=== PATIENT | female | born 1940 | race American Indian/Alaskan Native ===

== ENCOUNTER 2016-07-19 13:33 | Inpatient (IN) | payer MEDICARE, BC ==
[2016-07-19] MEDS ORDERED: Oxycodone/Acetaminophen 5/325 mg Tab PO STA (14:11)
--- NOTE | 2016-07-19 14:16 | C.PDOC ---
History Of Present Illness <Gita Still - Last Filed: 07/19/16 18:57> <BrianJericho R - Last Filed: 07/19/16 20:58> The patient, a 75 y/o female, presents to the ED for evaluation of left hip and left thigh pain which began after she sustained a fall earlier today. Patient states she slipped and fell from two steps. Patient has chronically severe lymphedema in her bilateral lower extremities. Patient denies LOC, headache, neck pain, back pain, or upper/lower extremity numbness/weakness. (TessyKathy fournierGita A) History Per: Patient History/Exam Limitations: no limitations Onset/Duration Of Symptoms: Hrs Current Symptoms Are (Timing): Still Present Additional History Per: Patient - Hip Description Of Injury: Fell - Knee Description Of Injury: Fell <Gita Still - Last Filed: 07/19/16 18:57> <TorresOctaviaJericho R - Last Filed: 07/19/16 20:58> Time Seen by Provider: 07/19/16 13:44 Chief Complaint (Nursing): Lower Extremity Problem/Injury Past Medical History Reviewed: Historical Data, Nursing Documentation, Vital Signs - Medical History PMH: Anemia, HTN, Pneumonia Denies: Chronic Kidney Disease Surgical History: Cholecystectomy (in 2010) Family History: States: Unknown Family Hx - Social History Hx Tobacco Use: No Hx Alcohol Use: No Hx Substance Use: No - Immunization History Hx Tetanus Toxoid Vaccination: No Hx Influenza Vaccination: Yes Hx Pneumococcal Vaccination: Yes <Gita Still - Last Filed: 07/19/16 18:57> Vital Signs: Last Vital Signs Temp 97.9 F 07/19/16 20:45 Pulse 74 07/19/16 20:45 Resp 20 07/19/16 20:45 BP 155/60 H 07/19/16 20:45 Pulse Ox 96 07/19/16 20:45 - [facility] Procedures CENTRAL VENOUS CATHETER PLACEMENT WITH GUIDANCE (02/16/14) PACKED CELL TRANSFUSION (02/16/14) VACCINATION NEC (02/16/14) Review Of Systems Except As Marked, All Systems Reviewed And Found Negative. Respiratory: Negative for: Shortness of Breath Musculoskeletal: Positive for: Other (+left hip and left thigh pain ). Negative for: Neck Pain Neurological: Negative for: Weakness, Numbness, Other (no LOC, no head injury ) <Gita Still - Last Filed: 07/19/16 18:57> Physical Exam - Physical Exam Appears: Non-toxic, No Acute Distress Skin: Normal Color, Warm, Dry Head: Atraumatic, Normacephalic, No Tenderness Eye(s): bilateral: Normal Inspection, EOMI Oral Mucosa: Moist Neck: Normal ROM, Supple Chest: Symmetrical, No Deformity, No Tenderness Cardiovascular: Rhythm Regular, No Murmur Respiratory: Normal Breath Sounds, No Rales, No Rhonchi, No Wheezing Back: Normal Inspection, No Vertebral Tenderness, No Paraspinal Tenderness Extremity: Tenderness (to left buttock and left hip region on palpation ), Capillary Refill (less than 2 seconds), Other (+chornic lymphedema to b/l lower extremities ) Pulses: Left Dorsalis Pedis: Normal, Right Dorsalis Pedis: Normal Neurological/Psych: Oriented x3, Normal Speech, Normal Cognition Gait: Unable To Assess <Gita Still - Last Filed: 07/19/16 18:57> ED Course And Treatment - Laboratory Results Result Diagrams: 07/19/16 18:13 07/19/16 18:13 Lab Interpretation: Abnormal O2 Sat by Pulse Oximetry: 98 (on RA) Pulse Ox Interpretation: Normal - Other Rad Femur XR X-Ray: Interpreted by Me, Viewed By Me, Read By Radiologist Interpretation: Accession No. : [id number]. Patient Name / ID : HORTENSIA CMELROY / [id number]. Exam Date : 07/19/2016 14:54:02 ( Approved ). Study Comment : Sex / Age : F / 75Y. Creator : Radha Kohli MD. Dictator : Radha Kohli MD. Biofuels Engineering Manager : Third Officer : Radha Kohli MD. Approver2 : Report Date : 07/19/2016 16:25:29. My Comment : . Left femur radiographs. Indication: Pain. Comparison: None available. Findings: Examination limited by habitus and patient positioning due to the condition. No acute displaced fracture or dislocation identified. No evidence of radiopaque foreign body. Impression: Limited study. No acute displaced fracture dislocation identified. If symptoms persist or if there is continued clinical concern, x-ray follow-up in 7-10 days should be considered. Pelvis XR X-Ray: Interpreted by Me, Viewed By Me, Read By Radiologist Interpretation: Accession No. : [id number]. Patient Name / ID : HORTENSIA MCELROY / [id number]. Exam Date : 07/19/2016 14:53:45 ( Approved ). Study Comment : Sex / Age : F / 75Y. Creator : Radha Kohli MD. Dictator : Radha Kohli MD. Biofuels Engineering Manager : Third Officer : Radha Kohli MD. Approver2 : Report Date : 07/19/2016 16:23:40. My Comment : . PROCEDURE: Radiographs of the pelvis. HISTORY: pain. COMPARISON: None available. FINDINGS: Examination limited by habitus. BONES: No acute displaced fracture. JOINTS: No dislocation. The pubic symphysis appears unremarkable. OTHER FINDINGS: No significant joint effusion appreciated. Soft tissues appear unremarkable. No evidence of radiopaque foreign body. IVC filter. IMPRESSION: Examination limited by habitus. No acute displaced fracture, dislocation, or significant joint effusion identified. If high clinical index of suspicion for occult fracture persists, cross-sectional imaging may be considered for further evaluation. IVC filter. Lumbar Spine XR X-Ray: Interpreted by Me, Viewed By Me, Read By Radiologist Interpretation: Accession No. : [id number]. Patient Name / ID : HORTENSIA MCELROY / [id number]. Exam Date : 07/19/2016 14:53:29 ( Approved ). Study Comment : Sex / Age : F / 75Y. Creator : Radha Kohli MD. Dictator : Radha Kohli MD. Biofuels Engineering Manager : Third Officer : Radha Kohli MD. Approver2 : Report Date : 07/19/2016 16:20:51. My Comment : . PROCEDURE: Radiographs of the Lumbar Spine. HISTORY: pain. COMPARISON : None available. FINDINGS: Alignment appears satisfactory. Multilevel degenerative changes including small osteophyte formation and intervertebral disc space narrowing. Intervertebral disc space narrowing most severe at L4-L5 and L5-S1. Facet hypertrophy. No acute displaced fracture or subluxation identified. IVC filter at the L2 through L4 level. IMPRESSION: Multilevel degenerative changes. IVC filter. Progress Note: Left Femur XR, Left Hip XR and LS Spine/AP LAT XR ordered and reviewed. Patient received Percocet PO. Reassessment Condition: Improved - Physician Consult Information Physician Contacted: Junito Foster Outcome Of Conversation: admit <Gita Still - Last Filed: 07/19/16 18:57> - Laboratory Results Result Diagrams: 07/19/16 18:13 07/19/16 18:13 <Jericho Torres - Last Filed: 07/19/16 20:58> Disposition Discussed With : Junito Foster Counseled Patient/Family Regarding: Studies Performed, Diagnosis, Need For Followup - Disposition Disposition Time: 16:30 - POA Present On Arrival: None <Gita Still - Last Filed: 07/19/16 18:57> <Jericho Torres - Last Filed: 07/19/16 20:58> - Disposition Disposition: HOME/ ROUTINE Condition: STABLE - Clinical Impression Clinical Impression: Hip pain, Peripheral edema, Fall (on) (from) other stairs and steps, initial encounter, Anemia associated with nutritional deficiency - PA / [employer]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 - Scribe Statement The provider has reviewed the documentation as recorded by the Scribe (Amy Ferreira) <Gita Still - Last Filed: 07/19/16 18:57> <Jericho Torres - Last Filed: 07/19/16 20:58> - Scribe Statement All medical record entries made by the Scribe were at my direction and personally dictated by me. I have reviewed the chart and agree that the record accurately reflects my personal performance of the history, physical exam, medical decision making, and the department course for this patient. I have also personally directed, reviewed, and agree with the discharge instructions and disposition. (Gita Still) Decision To Admit - Pt Status Changed To: Hospital Disposition Of: Inpatient - Admit Certification Admit to Inpatient:: After my assessment, the patient will require hospitalization for at least two midnights. This is because of the severity of symptoms shown, intensity of services needed, and/or the medical risk in this patient being treated as an outpatient. - InPatient: Physician Admission Certification: I certify that this patient requires 2 or more midnights of care for the following reason:: Anemia - . Bed Request Type: Regular <Gita Still - Last Filed: 07/19/16 18:57> <Jericho Torres - Last Filed: 07/19/16 20:58> - . Patient Diagnosis: Hip pain, Peripheral edema, Fall (on) (from) other stairs and steps, initial encounter, Anemia associated with nutritional deficiency Procedures - EJ/Peripheral Line Consent Obtained: verbal consent Skin Cleansed in Sterile Fashion: Yes (inserted on right side of neck ) Size: 20 IV Secured and Dressing Applied: Yes Patient Tolerated Procedure: Well <Jericho Torres - Last Filed: 07/19/16 20:58>
[2016-07-19] MEDS ORDERED: Oxycodone/Acetaminophen 5/325 mg Tab ONE (14:33)
--- NOTE | 2016-07-19 16:22 | RAD ---
PROCEDURE: Radiographs of the Lumbar Spine. HISTORY: pain COMPARISON: None available. FINDINGS: Alignment appears satisfactory. Multilevel degenerative changes including small osteophyte formation and intervertebral disc space narrowing. Intervertebral disc space narrowing most severe at L4-L5 and L5-S1. Facet hypertrophy. No acute displaced fracture or subluxation identified. IVC filter at the L2 through L4 level. IMPRESSION: Multilevel degenerative changes. IVC filter.
--- NOTE | 2016-07-19 16:25 | RAD ---
PROCEDURE: Radiographs of the pelvis. HISTORY: pain COMPARISON: None available. FINDINGS: Examination limited by habitus. BONES: No acute displaced fracture. JOINTS: No dislocation. The pubic symphysis appears unremarkable. OTHER FINDINGS: No significant joint effusion appreciated. Soft tissues appear unremarkable. No evidence of radiopaque foreign body. IVC filter. IMPRESSION: Examination limited by habitus. No acute displaced fracture, dislocation, or significant joint effusion identified. If high clinical index of suspicion for occult fracture persists, cross-sectional imaging may be considered for further evaluation. IVC filter.
--- NOTE | 2016-07-19 16:27 | RAD ---
Left femur radiographs Indication: Pain Comparison: None available Findings: Examination limited by habitus and patient positioning due to the condition. No acute displaced fracture or dislocation identified. No evidence of radiopaque foreign body. Impression: Limited study. No acute displaced fracture dislocation identified. If symptoms persist or if there is continued clinical concern, x-ray follow-up in 7-10 days should be considered.
[2016-07-19 18:24] LABS: INR 1.5
[2016-07-19 18:26] LABS: HEMATOCRIT 17.6 % (34.0-47.0); MEAN CELL VOLUME 102.9 fL (81.0-99.0); MEAN CORPUSCULAR HGB CONC 29.2 g/dL (33.0-37.0); RED CELL DISTRIBUTION WIDTH 24.7 % (11.5-14.5); WHITE BLOOD COUNT 5.1 K/uL (4.8-10.8)
[2016-07-19 18:27] LABS: CHLORIDE 106 mmol/L (98-107); POTASSIUM 4.2 mmol/L (3.6-5.2); SODIUM 143 mmol/L (132-148)
[2016-07-19 18:30] LABS: ALB/GLOB RATIO 0.6 (1.0-2.1); ALKALINE PHOSPHATASE 328 U/L (38-126); ALT/SGPT 33 U/L (9-52); AST/SGOT 31 U/L (14-36); BILIRUBIN,TOTAL 1.9 mg/dL (0.2-1.3); BLOOD UREA NITROGEN 22 mg/dL (7-17); CARBON DIOXIDE 22 mmol/L (22-30); GFR AFRICAN-AMERICAN > 60; GLUCOSE,RANDOM 135 mg/dL (65-105); TOTAL PROTEIN 8.9 g/dL (6.3-8.3)
[2016-07-19 18:31] LABS: CALCIUM 8.3 mg/dl (8.6-10.4)
[2016-07-19 19:17] LABS: BASO % 0.8 % (0.0-2.0); EOS % 0.1 % (0.0-4.0); LYMPH # 1.9 K/uL (1.0-4.3); LYMPH % 36.5 % (20.0-40.0); MONO # 0.9 K/uL (0.0-0.8); MONO % 16.7 % (0.0-10.0); NRBC % 3.4 % (0.0-2.0)
[2016-07-19 22:30] VITALS: BMI 47.0
--- NOTE | 2016-07-19 23:36 | CP.PCM.HP ---
History of Present Illness - History of Present Illness History of Present Illness: 75 year old female who sustained afall in [facility] comes to the [facility] ER for evaluation. Xrays and labs ordered. Hgb 5 , hospitalization was suggested and transfusion with two units of packed cell. Past history includes thrombophlebitis, hypertension, diabetes mellitus and degenerative arthritis. Present on Admission - Present on Admission Any Indicators Present on Admission: No History of DVT/PE: Yes History of Uncontrolled Diabetes: No Urinary Catheter: No Decubitus Ulcer Present: No History Surgical Site Infection Following: None Review of Systems - Review of Systems Systems not reviewed;Unavailable: Unstable Vital Signs - Constitutional Constitutional: Fatigue - EENT Eyes: Dry Eye Ears: Dizziness Nose/Mouth/Throat: Dry Mouth - Cardiovascular Cardiovascular: Dyspnea on Exertion - Respiratory Respiratory: Dyspnea on Exertion - Gastrointestinal Gastrointestinal: Belching - Reproductive: Female Reproductive:Female: Post Menopausal - Menstruation Menstruation: Post Menopausal - Musculoskeletal Musculoskeletal: Arthralgias - Integumentary Integumentary: Dry Skin - Neurological Neurological: Dizziness - Psychiatric Psychiatric: Depression Past Patient History - Infectious Disease Hx of Infectious Diseases: None - Tetanus Immunizations Tetanus Immunization: Unknown, Up to Date - Past Medical History & Family History Past Medical History?: Yes - Past Social History Smoking Status: Never Smoked Chewing Tobacco Use: No Cigar Use: No - CARDIAC Hx Hypertension: Yes - PULMONARY Hx Pneumonia: Yes - NEUROLOGICAL Hx Neurological Disorder: No - HEENT Hx HEENT Problems: No - RENAL Hx Chronic Kidney Disease: No - ENDOCRINE/METABOLIC Hx Diabetes Mellitus Type 1: Yes Hx Diabetes Mellitus Type 2: Yes - HEMATOLOGICAL/ONCOLOGICAL Hx Anemia: Yes Hx Blood Transfusions: Yes - INTEGUMENTARY Hx Dermatological Problems: No - MUSCULOSKELETAL/RHEUMATOLOGICAL Hx Falls: Yes (06/27/16) Other/Comment: Edema of both lower legs for many years. - GASTROINTESTINAL Hx Gastrointestinal Disorders: No - GENITOURINARY/GYNECOLOGICAL Hx Genitourinary Disorders: No - PSYCHIATRIC Hx Substance Use: No - SURGICAL HISTORY Hx Cholecystectomy: Yes (in 2010) - ANESTHESIA Hx Anesthesia: No Hx Anesthesia Reactions: No Hx Malignant Hyperthermia: No Has any member of the family had a problem w/ anesthesia?: No Meds Allergies/Adverse Reactions: Allergies Allergy/AdvReac Type Severity Reaction Status Date / Time No Known Allergies Allergy Verified 07/19/16 13:40 Physical Exam - Constitutional Appears: Chronically Ill - Head Exam Head Exam: NORMAL INSPECTION - Eye Exam Eye Exam: Normal appearance Pupil Exam: NORMAL ACCOMODATION - ENT Exam ENT Exam: Mucous Membranes Dry - Neck Exam Neck exam: Positive for: Normal Inspection - Respiratory Exam Respiratory Exam: Decreased Breath Sounds - Cardiovascular Exam Cardiovascular Exam: Irregular Rhythm - GI/Abdominal Exam GI & Abdominal Exam: Normal Bowel Sounds - Rectal Exam Rectal Exam: Deferred - Exam External exam: NORMAL EXTERNAL EXAM - Extremities Exam Extremities exam: Positive for: tenderness - Back Exam Back exam: NORMAL INSPECTION - Neurological Exam Neurological exam: Oriented x3 - Psychiatric Exam Psychiatric exam: Depressed Results - Vital Signs Recent Vital Signs: Last Vital Signs Temp 97.5 F L 07/19/16 21:01 Pulse 75 07/19/16 21:01 Resp 20 07/19/16 21:01 BP 150/61 07/19/16 21:01 Pulse Ox 96 07/19/16 21:01 - Labs Result Diagrams: 07/19/16 18:13 07/19/16 18:13 Labs: Laboratory Results - last 24 hr 07/19/16 22:46 POC Glucose (mg/dL) 162 H Assessment & Plan (1) Anemia Status: Acute Priority: High (2) Diabetes mellitus type 2 in obese Status: Acute Priority: Medium (3) Degenerative disc disease at L5-S1 level Status: Acute Priority: Medium (4) Thrombophlebitis Status: Acute Priority: Medium (5) Osteoarthritis Status: Acute Priority: Medium
[2016-07-20] MEDS ORDERED: Lidocaine 1% Inj (20ml) INFIL ONE (07:15)
[2016-07-20] MEDS: (Novolin R) Insulin Human Regular 100 units/ml vial SC SCH ×4 (08:12→21:59)
[2016-07-20 08:16] LABS: HEMATOCRIT 23.6 % (34.0-47.0); MEAN CORPUSCULAR HEMOGLOBIN 29.4 pg (27.0-31.0); MEAN CORPUSCULAR HGB CONC 30.3 g/dL (33.0-37.0); MEAN PLATELET VOLUME 7.3 fL (7.2-11.7); RED CELL DISTRIBUTION WIDTH 24.2 % (11.5-14.5); WHITE BLOOD COUNT 6.2 K/uL (4.8-10.8)
[2016-07-20 09:05] LABS: INR 1.5
[2016-07-20] MEDS: Pantoprazole 40 mg EC Tab PO SCH (10:11)
[2016-07-20] MEDS: (Lantus) Insulin Glargine, Recombinant SC SCH (10:17)
[2016-07-20] MEDS: Ammonium Lactate 12% Lotion (225 g) EXT SCH ×2 (10:39→18:22)
--- NOTE | 2016-07-20 11:35 | CP.PCM.CON ---
History of Present Illness - History of Present Illness History of Present Illness: Vascular Surgery Consult Re: HPI: 75F presented S/P fall in her home without head trauma or LOC. Pt was found to be anemic and was admitted for transfusion. Surgery consulted for lymphedema. Pt states that after the fall her legs became more edematous than her usual chronic edema. Denies any pain in her LE bilaterally at this time, no other complaints. Her legs are cared for at the [facility]. PMH: Anemia, thrombocytopenia, DJD, DM, CAD, Thrombophlebitis PSH: IVC filter, Sarita SH: No tobacco, EtOH or Drug use All: NKDA Meds: See JUN, on Coumadin Review of Systems - Review of Systems All systems: reviewed and no additional remarkable complaints except (as per HPI ) Past Patient History - Infectious Disease Hx of Infectious Diseases: None - Tetanus Immunizations Tetanus Immunization: Unknown, Up to Date - Past Medical History & Family History Past Medical History?: Yes - Past Social History Smoking Status: Never Smoked Chewing Tobacco Use: No Cigar Use: No - CARDIAC Hx Hypertension: Yes - PULMONARY Hx Pneumonia: Yes - NEUROLOGICAL Hx Neurological Disorder: No - HEENT Hx HEENT Problems: No - RENAL Hx Chronic Kidney Disease: No - ENDOCRINE/METABOLIC Hx Diabetes Mellitus Type 1: Yes Hx Diabetes Mellitus Type 2: Yes - HEMATOLOGICAL/ONCOLOGICAL Hx Anemia: Yes Hx Blood Transfusions: Yes - INTEGUMENTARY Hx Dermatological Problems: No - MUSCULOSKELETAL/RHEUMATOLOGICAL Hx Falls: Yes (06/27/16) Other/Comment: Edema of both lower legs for many years. - GASTROINTESTINAL Hx Gastrointestinal Disorders: No - GENITOURINARY/GYNECOLOGICAL Hx Genitourinary Disorders: No - PSYCHIATRIC Hx Substance Use: No - SURGICAL HISTORY Hx Cholecystectomy: Yes (in 2010) - ANESTHESIA Hx Anesthesia: No Hx Anesthesia Reactions: No Hx Malignant Hyperthermia: No Has any member of the family had a problem w/ anesthesia?: No Meds Allergies/Adverse Reactions: Allergies Allergy/AdvReac Type Severity Reaction Status Date / Time No Known Allergies Allergy Verified 07/19/16 13:40 - Medications Medications: Current Medications Enalapril Maleate (Vasotec) 20 mg PO BID [facility] Last Admin: 07/20/16 10:11 Dose: 20 mg Ferrous Sulfate (Feosol) 325 mg PO DAILY [facility] Last Admin: 07/20/16 10:11 Dose: 325 mg Insulin Glargine (Lantus) 20 unit SC DAILY [facility] Last Admin: 07/20/16 10:17 Dose: 20 units Insulin Human Regular (Novolin R) 0 unit SC ACHS [facility] PRN Reason: Protocol Last Admin: 07/20/16 08:12 Dose: 1 unit Lactic Acid (Lac-Hydrin 12% Lotion (225 G)) 1 gm EXT BID [facility] Last Admin: 07/20/16 10:39 Dose: 1 gm Lorazepam (Ativan) 0.5 mg PO HS JOSIE Pantoprazole Sodium (Protonix Ec Tab) 40 mg PO DAILY [facility] Last Admin: 07/20/16 10:11 Dose: 40 mg Zolpidem Tartrate (Ambien) 5 mg PO HS PRN PRN Reason: Insomnia Physical Exam - Constitutional Appears: Non-toxic, No Acute Distress - Head Exam Head Exam: ATRAUMATIC, NORMOCEPHALIC - Eye Exam Eye Exam: EOMI. absent: Scleral icterus - ENT Exam ENT Exam: Mucous Membranes Moist Additional comments: trachea midline - Respiratory Exam Respiratory Exam: NORMAL BREATHING PATTERN. absent: Respiratory Distress - Cardiovascular Exam Cardiovascular Exam: RRR, +S1, +S2 - GI/Abdominal Exam GI & Abdominal Exam: Soft. absent: Distended, Tenderness - Rectal Exam Rectal Exam: Deferred - Extremities Exam Extremities exam: Positive for: pedal edema (with chronic venous changes). Negative for: calf tenderness, tenderness - Back Exam Back exam: absent: CVA tenderness (L), CVA tenderness (R) - Neurological Exam Neurological exam: Alert, Oriented x3 - Psychiatric Exam Psychiatric exam: Normal Affect, Normal Mood - Skin Skin Exam: Dry, Warm Results - Vital Signs Recent Vital Signs: Last Vital Signs Temp 97.4 F L 07/20/16 08:00 Pulse 75 07/20/16 08:00 Resp 20 07/20/16 08:00 BP 166/79 H 07/20/16 10:11 Pulse Ox 95 07/20/16 08:00 - Labs Result Diagrams: 07/20/16 07:48 07/19/16 18:13 Labs: Laboratory Results - last 24 hr 07/19/16 07/20/16 07/20/16 22:46 07:05 07:48 WBC 6.2 RBC 2.43 L Hgb 7.1 L D Hct 23.6 L MCV 97.0 D MCH 29.4 MCHC 30.3 L RDW 24.2 H Plt Count 14 L* D MPV 7.3 PT 17.3 H INR 1.5 APTT 30 POC Glucose (mg/dL) 162 H 176 H 07/20/16 11:13 WBC RBC Hgb Hct MCV MCH MCHC RDW Plt Count MPV PT INR APTT POC Glucose (mg/dL) 203 H - Imaging and Cardiology LE x-rays Status: Image reviewed by me, Report reviewed by me Assessment & Plan - Assessment and Plan (Free Text) Assessment: 75F with Chronic Lymphedema of her bilateral LE Plan: Leg elevation. Can apply compression wraps b/l if swelling does not return to chronic state. D/W Dr. Fransico Garces PGY3
--- NOTE | 2016-07-20 11:44 | CARD ---
APPROVED REPORT EKG Measurement Heart [id number] <Conclusion> Normal sinus rhythm Low voltage QRS Cannot rule out Anterior infarct, age undetermined Abnormal ECG
--- NOTE | 2016-07-20 12:16 | CON ---
DATE: 07/20/2016 SUBJECTIVE: This is a 75-year-old woman well known to me from previous interventions, who is seen fo r evaluation of swelling of both legs. The patient also has serious anemia and thrombocytopenia with a platelet count 15,000. PHYSICAL EXAMINATION: The salient features on her physical exam that need to be mentioned are that s he has lymphedema of both legs, right worse than left, with scaling and crusting. IMPRESSION: She needs to wear support stockings, which she has been told to do many times and is amisha ble to do so. She needs to elevate her legs at night; she is unable to do so. In the past, she had had severe problems with thrombophlebitis and was treated with thrombolytic therapy. Unfortunately, she still continues to have serious problems with regard to her legs. At present, with a platelet co unt of 15,000, there is really not too much that we can do and I would simply recommend that the kelly ent be monitored and no plans for any surgical intervention. Should this improve, I would consider h er for other interventions including debridement of the legs, but right now with a platelet count lik e this there is no . Oliverio Bateman Jr., MD cc: [id number] TT: 07/20/2016 12:15:16 Confirmation # [id number] Dictation # [id number] [email or web address]
--- NOTE | 2016-07-20 13:25 | RAD ---
HISTORY: new adm COMPARISON: 02/22/2014 TECHNIQUE: Chest PA and lateral FINDINGS: LUNGS: The prior bilateral upper lobe coalescent airspace opacities/infiltrates have largely cleared. There is now interval venous congestion with a small left pleural effusion suggested PLEURA: Small interval left pleural effusion pleural effusion identified. No pneumothorax apparent. CARDIOVASCULAR: Cardiomegaly OSSEOUS STRUCTURES: No significant abnormalities. VISUALIZED UPPER ABDOMEN: Normal. OTHER FINDINGS: None. IMPRESSION: Interval pulmonary venous congestion, cardiomegaly with left small pleural effusion. Findings consistent with congestive heart failure
[2016-07-20 17:10] LABS: EOS % 0.1 % (0.0-4.0); MEAN CORPUSCULAR HEMOGLOBIN 29.3 pg (27.0-31.0); RETIC% 1.4 % (0.5-1.5)
[2016-07-20 17:21] LABS: CHLORIDE 105 mmol/L (98-107); POTASSIUM 3.9 mmol/L (3.6-5.2); SODIUM 143 mmol/L (132-148)
[2016-07-20 17:24] LABS: BLOOD UREA NITROGEN 20 mg/dL (7-17); CARBON DIOXIDE 24 mmol/L (22-30)
--- NOTE | 2016-07-20 17:24 | CP.PCM.CON ---
History of Present Illness - History of Present Illness History of Present Illness: 75 yo woman with history of pancytopenia for several years extensive work up done in the past including bone marrow biopsy apparently normal. Recent available labs(2013) showing low retics, normal B12, normal iron, neg. hepatitis profiles, normal creatinine, calcium and SPEP with no M spike. US abdomen not showing any splenomegaly. Past Patient History - Infectious Disease Hx of Infectious Diseases: None - Tetanus Immunizations Tetanus Immunization: Unknown, Up to Date - Past Medical History & Family History Past Medical History?: Yes - Past Social History Smoking Status: Never Smoked Chewing Tobacco Use: No Cigar Use: No - CARDIAC Hx Hypertension: Yes - PULMONARY Hx Pneumonia: Yes - NEUROLOGICAL Hx Neurological Disorder: No - HEENT Hx HEENT Problems: No - RENAL Hx Chronic Kidney Disease: No - ENDOCRINE/METABOLIC Hx Diabetes Mellitus Type 1: Yes Hx Diabetes Mellitus Type 2: Yes - HEMATOLOGICAL/ONCOLOGICAL Hx Anemia: Yes Hx Blood Transfusions: Yes - INTEGUMENTARY Hx Dermatological Problems: No - MUSCULOSKELETAL/RHEUMATOLOGICAL Hx Falls: Yes (06/27/16) Other/Comment: Edema of both lower legs for many years. - GASTROINTESTINAL Hx Gastrointestinal Disorders: No - GENITOURINARY/GYNECOLOGICAL Hx Genitourinary Disorders: No - PSYCHIATRIC Hx Substance Use: No - SURGICAL HISTORY Hx Cholecystectomy: Yes (in 2010) - ANESTHESIA Hx Anesthesia: No Hx Anesthesia Reactions: No Hx Malignant Hyperthermia: No Has any member of the family had a problem w/ anesthesia?: No Meds Allergies/Adverse Reactions: Allergies Allergy/AdvReac Type Severity Reaction Status Date / Time No Known Allergies Allergy Verified 07/19/16 13:40 - Medications Medications: Current Medications Enalapril Maleate (Vasotec) 20 mg PO BID [facility] Last Admin: 07/20/16 10:11 Dose: 20 mg Ferrous Sulfate (Feosol) 325 mg PO DAILY [facility] Last Admin: 07/20/16 10:11 Dose: 325 mg Insulin Glargine (Lantus) 20 unit SC DAILY [facility] Last Admin: 07/20/16 10:17 Dose: 20 units Insulin Human Regular (Novolin R) 0 unit SC ACHS [facility] PRN Reason: Protocol Last Admin: 07/20/16 12:23 Dose: 2 unit Lactic Acid (Lac-Hydrin 12% Lotion (225 G)) 1 gm EXT BID [facility] Last Admin: 07/20/16 10:39 Dose: 1 gm Lorazepam (Ativan) 0.5 mg PO HS [facility] Pantoprazole Sodium (Protonix Ec Tab) 40 mg PO DAILY [facility] Last Admin: 07/20/16 10:11 Dose: 40 mg Zolpidem Tartrate (Ambien) 5 mg PO HS PRN PRN Reason: Insomnia Results - Vital Signs Recent Vital Signs: Last Vital Signs Temp 98 F 07/20/16 16:00 Pulse 102 H 07/20/16 16:00 Resp 20 07/20/16 16:00 BP 147/56 L 07/20/16 16:00 Pulse Ox 95 07/20/16 16:00 - Labs Result Diagrams: 07/20/16 17:03 07/20/16 17:03 Labs: Laboratory Results - last 24 hr 07/19/16 07/20/16 07/20/16 22:46 07:05 07:48 WBC 6.2 RBC 2.43 L Hgb 7.1 L D Hct 23.6 L MCV 97.0 D MCH 29.4 MCHC 30.3 L RDW 24.2 H Plt Count 14 L* D MPV 7.3 Differential Comment Smear Path Review PT 17.3 H INR 1.5 APTT 30 POC Glucose (mg/dL) 162 H 176 H 07/20/16 07/20/16 11:13 16:14 WBC RBC Hgb Hct MCV MCH MCHC RDW Plt Count MPV Differential Comment Smear Path Review PT INR APTT POC Glucose (mg/dL) 203 H 208 H Assessment & Plan (1) Pancytopenia Assessment and Plan: 75 yo woman with pancytopenia, slowly progressive, labs and scans not consistent with nutritional etio,viral etio, blood loss, hypersplenism, myelofibrosis or myeloma. Repeat labs and will try and get bone marrow reports(pt. not keen on repeating the test). Will send flow cytometry and cytogenetics of peripheral blood, get CAT scan of abdomen and pelvis Status: Acute
[2016-07-20 17:29] LABS: BASO % 0.4 % (0.0-2.0); HEMATOCRIT 23.6 % (34.0-47.0); LYMPH # 1.5 K/uL (1.0-4.3); LYMPH % 20.8 % (20.0-40.0); MEAN CELL VOLUME 96.8 fL (81.0-99.0); MEAN CORPUSCULAR HGB CONC 30.2 g/dL (33.0-37.0); MEAN PLATELET VOLUME 8.3 fL (7.2-11.7); MONO # 1.1 K/uL (0.0-0.8); MONO % 15.7 % (0.0-10.0); RED CELL DISTRIBUTION WIDTH 24.5 % (11.5-14.5)
[2016-07-20 17:41] LABS: T4 11.4 ug/dL (5.5-11.0)
[2016-07-20] MEDS ORDERED: Iohexol 240 (50 ml) PO ONE (19:30)
--- NOTE | 2016-07-20 22:40 | CP.PCM.PN ---
Subjective - Date & Time of Evaluation Date of Evaluation: 07/20/16 Time of Evaluation: 13:20 - Subjective Subjective: 75 year old female with back pain and severe anemia. Patient hgb 7.5 after 2 units o packed cells. Will order one more unit of packed cells. Objective - Vital Signs/Intake and Output Vital Signs (last 24 hours): Temp Pulse Resp BP Pulse Ox 98 F 102 H 20 148/62 95 07/20/16 16:00 07/20/16 16:00 07/20/16 16:00 07/20/16 18:17 07/20/16 16:00 Intake and Output: 07/20/16 07/21/16 18:59 06:59 Intake Total 500 Balance 500 - Medications Medications: Current Medications Carvedilol (Coreg) 6.25 mg PO BID [facility] Last Admin: 07/20/16 18:17 Dose: 6.25 mg Enalapril Maleate (Vasotec) 20 mg PO BID [facility] Last Admin: 07/20/16 18:17 Dose: 20 mg Ferrous Sulfate (Feosol) 325 mg PO DAILY [facility] Last Admin: 07/20/16 10:11 Dose: 325 mg Insulin Glargine (Lantus) 20 unit SC DAILY [facility] Last Admin: 07/20/16 10:17 Dose: 20 units Insulin Human Regular (Novolin R) 0 unit SC [facility] PRN Reason: Protocol Last Admin: 07/20/16 21:59 Dose: Not Given Lactic Acid (Lac-Hydrin 12% Lotion (225 G)) 1 gm EXT BID [facility] Last Admin: 07/20/16 18:22 Dose: 1 gm Lorazepam (Ativan) 0.5 mg PO HS [facility] Last Admin: 07/20/16 22:00 Dose: 0.5 mg Pantoprazole Sodium (Protonix Ec Tab) 40 mg PO DAILY [facility] Last Admin: 07/20/16 10:11 Dose: 40 mg Zolpidem Tartrate (Ambien) 5 mg PO HS PRN PRN Reason: Insomnia - Labs Labs: 07/20/16 17:03 07/20/16 17:03 PT 17.3 SECONDS (9.7-12.2) H 07/20/16 07:48 INR 1.5 07/20/16 07:48 APTT 30 SECONDS (21-34) 07/20/16 07:48 - Constitutional Appears: No Acute Distress - Head Exam Head Exam: NORMAL INSPECTION - Eye Exam Eye Exam: Normal appearance Pupil Exam: NORMAL ACCOMODATION - ENT Exam ENT Exam: Normal Oropharynx - Neck Exam Neck Exam: Normal Inspection - Respiratory Exam Respiratory Exam: NORMAL BREATHING PATTERN - Cardiovascular Exam Cardiovascular Exam: REGULAR RHYTHM - GI/Abdominal Exam GI & Abdominal Exam: Normal Bowel Sounds - Rectal Exam Rectal Exam: Deferred - Exam External exam: NORMAL EXTERNAL EXAM - Extremities Exam Extremities Exam: Tenderness - Back Exam Back Exam: NORMAL INSPECTION - Neurological Exam Neurological Exam: Oriented x3 - Psychiatric Exam Psychiatric exam: Depressed - Skin Skin Exam: Dry Assessment and Plan (1) Anemia Status: Acute (2) Diabetes mellitus type 2 in obese Status: Acute (3) Degenerative disc disease at L5-S1 level Status: Acute (4) Thrombophlebitis Status: Acute (5) Osteoarthritis Status: Acute (6) Pancytopenia Status: Acute (7) Peripheral edema Status: Acute
--- NOTE | 2016-07-21 07:19 | CP.PCM.PN ---
Subjective - Date & Time of Evaluation Date of Evaluation: 07/21/16 Time of Evaluation: 07:16 - Subjective Subjective: Surgery: Dr. Bateman Patient clinically remains same. No complaints overnight. Patient lower extremity edema remains unchanged. No acute events. Objective - Vital Signs/Intake and Output Vital Signs (last 24 hours): Temp Pulse Resp BP Pulse Ox 97.6 F 80 20 132/72 97 07/21/16 00:37 07/21/16 00:37 07/21/16 00:37 07/21/16 00:37 07/21/16 00:37 Intake and Output: 07/21/16 07/21/16 06:59 18:59 Intake Total 470 Balance 470 - Medications Medications: Current Medications Carvedilol (Coreg) 6.25 mg PO BID [facility] Last Admin: 07/20/16 18:17 Dose: 6.25 mg Enalapril Maleate (Vasotec) 20 mg PO BID [facility] Last Admin: 07/20/16 18:17 Dose: 20 mg Ferrous Sulfate (Feosol) 325 mg PO DAILY [facility] Last Admin: 07/20/16 10:11 Dose: 325 mg Insulin Glargine (Lantus) 20 unit SC DAILY [facility] Last Admin: 07/20/16 10:17 Dose: 20 units Insulin Human Regular (Novolin R) 0 unit SC [facility] PRN Reason: Protocol Last Admin: 07/20/16 21:59 Dose: Not Given Lactic Acid (Lac-Hydrin 12% Lotion (225 G)) 1 gm EXT BID [facility] Last Admin: 07/20/16 18:22 Dose: 1 gm Lorazepam (Ativan) 0.5 mg PO HS [facility] Last Admin: 07/20/16 22:00 Dose: 0.5 mg Pantoprazole Sodium (Protonix Ec Tab) 40 mg PO DAILY [facility] Last Admin: 07/20/16 10:11 Dose: 40 mg Zolpidem Tartrate (Ambien) 5 mg PO HS PRN PRN Reason: Insomnia - Labs Labs: 07/20/16 17:03 07/20/16 17:03 PT 17.3 SECONDS (9.7-12.2) H 07/20/16 07:48 INR 1.5 07/20/16 07:48 APTT 30 SECONDS (21-34) 07/20/16 07:48 - Constitutional Appears: Non-toxic, No Acute Distress - Head Exam Head Exam: ATRAUMATIC, NORMOCEPHALIC - ENT Exam ENT Exam: Mucous Membranes Dry - Respiratory Exam Respiratory Exam: NORMAL BREATHING PATTERN. absent: Respiratory Distress - Extremities Exam Additional comments: lower extremity cobblestone appearance to skin 2/2 chronic LE edema, unchanged Assessment and Plan - Assessment and Plan (Free Text) Assessment: 75 y/o female w/ chronic LE edema Plan: -remains unchanged -severe thrombocytopenia, no surgical intervention -cont LE elevation -medical management per primary -again no surgical plan at this time -further recs per Dr. Bateman [facility] PGY1
[2016-07-21 07:52] LABS: EOS % 0.1 % (0.0-4.0); LYMPH # 1.4 K/uL (1.0-4.3); RED CELL DISTRIBUTION WIDTH 23.7 % (11.5-14.5)
[2016-07-21 07:59] LABS: BASO % 0.5 % (0.0-2.0); LYMPH % 20.9 % (20.0-40.0); MEAN CELL VOLUME 97.3 fL (81.0-99.0); MEAN CORPUSCULAR HEMOGLOBIN 30.1 pg (27.0-31.0); MEAN PLATELET VOLUME 7.8 fL (7.2-11.7); MONO % 14.3 % (0.0-10.0); NRBC % 3.8 % (0.0-2.0); WHITE BLOOD COUNT 6.9 K/uL (4.8-10.8)
[2016-07-21 08:04] LABS: POTASSIUM 3.8 mmol/L (3.6-5.2)
[2016-07-21 08:07] LABS: CALCIUM 8.1 mg/dl (8.6-10.4)
[2016-07-21] MEDS: (Novolin R) Insulin Human Regular 100 units/ml vial SC SCH ×4 (08:44→21:52)
[2016-07-21] MEDS: Pantoprazole 40 mg EC Tab PO SCH (09:10)
[2016-07-21] MEDS: Ammonium Lactate 12% Lotion (225 g) EXT SCH ×2 (09:17→21:54)
[2016-07-21] MEDS: (Lantus) Insulin Glargine, Recombinant SC SCH (09:18)
[2016-07-21] MEDS ORDERED: Iohexol 240 (50 ml) PO ONE (10:15)
--- NOTE | 2016-07-21 14:32 | CON ---
DATE: 07/21/2016 Thank you for asking me to see this patient on pulmonary consultation. I have interviewed the paticandice hadley and her son in detail and reviewed all the lab data and I have written a detailed consult. Please see details on the consult sheet placed in the patient's chart. Abundio Silva MD cc: [id number] TT: 07/21/2016 14:31:45 Confirmation # [id number] Dictation # [id number]
--- NOTE | 2016-07-21 15:42 | CT ---
PROCEDURE: CT Chest, Abdomen and Pelvis without intravenous contrast HISTORY: PANCYTOPENIA, R/O HYPERSPLENISM COMPARISON: Comparison is made to the previous CT of the abdomen and pelvis dated 05/23/2011 TECHNIQUE: Radiation dose: Total exam DLP = 1901.98 mGy-cm. FINDINGS: CT CHEST WITHOUT CONTRAST: LUNGS: Nonspecific ground-glass opacity seen at the upper lobes right more than left. Again seen are linear and nodular opacities at the left lung base. MEDIASTINUM: The thoracic aorta is mildly ectatic and tortuous. The main pulmonary artery is mildly enlarged. Moderately distended esophagus. Large hiatus hernia is again seen. LYMPH NODES: Unremarkable. PLEURA: Trace left-sided pleural effusion. BONES: Unremarkable. OTHER FINDINGS: None. CT ABDOMEN AND PELVIS: LIVER: Unremarkable. No gross lesion or ductal dilatation. GALLBLADDER AND BILE DUCTS: The gallbladder is not visualized. PANCREAS: The pancreas is small in size. SPLEEN: The spleen is normal in size. No significant interval change in the spleen noted compared to the previous exam. ADRENALS: Unremarkable. No mass. KIDNEYS AND URETERS: Bilateral nonobstructing renal calculi. The largest nonobstructing calculus seen at the lower pole of the left kidney measures 7 millimeter. New 9 Again seen is fat containing mass lesion exophytic from the lower pole left kidney measures 3.2 x 2.9 centimeter. VASCULATURE: There is IVC filter in place. . No aortic aneurysm. BOWEL: Unremarkable. No obstruction. No gross mural thickening. APPENDIX: Normal appendix. PERITONEUM: Unremarkable. No free fluid. No free air. LYMPH NODES: Mildly enlarged retroperitoneal lymph nodes BLADDER: Mild urinary bladder wall thickening. The bladder is seen at low position suggestive of mild cystocele. REPRODUCTIVE: Unremarkable. BONES: No acute fracture. OTHER FINDINGS: None. IMPRESSION: No evidence of splenomegaly. No evidence of acute pathology in the abdomen and pelvis. Bilateral nonobstructing renal calculi. Re- demonstration of fat containing mass lesion at the lower pole of the left kidney. Nonspecific ground-glass opacities in the lungs more prominent at the upper lobes right more than left. Moderately dilated esophagus. Large hiatus hernia. [id number] cardiomegaly. Mildly enlarged retroperitoneal lymph nodes.
--- NOTE | 2016-07-21 16:29 | CP.PCM.CON ---
History of Present Illness - History of Present Illness History of Present Illness: 75 year old for edema and ulcers of lower legs chronic in nature . Review of Systems - Constitutional Constitutional: As Per HPI - EENT Eyes: As Per HPI Ears: As Per HPI Nose/Mouth/Throat: As Per HPI - Cardiovascular Cardiovascular: As Per HPI - Respiratory Respiratory: As Per HPI - Gastrointestinal Gastrointestinal: As Per HPI - Genitourinary Genitourinary: As Per HPI - Musculoskeletal Musculoskeletal: As Per HPI - Integumentary Integumentary: As Per HPI - Neurological Neurological: As Per HPI Past Patient History - Infectious Disease Hx of Infectious Diseases: None - Tetanus Immunizations Tetanus Immunization: Unknown, Up to Date - Past Medical History & Family History Past Medical History?: Yes - Past Social History Smoking Status: Never Smoked Chewing Tobacco Use: No Cigar Use: No - CARDIAC Hx Hypertension: Yes - PULMONARY Hx Pneumonia: Yes - NEUROLOGICAL Hx Neurological Disorder: No - HEENT Hx HEENT Problems: No - RENAL Hx Chronic Kidney Disease: No - ENDOCRINE/METABOLIC Hx Diabetes Mellitus Type 1: Yes Hx Diabetes Mellitus Type 2: Yes - HEMATOLOGICAL/ONCOLOGICAL Hx Anemia: Yes Hx Blood Transfusions: Yes - INTEGUMENTARY Hx Dermatological Problems: No - MUSCULOSKELETAL/RHEUMATOLOGICAL Hx Falls: Yes (06/27/16) Other/Comment: Edema of both lower legs for many years. - GASTROINTESTINAL Hx Gastrointestinal Disorders: No - GENITOURINARY/GYNECOLOGICAL Hx Genitourinary Disorders: No - PSYCHIATRIC Hx Substance Use: No - SURGICAL HISTORY Hx Cholecystectomy: Yes (in 2010) - ANESTHESIA Hx Anesthesia: No Hx Anesthesia Reactions: No Hx Malignant Hyperthermia: No Has any member of the family had a problem w/ anesthesia?: No Meds Allergies/Adverse Reactions: Allergies Allergy/AdvReac Type Severity Reaction Status Date / Time No Known Allergies Allergy Verified 07/19/16 13:40 - Medications Medications: Current Medications Albuterol Sulfate (Albuterol 0.042% Inhal Tricia (1.25mg/3ml) Ud) 1.25 mg INH RQ6 [facility] Carvedilol (Coreg) 6.25 mg PO BID [facility] Last Admin: 07/21/16 09:10 Dose: 6.25 mg Enalapril Maleate (Vasotec) 20 mg PO BID [facility] Last Admin: 07/21/16 09:16 Dose: 20 mg Enoxaparin Sodium (Lovenox) 30 mg SC DAILY [facility] Ferrous Sulfate (Feosol) 325 mg PO DAILY [facility] Last Admin: 07/21/16 09:10 Dose: 325 mg Insulin Glargine (Lantus) 20 unit SC DAILY [facility] Last Admin: 07/21/16 09:18 Dose: 20 units Insulin Human Regular (Novolin R) 0 unit SC ACHS [facility] PRN Reason: Protocol Last Admin: 07/21/16 12:28 Dose: 1 unit Lactic Acid (Lac-Hydrin 12% Lotion (225 G)) 1 gm EXT BID [facility] Last Admin: 07/21/16 09:17 Dose: 1 gm Lorazepam (Ativan) 0.5 mg PO HS [facility] Last Admin: 07/20/16 22:00 Dose: 0.5 mg Pantoprazole Sodium (Protonix Ec Tab) 40 mg PO DAILY [facility] Last Admin: 07/21/16 09:10 Dose: 40 mg Zolpidem Tartrate (Ambien) 5 mg PO HS PRN PRN Reason: Insomnia Physical Exam - Extremities Exam Additional comments: o/Chronic Lymphedema b/l with stasis ulcers b/l . Vascular status intact b/l .DP /PT pulses non palp. b/l Ortho Restricted R/O/M of L.Cici. jts. b/l . 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 Results - Vital Signs Recent Vital Signs: Last Vital Signs Temp 97.4 F L 07/21/16 08:00 Pulse 73 07/21/16 12:54 Resp 20 07/21/16 08:00 BP 124/71 07/21/16 09:16 Pulse Ox 97 07/21/16 08:00 - Labs Result Diagrams: 07/21/16 07:47 07/21/16 07:47 Labs: Laboratory Results - last 24 hr 07/20/16 07/20/16 07/20/16 16:14 17:03 21:12 WBC 7.0 RBC 2.44 L Hgb 7.1 L Hct 23.6 L MCV 96.8 MCH 29.3 MCHC 30.2 L RDW 24.5 H Plt Count 17 L* MPV 8.3 Neut % (Auto) 63.0 Lymph % (Auto) 20.8 [place] % (Auto) 15.7 H Eos % (Auto) 0.1 Baso % (Auto) 0.4 Neut # 4.4 Lymph # 1.5 [place] # 1.1 H Eos # 0.0 Baso # 0.0 ESR 136 H Retic Count 1.4 D Sodium 143 Potassium 3.9 Chloride 105 Carbon Dioxide 24 Anion Gap BUN 20 H Creatinine Est GFR ( Amer) Est GFR (Non-Af Amer) POC Glucose (mg/dL) 208 H 219 H Random Glucose Calcium Lactate Dehydrogenase Vitamin B12 > 1000 H Thyroxine (T4) 11.4 H Total T3 1.19 L TSH 3rd Generation 2.30 07/21/16 07/21/16 07:47 11:38 WBC 6.9 RBC 2.16 L Hgb 6.5 L* Hct 21.0 L MCV 97.3 MCH 30.1 MCHC 31.0 L RDW 23.7 H Plt Count 15 L* MPV 7.8 Neut % (Auto) 64.2 Lymph % (Auto) 20.9 [place] % (Auto) 14.3 H Eos % (Auto) 0.1 Baso % (Auto) 0.5 Neut # 4.4 Lymph # 1.4 [place] # 1.0 H Eos # 0.0 Baso # 0.0 ESR Retic Count Sodium 143 Potassium 3.8 Chloride 106 Carbon Dioxide 24 Anion Gap 17 BUN 19 H Creatinine 1.1 Est GFR ( Amer) 58 Est GFR (Non-Af Amer) 48 POC Glucose (mg/dL) 189 H Random Glucose 150 H Calcium 8.1 L Lactate Dehydrogenase 998 H Vitamin B12 Thyroxine (T4) Total T3 TSH 3rd Generation Assessment & Plan - Assessment and Plan (Free Text) Assessment: A/Venous Ulcers with chronic Lymphedema b/l .legs Plan: P/Apply Xeroform Gauze dry dressing and Santos Bandages b/l .
--- NOTE | 2016-07-21 16:43 | CP.PCM.CON ---
History of Present Illness - History of Present Illness History of Present Illness: 75 y/o female patient with PMHx of Anemia, HTN, Pneumonia seen and evaluated at bedside with Dr. Thompson after request for podiatry consult. Patient was resting comfortably in bed and in NAD. Patient stats that she has been having bilateral lower extremity edema and chronic ulcers for long time. Patient states that she gets pain sometimes. Patient did not have any lower extremity dressing at this time. Past Patient History - Infectious Disease Hx of Infectious Diseases: None - Tetanus Immunizations Tetanus Immunization: Unknown, Up to Date - Past Medical History & Family History Past Medical History?: Yes - Past Social History Smoking Status: Never Smoked Chewing Tobacco Use: No Cigar Use: No - CARDIAC Hx Hypertension: Yes - PULMONARY Hx Pneumonia: Yes - NEUROLOGICAL Hx Neurological Disorder: No - HEENT Hx HEENT Problems: No - RENAL Hx Chronic Kidney Disease: No - ENDOCRINE/METABOLIC Hx Diabetes Mellitus Type 1: Yes Hx Diabetes Mellitus Type 2: Yes - HEMATOLOGICAL/ONCOLOGICAL Hx Anemia: Yes Hx Blood Transfusions: Yes - INTEGUMENTARY Hx Dermatological Problems: No - MUSCULOSKELETAL/RHEUMATOLOGICAL Hx Falls: Yes (06/27/16) Other/Comment: Edema of both lower legs for many years. - GASTROINTESTINAL Hx Gastrointestinal Disorders: No - GENITOURINARY/GYNECOLOGICAL Hx Genitourinary Disorders: No - PSYCHIATRIC Hx Substance Use: No - SURGICAL HISTORY Hx Cholecystectomy: Yes (in 2010) - ANESTHESIA Hx Anesthesia: No Hx Anesthesia Reactions: No Hx Malignant Hyperthermia: No Has any member of the family had a problem w/ anesthesia?: No Meds Allergies/Adverse Reactions: Allergies Allergy/AdvReac Type Severity Reaction Status Date / Time No Known Allergies Allergy Verified 07/19/16 13:40 - Medications Medications: Current Medications Albuterol Sulfate (Albuterol 0.042% Inhal Tricia (1.25mg/3ml) Ud) 1.25 mg INH RQ6 [facility] Carvedilol (Coreg) 6.25 mg PO BID [facility] Last Admin: 07/21/16 09:10 Dose: 6.25 mg Enalapril Maleate (Vasotec) 20 mg PO BID [facility] Last Admin: 07/21/16 09:16 Dose: 20 mg Enoxaparin Sodium (Lovenox) 30 mg SC DAILY [facility] Ferrous Sulfate (Feosol) 325 mg PO DAILY [facility] Last Admin: 07/21/16 09:10 Dose: 325 mg Insulin Glargine (Lantus) 20 unit SC DAILY [facility] Last Admin: 07/21/16 09:18 Dose: 20 units Insulin Human Regular (Novolin R) 0 unit SC ACHS [facility] PRN Reason: Protocol Last Admin: 07/21/16 12:28 Dose: 1 unit Lactic Acid (Lac-Hydrin 12% Lotion (225 G)) 1 gm EXT BID [facility] Last Admin: 07/21/16 09:17 Dose: 1 gm Lorazepam (Ativan) 0.5 mg PO HS [facility] Last Admin: 07/20/16 22:00 Dose: 0.5 mg Pantoprazole Sodium (Protonix Ec Tab) 40 mg PO DAILY [facility] Last Admin: 07/21/16 09:10 Dose: 40 mg Zolpidem Tartrate (Ambien) 5 mg PO HS PRN PRN Reason: Insomnia Physical Exam - Constitutional Appears: Non-toxic, No Acute Distress - Extremities Exam Additional comments: Vascular: DP and PT non-palpable, CFT is less than 4 seconds, lower extremity edema noted ( R>L), discolored skin Derm: Chronic circumferential ulcer noted to bilateral lower extremities, no sings of infection, no drainage,( +) malodor,elongated and thickened toe nails noted ( x10) Ortho: Limited ROM due to edema Neuro:diminished protective sensation and light touch - Neurological Exam Neurological exam: Alert, CN II-XII Intact Results - Vital Signs Recent Vital Signs: Last Vital Signs Temp 97.4 F L 07/21/16 08:00 Pulse 73 07/21/16 12:54 Resp 20 07/21/16 08:00 BP 124/71 07/21/16 09:16 Pulse Ox 97 07/21/16 08:00 - Labs Result Diagrams: 07/21/16 07:47 07/21/16 07:47 Labs: Laboratory Results - last 24 hr 07/20/16 07/20/16 07/21/16 17:03 21:12 07:47 WBC 7.0 6.9 RBC 2.44 L 2.16 L Hgb 7.1 L 6.5 L* Hct 23.6 L 21.0 L MCV 96.8 97.3 MCH 29.3 30.1 MCHC 30.2 L 31.0 L RDW 24.5 H 23.7 H Plt Count 17 L* 15 L* MPV 8.3 7.8 Neut % (Auto) 63.0 64.2 Lymph % (Auto) 20.8 20.9 [place] % (Auto) 15.7 H 14.3 H Eos % (Auto) 0.1 0.1 Baso % (Auto) 0.4 0.5 Neut # 4.4 4.4 Lymph # 1.5 1.4 [place] # 1.1 H 1.0 H Eos # 0.0 0.0 Baso # 0.0 0.0 ESR 136 H Retic Count 1.4 D Sodium 143 143 Potassium 3.9 3.8 Chloride 105 106 Carbon Dioxide 24 24 Anion Gap 17 BUN 20 H 19 H Creatinine 1.1 Est GFR ( Amer) 58 Est GFR (Non-Af Amer) 48 POC Glucose (mg/dL) 219 H Random Glucose 150 H Calcium 8.1 L Lactate Dehydrogenase 998 H Vitamin B12 > 1000 H Thyroxine (T4) 11.4 H Total T3 1.19 L TSH 3rd Generation 2.30 07/21/16 11:38 WBC RBC Hgb Hct MCV MCH MCHC RDW Plt Count MPV Neut % (Auto) Lymph % (Auto) [place] % (Auto) Eos % (Auto) Baso % (Auto) Neut # Lymph # [place] # Eos # Baso # ESR Retic Count Sodium Potassium Chloride Carbon Dioxide Anion Gap BUN Creatinine Est GFR ( Amer) Est GFR (Non-Af Amer) POC Glucose (mg/dL) 189 H Random Glucose Calcium Lactate Dehydrogenase Vitamin B12 Thyroxine (T4) Total T3 TSH 3rd Generation Assessment & Plan - Assessment and Plan (Free Text) Assessment: 75 y/o female patient with circumferential type chronic ulcer with Lymphedema bilateral lower extremities. Plan: Patient seen and evaluated at bedside with attending Dr. Thompson All the questions and concerns were addressed Lab and vitals were reviewed Applied Xeroform, ABD pads, Kerlix and OCHOA to bilateral lower extremity Will order off loading boots Elongated toe nails will be debrided at bedside tomorrow. Podiatry will continue to follow while patient remains in house.
--- NOTE | 2016-07-21 18:08 | CP.PCM.PN ---
Subjective - Date & Time of Evaluation Date of Evaluation: 07/21/16 Time of Evaluation: 18:05 - Subjective Subjective: The patient still remains HALL, in bed, trying to eat. Several new ecchymoses, no active bleeding reported by patient or nursing staff. Objective - Vital Signs/Intake and Output Vital Signs (last 24 hours): Temp Pulse Resp BP Pulse Ox 97.7 F 67 20 122/74 98 07/21/16 16:00 07/21/16 16:00 07/21/16 16:00 07/21/16 17:41 07/21/16 16:00 Intake and Output: 07/21/16 07/21/16 06:59 18:59 Intake Total 470 Balance 470 - Medications Medications: Current Medications Albuterol Sulfate (Albuterol 0.042% Inhal Tricia (1.25mg/3ml) Ud) 1.25 mg INH RQ6 [facility] Carvedilol (Coreg) 6.25 mg PO BID [facility] Last Admin: 07/21/16 17:40 Dose: 6.25 mg Enalapril Maleate (Vasotec) 20 mg PO BID [facility] Last Admin: 07/21/16 17:41 Dose: 20 mg Enoxaparin Sodium (Lovenox) 30 mg SC DAILY [facility] Ferrous Sulfate (Feosol) 325 mg PO DAILY [facility] Last Admin: 07/21/16 09:10 Dose: 325 mg Insulin Glargine (Lantus) 20 unit SC DAILY [facility] Last Admin: 07/21/16 09:18 Dose: 20 units Insulin Human Regular (Novolin R) 0 unit SC ACHS [facility] PRN Reason: Protocol Last Admin: 07/21/16 17:41 Dose: 2 unit Lactic Acid (Lac-Hydrin 12% Lotion (225 G)) 1 gm EXT BID [facility] Last Admin: 07/21/16 09:17 Dose: 1 gm Lorazepam (Ativan) 0.5 mg PO HS [facility] Last Admin: 07/20/16 22:00 Dose: 0.5 mg Pantoprazole Sodium (Protonix Ec Tab) 40 mg PO DAILY [facility] Last Admin: 07/21/16 09:10 Dose: 40 mg Zolpidem Tartrate (Ambien) 5 mg PO HS PRN PRN Reason: Insomnia - Labs Labs: 07/21/16 07:47 07/21/16 07:47 PT 17.3 SECONDS (9.7-12.2) H 07/20/16 07:48 INR 1.5 07/20/16 07:48 APTT 30 SECONDS (21-34) 07/20/16 07:48 Assessment and Plan (1) Pancytopenia Assessment & Plan: Severe symptomatic pancytopenia, labs not pointing towards iron def or nutritional etio. Differential of peripheral blood, not showing any blasts or immature cells. PRN transfusions of PRBCs and platelets for now. Await flow results, will get results of old bone marrow biopsy. May need venous access Status: Acute
[2016-07-21] MEDS: Albuterol 0.042% Inhal Sol (1.25 mg/3 mL) UD INH SCH (19:40)
--- NOTE | 2016-07-21 22:13 | CP.PCM.PN ---
Subjective - Date & Time of Evaluation Date of Evaluation: 07/21/16 Time of Evaluation: 13:20 - Subjective Subjective: Patient alert and responsive. Presently after 2 tranfusions Hgb 6.5. Patient evaluated by hematology. Will need platlet tranfusion. Objective - Vital Signs/Intake and Output Vital Signs (last 24 hours): Temp Pulse Resp BP Pulse Ox 98.6 F 74 20 123/69 98 07/21/16 20:57 07/21/16 20:57 07/21/16 20:57 07/21/16 20:57 07/21/16 16:00 Intake and Output: 07/21/16 07/22/16 18:59 06:59 Intake Total 340 Balance 340 - Medications Medications: Current Medications Albuterol Sulfate (Albuterol 0.042% Inhal Tricia (1.25mg/3ml) Ud) 1.25 mg INH RQ6 [facility] Last Admin: 07/21/16 19:40 Dose: 1.25 mg Carvedilol (Coreg) 6.25 mg PO BID [facility] Last Admin: 07/21/16 17:40 Dose: 6.25 mg Enalapril Maleate (Vasotec) 20 mg PO BID [facility] Last Admin: 07/21/16 17:41 Dose: 20 mg Enoxaparin Sodium (Lovenox) 30 mg SC DAILY [facility] Ferrous Sulfate (Feosol) 325 mg PO DAILY [facility] Last Admin: 07/21/16 09:10 Dose: 325 mg Insulin Glargine (Lantus) 20 unit SC DAILY [facility] Last Admin: 07/21/16 09:18 Dose: 20 units Insulin Human Regular (Novolin R) 0 unit SC [facility] PRN Reason: Protocol Last Admin: 07/21/16 21:52 Dose: Not Given Lactic Acid (Lac-Hydrin 12% Lotion (225 G)) 1 gm EXT BID [facility] Last Admin: 07/21/16 21:54 Dose: 1 gm Lorazepam (Ativan) 0.5 mg PO HS [facility] Last Admin: 07/21/16 21:55 Dose: Not Given Pantoprazole Sodium (Protonix Ec Tab) 40 mg PO DAILY [facility] Last Admin: 07/21/16 09:10 Dose: 40 mg Zolpidem Tartrate (Ambien) 5 mg PO HS PRN PRN Reason: Insomnia - Labs Labs: 07/21/16 07:47 07/21/16 07:47 PT 17.3 SECONDS (9.7-12.2) H 07/20/16 07:48 INR 1.5 07/20/16 07:48 APTT 30 SECONDS (21-34) 07/20/16 07:48 - Constitutional Appears: No Acute Distress - Head Exam Head Exam: NORMOCEPHALIC - Eye Exam Eye Exam: Normal appearance Pupil Exam: NORMAL ACCOMODATION - ENT Exam ENT Exam: Normal Exam - Neck Exam Neck Exam: Normal Inspection - Respiratory Exam Respiratory Exam: Decreased Breath Sounds - Cardiovascular Exam Cardiovascular Exam: REGULAR RHYTHM - GI/Abdominal Exam GI & Abdominal Exam: Normal Bowel Sounds - Rectal Exam Rectal Exam: Deferred - Exam External exam: NORMAL EXTERNAL EXAM - Extremities Exam Extremities Exam: Joint Swelling - Back Exam Back Exam: NORMAL INSPECTION - Neurological Exam Neurological Exam: Oriented x3 - Psychiatric Exam Psychiatric exam: Depressed - Skin Skin Exam: Dry Assessment and Plan (1) Anemia Status: Acute (2) Diabetes mellitus type 2 in obese Status: Acute (3) Degenerative disc disease at L5-S1 level Status: Acute (4) Thrombophlebitis Status: Acute (5) Osteoarthritis Status: Acute (6) Pancytopenia Status: Acute (7) Peripheral edema Status: Acute
[2016-07-22] MEDS: Albuterol 0.042% Inhal Sol (1.25 mg/3 mL) UD INH SCH ×3 (01:18→13:43)
[2016-07-22] MEDS: (Novolin R) Insulin Human Regular 100 units/ml vial SC SCH ×4 (07:58→21:38)
--- NOTE | 2016-07-22 08:48 | CP.PCM.PN ---
Subjective - Date & Time of Evaluation Date of Evaluation: 07/22/16 Time of Evaluation: 08:25 - Subjective Subjective: Pt seen for follow up of ulcers and edema of lower legs chronic in nature . Objective - Vital Signs/Intake and Output Vital Signs (last 24 hours): Temp Pulse Resp BP Pulse Ox 98.7 F 70 18 140/77 96 07/22/16 04:58 07/22/16 04:58 07/22/16 04:58 07/22/16 05:50 07/22/16 00:00 Intake and Output: 07/22/16 07/22/16 06:59 18:59 Intake Total 1615 Balance 1615 - Medications Medications: Current Medications Albuterol Sulfate (Albuterol 0.042% Inhal Tricia (1.25mg/3ml) Ud) 1.25 mg INH RQ6 [facility] Last Admin: 07/22/16 08:23 Dose: 1.25 mg Carvedilol (Coreg) 6.25 mg PO BID [facility] Last Admin: 07/21/16 17:40 Dose: 6.25 mg Enalapril Maleate (Vasotec) 20 mg PO BID [facility] Last Admin: 07/21/16 17:41 Dose: 20 mg Enoxaparin Sodium (Lovenox) 30 mg SC DAILY [facility] Ferrous Sulfate (Feosol) 325 mg PO DAILY [facility] Last Admin: 07/21/16 09:10 Dose: 325 mg Insulin Glargine (Lantus) 20 unit SC DAILY [facility] Last Admin: 07/21/16 09:18 Dose: 20 units Insulin Human Regular (Novolin R) 0 unit SC ACHS [facility] PRN Reason: Protocol Last Admin: 07/22/16 07:58 Dose: Not Given Lactic Acid (Lac-Hydrin 12% Lotion (225 G)) 1 gm EXT BID [facility] Last Admin: 07/21/16 21:54 Dose: 1 gm Lorazepam (Ativan) 0.5 mg PO HS [facility] Last Admin: 07/21/16 21:55 Dose: Not Given Pantoprazole Sodium (Protonix Ec Tab) 40 mg PO DAILY [facility] Last Admin: 07/21/16 09:10 Dose: 40 mg Zolpidem Tartrate (Ambien) 5 mg PO HS PRN PRN Reason: Insomnia - Labs Labs: 07/21/16 07:47 07/21/16 07:47 PT 17.3 SECONDS (9.7-12.2) H 07/20/16 07:48 INR 1.5 07/20/16 07:48 APTT 30 SECONDS (21-34) 07/20/16 07:48 - Extremities Exam Additional comments: O/Venous ulcers b/l lower legs with chronic lymphedema . Vascular status grossly intact b/l . No sign of infection noted. Ortho R-O-M decreased L.E. b/l . D.M. neuropathy b/l . Assessment and Plan - Assessment and Plan (Free Text) Assessment: A/Venous Ulcer with Lymphedema b/l . Plan: P/Continue Xeroform dressing daily . Lower extremity Venous Duplex Scan to R/O DVT.
[2016-07-22] MEDS: Pantoprazole 40 mg EC Tab PO SCH (11:14)
[2016-07-22] MEDS: Enoxaparin 30 mg Syringe SC SCH (11:15)
[2016-07-22] MEDS: (Lantus) Insulin Glargine, Recombinant SC SCH (11:19)
[2016-07-22] MEDS: Ammonium Lactate 12% Lotion (225 g) EXT SCH ×2 (11:22→18:00)
[2016-07-22 11:29] LABS: MEAN PLATELET VOLUME 9.9 fL (7.2-11.7)
[2016-07-22 11:31] LABS: INR 1.3
[2016-07-22 11:39] LABS: BASO % 0.5 % (0.0-2.0); EOS % 0.1 % (0.0-4.0); HEMATOCRIT 27.8 % (34.0-47.0); LYMPH # 1.2 K/uL (1.0-4.3); LYMPH % 19.8 % (20.0-40.0); MEAN CORPUSCULAR HEMOGLOBIN 28.5 pg (27.0-31.0); MEAN CORPUSCULAR HGB CONC 30.9 g/dL (33.0-37.0); MONO # 0.8 K/uL (0.0-0.8); MONO % 13.2 % (0.0-10.0); NRBC % 4.6 % (0.0-2.0); WHITE BLOOD COUNT 6.3 K/uL (4.8-10.8)
[2016-07-22 11:40] LABS: MEAN CELL VOLUME 92.4 fL (81.0-99.0)
[2016-07-22 11:48] LABS: CHLORIDE 104 mmol/L (98-107); POTASSIUM 4.2 mmol/L (3.6-5.2); SODIUM 141 mmol/L (132-148)
[2016-07-22 11:50] LABS: AST/SGOT 35 U/L (14-36); BILIRUBIN,TOTAL 1.8 mg/dL (0.2-1.3); CARBON DIOXIDE 22 mmol/L (22-30); GFR AFRICAN-AMERICAN > 60
[2016-07-22 11:51] LABS: ALB/GLOB RATIO 0.6 (1.0-2.1); ALKALINE PHOSPHATASE 225 U/L (38-126); ALT/SGPT 17 U/L (9-52); BLOOD UREA NITROGEN 18 mg/dL (7-17); CALCIUM 8.2 mg/dl (8.6-10.4); GLUCOSE,RANDOM 170 mg/dL (65-105); TOTAL PROTEIN 8.6 g/dL (6.3-8.3)
--- NOTE | 2016-07-22 12:48 | RAD ---
HISTORY: pul. congestion COMPARISON: 07/20/2016 FINDINGS: LUNGS: Vague opacity at right lung base. PLEURA: No significant pleural effusion identified, no pneumothorax apparent. CARDIOVASCULAR: Congestive change. OSSEOUS STRUCTURES: No significant abnormalities. VISUALIZED UPPER ABDOMEN: Normal. OTHER FINDINGS: None. IMPRESSION: Ill-defined opacity at right base. Congestive change.
--- NOTE | 2016-07-22 21:50 | CP.PCM.PN ---
Subjective - Date & Time of Evaluation Date of Evaluation: 07/22/16 Time of Evaluation: 16:10 - Subjective Subjective: Alert and responsive. Hgb 8.5 and serum calcium 8.2. Chest xray reveals ground glass opacities in both lungs. CT scan of the abdomen reveals bilateral non obstructing renal calculi. Will repeat labs in AM. Objective - Vital Signs/Intake and Output Vital Signs (last 24 hours): Temp Pulse Resp BP Pulse Ox 98.3 F 66 22 128/72 95 07/22/16 16:00 07/22/16 16:00 07/22/16 16:00 07/22/16 17:34 07/22/16 16:00 Intake and Output: 07/22/16 07/23/16 18:59 06:59 Intake Total 500 Balance 500 - Medications Medications: Current Medications Albuterol Sulfate (Albuterol 0.042% Inhal Tricia (1.25mg/3ml) Ud) 1.25 mg INH RQ6 [facility] Last Admin: 07/22/16 13:43 Dose: 1.25 mg Carvedilol (Coreg) 6.25 mg PO BID [facility] Last Admin: 07/22/16 17:34 Dose: 6.25 mg Enalapril Maleate (Vasotec) 20 mg PO BID [facility] Last Admin: 07/22/16 17:34 Dose: 20 mg Enoxaparin Sodium (Lovenox) 30 mg SC DAILY [facility] Last Admin: 07/22/16 11:15 Dose: 30 mg Ferrous Sulfate (Feosol) 325 mg PO DAILY [facility] Last Admin: 07/22/16 11:14 Dose: 325 mg Insulin Glargine (Lantus) 20 unit SC DAILY [facility] Last Admin: 07/22/16 11:19 Dose: 20 units Insulin Human Regular (Novolin R) 0 unit SC [facility] PRN Reason: Protocol Last Admin: 07/22/16 21:38 Dose: Not Given Lactic Acid (Lac-Hydrin 12% Lotion (225 G)) 1 gm EXT BID [facility] Last Admin: 07/22/16 18:00 Dose: 1 gm Lorazepam (Ativan) 0.5 mg PO HS [facility] Last Admin: 07/22/16 21:44 Dose: Not Given Pantoprazole Sodium (Protonix Ec Tab) 40 mg PO DAILY [facility] Last Admin: 07/22/16 11:14 Dose: 40 mg Zolpidem Tartrate (Ambien) 5 mg PO HS PRN PRN Reason: Insomnia - Labs Labs: 07/22/16 11:31 07/22/16 11:16 PT 15.1 SECONDS (9.7-12.2) H 07/22/16 11:48 INR 1.3 07/22/16 11:48 APTT 25 SECONDS (21-34) D 07/22/16 11:48 - Constitutional Appears: No Acute Distress - Head Exam Head Exam: NORMAL INSPECTION - Eye Exam Eye Exam: Normal appearance - ENT Exam ENT Exam: Normal External Ear Exam - Neck Exam Neck Exam: Normal Inspection - Respiratory Exam Respiratory Exam: Decreased Breath Sounds - Cardiovascular Exam Cardiovascular Exam: REGULAR RHYTHM - GI/Abdominal Exam GI & Abdominal Exam: Hyperactive Bowel Sounds - Rectal Exam Rectal Exam: Deferred - Exam External exam: NORMAL EXTERNAL EXAM - Extremities Exam Extremities Exam: Calf Tenderness - Neurological Exam Neurological Exam: Oriented x3 - Psychiatric Exam Psychiatric exam: Depressed - Skin Skin Exam: Dry Assessment and Plan (1) Anemia Status: Acute (2) Diabetes mellitus type 2 in obese Status: Acute (3) Degenerative disc disease at L5-S1 level Status: Acute (4) Thrombophlebitis Status: Acute (5) Osteoarthritis Status: Acute (6) Pancytopenia Status: Acute (7) Peripheral edema Status: Acute
--- NOTE | 2016-07-22 23:56 | CP.PCM.CON ---
History of Present Illness - History of Present Illness History of Present Illness: 75 years old female hospitalized following a fall with pain in the left hip and leg. She was found to have a pancytopenia, a marked lymphedema of both lower extremities with ulcerations. She is being evaluated and treated by Hemalologist , [employer]er and ID. Markedly obese, she is complaining of SOB. Her echocardiogram reveals a normal systolic LV function with a grade diastolic dysfunction, a minimal TR. After transfusions of PRC and Platelets, today her WBC:6.200 Hgb: 8.6 Platelets: 61,000. Review of Systems - Respiratory Respiratory: Dyspnea - Integumentary Integumentary: Skin Ulcer Additional comments: Ulcerations of both lower legs with marked chronic lymphedema. Past Patient History - Infectious Disease Hx of Infectious Diseases: None - Tetanus Immunizations Tetanus Immunization: Unknown, Up to Date - Past Medical History & Family History Past Medical History?: Yes - Past Social History Smoking Status: Never Smoked Chewing Tobacco Use: No Cigar Use: No Alcohol: None Home Situation {Lives}: With Family Domestic Violence: Negative - CARDIAC Hx Hypertension: Yes - PULMONARY Hx Pneumonia: Yes - NEUROLOGICAL Hx Neurological Disorder: No - HEENT Hx HEENT Problems: No - RENAL Hx Chronic Kidney Disease: No - ENDOCRINE/METABOLIC Hx Diabetes Mellitus Type 1: Yes Hx Diabetes Mellitus Type 2: Yes - HEMATOLOGICAL/ONCOLOGICAL Hx Anemia: Yes Hx Blood Transfusions: Yes - INTEGUMENTARY Hx Dermatological Problems: No - MUSCULOSKELETAL/RHEUMATOLOGICAL Hx Falls: Yes (06/27/16) Other/Comment: Edema of both lower legs for many years. - GASTROINTESTINAL Hx Gastrointestinal Disorders: No - GENITOURINARY/GYNECOLOGICAL Hx Genitourinary Disorders: No - PSYCHIATRIC Hx Substance Use: No - SURGICAL HISTORY Hx Cholecystectomy: Yes (in 2010) - ANESTHESIA Hx Anesthesia: No Hx Anesthesia Reactions: No Hx Malignant Hyperthermia: No Has any member of the family had a problem w/ anesthesia?: No Meds Allergies/Adverse Reactions: Allergies Allergy/AdvReac Type Severity Reaction Status Date / Time No Known Allergies Allergy Verified 07/19/16 13:40 - Medications Medications: Current Medications Albuterol Sulfate (Albuterol 0.042% Inhal Tricia (1.25mg/3ml) Ud) 1.25 mg INH RQ6 [facility] Last Admin: 07/22/16 13:43 Dose: 1.25 mg Carvedilol (Coreg) 6.25 mg PO BID [facility] Last Admin: 07/22/16 17:34 Dose: 6.25 mg Enalapril Maleate (Vasotec) 20 mg PO BID [facility] Last Admin: 07/22/16 17:34 Dose: 20 mg Enoxaparin Sodium (Lovenox) 30 mg SC DAILY [facility] Last Admin: 07/22/16 11:15 Dose: 30 mg Ferrous Sulfate (Feosol) 325 mg PO DAILY [facility] Last Admin: 07/22/16 11:14 Dose: 325 mg Insulin Glargine (Lantus) 20 unit SC DAILY [facility] Last Admin: 07/22/16 11:19 Dose: 20 units Insulin Human Regular (Novolin R) 0 unit SC [facility] PRN Reason: Protocol Last Admin: 07/22/16 21:38 Dose: Not Given Lactic Acid (Lac-Hydrin 12% Lotion (225 G)) 1 gm EXT BID [facility] Last Admin: 07/22/16 18:00 Dose: 1 gm Lorazepam (Ativan) 0.5 mg PO HS [facility] Last Admin: 07/22/16 21:44 Dose: Not Given Pantoprazole Sodium (Protonix Ec Tab) 40 mg PO DAILY [facility] Last Admin: 07/22/16 11:14 Dose: 40 mg Zolpidem Tartrate (Ambien) 5 mg PO HS PRN PRN Reason: Insomnia Physical Exam - Constitutional Appears: Chronically Ill - Head Exam Head Exam: NORMAL INSPECTION - Eye Exam Eye Exam: Normal appearance - ENT Exam ENT Exam: Normal Exam - Neck Exam Neck exam: Positive for: Normal Inspection - Respiratory Exam Respiratory Exam: Rhonchi Additional comments: Rhonchi at both bases. - Cardiovascular Exam Cardiovascular Exam: REGULAR RHYTHM - GI/Abdominal Exam GI & Abdominal Exam: Normal Bowel Sounds, Soft - Rectal Exam Rectal Exam: Deferred - Extremities Exam Extremities exam: Positive for: pedal edema - Back Exam Back exam: NORMAL INSPECTION - Neurological Exam Neurological exam: Alert, CN II-XII Intact, Oriented x3 - Psychiatric Exam Psychiatric exam: Anxious - Skin Additional comments: Marked edema of the lower legs with ulcerations. Results - Vital Signs Recent Vital Signs: Last Vital Signs Temp 98.3 F 07/22/16 16:00 Pulse 66 07/22/16 16:00 Resp 22 07/22/16 16:00 BP 128/72 07/22/16 17:34 Pulse Ox 95 03/25/17 16:00 - Labs Result Diagrams: 07/22/16 11:31 07/22/16 11:16 Labs: Laboratory Results - last 24 hr 07/22/16 07/22/16 07/22/16 07:30 11:16 11:31 WBC 6.3 RBC 3.01 L Hgb 8.6 L D Hct 27.8 L MCV 92.4 D MCH 28.5 MCHC 30.9 L RDW 22.0 H Plt Count 61 L D MPV 9.9 Neut % (Auto) 66.4 Lymph % (Auto) 19.8 L [place] % (Auto) 13.2 H Eos % (Auto) 0.1 Baso % (Auto) 0.5 Neut # 4.2 Lymph # 1.2 [place] # 0.8 Eos # 0.0 Baso # 0.0 PT INR APTT Sodium 141 Potassium 4.2 Chloride 104 Carbon Dioxide 22 Anion Gap 20 BUN 18 H Creatinine 0.9 Est GFR ( Amer) > 60 Est GFR (Non-Af Amer) > 60 POC Glucose (mg/dL) 147 H Random Glucose 170 H Calcium 8.2 L Total Bilirubin 1.8 H AST 35 ALT 17 Alkaline Phosphatase 225 H D Total Protein 8.6 H Albumin 3.3 L Globulin 5.4 H Albumin/Globulin Ratio 0.6 L 07/22/16 07/22/16 07/22/16 11:48 16:18 21:03 WBC RBC Hgb Hct MCV MCH MCHC RDW Plt Count MPV Neut % (Auto) Lymph % (Auto) [place] % (Auto) Eos % (Auto) Baso % (Auto) Neut # Lymph # [place] # Eos # Baso # PT 15.1 H INR 1.3 APTT 25 D Sodium Potassium Chloride Carbon Dioxide Anion Gap BUN Creatinine Est GFR ( Amer) Est GFR (Non-Af Amer) POC Glucose (mg/dL) 232 H 251 H Random Glucose Calcium Total Bilirubin AST ALT Alkaline Phosphatase Total Protein Albumin Globulin Albumin/Globulin Ratio Assessment & Plan (1) Lymphedema of lower extremity Assessment and Plan: With cellulitis. IV antibiotics as per Dr Prabhakar, and local wound care as per Dr Thompson. No CHF. Status: Acute (2) Pancytopenia Assessment and Plan: As per Dr Solo. Status: Acute (3) Diabetes mellitus type 2 in obese Status: Acute Priority: Medium
[2016-07-23] MEDS: Albuterol 0.042% Inhal Sol (1.25 mg/3 mL) UD INH SCH ×3 (01:30→14:11)
[2016-07-23 01:34] VITALS: RESP 20
[2016-07-23 07:33] LABS: BASO % 0.5 % (0.0-2.0); EOS % 0.1 % (0.0-4.0); HEMATOCRIT 25.6 % (34.0-47.0); LYMPH # 1.1 K/uL (1.0-4.3); LYMPH % 15.4 % (20.0-40.0); MEAN CELL VOLUME 92.9 fL (81.0-99.0); MEAN CORPUSCULAR HEMOGLOBIN 29.4 pg (27.0-31.0); MEAN CORPUSCULAR HGB CONC 31.6 g/dL (33.0-37.0); MONO # 1.5 K/uL (0.0-0.8); MONO % 20.7 % (0.0-10.0); NRBC % 6.1 % (0.0-2.0); PLATELET COUNT 48 K/uL (130-400); RED CELL DISTRIBUTION WIDTH 21.9 % (11.5-14.5); WHITE BLOOD COUNT 7.2 K/uL (4.8-10.8)
[2016-07-23] MEDS: (Novolin R) Insulin Human Regular 100 units/ml vial SC SCH ×5 (08:49→21:39)
[2016-07-23] MEDS: (Lantus) Insulin Glargine, Recombinant SC SCH (09:22)
[2016-07-23] MEDS: Ammonium Lactate 12% Lotion (225 g) EXT SCH ×2 (09:25→17:58)
[2016-07-23] MEDS: Enoxaparin 30 mg Syringe SC SCH (09:25)
[2016-07-23] MEDS: Pantoprazole 40 mg EC Tab PO SCH (09:26)
--- NOTE | 2016-07-23 09:30 | CP.PCM.PN ---
Subjective - Date & Time of Evaluation Date of Evaluation: 07/23/16 Time of Evaluation: 09:30 - Subjective Subjective: 75 year old female was seen and evaluated at resting comfortable at bedside regarding bilateral ulcerations and chronic lower extremity edema. She is AAOx3 , and in no acute distress. Patient states that she cannot lift her legs from the ground into the bed and needs assistance. She denies any pain to her lower extremities. Denies n/v/f/c/sob/cp. Objective - Vital Signs/Intake and Output Vital Signs (last 24 hours): Temp Pulse Resp BP Pulse Ox 98.3 F 66 20 118/66 96 07/23/16 08:49 07/23/16 08:49 07/23/16 08:49 07/23/16 08:49 07/23/16 08:49 Intake and Output: 07/23/16 07/23/16 06:59 18:59 Intake Total 210 Balance 210 - Medications Medications: Current Medications Albuterol Sulfate (Albuterol 0.042% Inhal Tricia (1.25mg/3ml) Ud) 1.25 mg INH RQ6 [facility] Last Admin: 07/23/16 01:30 Dose: Not Given Carvedilol (Coreg) 6.25 mg PO BID [facility] Last Admin: 07/22/16 17:34 Dose: 6.25 mg Enalapril Maleate (Vasotec) 20 mg PO BID [facility] Last Admin: 07/22/16 17:34 Dose: 20 mg Enoxaparin Sodium (Lovenox) 30 mg SC DAILY [facility] Last Admin: 07/22/16 11:15 Dose: 30 mg Ferrous Sulfate (Feosol) 325 mg PO DAILY [facility] Last Admin: 07/22/16 11:14 Dose: 325 mg Insulin Glargine (Lantus) 20 unit SC DAILY [facility] Last Admin: 07/22/16 11:19 Dose: 20 units Insulin Human Regular (Novolin R) 0 unit SC [facility] PRN Reason: Protocol Last Admin: 07/23/16 08:49 Dose: 1 unit Lactic Acid (Lac-Hydrin 12% Lotion (225 G)) 1 gm EXT BID [facility] Last Admin: 07/22/16 18:00 Dose: 1 gm Lorazepam (Ativan) 0.5 mg PO HS [facility] Last Admin: 07/22/16 21:44 Dose: Not Given Pantoprazole Sodium (Protonix Ec Tab) 40 mg PO DAILY [facility] Last Admin: 07/22/16 11:14 Dose: 40 mg Zolpidem Tartrate (Ambien) 5 mg PO HS PRN PRN Reason: Insomnia - Labs Labs: 07/23/16 07:09 07/22/16 11:16 PT 15.1 SECONDS (9.7-12.2) H 07/22/16 11:48 INR 1.3 07/22/16 11:48 APTT 25 SECONDS (21-34) D 07/22/16 11:48 - Constitutional Appears: Non-toxic, No Acute Distress - Extremities Exam Additional comments: Lower extremity focused exam: Vascular: DP and PT pulses non-palpable b/l. CFT is less than 4 seconds to all digits. Lower extremity edema noted R>L. Derm: Chronic circumferential ulcer noted to bilateral lower extremities. No acute sings of infection. No drainage noted. Moderate malodor noted. Nails 1-5 b /l are thickened and elongated. Ortho: Limited ROM due to edema Neuro: Diminished protective sensation and light touch - Neurological Exam Neurological Exam: Alert, Awake, CN II-XII Intact - Psychiatric Exam Psychiatric exam: Normal Affect, Normal Mood Assessment and Plan - Assessment and Plan (Free Text) Assessment: 75 year old female with circumferential chronic ulcer with lymphedema to bilateral lower extremities. Plan: Patient seen and evaluated at bedside Chart, labs, and vitals reviewed Discussed in detail with attending, Dr. Thompson Nails 1-5 b/l were excisionally debrided in thickness and length without incident Lower extremities were dressed with xeroform, ABD pads, Kerlix and OCHOA Awaiting official read of Venous duplex US Will follow up on status of offloading boots for patients lower extremities Podiatry will continue to follow while patient remains in house.
[2016-07-23 09:46] LABS: ABG ALLEN TEST PO; ARTERIAL BLOOD HGB O2 SAT 93.5 % (95.0-98.0); CARBOXYHEMOGLOBIN 2.3 % (0.5-1.5); DRAW SITE RR; HHB 0.4 % (0.0-5.0); METHEMOGLOBIN 3.8 % (0.0-3.0)
[2016-07-23 10:26] LABS: NEUTROPHIL 60 % (50-75); NUCLEATED RED BLOOD CELL 9 % (0-0); REACTIVE LYMPHOCYTES 1 % (0-0); TOTAL CELLS COUNTED 100
--- NOTE | 2016-07-23 15:21 | CARD ---
APPROVED REPORT EXAM: Two-dimensional and M-mode echocardiogram with Doppler and color Doppler. Other Information Quality : AverageRhythm : NSR INDICATION Peripheral Edema Congestive Heart Failure RISK FACTORS Hypertension Obesity Diabetes M-Mode DIMENSIONS RVDd1.99 (2.1-3.2cm)Left Atrium (MM)3.79 (2.5-4.0cm) IVSd1.29 (0.7-1.1cm)Aortic Root2.23 (2.2-3.7cm) LVDd4.53 (4.0-5.6cm)Aortic Cusp Exc.1.17 (1.5-2.0cm) PWd1.02 (0.7-1.1cm)FS (%) 41 % LVDs2.69 (2.0-3.8cm)LVEF (%)71 (>50%) Aortic Valve AoV Peak Gnotxqrc446.0cm/Manpreet Peak GR.9mmHg Mitral Valve MV E Qyymfsbw88.6cm/sMV A Rorcwbbi724.9cm/sE/A ratio0.8 TDI E/Lateral E'0.0E/Medial E'0.0 Tricuspid Valve TR Peak Iepunzvw790cq/sTR Peak Gr.11xxBbQMBO12mgMe <Conclusion> poor window. nomral size la,lv & ra rv. normal lv wall motion & systolic funciton with normal lvef of 65-70%. mild concentric lvh. lv diastolic dysfunciton grade one. grossly normal lloking aortic,mitral,tv & pv. mild tr with normal pulmonary systolic pressures of 20 mm of hg. no pericardial effusion. normal size aortic root.
--- NOTE | 2016-07-23 19:22 | CP.PCM.PN ---
Subjective - Date & Time of Evaluation Date of Evaluation: 07/23/16 Time of Evaluation: 17:20 - Subjective Subjective: Alert and responsive. Patientt has bilateral nonobstructing kidney stones. Hgb 8.1, platlets 61,000. Chronic lymphadema present. Hematology will evaluate. Objective - Vital Signs/Intake and Output Vital Signs (last 24 hours): Temp Pulse Resp BP Pulse Ox 98.0 F 63 20 147/81 97 07/23/16 16:00 07/23/16 16:00 07/23/16 16:00 07/23/16 17:56 07/23/16 16:00 Intake and Output: 07/23/16 07/24/16 18:59 06:59 Intake Total 400 Balance 400 - Medications Medications: Current Medications Albuterol Sulfate (Albuterol 0.042% Inhal Tricia (1.25mg/3ml) Ud) 1.25 mg INH RQ6 [facility] Last Admin: 07/23/16 14:11 Dose: 1.25 mg Carvedilol (Coreg) 6.25 mg PO BID [facility] Last Admin: 07/23/16 17:56 Dose: 6.25 mg Enalapril Maleate (Vasotec) 20 mg PO BID [facility] Last Admin: 07/23/16 17:56 Dose: 20 mg Enoxaparin Sodium (Lovenox) 30 mg SC DAILY [facility] Last Admin: 07/23/16 09:25 Dose: 30 mg Ferrous Sulfate (Feosol) 325 mg PO DAILY [facility] Last Admin: 07/23/16 10:08 Dose: 325 mg Insulin Glargine (Lantus) 20 unit SC DAILY [facility] Last Admin: 07/23/16 09:22 Dose: 20 units Insulin Human Regular (Novolin R) 0 unit SC ACHS [facility] PRN Reason: Protocol Last Admin: 07/23/16 17:18 Dose: 1 unit Lactic Acid (Lac-Hydrin 12% Lotion (225 G)) 1 gm EXT BID [facility] Last Admin: 07/23/16 17:58 Dose: 1 applic Lorazepam (Ativan) 0.5 mg PO HS [facility] Last Admin: 07/22/16 21:44 Dose: Not Given Pantoprazole Sodium (Protonix Ec Tab) 40 mg PO DAILY [facility] Last Admin: 07/23/16 09:26 Dose: 40 mg Zolpidem Tartrate (Ambien) 5 mg PO HS PRN PRN Reason: Insomnia - Labs Labs: 07/23/16 07:09 07/22/16 11:16 PT 15.1 SECONDS (9.7-12.2) H 07/22/16 11:48 INR 1.3 07/22/16 11:48 APTT 25 SECONDS (21-34) D 07/22/16 11:48 - Constitutional Appears: No Acute Distress - Head Exam Head Exam: NORMAL INSPECTION - Eye Exam Eye Exam: Normal appearance Pupil Exam: NORMAL ACCOMODATION - ENT Exam ENT Exam: Normal Exam - Neck Exam Neck Exam: Normal Inspection - Respiratory Exam Respiratory Exam: Decreased Breath Sounds - Cardiovascular Exam Cardiovascular Exam: REGULAR RHYTHM - GI/Abdominal Exam GI & Abdominal Exam: Normal Bowel Sounds - Rectal Exam Rectal Exam: Deferred - Exam External exam: NORMAL EXTERNAL EXAM - Extremities Exam Extremities Exam: Pedal Edema - Neurological Exam Neurological Exam: Oriented x3 - Psychiatric Exam Psychiatric exam: Depressed - Skin Skin Exam: Dry Assessment and Plan (1) Anemia Status: Acute (2) Diabetes mellitus type 2 in obese Status: Acute (3) Degenerative disc disease at L5-S1 level Status: Acute (4) Thrombophlebitis Status: Acute (5) Osteoarthritis Status: Acute (6) Pancytopenia Status: Acute (7) Peripheral edema Status: Acute (8) Thrombocytopenia Status: Acute (9) Hypertension Status: Chronic (10) Kidney stones Status: Acute
[2016-07-23 22:14] LABS: IGG,SERUM 3484 mg/dL (694-1618); IGM,SERUM 84 mg/dL (48-271)
[2016-07-24 00:37] VITALS: O2SAT 96
[2016-07-24] MEDS: Albuterol 0.042% Inhal Sol (1.25 mg/3 mL) UD INH SCH ×3 (01:12→13:50)
[2016-07-24] MEDS: (Novolin R) Insulin Human Regular 100 units/ml vial SC SCH ×2 (07:46→11:40)
--- NOTE | 2016-07-24 08:36 | PN ---
DATE: 07/22/2016 The patient is alert, oriented. She is afebrile with blood pressure ____ , pulse is 66 per minute, r espiration 22, hemoglobin oxygen saturation 95% ____ she says her previous bout of dyspnea is decreas ed. She does not complain of chest pain. PHYSICAL EXAMINATION: HEART: Regular. LUNGS: Diminished breath sounds over the bases. Rhonchi decreased. ABDOMEN: Soft. EXTREMITIES: Bilateral leg edema present. LABORATORY DATA: Her white count is 6300, hemoglobin 8.6 today, platelet count ____ . PT 15.1. PTT 25. INR ____. Serum sodium 141, potassium 4.2, chloride 104, BUN 18, creatinine 0.9. Random gluco se ____ , alkaline phosphatase ____, albumin 3.3. Chest x-ray shows large heart and congestion is seen to be decreasing compared to prior ____. ABGs ar e not yet available. IMPRESSION: Respiratory insufficiency, hypertensive cardiovascular disease, congestive heart failure , bronchitis, diabetes mellitus, bilateral ____ persistent leg edema, arthritis, pancytopenia, and se petey anemia. PLAN: To continue with the current management including bronchodilators and vasodilators as well as hematologic followup. Abundio Silva MD cc: [id number] TT: 07/22/2016 17:23:20 Confirmation # [id number] Dictation # [id number] 07/24/2016 09:13:10
[2016-07-24] MEDS: Ammonium Lactate 12% Lotion (225 g) EXT SCH (10:51)
[2016-07-24] MEDS: Pantoprazole 40 mg EC Tab PO SCH (10:51)
[2016-07-24] MEDS: (Lantus) Insulin Glargine, Recombinant SC SCH (10:53)
--- NOTE | 2016-07-24 13:58 | PN ---
DATE: 07/24/2016 CONTINUATION LABORATORY DATA: Her lab studies show white count of 17,200, hemoglobin 8.1 and platelet count 48,00 0. The patient was seen by a precision millwright for pancytopenia, and the patient was given a blood transf usion. Arterial blood gas studies on FIO2 of 28% showed pH of 7.47, pCO2 of 27, pO2 of 109. Abundio Silva MD cc: [id number] TT: 07/24/2016 13:57:59 Confirmation # [id number] Dictation # [id number] mn
[2016-07-24 14:15] LABS: BASO # 0.1 K/uL (0.0-0.2); BASO % 0.7 % (0.0-2.0); HEMATOCRIT 28.8 % (34.0-47.0); LYMPH # 1.3 K/uL (1.0-4.3); MEAN CELL VOLUME 93.9 fL (81.0-99.0); MEAN CORPUSCULAR HEMOGLOBIN 28.8 pg (27.0-31.0); MEAN CORPUSCULAR HGB CONC 30.6 g/dL (33.0-37.0); MEAN PLATELET VOLUME 9.8 fL (7.2-11.7); MONO # 1.3 K/uL (0.0-0.8); MONO % 15.1 % (0.0-10.0); NRBC % 3.5 % (0.0-2.0); RED CELL DISTRIBUTION WIDTH 21.4 % (11.5-14.5); WHITE BLOOD COUNT 8.4 K/uL (4.8-10.8)
--- NOTE | 2016-07-24 16:28 | VASCLAB ---
PROCEDURE: Lower Extremity Venous Duplex Exam. HISTORY: DVT Severe Lower extremities edema, Bilaterally venous stasis non healing ulceration cellulitis. PRIORS: None. TECHNIQUE: Bilateral common femoral, femoral, popliteal and posterior tibial, peroneal and great saphenous veins were evaluated. Flow was assessed with color Doppler, compressibility, assessment of phasic flow and augmentation response. Report prepared by Fidel Shin, T FINDINGS: RIGHT: 1. Common Femoral Vein: 1.1. Compressibility - Partial: Thrombus - None : Flow - Phasic: Augmentation -Normal 2. Femoral Vein: 2.1. Compressibility - proximal to mid Fully compressible: Thrombus - None : Flow - Phasic: Augmentation -Normal. The distal femoral vein not adequately visualized. 3. Popliteal Vein: 3.1. Compressibility - Fully compressible: Thrombus - None : Flow - Phasic: Augmentation -Normal. 4. Posterior Tibial Vein: 4.1. Compressibility - Not visualized. 5. Peroneal Vein: 5.1. Compressibility - Not visualized. 6. Great Saphenous Vein: 6.1. Compressibility -Not optimally obtained. LEFT: 1. Common Femoral Vein: 1.1. Compressibility - Fully compressible: Thrombus - None: Flow - Phasic: Augmentation -Normal. 2. Femoral Vein: 2.1. Compressibility - Proximal to mid fully compressible: Thrombus - None: Flow - Phasic: Augmentation -Normal. Distal femoral vein not adequately visualized. 3. Popliteal Vein: 3.1. Compressibility - Fully compressible: Thrombus - None : Flow - Phasic: Augmentation -Normal. 4. Posterior Tibial Vein: 4.1. Compressibility - Not visualized. 5. Peroneal Vein: 5.1. Compressibility - Not visualized. 6. Great Saphenous Vein: 6.1. Compressibility - Not optimally obtained. OTHER FINDINGS: Right: None significant. Left: Soft tissue edema. IMPRESSION: Right: The distal femoral, gastrocnemius, posterior tibial and peroneal veins were not evaluated due to severe edema. No evidence of acute deep or superficial vein thrombosis for those veins clearly visualized veins in the right lower extremity. Possible chronic thrombus in the common femoral vein. Left: The distal femoral, gastrocnemius, posterior tibial and peroneal veins were not evaluated due to severe edema. No evidence of deep or superficial vein thrombosis for those veins clearly visualized veins in the left lower extremity. Extremely limited study.
[2016-07-24 17:00] VITALS: BP 138/78; PULSE 72; TEMP 97.9
--- NOTE | 2016-07-24 18:05 | CP.PCM.PN ---
Subjective - Date & Time of Evaluation Date of Evaluation: 07/24/16 Time of Evaluation: 11:00 - Subjective Subjective: Alert, oriented, morbidly obese, has difficulty with walking. Objective - Vital Signs/Intake and Output Vital Signs (last 24 hours): Temp Pulse Resp BP Pulse Ox 97.9 F 72 20 138/78 96 07/24/16 16:00 07/24/16 16:00 07/24/16 16:00 07/24/16 16:00 07/24/16 16:00 Intake and Output: 07/24/16 07/24/16 06:59 18:59 Intake Total 300 360 Output Total 1 Balance 300 359 - Medications Medications: Current Medications Albuterol Sulfate (Albuterol 0.042% Inhal Tricia (1.25mg/3ml) Ud) 1.25 mg INH RQ6 [facility] Last Admin: 07/24/16 13:50 Dose: 1.25 mg Carvedilol (Coreg) 6.25 mg PO BID [facility] Last Admin: 07/24/16 10:51 Dose: 6.25 mg Enalapril Maleate (Vasotec) 20 mg PO BID [facility] Last Admin: 07/24/16 10:51 Dose: 20 mg Enoxaparin Sodium (Lovenox) 30 mg SC DAILY [facility] Last Admin: 07/23/16 09:25 Dose: 30 mg Ferrous Sulfate (Feosol) 325 mg PO DAILY [facility] Last Admin: 07/24/16 10:51 Dose: 325 mg Insulin Glargine (Lantus) 20 unit SC DAILY [facility] Last Admin: 07/24/16 10:53 Dose: Not Given Insulin Human Regular (Novolin R) 0 unit SC [facility] PRN Reason: Protocol Last Admin: 07/24/16 11:40 Dose: Not Given Lactic Acid (Lac-Hydrin 12% Lotion (225 G)) 1 gm EXT BID [facility] Last Admin: 07/24/16 10:51 Dose: 1 applic Lorazepam (Ativan) 0.5 mg PO HS [facility] Last Admin: 07/23/16 21:42 Dose: Not Given Pantoprazole Sodium (Protonix Ec Tab) 40 mg PO DAILY [facility] Last Admin: 07/24/16 10:51 Dose: 40 mg Zolpidem Tartrate (Ambien) 5 mg PO HS PRN PRN Reason: Insomnia - Labs Labs: 07/24/16 14:05 03/25/17 11:16 PT 15.1 SECONDS (9.7-12.2) H 07/22/16 11:48 INR 1.3 07/22/16 11:48 APTT 25 SECONDS (21-34) D 07/22/16 11:48 Assessment and Plan - Assessment and Plan (Free Text) Assessment: Patient is seen and examined. Alert, awake, no acute distress. Hemoglobin 8.6 today, cleared by DR Hay, to follow up in her office next week. Discharge plan to [facility] today as the family request. D/W DR Foster, will do under DR Leora Ferreira. Will hold coumadin for now due to low platelet.
--- NOTE | 2016-07-25 08:32 | PN ---
DATE: 07/24/2016 PHYSICAL EXAMINATION: GENERAL: The patient is alert, oriented. The patient is not in distress, does not complain of chest pain and her dyspnea is easier. VITAL SIGNS: Afebrile. Blood pressure 132/72, pulse 66 per minute, respiration 20, hemoglobin oxyge n saturation 96%. HEART: Regular. LUNGS: Diminished breath sounds over lung bases, rhonchi decreasing. ABDOMEN: Soft. EXTREMITIES: Legs, bilateral leg edema present. Her white count LABORATORY DATA: Her lab studies show white count of 17,200, hemoglobin 8.1 and platelet count 48,00 0. The patient was seen by a mayonnaise mixer for pancytopenia, and the patient was given a blood transf usion. Arterial blood gas studies on FIO2 of 28% showed pH of 7.47, pCO2 of 27, pO2 of 109. Abundio Silva MD cc: [id number] TT: 07/24/2016 13:58:10 Confirmation # [id number] Dictation # [id number] nd 07/25/2016 07:30:54
--- NOTE | 2016-07-25 09:58 | CP.PCM.DIS ---
Provider - Provider Date of Admission: 07/19/16 18:35 Attending physician: Junito Foster MD Time Spent in preparation of Discharge (in minutes): 26 Diagnosis - Discharge Diagnosis (1) Anemia Status: Acute Priority: High (2) Diabetes mellitus type 2 in obese Status: Acute Priority: Medium (3) Degenerative disc disease at L5-S1 level Status: Acute Priority: Medium (4) Thrombophlebitis Status: Acute Priority: Medium (5) Osteoarthritis Status: Acute Priority: Medium (6) Pancytopenia Status: Acute (7) Peripheral edema Status: Acute (8) Thrombocytopenia Status: Acute (9) Hypertension Status: Chronic (10) Kidney stones Status: Acute Hospital Course - Lab Results Lab Results: Micro Results 07/22/16 18:18 Leg - Left Gram Stain - Final 07/22/16 18:18 Leg - Left Wound Culture - Final Citrobacter Diversus Bacillus Species Most Recent Lab Values WBC 8.4 K/uL (4.8-10.8) 07/24/16 14:05 RBC 3.06 Mil/uL (3.80-5.20) L 07/24/16 14:05 Hgb 8.8 g/dL (11.0-16.0) L 07/24/16 14:05 Hct 28.8 % (34.0-47.0) L 07/24/16 14:05 MCV 93.9 fL (81.0-99.0) 07/24/16 14:05 MCH 28.8 pg (27.0-31.0) 07/24/16 14:05 MCHC 30.6 g/dL (33.0-37.0) L 07/24/16 14:05 RDW 21.4 % (11.5-14.5) H 07/24/16 14:05 Plt Count 41 K/uL (130-400) L 07/24/16 14:05 MPV 9.8 fL (7.2-11.7) 07/24/16 14:05 Neut % (Auto) 69.2 % (50.0-75.0) 07/24/16 14:05 Lymph % (Auto) 15.0 % (20.0-40.0) L 07/24/16 14:05 Bandera % (Auto) 15.1 % (0.0-10.0) H 07/24/16 14:05 Eos % (Auto) 0.0 % (0.0-4.0) 07/24/16 14:05 Baso % (Auto) 0.7 % (0.0-2.0) 07/24/16 14:05 Neut # 5.8 K/uL (1.8-7.0) 07/24/16 14:05 Lymph # 1.3 K/uL (1.0-4.3) 07/24/16 14:05 Bandera # 1.3 K/uL (0.0-0.8) H 07/24/16 14:05 Eos # 0.0 K/uL (0.0-0.7) 07/24/16 14:05 Baso # 0.1 K/uL (0.0-0.2) 07/24/16 14:05 Neutrophils % (Manual) 60 % (50-75) 07/23/16 07:09 Lymphocytes % (Manual) 17 % (20-40) L 07/23/16 07:09 Reactive Lymphs % 1 % (0-0) H 07/23/16 07:09 Monocytes % (Manual) 22 % (0-10) H 07/23/16 07:09 Nucleated RBC % 9 % (0-0) H 07/23/16 07:09 Differential Comment 07/20/16 07:48 Platelet Estimate Decreased (NORMAL) L 07/23/16 07:09 Anisocytosis (manual) Moderate 07/23/16 07:09 Target Cells Slight 07/23/16 07:09 Smear Path Review 07/20/16 07:48 ESR 136 mm/hr (0-20) H 07/20/16 17:03 Retic Count 1.4 % (0.5-1.5) D 07/20/16 17:03 PT 15.1 SECONDS (9.7-12.2) H 07/22/16 11:48 INR 1.3 07/22/16 11:48 APTT 25 SECONDS (21-34) D 07/22/16 11:48 Puncture Site Rr 07/23/16 09:44 pCO2 36 mm/Hg (35-45) 07/23/16 09:44 pO2 109 mm/Hg (80-100) H 07/23/16 09:44 HCO3 26.8 mmol/L (21-28) 07/23/16 09:44 ABG pH 7.47 (7.35-7.45) H 07/23/16 09:44 ABG Total CO2 27.3 mmol/L (22-28) 07/23/16 09:44 ABG O2 Saturation 99.6 % (95-98) H 07/23/16 09:44 ABG Base Excess 2.5 mmol/L (-2.0-3.0) 07/23/16 09:44 ABG Hemoglobin 8.6 g/dL (11.7-17.4) L 07/23/16 09:44 ABG Carboxyhemoglobin 2.3 % (0.5-1.5) H 07/23/16 09:44 POC ABG HHb (Measured) 0.4 % (0.0-5.0) 07/23/16 09:44 ABG Methemoglobin 3.8 % (0.0-3.0) H 07/23/16 09:44 Inderjit Test Po 07/23/16 09:44 A-a O2 Difference 46.0 mm/Hg 07/23/16 09:44 Respiratory Index 0.4 07/23/16 09:44 Hgb O2 Saturation 93.5 % (95.0-98.0) L 07/23/16 09:44 Liter Flow 2.0 07/23/16 09:44 FiO2 28.0 % 07/23/16 09:44 Sodium 141 mmol/L (132-148) 07/22/16 11:16 Potassium 4.2 mmol/L (3.6-5.2) 07/22/16 11:16 Chloride 104 mmol/L (98-107) 07/22/16 11:16 Carbon Dioxide 22 mmol/L (22-30) 07/22/16 11:16 Anion Gap 20 (10-20) 07/22/16 11:16 BUN 18 mg/dL (7-17) H 07/22/16 11:16 Creatinine 0.9 MG/DL (0.7-1.2) 07/22/16 11:16 Est GFR ( Amer) > 60 07/22/16 11:16 Est GFR (Non-Af Amer) > 60 07/22/16 11:16 POC Glucose (mg/dL) 165 mg/dL (65-110) H 07/24/16 16:43 Random Glucose 170 mg/dL (65-105) H 07/22/16 11:16 Calcium 8.2 mg/dl (8.6-10.4) L 07/22/16 11:16 Total Bilirubin 1.8 mg/dL (0.2-1.3) H 07/22/16 11:16 AST 35 U/L (14-36) 07/23/16 07:09 ALT 17 U/L (9-52) 07/22/16 11:16 Alkaline Phosphatase 225 U/L (38-126) H D 07/22/16 11:16 Lactate Dehydrogenase 998 U/L (313-618) H 07/21/16 07:47 Total Protein 8.6 g/dL (6.3-8.3) H 07/22/16 11:16 Albumin 3.3 g/dL (3.5-5.0) L 07/22/16 11:16 Globulin 5.4 gm/dL (2.2-3.9) H 07/22/16 11:16 Albumin/Globulin Ratio 0.6 (1.0-2.1) L 07/22/16 11:16 Vitamin B12 > 1000 pg/mL (239-931) H 07/20/16 17:03 Thyroxine (T4) 11.4 ug/dL (5.5-11.0) H 07/20/16 17:03 Total T3 1.19 nmol/L (1.49-2.60) L 07/20/16 17:03 TSH 3rd Generation 2.30 mIU/L (0.46-4.68) 07/20/16 17:03 IgG 3484 mg/dL (694-1618) H 07/20/16 17:03 IgA 1313 mg/dL (81-463) H 07/20/16 17:03 IgM 84 mg/dL (48-271) 07/20/16 17:03 Serum Immunofixation See note (()) 07/20/16 17:03 TRACY 6 Profile Negative (NEGATIVE) 07/23/16 07:09 Anti-Staphylolysin O Positive (NEGATIVE) H 07/23/16 07:09 Anti-Streptolysin Titr =>800 iu/ml (NEGATIVE) H 07/23/16 07:09 Blood Type O NEGATIVE 07/19/16 18:00 Antibody Screen Negative 07/19/16 18:00 Discharge Exam - Head Exam Head Exam: NORMAL INSPECTION - Eye Exam Eye Exam: Normal appearance, Periorbital swelling Pupil Exam: NORMAL ACCOMODATION - ENT Exam ENT Exam: Normal Exam - Neck Exam Neck exam: Normal Inspection - Respiratory Exam Respiratory Exam: Decreased Breath Sounds - Cardiovascular Exam Cardiovascular Exam: REGULAR RHYTHM - GI/Abdominal Exam GI & Abdominal Exam: Normal Bowel Sounds - Rectal Exam Rectal Exam: Deferred - Exam External exam: NORMAL EXTERNAL EXAM - Extremities Exam Extremities exam: tenderness - Back Exam Back exam: NORMAL INSPECTION - Neurological Exam Neurological exam: Oriented x3 - Psychiatric Exam Psychiatric exam: Depressed - Skin Skin Exam: Dry Discharge Plan - Discharge Medications Prescriptions: Insulin Glargine, Recombina [Lantus] 20 unit SC HS #5 unit - Follow Up Plan Condition: STABLE Disposition: REHAB FACILITY/REHAB UNIT Instructions: Insulin Glargine (By injection), Anemia (DC), Thrombocytopenia ( DC) Additional Instructions: Follow up with your PMD for further evaluation Referrals: Junito Foster MD [Staff Provider] - Olivia Solo MD [Staff Provider] - Collins Thompson DPM [Staff Provider] -
[2016-07-25 15:37] LABS: CCP IGG <16 Units (<20)
== END 2016-07-24 18:20 | DRG 812 ==
LOC: C.ER 13:33 → C.9E 18:35 → C.3T 19:53
PROVIDERS: ADMIT Internal Medicine; ATTEND Internal Medicine
DX: D53.9 Nutritional anemia, unspecified (principal); D61.818 Other pancytopenia; E11.622 Type 2 diabetes mellitus with other skin ulcer; I50.9 Heart failure, unspecified; I11.0 Hypertensive heart disease with heart failure; L97.919 Non-pressure chronic ulcer of unspecified part of right lower leg with unspecified severity; L97.929 Non-pressure chronic ulcer of unspecified part of left lower leg with unspecified severity; I80.9 Phlebitis and thrombophlebitis of unspecified site; E66.01 Morbid (severe) obesity due to excess calories; M51.37 Other intervertebral disc degeneration, lumbosacral region; I87.8 Other specified disorders of veins; I25.10 Atherosclerotic heart disease of native coronary artery without angina pectoris; I89.0 Lymphedema, not elsewhere classified; N20.0 Calculus of kidney; M19.90 Unspecified osteoarthritis, unspecified site; J40 Bronchitis, not specified as acute or chronic; Z79.4 Long term (current) use of insulin; Z87.01 Personal history of pneumonia (recurrent)

== ENCOUNTER 2016-09-06 00:18 | Inpatient (IN) | payer MEDICARE, BC ==
[2016-09-06 00:18] VITALS: BMI 47.0
--- NOTE | 2016-09-06 00:44 | C.PDOC ---
History Of Present Illness A 75 year old female presents to the ER for abnormal labs. Patient has a Hb count of 5.8. patient notes having a recent admission to the ER. Patient denies blood in stool, hematemesis, fever, chills, nausea, vomiting, hematuria, or any other complaints. Patient is currently being looked for pancytopenia. Time Seen by Provider: 09/06/16 00:21 Chief Complaint (Nursing): Abnormal Labs History Per: Patient History/Exam Limitations: no limitations Onset/Duration Of Symptoms: Days Current Symptoms Are (Timing): Still Present Severity: Mild Additional History Per: Patient Past Medical History Reviewed: Historical Data, Nursing Documentation, Vital Signs Vital Signs: Last Vital Signs Temp 98.7 F 09/06/16 00:20 Pulse 96 H 09/06/16 00:20 Resp 18 09/06/16 00:20 BP 138/68 09/06/16 00:20 Pulse Ox 99 09/06/16 01:24 - Medical History PMH: Anemia, HTN, Pneumonia Denies: Chronic Kidney Disease Surgical History: Cholecystectomy (in 2010) - [facility] Procedures CENTRAL VENOUS CATHETER PLACEMENT WITH GUIDANCE (02/16/14) PACKED CELL TRANSFUSION (02/16/14) VACCINATION NEC (02/16/14) Family History: States: Unknown Family Hx - Social History Hx Tobacco Use: No Hx Alcohol Use: No Hx Substance Use: No - Immunization History Hx Tetanus Toxoid Vaccination: No Hx Influenza Vaccination: Yes Hx Pneumococcal Vaccination: Yes Review Of Systems Except As Marked, All Systems Reviewed And Found Negative. Constitutional: Positive for: Other (Abnormal blood labs, Hb 5.8). Negative for : Fever, Chills Gastrointestinal: Negative for: Nausea, Vomiting, Hematochezia, Hematemesis Genitourinary: Negative for: Hematuria Physical Exam - Physical Exam Appears: Non-toxic, No Acute Distress Skin: Warm, Dry Head: Atraumatic, Normacephalic Eye(s): bilateral: Normal Inspection, PERRL, EOMI Oral Mucosa: Moist Cardiovascular: Rhythm Regular, No Murmur Respiratory: Normal Breath Sounds, No Rales, No Rhonchi, No Wheezing Extremity: Swelling (Elephantiasis of the bilateral lower extremities) Neurological/Psych: Oriented x3, Normal Speech, Normal Cognition, No Other (No focal deficit) ED Course And Treatment - Laboratory Results Result Diagrams: 09/06/16 00:45 09/06/16 00:45 O2 Sat by Pulse Oximetry: 99 (RA) Pulse Ox Interpretation: Normal Medical Decision Making Medical Decision Making: Impression: 75 y/o female in with abnormal labs of Hb 5.8 Plans: -Blood labs -Reassess and disposition Pt refuses rectal exam denying blood in stool. Patient is resting comfortably, and is in no acute distress. transfusion ordered. dr moody accepts. pt has had w/u for anemia/thrombocytopenia of unknown etiology, pt reported refused bone marrow biopsy in past. Disposition - Disposition Disposition: HOSPITALIZED Disposition Time: 01:37 Condition: STABLE - Clinical Impression Clinical Impression: Anemia, Thrombocytopenia - Scribe Statement The provider has reviewed the documentation as recorded by the Scribe Trista diallo All medical record entries made by the Scribe were at my direction and personally dictated by me. I have reviewed the chart and agree that the record accurately reflects my personal performance of the history, physical exam, medical decision making, and the department course for this patient. I have also personally directed, reviewed, and agree with the discharge instructions and disposition. Decision To Admit - Pt Status Changed To: Hospital Disposition Of: Inpatient - Admit Certification Admit to Inpatient:: After my assessment, the patient will require hospitalization for at least two midnights. This is because of the severity of symptoms shown, intensity of services needed, and/or the medical risk in this patient being treated as an outpatient. - InPatient: Physician Admission Certification: I certify that this patient requires 2 or more midnights of care for the following reason:: pt with marked anemia, needs hem eval - . Bed Request Type: Regular Admitting Physician: Junito Moody Patient Diagnosis: Anemia, Thrombocytopenia
[2016-09-06 00:49] LABS: BASO % 0.5 % (0.0-2.0); HEMATOCRIT 17.5 % (34.0-47.0); LYMPH # 1.2 K/uL (1.0-4.3); LYMPH % 21.5 % (20.0-40.0); MEAN CELL VOLUME 95.2 fL (81.0-99.0); MEAN CORPUSCULAR HEMOGLOBIN 28.8 pg (27.0-31.0); MEAN CORPUSCULAR HGB CONC 30.3 g/dL (33.0-37.0); MEAN PLATELET VOLUME 9.8 fL (7.2-11.7); MONO # 0.9 K/uL (0.0-0.8); NRBC % 1.6 % (0.0-2.0); RED CELL DISTRIBUTION WIDTH 25.5 % (11.5-14.5); WHITE BLOOD COUNT 5.6 K/uL (4.8-10.8)
[2016-09-06 00:58] LABS: CHLORIDE 109 mmol/L (98-107); PLATELET COUNT 24 K/uL (130-400); SODIUM 137 mmol/L (132-148)
[2016-09-06 01:00] LABS: GFR AFRICAN-AMERICAN > 60
[2016-09-06 01:01] LABS: ALB/GLOB RATIO 0.6 (1.0-2.1); ALKALINE PHOSPHATASE 124 U/L (38-126); ALT/SGPT 10 U/L (9-52); AST/SGOT 36 U/L (14-36); BILIRUBIN,TOTAL 1.2 mg/dL (0.2-1.3); BLOOD UREA NITROGEN 27 mg/dL (7-17); CARBON DIOXIDE 21 mmol/L (22-30); GLUCOSE,RANDOM 129 mg/dL (65-105); TOTAL PROTEIN 8.9 g/dL (6.3-8.3)
[2016-09-06 01:02] LABS: CALCIUM 7.8 mg/dl (8.6-10.4)
[2016-09-06 01:30] LABS: POTASSIUM 5.2 mmol/L (3.6-5.2)
[2016-09-06 01:42] LABS: NEUTROPHIL 59 % (50-75); REACTIVE LYMPHOCYTES 4 % (0-0); TOTAL CELLS COUNTED 100
[2016-09-06] MEDS ORDERED: Pneumococcal 23-Valent Vaccine IM ONE (08:30)
[2016-09-06] MEDS ORDERED: CICLOPIROX TP SCH ×2 (10:00)
[2016-09-06] MEDS ORDERED: [UNRECOGNIZED DRUG - OTHER] TP SCH ×2 (10:00)
[2016-09-06] MEDS ORDERED: DEXTROMETHORPHAN PO SCH (10:00)
[2016-09-06] MEDS ORDERED: GUAIFENESIN PO SCH (10:00)
--- NOTE | 2016-09-06 10:54 | RAD ---
PROCEDURE: CHEST RADIOGRAPH, 1 VIEW HISTORY: admission COMPARISON: Comparison is made to the previous study dated 07/22/2016 FINDINGS: LUNGS: Moderate pulmonary vascular congestion is noted. PLEURA: This small amount of fluid seen in the right fissure. Blunting of both costophrenic angle. CARDIOVASCULAR: Cardiomegaly is again noted. OSSEOUS STRUCTURES: No significant abnormalities. VISUALIZED UPPER ABDOMEN: Normal. OTHER FINDINGS: None. IMPRESSION: Cardiomegaly and moderate pulmonary vascular congestion. Small bilateral pleural effusions.
[2016-09-06] MEDS: Pantoprazole 40 mg EC Tab PO SCH (11:02)
[2016-09-06] MEDS: Ammonium Lactate 12% Lotion (225 g) TOP SCH (11:03)
[2016-09-06] MEDS: guaiFENesin 600 mg ER Tab PO SCH (17:34)
[2016-09-06 20:34] LABS: BASO % 0.3 % (0.0-2.0); EOS % 0.1 % (0.0-4.0); HEMATOCRIT 21.6 % (34.0-47.0); LYMPH % 22.9 % (20.0-40.0); MEAN CORPUSCULAR HEMOGLOBIN 29.9 pg (27.0-31.0); MEAN CORPUSCULAR HGB CONC 32.5 g/dL (33.0-37.0); MEAN PLATELET VOLUME 10.7 fL (7.2-11.7); MONO # 0.9 K/uL (0.0-0.8); MONO % 19.3 % (0.0-10.0); NRBC % 2.6 % (0.0-2.0); RED CELL DISTRIBUTION WIDTH 20.9 % (11.5-14.5); WHITE BLOOD COUNT 4.6 K/uL (4.8-10.8)
[2016-09-06 20:37] LABS: MEAN CELL VOLUME 92.1 fL (81.0-99.0)
[2016-09-06] MEDS ORDERED: (Lantus) Insulin Glargine, Recombinant SC SCH (22:00)
--- NOTE | 2016-09-06 22:54 | CP.PCM.HP ---
History of Present Illness - History of Present Illness History of Present Illness: 75 year old female who developed severe fatigue and dizziness was taken to the [facility] ER for evaluation. The patient has been at the [facility] for the past 8 weeks. Lab studies reveal a Hgb of 5.8. Admission was advised for immediate transfusion and evaluation. Present on Admission - Present on Admission Any Indicators Present on Admission: No History of DVT/PE: Yes History of Uncontrolled Diabetes: No Urinary Catheter: No Decubitus Ulcer Present: No History Surgical Site Infection Following: None Review of Systems - Constitutional Constitutional: Headache - EENT Eyes: Blurred Vision Ears: Dizziness Nose/Mouth/Throat: Post Nasal Drip - Cardiovascular Cardiovascular: Dyspnea on Exertion - Respiratory Respiratory: Dyspnea on Exertion - Gastrointestinal Gastrointestinal: Constipation - Genitourinary Genitourinary: Urinary Frequency - Reproductive: Female Reproductive:Female: Post Menopausal - Menstruation Menstruation: Post Menopausal - Musculoskeletal Musculoskeletal: Arthralgias - Integumentary Integumentary: Dry Skin - Neurological Neurological: Dizziness - Psychiatric Psychiatric: Depression - Endocrine Endocrine: Fatigue Past Patient History - Infectious Disease Hx of Infectious Diseases: None - Tetanus Immunizations Tetanus Immunization: Unknown, Up to Date - Past Medical History & Family History Past Medical History?: Yes - Past Social History Smoking Status: Never Smoked Chewing Tobacco Use: No Cigar Use: No - CARDIAC Hx Cardiac Disorders: Yes Hx Hypertension: Yes - PULMONARY Hx Respiratory Disorders: Yes Hx Pneumonia: Yes - NEUROLOGICAL Hx Neurological Disorder: No - HEENT Hx HEENT Problems: No - RENAL Hx Chronic Kidney Disease: No - ENDOCRINE/METABOLIC Hx Endocrine Disorders: Yes Hx Diabetes Mellitus Type 2: Yes - HEMATOLOGICAL/ONCOLOGICAL Hx Blood Disorders: Yes Hx Anemia: Yes Hx Blood Transfusions: Yes - INTEGUMENTARY Hx Dermatological Problems: No Other/Comment: BLE w/ cauliflowered skin - MUSCULOSKELETAL/RHEUMATOLOGICAL Hx Falls: Yes - GASTROINTESTINAL Hx Gastrointestinal Disorders: No - GENITOURINARY/GYNECOLOGICAL Hx Genitourinary Disorders: No - PSYCHIATRIC Hx Substance Use: No - SURGICAL HISTORY Hx Surgeries: Yes Hx Cholecystectomy: Yes (in 2010) - ANESTHESIA Hx Anesthesia: Yes Hx Anesthesia Reactions: No Hx Malignant Hyperthermia: No Has any member of the family had a problem w/ anesthesia?: No Meds Allergies/Adverse Reactions: Allergies Allergy/AdvReac Type Severity Reaction Status Date / Time Gadolinium-Containing Allergy ITCHING Verified 07/23/16 20:50 Contrast Medi Physical Exam - Constitutional Appears: No Acute Distress - Head Exam Head Exam: NORMAL INSPECTION - Eye Exam Eye Exam: Normal appearance Pupil Exam: NORMAL ACCOMODATION - ENT Exam ENT Exam: Normal Oropharynx - Neck Exam Neck exam: Positive for: Normal Inspection - Respiratory Exam Respiratory Exam: NORMAL BREATHING PATTERN - Cardiovascular Exam Cardiovascular Exam: REGULAR RHYTHM - GI/Abdominal Exam GI & Abdominal Exam: Hyperactive Bowel Sounds - Rectal Exam Rectal Exam: Deferred - Exam External exam: NORMAL EXTERNAL EXAM - Extremities Exam Extremities exam: Positive for: calf tenderness - Back Exam Back exam: NORMAL INSPECTION - Neurological Exam Neurological exam: Oriented x3 - Psychiatric Exam Psychiatric exam: Depressed Results - Vital Signs Recent Vital Signs: Last Vital Signs Temp 98.7 F 09/06/16 18:00 Pulse 86 09/06/16 18:00 Resp 20 09/06/16 18:00 BP 146/71 09/06/16 18:00 Pulse Ox 96 09/06/16 18:00 - Labs Result Diagrams: 09/06/16 20:07 09/06/16 00:45 Labs: Laboratory Results - last 24 hr 09/06/16 09/06/16 09/06/16 07:29 11:37 16:09 WBC RBC Hgb Hct MCV MCH MCHC RDW Plt Count MPV Neut % (Auto) Lymph % (Auto) [place] % (Auto) Eos % (Auto) Baso % (Auto) Neut # Lymph # [place] # Eos # Baso # POC Glucose (mg/dL) 116 H 115 H 156 H 09/06/16 09/06/16 20:07 21:52 WBC 4.6 L RBC 2.35 L Hgb 7.0 L Hct 21.6 L MCV 92.1 D MCH 29.9 MCHC 32.5 L RDW 20.9 H Plt Count 20 L* MPV 10.7 Neut % (Auto) 57.4 Lymph % (Auto) 22.9 [place] % (Auto) 19.3 H Eos % (Auto) 0.1 Baso % (Auto) 0.3 Neut # 2.6 Lymph # 1.0 [place] # 0.9 H Eos # 0.0 Baso # 0.0 POC Glucose (mg/dL) 145 H Assessment & Plan (1) Anemia Status: Acute (2) Thrombocytopenia Status: Acute (3) Degenerative disc disease at L5-S1 level Status: Acute Priority: Medium
[2016-09-07] MEDS ORDERED: Dextrose 50% SYRINGE Inj (50 ml) ONE (07:42)
[2016-09-07] MEDS ORDERED: Dextrose 50% SYRINGE Inj (50 ml) IV STA (08:03)
[2016-09-07 08:51] LABS: FREE T4 1.82 ng/dL (0.78-2.19)
[2016-09-07 09:01] LABS: THYROID STIMULATING HORMONE 1.99 mIU/L (0.46-4.68)
[2016-09-07] MEDS: guaiFENesin 600 mg ER Tab PO SCH ×2 (09:34→17:37)
[2016-09-07] MEDS: Pantoprazole 40 mg EC Tab PO SCH (09:34)
[2016-09-07] MEDS: Ammonium Lactate 12% Lotion (225 g) TOP SCH (09:37)
--- NOTE | 2016-09-07 09:41 | CP.PCM.PN ---
Subjective - Date & Time of Evaluation Date of Evaluation: 09/06/16 Time of Evaluation: 23:10 - Subjective Subjective: Latest Hct 21, platlets 20,000. Patient in no acute distress. Will give another unit of packed cells. Get urgent hematology consult. Objective - Vital Signs/Intake and Output Vital Signs (last 24 hours): Temp Pulse Resp BP Pulse Ox 97.9 F 94 H 20 156/76 H 96 09/07/16 04:58 09/07/16 04:58 09/07/16 04:58 09/07/16 04:58 09/07/16 00:00 Intake and Output: 09/07/16 09/07/16 06:59 18:59 Intake Total 333 Balance 333 - Medications Medications: Current Medications Enalapril Maleate (Vasotec) 20 mg PO BID [facility] Last Admin: 09/06/16 17:33 Dose: 20 mg Epoetin Arturo (Procrit) 10,000 unit SC [facility] Ferrous Sulfate (Feosol) 325 mg PO DAILY [facility] Last Admin: 09/06/16 11:02 Dose: 325 mg Guaifenesin (Mucinex La) 600 mg PO BID [facility] Last Admin: 09/06/16 17:34 Dose: 600 mg Insulin Glargine (Lantus) 20 unit SC HS [facility] Last Admin: 09/06/16 22:06 Dose: 20 units Lactic Acid (Lac-Hydrin 12% Lotion (225 G)) 0 gm TOP DAILY [facility] Last Admin: 09/06/16 11:03 Dose: 1 applic Pantoprazole Sodium (Protonix Ec Tab) 40 mg PO DAILY [facility] Last Admin: 09/06/16 11:02 Dose: 40 mg Zolpidem Tartrate (Ambien) 5 mg PO HS [facility] Last Admin: 09/06/16 22:06 Dose: 5 mg - Labs Labs: 09/06/16 20:07 PT 23.2 SECONDS (9.7-12.2) H 09/06/16 00:45 INR 2.0 09/06/16 00:45 APTT 33 SECONDS (21-34) 09/06/16 00:45 - Head Exam Head Exam: NORMAL INSPECTION - Eye Exam Eye Exam: Normal appearance Assessment and Plan (1) Anemia Status: Acute (2) Thrombocytopenia Status: Acute (3) Degenerative disc disease at L5-S1 level Status: Acute (4) Pleural effusion Status: Acute (5) Lymphedema of lower extremity Status: Acute (6) Osteoarthritis Status: Acute (7) Thrombophlebitis Status: Acute
[2016-09-07] MEDS: EPOETIN ALFA 10,000 UNIT/ML ML SC SCH (09:51)
[2016-09-07 11:36] LABS: BASO % 0.6 % (0.0-2.0); HEMATOCRIT 27.8 % (34.0-47.0); LYMPH # 1.1 K/uL (1.0-4.3); LYMPH % 21.6 % (20.0-40.0); MEAN CELL VOLUME 92.5 fL (81.0-99.0); MEAN CORPUSCULAR HEMOGLOBIN 29.4 pg (27.0-31.0); MEAN CORPUSCULAR HGB CONC 31.8 g/dL (33.0-37.0); MEAN PLATELET VOLUME 9.5 fL (7.2-11.7); MONO # 0.7 K/uL (0.0-0.8); MONO % 13.5 % (0.0-10.0); NRBC % 3.9 % (0.0-2.0); RED CELL DISTRIBUTION WIDTH 20.5 % (11.5-14.5); WHITE BLOOD COUNT 4.9 K/uL (4.8-10.8)
[2016-09-07 11:48] LABS: CHLORIDE 107 mmol/L (98-107); SODIUM 136 mmol/L (132-148)
[2016-09-07 11:51] LABS: GFR AFRICAN-AMERICAN > 60
[2016-09-07 11:52] LABS: BLOOD UREA NITROGEN 18 mg/dL (7-17); CALCIUM 8.1 mg/dl (8.6-10.4); CARBON DIOXIDE 24 mmol/L (22-30); GLUCOSE,RANDOM 100 mg/dL (65-105)
--- NOTE | 2016-09-07 14:18 | CON ---
DATE: 09/07/2016 Thank you for asking me to see this 75-year-old lady in consultation. I have interviewed the patient and reviewed the chart in detail and examined her and checked her lab data. I examined all the test s available and have written a detailed note on the consult sheet. Please see the details on the con sult sheet. I have placed orders in the computer and discussed her condition. Abundio Silva MD cc: [id number] TT: 09/07/2016 14:18:33 Confirmation # [id number] Dictation # [id number]
--- NOTE | 2016-09-07 18:12 | CP.PCM.CON ---
History of Present Illness - History of Present Illness History of Present Illness: 75 yo woman with one of several admissions for severe anemia and pancytopenia. Patient's thrombocytopenia has gotten worse, no active bleeding is reported by the nurses. Work up in the past has shown normal ferritin, B12, SPEP, with slightly elevated LDH. 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 Will repeat LDH, send flow cytometry to r/o leukemia. Past Patient History - Infectious Disease Hx of Infectious Diseases: None - Tetanus Immunizations Tetanus Immunization: Unknown, Up to Date - Past Medical History & Family History Past Medical History?: Yes - Past Social History Smoking Status: Never Smoked Chewing Tobacco Use: No Cigar Use: No - CARDIAC Hx Cardiac Disorders: Yes Hx Hypertension: Yes - PULMONARY Hx Respiratory Disorders: Yes Hx Pneumonia: Yes - NEUROLOGICAL Hx Neurological Disorder: No - HEENT Hx HEENT Problems: No - RENAL Hx Chronic Kidney Disease: No - ENDOCRINE/METABOLIC Hx Diabetes Mellitus Type 2: Yes - HEMATOLOGICAL/ONCOLOGICAL Hx Blood Disorders: Yes Hx Anemia: Yes Hx Blood Transfusions: Yes - INTEGUMENTARY Hx Dermatological Problems: No Other/Comment: BLE w/ cauliflowered skin - MUSCULOSKELETAL/RHEUMATOLOGICAL Hx Falls: Yes - GASTROINTESTINAL Hx Gastrointestinal Disorders: No - GENITOURINARY/GYNECOLOGICAL Hx Genitourinary Disorders: No - PSYCHIATRIC Hx Substance Use: No - SURGICAL HISTORY Hx Surgeries: Yes Hx Cholecystectomy: Yes (in 2010) - ANESTHESIA Hx Anesthesia: Yes Hx Anesthesia Reactions: No Hx Malignant Hyperthermia: No Has any member of the family had a problem w/ anesthesia?: No Meds Allergies/Adverse Reactions: Allergies Allergy/AdvReac Type Severity Reaction Status Date / Time Gadolinium-Containing Allergy ITCHING Verified 07/23/16 20:50 Contrast Medi - Medications Medications: Current Medications Albuterol Sulfate (Albuterol 0.042% Inhal Tricia (1.25mg/3ml) Ud) 1.25 mg INH RTID [facility] Enalapril Maleate (Vasotec) 20 mg PO BID [facility] Last Admin: 09/07/16 17:37 Dose: 20 mg Epoetin Arturo (Procrit) 10,000 unit SC TTS [facility] Last Admin: 09/07/16 09:51 Dose: 10,000 unit Ferrous Sulfate (Feosol) 325 mg PO DAILY [facility] Last Admin: 09/07/16 09:34 Dose: 325 mg Guaifenesin (Mucinex La) 600 mg PO BID [facility] Last Admin: 09/07/16 17:37 Dose: 600 mg Insulin Glargine (Lantus) 15 unit SC [facility] Lactic Acid (Lac-Hydrin 12% Lotion (225 G)) 0 gm TOP DAILY [facility] Last Admin: 09/07/16 09:37 Dose: 1 applic Pantoprazole Sodium (Protonix Ec Tab) 40 mg PO DAILY [facility] Last Admin: 09/07/16 09:34 Dose: 40 mg Zolpidem Tartrate (Ambien) 5 mg PO [facility] Last Admin: 09/06/16 22:06 Dose: 5 mg Results - Vital Signs Recent Vital Signs: Last Vital Signs Temp 97.4 F L 09/07/16 16:00 Pulse 77 09/07/16 16:00 Resp 20 09/07/16 16:00 BP 175/73 H 09/07/16 17:37 Pulse Ox 98 09/07/16 16:00 - Labs Result Diagrams: 09/07/16 11:29 09/07/16 11:23 Labs: Laboratory Results - last 24 hr 09/06/16 09/06/16 09/07/16 20:07 21:52 07:19 WBC 4.6 L RBC 2.35 L Hgb 7.0 L Hct 21.6 L MCV 92.1 D MCH 29.9 MCHC 32.5 L RDW 20.9 H Plt Count 20 L* MPV 10.7 Neut % (Auto) 57.4 Lymph % (Auto) 22.9 [place] % (Auto) 19.3 H Eos % (Auto) 0.1 Baso % (Auto) 0.3 Neut # 2.6 Lymph # 1.0 [place] # 0.9 H Eos # 0.0 Baso # 0.0 Differential Comment Sodium Potassium Chloride Carbon Dioxide Anion Gap BUN Creatinine Est GFR ( Amer) Est GFR (Non-Af Amer) POC Glucose (mg/dL) 145 H 36 L* Random Glucose Calcium Free T4 TSH 3rd Generation 09/07/16 09/07/16 09/07/16 07:37 08:02 08:19 WBC RBC Hgb Hct MCV MCH MCHC RDW Plt Count MPV Neut % (Auto) Lymph % (Auto) [place] % (Auto) Eos % (Auto) Baso % (Auto) Neut # Lymph # [place] # Eos # Baso # Differential Comment Sodium Potassium Chloride Carbon Dioxide Anion Gap BUN Creatinine Est GFR ( Amer) Est GFR (Non-Af Amer) POC Glucose (mg/dL) 48 L 154 H Random Glucose Calcium Free T4 1.82 TSH 3rd Generation 1.99 09/07/16 09/07/16 09/07/16 11:23 11:28 11:29 WBC 4.9 RBC 3.01 L Hgb 8.9 L Hct 27.8 L MCV 92.5 MCH 29.4 MCHC 31.8 L RDW 20.5 H Plt Count 19 L* MPV 9.5 Neut % (Auto) 64.3 Lymph % (Auto) 21.6 [place] % (Auto) 13.5 H Eos % (Auto) 0.0 Baso % (Auto) 0.6 Neut # 3.2 Lymph # 1.1 [place] # 0.7 Eos # 0.0 Baso # 0.0 Differential Comment Sodium 136 Potassium 4.0 Chloride 107 Carbon Dioxide 24 Anion Gap 9 L BUN 18 H Creatinine 0.8 Est GFR ( Amer) > 60 Est GFR (Non-Af Amer) > 60 POC Glucose (mg/dL) 115 H Random Glucose 100 Calcium 8.1 L Free T4 TSH 3rd Generation 09/07/16 16:04 WBC RBC Hgb Hct MCV MCH MCHC RDW Plt Count MPV Neut % (Auto) Lymph % (Auto) [place] % (Auto) Eos % (Auto) Baso % (Auto) Neut # Lymph # [place] # Eos # Baso # Differential Comment Sodium Potassium Chloride Carbon Dioxide Anion Gap BUN Creatinine Est GFR ( Amer) Est GFR (Non-Af Amer) POC Glucose (mg/dL) 157 H Random Glucose Calcium Free T4 TSH 3rd Generation
[2016-09-07] MEDS: Albuterol 0.042% Inhal Sol (1.25 mg/3 mL) UD INH SCH (19:36)
[2016-09-07] MEDS: (Lantus) Insulin Glargine, Recombinant SC SCH (21:29)
--- NOTE | 2016-09-07 22:43 | CP.PCM.PN ---
Subjective - Date & Time of Evaluation Date of Evaluation: 09/07/16 Time of Evaluation: 13:25 - Subjective Subjective: Patient received another unit of packed celllsduring the night. She was seen by hematology and work up is in progress. Dr Silva on consult for bilateral pleural effusions. Objective - Vital Signs/Intake and Output Vital Signs (last 24 hours): Temp Pulse Resp BP Pulse Ox 97.4 F L 85 20 175/73 H 98 09/07/16 16:00 09/07/16 19:39 09/07/16 16:00 09/07/16 17:37 09/07/16 16:00 Intake and Output: 09/07/16 09/08/16 18:59 06:59 Intake Total 350 Balance 350 - Medications Medications: Current Medications Albuterol Sulfate (Albuterol 0.042% Inhal Tricia (1.25mg/3ml) Ud) 1.25 mg INH RTID [facility] Last Admin: 09/07/16 19:36 Dose: 1.25 mg Enalapril Maleate (Vasotec) 20 mg PO BID [facility] Last Admin: 09/07/16 17:37 Dose: 20 mg Epoetin Arturo (Procrit) 10,000 unit SC TTS [facility] Last Admin: 09/07/16 09:51 Dose: 10,000 unit Ferrous Sulfate (Feosol) 325 mg PO DAILY [facility] Last Admin: 09/07/16 09:34 Dose: 325 mg Guaifenesin (Mucinex La) 600 mg PO BID [facility] Last Admin: 09/07/16 17:37 Dose: 600 mg Insulin Glargine (Lantus) 15 unit SC HS [facility] Last Admin: 09/07/16 21:29 Dose: 15 unit Lactic Acid (Lac-Hydrin 12% Lotion (225 G)) 0 gm TOP DAILY [facility] Last Admin: 09/07/16 09:37 Dose: 1 applic Pantoprazole Sodium (Protonix Ec Tab) 40 mg PO DAILY [facility] Last Admin: 09/07/16 09:34 Dose: 40 mg Zolpidem Tartrate (Ambien) 5 mg PO HS [facility] Last Admin: 09/07/16 21:30 Dose: 5 mg - Labs Labs: 09/07/16 11:29 09/07/16 11:23 PT 23.2 SECONDS (9.7-12.2) H 09/06/16 00:45 INR 2.0 09/06/16 00:45 APTT 33 SECONDS (21-34) 09/06/16 00:45 - Constitutional Appears: No Acute Distress - Head Exam Head Exam: NORMAL INSPECTION - Eye Exam Eye Exam: Normal appearance Pupil Exam: NORMAL ACCOMODATION - ENT Exam ENT Exam: Normal Exam - Neck Exam Neck Exam: Normal Inspection - Respiratory Exam Respiratory Exam: Decreased Breath Sounds - Cardiovascular Exam Cardiovascular Exam: REGULAR RHYTHM - GI/Abdominal Exam GI & Abdominal Exam: Hyperactive Bowel Sounds - Rectal Exam Rectal Exam: Deferred - Exam Exam: Bladder Distension External exam: NORMAL EXTERNAL EXAM - Extremities Exam Extremities Exam: Joint Swelling, Pedal Edema, Tenderness - Back Exam Back Exam: NORMAL INSPECTION - Neurological Exam Neurological Exam: Oriented x3 - Psychiatric Exam Psychiatric exam: Depressed - Skin Skin Exam: Dry Assessment and Plan (1) Anemia Status: Acute (2) Thrombocytopenia Status: Acute (3) Degenerative disc disease at L5-S1 level Status: Acute (4) Pleural effusion Status: Acute (5) Lymphedema of lower extremity Status: Acute (6) Osteoarthritis Status: Acute (7) Thrombophlebitis Status: Acute
[2016-09-08] MEDS: Albuterol 0.042% Inhal Sol (1.25 mg/3 mL) UD INH SCH ×2 (07:59→19:50)
[2016-09-08 08:30] LABS: BASO % 0.2 % (0.0-2.0); EOS % 0.1 % (0.0-4.0); HEMATOCRIT 23.9 % (34.0-47.0); INR 2.3; LYMPH % 18.2 % (20.0-40.0); MEAN CORPUSCULAR HEMOGLOBIN 29.2 pg (27.0-31.0); MEAN CORPUSCULAR HGB CONC 31.7 g/dL (33.0-37.0); MEAN PLATELET VOLUME 8.4 fL (7.2-11.7); MONO # 0.8 K/uL (0.0-0.8); MONO % 15.7 % (0.0-10.0); NRBC % 3.4 % (0.0-2.0); RETIC% 1.6 % (0.5-1.5); WHITE BLOOD COUNT 5.4 K/uL (4.8-10.8)
[2016-09-08 08:46] LABS: CHLORIDE 107 mmol/L (98-107); POTASSIUM 3.8 mmol/L (3.6-5.2); SODIUM 136 mmol/L (132-148)
[2016-09-08 08:48] LABS: CARBON DIOXIDE 23 mmol/L (22-30); GFR AFRICAN-AMERICAN > 60
[2016-09-08 08:49] LABS: BLOOD UREA NITROGEN 15 mg/dL (7-17); GLUCOSE,RANDOM 108 mg/dL (65-105)
[2016-09-08] MEDS: Pantoprazole 40 mg EC Tab PO SCH (10:14)
[2016-09-08] MEDS: guaiFENesin 600 mg ER Tab PO SCH ×2 (10:14→17:38)
[2016-09-08] MEDS: Ammonium Lactate 12% Lotion (225 g) TOP SCH (10:16)
--- NOTE | 2016-09-08 14:42 | PN ---
DATE: 09/08/2016 SUBJECTIVE: The patient is alert, oriented, sitting in chair. PHYSICAL EXAMINATION: VITAL SIGNS: Afebrile with blood pressure 142/72, pulse 80, respirations 18, hemoglobin oxygen saturation 96%. Her dyspnea is easier while sitting in the chair. . Complains of no chest pain. HEART: Regular. There is no gallop. LUNGS: Diminished breath sounds over lung bases. Rhonchi decreased. ABDOMEN: Soft. EXTREMITIES: Bilateral leg swelling is present with mostly with no pitting edema. LABORATORY DATA: Her white count is 12,400, hemoglobin 7.6, platelet count 16, 000. INR 2.3. BUN 15, creatinine 0.9 and potassium 3.8, sodium 136. Her ferritin is 406. Glucose is 108. Leg Doppler report is negative for DVT. The patient has had blood transfusion and small dose of Lasix for pulmonary venous congestion. She is under the care of PMD. Abundio Silva MD cc: [id number] TT: 09/08/2016 14:41:13 Confirmation # [id number] Dictation # [id number] brisa SIMPSON
[2016-09-08 18:29] VITALS: RESP 20
[2016-09-08 19:36] LABS: ARTERIAL BLOOD HGB O2 SAT 95.4 % (95.0-98.0); CARBOXYHEMOGLOBIN 4.5 % (0.5-1.5); DRAW SITE LRA; HHB -2.6 % (0.0-5.0); METHEMOGLOBIN 2.7 % (0.0-3.0)
[2016-09-08] MEDS: (Lantus) Insulin Glargine, Recombinant SC SCH (21:58)
--- NOTE | 2016-09-08 22:52 | CP.PCM.PN ---
Subjective - Date & Time of Evaluation Date of Evaluation: 09/08/16 Time of Evaluation: 12:50 - Subjective Subjective: Alert and responsive. Platlets 16,000 inspite of receiving another unit of packed cells. Hemetology evaluating patient's lab results. Objective - Vital Signs/Intake and Output Vital Signs (last 24 hours): Temp Pulse Resp BP Pulse Ox 98.5 F 77 20 151/75 H 99 09/08/16 17:00 09/08/16 17:00 09/08/16 17:00 09/08/16 17:38 09/08/16 17:00 Intake and Output: 09/08/16 09/09/16 18:59 06:59 Intake Total 300 Balance 300 - Medications Medications: Current Medications Albuterol Sulfate (Albuterol 0.042% Inhal Tricia (1.25mg/3ml) Ud) 1.25 mg INH RTID [facility] Last Admin: 09/08/16 19:50 Dose: 1.25 mg Enalapril Maleate (Vasotec) 20 mg PO BID [facility] Last Admin: 09/08/16 17:38 Dose: 20 mg Epoetin Arturo (Procrit) 10,000 unit SC TTS [facility] Last Admin: 09/07/16 09:51 Dose: 10,000 unit Ferrous Sulfate (Feosol) 325 mg PO DAILY [facility] Last Admin: 09/08/16 11:55 Dose: 325 mg Guaifenesin (Mucinex La) 600 mg PO BID [facility] Last Admin: 09/08/16 17:38 Dose: 600 mg Insulin Glargine (Lantus) 15 unit SC HS [facility] Last Admin: 09/08/16 21:58 Dose: 15 unit Lactic Acid (Lac-Hydrin 12% Lotion (225 G)) 0 gm TOP DAILY [facility] Last Admin: 09/08/16 10:16 Dose: 1 applic Pantoprazole Sodium (Protonix Ec Tab) 40 mg PO DAILY [facility] Last Admin: 09/08/16 10:14 Dose: 40 mg Zolpidem Tartrate (Ambien) 5 mg PO HS [facility] Last Admin: 09/08/16 21:58 Dose: 5 mg - Labs Labs: 09/08/16 08:13 09/08/16 08:13 PT 27.2 SECONDS (9.7-12.2) H 09/08/16 08:13 INR 2.3 09/08/16 08:13 APTT 33 SECONDS (21-34) 09/06/16 00:45 - Constitutional Appears: No Acute Distress - Head Exam Head Exam: NORMAL INSPECTION - Eye Exam Eye Exam: Normal appearance - Neck Exam Neck Exam: Normal Inspection - Respiratory Exam Respiratory Exam: Decreased Breath Sounds - Cardiovascular Exam Cardiovascular Exam: REGULAR RHYTHM - GI/Abdominal Exam GI & Abdominal Exam: Hyperactive Bowel Sounds - Rectal Exam Rectal Exam: Deferred - Exam External exam: NORMAL EXTERNAL EXAM - Extremities Exam Extremities Exam: Tenderness - Back Exam Back Exam: NORMAL INSPECTION - Neurological Exam Neurological Exam: Oriented x3 - Psychiatric Exam Psychiatric exam: Depressed - Skin Skin Exam: Dry Assessment and Plan (1) Anemia Status: Acute (2) Thrombocytopenia Status: Acute (3) Degenerative disc disease at L5-S1 level Status: Acute (4) Pleural effusion Status: Acute (5) Lymphedema of lower extremity Status: Acute (6) Osteoarthritis Status: Acute (7) Thrombophlebitis Status: Acute
[2016-09-09] MEDS: Albuterol 0.042% Inhal Sol (1.25 mg/3 mL) UD INH SCH ×3 (08:20→20:26)
[2016-09-09] MEDS: guaiFENesin 600 mg ER Tab PO SCH ×2 (09:30→17:21)
[2016-09-09] MEDS: EPOETIN ALFA 10,000 UNIT/ML ML SC SCH (09:32)
[2016-09-09] MEDS: Ammonium Lactate 12% Lotion (225 g) TOP SCH (09:32)
[2016-09-09] MEDS: Pantoprazole 40 mg EC Tab PO SCH (09:34)
[2016-09-09 12:21] LABS: BASO % 0.5 % (0.0-2.0); EOS % 0.5 % (0.0-4.0); HEMATOCRIT 25.4 % (34.0-47.0); LYMPH # 1.1 K/uL (1.0-4.3); MEAN CELL VOLUME 93.7 fL (81.0-99.0); MEAN CORPUSCULAR HEMOGLOBIN 29.2 pg (27.0-31.0); MEAN CORPUSCULAR HGB CONC 31.2 g/dL (33.0-37.0); MEAN PLATELET VOLUME 10.9 fL (7.2-11.7); MONO # 0.7 K/uL (0.0-0.8); MONO % 14.3 % (0.0-10.0); NRBC % 3.1 % (0.0-2.0); RED CELL DISTRIBUTION WIDTH 21.3 % (11.5-14.5); WHITE BLOOD COUNT 4.9 K/uL (4.8-10.8)
--- NOTE | 2016-09-09 21:21 | CP.PCM.PN ---
Subjective - Date & Time of Evaluation Date of Evaluation: 09/09/16 Time of Evaluation: 16:10 - Subjective Subjective: Patient resting comfortably. She is in no acute distress. Latest platlet count 21,000, Hct 25. Will order another unit of packed cells. Hematology evaluation in progress. Objective - Vital Signs/Intake and Output Vital Signs (last 24 hours): Temp Pulse Resp BP Pulse Ox 98.1 F 76 20 142/96 H 100 09/09/16 15:04 09/09/16 15:04 09/09/16 15:04 09/09/16 17:21 09/09/16 15:04 Intake and Output: 09/09/16 09/10/16 18:59 06:59 Intake Total 800 Balance 800 - Medications Medications: Current Medications Albuterol Sulfate (Albuterol 0.042% Inhal Tricia (1.25mg/3ml) Ud) 1.25 mg INH RTID [facility] Last Admin: 09/09/16 20:26 Dose: 1.25 mg Enalapril Maleate (Vasotec) 20 mg PO BID [facility] Last Admin: 09/09/16 17:21 Dose: 20 mg Epoetin Arturo (Procrit) 10,000 unit SC TTS [facility] Last Admin: 09/09/16 09:32 Dose: 10,000 unit Ferrous Sulfate (Feosol) 325 mg PO DAILY [facility] Last Admin: 09/09/16 09:30 Dose: 325 mg Guaifenesin (Mucinex La) 600 mg PO BID [facility] Last Admin: 09/09/16 17:21 Dose: 600 mg Insulin Glargine (Lantus) 15 unit SC HS [facility] Last Admin: 09/08/16 21:58 Dose: 15 unit Lactic Acid (Lac-Hydrin 12% Lotion (225 G)) 0 gm TOP DAILY [facility] Last Admin: 09/09/16 09:32 Dose: 1 applic Pantoprazole Sodium (Protonix Ec Tab) 40 mg PO DAILY [facility] Last Admin: 09/09/16 09:34 Dose: 40 mg Zolpidem Tartrate (Ambien) 5 mg PO HS [facility] Last Admin: 09/08/16 21:58 Dose: 5 mg - Labs Labs: 09/09/16 12:07 09/08/16 08:13 PT 27.2 SECONDS (9.7-12.2) H 09/08/16 08:13 INR 2.3 09/08/16 08:13 APTT 33 SECONDS (21-34) 09/06/16 00:45 - Constitutional Appears: No Acute Distress - Head Exam Head Exam: NORMAL INSPECTION - Eye Exam Eye Exam: Normal appearance - ENT Exam ENT Exam: Normal Exam - Neck Exam Neck Exam: Normal Inspection - Respiratory Exam Respiratory Exam: Decreased Breath Sounds - Cardiovascular Exam Cardiovascular Exam: REGULAR RHYTHM - GI/Abdominal Exam GI & Abdominal Exam: Hyperactive Bowel Sounds - Rectal Exam Rectal Exam: Deferred - Exam External exam: NORMAL EXTERNAL EXAM - Extremities Exam Extremities Exam: Pedal Edema - Back Exam Back Exam: NORMAL INSPECTION - Neurological Exam Neurological Exam: Oriented x3 - Psychiatric Exam Psychiatric exam: Depressed - Skin Skin Exam: Dry Assessment and Plan (1) Anemia Status: Acute (2) Thrombocytopenia Status: Acute (3) Degenerative disc disease at L5-S1 level Status: Acute (4) Pleural effusion Status: Acute (5) Lymphedema of lower extremity Status: Acute (6) Osteoarthritis Status: Acute (7) Thrombophlebitis Status: Acute
[2016-09-09] MEDS: (Lantus) Insulin Glargine, Recombinant SC SCH (21:31)
[2016-09-10] MEDS: Albuterol 0.042% Inhal Sol (1.25 mg/3 mL) UD INH SCH ×3 (08:38→21:00)
[2016-09-10] MEDS: Pantoprazole 40 mg EC Tab PO SCH (09:04)
[2016-09-10] MEDS: guaiFENesin 600 mg ER Tab PO SCH ×2 (09:04→18:00)
[2016-09-10] MEDS: Ammonium Lactate 12% Lotion (225 g) TOP SCH (09:06)
--- NOTE | 2016-09-10 09:15 | VASCLAB ---
PROCEDURE: Lower Extremity Venous Duplex Exam. HISTORY: r/o dvt PRIORS: 07/22/2016 TECHNIQUE: Bilateral common femoral, femoral, popliteal and posterior tibial, peroneal and great saphenous veins were evaluated. Flow was assessed with color Doppler, compressibility, assessment of phasic flow and augmentation response. Report prepared by LIU Hatch, RVT FINDINGS: RIGHT: 1. Common Femoral Vein: 1.1. Compressibility - Fully compressible: Thrombus - None : Flow - Phasic: Augmentation -Normal: Reflux - None. 2. Femoral Vein: 2.1. Compressibility - Fully compressible: Thrombus - None : Flow - Phasic: Augmentation -Normal: Reflux - None. 3. Popliteal Vein: 3.1. Compressibility - Fully compressible: Thrombus - None : Flow - Phasic: Augmentation -Normal: Reflux - None. 4. Posterior Tibial Vein: 4.1. Compressibility - Not optimally obtained. . 5. Peroneal Vein: 5.1. Compressibility - Not optimally obtained. 6. Great Saphenous Vein: 6.1. Compressibility - Fully compressible: Thrombus - None: Flow - Phasic: Augmentation - Normal: Reflux - None. LEFT: 1. Common Femoral Vein: 1.1. Compressibility - Fully compressible: Thrombus - None: Flow - Phasic: Augmentation -Normal: Reflux - None. 2. Femoral Vein: 2.1. Compressibility - Fully compressible: Thrombus - None: Flow - Phasic: Augmentation -Normal: Reflux - None. 3. Popliteal Vein: 3.1. Compressibility - Fully compressible: Thrombus - None : Flow - Phasic: Augmentation -Normal: Reflux - None. 4. Posterior Tibial Vein: 4.1. Compressibility - Not optimally obtained. 5. Peroneal Vein: 5.1. Compressibility - Not optimally obtained. 6. Great Saphenous Vein: 6.1. Compressibility - Fully compressible: Thrombus - None: Flow - Phasic: Augmentation - Normal: Reflux - None. OTHER FINDINGS: Right: Due to swelling in the calf, the right peroneal and posterior tibial vein are not visualized. Left: Due to swelling in the calf, the left peroneal and posterior tibial vein are not visualized. IMPRESSION: Right: No evidence of deep or superficial vein thrombosis of the right lower extremity. Normal valve function noted of the right side. Left: No evidence of deep or superficial vein thrombosis of the left lower extremity. Normal valve function noted of the left side.
[2016-09-10 11:12] LABS: HEMATOCRIT 27.7 % (34.0-47.0); MEAN CELL VOLUME 94.3 fL (81.0-99.0); MEAN CORPUSCULAR HEMOGLOBIN 28.9 pg (27.0-31.0); MEAN CORPUSCULAR HGB CONC 30.7 g/dL (33.0-37.0); MEAN PLATELET VOLUME 8.2 fL (7.2-11.7); WHITE BLOOD COUNT 4.4 K/uL (4.8-10.8)
[2016-09-10 12:38] LABS: BASO % 0.4 % (0.0-2.0); EOS % 0.1 % (0.0-4.0); LYMPH # 1.5 K/uL (1.0-4.3); LYMPH % 35.1 % (20.0-40.0); MONO # 0.5 K/uL (0.0-0.8); MONO % 12.5 % (0.0-10.0)
[2016-09-10] MEDS: (Lantus) Insulin Glargine, Recombinant SC SCH (22:11)
[2016-09-11] MEDS: Albuterol 0.042% Inhal Sol (1.25 mg/3 mL) UD INH SCH ×3 (07:53→20:03)
[2016-09-11 08:40] LABS: BASO % 0.6 % (0.0-2.0); EOS % 0.2 % (0.0-4.0); HEMATOCRIT 23.8 % (34.0-47.0); LYMPH # 0.9 K/uL (1.0-4.3); LYMPH % 24.4 % (20.0-40.0); MEAN CELL VOLUME 92.9 fL (81.0-99.0); MEAN CORPUSCULAR HEMOGLOBIN 29.2 pg (27.0-31.0); MEAN CORPUSCULAR HGB CONC 31.5 g/dL (33.0-37.0); MEAN PLATELET VOLUME 11.2 fL (7.2-11.7); MONO # 0.7 K/uL (0.0-0.8); MONO % 18.8 % (0.0-10.0); NRBC % 2.6 % (0.0-2.0); RED CELL DISTRIBUTION WIDTH 21.6 % (11.5-14.5); WHITE BLOOD COUNT 3.8 K/uL (4.8-10.8)
[2016-09-11 08:41] LABS: CHLORIDE 105 mmol/L (98-107); SODIUM 138 mmol/L (132-148)
[2016-09-11 08:42] LABS: POTASSIUM 3.7 mmol/L (3.6-5.2)
[2016-09-11 08:44] LABS: ALB/GLOB RATIO 0.6 (1.0-2.1); ALKALINE PHOSPHATASE 102 U/L (38-126); ALT/SGPT 12 U/L (9-52); AST/SGOT 16 U/L (14-36); BILIRUBIN,TOTAL 0.8 mg/dL (0.2-1.3); BLOOD UREA NITROGEN 13 mg/dL (7-17); CARBON DIOXIDE 25 mmol/L (22-30); GFR AFRICAN-AMERICAN > 60; TOTAL PROTEIN 8.1 g/dL (6.3-8.3)
[2016-09-11 08:45] LABS: CALCIUM 8.1 mg/dl (8.6-10.4); GLUCOSE,RANDOM 110 mg/dL (65-105)
[2016-09-11 09:02] LABS: INR 1.5
[2016-09-11] MEDS: Ammonium Lactate 12% Lotion (225 g) TOP SCH (09:59)
[2016-09-11] MEDS: Pantoprazole 40 mg EC Tab PO SCH (10:01)
[2016-09-11] MEDS: guaiFENesin 600 mg ER Tab PO SCH ×2 (10:01→17:06)
--- NOTE | 2016-09-11 17:24 | CP.PCM.PN ---
Subjective - Date & Time of Evaluation Date of Evaluation: 09/13/16 Time of Evaluation: 16:00 - Subjective Subjective: Hemoglobin is dropping again without any obvious bleeding. Flow cytometry pending. 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 Objective - Vital Signs/Intake and Output Vital Signs (last 24 hours): Temp Pulse Resp BP Pulse Ox 97.6 F 75 20 155/69 H 100 09/11/16 08:00 09/11/16 08:00 09/11/16 08:00 09/11/16 17:06 09/11/16 08:00 Intake and Output: 09/11/16 09/11/16 06:59 18:59 Intake Total 300 600 Balance 300 600 - Medications Medications: Current Medications Albuterol Sulfate (Albuterol 0.042% Inhal Tricia (1.25mg/3ml) Ud) 1.25 mg INH RTID [facility] Last Admin: 09/11/16 13:58 Dose: 1.25 mg Enalapril Maleate (Vasotec) 20 mg PO BID [facility] Last Admin: 09/11/16 17:06 Dose: 20 mg Epoetin Arturo (Procrit) 10,000 unit SC TTS [facility] Last Admin: 09/09/16 09:32 Dose: 10,000 unit Ferrous Sulfate (Feosol) 325 mg PO DAILY [facility] Last Admin: 09/11/16 10:01 Dose: 325 mg Guaifenesin (Mucinex La) 600 mg PO BID [facility] Last Admin: 09/11/16 17:06 Dose: 600 mg Insulin Glargine (Lantus) 15 unit SC HS [facility] Last Admin: 09/10/16 22:11 Dose: 15 unit Lactic Acid (Lac-Hydrin 12% Lotion (225 G)) 0 gm TOP DAILY [facility] Last Admin: 09/11/16 09:59 Dose: 1 applic Pantoprazole Sodium (Protonix Ec Tab) 40 mg PO DAILY [facility] Last Admin: 09/11/16 10:01 Dose: 40 mg Zolpidem Tartrate (Ambien) 5 mg PO HS [facility] Last Admin: 09/10/16 22:11 Dose: 5 mg - Labs Labs: 09/11/16 08:22 09/11/16 08:22 PT 17.0 SECONDS (9.7-12.2) H 09/11/16 08:22 INR 1.5 09/11/16 08:22 APTT 29 SECONDS (21-34) 09/11/16 08:22
--- NOTE | 2016-09-11 18:53 | RAD ---
HISTORY: chf COMPARISON: Move to the FINDINGS: LUNGS: There is mild pulmonary venous congestion. PLEURA: Questionable tiny bilateral effusions. No evidence of pneumothorax. CARDIOVASCULAR: Heart appears enlarged OSSEOUS STRUCTURES: No significant abnormalities. VISUALIZED UPPER ABDOMEN: Normal. OTHER FINDINGS: None. IMPRESSION: Mild pulmonary venous congestion. Cardiomegaly.
[2016-09-11] MEDS: (Lantus) Insulin Glargine, Recombinant SC SCH (21:44)
--- NOTE | 2016-09-11 22:49 | CP.PCM.PN ---
Subjective - Date & Time of Evaluation Date of Evaluation: 09/11/16 Time of Evaluation: 13:05 - Subjective Subjective: Patient's Hgb still falling with no sins of bleeding. She is being evaluated by hematology. Flow cytometry pending. Objective - Vital Signs/Intake and Output Vital Signs (last 24 hours): Temp Pulse Resp BP Pulse Ox 98.4 F 71 20 127/73 99 09/11/16 22:25 09/11/16 22:25 09/11/16 22:25 09/11/16 22:25 09/11/16 16:00 Intake and Output: 09/11/16 09/12/16 18:59 06:59 Intake Total 600 412 Balance 600 412 - Medications Medications: Current Medications Albuterol Sulfate (Albuterol 0.042% Inhal Tricia (1.25mg/3ml) Ud) 1.25 mg INH RTID [facility] Last Admin: 09/11/16 20:03 Dose: 1.25 mg Enalapril Maleate (Vasotec) 20 mg PO BID [facility] Last Admin: 09/11/16 17:06 Dose: 20 mg Epoetin Arturo (Procrit) 10,000 unit SC TTS [facility] Last Admin: 09/09/16 09:32 Dose: 10,000 unit Ferrous Sulfate (Feosol) 325 mg PO DAILY [facility] Last Admin: 09/11/16 10:01 Dose: 325 mg Guaifenesin (Mucinex La) 600 mg PO BID [facility] Last Admin: 09/11/16 17:06 Dose: 600 mg Ibuprofen (Motrin Tab) 400 mg PO Q4H PRN PRN Reason: Pain, moderate (4-7) Last Admin: 09/11/16 21:28 Dose: 400 mg Insulin Glargine (Lantus) 15 unit SC HS [facility] Last Admin: 09/11/16 21:44 Dose: 15 unit Lactic Acid (Lac-Hydrin 12% Lotion (225 G)) 0 gm TOP DAILY [facility] Last Admin: 09/11/16 09:59 Dose: 1 applic Pantoprazole Sodium (Protonix Ec Tab) 40 mg PO DAILY [facility] Last Admin: 09/11/16 10:01 Dose: 40 mg Zolpidem Tartrate (Ambien) 5 mg PO HS [facility] Last Admin: 09/11/16 21:42 Dose: 5 mg - Labs Labs: 09/11/16 08:22 09/11/16 08:22 PT 17.0 SECONDS (9.7-12.2) H 09/11/16 08:22 INR 1.5 09/11/16 08:22 APTT 29 SECONDS (21-34) 09/11/16 08:22 - Constitutional Appears: No Acute Distress - Head Exam Head Exam: NORMAL INSPECTION - Eye Exam Eye Exam: Normal appearance - ENT Exam ENT Exam: Normal Exam - Neck Exam Neck Exam: Normal Inspection - Respiratory Exam Respiratory Exam: Decreased Breath Sounds - Cardiovascular Exam Cardiovascular Exam: REGULAR RHYTHM - GI/Abdominal Exam GI & Abdominal Exam: Hyperactive Bowel Sounds - Rectal Exam Rectal Exam: Deferred - Exam External exam: NORMAL EXTERNAL EXAM - Extremities Exam Extremities Exam: Tenderness - Back Exam Back Exam: NORMAL INSPECTION - Neurological Exam Neurological Exam: Oriented x3 - Psychiatric Exam Psychiatric exam: Depressed - Skin Skin Exam: Dry Assessment and Plan (1) Anemia Status: Acute (2) Thrombocytopenia Status: Acute (3) Degenerative disc disease at L5-S1 level Status: Acute (4) Pleural effusion Status: Acute (5) Lymphedema of lower extremity Status: Acute (6) Osteoarthritis Status: Acute (7) Thrombophlebitis Status: Acute
--- NOTE | 2016-09-12 07:07 | PN ---
DATE: 09/11/2016 The patient is alert, oriented. VITAL SIGNS: Afebrile with pulse of 75 per minute, blood pressure ____/70 ____ respiration ____ hemo globin oxygen saturation is ____%. Her dyspnea is decreased. There is no chest pain. PHYSICAL EXAMINATION: HEART: Regular. There is no gallop rhythm. LUNGS: Diminished breath sounds over lung bases. Rhonchi decreased. ABDOMEN: Soft ____. Her white count is 3800, hemoglobin 7.5 and platelet count is 22,000 ____ sodium 138, potassium 3.7, BUN ____, creatinine 0.9, ____ 2.9 ____. IMPRESSION: Respiratory insufficiency, diabetes mellitus, anemia, hypertensive cardiovascular diseas e with pulmonary venous congestion and small pleural effusion ____. PLAN: To continue the current measures and follow up with hematology. Abundio Silva MD cc: [id number] TT: 09/11/2016 13:24:40 Confirmation # [id number] Dictation # [id number] en
[2016-09-12] MEDS: Albuterol 0.042% Inhal Sol (1.25 mg/3 mL) UD INH SCH ×2 (08:48→13:50)
[2016-09-12] MEDS: Pantoprazole 40 mg EC Tab PO SCH (10:58)
[2016-09-12] MEDS: Ammonium Lactate 12% Lotion (225 g) TOP SCH (11:02)
[2016-09-12] MEDS: guaiFENesin 600 mg ER Tab PO SCH ×2 (11:05→18:17)
[2016-09-12] MEDS: EPOETIN ALFA 10,000 UNIT/ML ML SC SCH (11:09)
[2016-09-12 12:08] LABS: HEMATOCRIT 26.5 % (34.0-47.0); LYMPH % 23.1 % (20.0-40.0); MEAN CORPUSCULAR HEMOGLOBIN 28.9 pg (27.0-31.0); MEAN PLATELET VOLUME 8.1 fL (7.2-11.7); MONO # 0.7 K/uL (0.0-0.8); MONO % 16.3 % (0.0-10.0); NRBC % 1.5 % (0.0-2.0); WHITE BLOOD COUNT 4.1 K/uL (4.8-10.8)
--- NOTE | 2016-09-12 14:12 | PN ---
DATE: 09/12/2016 SUBJECTIVE: The patient is alert, oriented, sitting in the chair. PHYSICAL EXAMINATION: VITAL SIGNS: She is afebrile with blood pressure 152/74, pulse 68, respirations 20, hemoglobin oxyge n saturation of 98%. Her dyspnea has improved. There is no chest pain. HEART: ____. No gallop ____. LUNGS: Diminished breath sounds over lung bases. Rhonchi decreased. ABDOMEN: Soft. EXTREMITIES: Legs, no change. He has nonpitting swelling of his ____. LABORATORY DATA: White count is 4100, hemoglobin 8.2. She has had one unit of blood transfusion tod ay. Her platelet count remains low at 17,000. The patient was seen by campground cleaning attendant. His sodium is 138, potassium 3.7, BUN 13, creatinine 0.9. Chest x-ray shows poor inspiratory ____ with large heart ____ congestion, ____ rotation ____ mediastinum ____. Abundio Silva MD cc: [id number] TT: 09/12/2016 14:02:01 Confirmation # [id number] Dictation # [id number] sn
--- NOTE | 2016-09-12 16:48 | CT ---
CT chest without IV contrast Indication: CHF, pleural effusion, left basal haze Technique: Contiguous axial images were obtained through the chest without intravenous contrast enhancement. Sagittal and coronal reconstructions were generated and reviewed. This CT exam was performed using 1 or more of the falling dose reduction techniques: Automated exposure control, adjustment of the MAA and/or kV according to patient size, and/or use of iterative reconstruction technique. Radiation dose (DLP): 845.01 MGy-cm. Comparison: Chest x-ray performed 09/11/16, CT of the chest, abdomen, pelvis without IV contrast performed 07/21/16 Findings: Visualized portions of the inferior thyroid gland appear heterogeneous and enlarged. The mediastinal and hilar vascular structures appear within normal limits. Cardiomegaly. Moderate pulmonary venous congestion. Mild left basilar atelectasis. Small sien-jrdrfgl-xkwa-right pleural effusions. No pneumothorax. Moderate-sized hiatal hernia. Fluid within the a esophagus compatible with gastroesophageal reflux. Limited visualization of the noncontrast upper abdomen: 16 mm rounded density within the left upper chest measures approximately 13 HU, possibly cyst. 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 2.7 cm probable left lower pole angiomyelolipoma. Fatty atrophy of the pancreas. Rounded radiopaque density with in the gastric lumen at the level of the hiatal hernia; likely ingested debris. No acute osseous abnormality is detected. Impression: Cardiomegaly. Moderate pulmonary venous congestion. Mild left basilar atelectasis. Small ekgg-bhlhbgv-ftid-right pleural effusions. Moderate-sized hiatal hernia. Gastroesophageal reflux. 16 mm rounded density within the upper left chest possibly cyst. Recommend further evaluation with dedicated breast imaging and or targeted ultrasound. 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 Markedly heterogeneous and enlarged included portions of the thyroid gland. Recommend further evaluation with outpatient dedicated ultrasound. Additional findings as above.
[2016-09-12] MEDS: (Lantus) Insulin Glargine, Recombinant SC SCH (22:06)
--- NOTE | 2016-09-12 22:56 | CP.PCM.PN ---
Subjective - Date & Time of Evaluation Date of Evaluation: 09/12/16 Time of Evaluation: 13:15 - Subjective Subjective: Patient is alert and responsive. Latest Hct 26 and platlets 17,000. Hematology evaluation in progress. Objective - Vital Signs/Intake and Output Vital Signs (last 24 hours): Temp Pulse Resp BP Pulse Ox 98.5 F 69 20 150/74 100 09/12/16 15:40 09/12/16 15:40 09/12/16 15:40 09/12/16 18:17 09/12/16 15:40 Intake and Output: 09/12/16 09/13/16 18:59 06:59 Intake Total 550 450 Balance 550 450 - Medications Medications: Current Medications Enalapril Maleate (Vasotec) 20 mg PO BID [facility] Last Admin: 09/12/16 18:17 Dose: 20 mg Epoetin Arturo (Procrit) 10,000 unit SC TTS [facility] Last Admin: 09/12/16 11:09 Dose: 10,000 unit Ferrous Sulfate (Feosol) 325 mg PO DAILY [facility] Last Admin: 09/12/16 10:59 Dose: 325 mg Guaifenesin (Mucinex La) 600 mg PO BID [facility] Last Admin: 09/12/16 18:17 Dose: 600 mg Ibuprofen (Motrin Tab) 400 mg PO Q4H PRN PRN Reason: Pain, moderate (4-7) Last Admin: 09/12/16 16:07 Dose: 400 mg Insulin Glargine (Lantus) 15 unit SC HS [facility] Last Admin: 09/12/16 22:06 Dose: 15 unit Lactic Acid (Lac-Hydrin 12% Lotion (225 G)) 0 gm TOP DAILY [facility] Last Admin: 09/12/16 11:02 Dose: 1 applic Pantoprazole Sodium (Protonix Ec Tab) 40 mg PO DAILY [facility] Last Admin: 09/12/16 10:58 Dose: 40 mg Zolpidem Tartrate (Ambien) 5 mg PO HS [facility] Last Admin: 09/12/16 22:05 Dose: 5 mg - Labs Labs: 09/12/16 11:41 09/11/16 08:22 PT 17.0 SECONDS (9.7-12.2) H 09/11/16 08:22 INR 1.5 09/11/16 08:22 APTT 29 SECONDS (21-34) 09/11/16 08:22 - Constitutional Appears: No Acute Distress - Head Exam Head Exam: NORMOCEPHALIC - Eye Exam Eye Exam: Normal appearance Pupil Exam: NORMAL ACCOMODATION - ENT Exam ENT Exam: Normal Oropharynx - Neck Exam Neck Exam: Normal Inspection - Respiratory Exam Respiratory Exam: Decreased Breath Sounds - Cardiovascular Exam Cardiovascular Exam: REGULAR RHYTHM - GI/Abdominal Exam GI & Abdominal Exam: Hyperactive Bowel Sounds - Rectal Exam Rectal Exam: Deferred - Exam External exam: NORMAL EXTERNAL EXAM - Extremities Exam Extremities Exam: Tenderness - Back Exam Back Exam: NORMAL INSPECTION - Neurological Exam Neurological Exam: Oriented x3 - Psychiatric Exam Psychiatric exam: Depressed - Skin Skin Exam: Dry Assessment and Plan (1) Anemia Status: Acute (2) Thrombocytopenia Status: Acute (3) Degenerative disc disease at L5-S1 level Status: Acute (4) Pleural effusion Status: Acute (5) Lymphedema of lower extremity Status: Acute (6) Osteoarthritis Status: Acute (7) Thrombophlebitis Status: Acute
[2016-09-13] MEDS: Ammonium Lactate 12% Lotion (225 g) TOP SCH (10:07)
[2016-09-13] MEDS: Pantoprazole 40 mg EC Tab PO SCH (10:07)
[2016-09-13] MEDS: guaiFENesin 600 mg ER Tab PO SCH ×2 (10:08→18:10)
--- NOTE | 2016-09-13 10:42 | PN ---
DATE: 09/13/2016 OBJECTIVE: GENERAL: The patient is alert, oriented, in bed. VITAL SIGNS: She is afebrile with blood pressure 124/70, pulse rate 76 per minute, respiration 20. Her dyspnea is decreasing. Her hemoglobin is going up today. The patient has been seen by the key account coordinator. HEART: Regular. No gallop rhythm. LUNGS: Diminished breath sounds over lung bases. Rhonchi decreased. ABDOMEN: Soft. LEGS: No change in the leg swelling. IMPRESSION: Respiratory insufficiency, hypertensive cardiovascular disease, anemia, diabetes mellitus, bronchitis. PLAN: Continue with the current measures and follow up with the key account coordinator. Abundio Silva MD cc: [id number] TT: 09/13/2016 10:41:35 Confirmation # [id number] Dictation # [id number] marta SIMPSON
[2016-09-13] MEDS ORDERED: Lidocaine 2% Inj (20ml) ONE (13:46)
--- NOTE | 2016-09-13 14:06 | PCM.SURG1 ---
Surgeon's Initial Post Op Note - Surgeon's Notes Surgeon: Porfirio Marin MD Hand Shaper: NONE Type of Anesthesia: Local Pre-Operative Diagnosis: Poor venous access Operative Findings: Patent right basilic vein. Post-Operative Diagnosis: Poor venous access Operation Performed: Right basilic vein single lumen picc placement, 35 cm. Tip in SVC. Specimen/Specimens Removed: NONE Estimated Blood Loss: EBL {In ML}: 2 Blood Products Given: N/A Drains Used: No Drains, [place] Post-Op Condition: Fair Date of Surgery/Procedure: 09/13/16 Time of Surgery/Procedure: 14:00
--- NOTE | 2016-09-13 14:48 | SPECPROC ---
PROCEDURE: Date of procedure: 09/13/2016 Procedure: 1. Placement of a right arm PICC with ultrasound and fluoroscopic guidance, CPT 36672 2. PICC tip confirmation with spot radiograph and is in the superior vena cava Medications: 1 percent lidocaine HISTORY: Poor venous access. TECHNIQUE: Following informed consent and procedure time-out, the patient was placed supine on the interventional table and the right arm prepped and draped in the usual sterile fashion. Ultrasound showed a patent and compressible right basilic vein. After the skin was anesthetized with lidocaine, the basilic vein was accessed with micro micropuncture technique using ultrasound guidance. A guidewire was then advanced under fluoroscopic guidance into the superior vena cava. An image documenting ultrasound guidance for vascular access was permanently saved. The length of the single-lumen 4 [place] PICC was trimmed to 35 centimeters and advanced through a peel-away sheath. The PICC was position with tip of PICC confirm a spot radiograph the superior vena cava. The PICC was secured to the patient's skin. The PICC was flushed. A biopatch and sterile dressing was applied. IMPRESSION: Placement of a single-lumen 4 [place] PICC trimmed to 35 centimeters via right basilic vein. The tip of the PICC is confirmed with spot radiograph and is in the superior vena cava.
--- NOTE | 2016-09-13 17:10 | CP.PCM.PCO ---
Physician Communication Note - Physician Communication Note Physician Communication Note: Discussed with patient's son about her pancytopenia, normal Iron studies, B
--- NOTE | 2016-09-13 17:29 | CP.PCM.PN ---
Subjective - Date & Time of Evaluation Date of Evaluation: 09/13/16 Time of Evaluation: 17:22 - Subjective Subjective: Patient not seen today, but discussed with son regarding her pancytopenia, her labs showing adequate iron stores, B12 and essentially normal scans except for large hiatal hernia. have explained that the cytopenias have been progressive, ans she has been requiring increased transfusions. The flow cytometry is still pending. the patient has been very reluctant to get a repeat bone marrow biopsy. Plan- Would recommend continuing the Procrit as outpatient and drawing labs every week Objective - Vital Signs/Intake and Output Vital Signs (last 24 hours): Temp Pulse Resp BP Pulse Ox 98.8 F 70 20 156/73 H 100 09/13/16 16:00 09/13/16 16:00 09/13/16 16:00 09/13/16 16:00 09/13/16 16:00 Intake and Output: 09/13/16 09/13/16 06:59 18:59 Intake Total 797 1037 Balance 797 1037 - Medications Medications: Current Medications Enalapril Maleate (Vasotec) 20 mg PO BID [facility] Last Admin: 09/13/16 10:10 Dose: 20 mg Epoetin Arturo (Procrit) 10,000 unit SC TTS [facility] Last Admin: 09/12/16 11:09 Dose: 10,000 unit Ferrous Sulfate (Feosol) 325 mg PO DAILY [facility] Last Admin: 09/13/16 10:07 Dose: 325 mg Guaifenesin (Mucinex La) 600 mg PO BID [facility] Last Admin: 09/13/16 10:08 Dose: 600 mg Ibuprofen (Motrin Tab) 400 mg PO Q4H PRN PRN Reason: Pain, moderate (4-7) Last Admin: 09/12/16 16:07 Dose: 400 mg Insulin Glargine (Lantus) 15 unit SC HS [facility] Last Admin: 09/12/16 22:06 Dose: 15 unit Lactic Acid (Lac-Hydrin 12% Lotion (225 G)) 0 gm TOP DAILY [facility] Last Admin: 09/13/16 10:07 Dose: 1 applic Pantoprazole Sodium (Protonix Ec Tab) 40 mg PO DAILY [facility] Last Admin: 09/13/16 10:07 Dose: 40 mg Zolpidem Tartrate (Ambien) 5 mg PO HS [facility] Last Admin: 09/12/16 22:05 Dose: 5 mg - Labs Labs: 09/12/16 11:41 09/11/16 08:22 PT 17.0 SECONDS (9.7-12.2) H 09/11/16 08:22 INR 1.5 09/11/16 08:22 APTT 29 SECONDS (21-34) 09/11/16 08:22
[2016-09-13] MEDS: (Lantus) Insulin Glargine, Recombinant SC SCH (21:35)
--- NOTE | 2016-09-13 22:05 | CP.PCM.PN ---
Subjective - Date & Time of Evaluation Date of Evaluation: 09/13/16 Time of Evaluation: 13:20 - Subjective Subjective: Patient scheduled for [facility] today. Patient will need frequent transfusions. Spoke with patient's son.Suggest he speak with hematology. Objective - Vital Signs/Intake and Output Vital Signs (last 24 hours): Temp Pulse Resp BP Pulse Ox 98.8 F 70 20 156/73 H 100 09/13/16 16:00 09/13/16 16:00 09/13/16 16:00 09/13/16 18:10 09/13/16 16:00 Intake and Output: 09/13/16 09/14/16 18:59 06:59 Intake Total 1037 Balance 1037 - Medications Medications: Current Medications Enalapril Maleate (Vasotec) 20 mg PO BID [facility] Last Admin: 09/13/16 18:10 Dose: 20 mg Epoetin Arturo (Procrit) 10,000 unit SC TTS [facility] Last Admin: 09/12/16 11:09 Dose: 10,000 unit Ferrous Sulfate (Feosol) 325 mg PO DAILY [facility] Last Admin: 09/13/16 10:07 Dose: 325 mg Guaifenesin (Mucinex La) 600 mg PO BID [facility] Last Admin: 09/13/16 18:10 Dose: 600 mg Ibuprofen (Motrin Tab) 400 mg PO Q4H PRN PRN Reason: Pain, moderate (4-7) Last Admin: 09/12/16 16:07 Dose: 400 mg Insulin Glargine (Lantus) 15 unit SC HS [facility] Last Admin: 09/13/16 21:35 Dose: 15 unit Lactic Acid (Lac-Hydrin 12% Lotion (225 G)) 0 gm TOP DAILY [facility] Last Admin: 09/13/16 10:07 Dose: 1 applic Pantoprazole Sodium (Protonix Ec Tab) 40 mg PO DAILY [facility] Last Admin: 09/13/16 10:07 Dose: 40 mg Zolpidem Tartrate (Ambien) 5 mg PO HS [facility] Last Admin: 09/13/16 21:35 Dose: 5 mg - Labs Labs: 09/12/16 11:41 09/11/16 08:22 PT 17.0 SECONDS (9.7-12.2) H 09/11/16 08:22 INR 1.5 09/11/16 08:22 APTT 29 SECONDS (21-34) 09/11/16 08:22 - Constitutional Appears: No Acute Distress - Head Exam Head Exam: NORMAL INSPECTION - Eye Exam Eye Exam: Normal appearance - ENT Exam ENT Exam: Normal Exam - Neck Exam Neck Exam: Normal Inspection - Respiratory Exam Respiratory Exam: Decreased Breath Sounds - Cardiovascular Exam Cardiovascular Exam: REGULAR RHYTHM - GI/Abdominal Exam GI & Abdominal Exam: Hyperactive Bowel Sounds - Rectal Exam Rectal Exam: Deferred - Exam External exam: NORMAL EXTERNAL EXAM - Extremities Exam Extremities Exam: Tenderness - Back Exam Back Exam: NORMAL INSPECTION - Neurological Exam Neurological Exam: Oriented x3 - Psychiatric Exam Psychiatric exam: Depressed - Skin Skin Exam: Dry Assessment and Plan (1) Anemia Status: Acute (2) Thrombocytopenia Status: Acute (3) Degenerative disc disease at L5-S1 level Status: Acute (4) Pleural effusion Status: Acute (5) Lymphedema of lower extremity Status: Acute (6) Osteoarthritis Status: Acute (7) Thrombophlebitis Status: Acute
[2016-09-14] MEDS: (Lantus) Insulin Glargine, Recombinant SC SCH (21:12)
[2016-09-14 21:54] LABS: BLOOD UREA NITROGEN 12 mg/dL (7-17); CALCIUM 8.2 mg/dl (8.6-10.4); CARBON DIOXIDE 26 mmol/L (22-30); CHLORIDE 105 mmol/L (98-107); GFR AFRICAN-AMERICAN > 60; GLUCOSE,RANDOM 90 mg/dL (65-105); POTASSIUM 3.6 mmol/L (3.6-5.2); SODIUM 137 mmol/L (132-148)
[2016-09-14 22:14] LABS: BASO % 1.1 % (0.0-2.0); HEMATOCRIT 24.5 % (34.0-47.0); LYMPH % 27.5 % (20.0-40.0); MEAN CELL VOLUME 92.2 fL (81.0-99.0); MEAN CORPUSCULAR HEMOGLOBIN 29.3 pg (27.0-31.0); MEAN CORPUSCULAR HGB CONC 31.8 g/dL (33.0-37.0); MEAN PLATELET VOLUME 10.6 fL (7.2-11.7); MONO # 0.7 K/uL (0.0-0.8); MONO % 20.4 % (0.0-10.0); NRBC % 1.6 % (0.0-2.0); PLATELET COUNT 37 K/uL (130-400); RED CELL DISTRIBUTION WIDTH 19.8 % (11.5-14.5); WHITE BLOOD COUNT 3.5 K/uL (4.8-10.8)
[2016-09-15 07:36] LABS: HEMATOCRIT 28.3 % (34.0-47.0); MEAN CORPUSCULAR HEMOGLOBIN 28.7 pg (27.0-31.0); MEAN CORPUSCULAR HGB CONC 31.8 g/dL (33.0-37.0); MEAN PLATELET VOLUME 8.9 fL (7.2-11.7); RED CELL DISTRIBUTION WIDTH 19.3 % (11.5-14.5); WHITE BLOOD COUNT 4.4 K/uL (4.8-10.8)
[2016-09-15 07:44] LABS: CHLORIDE 104 mmol/L (98-107); MEAN CELL VOLUME 90.1 fL (81.0-99.0); POTASSIUM 3.7 mmol/L (3.6-5.2); SODIUM 137 mmol/L (132-148)
[2016-09-15 07:47] LABS: BLOOD UREA NITROGEN 13 mg/dL (7-17); CARBON DIOXIDE 26 mmol/L (22-30); GFR AFRICAN-AMERICAN > 60; GLUCOSE,RANDOM 120 mg/dL (65-105)
[2016-09-15 07:48] LABS: CALCIUM 7.9 mg/dl (8.6-10.4)
[2016-09-15 08:20] VITALS: PULSE 75; TEMP 98; O2SAT 99
[2016-09-15 08:44] LABS: NEUTROPHIL 50 % (50-75); NUCLEATED RED BLOOD CELL 2 % (0-0); TOTAL CELLS COUNTED 100
[2016-09-15] MEDS: Pantoprazole 40 mg EC Tab PO SCH (09:33)
[2016-09-15] MEDS: Ammonium Lactate 12% Lotion (225 g) TOP SCH (09:34)
[2016-09-15] MEDS: guaiFENesin 600 mg ER Tab PO SCH ×2 (09:37→17:55)
--- NOTE | 2016-09-15 09:50 | CP.PCM.PN ---
Subjective - Date & Time of Evaluation Date of Evaluation: 09/14/16 Time of Evaluation: 13:20 - Subjective Subjective: Internet down Patient received another transfusion. Platlets still critically low. She is scheduled to go to rehab. Objective - Vital Signs/Intake and Output Vital Signs (last 24 hours): Temp Pulse Resp BP Pulse Ox 98.0 F 75 20 150/94 H 99 09/15/16 08:16 09/15/16 08:16 09/15/16 08:16 09/15/16 09:33 09/15/16 08:16 Intake and Output: 09/15/16 09/15/16 06:59 18:59 Intake Total 1030 Balance 1030 - Medications Medications: Current Medications Enalapril Maleate (Vasotec) 20 mg PO BID [facility] Last Admin: 09/15/16 09:33 Dose: 20 mg Epoetin Arturo (Procrit) 10,000 unit SC TTS [facility] Last Admin: 09/12/16 11:09 Dose: 10,000 unit Ferrous Sulfate (Feosol) 325 mg PO DAILY [facility] Last Admin: 09/15/16 09:34 Dose: 325 mg Guaifenesin (Mucinex La) 600 mg PO BID [facility] Last Admin: 09/15/16 09:37 Dose: 600 mg Ibuprofen (Motrin Tab) 400 mg PO Q4H PRN PRN Reason: Pain, moderate (4-7) Last Admin: 09/12/16 16:07 Dose: 400 mg Insulin Glargine (Lantus) 15 unit SC HS [facility] Last Admin: 09/14/16 21:12 Dose: 15 unit Lactic Acid (Lac-Hydrin 12% Lotion (225 G)) 0 gm TOP DAILY [facility] Last Admin: 09/15/16 09:34 Dose: 1 applic Pantoprazole Sodium (Protonix Ec Tab) 40 mg PO DAILY [facility] Last Admin: 09/15/16 09:33 Dose: 40 mg Zolpidem Tartrate (Ambien) 5 mg PO HS [facility] Last Admin: 09/14/16 21:13 Dose: 5 mg - Labs Labs: 09/15/16 07:14 09/15/16 07:14 PT 17.0 SECONDS (9.7-12.2) H 09/11/16 08:22 INR 1.5 09/11/16 08:22 APTT 29 SECONDS (21-34) 09/11/16 08:22 - Constitutional Appears: No Acute Distress - Head Exam Head Exam: NORMAL INSPECTION - Eye Exam Eye Exam: Normal appearance Pupil Exam: NORMAL ACCOMODATION - ENT Exam ENT Exam: Normal Exam - Neck Exam Neck Exam: Normal Inspection - Respiratory Exam Respiratory Exam: Decreased Breath Sounds - Cardiovascular Exam Cardiovascular Exam: REGULAR RHYTHM - GI/Abdominal Exam GI & Abdominal Exam: Hyperactive Bowel Sounds - Rectal Exam Rectal Exam: Deferred - Exam External exam: NORMAL EXTERNAL EXAM - Extremities Exam Extremities Exam: Pedal Edema - Back Exam Back Exam: NORMAL INSPECTION - Neurological Exam Neurological Exam: Oriented x3 - Psychiatric Exam Psychiatric exam: Depressed - Skin Skin Exam: Dry Assessment and Plan (1) Anemia Status: Acute (2) Thrombocytopenia Status: Acute (3) Degenerative disc disease at L5-S1 level Status: Acute (4) Pleural effusion Status: Acute (5) Lymphedema of lower extremity Status: Acute (6) Osteoarthritis Status: Acute (7) Thrombophlebitis Status: Acute
--- NOTE | 2016-09-15 10:54 | PN ---
DATE: 09/15/2016 PHYSICAL EXAMINATION: GENERAL: The patient is alert, oriented. VITAL SIGNS: She is afebrile, blood pressure 152/74, pulse 74 per minute, respiration 20, hemoglobin oxygen saturation of 99%. Her dyspnea has improved. There is no chest pain. HEART: Regular, no gallop rhythm. LUNGS: Diminished breath sounds over lung bases, no rhonchi. ABDOMEN: Soft. EXTREMITIES: Leg swelling no change. IMPRESSION: Respiratory insufficiency, hypertensive cardiovascular disease, anemia, bronchitis, arth ritis, diabetes mellitus, thrombocytopenia. PLAN: To continue with the current medications and current measures and followup with the hematologi st. Abundio Silva MD cc: [id number] TT: 09/15/2016 10:53:14 Confirmation # [id number] Dictation # [id number]
--- NOTE | 2016-09-15 14:41 | CP.PCM.PN ---
Subjective - Date & Time of Evaluation Date of Evaluation: 09/15/16 Time of Evaluation: 14:31 - Subjective Subjective: The patient is sitting OOB to chair, is standing up and taking a few steps, had a lengthy discussion regarding rehab. She is reluctant to go to rehab, but will need weekly labs, Procrit weekly. At this time she is scheduled to go to rehab facility Objective - Vital Signs/Intake and Output Vital Signs (last 24 hours): Temp Pulse Resp BP Pulse Ox 98.0 F 75 20 150/94 H 99 09/15/16 08:16 09/15/16 08:16 09/15/16 08:16 09/15/16 09:33 09/15/16 08:16 Intake and Output: 09/15/16 09/15/16 06:59 18:59 Intake Total 1030 Balance 1030 - Medications Medications: Current Medications Enalapril Maleate (Vasotec) 20 mg PO BID [facility] Last Admin: 09/15/16 09:33 Dose: 20 mg Epoetin Arturo (Procrit) 10,000 unit SC TTS [facility] Last Admin: 09/12/16 11:09 Dose: 10,000 unit Ferrous Sulfate (Feosol) 325 mg PO DAILY [facility] Last Admin: 09/15/16 09:34 Dose: 325 mg Guaifenesin (Mucinex La) 600 mg PO BID [facility] Last Admin: 09/15/16 09:37 Dose: 600 mg Ibuprofen (Motrin Tab) 400 mg PO Q4H PRN PRN Reason: Pain, moderate (4-7) Last Admin: 09/12/16 16:07 Dose: 400 mg Insulin Glargine (Lantus) 15 unit SC HS [facility] Last Admin: 09/14/16 21:12 Dose: 15 unit Lactic Acid (Lac-Hydrin 12% Lotion (225 G)) 0 gm TOP DAILY [facility] Last Admin: 09/15/16 09:34 Dose: 1 applic Pantoprazole Sodium (Protonix Ec Tab) 40 mg PO DAILY [facility] Last Admin: 09/15/16 09:33 Dose: 40 mg Zolpidem Tartrate (Ambien) 5 mg PO HS [facility] Last Admin: 09/14/16 21:13 Dose: 5 mg - Labs Labs: 09/15/16 07:14 09/15/16 07:14 PT 17.0 SECONDS (9.7-12.2) H 09/11/16 08:22 INR 1.5 09/11/16 08:22 APTT 29 SECONDS (21-34) 09/11/16 08:22
--- NOTE | 2016-09-15 17:19 | CP.PCM.PN ---
Subjective - Date & Time of Evaluation Date of Evaluation: 09/15/16 Time of Evaluation: 11:00 - Subjective Subjective: Alert, awake, no sob or chest pains. Objective - Vital Signs/Intake and Output Vital Signs (last 24 hours): Temp Pulse Resp BP Pulse Ox 98.0 F 75 20 150/94 H 99 09/15/16 08:16 09/15/16 08:16 09/15/16 08:16 09/15/16 09:33 09/15/16 08:16 Intake and Output: 09/15/16 09/15/16 06:59 18:59 Intake Total 1030 Balance 1030 - Medications Medications: Current Medications Enalapril Maleate (Vasotec) 20 mg PO BID [facility] Last Admin: 09/15/16 09:33 Dose: 20 mg Epoetin Arturo (Procrit) 10,000 unit SC TTS [facility] Last Admin: 09/12/16 11:09 Dose: 10,000 unit Ferrous Sulfate (Feosol) 325 mg PO DAILY [facility] Last Admin: 09/15/16 09:34 Dose: 325 mg Guaifenesin (Mucinex La) 600 mg PO BID [facility] Last Admin: 09/15/16 09:37 Dose: 600 mg Ibuprofen (Motrin Tab) 400 mg PO Q4H PRN PRN Reason: Pain, moderate (4-7) Last Admin: 09/12/16 16:07 Dose: 400 mg Insulin Glargine (Lantus) 15 unit SC HS [facility] Last Admin: 09/14/16 21:12 Dose: 15 unit Lactic Acid (Lac-Hydrin 12% Lotion (225 G)) 0 gm TOP DAILY [facility] Last Admin: 09/15/16 09:34 Dose: 1 applic Pantoprazole Sodium (Protonix Ec Tab) 40 mg PO DAILY [facility] Last Admin: 09/15/16 09:33 Dose: 40 mg Zolpidem Tartrate (Ambien) 5 mg PO HS [facility] Last Admin: 09/14/16 21:13 Dose: 5 mg - Labs Labs: 09/15/16 07:14 09/15/16 07:14 PT 17.0 SECONDS (9.7-12.2) H 09/11/16 08:22 INR 1.5 09/11/16 08:22 APTT 29 SECONDS (21-34) 05/15/17 08:22 Assessment and Plan - Assessment and Plan (Free Text) Assessment: Patient is seen and examined. Awake, alert, out of bed to chair, no sob or chest pains. Cleared by DR Hay and DR Foster for discharge to [facility] as per family request. Coumadin to be discontinued as per DR Foster.
[2016-09-15 18:01] VITALS: BP 148/76
--- NOTE | 2016-09-15 22:07 | CP.PCM.PN ---
Subjective - Date & Time of Evaluation Date of Evaluation: 09/15/16 Time of Evaluation: 13:05 - Subjective Subjective: Patient is alert and responsive. Platlets [id number]. Patient will be transferesd to [facility]. Objective - Vital Signs/Intake and Output Vital Signs (last 24 hours): Temp Pulse Resp BP Pulse Ox 98.0 F 75 20 148/76 99 09/15/16 08:16 09/15/16 08:16 09/15/16 08:16 09/15/16 17:55 09/15/16 08:16 - Medications Medications: Current Medications Enalapril Maleate (Vasotec) 20 mg PO BID [facility] Last Admin: 09/15/16 17:55 Dose: 20 mg Epoetin Arturo (Procrit) 10,000 unit SC TTS [facility] Last Admin: 09/12/16 11:09 Dose: 10,000 unit Ferrous Sulfate (Feosol) 325 mg PO DAILY [facility] Last Admin: 09/15/16 09:34 Dose: 325 mg Guaifenesin (Mucinex La) 600 mg PO BID [facility] Last Admin: 09/15/16 17:55 Dose: 600 mg Ibuprofen (Motrin Tab) 400 mg PO Q4H PRN PRN Reason: Pain, moderate (4-7) Last Admin: 09/12/16 16:07 Dose: 400 mg Insulin Glargine (Lantus) 15 unit SC HS [facility] Last Admin: 09/14/16 21:12 Dose: 15 unit Lactic Acid (Lac-Hydrin 12% Lotion (225 G)) 0 gm TOP DAILY [facility] Last Admin: 09/15/16 09:34 Dose: 1 applic Pantoprazole Sodium (Protonix Ec Tab) 40 mg PO DAILY [facility] Last Admin: 09/15/16 09:33 Dose: 40 mg Zolpidem Tartrate (Ambien) 5 mg PO HS [facility] Last Admin: 09/14/16 21:13 Dose: 5 mg - Labs Labs: 09/15/16 07:14 09/15/16 07:14 PT 17.0 SECONDS (9.7-12.2) H 09/11/16 08:22 INR 1.5 09/11/16 08:22 APTT 29 SECONDS (21-34) 09/11/16 08:22 - Constitutional Appears: Younger Than Stated Age - Head Exam Head Exam: NORMOCEPHALIC - Eye Exam Eye Exam: Normal appearance Pupil Exam: NORMAL ACCOMODATION - ENT Exam ENT Exam: Normal Exam - Neck Exam Neck Exam: Normal Inspection - Respiratory Exam Respiratory Exam: Decreased Breath Sounds - Cardiovascular Exam Cardiovascular Exam: REGULAR RHYTHM - GI/Abdominal Exam GI & Abdominal Exam: Normal Bowel Sounds - Rectal Exam Rectal Exam: Deferred - Exam External exam: NORMAL EXTERNAL EXAM - Extremities Exam Extremities Exam: Joint Swelling - Back Exam Back Exam: NORMAL INSPECTION - Neurological Exam Neurological Exam: Oriented x3 - Psychiatric Exam Psychiatric exam: Depressed - Skin Skin Exam: Dry Assessment and Plan (1) Anemia Status: Acute (2) Thrombocytopenia Status: Acute (3) Degenerative disc disease at L5-S1 level Status: Acute (4) Pleural effusion Status: Acute (5) Lymphedema of lower extremity Status: Acute (6) Osteoarthritis Status: Acute (7) Thrombophlebitis Status: Acute
[2016-09-15] MEDS: (Lantus) Insulin Glargine, Recombinant SC SCH (22:42)
--- NOTE | 2016-09-26 22:14 | CP.PCM.DIS ---
Provider - Provider Date of Admission: 09/06/16 01:48 Attending physician: Junito Foster MD Time Spent in preparation of Discharge (in minutes): 26 Diagnosis - Discharge Diagnosis (1) Anemia Status: Acute (2) Thrombocytopenia Status: Acute (3) Degenerative disc disease at L5-S1 level Status: Acute Priority: Medium (4) Pleural effusion Status: Acute (5) Lymphedema of lower extremity Status: Acute (6) Osteoarthritis Status: Acute Priority: Medium (7) Thrombophlebitis Status: Acute Priority: Medium Hospital Course - Lab Results Lab Results: Most Recent Lab Values WBC 4.4 K/uL (4.8-10.8) L 09/15/16 07:14 RBC 3.14 Mil/uL (3.80-5.20) L 09/15/16 07:14 Hgb 9.0 g/dL (11.0-16.0) L 09/15/16 07:14 Hct 28.3 % (34.0-47.0) L 09/15/16 07:14 MCV 90.1 fL (81.0-99.0) D 09/15/16 07:14 MCH 28.7 pg (27.0-31.0) 09/15/16 07:14 MCHC 31.8 g/dL (33.0-37.0) L 09/15/16 07:14 RDW 19.3 % (11.5-14.5) H 09/15/16 07:14 Plt Count 30 K/uL (130-400) L* 09/15/16 07:14 MPV 8.9 fL (7.2-11.7) 09/15/16 07:14 Neut % (Auto) 51.0 % (50.0-75.0) 09/14/16 04:00 Lymph % (Auto) 27.5 % (20.0-40.0) 09/14/16 04:00 [place] % (Auto) 20.4 % (0.0-10.0) H 09/14/16 04:00 Eos % (Auto) 0.0 % (0.0-4.0) 09/14/16 04:00 Baso % (Auto) 1.1 % (0.0-2.0) 09/14/16 04:00 Neut # 1.8 K/uL (1.8-7.0) 09/14/16 04:00 Lymph # 1.0 K/uL (1.0-4.3) 09/14/16 04:00 [place] # 0.7 K/uL (0.0-0.8) 09/14/16 04:00 Eos # 0.0 K/uL (0.0-0.7) 09/14/16 04:00 Baso # 0.0 K/uL (0.0-0.2) 09/14/16 04:00 Neutrophils % (Manual) 50 % (50-75) 09/14/16 04:00 Lymphocytes % (Manual) 46 % (20-40) H 09/14/16 04:00 Reactive Lymphs % 4 % (0-0) H 09/06/16 00:45 Monocytes % (Manual) 4 % (0-10) 09/14/16 04:00 Nucleated RBC % 2 % (0-0) H 09/14/16 04:00 Differential Comment 09/15/16 07:14 Platelet Estimate Decreased (NORMAL) L 09/14/16 04:00 Polychromasia Slight 09/14/16 04:00 Hypochromasia (manual) Moderate 09/14/16 04:00 Poikilocytosis (manual Slight 09/14/16 04:00 Anisocytosis (manual) Slight 09/14/16 04:00 Microcytosis (manual) Slight 09/14/16 04:00 Macrocytosis (manual) Slight 09/14/16 04:00 Smear Path Review 09/07/16 11:29 Retic Count 1.6 % (0.5-1.5) H 09/08/16 08:13 PT 17.0 SECONDS (9.7-12.2) H 09/11/16 08:22 INR 1.5 09/11/16 08:22 APTT 29 SECONDS (21-34) 09/11/16 08:22 Fibrinogen 445 mg/dL (200-400) H 09/11/16 08:22 Puncture Site Lra 09/08/16 08:58 pCO2 21 mm/Hg (35-45) L 09/08/16 08:58 pO2 115 mm/Hg (80-100) H 09/08/16 08:58 HCO3 19.3 mmol/L (21-28) L 09/08/16 08:58 ABG pH 7.49 (7.35-7.45) H 09/08/16 08:58 ABG Total CO2 16.6 mmol/L (22-28) L 09/08/16 08:58 ABG O2 Saturation 102.8 % (95-98) H 09/08/16 08:58 ABG Base Excess -7.2 mmol/L (-2.0-3.0) L 09/08/16 08:58 ABG Hemoglobin 3.9 g/dL (11.7-17.4) L 09/08/16 08:58 ABG Carboxyhemoglobin 4.5 % (0.5-1.5) H 09/08/16 08:58 POC ABG HHb (Measured) -2.6 % (0.0-5.0) L 09/08/16 08:58 ABG Methemoglobin 2.7 % (0.0-3.0) 09/08/16 08:58 Inderjit Test N/a 09/08/16 08:58 A-a O2 Difference 8.0 mm/Hg 09/08/16 08:58 Respiratory Index 0.1 09/08/16 08:58 Hgb O2 Saturation 95.4 % (95.0-98.0) 09/08/16 08:58 FiO2 21.0 % 09/08/16 08:58 Crit Value Called To Nurse jason 09/08/16 08:58 Crit Value Called By Casey wright 09/08/16 08:58 Crit Value Read Back Y 09/08/16 08:58 Blood Gas Notified Time 907 09/08/16 08:58 Sodium 137 mmol/L (132-148) 09/15/16 07:14 Potassium 3.7 mmol/L (3.6-5.2) 09/15/16 07:14 Chloride 104 mmol/L (98-107) 09/15/16 07:14 Carbon Dioxide 26 mmol/L (22-30) 09/15/16 07:14 Anion Gap 12 (10-20) 09/15/16 07:14 BUN 13 mg/dL (7-17) 09/15/16 07:14 Creatinine 0.8 MG/DL (0.7-1.2) 09/15/16 07:14 Est GFR ( Amer) > 60 09/15/16 07:14 Est GFR (Non-Af Amer) > 60 09/15/16 07:14 POC Glucose (mg/dL) 200 mg/dL (65-110) H 09/15/16 21:51 Random Glucose 120 mg/dL (65-105) H 09/15/16 07:14 Calcium 7.9 mg/dl (8.6-10.4) L 09/15/16 07:14 Ferritin 406.0 ng/mL 09/08/16 08:13 Total Bilirubin 0.8 mg/dL (0.2-1.3) 09/11/16 08:22 AST 16 U/L (14-36) 09/11/16 08:22 ALT 12 U/L (9-52) 09/11/16 08:22 Alkaline Phosphatase 102 U/L (38-126) 09/11/16 08:22 Lactate Dehydrogenase 766 U/L (313-618) H 09/08/16 08:13 Total Protein 8.1 g/dL (6.3-8.3) 09/11/16 08:22 Albumin 2.9 g/dL (3.5-5.0) L 09/11/16 08:22 Globulin 5.2 gm/dL (2.2-3.9) H 09/11/16 08:22 Albumin/Globulin Ratio 0.6 (1.0-2.1) L 09/11/16 08:22 Free T4 1.82 ng/dL (0.78-2.19) 09/07/16 08:02 TSH 3rd Generation 1.99 mIU/L (0.46-4.68) 09/07/16 08:02 Blood Type O NEGATIVE 09/11/16 19:41 Antibody Screen Negative 09/11/16 19:41 Discharge Exam - Head Exam Head Exam: NORMOCEPHALIC - Eye Exam Eye Exam: Normal appearance - ENT Exam ENT Exam: Normal Exam - Neck Exam Neck exam: Normal Inspection - Respiratory Exam Respiratory Exam: Decreased Breath Sounds - Cardiovascular Exam Cardiovascular Exam: REGULAR RHYTHM - GI/Abdominal Exam GI & Abdominal Exam: Normal Bowel Sounds - Rectal Exam Rectal Exam: Deferred - Exam External exam: NORMAL EXTERNAL EXAM - Neurological Exam Neurological exam: Alert - Psychiatric Exam Psychiatric exam: Depressed - Skin Skin Exam: Dry Discharge Plan - Follow Up Plan Condition: STABLE Disposition: REHAB FACILITY/REHAB UNIT Instructions: Iron Deficiency Anemia (DC), Anemia (DC), Thrombocytopenia (DC) Additional Instructions: discharge to [facility] as per DR Foster f/u with DR daugherty in 1 week CBC, BMP, Q WEEK START SUNDAY Referrals: Junito Foster MD [Staff Provider] - Olivia Solo MD [Staff Provider] -
== END 2016-09-15 23:35 | DRG 809 ==
LOC: C.ER 00:18 → C.9E 01:48 → C.3T 02:44
PROVIDERS: ADMIT Internal Medicine; ATTEND Internal Medicine
PROC: 30233N1 Transfusion of Nonautologous Red Blood Cells into Peripheral Vein, Percutaneous Approach (ICD-10-PCS; principal; 2016-09-06)
PROC: 02HV33Z Insertion of Infusion Device into Superior Vena Cava, Percutaneous Approach (ICD-10-PCS; 2016-09-13)
DX: D61.818 Other pancytopenia (principal); J90 Pleural effusion, not elsewhere classified; I11.9 Hypertensive heart disease without heart failure; D46.9 Myelodysplastic syndrome, unspecified; E11.9 Type 2 diabetes mellitus without complications; I89.0 Lymphedema, not elsewhere classified; M47.9 Spondylosis, unspecified; M51.37 Other intervertebral disc degeneration, lumbosacral region; Z90.49 Acquired absence of other specified parts of digestive tract; J40 Bronchitis, not specified as acute or chronic; Z79.4 Long term (current) use of insulin

== ENCOUNTER 2016-10-10 23:52 | Emergency (ER) | payer MEDICARE, BC ==
[2016-10-10 23:53] VITALS: BMI 47.0
--- NOTE | 2016-10-11 01:42 | C.PDOC ---
History Of Present Illness pt with low grade fever and chills, some mild greenish productive cough. speaking in complete sentences. No cp or palpitations Time Seen by Provider: 10/11/16 01:42 Chief Complaint (Nursing): Fever History Per: Patient History/Exam Limitations: no limitations Onset/Duration Of Symptoms: Days Current Symptoms Are (Timing): Still Present Sick Contacts (Context): None Associated Symptoms: Fever, Chills, Cough, Myalgias Ear Symptoms: Bilateral: None Severity: Mild Pain Scale Rating Of: 3 Recent travel outside of the [place]: No Additional History Per: Patient Past Medical History Reviewed: Historical Data, Nursing Documentation, Vital Signs Vital Signs: Last Vital Signs Temp 100.0 F H 10/11/16 02:01 Pulse 99 H 10/11/16 00:29 Resp 20 10/11/16 00:29 BP 166/62 H 10/11/16 00:29 Pulse Ox 94 L 10/11/16 04:27 - Medical History PMH: Anemia, HTN, Pneumonia Denies: Chronic Kidney Disease Surgical History: Cholecystectomy (in 2010) - [facility] Procedures CENTRAL VENOUS CATHETER PLACEMENT WITH GUIDANCE (02/16/14) INSERTION OF INFUSION DEV INTO SUP VENA CAVA, PERC APPROACH (09/06/16) PACKED CELL TRANSFUSION (02/16/14) TRANSFUSE NONAUT RED BLOOD CELLS IN PERIPH VEIN, PERC (09/06/16) VACCINATION NEC (02/16/14) Family History: States: No Known Family Hx - Social History Hx Tobacco Use: No Hx Alcohol Use: No Hx Substance Use: No - Immunization History Hx Tetanus Toxoid Vaccination: No Hx Influenza Vaccination: Yes Hx Pneumococcal Vaccination: Yes Review Of Systems Constitutional: Positive for: Fever. Negative for: Chills Eyes: Negative for: Redness ENT: Negative for: Throat Pain Cardiovascular: Negative for: Chest Pain, Palpitations Respiratory: Positive for: Cough, Shortness of Breath (mild). Negative for: Wheezing Gastrointestinal: Negative for: Nausea, Vomiting, Abdominal Pain Genitourinary: Negative for: Dysuria Musculoskeletal: Negative for: Back Pain Skin: Positive for: Other (legs) Neurological: Negative for: Weakness Psych: Negative for: Anxiety Physical Exam - Physical Exam Appears: Non-toxic, No Acute Distress Skin: Warm, Dry Head: Normacephalic Eye(s): bilateral: Normal Inspection Oral Mucosa: Moist Throat: No Erythema Neck: Trachea Midline, Supple Chest: Symmetrical Cardiovascular: Rhythm Regular Respiratory: No Rales, Rhonchi (at bases) Gastrointestinal/Abdominal: Soft, No Tenderness Back: No CVA Tenderness Extremity: Pedal Edema, Swelling, Other (elephathiasis and poor vasculasr venous stasis skin changed, chronic) Extremity: Bilateral: Atraumatic Neurological/Psych: Oriented x3, Normal Speech, Normal Cognition Gait: With Assistance ED Course And Treatment - Laboratory Results Result Diagrams: 10/11/16 01:54 10/11/16 01:54 ECG: Interpreted By Me, Viewed By Me ECG Rhythm: Sinus Rhythm (80), Nonspecific Changes O2 Sat by Pulse Oximetry: 94 Pulse Ox Interpretation: Normal - Radiology CXR: Interpreted by Me, Viewed By Me CXR Interpretation: Yes: Cardiomegaly, Other (mild vasc congestion). No: Infiltrates Reevaluation Time: 04:31 Reassessment Condition: Improved Disposition Counseled Patient/Family Regarding: Studies Performed, Diagnosis, Need For Followup, Rx Given - Disposition Referrals: Junito Foster MD [Primary Care Provider] - Disposition: HOME/ ROUTINE Disposition Time: 01:42 Condition: FAIR Additional Instructions: Please return if symptoms recur Prescriptions: Albuterol HFA [Ventolin HFA 90 mcg/actuation (8 g)] 2 puff IH [id number] #1 puff Azithromycin [Zithromax Tri-Osman] 500 mg PO DAILY #3 tablet Spacer, Inhalation [Aerochamber] 1 dev IH QID #1 dev Instructions: Acute Bronchitis (ED), Thrombocytopenia (ED) - Clinical Impression Clinical Impression: Fever, Bronchitis, Thrombocytopenia
[2016-10-11] MEDS ORDERED: Sodium Chloride 0.9% 1,000 ML IV SCH (01:45)
[2016-10-11 01:57] LABS: BASO % 0.2 % (0.0-2.0); HEMATOCRIT 21.9 % (34.0-47.0); LYMPH % 6.6 % (20.0-40.0); MEAN CELL VOLUME 90.4 fL (81.0-99.0); MEAN CORPUSCULAR HEMOGLOBIN 27.5 pg (27.0-31.0); MEAN CORPUSCULAR HGB CONC 30.4 g/dL (33.0-37.0); MEAN PLATELET VOLUME 12.9 fL (7.2-11.7); MONO # 2.4 K/uL (0.0-0.8); MONO % 16.3 % (0.0-10.0); NRBC % 1.2 % (0.0-2.0); RED CELL DISTRIBUTION WIDTH 21.1 % (11.5-14.5)
[2016-10-11] MEDS ORDERED: Sodium Chloride 0.9% 1,000 ML ONE (01:57)
[2016-10-11 02:04] LABS: INR 1.4
[2016-10-11 02:08] LABS: VENOUS BLOOD GAS BASE EXCESS -1.1 mmol/L (0.0-2.0); VENOUS BLOOD GAS PCO2 38 mmHg (40-60)
[2016-10-11 02:13] LABS: CHLORIDE 110 mmol/L (98-107); POTASSIUM 3.7 mmol/L (3.6-5.2); SODIUM 141 mmol/L (132-148)
[2016-10-11 02:16] LABS: ALB/GLOB RATIO 0.6 (1.0-2.1); ALKALINE PHOSPHATASE 167 U/L (38-126); ALT/SGPT 15 U/L (9-52); AST/SGOT 21 U/L (14-36); BILIRUBIN,TOTAL 1.5 mg/dL (0.2-1.3); BLOOD UREA NITROGEN 16 mg/dL (7-17); CALCIUM 8.4 mg/dl (8.6-10.4); CARBON DIOXIDE 22 mmol/L (22-30); GFR AFRICAN-AMERICAN > 60; GLUCOSE,RANDOM 119 mg/dL (65-105); TOTAL PROTEIN 8.5 g/dL (6.3-8.3)
[2016-10-11 02:19] LABS: PLATELET COUNT 28 K/uL (130-400)
[2016-10-11 03:04] LABS: NEUTROPHIL 78 % (50-75); NUCLEATED RED BLOOD CELL 2 % (0-0); TOTAL CELLS COUNTED 100
[2016-10-11 03:05] LABS: LARGE PLATELETS PRESENT
[2016-10-11 04:39] LABS: RBC URINE 43 /hpf (0-3); URINE BACTERIA MANY (<OCC); URINE BILIRUBIN NEGATIVE (NEGATIVE); URINE BLOOD 3+ (NEGATIVE); URINE COLOR Amber (YELLOW); URINE GLUCOSE (UA) NORMAL (Normal); URINE KETONE NEGATIVE (NEGATIVE); URINE LEUKOCYTE ESTERASE NEG Leu/uL (Negative); URINE PROTEIN 2+ mg/dL (NEGATIVE); WBC URINE 16 /hpf (0-5)
[2016-10-11 07:29] VITALS: BP 144/73; PULSE 79; RESP 16; TEMP 98.4; O2SAT 96
--- NOTE | 2016-10-11 09:52 | RAD ---
PROCEDURE: CHEST RADIOGRAPH, 1 VIEW HISTORY: Shortness of breath COMPARISON: 09/11/2016. FINDINGS: The right PICC line terminates in the SVC. LUNGS: There is interval mild improvement in pulmonary venous congestion. There is no lobar pneumonia. PLEURA: No pneumothorax or pleural fluid seen. CARDIOVASCULAR: There is persistent mild cardiomegaly. OSSEOUS STRUCTURES: No significant abnormalities. VISUALIZED UPPER ABDOMEN: Normal. OTHER FINDINGS: None. IMPRESSION: Right PICC line terminates in the SVC. Improving pulmonary venous congestion. Persistent mild cardiomegaly.
--- NOTE | 2016-10-16 20:50 | CARD ---
APPROVED REPORT EKG Measurement Heart [id number] <Conclusion> Normal sinus rhythm Normal ECG
== END 2016-10-11 07:35 | disposition home or self-care (01) ==
LOC: C.ER 23:52 → SUPCPDRO 23:52 → C.ER 10-11 07:35
DX: J40 Bronchitis, not specified as acute or chronic (principal); D69.6 Thrombocytopenia, unspecified; R78.81 Bacteremia; R50.81 Fever presenting with conditions classified elsewhere
CPT/HCPCS: 72HRC; 87181

== ENCOUNTER 2016-10-12 10:54 | Inpatient (IN) | payer MEDICARE, BC ==
[2016-10-12 10:55] VITALS: BMI 47.0
--- NOTE | 2016-10-12 11:47 | C.PDOC ---
History Of Present Illness 75 year old patient, with a past medical history of hypertension, anemia, and pneumonia, was seen in the ED 2 days ago for a fever. She was discharged home with Z-pack. Last night, the ED received a call from the microbiology lab regarding positive result in blood culture for gram negative rods. Dr. Vines called Dr. Foster and the patient last night. He told the patient to return to the ED. A second call came from the microbiology lab for a positive result of gram positive cocci. Patient returns to the ED today for further evaluation. Patient denies fever, nausea, vomiting, shortness of breath, dizziness, or headache. Time Seen by Provider: 10/12/16 11:32 Chief Complaint (Nursing): Medical Clearance History Per: Patient History/Exam Limitations: no limitations Onset/Duration Of Symptoms: Other Severity: None Pain Scale Rating Of: 0 Reports Recently: Seen In ED Recent travel outside of the [place]: No Additional History Per: Prior Records Past Medical History Reviewed: Historical Data, Nursing Documentation, Vital Signs Vital Signs: Last Vital Signs Temp 98.5 F 10/12/16 17:45 Pulse 80 10/12/16 17:45 Resp 20 10/12/16 17:45 BP 159/67 H 10/12/16 17:45 Pulse Ox 98 10/12/16 17:45 - Medical History PMH: Anemia, HTN, Pneumonia Surgical History: Cholecystectomy (in 2010) - [facility] Procedures CENTRAL VENOUS CATHETER PLACEMENT WITH GUIDANCE (02/16/14) INSERTION OF INFUSION DEV INTO SUP VENA CAVA, PERC APPROACH (09/06/16) PACKED CELL TRANSFUSION (02/16/14) TRANSFUSE NONAUT RED BLOOD CELLS IN PERIPH VEIN, PERC (09/06/16) VACCINATION NEC (02/16/14) Family History: States: Unknown Family Hx - Social History Hx Tobacco Use: No Hx Alcohol Use: No Hx Substance Use: No - Immunization History Hx Tetanus Toxoid Vaccination: No Hx Influenza Vaccination: Yes Hx Pneumococcal Vaccination: Yes Review Of Systems Except As Marked, All Systems Reviewed And Found Negative. Constitutional: Negative for: Fever Respiratory: Negative for: Shortness of Breath Gastrointestinal: Negative for: Nausea, Vomiting Neurological: Negative for: Headache, Dizziness Physical Exam - Physical Exam Appears: Non-toxic, No Acute Distress Skin: Warm, Dry Head: Atraumatic, Normacephalic Eye(s): bilateral: Normal Inspection Oral Mucosa: Moist Neck: Normal ROM, Supple Chest: Symmetrical Cardiovascular: Rhythm Regular Respiratory: Normal Breath Sounds, No Rales, No Rhonchi, No Wheezing Gastrointestinal/Abdominal: Soft, No Tenderness Back: Normal Inspection, No CVA Tenderness Extremity: Normal ROM Extremity: Bilateral: Atraumatic Neurological/Psych: Oriented x3, Normal Speech, Normal Cognition Gait: Steady ED Course And Treatment - Laboratory Results Result Diagrams: 10/12/16 13:17 10/12/16 13:17 O2 Sat by Pulse Oximetry: 96 (room air) Pulse Ox Interpretation: Normal Progress Note: Plan: Labs, Chest x-ray, IV fluids, Zosyn. Progress: Labs sent again. Hgb 6.3. Blood transfusion ordered. Case discussed with Dr. Foster regarding admission. Patient was accepted for full admission. Disposition - Disposition Disposition: HOSPITALIZED Disposition Time: 14:06 Condition: FAIR - Clinical Impression Clinical Impression: Anemia, Positive blood culture, UTI (urinary tract infection) - PA / ROLL CLAMP OPERATOR / Resident Statement MD/DO has reviewed & agrees with the documentation as recorded. - Scribe Statement The provider has reviewed the documentation as recorded by the Scribe Christelle Ferreira All medical record entries made by the Scribe were at my direction and personally dictated by me. I have reviewed the chart and agree that the record accurately reflects my personal performance of the history, physical exam, medical decision making, and the department course for this patient. I have also personally directed, reviewed, and agree with the discharge instructions and disposition. Decision To Admit - Pt Status Changed To: Hospital Disposition Of: Inpatient - Admit Certification Admit to Inpatient:: After my assessment, the patient will require hospitalization for at least two midnights. This is because of the severity of symptoms shown, intensity of services needed, and/or the medical risk in this patient being treated as an outpatient. - InPatient: Physician Admission Certification: I certify that this patient requires 2 or more midnights of care for the following reason:: Patient with pos blood culture will need more than 2 days of IV antibiotics. - . Bed Request Type: Regular Patient Diagnosis: Anemia, Positive blood culture, UTI (urinary tract infection)
[2016-10-12] MEDS ORDERED: Sodium Chloride 0.9% 500 ML IV STA (13:02)
[2016-10-12] MEDS ORDERED: Piperacillin/Tazobact 3.375 gm 100 ML IV STA (13:03)
[2016-10-12 13:28] LABS: MEAN CELL VOLUME 89.7 fL (81.0-99.0); MEAN CORPUSCULAR HEMOGLOBIN 28.1 pg (27.0-31.0); MEAN CORPUSCULAR HGB CONC 31.3 g/dL (33.0-37.0); MEAN PLATELET VOLUME 12.5 fL (7.2-11.7); RBC 2.25 Mil/uL (3.80-5.20); RED CELL DISTRIBUTION WIDTH 22.1 % (11.5-14.5); WHITE BLOOD COUNT 6.9 K/uL (4.8-10.8)
[2016-10-12 13:30] LABS: ALBUMIN 2.9 g/dL (3.5-5.0)
[2016-10-12 13:33] LABS: ALB/GLOB RATIO 0.6 (1.0-2.1); AST/SGOT 16 U/L (14-36); GFR AFRICAN-AMERICAN > 60; GFR NON-AFRICAN AMERICAN > 60
[2016-10-12 13:34] LABS: ALT/SGPT 15 U/L (9-52); BLOOD UREA NITROGEN 17 mg/dL (7-17); CALCIUM 8.3 mg/dl (8.6-10.4)
[2016-10-12 13:40] LABS: HEMOGLOBIN 6.3 g/dL (11.0-16.0)
--- NOTE | 2016-10-12 14:03 | RAD ---
HISTORY: positive blood culture COMPARISON: Chest x-ray performed 10/11/16 TECHNIQUE: Chest, one view. FINDINGS: Artifact from patient's clothing projects over the right axilla. LUNGS: Right-sided PICC extends expected location of the SVC. Mild to moderate interstitial prominence may reflect edema or infection. Please note that chest x-ray has limited sensitivity for the detection of pulmonary masses. PLEURA: Small left pleural effusion. No definite pneumothorax . CARDIOVASCULAR: Cardiomegaly. OSSEOUS STRUCTURES: Degenerative changes. VISUALIZED UPPER ABDOMEN: Unremarkable. OTHER FINDINGS: None. IMPRESSION: Right-sided PICC extends expected location of the SVC. Mild to moderate interstitial prominence may reflect edema or infection. Small left pleural effusion. Cardiomegaly.
[2016-10-12] MEDS ORDERED: Sodium Chloride 0.9% 500 ML IV ONE (14:39)
[2016-10-12] MEDS ORDERED: Piperacillin/Tazobact 3.375 gm 100 ML IVPB ONE (14:39)
[2016-10-12 14:47] LABS: LYMPH # 1.4 K/uL (1.0-4.3); MONO # 0.5 K/uL (0.0-0.8); NEUT # 4.8 K/uL (1.8-7.0)
[2016-10-12 16:28] LABS: SQUAMOUS EPITHIAL 11 /hpf (0-5); URINE BACTERIA MANY (<OCC); URINE BILIRUBIN NEGATIVE (NEGATIVE); URINE BLOOD 3+ (NEGATIVE); URINE CLARITY Hazy (Clear); URINE COLOR Amber (YELLOW); URINE GLUCOSE (UA) NORMAL (Normal); URINE LEUKOCYTE ESTERASE NEG Leu/uL (Negative); URINE NITRATE NEGATIVE (NEGATIVE); URINE PROTEIN 1+ mg/dL (NEGATIVE)
[2016-10-12] MEDS ORDERED: Albuterol HFA 90 mcg/actuation (8 g) INH PRN (21:07)
[2016-10-12] MEDS: (Lantus) Insulin Glargine, Recombinant SC SCH (22:24)
--- NOTE | 2016-10-12 23:14 | CP.PCM.HP ---
History of Present Illness - History of Present Illness History of Present Illness: 75 year old female who was called back to the ER. Patient was treated for a cold 2 days ago. Cultures were done and the results are positive. Hgb done today is 6.2. Admission was advised. 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 Present on Admission - Present on Admission Any Indicators Present on Admission: No History of DVT/PE: No History of Uncontrolled Diabetes: No Urinary Catheter: No Decubitus Ulcer Present: No Review of Systems - Constitutional Constitutional: Fatigue, Headache - EENT Nose/Mouth/Throat: Sinus Pain - Cardiovascular Cardiovascular: Dyspnea on Exertion - Respiratory Respiratory: Wheezing - Gastrointestinal Gastrointestinal: Diarrhea - Reproductive: Female Reproductive:Female: Post Menopausal - Menstruation Menstruation: Post Menopausal - Musculoskeletal Musculoskeletal: Arthralgias - Integumentary Integumentary: Dry Skin - Neurological Neurological: Headaches Past Patient History - Infectious Disease Hx of Infectious Diseases: None - Tetanus Immunizations Tetanus Immunization: Unknown, Up to Date - Past Medical History & Family History Past Medical History?: Yes - Past Social History Smoking Status: Never Smoked Chewing Tobacco Use: No Cigar Use: No Alcohol: None Drugs: Denies Home Situation {Lives}: With Family - CARDIAC Hx Hypertension: Yes - PULMONARY Hx Pneumonia: Yes - NEUROLOGICAL Hx Neurological Disorder: No - HEENT Hx HEENT Problems: No Hx Sinusitis: Yes - RENAL Hx Chronic Kidney Disease: No - ENDOCRINE/METABOLIC Hx Diabetes Mellitus Type 2: Yes - HEMATOLOGICAL/ONCOLOGICAL Hx Anemia: Yes Hx Leukemia: Yes - INTEGUMENTARY Hx Dermatological Problems: No Other/Comment: BLE w/ cauliflowered skin - MUSCULOSKELETAL/RHEUMATOLOGICAL Hx Arthritis: Yes Hx Falls: Yes - GASTROINTESTINAL Hx Gastrointestinal Disorders: No - GENITOURINARY/GYNECOLOGICAL Hx Genitourinary Disorders: No - PSYCHIATRIC Hx Substance Use: No - SURGICAL HISTORY Hx Cholecystectomy: Yes (in 2010) - ANESTHESIA Hx Anesthesia: Yes Hx Anesthesia Reactions: No Hx Malignant Hyperthermia: No Meds Allergies/Adverse Reactions: Allergies Allergy/AdvReac Type Severity Reaction Status Date / Time Gadolinium-Containing Allergy ITCHING Verified 07/23/16 20:50 Contrast Medi Physical Exam - Constitutional Appears: Chronically Ill - Head Exam Head Exam: NORMAL INSPECTION - Eye Exam Eye Exam: Normal appearance Pupil Exam: NORMAL ACCOMODATION - ENT Exam ENT Exam: Normal External Ear Exam - Neck Exam Neck exam: Positive for: Normal Inspection - Respiratory Exam Respiratory Exam: Decreased Breath Sounds - Cardiovascular Exam Cardiovascular Exam: REGULAR RHYTHM - GI/Abdominal Exam GI & Abdominal Exam: Hypoactive Bowel Sounds - Rectal Exam Rectal Exam: Deferred - Exam External exam: NORMAL EXTERNAL EXAM - Extremities Exam Extremities exam: Positive for: pedal edema - Back Exam Back exam: NORMAL INSPECTION - Neurological Exam Neurological exam: Oriented x3 - Psychiatric Exam Psychiatric exam: Depressed - Skin Skin Exam: Dry Results - Vital Signs Recent Vital Signs: Last Vital Signs Temp 98.3 F 10/12/16 20:45 Pulse 83 10/12/16 20:45 Resp 20 10/12/16 20:45 BP 166/79 H 10/12/16 20:45 Pulse Ox 96 10/12/16 18:22 - Labs Result Diagrams: 10/12/16 13:17 10/12/16 13:17 Labs: Laboratory Results - last 24 hr 10/12/16 10/12/16 10/12/16 14:38 15:59 21:22 POC Glucose (mg/dL) 173 H Urine Color [place] Urine Clarity Hazy Urine pH 5.0 Ur Specific [place] 1.018 Urine Protein 1+ H Urine Glucose (UA) Normal Urine Ketones Negative Urine Blood 3+ H Urine Nitrate Negative Urine Bilirubin Negative Urine Urobilinogen 4.0 H Ur Leukocyte Esterase Neg Urine WBC (Auto) 4 Urine RBC (Auto) 48 H Ur Squamous Epith Cells 11 H Urine Bacteria Many H Blood Type O NEGATIVE Antibody Screen Negative Assessment & Plan (1) Anemia Status: Acute (2) Positive blood culture Status: Acute (3) UTI (urinary tract infection) Status: Acute (4) Degenerative disc disease at L5-S1 level Status: Acute Priority: Medium (5) Diabetes mellitus type 2 in obese Status: Acute Priority: Medium
[2016-10-13] MEDS ORDERED: Albuterol-Ipratrop 3 mg / 0.5 (3 ml) UD INH STA (01:54)
[2016-10-13] MEDS ORDERED: guaiFENesin 100 mg/5 ml Syrup UD PO ONE (01:55)
[2016-10-13] MEDS: EPOETIN ALFA 10,000 UNIT/ML ML SC SCH (08:59)
[2016-10-13] MEDS: Pantoprazole 40 mg EC Tab PO SCH (10:39)
[2016-10-13 11:18] LABS: INR 1.4
[2016-10-13 11:22] LABS: IRON 38 ug/dL (37-170)
[2016-10-13 11:28] LABS: FIBRINOGEN 246 mg/dL (200-400); HEMOGLOBIN 8.4 g/dL (11.0-16.0); MEAN CELL VOLUME 89.6 fL (81.0-99.0); MEAN CORPUSCULAR HGB CONC 32.3 g/dL (33.0-37.0); MEAN PLATELET VOLUME 8.7 fL (7.2-11.7); RBC 2.9 Mil/uL (3.80-5.20); RED CELL DISTRIBUTION WIDTH 18.9 % (11.5-14.5); WHITE BLOOD COUNT 9.9 K/uL (4.8-10.8)
[2016-10-13 11:32] LABS: % IRON SATURATION 18 (20-55); TOTAL IRON BINDING CAPACITY 215 ug/dL (250-450)
[2016-10-13 11:45] LABS: FDP INTERPRETATION POSITIVE (NEGATIVE); FDP QUANTITY >10<40 ug/mL (<10)
[2016-10-13] MEDS ORDERED: Meropenem 500 MG in Sodium Chloride 0.9% 100 ML IVPB SCH (12:00)
--- NOTE | 2016-10-13 13:30 | CP.PCM.CON ---
History of Present Illness - History of Present Illness History of Present Illness: 75 yo woman with pancytopenia, admitted with positive blood cultures with gram negative rods, history of MDS, last bone marrow several years ago, currently on Procrit, s/p blood transfusion, counts stable as of now. Past Patient History - Infectious Disease Hx of Infectious Diseases: None - Tetanus Immunizations Tetanus Immunization: Unknown, Up to Date - Past Medical History & Family History Past Medical History?: Yes - Past Social History Smoking Status: Never Smoked Chewing Tobacco Use: No Cigar Use: No Alcohol: None Drugs: Denies Home Situation {Lives}: With Family - CARDIAC Hx Hypertension: Yes - PULMONARY Hx Pneumonia: Yes - NEUROLOGICAL Hx Neurological Disorder: No - HEENT Hx HEENT Problems: No Hx Sinusitis: Yes - RENAL Hx Chronic Kidney Disease: No - ENDOCRINE/METABOLIC Hx Diabetes Mellitus Type 2: Yes - HEMATOLOGICAL/ONCOLOGICAL Hx Anemia: Yes Hx Leukemia: Yes - INTEGUMENTARY Hx Dermatological Problems: No Other/Comment: BLE w/ cauliflowered skin - MUSCULOSKELETAL/RHEUMATOLOGICAL Hx Arthritis: Yes Hx Falls: Yes - GASTROINTESTINAL Hx Gastrointestinal Disorders: No - GENITOURINARY/GYNECOLOGICAL Hx Genitourinary Disorders: No - PSYCHIATRIC Hx Substance Use: No - SURGICAL HISTORY Hx Cholecystectomy: Yes (in 2010) - ANESTHESIA Hx Anesthesia: Yes Hx Anesthesia Reactions: No Hx Malignant Hyperthermia: No Meds Allergies/Adverse Reactions: Allergies Allergy/AdvReac Type Severity Reaction Status Date / Time Gadolinium-Containing Allergy ITCHING Verified 07/23/16 20:50 Contrast Medi - Medications Medications: Current Medications Albuterol (Ventolin Hfa 90 Mcg/Actuation (8 G)) 2 puff INH RQ6 PRN PRN Reason: Wheezing Enalapril Maleate (Vasotec) 20 mg PO DAILY [facility] Last Admin: 10/13/16 10:39 Dose: 20 mg Epoetin Arturo (Procrit) 10,000 unit SC MWF [facility] Last Admin: 10/13/16 08:59 Dose: 10,000 unit Ferrous Sulfate (Feosol) 325 mg PO DAILY [facility] Last Admin: 10/13/16 10:39 Dose: 325 mg Vancomycin HCl 1 gm/ Sodium (Chloride) 250 mls @ 166.7 mls/hr IVPB Q12H [facility] Last Admin: 10/13/16 00:20 Dose: 166.7 mls/hr Meropenem 500 mg/ Sodium (Chloride) 100 mls @ 100 mls/hr IVPB Q6 [facility] Insulin Glargine (Lantus) 16 unit SC [facility] Last Admin: 10/12/16 22:24 Dose: 16 unit Loperamide HCl (Imodium) 2 mg PO Q4H PRN PRN Reason: Diarrhea Lorazepam (Ativan) 0.5 mg PO HS [facility] Last Admin: 10/12/16 22:24 Dose: 0.5 mg Pantoprazole Sodium (Protonix Ec Tab) 40 mg PO DAILY [facility] Last Admin: 10/13/16 10:39 Dose: 40 mg Results - Vital Signs Recent Vital Signs: Last Vital Signs Temp 98.9 F 10/13/16 08:00 Pulse 75 10/13/16 08:00 Resp 20 10/13/16 08:00 BP 174/81 H 10/13/16 10:39 Pulse Ox 97 10/13/16 08:00 - Labs Result Diagrams: 10/13/16 11:04 10/12/16 13:17 Labs: Laboratory Results - last 24 hr 10/12/16 10/12/16 10/12/16 14:38 15:59 21:22 WBC RBC Hgb Hct MCV MCH MCHC RDW Plt Count MPV Retic Count PT INR APTT Fibrinogen Fibrin Degrad Products Fibrin Degrad Prod, Qt POC Glucose (mg/dL) 173 H Iron TIBC % Saturation Ferritin Vitamin B12 Urine Color [place] Urine Clarity Hazy Urine pH 5.0 Ur Specific [place] 1.018 Urine Protein 1+ H Urine Glucose (UA) Normal Urine Ketones Negative Urine Blood 3+ H Urine Nitrate Negative Urine Bilirubin Negative Urine Urobilinogen 4.0 H Ur Leukocyte Esterase Neg Urine WBC (Auto) 4 Urine RBC (Auto) 48 H Ur Squamous Epith Cells 11 H Urine Bacteria Many H Blood Type O NEGATIVE Antibody Screen Negative 10/13/16 10/13/16 10/13/16 02:10 07:09 11:04 WBC 9.9 RBC 2.90 L Hgb 8.4 L D Hct 26.0 L MCV 89.6 MCH 29.0 MCHC 32.3 L RDW 18.9 H Plt Count 29 L* MPV 8.7 Retic Count 2.7 H D PT INR APTT Fibrinogen Fibrin Degrad Products Fibrin Degrad Prod, Qt POC Glucose (mg/dL) 191 H 178 H Iron TIBC % Saturation Ferritin Vitamin B12 Urine Color Urine Clarity Urine pH Ur Specific [place] Urine Protein Urine Glucose (UA) Urine Ketones Urine Blood Urine Nitrate Urine Bilirubin Urine Urobilinogen Ur Leukocyte Esterase Urine WBC (Auto) Urine RBC (Auto) Ur Squamous Epith Cells Urine Bacteria Blood Type Antibody Screen 10/13/16 10/13/16 10/13/16 11:04 11:04 11:04 WBC RBC Hgb Hct MCV MCH MCHC RDW Plt Count MPV Retic Count PT 16.0 H INR 1.4 APTT 27 Fibrinogen 246 Fibrin Degrad Products Positive H Fibrin Degrad Prod, Qt >10<40 H POC Glucose (mg/dL) Iron 38 TIBC 215 L % Saturation 18 L Ferritin Vitamin B12 Urine Color Urine Clarity Urine pH Ur Specific [place] Urine Protein Urine Glucose (UA) Urine Ketones Urine Blood Urine Nitrate Urine Bilirubin Urine Urobilinogen Ur Leukocyte Esterase Urine WBC (Auto) Urine RBC (Auto) Ur Squamous Epith Cells Urine Bacteria Blood Type Antibody Screen 10/13/16 10/13/16 11:04 11:15 WBC RBC Hgb Hct MCV MCH MCHC RDW Plt Count MPV Retic Count PT INR APTT Fibrinogen Fibrin Degrad Products Fibrin Degrad Prod, Qt POC Glucose (mg/dL) 154 H Iron TIBC % Saturation Ferritin 687.0 Vitamin B12 > 1000 H Urine Color Urine Clarity Urine pH Ur Specific [place] Urine Protein Urine Glucose (UA) Urine Ketones Urine Blood Urine Nitrate Urine Bilirubin Urine Urobilinogen Ur Leukocyte Esterase Urine WBC (Auto) Urine RBC (Auto) Ur Squamous Epith Cells Urine Bacteria Blood Type Antibody Screen Assessment & Plan (1) Myelodysplasia, high grade Assessment and Plan: Pancytopenia, Continue supportive transfusions, PRN. Platelet transfusions only if bleeding or procedures planned Status: Acute
--- NOTE | 2016-10-13 15:26 | CP.PCM.CON ---
History of Present Illness - History of Present Illness History of Present Illness: 75 YO FEMALE RECENTLY SEEN IN ER FOR FEVER ADMITTED WITH GRAM NEG SEPSIS SOURCE UNCLEAR HAS PANCYTOPENIA AND POSSIBLE DIC HEME ON BOARD IV RX IN PROGRESS HAS LYMPHEDEMA AND VENOUS STASIS OF LEGS RECCOMENDED D/C PICC SINCE SOURCE OF BACTEREMIA UNCLEAR 75 yo woman with pancytopenia, admitted with positive blood cultures with gram negative rods, history of MDS, last bone marrow several years ago, currently on Procrit, s/p blood transfusion, counts stable as of now. Review of Systems - Constitutional Constitutional: Anorexia, Chills, Fever - EENT Eyes: absent: As Per HPI, Blind Spots, Blurred Vision, Change in Vision, Decreased Night Vision, Diplopia, Discharge, Dry Eye, Exophthalmos, Floaters, Irritation, Itchy Eyes, Loss of Peripheral Vision, Pain, Photophobia, Requires Corrective Lenses, Sees Flashes, Spots in Vision, Tunnel Vision, Other Visual Disturbances, Loss of Vision, Other Ears: absent: As Per HPI, Decreased Hearing, Ear Discharge, Ear Pain, Tinnitus, Abnormal Hearing, Disequilibrium, Dizziness, Other Nose/Mouth/Throat: absent: As Per HPI, Epistaxis, Nasal Congestion, Nasal Discharge, Nasal Obstruction, Nasal Trauma, Nose Pain, Post Nasal Drip, Sinus Pain, Sinus Pressure, Bleeding Gums, Change in Voice, Dental Pain, Dry Mouth, Dysphagia, Halitosis, Hoarsness, Lip Swelling, Mouth Lesions, Mouth Pain, Odynophagia, Sore Throat, Throat Swelling, Tongue Swelling, Facial Pain, Neck Pain, Neck Mass, Other - Breasts Breasts: absent: As Per HPI, Change in Shape, Mass, Pain, Nipple Discharge, Nipple Inversion, Skin Changes, Swelling, Other - Cardiovascular Cardiovascular: absent: As Per HPI, Acrocyanosis, Chest Pain, Chest Pain at Rest , Chest Pain with Activity, Claudication, Diaphoresis, Dyspnea, Dyspnea on Exertion, Edema, Irregular Heart Rhythm, Pain Radiating to Arm/Neck/Jaw, Leg Edema, Leg Ulcers, Lightheadedness, Orthopnea, Palpitations, Paroxysmal Nocturnal Dyspnea, Pedal Edema, Radiating Pain, Rapid Heart Rate, Slow Heart Rate, Syncope, Other - Respiratory Respiratory: absent: As Per HPI, Cough, Dyspnea, Hemoptysis, Dyspnea on Exertion , Wheezing, Snoring, Stridor, Pain on Inspiration, Chest Congestion, Excessive Mucous Production, Change in Mucous Color, Pain with Coughing, Other - Gastrointestinal Gastrointestinal: absent: As Per HPI, Abdominal Pain, Belching, Bloating, Change in Bowel Habits, Change in Stool Character, Coffee Ground Emesis, Constipation, Cramping, Diarrhea, Dyspepsia, Dysphagia, Early Satiety, Excessive Flatus, Fecal Incontinence, Heartburn, Hematemesis, Hematochezia, Loose Stools, Melena, Nausea, Odynophagia, Temesmus, Vomiting, Other - Reproductive: Female Reproductive:Female: absent: As Per HPI, Amenorrhea, Amenorrhea/ Control, Currently Menstual, Cycle <21 Days, Cycle >35 Days, Cycle Variable, Menses 1-7 Days, Menses >/= 8 Days, Menses Variable, Cycle > 4 Weeks Between, No Menses for 6 Months, Heavy Menses, Light Menses, Normal Menses, Spotting Between Cycles , S/P Hysterectomy, Menopausal, Post Menopausal, Premenarche, Abnormal Vaginal Bleeding, Dysmenorrhea, Dyspareunia, Genital Lesions, Genital Pruritis, Pelvic Pain, Prolapse Symptoms, Sexual Dysfunction, Vaginal Discharge, Vaginal Dryness , Vaginal Odor, Vaginal Pruritis, Other - Menstruation Menstruation: absent: As Per HPI, Amenorrhea, Amenorrhea/ Control, Currently Menstual, Cycle <21 Days, Cycle >35 Days, Cycle Variable, Menses 1-7 Days, Menses >/= 8 Days, Menses Variable, Cycle > 4 Weeks Between, No Menses for 6 Months, Heavy Menses, Light Menses, Normal Menses, Spotting Between Cycles , S/P Hysterectomy, Menopausal, Post Menopausal, Premenarche, Abnormal Vaginal Bleeding, Dysmenorrhea, Other - Musculoskeletal Musculoskeletal: As Per HPI - Integumentary Integumentary: As Per HPI, Dry Skin, Skin Pain, Skin Ulcer, Sores, Wounds - Neurological Neurological: absent: As Per HPI, Abnormal Gait, Abnormal Hearing, Abnormal Movements, Abnormal Speech, Behavioral Changes, Burning Sensations, Confusion, Convulsions, Disequilibrium, Dizziness, Numbness, Focal Weakness, Frequent Falls , Headaches, Lack of Coordination, Loss of Vision, Memory Loss, Paresthesias, Radicular Pain, Restless Legs, Sensory Deficit, Syncope, Tingling, Tremor, Vertigo, Weakness, Other Visual Disturbances, Other - Psychiatric Psychiatric: absent: As Per HPI, Abnormal Sleep Pattern, Anhedonia, Anxiety, Auditory Hallucinations, Behavioral Changes, Change in Appetite, Change in Libido, Confusion, Depression, Difficulty Concentrating, Hallucinations, Homicidal Ideation, Hopelessness, Irritability, Memory Loss, Mood Swings, Panic Attacks, Paranoia, Suicidal Ideation, Visual Hallucinations, Tactile Hallucinations, Other - Endocrine Endocrine: absent: As Per HPI, Change in Body Appearance, Change in Libido, Cold Intolorance, Deepening of Voice, Excessive Sweating, Fatigue, Flushing, Heat Intolorance, Increase in Ring/Shoe/Hat Size, Palpitations, Polydipsia, Polyphagia, Polyuria, Other - Hematologic/Lymphatic Hematologic: As Per HPI Past Patient History - Infectious Disease Hx of Infectious Diseases: None - Tetanus Immunizations Tetanus Immunization: Unknown, Up to Date - Past Medical History & Family History Past Medical History?: Yes - Past Social History Smoking Status: Never Smoked Chewing Tobacco Use: No Cigar Use: No Alcohol: None Drugs: Denies Home Situation {Lives}: With Family - CARDIAC Hx Hypertension: Yes - PULMONARY Hx Pneumonia: Yes - NEUROLOGICAL Hx Neurological Disorder: No - HEENT Hx HEENT Problems: No Hx Sinusitis: Yes - RENAL Hx Chronic Kidney Disease: No - ENDOCRINE/METABOLIC Hx Diabetes Mellitus Type 2: Yes - HEMATOLOGICAL/ONCOLOGICAL Hx Anemia: Yes Hx Leukemia: Yes - INTEGUMENTARY Hx Dermatological Problems: No Other/Comment: BLE w/ cauliflowered skin - MUSCULOSKELETAL/RHEUMATOLOGICAL Hx Arthritis: Yes Hx Falls: Yes - GASTROINTESTINAL Hx Gastrointestinal Disorders: No - GENITOURINARY/GYNECOLOGICAL Hx Genitourinary Disorders: No - PSYCHIATRIC Hx Substance Use: No - SURGICAL HISTORY Hx Cholecystectomy: Yes (in 2010) - ANESTHESIA Hx Anesthesia: Yes Hx Anesthesia Reactions: No Hx Malignant Hyperthermia: No Meds Allergies/Adverse Reactions: Allergies Allergy/AdvReac Type Severity Reaction Status Date / Time Gadolinium-Containing Allergy ITCHING Verified 07/23/16 20:50 Contrast Medi - Medications Medications: Current Medications Albuterol (Ventolin Hfa 90 Mcg/Actuation (8 G)) 2 puff INH RQ6 PRN PRN Reason: Wheezing Enalapril Maleate (Vasotec) 20 mg PO DAILY [facility] Last Admin: 10/13/16 10:39 Dose: 20 mg [facility]poetin Arturo ([facility] Admin: 10/13/16 08:59 Dose: 10,000 unit Ferrous Sulfate (Feosol) 325 mg PO DAILY [facility] Last Admin: 10/13/16 10:39 Dose: 325 mg Vancomycin HCl 1 gm/ Sodium (Chloride) 250 mls @ 166.7 mls/hr IVPB Q12H [facility] Last Admin: 10/13/16 00:20 Dose: 166.7 mls/hr Meropenem 500 mg/ Sodium (Chloride) 100 mls @ 100 mls/hr IVPB Q6 [facility] Insulin Glargine (Lantus) 16 unit SC HS [facility] Last Admin: 10/12/16 22:24 Dose: 16 unit Loperamide HCl (Imodium) 2 mg PO Q4H PRN PRN Reason: Diarrhea Lorazepam (Ativan) 0.5 mg PO HS [facility] Last Admin: 10/12/16 22:24 Dose: 0.5 mg Pantoprazole Sodium (Protonix Ec Tab) 40 mg PO DAILY [facility] Last Admin: 10/13/16 10:39 Dose: 40 mg Physical Exam - Constitutional Appears: Non-toxic, Confused, Chronically Ill - Head Exam Head Exam: ATRAUMATIC, NORMAL INSPECTION, NORMOCEPHALIC - Eye Exam Eye Exam: EOMI, PERRL. absent: Scleral icterus - ENT Exam ENT Exam: Mucous Membranes Dry, Normal External Ear Exam, Normal Oropharynx - Neck Exam Neck exam: Negative for: Lymphadenopathy, Thyromegaly - Respiratory Exam Respiratory Exam: Decreased Breath Sounds, Rhonchi - Cardiovascular Exam Cardiovascular Exam: REGULAR RHYTHM, +S1, +S2 - GI/Abdominal Exam GI & Abdominal Exam: Diminished Bowel Sounds, Soft. absent: Tenderness - Rectal Exam Rectal Exam: Deferred - Exam Exam: NORMAL INSPECTION - Extremities Exam Extremities exam: Positive for: calf tenderness, pedal edema, tenderness, pedal pulses present Additional comments: LEG SWELLING RIGHT > LEFT - Back Exam Back exam: absent: CVA tenderness (L), CVA tenderness (R), paraspinal tenderness - Neurological Exam Neurological exam: Alert, CN II-XII Intact, Oriented x3, Reflexes Normal - Psychiatric Exam Psychiatric exam: Normal Mood - Skin Skin Exam: Dry Results - Vital Signs Recent Vital Signs: Last Vital Signs Temp 98.9 F 10/13/16 08:00 Pulse 75 06/16/17 08:00 Resp 20 10/13/16 08:00 BP 174/81 H 10/13/16 10:39 Pulse Ox 97 10/13/16 08:00 - Labs Result Diagrams: 10/13/16 11:04 10/12/16 13:17 Labs: Laboratory Results - last 24 hr 10/12/16 10/12/16 10/12/16 14:38 15:59 21:22 WBC RBC Hgb Hct MCV MCH MCHC RDW Plt Count MPV Retic Count PT INR APTT Fibrinogen Fibrin Degrad Products Fibrin Degrad Prod, Qt POC Glucose (mg/dL) 173 H Iron TIBC % Saturation Ferritin Vitamin B12 Urine Color Kylah Urine Clarity Hazy Urine pH 5.0 Ur Specific Munger 1.018 Urine Protein 1+ H Urine Glucose (UA) Normal Urine Ketones Negative Urine Blood 3+ H Urine Nitrate Negative Urine Bilirubin Negative Urine Urobilinogen 4.0 H Ur Leukocyte Esterase Neg Urine WBC (Auto) 4 Urine RBC (Auto) 48 H Ur Squamous Epith Cells 11 H Urine Bacteria Many H Blood Type O NEGATIVE Antibody Screen Negative 10/13/16 10/13/16 10/13/16 02:10 07:09 11:04 WBC 9.9 RBC 2.90 L Hgb 8.4 L D Hct 26.0 L MCV 89.6 MCH 29.0 MCHC 32.3 L RDW 18.9 H Plt Count 29 L* MPV 8.7 Retic Count 2.7 H D PT INR APTT Fibrinogen Fibrin Degrad Products Fibrin Degrad Prod, Qt POC Glucose (mg/dL) 191 H 178 H Iron TIBC % Saturation Ferritin Vitamin B12 Urine Color Urine Clarity Urine pH Ur Specific Munger Urine Protein Urine Glucose (UA) Urine Ketones Urine Blood Urine Nitrate Urine Bilirubin Urine Urobilinogen Ur Leukocyte Esterase Urine WBC (Auto) Urine RBC (Auto) Ur Squamous Epith Cells Urine Bacteria Blood Type Antibody Screen 10/13/16 10/13/16 10/13/16 11:04 11:04 11:04 WBC RBC Hgb Hct MCV MCH MCHC RDW Plt Count MPV Retic Count PT 16.0 H INR 1.4 APTT 27 Fibrinogen 246 Fibrin Degrad Products Positive H Fibrin Degrad Prod, Qt >10<40 H POC Glucose (mg/dL) Iron 38 TIBC 215 L % Saturation 18 L Ferritin Vitamin B12 Urine Color Urine Clarity Urine pH Ur Specific Munger Urine Protein Urine Glucose (UA) Urine Ketones Urine Blood Urine Nitrate Urine Bilirubin Urine Urobilinogen Ur Leukocyte Esterase Urine WBC (Auto) Urine RBC (Auto) Ur Squamous Epith Cells Urine Bacteria Blood Type Antibody Screen 10/13/16 10/13/16 11:04 11:15 WBC RBC Hgb Hct MCV MCH MCHC RDW Plt Count MPV Retic Count PT INR APTT Fibrinogen Fibrin Degrad Products Fibrin Degrad Prod, Qt POC Glucose (mg/dL) 154 H Iron TIBC % Saturation Ferritin 687.0 Vitamin B12 > 1000 H Urine Color Urine Clarity Urine pH Ur Specific Munger Urine Protein Urine Glucose (UA) Urine Ketones Urine Blood Urine Nitrate Urine Bilirubin Urine Urobilinogen Ur Leukocyte Esterase Urine WBC (Auto) Urine RBC (Auto) Ur Squamous Epith Cells Urine Bacteria Blood Type Antibody Screen Assessment & Plan (1) Anemia Status: Acute (2) Myelodysplasia, high grade Status: Acute (3) Positive blood culture Status: Acute (4) UTI (urinary tract infection) Status: Acute (5) Anemia associated with nutritional deficiency Status: Acute (6) Bronchitis Status: Acute (7) Diabetes mellitus type 2 in obese Status: Acute Priority: Medium - Assessment and Plan (Free Text) Assessment: CONT IV ANTIBIOTICS D/C PICC PAULINE HEME EVAL WOUND / SKIN CARE
[2016-10-13] MEDS: AMPicillin 2 GM in Sodium Chloride 0.9% 100 ML IVPB SCH ×2 (19:04→22:54)
--- NOTE | 2016-10-13 22:35 | CP.PCM.PN ---
Subjective - Date & Time of Evaluation Date of Evaluation: 10/13/16 Time of Evaluation: 13:30 - Subjective Subjective: Patient was tranfused two units of packed cells. Blood cultures reveal gram negative rods. Patient was placed on IV vancomycin. Consult requested with Dr Prabhakar. Objective - Vital Signs/Intake and Output Vital Signs (last 24 hours): Temp Pulse Resp BP Pulse Ox 98.0 F 69 20 151/76 H 96 10/13/16 15:00 10/13/16 15:00 10/13/16 15:00 10/13/16 15:00 10/13/16 15:00 Intake and Output: 10/13/16 10/14/16 18:59 06:59 Intake Total 325 Balance 325 - Medications Medications: Current Medications Albuterol (Ventolin Hfa 90 Mcg/Actuation (8 G)) 2 puff INH RQ6 PRN PRN Reason: Wheezing Enalapril Maleate (Vasotec) 20 mg PO DAILY [facility] Last Admin: 10/13/16 10:39 Dose: 20 mg Epoetin Arturo (Procrit) 10,000 unit SC MWF [facility] Last Admin: 10/13/16 08:59 Dose: 10,000 unit Ferrous Sulfate (Feosol) 325 mg PO DAILY [facility] Last Admin: 10/13/16 10:39 Dose: 325 mg Tigecycline 50 mg/ Sodium (Chloride) 100 mls @ 100 mls/hr IVPB Q12H [facility] Ampicillin 2 gm/ Sodium (Chloride) 100 mls @ 100 mls/hr IVPB Q6H [facility] Last Admin: 10/13/16 19:04 Dose: 100 mls/hr Insulin Glargine (Lantus) 16 unit SC [facility] Last Admin: 10/12/16 22:24 Dose: 16 unit Loperamide HCl (Imodium) 2 mg PO Q4H PRN PRN Reason: Diarrhea Lorazepam (Ativan) 0.5 mg PO HS [facility] Last Admin: 10/12/16 22:24 Dose: 0.5 mg Pantoprazole Sodium (Protonix Ec Tab) 40 mg PO DAILY [facility] Last Admin: 10/13/16 10:39 Dose: 40 mg - Labs Labs: 10/13/16 11:04 PT 16.0 SECONDS (9.7-12.2) H 10/13/16 11:04 INR 1.4 10/13/16 11:04 APTT 27 SECONDS (21-34) 10/13/16 11:04 - Constitutional Appears: No Acute Distress - Head Exam Head Exam: NORMAL INSPECTION - Eye Exam Eye Exam: Normal appearance - ENT Exam ENT Exam: Normal Exam - Neck Exam Neck Exam: Normal Inspection - Respiratory Exam Respiratory Exam: Decreased Breath Sounds - Cardiovascular Exam Cardiovascular Exam: REGULAR RHYTHM - GI/Abdominal Exam GI & Abdominal Exam: Normal Bowel Sounds - Rectal Exam Rectal Exam: Deferred - Exam Speculum exam: NORMAL SPECULUM EXAM - Extremities Exam Extremities Exam: Joint Swelling - Back Exam Back Exam: NORMAL INSPECTION - Neurological Exam Neurological Exam: Oriented x3 - Psychiatric Exam Psychiatric exam: Depressed - Skin Skin Exam: Dry Assessment and Plan (1) Anemia Status: Acute (2) Positive blood culture Status: Acute (3) UTI (urinary tract infection) Status: Acute (4) Degenerative disc disease at L5-S1 level Status: Acute (5) Diabetes mellitus type 2 in obese Status: Acute (6) Myelodysplasia, high grade Status: Acute
[2016-10-13] MEDS: (Lantus) Insulin Glargine, Recombinant SC SCH (22:54)
[2016-10-14] MEDS: AMPicillin 2 GM in Sodium Chloride 0.9% 100 ML IVPB SCH ×4 (03:50→21:51)
[2016-10-14] MEDS: Pantoprazole 40 mg EC Tab PO SCH (09:59)
[2016-10-14 13:03] LABS: HEMOGLOBIN 8.6 g/dL (11.0-16.0); MEAN CELL VOLUME 91.1 fL (81.0-99.0); MEAN CORPUSCULAR HEMOGLOBIN 28.7 pg (27.0-31.0); MEAN CORPUSCULAR HGB CONC 31.5 g/dL (33.0-37.0); RED CELL DISTRIBUTION WIDTH 19.5 % (11.5-14.5); WHITE BLOOD COUNT 6.8 K/uL (4.8-10.8)
[2016-10-14 13:32] LABS: LYMPH # 1.4 K/uL (1.0-4.3); MONO # 1.3 K/uL (0.0-0.8); NEUT # 4.1 K/uL (1.8-7.0)
[2016-10-14] MEDS: (Lantus) Insulin Glargine, Recombinant SC SCH (21:50)
--- NOTE | 2016-10-14 22:09 | CP.PCM.PN ---
Subjective - Date & Time of Evaluation Date of Evaluation: 10/14/16 Time of Evaluation: 15:35 - Subjective Subjective: Patient is alert and in no distress. Latest Hgb 8.6. She is receiving ampicillin and tegacycline IV. Patient scheduled for portacath on Sunday. Objective - Vital Signs/Intake and Output Vital Signs (last 24 hours): Temp Pulse Resp BP Pulse Ox 98.5 F 83 20 164/76 H 96 10/14/16 15:12 10/14/16 15:12 10/14/16 15:12 10/14/16 15:12 10/14/16 15:12 Intake and Output: 10/14/16 10/15/16 18:59 06:59 Intake Total 580 Balance 580 - Medications Medications: Current Medications Albuterol (Ventolin Hfa 90 Mcg/Actuation (8 G)) 2 puff INH RQ6 PRN PRN Reason: Wheezing Enalapril Maleate (Vasotec) 20 mg PO DAILY [facility] Last Admin: 10/14/16 09:59 Dose: 20 mg Epoetin Arturo (Procrit) 10,000 unit SC MWF [facility] Last Admin: 10/13/16 08:59 Dose: 10,000 unit Ferrous Sulfate (Feosol) 325 mg PO DAILY [facility] Last Admin: 10/14/16 09:59 Dose: 325 mg Tigecycline 50 mg/ Sodium (Chloride) 100 mls @ 100 mls/hr IVPB Q12H [facility] Last Admin: 10/14/16 17:09 Dose: 100 mls/hr Ampicillin 2 gm/ Sodium (Chloride) 100 mls @ 100 mls/hr IVPB Q6H [facility] Last Admin: 10/14/16 21:51 Dose: 100 mls/hr Insulin Glargine (Lantus) 16 unit SC HS [facility] Last Admin: 10/14/16 21:50 Dose: 16 unit Loperamide HCl (Imodium) 2 mg PO Q4H PRN PRN Reason: Diarrhea Lorazepam (Ativan) 0.5 mg PO HS [facility] Last Admin: 10/14/16 21:58 Dose: Not Given Pantoprazole Sodium (Protonix Ec Tab) 40 mg PO DAILY [facility] Last Admin: 10/14/16 09:59 Dose: 40 mg - Labs Labs: 10/14/16 12:49 PT 16.0 SECONDS (9.7-12.2) H 06/16/17 11:04 INR 1.4 10/13/16 11:04 APTT 27 SECONDS (21-34) 10/13/16 11:04 - Constitutional Appears: No Acute Distress - Head Exam Head Exam: NORMAL INSPECTION - Eye Exam Eye Exam: Normal appearance - ENT Exam ENT Exam: Normal Exam - Neck Exam Neck Exam: Normal Inspection - Respiratory Exam Respiratory Exam: Decreased Breath Sounds - Cardiovascular Exam Cardiovascular Exam: REGULAR RHYTHM - GI/Abdominal Exam GI & Abdominal Exam: Normal Bowel Sounds - Rectal Exam Rectal Exam: Deferred - Exam External exam: NORMAL EXTERNAL EXAM - Extremities Exam Extremities Exam: Joint Swelling - Back Exam Back Exam: NORMAL INSPECTION - Neurological Exam Neurological Exam: Oriented x3 - Psychiatric Exam Psychiatric exam: Depressed - Skin Skin Exam: Dry Assessment and Plan (1) Anemia Status: Acute (2) Positive blood culture Status: Acute (3) UTI (urinary tract infection) Status: Acute (4) Degenerative disc disease at L5-S1 level Status: Acute (5) Diabetes mellitus type 2 in obese Status: Acute (6) Myelodysplasia, high grade Status: Acute
[2016-10-15] MEDS: AMPicillin 2 GM in Sodium Chloride 0.9% 100 ML IVPB SCH ×4 (04:16→21:00)
[2016-10-15] MEDS: Pantoprazole 40 mg EC Tab PO SCH (10:15)
--- NOTE | 2016-10-15 15:24 | CP.PCM.PN ---
Subjective - Date & Time of Evaluation Date of Evaluation: 10/15/16 Time of Evaluation: 09:00 - Subjective Subjective: 75 yo woman with pancytopenia, admitted with positive blood cultures with gram negative rods, history of MDS, last bone marrow several years ago, currently on Procrit, s/p blood transfusion, counts stable as of now. Objective - Vital Signs/Intake and Output Vital Signs (last 24 hours): Temp Pulse Resp BP Pulse Ox 98.1 F 73 20 162/71 H 99 10/15/16 08:12 10/15/16 08:12 10/15/16 08:12 10/15/16 10:16 10/15/16 08:12 Intake and Output: 10/15/16 10/15/16 06:59 18:59 Intake Total 700 480 Balance 700 480 - Medications Medications: Current Medications Albuterol (Ventolin Hfa 90 Mcg/Actuation (8 G)) 2 puff INH RQ6 PRN PRN Reason: Wheezing Enalapril Maleate (Vasotec) 20 mg PO DAILY [facility] Last Admin: 10/15/16 10:16 Dose: 20 mg Epoetin Arturo (Procrit) 10,000 unit SC [facility]WF [facility] Last Admin: 10/13/16 08:59 Dose: 10,000 unit Ferrous Sulfate (Feosol) 325 mg PO DAILY [facility] Last Admin: 10/15/16 10:15 Dose: 325 mg Tigecycline 50 mg/ Sodium (Chloride) 100 mls @ 100 mls/hr IVPB Q12H [facility] Last Admin: 10/15/16 05:43 Dose: 100 mls/hr Ampicillin 2 gm/ Sodium (Chloride) 100 mls @ 100 mls/hr IVPB Q6H [facility] Last Admin: 10/15/16 10:16 Dose: 100 mls/hr Insulin Glargine (Lantus) 16 unit SC HS [facility] Last Admin: 10/14/16 21:50 Dose: 16 unit Loperamide HCl (Imodium) 2 mg PO Q4H PRN PRN Reason: Diarrhea Lorazepam (Ativan) 0.5 mg PO HS [facility] Last Admin: 10/14/16 21:58 Dose: Not Given Pantoprazole Sodium (Protonix Ec Tab) 40 mg PO DAILY [facility] Last Admin: 10/15/16 10:15 Dose: 40 mg - Labs Labs: 10/14/16 12:49 PT 16.0 SECONDS (9.7-12.2) H 10/13/16 11:04 INR 1.4 10/13/16 11:04 APTT 27 SECONDS (21-34) 10/13/16 11:04 - Constitutional Appears: Non-toxic, Chronically Ill - Head Exam Head Exam: NORMOCEPHALIC - Eye Exam Eye Exam: PERRL. absent: Scleral icterus - ENT Exam ENT Exam: Mucous Membranes Dry - Neck Exam Neck Exam: absent: Lymphadenopathy - Respiratory Exam Respiratory Exam: Decreased Breath Sounds, Rhonchi - Cardiovascular Exam Cardiovascular Exam: REGULAR RHYTHM - GI/Abdominal Exam GI & Abdominal Exam: Distended, Soft - Rectal Exam Rectal Exam: Deferred - Extremities Exam Extremities Exam: Pedal Edema. absent: Tenderness - Back Exam Back Exam: absent: CVA tenderness (L), CVA tenderness (R) - Neurological Exam Neurological Exam: Alert, Awake, Oriented x3 Assessment and Plan (1) Anemia Status: Acute (2) Myelodysplasia, high grade Status: Acute (3) Positive blood culture Status: Acute (4) UTI (urinary tract infection) Status: Acute (5) Anemia associated with nutritional deficiency Status: Acute (6) Bronchitis Status: Acute (7) Diabetes mellitus type 2 in obese Status: Acute - Assessment and Plan (Free Text) Assessment: cont iv rx tygacil
[2016-10-15 16:54] LABS: BASO % 0.5 % (0.0-2.0); EOS # 0.1 K/uL (0.0-0.7); EOS % 1.5 % (0.0-4.0); HEMOGLOBIN 8.6 g/dL (11.0-16.0); LYMPH # 1.3 K/uL (1.0-4.3); LYMPH % 15.9 % (20.0-40.0); MEAN CELL VOLUME 92.8 fL (81.0-99.0); MEAN CORPUSCULAR HEMOGLOBIN 28.4 pg (27.0-31.0); MEAN CORPUSCULAR HGB CONC 30.6 g/dL (33.0-37.0); MEAN PLATELET VOLUME 11.4 fL (7.2-11.7); MONO # 2.5 K/uL (0.0-0.8); MONO % 29.3 % (0.0-10.0); NEUT # 4.5 K/uL (1.8-7.0); NEUT % 52.8 % (50.0-75.0); NRBC % 1.6 % (0.0-2.0); RBC 3.03 Mil/uL (3.80-5.20); WHITE BLOOD COUNT 8.5 K/uL (4.8-10.8)
[2016-10-15 17:05] LABS: PLATELET COUNT 30 K/uL (130-400)
[2016-10-15 17:31] LABS: ANISOCYTOSIS SLIGHT; HYPOCHROMIC SLIGHT; LYMPHOCYTE 28 % (20-40); MONOCYTE 28 % (0-10); NEUTROPHIL 44 % (50-75); NUCLEATED RED BLOOD CELL 1 % (0-0); PLATELET ESTIMATE MARKEDLY DECREASED (NORMAL); POIKILOCYTOSIS SLIGHT; TOTAL CELLS COUNTED 100
[2016-10-15 20:18] LABS: ALBUMIN 2.5 g/dL (3.5-5.0)
[2016-10-15 20:20] LABS: AST/SGOT 15 U/L (14-36); GFR AFRICAN-AMERICAN > 60; GFR NON-AFRICAN AMERICAN > 60
[2016-10-15 20:21] LABS: ALB/GLOB RATIO 0.4 (1.0-2.1); ALT/SGPT 14 U/L (9-52); BLOOD UREA NITROGEN 20 mg/dL (7-17); CALCIUM 7.8 mg/dl (8.6-10.4)
[2016-10-15] MEDS: (Lantus) Insulin Glargine, Recombinant SC SCH (21:23)
--- NOTE | 2016-10-15 23:42 | CP.PCM.PN ---
Subjective - Date & Time of Evaluation Date of Evaluation: 10/15/16 Time of Evaluation: 17:25 - Subjective Subjective: Patient has lung congestion. Chest xray possible bronchitis. Hgb 8.6, platlets 30,000. Continue IV antibiotics. Objective - Vital Signs/Intake and Output Vital Signs (last 24 hours): Temp Pulse Resp BP Pulse Ox 98.1 F 100 H 20 170/71 H 100 10/15/16 16:05 10/15/16 16:05 10/15/16 16:05 10/15/16 16:05 10/15/16 16:05 Intake and Output: 10/15/16 10/16/16 18:59 06:59 Intake Total 480 Balance 480 - Medications Medications: Current Medications Albuterol (Ventolin Hfa 90 Mcg/Actuation (8 G)) 2 puff INH RQ6 PRN PRN Reason: Wheezing Enalapril Maleate (Vasotec) 20 mg PO DAILY [facility] Last Admin: 10/15/16 10:16 Dose: 20 mg Epoetin Arturo ([facility] Last Admin: 10/13/16 08:59 Dose: 10,000 unit Ferrous Sulfate (Feosol) 325 mg PO DAILY [facility] Last Admin: 10/15/16 10:15 Dose: 325 mg Tigecycline 50 mg/ Sodium (Chloride) 100 mls @ 100 mls/hr IVPB Q12H [facility] Last Admin: 10/15/16 17:00 Dose: 100 mls/hr Ampicillin 2 gm/ Sodium (Chloride) 100 mls @ 100 mls/hr IVPB Q6H [facility] Last Admin: 10/15/16 21:00 Dose: 100 mls/hr Insulin Glargine (Lantus) 16 unit SC [facility] Last Admin: 10/15/16 21:23 Dose: Not Given Loperamide HCl (Imodium) 2 mg PO Q4H PRN PRN Reason: Diarrhea Lorazepam (Ativan) 0.5 mg PO [facility] Last Admin: 10/15/16 21:34 Dose: Not Given Pantoprazole Sodium (Protonix Ec Tab) 40 mg PO DAILY [facility] Last Admin: 10/15/16 10:15 Dose: 40 mg - Labs Labs: 10/15/16 16:50 10/15/16 19:51 PT 16.0 SECONDS (9.7-12.2) H 10/13/16 11:04 INR 1.4 10/13/16 11:04 APTT 27 SECONDS (21-34) 10/13/16 11:04 - Constitutional Appears: No Acute Distress - Head Exam Head Exam: NORMAL INSPECTION - Eye Exam Eye Exam: Normal appearance Pupil Exam: NORMAL ACCOMODATION - ENT Exam ENT Exam: Normal Exam - Respiratory Exam Respiratory Exam: Decreased Breath Sounds - Cardiovascular Exam Cardiovascular Exam: REGULAR RHYTHM - GI/Abdominal Exam GI & Abdominal Exam: Hyperactive Bowel Sounds - Rectal Exam Rectal Exam: Deferred - Exam External exam: NORMAL EXTERNAL EXAM - Extremities Exam Extremities Exam: Joint Swelling - Back Exam Back Exam: vertebral tenderness - Neurological Exam Neurological Exam: Alert, Oriented x3 - Psychiatric Exam Psychiatric exam: Depressed - Skin Skin Exam: Dry Assessment and Plan (1) Anemia Status: Acute (2) Positive blood culture Status: Acute (3) UTI (urinary tract infection) Status: Acute (4) Degenerative disc disease at L5-S1 level Status: Acute (5) Diabetes mellitus type 2 in obese Status: Acute (6) Myelodysplasia, high grade Status: Acute
[2016-10-16] MEDS: AMPicillin 2 GM in Sodium Chloride 0.9% 100 ML IVPB SCH ×4 (03:00→21:35)
[2016-10-16 08:26] LABS: EOS % 0.1 % (0.0-4.0); HEMOGLOBIN 8.2 g/dL (11.0-16.0)
[2016-10-16 08:35] LABS: BASO # 0.1 K/uL (0.0-0.2); BASO % 1.3 % (0.0-2.0); LYMPH # 1.1 K/uL (1.0-4.3); LYMPH % 17.3 % (20.0-40.0); MEAN CELL VOLUME 91.5 fL (81.0-99.0); MEAN CORPUSCULAR HEMOGLOBIN 28.4 pg (27.0-31.0); MEAN PLATELET VOLUME 7.7 fL (7.2-11.7); MONO # 1.8 K/uL (0.0-0.8); NEUT # 3.3 K/uL (1.8-7.0); NEUT % 52.3 % (50.0-75.0); NRBC % 1.3 % (0.0-2.0); RBC 2.88 Mil/uL (3.80-5.20); RED CELL DISTRIBUTION WIDTH 20.6 % (11.5-14.5); WHITE BLOOD COUNT 6.3 K/uL (4.8-10.8)
[2016-10-16 08:38] LABS: ALBUMIN 2.8 g/dL (3.5-5.0)
[2016-10-16 08:41] LABS: ALB/GLOB RATIO 0.5 (1.0-2.1); AST/SGOT 14 U/L (14-36); BLOOD UREA NITROGEN 19 mg/dL (7-17); GFR AFRICAN-AMERICAN > 60; GFR NON-AFRICAN AMERICAN > 60
[2016-10-16 08:42] LABS: ALT/SGPT 8 U/L (9-52); CALCIUM 7.9 mg/dl (8.6-10.4)
[2016-10-16 09:34] LABS: PLATELET COUNT 30 K/uL (130-400)
[2016-10-16 09:43] LABS: LYMPHOCYTE 16 % (20-40); MONOCYTE 11 % (0-10); NEUTROPHIL 73 % (50-75); NUCLEATED RED BLOOD CELL 3 % (0-0); TOTAL CELLS COUNTED 100
[2016-10-16 09:44] LABS: ANISOCYTOSIS SLIGHT; HYPOCHROMIC SLIGHT; MICROCYTOSIS SLIGHT; PLATELET ESTIMATE DECREASED (NORMAL); POIKILOCYTOSIS SLIGHT
[2016-10-16 09:45] LABS: OVALOCYTES SLIGHT
[2016-10-16] MEDS: Pantoprazole 40 mg EC Tab PO SCH (10:21)
--- NOTE | 2016-10-16 10:45 | CP.PCM.PN ---
Subjective - Date & Time of Evaluation Date of Evaluation: 10/16/16 Time of Evaluation: 07:00 - Subjective Subjective: await repeat blood c/s cont iv rx for 14 days Objective - Vital Signs/Intake and Output Vital Signs (last 24 hours): Temp Pulse Resp BP Pulse Ox 97.9 F 72 20 160/72 H 98 10/16/16 09:03 10/16/16 09:03 10/16/16 09:03 10/16/16 10:21 10/16/16 09:03 - Medications Medications: Current Medications Albuterol (Ventolin Hfa 90 Mcg/Actuation (8 G)) 2 puff INH RQ6 PRN PRN Reason: Wheezing Enalapril Maleate (Vasotec) 20 mg PO DAILY [facility] Last Admin: 10/16/16 10:21 Dose: 20 mg Epoetin Arturo (Procrit) 10,000 unit SC MWF [facility] Last Admin: 10/13/16 08:59 Dose: 10,000 unit Ferrous Sulfate (Feosol) 325 mg PO DAILY [facility] Last Admin: 10/16/16 10:21 Dose: 325 mg Tigecycline 50 mg/ Sodium (Chloride) 100 mls @ 100 mls/hr IVPB Q12H [facility] [place] Last Admin: 10/16/16 05:00 Dose: 100 mls/hr Ampicillin 2 gm/ Sodium (Chloride) 100 mls @ 100 mls/hr IVPB Q6H [facility] [place] Last Admin: 10/16/16 10:19 Dose: 100 mls/hr Insulin Glargine (Lantus) 16 unit SC HS [facility] Last Admin: 10/15/16 21:23 Dose: Not Given Loperamide HCl (Imodium) 2 mg PO Q4H PRN PRN Reason: Diarrhea Lorazepam (Ativan) 0.5 mg PO HS [facility] Last Admin: 10/15/16 21:34 Dose: Not Given Pantoprazole Sodium (Protonix Ec Tab) 40 mg PO DAILY [facility] Last Admin: 10/16/16 10:21 Dose: 40 mg - Labs Labs: 10/16/16 08:29 10/16/16 08:30 PT 16.0 SECONDS (9.7-12.2) H 10/13/16 11:04 INR 1.4 10/13/16 11:04 APTT 27 SECONDS (21-34) 10/13/16 11:04 - Constitutional Appears: Non-toxic - Head Exam Head Exam: NORMOCEPHALIC - Eye Exam Eye Exam: PERRL. absent: Scleral icterus - ENT Exam ENT Exam: Mucous Membranes Dry, Normal External Ear Exam - Neck Exam Neck Exam: absent: Lymphadenopathy - Respiratory Exam Respiratory Exam: Decreased Breath Sounds, Clear to Ausculation Bilateral - Cardiovascular Exam Cardiovascular Exam: REGULAR RHYTHM - GI/Abdominal Exam GI & Abdominal Exam: Distended, Soft Assessment and Plan (1) Anemia Status: Acute (2) Myelodysplasia, high grade Status: Acute (3) Positive blood culture Status: Acute (4) UTI (urinary tract infection) Status: Acute (5) Anemia associated with nutritional deficiency Status: Acute (6) Bronchitis Status: Acute (7) Diabetes mellitus type 2 in obese Status: Acute
[2016-10-16] MEDS ORDERED: Potassium Chloride 20 mEq/15 ml LIQ UD PO ONE (12:49)
[2016-10-16] MEDS: EPOETIN ALFA 10,000 UNIT/ML ML SC SCH (13:47)
--- NOTE | 2016-10-16 13:50 | CON ---
DATE: 10/16/2016 Thank you for asking me to see this 75-year-old lady who is a nonsmoker with a history of anemia, diarrhea, hypertension, diabetes mellitus and sepsis and urinary tract infection, is now admitted because her lab report was abnormal including symptoms of weakness, shortness of breath on exertion, easy tiredness with leg discomfort, occasional cough with mucoid sputum. There was no chest pain or dizzy spells. There are no recent falls. There was no hemoptysis or chills, was no vomiting. She is a nonsmoker, does not consume alcohol. ALLERGIES: REPORTS NO ALLERGY TO MEDICINES EXCEPT GADOLINIUM CONTAINING CONTRAST MEDIA WITH WHICH SHE COMPLAINS OF ITCHING. PAST MEDICAL HISTORY: Includes anemia, hypertension, hypertensive cardiovascular disease, diabetes mellitus, urosepsis and diarrhea. PHYSICAL EXAMINATION: GENERAL: She is alert, oriented, afebrile, not in acute distress. HEENT: Unremarkable. NECK: Supple. Lymph nodes unremarkable. HEART: Regular with no gallop rhythm. LUNGS: Diminished breath sounds over lung bases. ABDOMEN: Soft. EXTREMITIES: Legs, chronic edema of lymphedema type with not much pitting. NEUROLOGIC: Deep tendon reflexes are diminished. Plantars unremarkable. Motor , there is general weakness. VITAL SIGNS: At the moment, she is afebrile with blood pressure of 160/72, pulse 72, respiration 20 and hemoglobin oxygen saturation is 98%. Her white count is 6300, hemoglobin 8.2 and platelet count is 30,000. Serum potassium is 3.4, BUN 19, creatinine 0.8, sodium 139 and glucose 107, alkaline phosphatase 152. Serum albumin is 2.8. Chest x-ray shows bilateral basal and mid zone haze, which is partly appears to be from breast shadows and in the lung leo, there are prominent interstitial vascular markings. IMPRESSION: Respiratory insufficiency, bronchitis, sepsis, urosepsis, hypertensive cardiovascular disease, congestive heart failure, anemia, diabetes mellitus. PLAN AND RECOMMENDATIONS: Agree with the current management. Recommend septic workup, antibiotics, bronchodilators, vasodilators, oxygen therapy, DVT prophylaxis and continue with ID and hematology/oncology followup. Further lab workup should include thyroid profile, ABG, sputum test and other measures. Abundio Melony Tanma MD cc: [id number] TT: 10/16/2016 13:49:33 Confirmation # [id number] Dictation # [id number] en MTDD
[2016-10-16 14:07] LABS: ABG ALLEN TEST A; ARTERIAL BLOOD GAS HCO3 24.1 mmol/L (21-28); ARTERIAL BLOOD GAS HEMOGLOBIN 8.5 g/dL (11.7-17.4); ARTERIAL BLOOD GAS O2 SAT 99.3 % (95-98); ARTERIAL BLOOD GAS PCO2 38 mm/Hg (35-45); ARTERIAL BLOOD GAS PO2 110 mm/Hg (80-100); ARTERIAL BLOOD GAS TCO2 24.7 mmol/L (22-28)
[2016-10-16 14:37] LABS: HEMOGLOBIN 8.5 g/dL (11.0-16.0); LYMPH # 1.2 K/uL (1.0-4.3); LYMPH % 19.9 % (20.0-40.0); MEAN CELL VOLUME 91.7 fL (81.0-99.0); MEAN CORPUSCULAR HEMOGLOBIN 28.2 pg (27.0-31.0); MEAN CORPUSCULAR HGB CONC 30.8 g/dL (33.0-37.0); MEAN PLATELET VOLUME 9.8 fL (7.2-11.7); MONO # 1.7 K/uL (0.0-0.8); MONO % 29.4 % (0.0-10.0); NEUT % 50.7 % (50.0-75.0); NRBC % 1.4 % (0.0-2.0); RBC 3.02 Mil/uL (3.80-5.20); RED CELL DISTRIBUTION WIDTH 20.8 % (11.5-14.5); WHITE BLOOD COUNT 5.8 K/uL (4.8-10.8)
[2016-10-16 14:45] LABS: PLATELET COUNT 30 K/uL (130-400)
--- NOTE | 2016-10-16 15:13 | RAD ---
Chest x-ray single frontal view History: Congestive heart failure. Comparison: 10/12/2016 Findings: Prominent increased interstitial lung markings throughout both lungs suggestive for moderate to severe venous congestion and or infiltrate. Loculated opacity at the left lung base suggestive for loculated pleural effusion and/or consolidation. Posttreatment followup would be helpful to exclude residual lesion. Bilateral hilar prominence. Cardiomegaly. Degenerative changes in the spine and shoulders. Impression: Prominent increased interstitial lung markings throughout both lungs suggestive for moderate to severe venous congestion and or infiltrate. Loculated opacity at the left lung base suggestive for loculated pleural effusion and/or consolidation. Posttreatment followup would be helpful to exclude residual lesion. Bilateral hilar prominence. Cardiomegaly.
[2016-10-16 16:09] LABS: LYMPHOCYTE 23 % (20-40); MONOCYTE 26 % (0-10); NEUTROPHIL 51 % (50-75); NUCLEATED RED BLOOD CELL 1 % (0-0); PLATELET ESTIMATE MARKEDLY DECREASED (NORMAL); TOTAL CELLS COUNTED 100
[2016-10-16 16:10] LABS: ANISOCYTOSIS MODERATE; HYPOCHROMIC MODERATE; LARGE PLATELETS PRESENT; MICROCYTOSIS SLIGHT; POIKILOCYTOSIS MODERATE; TARGET CELLS SLIGHT
[2016-10-16] MEDS: (Lantus) Insulin Glargine, Recombinant SC SCH (21:41)
[2016-10-17] MEDS: Albuterol 0.042% Inhal Sol (1.25 mg/3 mL) UD INH SCH ×3 (01:41→13:48)
[2016-10-17] MEDS: AMPicillin 2 GM in Sodium Chloride 0.9% 100 ML IVPB SCH ×4 (04:00→22:08)
[2016-10-17 08:37] LABS: BASO % 0.4 % (0.0-2.0); HEMOGLOBIN 8.2 g/dL (11.0-16.0); LYMPH # 1.2 K/uL (1.0-4.3); LYMPH % 24.5 % (20.0-40.0); MEAN CELL VOLUME 91.3 fL (81.0-99.0); MEAN CORPUSCULAR HEMOGLOBIN 28.9 pg (27.0-31.0); MEAN CORPUSCULAR HGB CONC 31.6 g/dL (33.0-37.0); MEAN PLATELET VOLUME 7.6 fL (7.2-11.7); MONO # 1.6 K/uL (0.0-0.8); MONO % 32.4 % (0.0-10.0); NEUT # 2.1 K/uL (1.8-7.0); NEUT % 42.7 % (50.0-75.0); NRBC % 1.6 % (0.0-2.0); RBC 2.83 Mil/uL (3.80-5.20)
[2016-10-17 08:43] LABS: ALBUMIN 2.6 g/dL (3.5-5.0)
[2016-10-17 08:44] LABS: PLATELET COUNT 19 K/uL (130-400)
[2016-10-17 08:46] LABS: ALB/GLOB RATIO 0.5 (1.0-2.1); AST/SGOT 12 U/L (14-36); GFR AFRICAN-AMERICAN > 60; GFR NON-AFRICAN AMERICAN > 60
[2016-10-17 08:47] LABS: ALT/SGPT 7 U/L (9-52); BLOOD UREA NITROGEN 21 mg/dL (7-17); CALCIUM 7.9 mg/dl (8.6-10.4)
[2016-10-17 09:47] LABS: LYMPHOCYTE 27 % (20-40); MONOCYTE 25 % (0-10); NEUTROPHIL 48 % (50-75); NUCLEATED RED BLOOD CELL 1 % (0-0); PLATELET ESTIMATE MARKEDLY DECREASED (NORMAL); TOTAL CELLS COUNTED 100
[2016-10-17 09:48] LABS: ANISOCYTOSIS SLIGHT; BURR CELLS SLIGHT; HYPOCHROMIC SLIGHT; MICROCYTOSIS SLIGHT; POIKILOCYTOSIS SLIGHT; TEARDROP CELLS SLIGHT
[2016-10-17 09:49] LABS: GIANT PLATELETS PRESENT; LARGE PLATELETS PRESENT
[2016-10-17] MEDS: Pantoprazole 40 mg EC Tab PO SCH (10:38)
--- NOTE | 2016-10-17 12:12 | PN ---
DATE: 10/17/2016 SUBJECTIVE: The patient is alert, oriented. PHYSICAL EXAMINATION: VITAL SIGNS: She is afebrile with blood pressure 158/74, pulse 94, respirations 20, hemoglobin oxygen saturation of 95%. She feels a little better after blood transfusion. Her dyspnea is decreased. There is no chest pain, but general body aching persists. HEART: Regular, no gallop rhythm. LUNGS: Diminished breath sounds over the lung bases. Rhonchi nil. ABDOMEN: Soft. EXTREMITIES: Legs: Bilateral leg edema present. LABORATORY DATA: White count 5000, hemoglobin 8.2, platelet count 19,000. Her ABGs on FIO2 of 28% show pH of 7.4, pCO2 of 38, pO2 110 and bicarbonate of 24. Chest x-ray shows bilateral haze with increased haziness within the left base greater than right and left costophrenic angle is blunted probably from pleural effusion. We will do a CT scan. IMPRESSION: Respiratory insufficiency, bronchitis, pneumonitis, sepsis, anemia , arthritis, diabetes mellitus. PLAN: To continue with the current medication. Continue with infectious disease followup. Abundio Silva MD cc: [id number] TT: 10/17/2016 12:11:38 Confirmation # [id number] Dictation # [id number] tn [id number]
--- NOTE | 2016-10-17 14:04 | CT ---
PROCEDURE: CT Chest without contrast HISTORY: lung infilterate COMPARISON: None. TECHNIQUE: Contiguous axial images were obtained through the chest without intravenous contrast enhancement. Sagittal and coronal reconstructions were performed. Radiation dose (DLP): 798 mGy-cm. This CT exam was performed using one or more of the following dose reduction techniques: Automated exposure control, adjustment of the mA and/or kV according to patient size, and/or use of iterative reconstruction technique. FINDINGS: LUNGS: Re-demonstration of diffuse bilateral infiltrates with areas of consolidation in the right upper lobe which is new since prior examination. Visualized airway clear. MEDIASTINUM: Unremarkable thoracic aorta. No aneurysm. Normal sized heart. Main pulmonary artery unremarkable. No vascular congestion. No lymphadenopathy. PLEURA: Small bilateral pleural effusions. BONES: No fracture. No destructive lesion. UPPER ABDOMEN: Grossly unremarkable. OTHER FINDINGS: With large hiatal hernia. Re-demonstration a multinodular thyroid goiter. IMPRESSION: Worsening bilateral infiltrates particularly in the right upper lobe with large area of consolidation. Small bilateral pleural effusions.
--- NOTE | 2016-10-17 20:48 | CP.PCM.PN ---
Subjective - Date & Time of Evaluation Date of Evaluation: 10/17/16 Time of Evaluation: 20:45 - Subjective Subjective: The patient seems better, awake, alert, no active bleeding reported by the nurses. No fevers, some ecchymoses on upper extremity, Hgb mildly decreased, platelets lower today Objective - Vital Signs/Intake and Output Vital Signs (last 24 hours): Temp Pulse Resp BP Pulse Ox 98.7 F 80 20 147/66 98 10/17/16 16:00 10/17/16 16:00 10/17/16 16:00 10/17/16 16:00 10/17/16 16:00 Intake and Output: 10/17/16 10/18/16 18:59 06:59 Intake Total 500 Balance 500 - Medications Medications: Current Medications Albuterol Sulfate (Albuterol 0.042% Inhal Tricia (1.25mg/3ml) Ud) 1.25 mg INH RQ6 [facility] Last Admin: 10/17/16 13:48 Dose: 1.25 mg Bumetanide (Bumex) 0.5 mg PO ONCE ONE Stop: 10/18/16 06:01 Bumetanide (Bumex) 0.5 mg PO DAILY [facility] Enalapril Maleate (Vasotec) 20 mg PO DAILY [facility] Last Admin: 10/17/16 10:40 Dose: 20 mg Epoetin Arturo (Procrit) 10,000 unit SC MWF [facility] Last Admin: 10/16/16 13:47 Dose: 10,000 unit Ferrous Sulfate (Feosol) 325 mg PO DAILY [facility] Last Admin: 10/17/16 10:38 Dose: 325 mg Furosemide (Lasix) 20 mg IVP DAILY [facility] Tigecycline 50 mg/ Sodium (Chloride) 100 mls @ 100 mls/hr IVPB Q12H [facility] Last Admin: 10/17/16 16:16 Dose: 100 mls/hr Ampicillin 2 gm/ Sodium (Chloride) 100 mls @ 100 mls/hr IVPB Q6H [facility] Last Admin: 10/17/16 16:14 Dose: Not Given Insulin Glargine (Lantus) 16 unit SC HS [facility] Last Admin: 10/16/16 21:41 Dose: 16 unit Loperamide HCl (Imodium) 2 mg PO Q4H PRN PRN Reason: Diarrhea Lorazepam (Ativan) 0.5 mg PO HS [facility] Last Admin: 10/16/16 21:51 Dose: Not Given Pantoprazole Sodium (Protonix Ec Tab) 40 mg PO DAILY [facility] Last Admin: 10/17/16 10:38 Dose: 40 mg - Labs Labs: 10/17/16 08:17 10/17/16 08:17 PT 16.0 SECONDS (9.7-12.2) H 10/13/16 11:04 INR 1.4 10/13/16 11:04 APTT 27 SECONDS (21-34) 10/13/16 11:04 Assessment and Plan (1) Myelodysplasia, high grade Assessment & Plan: Stable counts, except for platelets, which are decreasing, may need transfusions if they continue to drop below 10K. Status: Acute
[2016-10-17] MEDS: (Lantus) Insulin Glargine, Recombinant SC SCH (22:08)
--- NOTE | 2016-10-17 23:20 | CP.PCM.PN ---
Subjective - Date & Time of Evaluation Date of Evaluation: 10/17/16 Time of Evaluation: 13:20 - Subjective Subjective: Patient resting in bed with no distress. Platlets 17,000 today. Continue IV antibiotic therapy. May need tranfusion. She was started on spironalactone. Objective - Vital Signs/Intake and Output Vital Signs (last 24 hours): Temp Pulse Resp BP Pulse Ox 98.7 F 80 20 147/66 98 10/17/16 16:00 10/17/16 16:00 10/17/16 16:00 10/17/16 16:00 10/17/16 16:00 Intake and Output: 10/17/16 10/18/16 18:59 06:59 Intake Total 500 Balance 500 - Medications Medications: Current Medications Albuterol Sulfate (Albuterol 0.042% Inhal Tricia (1.25mg/3ml) Ud) 1.25 mg INH RQ6 [facility] Last Admin: 10/17/16 13:48 Dose: 1.25 mg Bumetanide (Bumex) 0.5 mg PO ONCE ONE Stop: 10/18/16 06:01 Bumetanide (Bumex) 0.5 mg PO DAILY [facility] Enalapril Maleate (Vasotec) 20 mg PO DAILY [facility] Last Admin: 10/17/16 10:40 Dose: 20 mg Epoetin Arturo (Procrit) 10,000 unit SC MWF [facility] Last Admin: 10/16/16 13:47 Dose: 10,000 unit Ferrous Sulfate (Feosol) 325 mg PO DAILY [facility] Last Admin: 10/17/16 10:38 Dose: 325 mg Furosemide (Lasix) 20 mg IVP DAILY [facility] Tigecycline 50 mg/ Sodium (Chloride) 100 mls @ 100 mls/hr IVPB Q12H [facility] Last Admin: 10/17/16 16:16 Dose: 100 mls/hr Ampicillin 2 gm/ Sodium (Chloride) 100 mls @ 100 mls/hr IVPB Q6H [facility] Last Admin: 10/17/16 22:08 Dose: 100 mls/hr Insulin Glargine (Lantus) 16 unit SC HS [facility] Last Admin: 10/17/16 22:08 Dose: 16 unit Loperamide HCl (Imodium) 2 mg PO Q4H PRN PRN Reason: Diarrhea Last Admin: 10/17/16 22:10 Dose: 2 mg Lorazepam (Ativan) 0.5 mg PO [facility] Last Admin: 10/17/16 22:10 Dose: Not Given Pantoprazole Sodium (Protonix Ec Tab) 40 mg PO DAILY [facility] Last Admin: 10/17/16 10:38 Dose: 40 mg - Labs Labs: 10/17/16 08:17 10/17/16 08:17 PT 16.0 SECONDS (9.7-12.2) H 10/13/16 11:04 INR 1.4 10/13/16 11:04 APTT 27 SECONDS (21-34) 10/13/16 11:04 - Constitutional Appears: No Acute Distress - Head Exam Head Exam: NORMAL INSPECTION - Eye Exam Eye Exam: Normal appearance Pupil Exam: NORMAL ACCOMODATION - ENT Exam ENT Exam: Normal Exam - Neck Exam Neck Exam: Normal Inspection - Respiratory Exam Respiratory Exam: Decreased Breath Sounds - Cardiovascular Exam Cardiovascular Exam: REGULAR RHYTHM - GI/Abdominal Exam GI & Abdominal Exam: Normal Bowel Sounds - Rectal Exam Rectal Exam: Deferred - Exam External exam: NORMAL EXTERNAL EXAM - Extremities Exam Extremities Exam: Pedal Edema - Back Exam Back Exam: NORMAL INSPECTION - Neurological Exam Neurological Exam: Oriented x3 - Psychiatric Exam Psychiatric exam: Depressed - Skin Skin Exam: Dry Assessment and Plan (1) Anemia Status: Acute (2) Positive blood culture Status: Acute (3) UTI (urinary tract infection) Status: Acute (4) Degenerative disc disease at L5-S1 level Status: Acute (5) Diabetes mellitus type 2 in obese Status: Acute (6) Myelodysplasia, high grade Status: Acute
[2016-10-18] MEDS: Albuterol 0.042% Inhal Sol (1.25 mg/3 mL) UD INH SCH ×4 (02:33→19:54)
[2016-10-18] MEDS: AMPicillin 2 GM in Sodium Chloride 0.9% 100 ML IVPB SCH ×2 (03:30→10:14)
[2016-10-18 07:56] LABS: HEMOGLOBIN 8.5 g/dL (11.0-16.0); MEAN CELL VOLUME 91.2 fL (81.0-99.0); MEAN CORPUSCULAR HGB CONC 31.5 g/dL (33.0-37.0); WHITE BLOOD COUNT 5.1 K/uL (4.8-10.8)
[2016-10-18 08:14] LABS: BASO % 0.2 % (0.0-2.0); EOS % 0.3 % (0.0-4.0); LYMPH % 19.8 % (20.0-40.0); MEAN CORPUSCULAR HEMOGLOBIN 28.7 pg (27.0-31.0); MONO # 1.6 K/uL (0.0-0.8); MONO % 32.1 % (0.0-10.0); NEUT # 2.4 K/uL (1.8-7.0); NEUT % 47.6 % (50.0-75.0); NRBC % 1.8 % (0.0-2.0); PLATELET COUNT 35 K/uL (130-400); RBC 2.94 Mil/uL (3.80-5.20); RED CELL DISTRIBUTION WIDTH 20.8 % (11.5-14.5)
[2016-10-18 08:33] LABS: ALBUMIN 2.5 g/dL (3.5-5.0)
[2016-10-18 08:36] LABS: ALB/GLOB RATIO 0.5 (1.0-2.1); AST/SGOT 13 U/L (14-36); BLOOD UREA NITROGEN 18 mg/dL (7-17); GFR AFRICAN-AMERICAN > 60; GFR NON-AFRICAN AMERICAN > 60
[2016-10-18 08:37] LABS: CALCIUM 7.9 mg/dl (8.6-10.4)
[2016-10-18 08:38] LABS: ALT/SGPT < 6 U/L (9-52)
[2016-10-18 09:16] LABS: LYMPHOCYTE 27 % (20-40); MONOCYTE 29 % (0-10); NEUTROPHIL 44 % (50-75); PLATELET ESTIMATE MARKEDLY DECREASED (NORMAL); TOTAL CELLS COUNTED 100
[2016-10-18 09:17] LABS: ANISOCYTOSIS SLIGHT; GIANT PLATELETS PRESENT; HYPOCHROMIC SLIGHT; LARGE PLATELETS PRESENT; MICROCYTOSIS SLIGHT; POIKILOCYTOSIS SLIGHT; TARGET CELLS SLIGHT
[2016-10-18] MEDS: EPOETIN ALFA 10,000 UNIT/ML ML SC SCH (10:15)
[2016-10-18] MEDS: Pantoprazole 40 mg EC Tab PO SCH (10:15)
[2016-10-18] MEDS ORDERED: Potassium Chloride 20 mEq ER Tab PO SCH (12:15)
--- NOTE | 2016-10-18 12:44 | PN ---
DATE: 10/18/2016 PHYSICAL EXAMINATION: VITAL SIGNS: She is afebrile with blood pressure 154/72, pulse 74, respirations 18, hemoglobin oxyge n saturation of 97%. GENERAL: The patient is alert, oriented. The patient's dyspnea is better. There is no chest pain, but general body aches persist. HEART: Regular. There is no gallop rhythm. LUNGS: Diminished breath sounds over lung bases. Rhonchi decreased. ABDOMEN: Soft. EXTREMITIES: Legs, no pitting edema present. LABORATORY DATA: Her white count is 5100, hemoglobin 8.5 and platelet count is 35,000, which has thanh e up from 19,000 yesterday. Her BUN is 19, creatinine 0.7, potassium 3.5, sodium 140. Chest x-ray showed congestive changes with small pleural effusion in the left basal area. The patien t has been given diuretics because of serum potassium in the low range at 3.5. Will give her potassi um chloride supplement. IMPRESSION: Respiratory insufficiency, hypertensive cardiovascular disease, congestive heart failure , sepsis, pneumonitis, urosepsis, anemia, thrombocytopenia. The patient was seen by infectious disea se and hematology. PLAN: Continue with the current regimen including bronchodilators, vasodilators, antibiotics and diu retics. Abundio Silva MD cc: [id number] TT: 10/18/2016 12:43:20 Confirmation # [id number] Dictation # [id number] brisa
--- NOTE | 2016-10-18 15:00 | CP.PCM.PN ---
Subjective - Date & Time of Evaluation Date of Evaluation: 10/18/16 Time of Evaluation: 09:00 - Subjective Subjective: picc grew staph blood + MDR- Klebs needs 14 days IV Tygacil Objective - Vital Signs/Intake and Output Vital Signs (last 24 hours): Temp Pulse Resp BP Pulse Ox 97.7 F 89 18 174/81 H 97 10/18/16 08:20 10/18/16 10:13 10/18/16 08:20 10/18/16 10:15 10/18/16 08:20 - Medications Medications: Current Medications Albuterol Sulfate (Albuterol 0.042% Inhal Tricia (1.25mg/3ml) Ud) 1.25 mg INH RQ6 [facility] Last Admin: 10/18/16 14:09 Dose: 1.25 mg Bumetanide (Bumex) 0.5 mg PO DAILY [facility] Enalapril Maleate (Vasotec) 20 mg PO DAILY [facility] Last Admin: 10/18/16 10:15 Dose: 20 mg Epoetin Arturo (Procrit) 10,000 unit SC MWF [facility] Last Admin: 10/18/16 10:15 Dose: 10,000 unit Ferrous Sulfate (Feosol) 325 mg PO DAILY [facility] Last Admin: 10/18/16 10:15 Dose: 325 mg Tigecycline 50 mg/ Sodium (Chloride) 100 mls @ 100 mls/hr IVPB Q12H [facility] Last Admin: 10/18/16 04:23 Dose: 100 mls/hr Insulin Glargine (Lantus) 16 unit SC HS [facility] Last Admin: 10/17/16 22:08 Dose: 16 unit Loperamide HCl (Imodium) 2 mg PO Q4H PRN PRN Reason: Diarrhea Last Admin: 10/17/16 22:10 Dose: 2 mg Lorazepam (Ativan) 0.5 mg PO HS [facility] Last Admin: 10/17/16 22:10 Dose: Not Given Pantoprazole Sodium (Protonix Ec Tab) 40 mg PO DAILY [facility] Last Admin: 10/18/16 10:15 Dose: 40 mg Potassium Chloride (K-Dur 20 Meq Er Tab) 20 meq PO DAILY [facility] Last Admin: 10/18/16 12:53 Dose: 20 meq - Labs Labs: 10/18/16 07:48 10/18/16 07:48 PT 16.0 SECONDS (9.7-12.2) H 10/13/16 11:04 INR 1.4 10/13/16 11:04 APTT 27 SECONDS (21-34) 10/13/16 11:04 - Constitutional Appears: Non-toxic, Chronically Ill - Head Exam Head Exam: NORMOCEPHALIC - Eye Exam Eye Exam: PERRL. absent: Scleral icterus - ENT Exam ENT Exam: Mucous Membranes Dry, Normal External Ear Exam - Neck Exam Neck Exam: absent: Lymphadenopathy - Respiratory Exam Respiratory Exam: Decreased Breath Sounds, Clear to Ausculation Bilateral - Cardiovascular Exam Cardiovascular Exam: REGULAR RHYTHM - GI/Abdominal Exam GI & Abdominal Exam: Distended, Soft. absent: Tenderness - Rectal Exam Rectal Exam: Deferred - Exam Exam: NORMAL INSPECTION - Extremities Exam Extremities Exam: absent: Pedal Edema - Back Exam Back Exam: absent: CVA tenderness (L), CVA tenderness (R) Assessment and Plan (1) Anemia Status: Acute (2) Myelodysplasia, high grade Status: Acute (3) Positive blood culture Status: Acute (4) UTI (urinary tract infection) Status: Acute (5) Anemia associated with nutritional deficiency Status: Acute (6) Bronchitis Status: Acute (7) Diabetes mellitus type 2 in obese Status: Acute
--- NOTE | 2016-10-18 22:37 | CP.PCM.PN ---
Subjective - Date & Time of Evaluation Date of Evaluation: 10/18/16 Time of Evaluation: 13:25 - Subjective Subjective: Patient in no distress. Hct 26, platlets 35,000. Continue antibiotic therapy . Patient evaluated by Dr Prabhakar. Objective - Vital Signs/Intake and Output Vital Signs (last 24 hours): Temp Pulse Resp BP Pulse Ox 98.3 F 78 20 185/69 H 97 10/18/16 17:53 10/18/16 17:53 10/18/16 17:53 10/18/16 17:53 10/18/16 17:53 Intake and Output: 10/18/16 10/19/16 18:59 06:59 Intake Total 560 Balance 560 - Medications Medications: Current Medications Albuterol Sulfate (Albuterol 0.042% Inhal Tricia (1.25mg/3ml) Ud) 1.25 mg INH RQ6 [facility] Last Admin: 10/18/16 19:54 Dose: 1.25 mg Bumetanide (Bumex) 0.5 mg PO DAILY [facility] Enalapril Maleate (Vasotec) 20 mg PO DAILY [facility] Last Admin: 10/18/16 10:15 Dose: 20 mg Epoetin Arturo (Procrit) 10,000 unit SC MWF [facility] Last Admin: 10/18/16 10:15 Dose: 10,000 unit Ferrous Sulfate (Feosol) 325 mg PO DAILY [facility] Last Admin: 10/18/16 10:15 Dose: 325 mg Tigecycline 50 mg/ Sodium (Chloride) 100 mls @ 100 mls/hr IVPB Q12H [facility] Last Admin: 10/18/16 17:55 Dose: 100 mls/hr Insulin Glargine (Lantus) 16 unit SC HS [facility] Last Admin: 10/17/16 22:08 Dose: 16 unit Loperamide HCl (Imodium) 2 mg PO Q4H PRN PRN Reason: Diarrhea Last Admin: 10/17/16 22:10 Dose: 2 mg Lorazepam (Ativan) 0.5 mg PO HS [facility] Last Admin: 10/18/16 21:47 Dose: Not Given Pantoprazole Sodium (Protonix Ec Tab) 40 mg PO DAILY [facility] Last Admin: 10/18/16 10:15 Dose: 40 mg Potassium Chloride (K-Dur 20 Meq Er Tab) 20 meq PO DAILY [facility] Last Admin: 10/18/16 12:53 Dose: 20 meq - Labs Labs: 10/18/16 07:48 10/18/16 07:48 PT 16.0 SECONDS (9.7-12.2) H 10/13/16 11:04 INR 1.4 10/13/16 11:04 APTT 27 SECONDS (21-34) 10/13/16 11:04 - Constitutional Appears: No Acute Distress - Head Exam Head Exam: NORMAL INSPECTION - Eye Exam Eye Exam: Normal appearance Pupil Exam: NORMAL ACCOMODATION - ENT Exam ENT Exam: Normal Exam - Neck Exam Neck Exam: Normal Inspection - Respiratory Exam Respiratory Exam: Decreased Breath Sounds - Cardiovascular Exam Cardiovascular Exam: REGULAR RHYTHM - GI/Abdominal Exam GI & Abdominal Exam: Normal Bowel Sounds - Rectal Exam Rectal Exam: Deferred - Exam External exam: NORMAL EXTERNAL EXAM - Extremities Exam Extremities Exam: Pedal Edema - Back Exam Back Exam: NORMAL INSPECTION - Neurological Exam Neurological Exam: Oriented x3 - Psychiatric Exam Psychiatric exam: Depressed - Skin Skin Exam: Dry Assessment and Plan (1) Anemia Status: Acute (2) Positive blood culture Status: Acute (3) UTI (urinary tract infection) Status: Acute (4) Degenerative disc disease at L5-S1 level Status: Acute (5) Diabetes mellitus type 2 in obese Status: Acute (6) Myelodysplasia, high grade Status: Acute
[2016-10-18] MEDS: (Lantus) Insulin Glargine, Recombinant SC SCH (22:49)
[2016-10-19] MEDS: Albuterol 0.042% Inhal Sol (1.25 mg/3 mL) UD INH SCH ×4 (01:13→19:35)
[2016-10-19 09:01] LABS: HEMOGLOBIN 8.5 g/dL (11.0-16.0); LYMPH # 1.3 K/uL (1.0-4.3); MONO # 1.7 K/uL (0.0-0.8); NEUT % 49.4 % (50.0-75.0); NRBC % 1.9 % (0.0-2.0)
[2016-10-19 09:05] LABS: BASO % 0.4 % (0.0-2.0); EOS % 0.1 % (0.0-4.0); LYMPH % 21.1 % (20.0-40.0); MEAN CELL VOLUME 91.1 fL (81.0-99.0); MEAN CORPUSCULAR HEMOGLOBIN 28.8 pg (27.0-31.0); MEAN CORPUSCULAR HGB CONC 31.6 g/dL (33.0-37.0); MEAN PLATELET VOLUME 12.1 fL (7.2-11.7); PLATELET COUNT 34 K/uL (130-400); RBC 2.95 Mil/uL (3.80-5.20); RED CELL DISTRIBUTION WIDTH 20.1 % (11.5-14.5)
[2016-10-19 09:14] LABS: GFR AFRICAN-AMERICAN > 60; GFR NON-AFRICAN AMERICAN > 60
[2016-10-19 09:15] LABS: BLOOD UREA NITROGEN 17 mg/dL (7-17); CALCIUM 8.1 mg/dl (8.6-10.4)
[2016-10-19 09:58] LABS: LYMPHOCYTE 25 % (20-40); MONOCYTE 27 % (0-10); NEUTROPHIL 48 % (50-75); NUCLEATED RED BLOOD CELL 1 % (0-0); PLATELET ESTIMATE DECREASED (NORMAL); TOTAL CELLS COUNTED 100
[2016-10-19 10:00] LABS: ANISOCYTOSIS SLIGHT; HYPOCHROMIC SLIGHT; MICROCYTOSIS SLIGHT; POIKILOCYTOSIS SLIGHT
[2016-10-19 10:01] LABS: SPHEROCYTES SLIGHT; TEARDROP CELLS SLIGHT
[2016-10-19] MEDS: Pantoprazole 40 mg EC Tab PO SCH (10:35)
[2016-10-19] MEDS: Potassium Chloride 20 mEq/15 ml LIQ UD PO SCH (12:28)
[2016-10-19] MEDS ORDERED: (Lantus) Insulin Glargine, Recombinant SC SCH (15:11)
--- NOTE | 2016-10-19 15:25 | PN ---
DATE: 10/19/2016 GENERAL: The patient is alert, oriented. VITAL SIGNS: She is afebrile with blood pressure 164/90, pulse 78 per minute, respirations 20, hemog lobin oxygen saturation of 95%. The patient's dyspnea is better, is decreasing. There is no chest p ain. HEART: Regular. There is no gallop rhythm. LUNGS: Diminished breath sounds over lung bases. Rhonchi decreased. ABDOMEN: Soft. EXTREMITIES: Legs nonpitting edema. LABORATORY DATA: White count is 6000, hemoglobin 8.5 and platelet count 34,000. Her BUN is 17, crea tinine 0.8 and serum potassium improved and is at 3.9, sodium 137. IMPRESSION: Respiratory insufficiency, hypertensive cardiovascular disease, congestive heart failure , bronchitis, sepsis, pneumonitis and severe anemia with thrombocytopenia. PLAN: To continue with the current measures and follow up with infectious diseases and hematology. Abundio Silva MD cc: [id number] TT: 10/19/2016 15:24:55 Confirmation # [id number] Dictation # [id number] adina
--- NOTE | 2016-10-19 17:34 | CP.PCM.PN ---
Subjective - Date & Time of Evaluation Date of Evaluation: 10/19/16 Time of Evaluation: 16:20 - Subjective Subjective: MEDIATOR NOTES 75 yr old female with PMHX of DM, MDS , admitted for symptomatic anemia , sepsis , blood culture + and on tygacil repeat blood culture negative for 48 hrs D/W Dr. Hawthorne pt needs medi port for future use secondary to recuurent infection woiht picc line hgb 8.6 and plt - 34 D/W Dr. Okeefe regarding medicpot insertion , recoomends platelet to be above 70, 000 D/W Dr. Reed recommends to transfuse 2 unit of platelet before mediport insertion D/W Dr. Okeefe above plan and recommended to transfuse platelet in am and repeat blood work in am and keep patient NPO for intended mediport insertion at 9 am The above plan discussed with Dr. Foster and agrees with plan Objective - Vital Signs/Intake and Output Vital Signs (last 24 hours): Temp Pulse Resp BP Pulse Ox 97.5 F L 84 20 166/72 H 100 10/19/16 15:00 10/19/16 15:00 10/19/16 15:00 10/19/16 15:00 10/19/16 15:00 - Medications Medications: Current Medications Acetaminophen (Tylenol 325mg Tab) 650 mg PO ONCE ONE Stop: 10/20/16 02:01 Albuterol Sulfate (Albuterol 0.042% Inhal Tricia (1.25mg/3ml) Ud) 1.25 mg INH RQ6 [facility] Last Admin: 10/19/16 14:05 Dose: 1.25 mg Bumetanide (Bumex) 0.5 mg PO DAILY [facility] Last Admin: 10/19/16 10:36 Dose: 0.5 mg Enalapril Maleate (Vasotec) 20 mg PO DAILY [facility] Last Admin: 10/19/16 10:35 Dose: 20 mg Epoetin Arturo (Procrit) 10,000 unit SC MWF [facility] Last Admin: 10/18/16 10:15 Dose: 10,000 unit Ferrous Sulfate (Feosol) 325 mg PO DAILY [facility] Last Admin: 10/19/16 10:35 Dose: 325 mg Tigecycline 50 mg/ Sodium (Chloride) 100 mls @ 100 mls/hr IVPB Q12H [facility] Last Admin: 10/19/16 16:47 Dose: 100 mls/hr Insulin Glargine (Lantus) 12 unit SC HS [facility] Loperamide HCl (Imodium) 2 mg PO Q4H PRN PRN Reason: Diarrhea Last Admin: 10/17/16 22:10 Dose: 2 mg Lorazepam (Ativan) 0.5 mg PO HS [facility] Last Admin: 10/18/16 21:47 Dose: Not Given Pantoprazole Sodium (Protonix Ec Tab) 40 mg PO DAILY [facility] Last Admin: 10/19/16 10:35 Dose: 40 mg Potassium Chloride (Potassium Chloride Oral Soln) 20 meq PO DAILY [facility] Last Admin: 10/19/16 12:28 Dose: 20 meq - Labs Labs: 10/19/16 08:45 10/19/16 08:45 PT 16.0 SECONDS (9.7-12.2) H 10/13/16 11:04 INR 1.4 10/13/16 11:04 APTT 27 SECONDS (21-34) 10/13/16 11:04
--- NOTE | 2016-10-19 23:11 | CP.PCM.PN ---
Subjective - Date & Time of Evaluation Date of Evaluation: 10/19/16 Time of Evaluation: 13:25 - Subjective Subjective: Patient alert and in no distresss. Platlets 34,000. Patient to receive transfusion. Continue IV m\antibiotics. Objective - Vital Signs/Intake and Output Vital Signs (last 24 hours): Temp Pulse Resp BP Pulse Ox 97.5 F L 84 20 166/72 H 100 10/19/16 15:00 10/19/16 15:00 10/19/16 15:00 10/19/16 15:00 10/19/16 15:00 Intake and Output: 10/19/16 10/20/16 18:59 06:59 Intake Total 480 Balance 480 - Medications Medications: Current Medications Acetaminophen (Tylenol 325mg Tab) 650 mg PO ONCE ONE Stop: 10/20/16 02:01 Albuterol Sulfate (Albuterol 0.042% Inhal Tricia (1.25mg/3ml) Ud) 1.25 mg INH RQ6 [facility] Last Admin: 10/19/16 19:35 Dose: 1.25 mg Bumetanide (Bumex) 0.5 mg PO DAILY [facility] Last Admin: 10/19/16 10:36 Dose: 0.5 mg Enalapril Maleate (Vasotec) 20 mg PO DAILY [facility] Last Admin: 10/19/16 10:35 Dose: 20 mg Epoetin Arturo (Procrit) 10,000 unit SC MWF [facility] Last Admin: 10/18/16 10:15 Dose: 10,000 unit Ferrous Sulfate (Feosol) 325 mg PO DAILY [facility] Last Admin: 10/19/16 10:35 Dose: 325 mg Tigecycline 50 mg/ Sodium (Chloride) 100 mls @ 100 mls/hr IVPB Q12H [facility] Last Admin: 10/19/16 16:47 Dose: 100 mls/hr Insulin Glargine (Lantus) 12 unit SC HS [facility] Loperamide HCl (Imodium) 2 mg PO Q4H PRN PRN Reason: Diarrhea Last Admin: 10/17/16 22:10 Dose: 2 mg Lorazepam (Ativan) 0.5 mg PO HS [facility] Last Admin: 10/18/16 21:47 Dose: Not Given Pantoprazole Sodium (Protonix Ec Tab) 40 mg PO DAILY [facility] Last Admin: 06/22/17 10:35 Dose: 40 mg Potassium Chloride (Potassium Chloride Oral Soln) 20 meq PO DAILY [facility] Last Admin: 10/19/16 12:28 Dose: 20 meq - Labs Labs: 10/19/16 08:45 10/19/16 08:45 PT 16.0 SECONDS (9.7-12.2) H 10/13/16 11:04 INR 1.4 10/13/16 11:04 APTT 27 SECONDS (21-34) 10/13/16 11:04 - Constitutional Appears: No Acute Distress - Head Exam Head Exam: NORMAL INSPECTION - Eye Exam Eye Exam: Normal appearance - ENT Exam ENT Exam: Normal Exam - Neck Exam Neck Exam: Normal Inspection - Respiratory Exam Respiratory Exam: Decreased Breath Sounds, NORMAL BREATHING PATTERN - Cardiovascular Exam Cardiovascular Exam: REGULAR RHYTHM - GI/Abdominal Exam GI & Abdominal Exam: Normal Bowel Sounds - Rectal Exam Rectal Exam: Deferred - Exam External exam: NORMAL EXTERNAL EXAM - Extremities Exam Extremities Exam: Joint Swelling - Back Exam Back Exam: NORMAL INSPECTION - Neurological Exam Neurological Exam: Oriented x3 - Psychiatric Exam Psychiatric exam: Depressed - Skin Skin Exam: Dry Assessment and Plan (1) Anemia Status: Acute (2) Positive blood culture Status: Acute (3) UTI (urinary tract infection) Status: Acute (4) Degenerative disc disease at L5-S1 level Status: Acute (5) Diabetes mellitus type 2 in obese Status: Acute (6) Myelodysplasia, high grade Status: Acute
[2016-10-20] MEDS: Albuterol 0.042% Inhal Sol (1.25 mg/3 mL) UD INH SCH ×4 (01:12→19:38)
[2016-10-20 09:14] LABS: MEAN CORPUSCULAR HGB CONC 31.7 g/dL (33.0-37.0); MEAN PLATELET VOLUME 8.6 fL (7.2-11.7)
[2016-10-20 09:23] LABS: BASO % 0.1 % (0.0-2.0); EOS % 0.1 % (0.0-4.0); HEMOGLOBIN 8.8 g/dL (11.0-16.0); LYMPH # 1.5 K/uL (1.0-4.3); LYMPH % 25.2 % (20.0-40.0); MEAN CELL VOLUME 91.3 fL (81.0-99.0); MEAN CORPUSCULAR HEMOGLOBIN 28.9 pg (27.0-31.0); MONO # 1.6 K/uL (0.0-0.8); MONO % 27.3 % (0.0-10.0); NEUT # 2.7 K/uL (1.8-7.0); NEUT % 47.3 % (50.0-75.0); NRBC % 1.4 % (0.0-2.0); RBC 3.03 Mil/uL (3.80-5.20); RED CELL DISTRIBUTION WIDTH 21.3 % (11.5-14.5); WHITE BLOOD COUNT 5.8 K/uL (4.8-10.8)
[2016-10-20 09:26] LABS: PLATELET COUNT 141 K/uL (130-400)
--- NOTE | 2016-10-20 09:34 | CP.PCM.CON ---
History of Present Illness - History of Present Illness History of Present Illness: 75 year old female seen for chronic edema of lower legs with superficial stasis lesions b/l chronic in nature. Past Patient History - Infectious Disease Hx of Infectious Diseases: None - Tetanus Immunizations Tetanus Immunization: Unknown, Up to Date - Past Medical History & Family History Past Medical History?: Yes - Past Social History Smoking Status: Never Smoked Chewing Tobacco Use: No Cigar Use: No Alcohol: None Drugs: Denies Home Situation {Lives}: With Family - CARDIAC Hx Hypertension: Yes - PULMONARY Hx Pneumonia: Yes - NEUROLOGICAL Hx Neurological Disorder: No - HEENT Hx HEENT Problems: No Hx Sinusitis: Yes - RENAL Hx Chronic Kidney Disease: No - ENDOCRINE/METABOLIC Hx Diabetes Mellitus Type 2: Yes - HEMATOLOGICAL/ONCOLOGICAL Hx Anemia: Yes Hx Leukemia: Yes - INTEGUMENTARY Hx Dermatological Problems: No Other/Comment: BLE w/ cauliflowered skin - MUSCULOSKELETAL/RHEUMATOLOGICAL Hx Arthritis: Yes - GASTROINTESTINAL Hx Gastrointestinal Disorders: No - GENITOURINARY/GYNECOLOGICAL Hx Genitourinary Disorders: No - PSYCHIATRIC Hx Substance Use: No - SURGICAL HISTORY Hx Cholecystectomy: Yes (in 2010) - ANESTHESIA Hx Anesthesia: Yes Hx Anesthesia Reactions: No Hx Malignant Hyperthermia: No Meds Allergies/Adverse Reactions: Allergies Allergy/AdvReac Type Severity Reaction Status Date / Time Gadolinium-Containing Allergy ITCHING Verified 07/23/16 20:50 Contrast Medi - Medications Medications: Current Medications Albuterol Sulfate (Albuterol 0.042% Inhal Tricia (1.25mg/3ml) Ud) 1.25 mg INH RQ6 [facility] Last Admin: 10/20/16 07:45 Dose: 1.25 mg Bumetanide (Bumex) 0.5 mg PO DAILY [facility] Last Admin: 10/19/16 10:36 Dose: 0.5 mg Enalapril Maleate (Vasotec) 20 mg PO DAILY [facility] Last Admin: 10/19/16 10:35 Dose: 20 mg Epoetin Arturo (Procrit) 10,000 unit SC MWF [facility] Last Admin: 10/18/16 10:15 Dose: 10,000 unit Ferrous Sulfate (Feosol) 325 mg PO DAILY [facility] Last Admin: 10/19/16 10:35 Dose: 325 mg Tigecycline 50 mg/ Sodium (Chloride) 100 mls @ 100 mls/hr IVPB Q12H [facility] Last Admin: 10/20/16 05:15 Dose: 100 mls/hr Insulin Glargine (Lantus) 12 unit SC HS [facility] Loperamide HCl (Imodium) 2 mg PO Q4H PRN PRN Reason: Diarrhea Last Admin: 10/17/16 22:10 Dose: 2 mg Lorazepam (Ativan) 0.5 mg PO HS [facility] Last Admin: 10/18/16 21:47 Dose: Not Given Pantoprazole Sodium (Protonix Ec Tab) 40 mg PO DAILY [facility] Last Admin: 10/19/16 10:35 Dose: 40 mg Potassium Chloride (Potassium Chloride Oral Soln) 20 meq PO DAILY [facility] Last Admin: 10/19/16 12:28 Dose: 20 meq Results - Vital Signs Recent Vital Signs: Last Vital Signs Temp 98.3 F 10/20/16 07:22 Pulse 76 10/20/16 07:22 Resp 18 10/20/16 07:22 BP 122/71 10/20/16 07:22 Pulse Ox 99 10/20/16 07:22 - Labs Result Diagrams: 10/20/16 09:06 10/19/16 08:45 Labs: Laboratory Results - last 24 hr 10/19/16 10/19/16 10/19/16 08:45 12:41 16:51 WBC RBC Hgb Hct MCV MCH MCHC RDW Plt Count MPV Neut % (Auto) Lymph % (Auto) [place] % (Auto) Eos % (Auto) Baso % (Auto) Neut # Lymph # [place] # Eos # Baso # Neutrophils % (Manual) 48 L Lymphocytes % (Manual) 25 Monocytes % (Manual) 27 H Nucleated RBC % 1 H Platelet Estimate Decreased L Hypochromasia (manual) Slight Poikilocytosis (manual Slight Anisocytosis (manual) Slight Microcytosis (manual) Slight Macrocytosis (manual) Slight Spherocytes Slight Tear Drop Cells Slight POC Glucose (mg/dL) 95 93 10/19/16 10/20/16 10/20/16 21:08 06:24 09:06 WBC 5.8 RBC 3.03 L Hgb 8.8 L Hct 27.7 L MCV 91.3 MCH 28.9 MCHC 31.7 L RDW 21.3 H Plt Count 141 D MPV 8.6 Neut % (Auto) 47.3 L Lymph % (Auto) 25.2 [place] % (Auto) 27.3 H Eos % (Auto) 0.1 Baso % (Auto) 0.1 Neut # 2.7 Lymph # 1.5 [place] # 1.6 H Eos # 0.0 Baso # 0.0 Neutrophils % (Manual) Lymphocytes % (Manual) Monocytes % (Manual) Nucleated RBC % Platelet Estimate Hypochromasia (manual) Poikilocytosis (manual Anisocytosis (manual) Microcytosis (manual) Macrocytosis (manual) Spherocytes Tear Drop Cells POC Glucose (mg/dL) 100 83
[2016-10-20 09:46] LABS: LYMPHOCYTE 25 % (20-40); MONOCYTE 31 % (0-10); NEUTROPHIL 44 % (50-75); TOTAL CELLS COUNTED 100
[2016-10-20 09:47] LABS: ANISOCYTOSIS MODERATE; PLATELET ESTIMATE NORMAL (NORMAL)
[2016-10-20 09:48] LABS: POIKILOCYTOSIS SLIGHT
--- NOTE | 2016-10-20 11:09 | CP.PCM.PN ---
Subjective - Date & Time of Evaluation Date of Evaluation: 10/20/16 Time of Evaluation: 10:30 - Subjective Subjective: Podiatry - Dr. Thompson Patient seen bedside regarding B/L LE lymphedema, Right heel eschar. Patient is seen sitting at edge of bed in NAD. Denies pain to LE. Denies any complications with LE. Admits to SOB, but denies F/C/N/V. Objective - Vital Signs/Intake and Output Vital Signs (last 24 hours): Temp Pulse Resp BP Pulse Ox 98.3 F 76 18 122/71 99 10/20/16 07:22 10/20/16 07:22 10/20/16 07:22 10/20/16 07:22 10/20/16 07:22 Intake and Output: 10/20/16 10/20/16 06:59 18:59 Intake Total 512 Balance 512 - Medications Medications: Current Medications Albuterol Sulfate (Albuterol 0.042% Inhal Tricia (1.25mg/3ml) Ud) 1.25 mg INH RQ6 [facility] Last Admin: 10/20/16 07:45 Dose: 1.25 mg Bumetanide (Bumex) 0.5 mg PO DAILY [facility] Last Admin: 10/19/16 10:36 Dose: 0.5 mg Enalapril Maleate (Vasotec) 20 mg PO DAILY [facility] Last Admin: 10/19/16 10:35 Dose: 20 mg Epoetin Arturo (Procrit) 10,000 unit SC MWF [facility] Last Admin: 10/18/16 10:15 Dose: 10,000 unit Ferrous Sulfate (Feosol) 325 mg PO DAILY [facility] Last Admin: 10/19/16 10:35 Dose: 325 mg Tigecycline 50 mg/ Sodium (Chloride) 100 mls @ 100 mls/hr IVPB Q12H [facility] Last Admin: 10/20/16 05:15 Dose: 100 mls/hr Insulin Glargine (Lantus) 12 unit SC [facility] Loperamide HCl (Imodium) 2 mg PO Q4H PRN PRN Reason: Diarrhea Last Admin: 10/17/16 22:10 Dose: 2 mg Lorazepam (Ativan) 0.5 mg PO HS [facility] Last Admin: 10/18/16 21:47 Dose: Not Given Pantoprazole Sodium (Protonix Ec Tab) 40 mg PO DAILY [facility] Last Admin: 10/19/16 10:35 Dose: 40 mg Potassium Chloride (Potassium Chloride Oral Soln) 20 meq PO DAILY [facility] Last Admin: 10/19/16 12:28 Dose: 20 meq - Labs Labs: 10/20/16 09:06 10/19/16 08:45 PT 16.0 SECONDS (9.7-12.2) H 10/13/16 11:04 INR 1.4 10/13/16 11:04 APTT 27 SECONDS (21-34) 10/13/16 11:04 - Constitutional Appears: No Acute Distress - Extremities Exam Additional comments: LE exam: Derm: B/L lymphedema with brawny edema and chronic lichenification from tibial shaft to feet. Right foot plantar heel eschar, no opening in skin, no drainage , no purulence. Vascular: Dp and PT pulses non-palpable, CFT <3sec, temp unremarkable. Neuro: Protective sensation diminished, light touch sensation intact. MSK: Decreased ROM to LE secondary to edema with weakness. - Neurological Exam Neurological Exam: Alert, Awake, Oriented x3 Assessment and Plan - Assessment and Plan (Free Text) Assessment: 75 y/o female with B/L LE chronic lymphedema and Right plantar heel unstageable eschar. Plan: evaluated and treated with all questions addressed and answered. discussed with Dr. Thompson Right heel eschar dressed with xeroform, DSD, kerlix. B/L LE wrapped with OCHOA bandages. Heel offloading boots applied to patient feet B/L. To be worn at all times when in bed. Patient stable from podiatry standpoint. Will continue to follow while in hospital.
[2016-10-20] MEDS: Pantoprazole 40 mg EC Tab PO SCH (12:03)
[2016-10-20] MEDS: Potassium Chloride 20 mEq/15 ml LIQ UD PO SCH ×2 (12:07→12:08)
[2016-10-20] MEDS: EPOETIN ALFA 10,000 UNIT/ML ML SC SCH (12:14)
[2016-10-20] MEDS ORDERED: Midazolam 2 MG/2 ML VIAL ONE ×2 (14:08→14:24)
[2016-10-20] MEDS ORDERED: Dexmedetomidine Hydrochloride 100 mcg/ml (2ML) ONE (14:08)
[2016-10-20] MEDS ORDERED: Etomidate 20 mg/10ml Inj IV ONE (14:20)
[2016-10-20] MEDS ORDERED: Lidocaine 2% Inj (20ml) ONE ×2 (14:23→16:39)
[2016-10-20] MEDS ORDERED: Lidocaine 1% w Epi 1:100,000 Inj ONE (14:25)
--- NOTE | 2016-10-20 15:39 | PCM.SURG1 ---
Surgeon's Initial Post Op Note - Surgeon's Notes Surgeon: Maldonado Tennis Ball Coverer Hand: Morro Type of Anesthesia: IV Sedation, Local Pre-Operative Diagnosis: MDS Operative Findings: Patent right IJV Post-Operative Diagnosis: MDS Operation Performed: Right chest medication port placement. Specimen/Specimens Removed: None Estimated Blood Loss: EBL {In ML}: 3 Blood Products Given: N/A Drains Used: No Drains Post-Op Condition: Good Date of Surgery/Procedure: 10/20/16 Time of Surgery/Procedure: 15:00
--- NOTE | 2016-10-20 17:08 | CP.PCM.PN ---
Subjective - Date & Time of Evaluation Date of Evaluation: 10/20/16 Time of Evaluation: 17:00 - Subjective Subjective: [place] HELPER NOTES S/P MEDIPORT INSERTION TODAY PLATELET TODAY 143 d/w WITH DR. CURTIS , HOLD FOR PLATELET TRANSFUSION TODAY AND MONITOR PLATELET IF PLT DROPS BELOW 75,000 IN 48 HRS NEED I UNIT OF PLATELET TRANSFUSION Objective - Vital Signs/Intake and Output Vital Signs (last 24 hours): Temp Pulse Resp BP Pulse Ox 98.3 F 76 18 164/76 H 99 10/20/16 07:22 10/20/16 07:22 10/20/16 07:22 10/20/16 12:03 10/20/16 07:22 Intake and Output: 10/20/16 10/20/16 06:59 18:59 Intake Total 512 Balance 512 - Medications Medications: Current Medications Albuterol Sulfate (Albuterol 0.042% Inhal Tricia (1.25mg/3ml) Ud) 1.25 mg INH RQ6 [facility] Last Admin: 10/20/16 13:40 Dose: Not Given Bumetanide (Bumex) 0.5 mg PO DAILY [facility] Last Admin: 10/20/16 12:05 Dose: Not Given Enalapril Maleate (Vasotec) 20 mg PO DAILY [facility] Last Admin: 10/20/16 12:03 Dose: 20 mg Epoetin Arturo (Procrit) 10,000 unit SC MWF [facility] Last Admin: 10/20/16 12:14 Dose: 10,000 unit Ferrous Sulfate (Feosol) 325 mg PO DAILY [facility] Last Admin: 10/20/16 12:03 Dose: 325 mg Tigecycline 50 mg/ Sodium (Chloride) 100 mls @ 100 mls/hr IVPB Q12H [facility] Last Admin: 10/20/16 16:04 Dose: 100 mls/hr Insulin Glargine (Lantus) 12 unit SC HS [facility] Loperamide HCl (Imodium) 2 mg PO Q4H PRN PRN Reason: Diarrhea Last Admin: 10/17/16 22:10 Dose: 2 mg Lorazepam (Ativan) 0.5 mg PO HS [facility] Last Admin: 10/18/16 21:47 Dose: Not Given Pantoprazole Sodium (Protonix Ec Tab) 40 mg PO DAILY [facility] Last Admin: 10/20/16 12:03 Dose: 40 mg Potassium Chloride (Potassium Chloride Oral Soln) 20 meq PO DAILY [facility] Last Admin: 10/20/16 12:08 Dose: 20 meq Tramadol HCl (Ultram) 50 mg PO Q4 PRN PRN Reason: Pain, moderate (4-7) Last Admin: 10/20/16 16:05 Dose: 50 mg - Labs Labs: 10/20/16 09:06 10/19/16 08:45 PT 16.0 SECONDS (9.7-12.2) H 10/13/16 11:04 INR 1.4 10/13/16 11:04 APTT 27 SECONDS (21-34) 10/13/16 11:04
--- NOTE | 2016-10-20 17:17 | SPECPROC ---
Procedure: Ultrasound and fluoroscopic right upper extremity venous access port. Clinical History: Venous port for chronic transfusion for myelodysplastic disease. Procedure: Intravenous sedation was administered by the attending anesthesiologist and continuous physiologic monitoring was carried out throughout the procedure. With the patient in supine position the right upper chest and neck were prepped and draped in the usual sterile fashion. Under ultrasound guidance access was obtained into the right internal jugular vein using a 21-gauge needle. Exchange was made for a 4 Greek catheter. A stiff guidewire was advanced centrally into the IVC. After administration of local anesthesia a 2 cm incision was made approximately 7-9 cm from the venotomy site. A subcutaneous pocket was created using blunt and sharp dissection. The pocket was flushed with saline. An 8 Greek single-lumen long-term central venous access catheter was then tunneled from the subcutaneous pocket to the venotomy site and inserted into the jugular vein using a peel-away sheath. The catheter tip was placed at the SVC/right atrial junction using fluoroscopic guidance. The external end of the catheter was connected to the medication port and the connection was tested using injection and aspiration of saline. The incision was closed using interrupted subcutaneous 2.0 Vicryl and running subcuticular 4.0 Vicryl sutures. The incision was covered with Steri-Strips and a sterile dressing was applied. The patient tolerated the procedure without incident. Postprocedure chest fluoroscopic image was obtained to confirm location of the catheter tip at the SVC right atrial junction. There is no pneumothorax. IMPRESSION: Real-time ultrasound guided cannulation of a patent right internal jugular vein. Ultrasound and fluoroscopically guided insertion of a 8 Greek single lumen central venous access port in the right internal jugular vein.
--- NOTE | 2016-10-20 22:17 | CP.PCM.PN ---
Subjective - Date & Time of Evaluation Date of Evaluation: 10/20/16 Time of Evaluation: 13:40 - Subjective Subjective: Patient had portacath inserted tday after transfusion. Patient's platlets at a safe level for procedure. Will continue to monitor levels. Objective - Vital Signs/Intake and Output Vital Signs (last 24 hours): Temp Pulse Resp BP Pulse Ox 97.4 F L 80 20 164/74 H 98 10/20/16 15:00 10/20/16 15:00 10/20/16 15:00 10/20/16 15:00 10/20/16 15:00 Intake and Output: 10/20/16 10/21/16 18:59 06:59 Intake Total 512 Balance 512 - Medications Medications: Current Medications Albuterol Sulfate (Albuterol 0.042% Inhal Tricia (1.25mg/3ml) Ud) 1.25 mg INH RQ6 [facility] Last Admin: 10/20/16 19:38 Dose: 1.25 mg Bumetanide (Bumex) 0.5 mg PO DAILY [facility] Last Admin: 10/20/16 12:05 Dose: Not Given Enalapril Maleate (Vasotec) 20 mg PO DAILY [facility] Last Admin: 10/20/16 12:03 Dose: 20 mg Epoetin Arturo (Procrit) 10,000 unit SC MWF [facility] Last Admin: 10/20/16 12:14 Dose: 10,000 unit Ferrous Sulfate (Feosol) 325 mg PO DAILY [facility] Last Admin: 10/20/16 12:03 Dose: 325 mg Tigecycline 50 mg/ Sodium (Chloride) 100 mls @ 100 mls/hr IVPB Q12H [facility] Last Admin: 10/20/16 16:04 Dose: 100 mls/hr Insulin Glargine (Lantus) 12 unit SC HS [facility] Loperamide HCl (Imodium) 2 mg PO Q4H PRN PRN Reason: Diarrhea Last Admin: 10/17/16 22:10 Dose: 2 mg Lorazepam (Ativan) 0.5 mg PO HS [facility] Last Admin: 10/20/16 21:20 Dose: Not Given Pantoprazole Sodium (Protonix Ec Tab) 40 mg PO DAILY [facility] Last Admin: 10/20/16 12:03 Dose: 40 mg Potassium Chloride (Potassium Chloride Oral Soln) 20 meq PO DAILY [facility] Last Admin: 10/20/16 12:08 Dose: 20 meq Tramadol HCl (Ultram) 50 mg PO Q4 PRN PRN Reason: Pain, moderate (4-7) Last Admin: 10/20/16 16:05 Dose: 50 mg - Labs Labs: 10/20/16 09:06 10/19/16 08:45 PT 16.0 SECONDS (9.7-12.2) H 10/13/16 11:04 INR 1.4 10/13/16 11:04 APTT 27 SECONDS (21-34) 10/13/16 11:04 - Constitutional Appears: No Acute Distress - Head Exam Head Exam: NORMOCEPHALIC - Eye Exam Eye Exam: Normal appearance Pupil Exam: NORMAL ACCOMODATION - ENT Exam ENT Exam: Normal Exam - Neck Exam Neck Exam: Normal Inspection - Respiratory Exam Respiratory Exam: Decreased Breath Sounds - Cardiovascular Exam Cardiovascular Exam: REGULAR RHYTHM - GI/Abdominal Exam GI & Abdominal Exam: Normal Bowel Sounds - Rectal Exam Rectal Exam: Deferred - Exam External exam: NORMAL EXTERNAL EXAM - Extremities Exam Extremities Exam: Pedal Edema - Back Exam Back Exam: NORMAL INSPECTION - Neurological Exam Neurological Exam: Oriented x3 - Psychiatric Exam Psychiatric exam: Depressed - Skin Skin Exam: Dry Assessment and Plan (1) Anemia Status: Acute (2) Positive blood culture Status: Acute (3) UTI (urinary tract infection) Status: Acute (4) Degenerative disc disease at L5-S1 level Status: Acute (5) Diabetes mellitus type 2 in obese Status: Acute (6) Myelodysplasia, high grade Status: Acute
[2016-10-21] MEDS: Albuterol 0.042% Inhal Sol (1.25 mg/3 mL) UD INH SCH ×3 (01:50→13:05)
[2016-10-21 09:01] LABS: BASO % 0.5 % (0.0-2.0); EOS % 0.1 % (0.0-4.0); HEMOGLOBIN 8.8 g/dL (11.0-16.0); LYMPH # 1.6 K/uL (1.0-4.3); MEAN CORPUSCULAR HGB CONC 31.5 g/dL (33.0-37.0); MEAN PLATELET VOLUME 8.6 fL (7.2-11.7); MONO # 2.5 K/uL (0.0-0.8); MONO % 36.6 % (0.0-10.0); NEUT # 2.6 K/uL (1.8-7.0); NEUT % 38.8 % (50.0-75.0); NRBC % 1.5 % (0.0-2.0); RBC 3.03 Mil/uL (3.80-5.20); RED CELL DISTRIBUTION WIDTH 20.2 % (11.5-14.5); WHITE BLOOD COUNT 6.8 K/uL (4.8-10.8)
[2016-10-21 09:07] LABS: PLATELET COUNT 108 K/uL (130-400)
[2016-10-21 09:14] LABS: GFR AFRICAN-AMERICAN > 60; GFR NON-AFRICAN AMERICAN > 60
[2016-10-21 09:15] LABS: BLOOD UREA NITROGEN 20 mg/dL (7-17); CALCIUM 7.9 mg/dl (8.6-10.4)
[2016-10-21] MEDS: Pantoprazole 40 mg EC Tab PO SCH (10:10)
--- NOTE | 2016-10-21 11:08 | CP.PCM.PN ---
<Sophia Argueta - Last Filed: 10/21/16 11:47> Subjective - Date & Time of Evaluation Date of Evaluation: 10/21/16 Time of Evaluation: 09:10 - Subjective Subjective: 75 year old female patient seen and evaluated at bedside for B/L LE lymphedema and Right heel eschar with attending, Dr. Thompson. Patient is seen resting comfortably at bedisde. She denies pain to LE. Denies any complications with LE. Dressings c/d/i with prevalon boots on bilaterally. Denies any acute events last night. Denies n/v/sob/cp/f or chills. Objective - Vital Signs/Intake and Output Vital Signs (last 24 hours): Temp Pulse Resp BP Pulse Ox 97.3 F L 78 18 150/75 100 10/21/16 07:30 10/21/16 07:30 10/21/16 07:30 10/21/16 10:10 10/21/16 07:30 - Medications Medications: Current Medications Albuterol Sulfate (Albuterol 0.042% Inhal Tricia (1.25mg/3ml) Ud) 1.25 mg INH RQ6 [facility] Last Admin: 10/21/16 08:40 Dose: 1.25 mg Bumetanide (Bumex) 0.5 mg PO DAILY [facility] Last Admin: 10/21/16 10:10 Dose: 0.5 mg Enalapril Maleate (Vasotec) 20 mg PO DAILY [facility] Last Admin: 10/21/16 10:10 Dose: 20 mg Epoetin Arturo (Procrit) 10,000 unit SC MWF [facility] Last Admin: 10/20/16 12:14 Dose: 10,000 unit Ferrous Sulfate (Feosol) 325 mg PO DAILY [facility] Last Admin: 10/21/16 10:11 Dose: 325 mg Tigecycline 50 mg/ Sodium (Chloride) 100 mls @ 100 mls/hr IVPB Q12H [facility] Last Admin: 10/21/16 05:07 Dose: 100 mls/hr Insulin Glargine (Lantus) 12 unit SC HS [facility] Loperamide HCl (Imodium) 2 mg PO Q4H PRN PRN Reason: Diarrhea Last Admin: 10/17/16 22:10 Dose: 2 mg Lorazepam (Ativan) 0.5 mg PO HS [facility] Last Admin: 10/20/16 21:20 Dose: Not Given Pantoprazole Sodium (Protonix Ec Tab) 40 mg PO DAILY [facility] Last Admin: 10/21/16 10:10 Dose: 40 mg Potassium Chloride (Potassium Chloride Oral Soln) 20 meq PO DAILY [facility] Last Admin: 10/20/16 12:08 Dose: 20 meq Tramadol HCl (Ultram) 50 mg PO Q4 PRN PRN Reason: Pain, moderate (4-7) Last Admin: 10/20/16 16:05 Dose: 50 mg - Labs Labs: 10/21/16 08:51 10/21/16 08:51 PT 16.0 SECONDS (9.7-12.2) H 10/13/16 11:04 INR 1.4 10/13/16 11:04 APTT 27 SECONDS (21-34) 10/13/16 11:04 - Constitutional Appears: Well, Non-toxic, No Acute Distress - Extremities Exam Additional comments: LE exam: Derm: B/L lymphedema with brawny edema and chronic lichenification from tibial shaft to feet. Right foot plantar heel eschar, no opening in skin, no drainage , no purulence, no clinical signs of infection. Vascular: Dp and PT pulses non-palpable, CFT <3sec, temperature WNL. Neuro: Protective sensation diminished bilaterally, light touch sensation intact bilaterally. Ortho: Decreased ROM to LE secondary to edema with weakness. - Neurological Exam Neurological Exam: Alert, Awake, Oriented x3 - Psychiatric Exam Psychiatric exam: Normal Affect, Normal Mood Assessment and Plan - Assessment and Plan (Free Text) Assessment: 75 y/o female with B/L LE chronic lymphedema and Right plantar heel unstageable eschar. Plan: Patient was seen and evaluated at bedside with attending Dr. Thompson Right heel eschar dressed with xeroform, DSD, kerlix. Right heel LE wrapped with OCHOA bandages. Heel offloading boots applied to patient feet B/L. Continue to wear offloading boots while in bed. Patient stable from podiatry standpoint. Podiatry will continue to follow while in hospital. <Collins Thompson - Last Filed: 10/23/16 08:09> Objective - Vital Signs/Intake and Output Vital Signs (last 24 hours): Temp Pulse Resp BP Pulse Ox 98.1 F 72 20 174/84 H 100 10/22/16 23:38 10/22/16 23:38 10/22/16 23:38 10/22/16 23:38 10/22/16 23:38 - Medications Medications: Current Medications Bumetanide (Bumex) 0.5 mg PO DAILY [facility] Last Admin: 10/22/16 10:42 Dose: 0.5 mg Enalapril Maleate (Vasotec) 20 mg PO DAILY [facility] Last Admin: 10/22/16 10:42 Dose: 20 mg Epoetin Arturo (Procrit) 10,000 unit SC MWF [facility] Last Admin: 10/20/16 12:14 Dose: 10,000 unit Ferrous Sulfate (Feosol) 325 mg PO DAILY [facility] Last Admin: 10/22/16 10:42 Dose: 325 mg Tigecycline 50 mg/ Sodium (Chloride) 100 mls @ 100 mls/hr IVPB Q12H [facility] Last Admin: 10/23/16 05:18 Dose: 100 mls/hr Insulin Glargine (Lantus) 12 unit SC [facility] Loperamide HCl (Imodium) 2 mg PO Q4H PRN PRN Reason: Diarrhea Last Admin: 10/17/16 22:10 Dose: 2 mg Lorazepam (Ativan) 0.5 mg PO HS [facility] Last Admin: 10/21/16 21:39 Dose: Not Given Pantoprazole Sodium (Protonix Ec Tab) 40 mg PO DAILY [facility] Last Admin: 10/22/16 10:42 Dose: 40 mg Potassium Chloride (Potassium Chloride Oral Soln) 20 meq PO DAILY [facility] Last Admin: 10/21/16 14:48 Dose: Not Given Tramadol HCl (Ultram) 50 mg PO Q4 PRN PRN Reason: Pain, moderate (4-7) Last Admin: 10/20/16 16:05 Dose: 50 mg - Labs Labs: 10/22/16 08:20 10/22/16 08:20 PT 16.0 SECONDS (9.7-12.2) H 10/13/16 11:04 INR 1.4 10/13/16 11:04 APTT 27 SECONDS (21-34) 10/13/16 11:04 Assessment and Plan - Assessment and Plan (Free Text) Plan: pt seen at bedside for heel ulcer with stable eschar and lymphedema b/l .Seen with resident agree with above findings .DR Maldonado
[2016-10-21 12:05] LABS: LYMPHOCYTE 24 % (20-40); MONOCYTE 29 % (0-10); NEUTROPHIL 47 % (50-75); TOTAL CELLS COUNTED 100
[2016-10-21 12:06] LABS: ANISOCYTOSIS MODERATE; HYPOCHROMIC SLIGHT; MICROCYTOSIS SLIGHT; OVALOCYTES SLIGHT; PLATELET ESTIMATE DECREASED (NORMAL); POIKILOCYTOSIS SLIGHT; POLYCHROMIC SLIGHT; SPHEROCYTES SLIGHT; TARGET CELLS SLIGHT
[2016-10-21 12:07] LABS: LARGE PLATELETS PRESENT; TEARDROP CELLS SLIGHT
--- NOTE | 2016-10-21 12:30 | RAD ---
PROCEDURE: CHEST RADIOGRAPH, 1 VIEW HISTORY: consolidation,chf COMPARISON: 10/16/2016 FINDINGS: LUNGS: Right perihilar ill-defined opacity. Possible pneumonia. PLEURA: No pneumothorax or pleural fluid seen. CARDIOVASCULAR: Right central venous infusion port. Mild cardiomegaly. Mild congestive change. OSSEOUS STRUCTURES: No significant abnormalities. VISUALIZED UPPER ABDOMEN: Normal. OTHER FINDINGS: None. IMPRESSION: Right parahilar ill-defined opacity. Possible pneumonia. Followup advised.
[2016-10-21] MEDS: Potassium Chloride 20 mEq/15 ml LIQ UD PO SCH (14:48)
--- NOTE | 2016-10-21 15:18 | PN ---
DATE: 10/21/2016 SUBJECTIVE: The patient is alert, oriented. PHYSICAL EXAMINATION: VITAL SIGNS: She is afebrile with blood pressure 150/74, pulse 78, respirations 18, hemoglobin oxyge n saturation of 100%. GENERAL: Her dyspnea has decreased. There is no chest pain. She complains of a little soreness judi und the site of placement of Sahil-Cath in the right anterior chest wall. HEART: Regular, no gallop rhythm. LUNGS: Diminished breath sounds over lung bases. Rhonchi decreased. ABDOMEN: Soft. EXTREMITIES: Legs, nonpitting edema. The patient was seen by farm operations manager and infectious disease specialist. IMPRESSION: Respiratory insufficiency, chronic obstructive pulmonary disease, arthritis, diabetes me llitus, and sepsis with pneumonitis and urosepsis. RECOMMENDATION: Continue with the current treatment, bronchodilators, vasodilators, antibiotics and all other measures. Abundio Silva MD cc: [id number] TT: 10/21/2016 15:17:37 Confirmation # [id number] Dictation # [id number]
--- NOTE | 2016-10-21 18:45 | PN ---
DATE: 10/20/2016 The patient is alert, oriented. VITAL SIGNS: She is afebrile, blood pressure 164/76, pulse , respirations 18, hemoglobin oxygen saturation 99%. Dyspnea is easier. There is no chest pain. HEART: Regular, no gallop rhythm. LUNGS: Diminished breath sounds over the lung bases. Rhonchi decreased. ABDOMEN: Soft. EXTREMITIES: Legs nonpitting edema. LABORATORY DATA: White count is 5800, hemoglobin 8.8, platelet count 141,000. Blood sugar today is . IMPRESSION: Respiratory insufficiency, sepsis, pneumonitis, anemia, urosepsis, bronchitis, hypertens toi cardiovascular disease, congestive heart failure. PLAN: To continue with current therapy and follow up with infectious disease and hematology. The mariza packer will be going for placement of Port-A-Cath, will continue intravenous therapy. Her platelet co unt is now improving. Abundio Silva MD cc: [id number] TT: 10/20/2016 15:29:52 Confirmation # [id number] Dictation # [id number] cn
--- NOTE | 2016-10-21 22:00 | CP.PCM.PN ---
Subjective - Date & Time of Evaluation Date of Evaluation: 10/21/16 Time of Evaluation: 15:40 - Subjective Subjective: Patient sitting up in bed today without any new complaints. Hct at 26, and pletlets 109,000. Continue Iv antibiotic therapy and repeat labs in AM. Objective - Vital Signs/Intake and Output Vital Signs (last 24 hours): Temp Pulse Resp BP Pulse Ox 98.4 F 85 20 152/79 H 152 H 10/21/16 16:00 10/21/16 16:00 10/21/16 16:00 10/21/16 16:00 10/21/16 16:00 Intake and Output: 10/21/16 10/22/16 18:59 06:59 Intake Total 480 Balance 480 - Medications Medications: Current Medications Bumetanide (Bumex) 0.5 mg PO DAILY [facility] Last Admin: 10/21/16 10:10 Dose: 0.5 mg Enalapril Maleate (Vasotec) 20 mg PO DAILY [facility] Last Admin: 10/21/16 10:10 Dose: 20 mg Epoetin Arturo (Procrit) 10,000 unit SC MWF [facility] Last Admin: 10/20/16 12:14 Dose: 10,000 unit Ferrous Sulfate (Feosol) 325 mg PO DAILY [facility] Last Admin: 10/21/16 10:11 Dose: 325 mg Tigecycline 50 mg/ Sodium (Chloride) 100 mls @ 100 mls/hr IVPB Q12H [facility] Last Admin: 10/21/16 17:37 Dose: 100 mls/hr Insulin Glargine (Lantus) 12 unit SC HS [facility] Loperamide HCl (Imodium) 2 mg PO Q4H PRN PRN Reason: Diarrhea Last Admin: 10/17/16 22:10 Dose: 2 mg Lorazepam (Ativan) 0.5 mg PO HS [facility] Last Admin: 10/21/16 21:39 Dose: Not Given Pantoprazole Sodium (Protonix Ec Tab) 40 mg PO DAILY [facility] Last Admin: 10/21/16 10:10 Dose: 40 mg Potassium Chloride (Potassium Chloride Oral Soln) 20 meq PO DAILY [facility] Last Admin: 10/21/16 14:48 Dose: Not Given Tramadol HCl (Ultram) 50 mg PO Q4 PRN PRN Reason: Pain, moderate (4-7) Last Admin: 10/20/16 16:05 Dose: 50 mg - Labs Labs: 10/21/16 08:51 10/21/16 08:51 PT 16.0 SECONDS (9.7-12.2) H 10/13/16 11:04 INR 1.4 10/13/16 11:04 APTT 27 SECONDS (21-34) 10/13/16 11:04 - Constitutional Appears: No Acute Distress - Head Exam Head Exam: NORMAL INSPECTION - Eye Exam Eye Exam: Normal appearance Pupil Exam: NORMAL ACCOMODATION - ENT Exam ENT Exam: Normal Exam - Neck Exam Neck Exam: Normal Inspection - Respiratory Exam Respiratory Exam: Decreased Breath Sounds - Cardiovascular Exam Cardiovascular Exam: REGULAR RHYTHM - GI/Abdominal Exam GI & Abdominal Exam: Normal Bowel Sounds - Rectal Exam Rectal Exam: Deferred - Exam Exam: Bladder Distension External exam: NORMAL EXTERNAL EXAM - Back Exam Back Exam: NORMAL INSPECTION - Neurological Exam Neurological Exam: Oriented x3 - Psychiatric Exam Psychiatric exam: Depressed - Skin Skin Exam: Dry Assessment and Plan (1) Anemia Status: Acute (2) Positive blood culture Status: Acute (3) UTI (urinary tract infection) Status: Acute (4) Degenerative disc disease at L5-S1 level Status: Acute (5) Diabetes mellitus type 2 in obese Status: Acute (6) Myelodysplasia, high grade Status: Acute
[2016-10-22 08:43] LABS: ALBUMIN 2.7 g/dL (3.5-5.0)
[2016-10-22 08:45] LABS: GFR AFRICAN-AMERICAN > 60; GFR NON-AFRICAN AMERICAN > 60
[2016-10-22 08:46] LABS: ALB/GLOB RATIO 0.5 (1.0-2.1); ALT/SGPT 7 U/L (9-52); AST/SGOT 17 U/L (14-36); BASO % 0.2 % (0.0-2.0); BLOOD UREA NITROGEN 20 mg/dL (7-17); CALCIUM 8.2 mg/dl (8.6-10.4); EOS % 0.1 % (0.0-4.0); HEMOGLOBIN 8.9 g/dL (11.0-16.0); LYMPH # 1.7 K/uL (1.0-4.3); LYMPH % 22.6 % (20.0-40.0); MEAN CELL VOLUME 91.3 fL (81.0-99.0); MEAN CORPUSCULAR HEMOGLOBIN 29.1 pg (27.0-31.0); MEAN CORPUSCULAR HGB CONC 31.9 g/dL (33.0-37.0); MEAN PLATELET VOLUME 9.1 fL (7.2-11.7); MONO # 2.8 K/uL (0.0-0.8); MONO % 36.9 % (0.0-10.0); NEUT % 40.2 % (50.0-75.0); NRBC % 2.8 % (0.0-2.0); PLATELET COUNT 93 K/uL (130-400); RBC 3.05 Mil/uL (3.80-5.20); WHITE BLOOD COUNT 7.5 K/uL (4.8-10.8)
[2016-10-22 10:38] LABS: BANDS 4 % (0-2); LYMPHOCYTE 21 % (20-40); MONOCYTE 24 % (0-10); NEUTROPHIL 51 % (50-75); TOTAL CELLS COUNTED 100
[2016-10-22 10:39] LABS: ANISOCYTOSIS MODERATE; HYPOCHROMIC SLIGHT; MICROCYTOSIS SLIGHT; PLATELET ESTIMATE DECREASED (NORMAL); POIKILOCYTOSIS SLIGHT; POLYCHROMIC SLIGHT; SPHEROCYTES SLIGHT
[2016-10-22 10:40] LABS: LARGE PLATELETS PRESENT; OVALOCYTES SLIGHT; TEARDROP CELLS SLIGHT
[2016-10-22] MEDS: Pantoprazole 40 mg EC Tab PO SCH (10:42)
[2016-10-22 15:57] VITALS: RESP 20
--- NOTE | 2016-10-22 16:15 | CP.PCM.PN ---
Subjective - Date & Time of Evaluation Date of Evaluation: 10/22/16 Time of Evaluation: 07:00 - Subjective Subjective: DENIES FEVER AWAKRE ALERT IV RX REORDERED Objective - Vital Signs/Intake and Output Vital Signs (last 24 hours): Temp Pulse Resp BP Pulse Ox 98.5 F 78 20 157/73 H 95 10/22/16 15:52 10/22/16 15:52 10/22/16 15:52 10/22/16 15:52 10/22/16 15:52 - Medications Medications: Current Medications Bumetanide (Bumex) 0.5 mg PO DAILY [facility] Last Admin: 10/22/16 10:42 Dose: 0.5 mg Enalapril Maleate (Vasotec) 20 mg PO DAILY [facility] Last Admin: 10/22/16 10:42 Dose: 20 mg Epoetin Arturo (Procrit) 10,000 unit SC [facility] Last Admin: 10/20/16 12:14 Dose: 10,000 unit Ferrous Sulfate (Feosol) 325 mg PO DAILY [facility] Last Admin: 10/22/16 10:42 Dose: 325 mg Tigecycline 50 mg/ Sodium (Chloride) 100 mls @ 100 mls/hr IVPB Q12H [facility] Last Admin: 10/22/16 05:18 Dose: 100 mls/hr Insulin Glargine (Lantus) 12 unit SC [facility] Loperamide HCl (Imodium) 2 mg PO Q4H PRN PRN Reason: Diarrhea Last Admin: 10/17/16 22:10 Dose: 2 mg Lorazepam (Ativan) 0.5 mg PO HS [facility] Last Admin: 10/21/16 21:39 Dose: Not Given Pantoprazole Sodium (Protonix Ec Tab) 40 mg PO DAILY [facility] Last Admin: 10/22/16 10:42 Dose: 40 mg Potassium Chloride (Potassium Chloride Oral Soln) 20 meq PO DAILY [facility] Last Admin: 10/21/16 14:48 Dose: Not Given Tramadol HCl (Ultram) 50 mg PO Q4 PRN PRN Reason: Pain, moderate (4-7) Last Admin: 10/20/16 16:05 Dose: 50 mg - Labs Labs: 10/22/16 08:20 10/22/16 08:20 PT 16.0 SECONDS (9.7-12.2) H 10/13/16 11:04 INR 1.4 10/13/16 11:04 APTT 27 SECONDS (21-34) 10/13/16 11:04 - Constitutional Appears: Non-toxic, Chronically Ill - Head Exam Head Exam: NORMOCEPHALIC - Eye Exam Eye Exam: PERRL. absent: Scleral icterus - ENT Exam ENT Exam: Mucous Membranes Dry - Neck Exam Neck Exam: absent: Lymphadenopathy - Respiratory Exam Respiratory Exam: Decreased Breath Sounds, Rhonchi - Cardiovascular Exam Cardiovascular Exam: REGULAR RHYTHM - GI/Abdominal Exam GI & Abdominal Exam: Distended, Soft - Rectal Exam Rectal Exam: Deferred - Exam Exam: NORMAL INSPECTION Bimanual exam: absent: Adenexal Mass - Extremities Exam Extremities Exam: absent: Pedal Edema - Back Exam Back Exam: absent: CVA tenderness (L), CVA tenderness (R) - Neurological Exam Neurological Exam: Alert, Awake, Oriented x3 Assessment and Plan (1) Anemia Status: Acute (2) Myelodysplasia, high grade Status: Acute (3) Positive blood culture Status: Acute (4) UTI (urinary tract infection) Status: Acute (5) Anemia associated with nutritional deficiency Status: Acute (6) Bronchitis Status: Acute (7) Diabetes mellitus type 2 in obese Status: Acute - Assessment and Plan (Free Text) Assessment: CONT IV RX
--- NOTE | 2016-10-22 19:15 | PN ---
DATE: 10/22/2016 . blood pressure take includes Staph aureus. The patient is . Respiratory in sufficiency, sepsis, urosepsis, , bronchitis, COPD, , hypertensive cardiovascular disease, congestive heart failure, and diabetes mellitus. PLAN: To continue with antibiotics, bronchodilators, , and follow up with infectious disease __ ___. Abundio Silva MD cc: [id number] TT: 10/22/2016 17:50:10 Confirmation # [id number] Dictation # [id number] mn
[2016-10-23 08:08] LABS: BASO % 0.3 % (0.0-2.0); EOS % 0.1 % (0.0-4.0); HEMOGLOBIN 8.9 g/dL (11.0-16.0); LYMPH # 1.5 K/uL (1.0-4.3); LYMPH % 21.2 % (20.0-40.0); MEAN CELL VOLUME 90.6 fL (81.0-99.0); MEAN CORPUSCULAR HEMOGLOBIN 29.4 pg (27.0-31.0); MEAN CORPUSCULAR HGB CONC 32.5 g/dL (33.0-37.0); MEAN PLATELET VOLUME 9.3 fL (7.2-11.7); MONO # 2.6 K/uL (0.0-0.8); MONO % 37.5 % (0.0-10.0); NEUT # 2.8 K/uL (1.8-7.0); NEUT % 40.9 % (50.0-75.0); NRBC % 3.2 % (0.0-2.0); RBC 3.02 Mil/uL (3.80-5.20); RED CELL DISTRIBUTION WIDTH 20.5 % (11.5-14.5); WHITE BLOOD COUNT 6.9 K/uL (4.8-10.8)
[2016-10-23 08:09] LABS: ALBUMIN 2.6 g/dL (3.5-5.0)
[2016-10-23 08:10] LABS: PLATELET COUNT 74 K/uL (130-400)
[2016-10-23 08:11] LABS: GFR AFRICAN-AMERICAN > 60; GFR NON-AFRICAN AMERICAN > 60
[2016-10-23 08:12] LABS: ALB/GLOB RATIO 0.5 (1.0-2.1); AST/SGOT 17 U/L (14-36); BLOOD UREA NITROGEN 17 mg/dL (7-17); CALCIUM 8.2 mg/dl (8.6-10.4)
[2016-10-23 08:15] VITALS: O2SAT 99
[2016-10-23 08:18] LABS: ALT/SGPT < 6 U/L (9-52)
[2016-10-23 08:42] LABS: MONOCYTE 32 % (0-10); NEUTROPHIL 47 % (50-75); NUCLEATED RED BLOOD CELL 1 % (0-0); TOTAL CELLS COUNTED 100
[2016-10-23 08:43] LABS: ANISOCYTOSIS SLIGHT; HYPOCHROMIC SLIGHT; LYMPHOCYTE 21 % (20-40); PLATELET ESTIMATE DECREASED (NORMAL); POIKILOCYTOSIS SLIGHT
[2016-10-23 08:44] LABS: MICROCYTOSIS SLIGHT; TEARDROP CELLS SLIGHT
[2016-10-23 08:45] LABS: TARGET CELLS SLIGHT
[2016-10-23 08:46] LABS: GIANT PLATELETS PRESENT; LARGE PLATELETS PRESENT; POLYCHROMIC SLIGHT
[2016-10-23] MEDS: EPOETIN ALFA 10,000 UNIT/ML ML SC SCH (10:00)
[2016-10-23] MEDS: Pantoprazole 40 mg EC Tab PO SCH (10:00)
--- NOTE | 2016-10-23 11:05 | PN ---
DATE: 10/23/2016 PHYSICAL EXAMINATION: GENERAL: The patient is alert, oriented. VITAL SIGNS: Afebrile with blood pressure 168/74, pulse 73, respirations 20, hemoglobin oxygen satur ation of 99%. The patient's dyspnea is easier. There is no vomiting. Cough is easier. HEART: Regular. No gallop rhythm. LUNGS: Diminished breath sounds. Rhonchi decreased. ABDOMEN: Soft. LEGS: Bilateral not pitting edema. LABORATORY DATA: White count is 6900, hemoglobin 8.9, and platelet count is 74,000. Serum potassium 3.6, BUN 17, creatinine 0.8. IMPRESSION: Respiratory insufficiency, chronic obstructive pulmonary disease, pneumonitis, anemia, h ypertensive cardiovascular disease, congestive heart failure and sepsis. PLAN: To continue with antibiotics, bronchodilators and vasodilators and consult followup. Abundio Silva MD cc: [id number] TT: 10/23/2016 11:05:29 Confirmation # [id number] Dictation # [id number] mn
--- NOTE | 2016-10-23 16:08 | CP.PCM.PN ---
Subjective - Date & Time of Evaluation Date of Evaluation: 10/23/16 Time of Evaluation: 10:20 - Subjective Subjective: pt seen and examined today , comfortable, denies any chest pain, sob, abdominal pain, N/V/D No overnight events reported by RN s/p mediport insertion platelet stable above 70,000 after mediport insertion a febrile Objective - Vital Signs/Intake and Output Vital Signs (last 24 hours): Temp Pulse Resp BP Pulse Ox 98.1 F 73 20 169/75 H 99 10/23/16 08:11 10/23/16 08:11 10/23/16 08:11 10/23/16 10:00 10/23/16 08:11 Intake and Output: 10/23/16 10/23/16 06:59 18:59 Intake Total 480 Balance 480 - Medications Medications: Current Medications Bumetanide (Bumex) 0.5 mg PO DAILY [facility] Last Admin: 10/23/16 10:00 Dose: 0.5 mg Enalapril Maleate (Vasotec) 20 mg PO DAILY [facility] Last Admin: 10/23/16 10:00 Dose: 20 mg Epoetin Arturo (Procrit) 10,000 unit SC MWF [facility] Last Admin: 10/23/16 10:00 Dose: 10,000 unit Ferrous Sulfate (Feosol) 325 mg PO DAILY [facility] Last Admin: 10/23/16 10:00 Dose: 325 mg Tigecycline 50 mg/ Sodium (Chloride) 100 mls @ 100 mls/hr IVPB Q12H [facility] Last Admin: 10/23/16 05:18 Dose: 100 mls/hr Insulin Glargine (Lantus) 12 unit SC [facility] Loperamide HCl (Imodium) 2 mg PO Q4H PRN PRN Reason: Diarrhea Last Admin: 10/17/16 22:10 Dose: 2 mg Lorazepam (Ativan) 0.5 mg PO HS [facility] Last Admin: 10/21/16 21:39 Dose: Not Given Pantoprazole Sodium (Protonix Ec Tab) 40 mg PO DAILY [facility] Last Admin: 10/23/16 10:00 Dose: 40 mg Potassium Chloride (Potassium Chloride Oral Soln) 20 meq PO DAILY [facility] Last Admin: 10/21/16 14:48 Dose: Not Given Tramadol HCl (Ultram) 50 mg PO Q4 PRN PRN Reason: Pain, moderate (4-7) Last Admin: 10/20/16 16:05 Dose: 50 mg - Labs Labs: 10/23/16 07:51 10/23/16 07:51 PT 16.0 SECONDS (9.7-12.2) H 10/13/16 11:04 INR 1.4 10/13/16 11:04 APTT 27 SECONDS (21-34) 10/13/16 11:04 - Constitutional Appears: Well, Non-toxic, No Acute Distress - ENT Exam ENT Exam: Mucous Membranes Moist - Respiratory Exam Respiratory Exam: Decreased Breath Sounds, Clear to Ausculation Bilateral, NORMAL BREATHING PATTERN - Neurological Exam Neurological Exam: Alert, Oriented x3 Assessment and Plan - Assessment and Plan (Free Text) Assessment: A/P 75 yr old female with past medical history of hypertension, chronic anemia, MDS, DM admitted for symptomatic anemia with hgb of 6.3 and positive blood cultures hgb - improved after PRBC transfusion and procrit and stable - 8.6 s/p medi port insertion by IR by Dr. Okeefe and PLT being stable above 70,000 blood culture- Klebesela pneumonia s/p picc line removed - tip + for staph Blood culture repeat - negative for [address] Prabhakar patient needs 14 days of tygacil for bacteremia Patient received 10 doses already as per michelle [place] ok to give 4 more days of tigacil to complete 14 days the above plan discussed with Dr. moody and patient stable for discharge to [facility] today and Dr. Moody will follow the patient at [facility] discharge plan discussed with patient and daughter at bedside Discharge instructions sent to [facility] regarding duration of antibiotics and blood work to follow at [facility]
--- NOTE | 2016-10-23 16:12 | CP.PCM.PN ---
Subjective - Date & Time of Evaluation Date of Evaluation: 10/23/16 Time of Evaluation: 13:20 - Subjective Subjective: Podiatry - Dr. Thompson Patient seen bedside regarding B/L LE lymphedema, Right heel eschar. Patient is seen resting in bed in [facility]. Denies pain to LE. Denies any complications with LE. States she is feeling good today. Denies F/C/N/V/SOB. Objective - Vital Signs/Intake and Output Vital Signs (last 24 hours): Temp Pulse Resp BP Pulse Ox 98.1 F 73 20 169/75 H 99 10/23/16 08:11 10/23/16 08:11 10/23/16 08:11 10/23/16 10:00 10/23/16 08:11 Intake and Output: 10/23/16 10/23/16 06:59 18:59 Intake Total 480 Balance 480 - Medications Medications: Current Medications Bumetanide (Bumex) 0.5 mg PO DAILY [facility] Last Admin: 10/23/16 10:00 Dose: 0.5 mg Enalapril Maleate (Vasotec) 20 mg PO DAILY [facility] Last Admin: 10/23/16 10:00 Dose: 20 mg Epoetin Arturo (Procrit) 10,000 unit SC MWF [facility] Last Admin: 10/23/16 10:00 Dose: 10,000 unit Ferrous Sulfate (Feosol) 325 mg PO DAILY [facility] Last Admin: 10/23/16 10:00 Dose: 325 mg Tigecycline 50 mg/ Sodium (Chloride) 100 mls @ 100 mls/hr IVPB Q12H [facility] Last Admin: 10/23/16 05:18 Dose: 100 mls/hr Insulin Glargine (Lantus) 12 unit SC [facility] Loperamide HCl (Imodium) 2 mg PO Q4H PRN PRN Reason: Diarrhea Last Admin: 10/17/16 22:10 Dose: 2 mg Lorazepam (Ativan) 0.5 mg PO HS [facility] Last Admin: 10/21/16 21:39 Dose: Not Given Pantoprazole Sodium (Protonix Ec Tab) 40 mg PO DAILY [facility] Last Admin: 10/23/16 10:00 Dose: 40 mg Potassium Chloride (Potassium Chloride Oral Soln) 20 meq PO DAILY [facility] Last Admin: 10/21/16 14:48 Dose: Not Given Tramadol HCl (Ultram) 50 mg PO Q4 PRN PRN Reason: Pain, moderate (4-7) Last Admin: 10/20/16 16:05 Dose: 50 mg - Labs Labs: 10/23/16 07:51 10/23/16 07:51 PT 16.0 SECONDS (9.7-12.2) H 10/13/16 11:04 INR 1.4 10/13/16 11:04 APTT 27 SECONDS (21-34) 10/13/16 11:04 - Constitutional Appears: No Acute Distress - Extremities Exam Additional comments: LE exam: Derm: B/L lymphedema with brawny edema and chronic lichenification from tibial shaft to feet. Right foot plantar heel eschar, unstageable, no opening in skin , no drainage, no purulence. Vascular: Dp and PT pulses non-palpable, CFT <3sec, temp unremarkable. Neuro: Protective sensation diminished, light touch sensation intact. MSK: Decreased ROM to LE secondary to edema with weakness. - Neurological Exam Neurological Exam: Alert, Awake, Oriented x3 Assessment and Plan - Assessment and Plan (Free Text) Assessment: 75 y/o female with B/L LE chronic lymphedema and Right plantar heel unstageable eschar. Plan: evaluated and treated with all questions addressed and answered. discussed with Dr. Thompson Right heel eschar dressed with xeroform, DSD, kerlix. B/L LE wrapped with OCHOA bandages. Heel offloading boots applied to patient feet B/L. To be worn at all times when in bed. Patient stable from podiatry standpoint. Will continue to follow while in hospital.
[2016-10-23 17:17] VITALS: BP 169/73; PULSE 77; TEMP 99.2
--- NOTE | 2016-10-27 11:38 | CP.PCM.DIS ---
Provider - Provider Date of Admission: 10/12/16 14:03 Attending physician: Junito Foster MD Time Spent in preparation of Discharge (in minutes): 26 Diagnosis - Discharge Diagnosis (1) Anemia Status: Acute (2) Positive blood culture Status: Acute (3) UTI (urinary tract infection) Status: Acute (4) Degenerative disc disease at L5-S1 level Status: Acute Priority: Medium (5) Diabetes mellitus type 2 in obese Status: Acute Priority: Medium (6) Myelodysplasia, high grade Status: Acute (7) Diabetes mellitus type 2, uncontrolled Status: Acute Hospital Course - Lab Results Lab Results: Micro Results 10/16/16 18:00 Blood-Venous Blood Culture - Final NO GROWTH AFTER 5 DAYS 10/16/16 18:00 Blood-Venous Gram Stain - Final TEST NOT PERFORMED 10/16/16 18:00 Blood-Venous Blood Culture - Final NO GROWTH AFTER 5 DAYS 10/16/16 18:00 Blood-Venous Gram Stain - Final TEST NOT PERFORMED 10/16/16 17:00 Blood-Venous Blood Culture - Final NO GROWTH AFTER 5 DAYS 10/16/16 17:00 Blood-Venous Gram Stain - Final TEST NOT PERFORMED 10/13/16 18:30 Catheter Tip Catheter Tip Culture - Final Staphylococcus Aureus Most Recent Lab Values WBC 6.9 K/uL (4.8-10.8) 10/23/16 07:51 RBC 3.02 Mil/uL (3.80-5.20) L 10/23/16 07:51 Hgb 8.9 g/dL (11.0-16.0) L 10/23/16 07:51 Hct 27.4 % (34.0-47.0) L 10/23/16 07:51 MCV 90.6 fL (81.0-99.0) 10/23/16 07:51 MCH 29.4 pg (27.0-31.0) 10/23/16 07:51 MCHC 32.5 g/dL (33.0-37.0) L 10/23/16 07:51 RDW 20.5 % (11.5-14.5) H 10/23/16 07:51 Plt Count 74 K/uL (130-400) L 10/23/16 07:51 MPV 9.3 fL (7.2-11.7) 10/23/16 07:51 Neut % (Auto) 40.9 % (50.0-75.0) L 10/23/16 07:51 Lymph % (Auto) 21.2 % (20.0-40.0) 10/23/16 07:51 [place] % (Auto) 37.5 % (0.0-10.0) H 10/23/16 07:51 Eos % (Auto) 0.1 % (0.0-4.0) 10/23/16 07:51 Baso % (Auto) 0.3 % (0.0-2.0) 10/23/16 07:51 Neut # 2.8 K/uL (1.8-7.0) 10/23/16 07:51 Lymph # 1.5 K/uL (1.0-4.3) 10/23/16 07:51 [place] # 2.6 K/uL (0.0-0.8) H 10/23/16 07:51 Eos # 0.0 K/uL (0.0-0.7) 10/23/16 07:51 Baso # 0.0 K/uL (0.0-0.2) 10/23/16 07:51 Neutrophils % (Manual) 47 % (50-75) L 10/23/16 07:51 Band Neutrophils % 4 % (0-2) H 10/22/16 08:20 Lymphocytes % (Manual) 21 % (20-40) 10/23/16 07:51 Monocytes % (Manual) 32 % (0-10) H 10/23/16 07:51 Nucleated RBC % 1 % (0-0) H 10/23/16 07:51 Differential Comment 10/12/16 13:17 Platelet Estimate Decreased (NORMAL) L 10/23/16 07:51 Large Platelets Present 10/23/16 07:51 Giant Platelets Present 10/23/16 07:51 Polychromasia Slight 10/23/16 07:51 Hypochromasia (manual) Slight 10/23/16 07:51 Poikilocytosis (manual Slight 10/23/16 07:51 Anisocytosis (manual) Slight 10/23/16 07:51 Microcytosis (manual) Slight 10/23/16 07:51 Macrocytosis (manual) Slight 10/23/16 07:51 Spherocytes Slight 10/22/16 08:20 Target Cells Slight 10/23/16 07:51 Tear Drop Cells Slight 10/23/16 07:51 Ovalocytes Slight 10/22/16 08:20 Hugh Cells Slight 10/17/16 08:17 Retic Count 2.7 % (0.5-1.5) H D 10/13/16 11:04 PT 16.0 SECONDS (9.7-12.2) H 10/13/16 11:04 INR 1.4 10/13/16 11:04 APTT 27 SECONDS (21-34) 10/13/16 11:04 Fibrinogen 246 mg/dL (200-400) 10/13/16 11:04 Fibrin Degrad Products Positive (NEGATIVE) H 10/13/16 11:04 Fibrin Degrad Prod, Qt >10<40 ug/mL (<10) H 10/13/16 11:04 Puncture Site Rra 10/16/16 14:00 pCO2 38 mm/Hg (35-45) 10/16/16 14:00 pO2 110 mm/Hg (80-100) H 10/16/16 14:00 HCO3 24.1 mmol/L (21-28) 10/16/16 14:00 ABG pH 7.40 (7.35-7.45) 10/16/16 14:00 ABG Total CO2 24.7 mmol/L (22-28) 10/16/16 14:00 ABG O2 Saturation 99.3 % (95-98) H 10/16/16 14:00 ABG Base Excess -1.1 mmol/L (-2.0-3.0) 10/16/16 14:00 ABG Hemoglobin 8.5 g/dL (11.7-17.4) L 10/16/16 14:00 ABG Carboxyhemoglobin 2.0 % (0.5-1.5) H 10/16/16 14:00 POC ABG HHb (Measured) 0.7 % (0.0-5.0) 10/16/16 14:00 ABG Methemoglobin 2.1 % (0.0-3.0) 10/16/16 14:00 Inderjit Test A 10/16/16 14:00 A-a O2 Difference 42.0 mm/Hg 10/16/16 14:00 Respiratory Index 0.4 10/16/16 14:00 Hgb O2 Saturation 95.1 % (95.0-98.0) 10/16/16 14:00 Liter Flow 2.0 10/16/16 14:00 FiO2 28.0 % 10/16/16 14:00 Sodium 137 mmol/L (132-148) 10/23/16 07:51 Potassium 3.6 mmol/L (3.6-5.2) 10/23/16 07:51 Chloride 103 mmol/L (98-107) 10/23/16 07:51 Carbon Dioxide 27 mmol/L (22-30) 10/23/16 07:51 Anion Gap 10 (10-20) 10/23/16 07:51 BUN 17 mg/dL (7-17) 10/23/16 07:51 Creatinine 0.8 MG/DL (0.7-1.2) 10/23/16 07:51 Est GFR ( Amer) > 60 10/23/16 07:51 Est GFR (Non-Af Amer) > 60 10/23/16 07:51 POC Glucose (mg/dL) 127 mg/dL (65-110) H 10/23/16 11:48 Random Glucose 125 mg/dL (65-105) H 10/23/16 07:51 Calcium 8.2 mg/dl (8.6-10.4) L 10/23/16 07:51 Iron 38 ug/dL (37-170) 10/13/16 11:04 TIBC 215 ug/dL (250-450) L 10/13/16 11:04 % Saturation 18 (20-55) L 10/13/16 11:04 Ferritin 687.0 ng/mL 10/13/16 11:04 Total Bilirubin 1.4 mg/dL (0.2-1.3) H 10/23/16 07:51 AST 17 U/L (14-36) 10/23/16 07:51 ALT < 6 U/L (9-52) L 10/23/16 07:51 Alkaline Phosphatase 193 U/L (38-126) H 10/23/16 07:51 Total Protein 8.3 g/dL (6.3-8.3) 10/23/16 07:51 Albumin 2.6 g/dL (3.5-5.0) L 10/23/16 07:51 Globulin 5.7 gm/dL (2.2-3.9) H 10/23/16 07:51 Albumin/Globulin Ratio 0.5 (1.0-2.1) L 10/23/16 07:51 Vitamin B12 > 1000 pg/mL (239-931) H 10/13/16 11:04 Procalcitonin 2.09 NG/ML (0.19-0.49) H 10/14/16 08:34 TSH 3rd Generation 1.79 mIU/L (0.46-4.68) 10/16/16 14:25 Urine Color [place] (YELLOW) 10/12/16 15:59 Urine Clarity Hazy (Clear) 10/12/16 15:59 Urine pH 5.0 (5.0-8.0) 10/12/16 15:59 Ur Specific [place] 1.018 (1.003-1.030) 10/12/16 15:59 Urine Protein 1+ mg/dL (NEGATIVE) H 10/12/16 15:59 Urine Glucose (UA) Normal mg/dL (Normal) 10/12/16 15:59 Urine Ketones Negative mg/dL (NEGATIVE) 10/12/16 15:59 Urine Blood 3+ (NEGATIVE) H 10/12/16 15:59 Urine Nitrate Negative (NEGATIVE) 10/12/16 15:59 Urine Bilirubin Negative (NEGATIVE) 10/12/16 15:59 Urine Urobilinogen 4.0 mg/dL (0.2-1.0) H 10/12/16 15:59 Ur Leukocyte Esterase Neg Svetlana/uL (Negative) 10/12/16 15:59 Urine WBC (Auto) 4 /hpf (0-5) 10/12/16 15:59 Urine RBC (Auto) 48 /hpf (0-3) H 10/12/16 15:59 Ur Squamous Epith Cells 11 /hpf (0-5) H 10/12/16 15:59 Urine Bacteria Many (<OCC) H 10/12/16 15:59 Random Vancomycin 6.45 ug/mL 10/14/16 08:23 Blood Type O NEGATIVE 10/12/16 14:38 Antibody Screen Negative 10/12/16 14:38 Discharge Exam - Head Exam Head Exam: NORMOCEPHALIC - Eye Exam Eye Exam: Normal appearance Pupil Exam: NORMAL ACCOMODATION - ENT Exam ENT Exam: Normal Exam - Neck Exam Neck exam: Normal Inspection - Respiratory Exam Respiratory Exam: Decreased Breath Sounds - Cardiovascular Exam Cardiovascular Exam: REGULAR RHYTHM - GI/Abdominal Exam GI & Abdominal Exam: Hyperactive Bowel Sounds - Rectal Exam Rectal Exam: Deferred - Exam External exam: NORMAL EXTERNAL EXAM - Extremities Exam Extremities exam: tenderness - Back Exam Back exam: NORMAL INSPECTION - Neurological Exam Neurological exam: Oriented x3 - Psychiatric Exam Psychiatric exam: Depressed - Skin Skin Exam: Dry Discharge Plan - Follow Up Plan Condition: FAIR Disposition: REHAB FACILITY/REHAB UNIT Patient education suggested?: No Instructions: Myelodysplastic Syndromes (DC), Anemia (DC) Additional Instructions: Please admit patient under Cristian service- call Dr. Foster upon patient arrival to the facility PLEASE CONTINUE TYGACIL FOR 4 MORE DAYS -LAST DOSE 10/27/16 CBC, Q 3DAYS , BMP ,LFT , Q WEEKLY STARTING SUNDAY MAY USE MIDLINE FOR ANTIBIOTICS - CARE PER FACILITY PROTOCOL CONTINUE ALL OTHER MEDICATION PER MED REC.
== END 2016-10-23 21:58 | DRG 871 ==
LOC: C.ER 10:54 → C.9E 14:03 → C.3T 16:59 → C.5T 10-13 11:36
PROVIDERS: ADMIT Internal Medicine; ATTEND Internal Medicine
PROC: 02HV33Z Insertion of Infusion Device into Superior Vena Cava, Percutaneous Approach (ICD-10-PCS; 2016-10-20)
PROC: B518ZZA Fluoroscopy of Superior Vena Cava, Guidance (ICD-10-PCS; 2016-10-20)
PROC: 0JH60XZ Insertion of Tunneled Vascular Access Device into Chest Subcutaneous Tissue and Fascia, Open Approach (ICD-10-PCS; principal; 2016-10-20 09:00)
DX: A41.50 Gram-negative sepsis, unspecified (principal); J18.9 Pneumonia, unspecified organism; D61.818 Other pancytopenia; I11.0 Hypertensive heart disease with heart failure; N39.0 Urinary tract infection, site not specified; I50.9 Heart failure, unspecified; J44.0 Chronic obstructive pulmonary disease with (acute) lower respiratory infection; D46.9 Myelodysplastic syndrome, unspecified; E11.9 Type 2 diabetes mellitus without complications; D53.9 Nutritional anemia, unspecified; I87.2 Venous insufficiency (chronic) (peripheral); I89.0 Lymphedema, not elsewhere classified; M19.90 Unspecified osteoarthritis, unspecified site; M51.37 Other intervertebral disc degeneration, lumbosacral region; E78.5 Hyperlipidemia, unspecified; E66.9 Obesity, unspecified; Z87.01 Personal history of pneumonia (recurrent); Z90.49 Acquired absence of other specified parts of digestive tract

== ENCOUNTER 2016-12-13 15:28 | Inpatient (IN) | payer MEDICARE, BC ==
[2016-12-13 15:28] VITALS: BMI 47.0
--- NOTE | 2016-12-13 16:02 | C.PDOC ---
History Of Present Illness 75 yo female with Hx of myelodysplastic syndrome, chronic anemia and thrombocytopenia presents to ED with complaints of generalized weakness and loss of appetite with associated loss of energy for several days. Patient reports she was hospitalized 09/2016 for thrombocytopenia and had transfusion with diagnosed UTI and was discharged to a Rehab to continue antibiotics. Patient states when she went home she was okay until a couple of days ago when symptoms developed. Physical therapy went to her home today for therapy and patient could not even lift legs and was advised to come to ED for further evaluation. Patient has Hx of chronic leg pain and leg edema with associated ulceration. Patient denies URI symptoms, abdominal pain, Urinary symptoms or any other complaints at this time. Time Seen by Provider: 12/13/16 15:41 Chief Complaint (Nursing): Lower Extremity Problem/Injury History Per: Patient History/Exam Limitations: no limitations Onset/Duration Of Symptoms: Days Current Symptoms Are (Timing): Still Present Past Medical History Reviewed: Historical Data, Nursing Documentation, Vital Signs Vital Signs: Last Vital Signs Temp 98.6 F 12/13/16 15:41 Pulse 100 H 12/13/16 15:41 Resp 20 12/13/16 15:41 BP 140/66 12/13/16 15:41 Pulse Ox 93 L 12/13/16 16:04 - Medical History PMH: Anemia, Arthritis, HTN, Pneumonia Denies: Chronic Kidney Disease Surgical History: Cholecystectomy (in 2010) - [facility] Procedures CENTRAL VENOUS CATHETER PLACEMENT WITH GUIDANCE (02/16/14) FLUOROSCOPY OF SUPERIOR VENA CAVA, GUIDANCE (10/12/16) INSERTION OF INFUSION DEV INTO SUP VENA CAVA, PERC APPROACH (10/12/16) INSERTION OF VAD INTO CHEST SUBCU/FASCIA, OPEN APPROACH (10/12/16) PACKED CELL TRANSFUSION (02/16/14) TRANSFUSE NONAUT RED BLOOD CELLS IN PERIPH VEIN, PERC (09/06/16) VACCINATION NEC (02/16/14) Family History: States: Unknown Family Hx - Social History Hx Tobacco Use: No Hx Alcohol Use: No Hx Substance Use: No - Immunization History Hx Tetanus Toxoid Vaccination: No Hx Influenza Vaccination: Yes Hx Pneumococcal Vaccination: Yes Review Of Systems Except As Marked, All Systems Reviewed And Found Negative. Constitutional: Negative for: Fever, Chills Cardiovascular: Negative for: Chest Pain Respiratory: Negative for: Cough, Shortness of Breath Gastrointestinal: Negative for: Nausea, Vomiting, Diarrhea Musculoskeletal: Positive for: Leg Pain Skin: Negative for: Rash Neurological: Positive for: Weakness. Negative for: Numbness, Headache, Dizziness Physical Exam - Physical Exam Appears: Non-toxic, Other (Feels weak and fatigue) Skin: Dry, Pale Head: Atraumatic, Normacephalic Eye(s): bilateral: Normal Inspection, PERRL, EOMI Oral Mucosa: Moist Chest: Symmetrical Cardiovascular: Rhythm Regular Respiratory: Normal Breath Sounds, No Rales, No Rhonchi, No Wheezing Gastrointestinal/Abdominal: Soft, No Tenderness, No Guarding, No Rebound Extremity: Pedal Edema (Chronic edema bilateral on legs, legs wrapped in boot dressing), Capillary Refill (<2 seconds), No Deformity Pulses: Left Dorsalis Pedis: Normal, Right Dorsalis Pedis: Normal Neurological/Psych: Oriented x3, Normal Speech, Normal Motor, Normal Sensation ED Course And Treatment - Laboratory Results Result Diagrams: 12/13/16 16:19 12/13/16 16:19 Lab Interpretation: Abnormal (Blood is grossly hemolyzed. WBC 14.6, Hgb 9.8, plt 29) O2 Sat by Pulse Oximetry: 93 (RA) Pulse Ox Interpretation: Normal Reevaluation Time: 16:53 Reassessment Condition: Unchanged (Patient continues to be weak but without complaint of pain.) - Physician Consult Information Time Consulting Physician Contacted: 16:54 Physician Contacted: Junito Foster Outcome Of Conversation: Patient to be admitted for IV fluids and rehydration. Disposition - Disposition Disposition: HOSPITALIZED Disposition Time: 16:54 Condition: FAIR Instructions: Weakness (ED) Forms: [facility] (Mongolian) - POA Present On Arrival: None - Clinical Impression Clinical Impression: Myelodysplasia, high grade, Thrombocytopenia, Anemia, Generalized weakness, Dehydration - Scribe Statement The provider has reviewed the documentation as recorded by the Nely Dumont All medical record entries made by the Marlenyibmeghan were at my direction and personally dictated by me. I have reviewed the chart and agree that the record accurately reflects my personal performance of the history, physical exam, medical decision making, and the department course for this patient. I have also personally directed, reviewed, and agree with the discharge instructions and disposition.
[2016-12-13 16:33] LABS: MEAN CORPUSCULAR HEMOGLOBIN 30.4 pg (27.0-31.0)
[2016-12-13 16:36] LABS: CHLORIDE 109 mmol/L (98-107); SODIUM 139 mmol/L (132-148)
[2016-12-13 16:38] LABS: BILIRUBIN,TOTAL 2.4 mg/dL (0.2-1.3); GFR AFRICAN-AMERICAN > 60
[2016-12-13 16:39] LABS: ALB/GLOB RATIO 0.5 (1.0-2.1); ALKALINE PHOSPHATASE 247 U/L (38-126); AST/SGOT 39 U/L (14-36); BLOOD UREA NITROGEN 19 mg/dL (7-17); CARBON DIOXIDE 20 mmol/L (22-30); GLUCOSE,RANDOM 81 mg/dL (65-105); TOTAL PROTEIN 9.7 g/dL (6.3-8.3)
[2016-12-13 16:40] LABS: MAGNESIUM 1.5 mg/dL (1.6-2.3)
[2016-12-13 16:42] LABS: ALT/SGPT < 6 U/L (9-52); BASO # 0.1 K/uL (0.0-0.2); BASO % 0.5 % (0.0-2.0); EOS # 0.1 K/uL (0.0-0.7); EOS % 0.6 % (0.0-4.0); HEMATOCRIT 32.6 % (34.0-47.0); LYMPH # 2.2 K/uL (1.0-4.3); LYMPH % 14.7 % (20.0-40.0); MEAN CORPUSCULAR HGB CONC 30.1 g/dL (33.0-37.0); MEAN PLATELET VOLUME 8.8 fL (7.2-11.7); MONO # 2.1 K/uL (0.0-0.8); MONO % 14.6 % (0.0-10.0); NRBC % 4.4 % (0.0-2.0); RED CELL DISTRIBUTION WIDTH 26.8 % (11.5-14.5)
[2016-12-13 16:43] LABS: MEAN CELL VOLUME 100.7 fL (81.0-99.0); WHITE BLOOD COUNT 14.6 K/uL (4.8-10.8)
[2016-12-13 16:45] LABS: POTASSIUM 7.3 mmol/L (3.6-5.2)
[2016-12-13 16:49] LABS: RBC URINE 31 /hpf (0-3); URINE BACTERIA RARE (<OCC); URINE BILIRUBIN NEGATIVE (NEGATIVE); URINE BLOOD 2+ (NEGATIVE); URINE GLUCOSE (UA) NORMAL (Normal); URINE KETONE NEGATIVE (NEGATIVE); URINE LEUKOCYTE ESTERASE NEG Leu/uL (Negative); URINE PROTEIN 1+ mg/dL (NEGATIVE); WBC URINE 10 /hpf (0-5)
[2016-12-13 16:53] LABS: URINE COLOR YELLOW (YELLOW)
[2016-12-14] MEDS: (Novolog) Insulin Aspart, Recombinant 100 u/ml 10 ml vial SC SCH ×4 (07:55→22:44)
--- NOTE | 2016-12-14 09:51 | RAD ---
HISTORY: medi-port placement check COMPARISON: 10/21/2016 TECHNIQUE: Chest PA and lateral labeling is presumed incorrect what is labeled left showed the right FINDINGS: LUNGS: Worsening bilateral patchy airspace opacities consistent with worsening infiltrates are suggested in both lungs -left perihilar -left lung base right infrahilar locations. At these latter locations mention coalescing air bronchograms are suggested. The prior right upper lobe opacity actually appears less pronounced. PLEURA: Interval increase left pleural effusion suggested. No pneumothorax apparent. CARDIOVASCULAR: Cardiomegaly similar-appearing the concomitant central pulmonary venous congestion are also suspect. OSSEOUS STRUCTURES: No significant abnormalities. VISUALIZED UPPER ABDOMEN: Normal. OTHER FINDINGS: Port-A-Cath tip in superior vena cava as before. IMPRESSION: Interval worsening bilateral pulmonary infiltrates. Cardiomegaly an concomitant pulmonary venous congestion inferred. Left pleural effusion -slightly increased
--- NOTE | 2016-12-14 10:08 | CP.PCM.HP ---
History of Present Illness - History of Present Illness History of Present Illness: 75 year old female with shortness of beath, generalized malaise, leg pain with generalized edema,and fatigue reports to the [facility] ER for evaluation. Patientis under treatment for mylodisplastic syndrome, thrombocytopenia, anemia, chronic thrmbophlebitis, and degenerative joint disease. Lab results in ER reveal a potassium of 7.2 and platlets of 26,000. Admission was advised. Present on Admission - Present on Admission Any Indicators Present on Admission: No History of DVT/PE: Yes History of Uncontrolled Diabetes: No Urinary Catheter: No Decubitus Ulcer Present: No History Surgical Site Infection Following: None Review of Systems - Constitutional Constitutional: Fatigue, Lethargy, Snoring - EENT Eyes: Dry Eye Nose/Mouth/Throat: Dry Mouth - Cardiovascular Cardiovascular: Dyspnea on Exertion - Respiratory Respiratory: Dyspnea on Exertion - Gastrointestinal Gastrointestinal: Constipation - Genitourinary Genitourinary: Urinary Frequency - Reproductive: Female Reproductive:Female: Post Menopausal - Menstruation Menstruation: Post Menopausal - Musculoskeletal Musculoskeletal: Arthralgias - Integumentary Integumentary: Dry Skin - Neurological Neurological: Weakness - Psychiatric Psychiatric: Depression - Endocrine Endocrine: Fatigue Past Patient History - Infectious Disease Hx of Infectious Diseases: None - Tetanus Immunizations Tetanus Immunization: Unknown, Up to Date - Past Medical History & Family History Past Medical History?: Yes - Past Social History Smoking Status: Never Smoked Chewing Tobacco Use: No Cigar Use: No - CARDIAC Hx Hypertension: Yes Hx Peripheral Edema: Yes Hx Peripheral Vascular Disease: Yes - PULMONARY Hx Emphysema: Yes Hx Pneumonia: Yes - NEUROLOGICAL Hx Neurological Disorder: No Hx Vertigo: Yes - HEENT Hx HEENT Problems: No - RENAL Hx Chronic Kidney Disease: No - ENDOCRINE/METABOLIC Hx Diabetes Mellitus Type 2: Yes - HEMATOLOGICAL/ONCOLOGICAL Hx Anemia: Yes Hx Blood Transfusions: Yes - INTEGUMENTARY Hx Dermatological Problems: No Other/Comment: BLE w/ cauliflowered skin - MUSCULOSKELETAL/RHEUMATOLOGICAL Hx Arthritis: Yes Hx Falls: Yes (2 years ago) Hx Osteoarthritis: Yes - GASTROINTESTINAL Hx Gastrointestinal Disorders: No - GENITOURINARY/GYNECOLOGICAL Hx Genitourinary Disorders: No - PSYCHIATRIC Hx Anxiety: Yes Hx Substance Use: No - SURGICAL HISTORY Hx Cholecystectomy: Yes (in 2010) - ANESTHESIA Hx Anesthesia: Yes Hx Anesthesia Reactions: No Hx Malignant Hyperthermia: No Has any member of the family had a problem w/ anesthesia?: No Meds Allergies/Adverse Reactions: Allergies Allergy/AdvReac Type Severity Reaction Status Date / Time Gadolinium-Containing Allergy ITCHING Verified 12/13/16 15:45 Contrast Medi Physical Exam - Constitutional Appears: Chronically Ill - Head Exam Head Exam: NORMOCEPHALIC - Eye Exam Eye Exam: Normal appearance Pupil Exam: NORMAL ACCOMODATION - ENT Exam ENT Exam: Normal Exam - Neck Exam Neck exam: Positive for: Normal Inspection - Respiratory Exam Respiratory Exam: Decreased Breath Sounds - Cardiovascular Exam Cardiovascular Exam: REGULAR RHYTHM - GI/Abdominal Exam GI & Abdominal Exam: Hyperactive Bowel Sounds - Rectal Exam Rectal Exam: Deferred - Exam External exam: NORMAL EXTERNAL EXAM - Extremities Exam Extremities exam: Positive for: tenderness - Back Exam Back exam: muscle spasm - Neurological Exam Neurological exam: Oriented x3 - Psychiatric Exam Psychiatric exam: Depressed - Skin Skin Exam: Dry Results - Vital Signs Recent Vital Signs: Last Vital Signs Temp 98.5 F 12/14/16 07:12 Pulse 89 12/14/16 07:12 Resp 20 12/14/16 07:12 BP 135/64 12/14/16 07:12 Pulse Ox 95 12/14/16 07:12 - Labs Result Diagrams: 12/13/16 16:19 12/13/16 16:19 Labs: Laboratory Results - last 24 hr 12/14/16 07:25 POC Glucose (mg/dL) 82 Assessment & Plan (1) Anemia Status: Acute (2) Dehydration Status: Acute (3) Myelodysplasia, high grade Status: Acute (4) Thrombocytopenia Status: Acute (5) Osteoarthritis Status: Acute Priority: Medium
[2016-12-14] MEDS: Multiple Vitamins Tab PO SCH (10:18)
[2016-12-14] MEDS: Pantoprazole 40 mg EC Tab PO SCH (10:19)
[2016-12-14 11:27] LABS: CHLORIDE 111 mmol/L (98-107); SODIUM 143 mmol/L (132-148)
[2016-12-14 11:29] LABS: GFR AFRICAN-AMERICAN > 60
[2016-12-14 11:30] LABS: BLOOD UREA NITROGEN 18 mg/dL (7-17); CALCIUM 8.7 mg/dl (8.6-10.4); CARBON DIOXIDE 22 mmol/L (22-30); GLUCOSE,RANDOM 109 mg/dL (65-105)
[2016-12-14] MEDS: Ammonium Lactate 12% Lotion (225 g) EXT SCH ×2 (14:02→18:05)
--- NOTE | 2016-12-14 21:58 | CP.PCM.PN ---
Subjective - Date & Time of Evaluation Date of Evaluation: 12/14/16 Time of Evaluation: 13:15 - Subjective Subjective: Patient still fatigued and weak. Repeat K 4.0. Evaluation by wound care reveals open heel ulcer. Will request Podiatric evaluation by Dr Thompson. Objective - Vital Signs/Intake and Output Vital Signs (last 24 hours): Temp Pulse Resp BP Pulse Ox 98.4 F 89 20 147/78 95 12/14/16 15:00 12/14/16 15:00 12/14/16 15:00 12/14/16 15:00 12/14/16 15:00 Intake and Output: 12/14/16 12/15/16 18:59 06:59 Intake Total 420 Balance 420 - Medications Medications: Current Medications Albuterol Sulfate (Albuterol 0.042% Inhal Tricia (1.25mg/3ml) Ud) 1.25 mg INH RQ6 PRN PRN Reason: Shortness of Breath Bumetanide (Bumex) 0.5 mg PO DAILY PENDING SALE TO [facility] Last Admin: 12/14/16 10:18 Dose: 0.5 mg Enalapril Maleate (Vasotec) 20 mg PO DAILY PENDING SALE TO [facility] Last Admin: 12/14/16 10:18 Dose: 20 mg Epoetin Arturo (Procrit) 10,000 unit SC MWF PENDING SALE TO [facility] Ferrous Sulfate (Feosol) 325 mg PO TID PENDING SALE TO [facility] Last Admin: 12/14/16 18:05 Dose: 325 mg Insulin Aspart (Novolog) 0 unit SC ACHS PENDING SALE TO [facility] PRN Reason: Protocol Last Admin: 12/14/16 16:50 Dose: Not Given Lactic Acid (Lac-Hydrin 12% Lotion (225 G)) 1 gm EXT BID PENDING SALE TO [facility] Last Admin: 12/14/16 18:05 Dose: 1 applic Lorazepam (Ativan) 0.5 mg PO HS PRN PRN Reason: Anxiety Multivitamins (Hexavitamin) 1 tab PO DAILY PENDING SALE TO [facility] Last Admin: 12/14/16 10:18 Dose: 1 tab Nystatin (Nystop Topical Powder) 1 applic TOP BID PENDING SALE TO [facility] Last Admin: 12/14/16 18:05 Dose: 1 applic Pantoprazole Sodium (Protonix Ec Tab) 40 mg PO DAILY PENDING SALE TO [facility] Last Admin: 12/14/16 10:19 Dose: 40 mg Tramadol HCl (Ultram) 50 mg PO Q4H PRN PRN Reason: Pain, moderate (4-7) - Labs Labs: 12/14/16 11:15 - Constitutional Appears: Chronically Ill - Head Exam Head Exam: NORMOCEPHALIC - Eye Exam Eye Exam: Normal appearance Pupil Exam: NORMAL ACCOMODATION - ENT Exam ENT Exam: Normal Exam - Neck Exam Neck Exam: Normal Inspection - Respiratory Exam Respiratory Exam: Decreased Breath Sounds - Cardiovascular Exam Cardiovascular Exam: REGULAR RHYTHM - GI/Abdominal Exam GI & Abdominal Exam: Hyperactive Bowel Sounds - Rectal Exam Rectal Exam: Deferred - Exam External exam: NORMAL EXTERNAL EXAM - Extremities Exam Extremities Exam: Joint Swelling - Back Exam Back Exam: muscle spasm - Neurological Exam Neurological Exam: Oriented x3 - Psychiatric Exam Psychiatric exam: Depressed - Skin Skin Exam: Dry Assessment and Plan (1) Anemia Status: Acute (2) Dehydration Status: Acute (3) Myelodysplasia, high grade Status: Acute (4) Thrombocytopenia Status: Acute (5) Osteoarthritis Status: Acute (6) Heel ulcer Status: Acute
[2016-12-15] MEDS: (Novolog) Insulin Aspart, Recombinant 100 u/ml 10 ml vial SC SCH ×4 (07:54→21:07)
[2016-12-15] MEDS: EPOETIN ALFA 10,000 UNIT/ML ML SC SCH (09:27)
[2016-12-15] MEDS: Multiple Vitamins Tab PO SCH (09:28)
[2016-12-15] MEDS: Pantoprazole 40 mg EC Tab PO SCH (09:28)
[2016-12-15] MEDS: Ammonium Lactate 12% Lotion (225 g) EXT SCH ×3 (09:29→20:26)
--- NOTE | 2016-12-15 09:30 | CP.PCM.CON ---
<Collins Thompson - Last Filed: 12/15/16 09:29> History of Present Illness - History of Present Illness History of Present Illness: pt seen for treatment of heel ulcer right chronic in nature of long duration . Past Patient History - Infectious Disease Hx of Infectious Diseases: None - Tetanus Immunizations Tetanus Immunization: Unknown, Up to Date - Past Medical History & Family History Past Medical History?: Yes - Past Social History Smoking Status: Never Smoked Chewing Tobacco Use: No Cigar Use: No - CARDIAC Hx Hypertension: Yes Hx Peripheral Edema: Yes Hx Peripheral Vascular Disease: Yes - PULMONARY Hx Emphysema: Yes Hx Pneumonia: Yes - NEUROLOGICAL Hx Neurological Disorder: No Hx Vertigo: Yes - HEENT Hx HEENT Problems: No - RENAL Hx Chronic Kidney Disease: No - ENDOCRINE/METABOLIC Hx Diabetes Mellitus Type 2: Yes - HEMATOLOGICAL/ONCOLOGICAL Hx Anemia: Yes Hx Blood Transfusions: Yes - INTEGUMENTARY Hx Dermatological Problems: No Other/Comment: BLE w/ cauliflowered skin - MUSCULOSKELETAL/RHEUMATOLOGICAL Hx Arthritis: Yes Hx Falls: Yes (2 years ago) Hx Osteoarthritis: Yes - GASTROINTESTINAL Hx Gastrointestinal Disorders: No - GENITOURINARY/GYNECOLOGICAL Hx Genitourinary Disorders: No - PSYCHIATRIC Hx Anxiety: Yes Hx Substance Use: No - SURGICAL HISTORY Hx Cholecystectomy: Yes (in 2010) - ANESTHESIA Hx Anesthesia: Yes Hx Anesthesia Reactions: No Hx Malignant Hyperthermia: No Has any member of the family had a problem w/ anesthesia?: No Meds Allergies/Adverse Reactions: Allergies Allergy/AdvReac Type Severity Reaction Status Date / Time Gadolinium-Containing Allergy ITCHING Verified 12/13/16 15:45 Contrast Medi - Medications Medications: Current Medications Albuterol Sulfate (Albuterol 0.042% Inhal Tricia (1.25mg/3ml) Ud) 1.25 mg INH RQ6 PRN PRN Reason: Shortness of Breath Bumetanide (Bumex) 0.5 mg PO DAILY [facility] Last Admin: 12/15/16 09:28 Dose: 0.5 mg Enalapril Maleate (Vasotec) 20 mg PO DAILY [facility] Last Admin: 12/15/16 09:28 Dose: 20 mg Epoetin Arturo (Procrit) 10,000 unit SC MWF [facility] Last Admin: 12/15/16 09:27 Dose: 10,000 unit Ferrous Sulfate (Feosol) 325 mg PO TID [facility] Last Admin: 12/15/16 09:28 Dose: 325 mg Insulin Aspart (Novolog) 0 unit SC ACHS [facility] PRN Reason: Protocol Last Admin: 12/15/16 07:54 Dose: Not Given Lactic Acid (Lac-Hydrin 12% Lotion (225 G)) 1 gm EXT BID [facility] Last Admin: 12/14/16 18:05 Dose: 1 applic Lorazepam (Ativan) 0.5 mg PO HS PRN PRN Reason: Anxiety Multivitamins (Hexavitamin) 1 tab PO DAILY [facility] Last Admin: 12/15/16 09:28 Dose: 1 tab Nystatin (Nystop Topical Powder) 1 applic TOP BID [facility] Last Admin: 12/14/16 18:05 Dose: 1 applic Pantoprazole Sodium (Protonix Ec Tab) 40 mg PO DAILY [facility] Last Admin: 12/15/16 09:28 Dose: 40 mg Tramadol HCl (Ultram) 50 mg PO Q4H PRN PRN Reason: Pain, moderate (4-7) Last Admin: 12/15/16 06:32 Dose: 50 mg Results - Vital Signs Recent Vital Signs: Last Vital Signs Temp 98.3 F 12/15/16 07:17 Pulse 93 H 12/15/16 07:17 Resp 20 12/15/16 07:17 BP 143/71 12/15/16 09:28 Pulse Ox 96 12/15/16 07:17 - Labs Result Diagrams: 12/13/16 16:19 12/14/16 11:15 Labs: Laboratory Results - last 24 hr 12/14/16 12/14/16 12/14/16 11:15 12:00 16:40 Sodium 143 Potassium 4.0 Chloride 111 H Carbon Dioxide 22 Anion Gap 14 BUN 18 H Creatinine 0.7 Est GFR ( Amer) > 60 Est GFR (Non-Af Amer) > 60 POC Glucose (mg/dL) 164 H 144 H Random Glucose 109 H Calcium 8.7 NT-Pro-B Natriuret Pep 12/14/16 12/15/16 12/15/16 21:02 07:23 07:28 Sodium Potassium Chloride Carbon Dioxide Anion Gap BUN Creatinine Est GFR ( Amer) Est GFR (Non-Af Amer) POC Glucose (mg/dL) 158 H 123 H Random Glucose Calcium NT-Pro-B Natriuret Pep 2430 H <Sophia Argueta - Last Filed: 12/15/16 15:38> History of Present Illness - History of Present Illness History of Present Illness: 76 year old female with Pmhx including mylodisplastic syndrome, thrombocytopenia , anemia, chronic thrmbophlebitis, and degenerative joint disease was seen at bedside for right chronic heel ulcer. Patient states that her right foot is very tender. She currently denies any v/f/c/sob/cp. Meds - Medications Medications: Current Medications Albuterol Sulfate (Albuterol 0.042% Inhal Tricia (1.25mg/3ml) Ud) 1.25 mg INH RQ6 PRN PRN Reason: Shortness of Breath Bumetanide (Bumex) 0.5 mg PO DAILY [facility] Last Admin: 12/15/16 09:28 Dose: 0.5 mg Collagenase (Santyl) 0 gm TOP DAILY [facility] Last Admin: 12/15/16 11:14 Dose: 1 applic Enalapril Maleate (Vasotec) 20 mg PO DAILY [facility] Last Admin: 12/15/16 09:28 Dose: 20 mg Epoetin Arturo (Procrit) 10,000 unit SC MWF [facility] Last Admin: 12/15/16 09:27 Dose: 10,000 unit Ferrous Sulfate (Feosol) 325 mg PO TID [facility] Last Admin: 12/15/16 14:47 Dose: 325 mg Insulin Aspart (Novolog) 0 unit SC ACHS [facility] PRN Reason: Protocol Last Admin: 12/15/16 12:38 Dose: Not Given Lactic Acid (Lac-Hydrin 12% Lotion (225 G)) 1 gm EXT BID [facility] Last Admin: 12/15/16 09:29 Dose: 1 applic Lorazepam (Ativan) 0.5 mg PO HS PRN PRN Reason: Anxiety Multivitamins (Hexavitamin) 1 tab PO DAILY [facility] Last Admin: 12/15/16 09:28 Dose: 1 tab Nystatin (Nystop Topical Powder) 1 applic TOP BID [facility] Last Admin: 12/15/16 11:00 Dose: 1 applic Pantoprazole Sodium (Protonix Ec Tab) 40 mg PO DAILY [facility] Last Admin: 12/15/16 09:28 Dose: 40 mg Tramadol HCl (Ultram) 50 mg PO Q4H PRN PRN Reason: Pain, moderate (4-7) Last Admin: 12/15/16 11:13 Dose: 50 mg Physical Exam - Constitutional Appears: Non-toxic, No Acute Distress - Extremities Exam Additional comments: dressing c/d/ to b/l legs right LE focused exam Vasc: DP and PT pulses non-palpable, CFT < 3 sec, temp unremarkable. Neuro: Protective sensation diminished, light touch sensation intact. Derm: Open ulceration noted to the plantar right heel measuring approximately 2 cm by 2 cm, no drainage, no puruelnce, no probe to bone, no malodor noted. Ortho: Tenderness on palpation of right foot plantar ulceration Decreased ROM to LE secondary to edema with weakness. - Neurological Exam Neurological exam: Alert, Oriented x3 - Psychiatric Exam Psychiatric exam: Normal Affect, Normal Mood Results - Vital Signs Recent Vital Signs: Last Vital Signs Temp 98.3 F 12/15/16 07:17 Pulse 93 H 12/15/16 07:17 Resp 20 12/15/16 07:17 BP 143/71 12/15/16 09:28 Pulse Ox 96 12/15/16 07:17 - Labs Result Diagrams: 12/15/16 11:58 12/14/16 11:15 Labs: Laboratory Results - last 24 hr 12/14/16 12/14/16 12/15/16 16:40 21:02 07:23 WBC RBC Hgb Hct MCV MCH MCHC RDW Plt Count MPV Neut % (Auto) Lymph % (Auto) [place] % (Auto) Eos % (Auto) Baso % (Auto) Neut # Lymph # [place] # Eos # Baso # Neutrophils % (Manual) Band Neutrophils % Lymphocytes % (Manual) Monocytes % (Manual) Nucleated RBC % Platelet Estimate Large Platelets Giant Platelets Polychromasia Hypochromasia (manual) Poikilocytosis (manual Anisocytosis (manual) Microcytosis (manual) Macrocytosis (manual) Target Cells Tear Drop Cells Ovalocytes [place] Cells POC Glucose (mg/dL) 144 H 158 H NT-Pro-B Natriuret Pep 2430 H 12/15/16 12/15/16 12/15/16 07:28 11:15 11:58 WBC 12.7 H RBC 2.33 L Hgb 7.2 L D Hct 23.8 L MCV 102.4 H MCH 30.8 MCHC 30.1 L RDW 25.9 H Plt Count 21 L* MPV 8.0 Neut % (Auto) 60.8 Lymph % (Auto) 14.0 L [place] % (Auto) 24.5 H Eos % (Auto) 0.1 Baso % (Auto) 0.6 Neut # 7.7 H Lymph # 1.8 [place] # 3.1 H Eos # 0.0 Baso # 0.1 Neutrophils % (Manual) 75 Band Neutrophils % 1 Lymphocytes % (Manual) 10 L Monocytes % (Manual) 14 H Nucleated RBC % 2 H Platelet Estimate Markedly decreased L Large Platelets Present Giant Platelets Present Polychromasia Slight Hypochromasia (manual) Moderate Poikilocytosis (manual Slight Anisocytosis (manual) Slight Microcytosis (manual) Slight Macrocytosis (manual) Slight Target Cells Slight Tear Drop Cells Slight Ovalocytes Slight [place] Cells Slight POC Glucose (mg/dL) 123 H 172 H NT-Pro-B Natriuret Pep Assessment & Plan - Assessment and Plan (Free Text) Assessment: 76 year old female with right plantar heel ulceration Plan: patient examined and evaluated discussed in detail with attending, Dr. Thompson chart, labs, vitals reviewed;afebrile, WBC 12.7 right heel dressed with DSD wound culture taken from right heel podiatry will continue to follow patient while in house
[2016-12-15] MEDS: Collagenase 250 Units/gm Ointment(30 gm) TOP SCH (11:14)
[2016-12-15 12:07] LABS: BASO # 0.1 K/uL (0.0-0.2); EOS % 0.1 % (0.0-4.0); WHITE BLOOD COUNT 12.7 K/uL (4.8-10.8)
[2016-12-15 12:11] LABS: BASO % 0.6 % (0.0-2.0); HEMATOCRIT 23.8 % (34.0-47.0); LYMPH # 1.8 K/uL (1.0-4.3); MEAN CELL VOLUME 102.4 fL (81.0-99.0); MEAN CORPUSCULAR HEMOGLOBIN 30.8 pg (27.0-31.0); MEAN CORPUSCULAR HGB CONC 30.1 g/dL (33.0-37.0); MONO # 3.1 K/uL (0.0-0.8); MONO % 24.5 % (0.0-10.0); NRBC % 2.6 % (0.0-2.0); RED CELL DISTRIBUTION WIDTH 25.9 % (11.5-14.5)
[2016-12-15 12:20] LABS: PLATELET COUNT 21 K/uL (130-400)
[2016-12-15 12:45] LABS: NEUTROPHIL 75 % (50-75); NUCLEATED RED BLOOD CELL 2 % (0-0); TOTAL CELLS COUNTED 100
[2016-12-15 12:47] LABS: GIANT PLATELETS PRESENT; LARGE PLATELETS PRESENT
--- NOTE | 2016-12-15 13:04 | RAD ---
PROCEDURE: Right Foot Radiographs. HISTORY: infection bone heel COMPARISON: None. FINDINGS: BONES: Plantar calcaneal spur. No osseous erosion or destruction. No periosteal reaction. JOINTS: Normal. SOFT TISSUES: Diffuse soft tissue swelling. Subcutaneous gas beneath the calcaneus likely related to ulceration. OTHER FINDINGS: None. IMPRESSION: No plain radiographic evidence of osteomyelitis.
--- NOTE | 2016-12-15 19:17 | CP.PCM.CON ---
History of Present Illness - History of Present Illness History of Present Illness: 76 yo female brought to the ED because she was found to be weak, with shortness of breath and poor appetite. Known to have a myelodysplasia, a chronic lymphedema of both lower extremities, she is found to have a CHF on the admitting CXR, a Pro-BNP: 2430, low Hbg, low platelets. An echocardiogram done on 07/14/2016 at revealed a normal LV systolic function with an EF 71%.a grade I diastolic dysfunction, mild TR with normal pulmonary pressures.She was on Bumex 0.5 mg PO qd and Lisinopril for HPTN. Review of Systems - Constitutional Constitutional: Anorexia, Weakness - Cardiovascular Cardiovascular: Dyspnea - Respiratory Respiratory: Dyspnea - Integumentary Integumentary: Skin Ulcer - Psychiatric Psychiatric: Anxiety Past Patient History - Infectious Disease Hx of Infectious Diseases: None - Tetanus Immunizations Tetanus Immunization: Unknown, Up to Date - Past Medical History & Family History Past Medical History?: Yes - Past Social History Smoking Status: Never Smoked Chewing Tobacco Use: No Cigar Use: No Alcohol: None Drugs: Denies Home Situation {Lives}: With Family Domestic Violence: Negative - CARDIAC Hx Hypertension: Yes Hx Peripheral Edema: Yes Hx Peripheral Vascular Disease: Yes - PULMONARY Hx Emphysema: Yes Hx Pneumonia: Yes - NEUROLOGICAL Hx Neurological Disorder: No Hx Vertigo: Yes - HEENT Hx HEENT Problems: No - RENAL Hx Chronic Kidney Disease: No - ENDOCRINE/METABOLIC Hx Diabetes Mellitus Type 2: Yes - HEMATOLOGICAL/ONCOLOGICAL Hx Anemia: Yes Hx Blood Transfusions: Yes - INTEGUMENTARY Hx Dermatological Problems: No Other/Comment: BLE w/ cauliflowered skin - MUSCULOSKELETAL/RHEUMATOLOGICAL Hx Arthritis: Yes Hx Falls: Yes (2 years ago) Hx Osteoarthritis: Yes - GASTROINTESTINAL Hx Gastrointestinal Disorders: No - GENITOURINARY/GYNECOLOGICAL Hx Genitourinary Disorders: No - PSYCHIATRIC Hx Anxiety: Yes Hx Substance Use: No - SURGICAL HISTORY Hx Cholecystectomy: Yes (in 2010) - ANESTHESIA Hx Anesthesia: Yes Hx Anesthesia Reactions: No Hx Malignant Hyperthermia: No Has any member of the family had a problem w/ anesthesia?: No Meds Allergies/Adverse Reactions: Allergies Allergy/AdvReac Type Severity Reaction Status Date / Time Gadolinium-Containing Allergy ITCHING Verified 12/13/16 15:45 Contrast Medi - Medications Medications: Current Medications Albuterol Sulfate (Albuterol 0.042% Inhal Tricia (1.25mg/3ml) Ud) 1.25 mg INH RQ6 PRN PRN Reason: Shortness of Breath Bumetanide (Bumex) 0.5 mg PO DAILY [facility] Last Admin: 12/15/16 09:28 Dose: 0.5 mg Collagenase (Santyl) 0 gm TOP DAILY [facility] Last Admin: 12/15/16 11:14 Dose: 1 applic Enalapril Maleate (Vasotec) 20 mg PO DAILY [facility] Last Admin: 12/15/16 09:28 Dose: 20 mg Epoetin Arturo (Procrit) 10,000 unit SC MWF [facility] Last Admin: 12/15/16 09:27 Dose: 10,000 unit Ferrous Sulfate (Feosol) 325 mg PO TID [facility] Last Admin: 12/15/16 17:07 Dose: 325 mg Insulin Aspart (Novolog) 0 unit SC ACHS [facility] PRN Reason: Protocol Last Admin: 12/15/16 17:07 Dose: 1 unit Lactic Acid (Lac-Hydrin 12% Lotion (225 G)) 1 gm EXT BID [facility] Last Admin: 12/15/16 17:08 Dose: 1 applic Lorazepam (Ativan) 0.5 mg PO HS PRN PRN Reason: Anxiety Multivitamins (Hexavitamin) 1 tab PO DAILY [facility] Last Admin: 12/15/16 09:28 Dose: 1 tab Nystatin (Nystop Topical Powder) 1 applic TOP BID [facility] Last Admin: 12/15/16 17:09 Dose: 1 applic Pantoprazole Sodium (Protonix Ec Tab) 40 mg PO DAILY [facility] Last Admin: 12/15/16 09:28 Dose: 40 mg Tramadol HCl (Ultram) 50 mg PO Q4H PRN PRN Reason: Pain, moderate (4-7) Last Admin: 12/15/16 11:13 Dose: 50 mg Physical Exam - Constitutional Appears: Chronically Ill - Head Exam Head Exam: NORMAL INSPECTION - Eye Exam Eye Exam: Normal appearance - ENT Exam ENT Exam: Mucous Membranes Moist - Neck Exam Neck exam: Positive for: Normal Inspection - Respiratory Exam Additional comments: rales heard at both lung leo. - Cardiovascular Exam Cardiovascular Exam: REGULAR RHYTHM, Systolic Murmur - GI/Abdominal Exam GI & Abdominal Exam: Normal Bowel Sounds, Soft - Rectal Exam Rectal Exam: Deferred - Extremities Exam Additional comments: [place] of both legs with skin ulcerations. - Back Exam Back exam: NORMAL INSPECTION - Neurological Exam Neurological exam: Alert, Oriented x3 - Psychiatric Exam Psychiatric exam: Anxious - Skin Skin Exam: Vesicles Results - Vital Signs Recent Vital Signs: Last Vital Signs Temp 98.9 F 12/15/16 15:00 Pulse 82 12/15/16 15:00 Resp 20 12/15/16 15:00 BP 129/61 12/15/16 15:00 Pulse Ox 94 L 12/15/16 15:00 - Labs Result Diagrams: 12/15/16 11:58 12/14/16 11:15 Labs: Laboratory Results - last 24 hr 12/14/16 12/15/16 12/15/16 21:02 07:23 07:28 WBC RBC Hgb Hct MCV MCH MCHC RDW Plt Count MPV Neut % (Auto) Lymph % (Auto) [place] % (Auto) Eos % (Auto) Baso % (Auto) Neut # Lymph # [place] # Eos # Baso # Neutrophils % (Manual) Band Neutrophils % Lymphocytes % (Manual) Monocytes % (Manual) Nucleated RBC % Platelet Estimate Large Platelets Giant Platelets Polychromasia Hypochromasia (manual) Poikilocytosis (manual Anisocytosis (manual) Microcytosis (manual) Macrocytosis (manual) Target Cells Tear Drop Cells Ovalocytes [place] Cells POC Glucose (mg/dL) 158 H 123 H NT-Pro-B Natriuret Pep 2430 H 12/15/16 12/15/16 12/15/16 11:15 11:58 16:17 WBC 12.7 H RBC 2.33 L Hgb 7.2 L D Hct 23.8 L MCV 102.4 H MCH 30.8 MCHC 30.1 L RDW 25.9 H Plt Count 21 L* MPV 8.0 Neut % (Auto) 60.8 Lymph % (Auto) 14.[address] [place] % (Auto) 24.5 H Eos % (Auto) 0.1 Baso % (Auto) 0.6 Neut # 7.7 H Lymph # 1.8 [place] # 3.1 H Eos # 0.0 Baso # 0.1 Neutrophils % (Manual) 75 Band Neutrophils % 1 Lymphocytes % (Manual) 10 L Monocytes % (Manual) 14 H Nucleated RBC % 2 H Platelet Estimate Markedly decreased L Large Platelets Present Giant Platelets Present Polychromasia Slight Hypochromasia (manual) Moderate Poikilocytosis (manual Slight Anisocytosis (manual) Slight Microcytosis (manual) Slight Macrocytosis (manual) Slight Target Cells Slight Tear Drop Cells Slight Ovalocytes Slight [place] Cells Slight POC Glucose (mg/dL) 172 H 190 H NT-Pro-B Natriuret Pep Assessment & Plan (1) Pancytopenia Assessment and Plan: As per Dr Solo. Status: Acute (2) Lymphedema of lower extremity Assessment and Plan: As per Dr Thompson. Status: Acute (3) Acute on chronic diastolic (congestive) heart failure Assessment and Plan: Switch to IV Lasix. Status: Acute
[2016-12-15] MEDS: Magnesium Oxide 400 mg Tab UD PO SCH (19:57)
--- NOTE | 2016-12-15 22:40 | CP.PCM.PN ---
Subjective - Date & Time of Evaluation Date of Evaluation: 12/15/16 Time of Evaluation: 13:20 - Subjective Subjective: Patient more responsive and less congested. Today's hct 23 and platlets 21,000. Ms Jaeger was seen by Dr Thompson for evaluation and treatment of right heel ulcer. Will repeat CBC and electroytes in AM. Objective - Vital Signs/Intake and Output Vital Signs (last 24 hours): Temp Pulse Resp BP Pulse Ox 98.9 F 88 22 135/71 96 12/15/16 15:00 12/15/16 19:55 12/15/16 19:55 12/15/16 19:57 12/15/16 19:55 Intake and Output: 12/15/16 12/16/16 18:59 06:59 Intake Total 300 Balance 300 - Medications Medications: Current Medications Albuterol Sulfate (Albuterol 0.042% Inhal Tricia (1.25mg/3ml) Ud) 1.25 mg INH RQ6 PRN PRN Reason: Shortness of Breath Collagenase (Santyl) 0 gm TOP DAILY [facility] Last Admin: 12/15/16 11:14 Dose: 1 applic Enalapril Maleate (Vasotec) 20 mg PO DAILY [facility] Last Admin: 12/15/16 09:28 Dose: 20 mg Epoetin Arturo (Procrit) 10,000 unit SC MWF [facility] Last Admin: 12/15/16 09:27 Dose: 10,000 unit Ferrous Sulfate (Feosol) 325 mg PO TID [facility] Last Admin: 12/15/16 17:07 Dose: 325 mg Furosemide (Lasix) 40 mg IVP DAILY [facility] Insulin Aspart (Novolog) 0 unit SC ACHS [facility] PRN Reason: Protocol Last Admin: 12/15/16 21:07 Dose: Not Given Lactic Acid (Lac-Hydrin 12% Lotion (225 G)) 1 gm EXT BID [facility] Last Admin: 12/15/16 20:26 Dose: Not Given Lorazepam (Ativan) 0.5 mg PO HS PRN PRN Reason: Anxiety Magnesium Oxide (Mag-Ox) 400 mg PO BID [facility] Last Admin: 12/15/16 19:57 Dose: 400 mg Multivitamins (Hexavitamin) 1 tab PO DAILY [facility] Last Admin: 12/15/16 09:28 Dose: 1 tab Nystatin (Nystop Topical Powder) 1 applic TOP BID [facility] Last Admin: 12/15/16 17:09 Dose: 1 applic Pantoprazole Sodium (Protonix Ec Tab) 40 mg PO DAILY [facility] Last Admin: 12/15/16 09:28 Dose: 40 mg Tramadol HCl (Ultram) 50 mg PO Q4H PRN PRN Reason: Pain, moderate (4-7) Last Admin: 12/15/16 11:13 Dose: 50 mg - Labs Labs: 12/15/16 11:58 12/14/16 11:15 - Constitutional Appears: Chronically Ill - Eye Exam Eye Exam: Normal appearance Pupil Exam: NORMAL ACCOMODATION - ENT Exam ENT Exam: Normal Oropharynx - Neck Exam Neck Exam: Normal Inspection - Respiratory Exam Respiratory Exam: Decreased Breath Sounds - Cardiovascular Exam Cardiovascular Exam: REGULAR RHYTHM - GI/Abdominal Exam GI & Abdominal Exam: Hyperactive Bowel Sounds - Rectal Exam Rectal Exam: Deferred - Exam External exam: NORMAL EXTERNAL EXAM - Extremities Exam Extremities Exam: Pedal Edema - Back Exam Back Exam: muscle spasm - Neurological Exam Neurological Exam: Alert - Psychiatric Exam Psychiatric exam: Depressed - Skin Skin Exam: Dry Assessment and Plan (1) Anemia Status: Acute (2) Dehydration Status: Acute (3) Myelodysplasia, high grade Status: Acute (4) Thrombocytopenia Status: Acute (5) Osteoarthritis Status: Acute (6) Heel ulcer Status: Acute
--- NOTE | 2016-12-16 01:10 | CON ---
HISTORY OF PRESENT ILLNESS: This is a 75-year-old with myelodysplastic syndrome, who is now admitted for generalized weakness. PHYSICAL EXAMINATION: SKIN: No petechia. No bruises. HEENT: Anicteric. NODES: Nonpalpable in the axillary, cervical, supraclavicular, or inguinal regions. LUNGS: Clear at present. No vertebral tenderness. HEART: S1 and S2. ABDOMEN: Shows no liver or spleen. No tenderness. EXTREMITIES: No edema. PRODUCTION TESTER: No focal findings. LABORATORY DATA: White count is 14,000, hemoglobin 9.8, MCV 100.7, and a platelet count 29. Her chemistries basically show albumin of 18, creatinine 0.7, blood sugars 150 range. She was in the hospital about a month ago and she actually received transfusions at that time. At this point, her hemoglobin is 9.8, she is able to lie flat in bed. I will hold off on the transfusion at this point. She has other medical problems including heart failure and I suspect she can go into fluid overload with so many transfusions. At this point, she is getting Procrit 10,000 units 3 times a week. We will continue that kind of regimen for now. If hemoglobin continues to drop below 9, I will consider giving another blood transfusion. Matthew Fitzgerald MD
[2016-12-16] MEDS: Albuterol 0.042% Inhal Sol (1.25 mg/3 mL) UD INH PRN ×3 (08:15→20:23)
[2016-12-16 08:26] LABS: CHLORIDE 106 mmol/L (98-107)
[2016-12-16 08:27] LABS: BASO # 0.1 K/uL (0.0-0.2); POTASSIUM 3.1 mmol/L (3.6-5.2); SODIUM 143 mmol/L (132-148)
[2016-12-16 08:29] LABS: ALB/GLOB RATIO 0.4 (1.0-2.1); AST/SGOT 15 U/L (14-36); BILIRUBIN,TOTAL 0.9 mg/dL (0.2-1.3); BLOOD UREA NITROGEN 17 mg/dL (7-17); CARBON DIOXIDE 27 mmol/L (22-30); GFR AFRICAN-AMERICAN > 60; GLUCOSE,RANDOM 110 mg/dL (65-105); TOTAL PROTEIN 7.1 g/dL (6.3-8.3)
[2016-12-16 08:30] LABS: ALKALINE PHOSPHATASE 173 U/L (38-126); ALT/SGPT 19 U/L (9-52); CALCIUM 8.5 mg/dl (8.6-10.4)
[2016-12-16] MEDS: (Novolog) Insulin Aspart, Recombinant 100 u/ml 10 ml vial SC SCH ×4 (08:31→22:31)
[2016-12-16 08:37] LABS: BASO % 0.6 % (0.0-2.0); EOS # 0.1 K/uL (0.0-0.7); EOS % 0.6 % (0.0-4.0); HEMATOCRIT 29.1 % (34.0-47.0); LYMPH # 2.2 K/uL (1.0-4.3); LYMPH % 17.5 % (20.0-40.0); MEAN CORPUSCULAR HEMOGLOBIN 29.9 pg (27.0-31.0); MEAN CORPUSCULAR HGB CONC 30.4 g/dL (33.0-37.0); MONO # 3.2 K/uL (0.0-0.8); MONO % 25.2 % (0.0-10.0); NRBC % 4.3 % (0.0-2.0); RED CELL DISTRIBUTION WIDTH 27.2 % (11.5-14.5); WHITE BLOOD COUNT 12.6 K/uL (4.8-10.8)
[2016-12-16 08:41] LABS: MEAN CELL VOLUME 99.1 fL (81.0-99.0); PLATELET COUNT 18 K/uL (130-400)
[2016-12-16] MEDS: Pantoprazole 40 mg EC Tab PO SCH (09:19)
[2016-12-16] MEDS: Magnesium Oxide 400 mg Tab UD PO SCH ×2 (09:19→18:07)
[2016-12-16] MEDS: Multiple Vitamins Tab PO SCH (09:19)
[2016-12-16] MEDS: Ammonium Lactate 12% Lotion (225 g) EXT SCH ×2 (09:20→18:09)
[2016-12-16] MEDS ORDERED: Potassium Chloride 20 mEq ER Tab PO ONE (10:00)
--- NOTE | 2016-12-16 10:09 | CP.PCM.PN ---
<Collins Thompson - Last Filed: 12/16/16 10:06> Subjective - Date & Time of Evaluation Date of Evaluation: 12/16/16 Time of Evaluation: 10:05 - Subjective Subjective: pt seen for ulcer right foot chronic in nature .Xray reviewed "gas" is pocket associated with ulcer not true infectious gas . Objective - Vital Signs/Intake and Output Vital Signs (last 24 hours): Temp Pulse Resp BP Pulse Ox 98.2 F 87 20 124/68 97 12/16/16 07:32 12/16/16 07:32 12/16/16 07:32 12/16/16 09:22 12/16/16 07:32 Intake and Output: 12/16/16 12/16/16 06:59 18:59 Intake Total 1397.75 Balance 1397.75 - Medications Medications: Current Medications Albuterol Sulfate (Albuterol 0.042% Inhal Tricia (1.25mg/3ml) Ud) 1.25 mg INH RQ6 PRN PRN Reason: Shortness of Breath Last Admin: 12/16/16 08:15 Dose: 1.25 mg Collagenase (Santyl) 0 gm TOP DAILY [facility] Last Admin: 12/15/16 11:14 Dose: 1 applic Enalapril Maleate (Vasotec) 20 mg PO DAILY [facility] Last Admin: 12/16/16 09:22 Dose: Not Given Epoetin Arturo (Procrit) 10,000 unit SC MWF [facility] Last Admin: 12/15/16 09:27 Dose: 10,000 unit Ferrous Sulfate (Feosol) 325 mg PO TID [facility] Last Admin: 12/16/16 09:19 Dose: 325 mg Furosemide (Lasix) 40 mg IVP DAILY [facility] Last Admin: 12/16/16 09:19 Dose: 40 mg Insulin Aspart (Novolog) 0 unit SC ACHS [facility] PRN Reason: Protocol Last Admin: 12/16/16 08:31 Dose: Not Given Lactic Acid (Lac-Hydrin 12% Lotion (225 G)) 1 gm EXT BID [facility] Last Admin: 12/16/16 09:20 Dose: 1 applic Lorazepam (Ativan) 0.5 mg PO HS PRN PRN Reason: Anxiety Magnesium Oxide (Mag-Ox) 400 mg PO BID [facility] Last Admin: 12/16/16 09:19 Dose: 400 mg Multivitamins (Hexavitamin) 1 tab PO DAILY [facility] Last Admin: 12/16/16 09:19 Dose: 1 tab Nystatin (Nystop Topical Powder) 1 applic TOP BID [facility] Last Admin: 12/16/16 09:20 Dose: 1 applic Pantoprazole Sodium (Protonix Ec Tab) 40 mg PO DAILY [facility] Last Admin: 12/16/16 09:19 Dose: 40 mg Tramadol HCl (Ultram) 50 mg PO Q4H PRN PRN Reason: Pain, moderate (4-7) Last Admin: 12/15/16 11:13 Dose: 50 mg - Labs Labs: 12/16/16 08:07 12/16/16 08:07 <Nuris Myles - Last Filed: 12/16/16 15:49> Subjective - Subjective Subjective: 76 year old female seen at bedside for right chronic heel ulcer, with attending Dr Thompson. Patient states that her right foot is very tender during dressing changes and direct maniputaltion but fine otherwise. She currently denies any v/f/c/sob/cp Objective - Vital Signs/Intake and Output Vital Signs (last 24 hours): Temp Pulse Resp BP Pulse Ox 98.2 F 68 20 124/68 97 12/16/16 07:32 12/16/16 08:15 12/16/16 07:32 12/16/16 09:22 12/16/16 07:32 Intake and Output: 12/16/16 12/16/16 06:59 18:59 Intake Total 1397.75 360 Balance 1397.75 360 - Medications Medications: Current Medications Albuterol Sulfate (Albuterol 0.042% Inhal Tricia (1.25mg/3ml) Ud) 1.25 mg INH RQ6 PRN PRN Reason: Shortness of Breath Last Admin: 12/16/16 13:14 Dose: 1.25 mg Collagenase (Santyl) 0 gm TOP DAILY [facility] Last Admin: 12/16/16 10:14 Dose: 1 applic Enalapril Maleate (Vasotec) 20 mg PO DAILY [facility] Last Admin: 12/16/16 09:22 Dose: Not Given Epoetin Arturo (Procrit) 10,000 unit SC MWF [facility] Last Admin: 12/15/16 09:27 Dose: 10,000 unit Ferrous Sulfate (Feosol) 325 mg PO TID [facility] Last Admin: 12/16/16 13:23 Dose: 325 mg Furosemide (Lasix) 40 mg IVP DAILY [facility] Last Admin: 12/16/16 09:19 Dose: 40 mg Insulin Aspart (Novolog) 0 unit SC ACHS [facility] PRN Reason: Protocol Last Admin: 12/16/16 12:27 Dose: 2 unit Lactic Acid (Lac-Hydrin 12% Lotion (225 G)) 1 gm EXT BID [facility] Last Admin: 12/16/16 09:20 Dose: 1 applic Lorazepam (Ativan) 0.5 mg PO HS PRN PRN Reason: Anxiety Magnesium Oxide (Mag-Ox) 400 mg PO BID [facility] Last Admin: 12/16/16 09:19 Dose: 400 mg Multivitamins (Hexavitamin) 1 tab PO DAILY [facility] Last Admin: 12/16/16 09:19 Dose: 1 tab Nystatin (Nystop Topical Powder) 1 applic TOP BID [facility] Last Admin: 12/16/16 09:20 Dose: 1 applic Pantoprazole Sodium (Protonix Ec Tab) 40 mg PO DAILY [facility] Last Admin: 12/16/16 09:19 Dose: 40 mg Tramadol HCl (Ultram) 50 mg PO Q4H PRN PRN Reason: Pain, moderate (4-7) Last Admin: 12/16/16 12:32 Dose: 50 mg - Labs Labs: 12/16/16 08:07 12/16/16 08:07 - Constitutional Appears: Well, Non-toxic, No Acute Distress - Extremities Exam Additional comments: dressing c/d/ to b/l legs right LE focused exam Vasc: DP and PT pulses non-palpable, CFT < 3 sec, temp unremarkable. Neuro: Protective sensation diminished, light touch sensation intact. Derm: Open ulceration noted to the plantar right heel measuring approximately 2 cm by 2 cm, no drainage, no puruelnce, no probe to bone, no malodor noted. Ortho: Tenderness on palpation of right foot plantar ulceration Decreased ROM to LE secondary to edema with weakness. - Neurological Exam Neurological Exam: Alert, Awake, Oriented x3 - Psychiatric Exam Psychiatric exam: Normal Affect, Normal Mood Assessment and Plan - Assessment and Plan (Free Text) Assessment: 76 year old female with right plantar heel ulceration Plan: Patient examined and evaluated with attending, Dr. Thompson chart, labs, vitals reviewed;afebrile, WBC 12.6 right heel dressed with DSD Ordered Multipodus boots for use while in bed to off-load heels. wound culture results- pending. podiatry will continue to follow patient while in house
[2016-12-16 10:14] LABS: NEUTROPHIL 74 % (50-75); NUCLEATED RED BLOOD CELL 3 % (0-0); TOTAL CELLS COUNTED 100
[2016-12-16] MEDS: Collagenase 250 Units/gm Ointment(30 gm) TOP SCH (10:14)
[2016-12-16 10:15] LABS: SPHEROCYTES SLIGHT
--- NOTE | 2016-12-16 16:53 | CP.PCM.PN ---
Subjective - Date & Time of Evaluation Date of Evaluation: 12/16/16 Time of Evaluation: 16:50 - Subjective Subjective: Patient much less SOB, with better appetite and much more alert. K+:3.1 Received 40 mEq of KCl this AM Objective - Vital Signs/Intake and Output Vital Signs (last 24 hours): Temp Pulse Resp BP Pulse Ox 98.2 F 68 20 124/68 97 12/16/16 07:32 12/16/16 08:15 12/16/16 07:32 12/16/16 09:22 12/16/16 07:32 Intake and Output: 12/16/16 12/16/16 06:59 18:59 Intake Total 1397.75 360 Balance 1397.75 360 - Medications Medications: Current Medications Albuterol Sulfate (Albuterol 0.042% Inhal Tricia (1.25mg/3ml) Ud) 1.25 mg INH RQ6 PRN PRN Reason: Shortness of Breath Last Admin: 12/16/16 13:14 Dose: 1.25 mg Collagenase (Santyl) 0 gm TOP DAILY [facility] Last Admin: 12/16/16 10:14 Dose: 1 applic Enalapril Maleate (Vasotec) 20 mg PO DAILY [facility] Last Admin: 12/16/16 09:22 Dose: Not Given Epoetin Arturo (Procrit) 10,000 unit SC MWF [facility] Last Admin: 12/15/16 09:27 Dose: 10,000 unit Ferrous Sulfate (Feosol) 325 mg PO TID [facility] Last Admin: 12/16/16 13:23 Dose: 325 mg Furosemide (Lasix) 40 mg IVP DAILY [facility] Last Admin: 12/16/16 09:19 Dose: 40 mg Insulin Aspart (Novolog) 0 unit SC ACHS [facility] PRN Reason: Protocol Last Admin: 12/16/16 12:27 Dose: 2 unit Lactic Acid (Lac-Hydrin 12% Lotion (225 G)) 1 gm EXT BID [facility] Last Admin: 12/16/16 09:20 Dose: 1 applic Lorazepam (Ativan) 0.5 mg PO HS PRN PRN Reason: Anxiety Magnesium Oxide (Mag-Ox) 400 mg PO BID [facility] Last Admin: 12/16/16 09:19 Dose: 400 mg Multivitamins (Hexavitamin) 1 tab PO DAILY [facility] Last Admin: 12/16/16 09:19 Dose: 1 tab Nystatin (Nystop Topical Powder) 1 applic TOP BID [facility] Last Admin: 12/16/16 09:20 Dose: 1 applic Pantoprazole Sodium (Protonix Ec Tab) 40 mg PO DAILY [facility] Last Admin: 12/16/16 09:19 Dose: 40 mg Potassium Chloride (K-Dur 20 Meq Er Tab) 20 meq PO DAILY [facility] Tramadol HCl (Ultram) 50 mg PO Q4H PRN PRN Reason: Pain, moderate (4-7) Last Admin: 12/16/16 12:32 Dose: 50 mg - Labs Labs: 12/16/16 08:07 12/16/16 08:07 - Constitutional Appears: No Acute Distress, Chronically Ill - Head Exam Head Exam: NORMAL INSPECTION - Eye Exam Eye Exam: Normal appearance - ENT Exam ENT Exam: Normal Exam - Neck Exam Neck Exam: Normal Inspection - Respiratory Exam Additional comments: Decreased rales in both lungs. - Cardiovascular Exam Cardiovascular Exam: REGULAR RHYTHM - GI/Abdominal Exam GI & Abdominal Exam: Soft, Normal Bowel Sounds - Rectal Exam Rectal Exam: Deferred - Extremities Exam Extremities Exam: Calf Tenderness Additional comments: Decreased edema of the lower extremities. - Back Exam Back Exam: NORMAL INSPECTION - Neurological Exam Neurological Exam: Alert, Awake, Oriented x3 - Psychiatric Exam Psychiatric exam: Anxious - Skin Skin Exam: Dry, Warm Assessment and Plan (1) Pancytopenia Status: Acute (2) Lymphedema of lower extremity Status: Acute (3) Acute on chronic diastolic (congestive) heart failure Assessment & Plan: To continue IV LAsix. Repeat CMP inn AM and a CXR on Sunday. Status: Acute
--- NOTE | 2016-12-16 21:46 | CP.PCM.PN ---
Subjective - Date & Time of Evaluation Date of Evaluation: 12/16/16 Time of Evaluation: 15:30 - Subjective Subjective: Patient complains of right leg pain and right heel pain.. Hct 29 and plalets 19,000. Supplemental K ordered for low potassium.Repeat electrolytes in AM. Patient evaluated by Dr Castro. Objective - Vital Signs/Intake and Output Vital Signs (last 24 hours): Temp Pulse Resp BP Pulse Ox 98.4 F 87 22 148/77 97 12/16/16 15:00 12/16/16 15:00 12/16/16 15:00 12/16/16 15:00 12/16/16 15:00 Intake and Output: 12/16/16 12/17/16 18:59 06:59 Intake Total 360 Balance 360 - Medications Medications: Current Medications Albuterol Sulfate (Albuterol 0.042% Inhal Tricia (1.25mg/3ml) Ud) 1.25 mg INH RQ6 PRN PRN Reason: Shortness of Breath Last Admin: 12/16/16 20:23 Dose: 1.25 mg Collagenase (Santyl) 0 gm TOP DAILY [facility] Last Admin: 12/16/16 10:14 Dose: 1 applic Enalapril Maleate (Vasotec) 20 mg PO DAILY [facility] Last Admin: 12/16/16 09:22 Dose: Not Given Epoetin Arturo (Procrit) 10,000 unit SC MWF [facility] Last Admin: 12/15/16 09:27 Dose: 10,000 unit Ferrous Sulfate (Feosol) 325 mg PO TID [facility] Last Admin: 12/16/16 18:07 Dose: 325 mg Furosemide (Lasix) 40 mg IVP DAILY [facility] Last Admin: 12/16/16 09:19 Dose: 40 mg Insulin Aspart (Novolog) 0 unit SC ACHS [facility] PRN Reason: Protocol Last Admin: 12/16/16 17:10 Dose: Not Given Lactic Acid (Lac-Hydrin 12% Lotion (225 G)) 1 gm EXT BID [facility] Last Admin: 12/16/16 18:09 Dose: 1 applic Lorazepam (Ativan) 0.5 mg PO HS PRN PRN Reason: Anxiety Magnesium Oxide (Mag-Ox) 400 mg PO BID [facility] Last Admin: 12/16/16 18:07 Dose: 400 mg Multivitamins (Hexavitamin) 1 tab PO DAILY [facility] Last Admin: 12/16/16 09:19 Dose: 1 tab Nystatin (Nystop Topical Powder) 1 applic TOP BID [facility] Last Admin: 12/16/16 18:14 Dose: 1 applic Pantoprazole Sodium (Protonix Ec Tab) 40 mg PO DAILY [facility] Last Admin: 12/16/16 09:19 Dose: 40 mg Potassium Chloride (K-Dur 20 Meq Er Tab) 20 meq PO DAILY [facility] Tramadol HCl (Ultram) 50 mg PO Q4H PRN PRN Reason: Pain, moderate (4-7) Last Admin: 12/16/16 12:32 Dose: 50 mg Vitamin B Complex/Vitamin C (Berocca) 1 tab PO DAILY [facility] - Labs Labs: 12/16/16 08:07 12/16/16 08:07 - Constitutional Appears: Chronically Ill - Head Exam Head Exam: NORMOCEPHALIC - Eye Exam Eye Exam: Normal appearance Pupil Exam: NORMAL ACCOMODATION - ENT Exam ENT Exam: Normal Exam - Neck Exam Neck Exam: Normal Inspection - Respiratory Exam Respiratory Exam: Decreased Breath Sounds - Cardiovascular Exam Cardiovascular Exam: REGULAR RHYTHM - GI/Abdominal Exam GI & Abdominal Exam: Hyperactive Bowel Sounds - Rectal Exam Rectal Exam: Deferred - Exam External exam: NORMAL EXTERNAL EXAM - Extremities Exam Extremities Exam: Pedal Edema - Back Exam Back Exam: NORMAL INSPECTION - Neurological Exam Neurological Exam: Alert - Psychiatric Exam Psychiatric exam: Depressed - Skin Skin Exam: Dry Assessment and Plan (1) Anemia Status: Acute (2) Dehydration Status: Acute (3) Myelodysplasia, high grade Status: Acute (4) Thrombocytopenia Status: Acute (5) Osteoarthritis Status: Acute (6) Heel ulcer Status: Acute
[2016-12-17] MEDS: Albuterol 0.042% Inhal Sol (1.25 mg/3 mL) UD INH PRN ×2 (08:05→20:08)
[2016-12-17 08:36] LABS: BASO # 0.1 K/uL (0.0-0.2); BASO % 0.5 % (0.0-2.0); EOS % 0.1 % (0.0-4.0); HEMATOCRIT 29.1 % (34.0-47.0); LYMPH # 2.2 K/uL (1.0-4.3); LYMPH % 18.5 % (20.0-40.0); MEAN CELL VOLUME 98.3 fL (81.0-99.0); MEAN CORPUSCULAR HEMOGLOBIN 29.8 pg (27.0-31.0); MEAN CORPUSCULAR HGB CONC 30.3 g/dL (33.0-37.0); MEAN PLATELET VOLUME 7.2 fL (7.2-11.7); MONO # 3.7 K/uL (0.0-0.8); MONO % 31.1 % (0.0-10.0); NRBC % 4.1 % (0.0-2.0); RED CELL DISTRIBUTION WIDTH 26.7 % (11.5-14.5); WHITE BLOOD COUNT 11.8 K/uL (4.8-10.8)
[2016-12-17] MEDS: (Novolog) Insulin Aspart, Recombinant 100 u/ml 10 ml vial SC SCH ×4 (08:40→22:04)
[2016-12-17 08:42] LABS: PLATELET COUNT 16 K/uL (130-400)
[2016-12-17 08:55] LABS: ALB/GLOB RATIO 0.5 (1.0-2.1); ALKALINE PHOSPHATASE 164 U/L (38-126); ALT/SGPT 18 U/L (9-52); AST/SGOT 16 U/L (14-36); BILIRUBIN,TOTAL 0.7 mg/dL (0.2-1.3); BLOOD UREA NITROGEN 18 mg/dL (7-17); CALCIUM 8.7 mg/dl (8.6-10.4); CARBON DIOXIDE 30 mmol/L (22-30); CHLORIDE 104 mmol/L (98-107); GFR AFRICAN-AMERICAN > 60; GLUCOSE,RANDOM 115 mg/dL (65-105); POTASSIUM 3.3 mmol/L (3.6-5.2); SODIUM 143 mmol/L (132-148); TOTAL PROTEIN 6.7 g/dL (6.3-8.3)
--- NOTE | 2016-12-17 09:50 | CP.PCM.PN ---
Subjective - Date & Time of Evaluation Date of Evaluation: 12/17/16 Time of Evaluation: 11:30 - Subjective Subjective: 76 year old female seen at bedside for right chronic heel ulcer. Patient states that her right foot is very tender during dressing changes and direct manipulation but fine otherwise. She currently denies any v/f/c/sob/cp Objective - Vital Signs/Intake and Output Vital Signs (last 24 hours): Temp Pulse Resp BP Pulse Ox 97.9 F 80 20 122/72 97 12/17/16 08:00 12/17/16 08:00 12/17/16 08:00 12/17/16 08:00 12/17/16 08:00 Intake and Output: 12/17/16 12/17/16 06:59 18:59 Intake Total 250 Balance 250 - Medications Medications: Current Medications Albuterol Sulfate (Albuterol 0.042% Inhal Tricia (1.25mg/3ml) Ud) 1.25 mg INH RQ6 PRN PRN Reason: Shortness of Breath Last Admin: 12/16/16 20:23 Dose: 1.25 mg Collagenase (Santyl) 0 gm TOP DAILY [facility] Last Admin: 12/16/16 10:14 Dose: 1 applic Enalapril Maleate (Vasotec) 20 mg PO DAILY [facility] Last Admin: 12/16/16 09:22 Dose: Not Given Epoetin Arturo (Procrit) 10,000 unit SC MWF [facility] Last Admin: 12/15/16 09:27 Dose: 10,000 unit Ferrous Sulfate (Feosol) 325 mg PO TID [facility] Last Admin: 12/16/16 18:07 Dose: 325 mg Furosemide (Lasix) 40 mg IVP DAILY [facility] Last Admin: 12/16/16 09:19 Dose: 40 mg Insulin Aspart (Novolog) 0 unit SC ACHS [facility] PRN Reason: Protocol Last Admin: 12/17/16 08:40 Dose: Not Given Lactic Acid (Lac-Hydrin 12% Lotion (225 G)) 1 gm EXT BID [facility] Last Admin: 12/16/16 18:09 Dose: 1 applic Lorazepam (Ativan) 0.5 mg PO HS PRN PRN Reason: Anxiety Magnesium Oxide (Mag-Ox) 400 mg PO BID [facility] Last Admin: 12/16/16 18:07 Dose: 400 mg Multivitamins (Hexavitamin) 1 tab PO DAILY [facility] Last Admin: 12/16/16 09:19 Dose: 1 tab Nystatin (Nystop Topical Powder) 1 applic TOP BID [facility] Last Admin: 12/16/16 18:14 Dose: 1 applic Pantoprazole Sodium (Protonix Ec Tab) 40 mg PO DAILY [facility] Last Admin: 12/16/16 09:19 Dose: 40 mg Potassium Chloride (K-Dur 20 Meq Er Tab) 20 meq PO DAILY [facility] Tramadol HCl (Ultram) 50 mg PO Q4H PRN PRN Reason: Pain, moderate (4-7) Last Admin: 12/16/16 12:32 Dose: 50 mg Vitamin B Complex/Vitamin C (Berocca) 1 tab PO DAILY [facility] - Labs Labs: 12/17/16 08:20 12/17/16 08:20 - Constitutional Appears: Well, Non-toxic, No Acute Distress - Extremities Exam Additional comments: dressing c/d/ to b/l legs right LE focused exam Vasc: DP and PT pulses non-palpable, CFT < 3 sec, temp unremarkable. Neuro: Protective sensation diminished, light touch sensation intact. Derm: Open ulceration noted to the plantar right heel measuring approximately 2 cm by 2 cm, no drainage, no puruelnce, no probe to bone, no malodor noted. Ortho: Tenderness on palpation of right foot plantar ulceration Decreased ROM to LE secondary to edema with weakness. - Neurological Exam Neurological Exam: Alert, Awake, Oriented x3 - Psychiatric Exam Psychiatric exam: Normal Affect, Normal Mood Assessment and Plan - Assessment and Plan (Free Text) Assessment: 76 year old female with right plantar heel ulceration Plan: Patient examined and evaluated. Chart, labs, & vitals reviewed;afebrile, WBC 11.8. Severe thrombocytopenia noted, hypokaemia, and anemia. Primary team currently attempting medical optimization. Discussed plan with attending, Dr. Thompson, who agrees. Right heel dressed with santyl and DSD Multipodus boots applied to bilateral lower extremities for use while in bed to off-load heels. wound culture results- pending. podiatry will continue to follow patient while in house
[2016-12-17 10:21] LABS: NEUTROPHIL 59 % (50-75); NUCLEATED RED BLOOD CELL 3 % (0-0); TOTAL CELLS COUNTED 100
[2016-12-17 10:23] LABS: LARGE PLATELETS PRESENT
[2016-12-17 10:24] LABS: SPHEROCYTES SLIGHT
[2016-12-17] MEDS ORDERED: Potassium Chloride 20 mEq ER Tab PO STA (11:55)
[2016-12-17] MEDS: Magnesium Oxide 400 mg Tab UD PO SCH ×2 (11:57→18:01)
[2016-12-17] MEDS: Potassium Chloride 20 mEq ER Tab PO SCH (11:57)
[2016-12-17] MEDS: Vitamin B Complex/Vitamin C Tab PO SCH (11:57)
[2016-12-17] MEDS: Multiple Vitamins Tab PO SCH (11:58)
[2016-12-17] MEDS: Pantoprazole 40 mg EC Tab PO SCH (11:58)
[2016-12-17] MEDS: Ammonium Lactate 12% Lotion (225 g) EXT SCH ×2 (11:59→18:00)
[2016-12-17] MEDS: Collagenase 250 Units/gm Ointment(30 gm) TOP SCH (12:02)
[2016-12-18] MEDS: Albuterol 0.042% Inhal Sol (1.25 mg/3 mL) UD INH PRN ×3 (08:02→20:37)
[2016-12-18 08:20] LABS: BASO # 0.1 K/uL (0.0-0.2); BASO % 0.6 % (0.0-2.0); EOS % 0.1 % (0.0-4.0); HEMATOCRIT 29.3 % (34.0-47.0); LYMPH # 1.6 K/uL (1.0-4.3); LYMPH % 14.8 % (20.0-40.0); MEAN CELL VOLUME 97.4 fL (81.0-99.0); MEAN CORPUSCULAR HEMOGLOBIN 29.9 pg (27.0-31.0); MEAN CORPUSCULAR HGB CONC 30.7 g/dL (33.0-37.0); MEAN PLATELET VOLUME 7.5 fL (7.2-11.7); MONO # 4.3 K/uL (0.0-0.8); NRBC % 3.4 % (0.0-2.0); RED CELL DISTRIBUTION WIDTH 26.2 % (11.5-14.5)
[2016-12-18 08:33] LABS: CHLORIDE 102 mmol/L (98-107)
[2016-12-18 08:34] LABS: POTASSIUM 3.8 mmol/L (3.6-5.2); SODIUM 141 mmol/L (132-148)
[2016-12-18 08:36] LABS: ALB/GLOB RATIO 0.4 (1.0-2.1); AST/SGOT 16 U/L (14-36); BILIRUBIN,TOTAL 0.9 mg/dL (0.2-1.3); BLOOD UREA NITROGEN 19 mg/dL (7-17); CARBON DIOXIDE 34 mmol/L (22-30); GFR AFRICAN-AMERICAN > 60; PLATELET COUNT 16 K/uL (130-400)
[2016-12-18 08:37] LABS: ALKALINE PHOSPHATASE 160 U/L (38-126); ALT/SGPT 20 U/L (9-52); CALCIUM 8.9 mg/dl (8.6-10.4); GLUCOSE,RANDOM 136 mg/dL (65-105)
[2016-12-18] MEDS: (Novolog) Insulin Aspart, Recombinant 100 u/ml 10 ml vial SC SCH ×5 (08:50→21:55)
[2016-12-18 09:29] LABS: NEUTROPHIL 68 % (50-75); NUCLEATED RED BLOOD CELL 11 % (0-0); TOTAL CELLS COUNTED 100
[2016-12-18] MEDS: Vitamin B Complex/Vitamin C Tab PO SCH (10:02)
[2016-12-18] MEDS: Potassium Chloride 20 mEq ER Tab PO SCH (10:02)
[2016-12-18] MEDS: Multiple Vitamins Tab PO SCH (10:02)
[2016-12-18] MEDS: Pantoprazole 40 mg EC Tab PO SCH (10:02)
[2016-12-18] MEDS: Magnesium Oxide 400 mg Tab UD PO SCH ×2 (10:03→18:16)
[2016-12-18] MEDS: EPOETIN ALFA 10,000 UNIT/ML ML SC SCH (10:19)
[2016-12-18] MEDS: Collagenase 250 Units/gm Ointment(30 gm) TOP SCH (10:20)
[2016-12-18] MEDS: Ammonium Lactate 12% Lotion (225 g) EXT SCH ×2 (10:22→18:18)
--- NOTE | 2016-12-18 12:58 | RAD ---
HISTORY: Follow up CHF COMPARISON: Comparison made with prior study dated FINDINGS: LUNGS: Re- demonstrated are diffuse bilateral alveolar-type infiltrates the could represent pneumonia or pulmonary edema/ CHF. Clinic correlation recommended. No change right IJ MediPort with tip in the SVC. In situ IVC filter. PLEURA: No significant pleural effusion identified, no pneumothorax apparent. CARDIOVASCULAR: 12/14/2016 Normal. OSSEOUS STRUCTURES: No significant abnormalities. VISUALIZED UPPER ABDOMEN: Normal. OTHER FINDINGS: None. IMPRESSION: Re- demonstrated are diffuse bilateral alveolar-type infiltrates the could represent pneumonia or pulmonary edema/ CHF. Clinic correlation recommended.
--- NOTE | 2016-12-18 15:46 | CP.PCM.PN ---
Subjective - Date & Time of Evaluation Date of Evaluation: 12/18/16 Time of Evaluation: 15:46 - Subjective Subjective: 76 year old female seen at bedside for right chronic heel ulcer. Patient states that her right foot is very tender during dressing changes and direct manipulation. She has her offloading boots above her bed but not on her feet. She currently denies any v/f/c/sob/cp Objective - Vital Signs/Intake and Output Vital Signs (last 24 hours): Temp Pulse Resp BP Pulse Ox 98 F 93 H 20 120/70 95 12/18/16 09:26 12/18/16 09:26 12/18/16 09:26 12/18/16 10:03 12/18/16 09:26 Intake and Output: 12/18/16 12/18/16 06:59 18:59 Intake Total 250 500 Balance 250 500 - Medications Medications: Current Medications Albuterol Sulfate (Albuterol 0.042% Inhal Tricia (1.25mg/3ml) Ud) 1.25 mg INH RQ6 PRN PRN Reason: Shortness of Breath Last Admin: 12/18/16 13:33 Dose: 1.25 mg Collagenase (Santyl) 0 gm TOP DAILY [facility] Last Admin: 12/18/16 10:20 Dose: 1 applic Enalapril Maleate (Vasotec) 20 mg PO DAILY [facility] Last Admin: 12/18/16 10:02 Dose: 20 mg Epoetin Arturo (Procrit) 10,000 unit SC MWF [facility] Last Admin: 12/18/16 10:19 Dose: 10,000 unit Ferrous Sulfate (Feosol) 325 mg PO TID [facility] Last Admin: 12/18/16 13:38 Dose: 325 mg Furosemide (Lasix) 40 mg IVP DAILY [facility] Last Admin: 12/18/16 10:03 Dose: 40 mg Insulin Aspart (Novolog) 0 unit SC ACHS [facility] PRN Reason: Protocol Last Admin: 12/18/16 12:21 Dose: 1 unit Lactic Acid (Lac-Hydrin 12% Lotion (225 G)) 1 gm EXT BID [facility] Last Admin: 12/18/16 10:22 Dose: 1 applic Lorazepam (Ativan) 0.5 mg PO HS PRN PRN Reason: Anxiety Magnesium Oxide (Mag-Ox) 400 mg PO BID [facility] Last Admin: 12/18/16 10:03 Dose: 400 mg Multivitamins (Hexavitamin) 1 tab PO DAILY [facility] Last Admin: 12/18/16 10:02 Dose: 1 tab Nystatin (Nystop Topical Powder) 1 applic TOP BID [facility] Last Admin: 12/18/16 10:19 Dose: 1 applic Pantoprazole Sodium (Protonix Ec Tab) 40 mg PO DAILY [facility] Last Admin: 12/18/16 10:02 Dose: 40 mg Potassium Chloride (K-Dur 20 Meq Er Tab) 20 meq PO DAILY [facility] Last Admin: 12/18/16 10:02 Dose: 20 meq Tramadol HCl (Ultram) 50 mg PO Q4H PRN PRN Reason: Pain, moderate (4-7) Last Admin: 12/16/16 12:32 Dose: 50 mg Vitamin B Complex/Vitamin C (Berocca) 1 tab PO DAILY [facility] Last Admin: 12/18/16 10:02 Dose: 1 tab - Labs Labs: 12/18/16 08:04 12/18/16 08:04 - Constitutional Appears: Non-toxic, No Acute Distress - Extremities Exam Additional comments: right LE focused exam Vasc: DP and PT pulses non-palpable, CFT < 3 sec, temp unremarkable. Neuro: Protective sensation diminished, light touch sensation intact. Derm: Open ulceration noted to the plantar right heel measuring approximately 2 cm by 2 cm, no drainage, no purulence, no probe to bone, no malodor noted. Ortho: Tenderness on palpation of right foot plantar ulceration Decreased ROM to LE secondary to edema with weakness. - Neurological Exam Neurological Exam: Alert, Awake, Oriented x3 - Psychiatric Exam Psychiatric exam: Normal Affect, Normal Mood Assessment and Plan - Assessment and Plan (Free Text) Assessment: 76 year old female with right plantar heel ulceration Plan: Patient examined and evaluated. Chart, labs, & vitals reviewed;afebrile, WBC 11 Discussed with attending, Dr. Thompson Right heel dressed with santyl and DSD Multipodus boots applied to bilateral lower extremities for use while in bed to off-load heels. wound culture results-gram negative rods podiatry will continue to follow patient while in house
--- NOTE | 2016-12-18 21:58 | CP.PCM.PN ---
Subjective - Date & Time of Evaluation Date of Evaluation: 12/18/16 Time of Evaluation: 16:45 - Subjective Subjective: Patient not feeling well. Claims severe fatigue and shortness of breath on exertion. Platlets 16,000 today and platlet transfusion ordered. Left heel blacking wheel tender and painful. Objective - Vital Signs/Intake and Output Vital Signs (last 24 hours): Temp Pulse Resp BP Pulse Ox 98.1 F 96 H 20 104/64 96 12/18/16 17:19 12/18/16 17:19 12/18/16 17:19 12/18/16 17:19 12/18/16 15:00 Intake and Output: 12/18/16 12/19/16 18:59 06:59 Intake Total 757 Balance 757 - Medications Medications: Current Medications Albuterol Sulfate (Albuterol 0.042% Inhal Tricia (1.25mg/3ml) Ud) 1.25 mg INH RQ6 PRN PRN Reason: Shortness of Breath Last Admin: 12/18/16 20:37 Dose: 1.25 mg Collagenase (Santyl) 0 gm TOP DAILY [facility] Last Admin: 12/18/16 10:20 Dose: 1 applic Enalapril Maleate (Vasotec) 20 mg PO DAILY [facility] Last Admin: 12/18/16 10:02 Dose: 20 mg Epoetin Arturo (Procrit) 10,000 unit SC MWF [facility] Last Admin: 12/18/16 10:19 Dose: 10,000 unit Ferrous Sulfate (Feosol) 325 mg PO TID [facility] Last Admin: 12/18/16 18:15 Dose: 325 mg Furosemide (Lasix) 40 mg IVP DAILY [facility] Last Admin: 12/18/16 10:03 Dose: 40 mg Insulin Aspart (Novolog) 0 unit SC ACHS [facility] PRN Reason: Protocol Last Admin: 12/18/16 16:31 Dose: Not Given Lactic Acid (Lac-Hydrin 12% Lotion (225 G)) 1 gm EXT BID [facility] Last Admin: 12/18/16 18:18 Dose: 1 applic Lorazepam (Ativan) 0.5 mg PO HS PRN PRN Reason: Anxiety Magnesium Oxide (Mag-Ox) 400 mg PO BID [facility] Last Admin: 12/18/16 18:16 Dose: 400 mg Multivitamins (Hexavitamin) 1 tab PO DAILY [facility] Last Admin: 12/18/16 10:02 Dose: 1 tab Nystatin (Nystop Topical Powder) 1 applic TOP BID [facility] Last Admin: 12/18/16 18:19 Dose: 1 applic Pantoprazole Sodium (Protonix Ec Tab) 40 mg PO DAILY [facility] Last Admin: 12/18/16 10:02 Dose: 40 mg Potassium Chloride (K-Dur 20 Meq Er Tab) 20 meq PO DAILY [facility] Last Admin: 12/18/16 10:02 Dose: 20 meq Tramadol HCl (Ultram) 50 mg PO Q4H PRN PRN Reason: Pain, moderate (4-7) Last Admin: 12/16/16 12:32 Dose: 50 mg Vitamin B Complex/Vitamin C (Berocca) 1 tab PO DAILY [facility] Last Admin: 12/18/16 10:02 Dose: 1 tab - Labs Labs: 12/18/16 08:04 12/18/16 08:04 - Constitutional Appears: Chronically Ill - Head Exam Head Exam: NORMOCEPHALIC - Eye Exam Eye Exam: Normal appearance Pupil Exam: NORMAL ACCOMODATION - ENT Exam ENT Exam: Normal Oropharynx - Neck Exam Neck Exam: Normal Inspection - Respiratory Exam Respiratory Exam: Decreased Breath Sounds - Cardiovascular Exam Cardiovascular Exam: REGULAR RHYTHM - GI/Abdominal Exam GI & Abdominal Exam: Hyperactive Bowel Sounds - Rectal Exam Rectal Exam: Deferred - Exam External exam: NORMAL EXTERNAL EXAM - Extremities Exam Extremities Exam: Pedal Edema - Back Exam Back Exam: NORMAL INSPECTION - Neurological Exam Neurological Exam: Oriented x3 - Psychiatric Exam Psychiatric exam: Depressed - Skin Skin Exam: Dry Assessment and Plan (1) Anemia Status: Acute (2) Dehydration Status: Acute (3) Myelodysplasia, high grade Status: Acute (4) Thrombocytopenia Status: Acute (5) Osteoarthritis Status: Acute (6) Heel ulcer Status: Acute
--- NOTE | 2016-12-18 23:07 | CP.PCM.PN ---
Subjective - Date & Time of Evaluation Date of Evaluation: 12/18/16 Time of Evaluation: 12:00 - Subjective Subjective: Patient still SOB on exertion, CXR: no significant in bilateral infiltrates. Afebrile. Objective - Vital Signs/Intake and Output Vital Signs (last 24 hours): Temp Pulse Resp BP Pulse Ox 98.1 F 96 H 20 104/64 96 12/18/16 17:19 12/18/16 17:19 12/18/16 17:19 12/18/16 17:19 12/18/16 15:00 Intake and Output: 12/18/16 12/19/16 18:59 06:59 Intake Total 757 Balance 757 - Medications Medications: Current Medications Albuterol Sulfate (Albuterol 0.042% Inhal Tricia (1.25mg/3ml) Ud) 1.25 mg INH RQ6 PRN PRN Reason: Shortness of Breath Last Admin: 12/18/16 20:37 Dose: 1.25 mg Collagenase (Santyl) 0 gm TOP DAILY [facility] Last Admin: 12/18/16 10:20 Dose: 1 applic Enalapril Maleate (Vasotec) 20 mg PO DAILY [facility] Last Admin: 12/18/16 10:02 Dose: 20 mg Epoetin Arturo (Procrit) 10,000 unit SC MWF [facility] Last Admin: 12/18/16 10:19 Dose: 10,000 unit Ferrous Sulfate (Feosol) 325 mg PO TID [facility] Last Admin: 12/18/16 18:15 Dose: 325 mg Furosemide (Lasix) 40 mg IVP DAILY [facility] Last Admin: 12/18/16 10:03 Dose: 40 mg Insulin Aspart (Novolog) 0 unit SC ACHS [facility] PRN Reason: Protocol Last Admin: 12/18/16 21:55 Dose: Not Given Lactic Acid (Lac-Hydrin 12% Lotion (225 G)) 1 gm EXT BID [facility] Last Admin: 12/18/16 18:18 Dose: 1 applic Lorazepam (Ativan) 0.5 mg PO HS PRN PRN Reason: Anxiety Magnesium Oxide (Mag-Ox) 400 mg PO BID [facility] Last Admin: 12/18/16 18:16 Dose: 400 mg Multivitamins (Hexavitamin) 1 tab PO DAILY [facility] Last Admin: 12/18/16 10:02 Dose: 1 tab Nystatin (Nystop Topical Powder) 1 applic TOP BID [facility] Last Admin: 12/18/16 18:19 Dose: 1 applic Pantoprazole Sodium (Protonix Ec Tab) 40 mg PO DAILY [facility] Last Admin: 12/18/16 10:02 Dose: 40 mg Potassium Chloride (K-Dur 20 Meq Er Tab) 20 meq PO DAILY [facility] Last Admin: 12/18/16 10:02 Dose: 20 meq Tramadol HCl (Ultram) 50 mg PO Q4H PRN PRN Reason: Pain, moderate (4-7) Last Admin: 12/16/16 12:32 Dose: 50 mg Vitamin B Complex/Vitamin C (Berocca) 1 tab PO DAILY [facility] Last Admin: 12/18/16 10:02 Dose: 1 tab - Labs Labs: 12/18/16 08:04 12/18/16 08:04 - Constitutional Appears: Non-toxic, No Acute Distress, Chronically Ill - Head Exam Head Exam: NORMAL INSPECTION - Eye Exam Eye Exam: Normal appearance - ENT Exam ENT Exam: Normal Exam - Neck Exam Neck Exam: Normal Inspection - Respiratory Exam Additional comments: Decreased bilateral rales. - Cardiovascular Exam Cardiovascular Exam: REGULAR RHYTHM - GI/Abdominal Exam GI & Abdominal Exam: Soft, Normal Bowel Sounds - Rectal Exam Rectal Exam: Deferred - Extremities Exam Additional comments: Decreased bilateral pedal edema. - Back Exam Back Exam: NORMAL INSPECTION - Neurological Exam Neurological Exam: Alert, Awake, Oriented x3 - Psychiatric Exam Psychiatric exam: Anxious - Skin Skin Exam: Dry, Intact, Normal Color Assessment and Plan (1) Pancytopenia Status: Acute (2) Lymphedema of lower extremity Status: Acute (3) Acute on chronic diastolic (congestive) heart failure Assessment & Plan: To continue IV Lasix. Status: Acute
[2016-12-19 07:22] LABS: CHLORIDE 106 mmol/L (98-107); SODIUM 140 mmol/L (132-148)
[2016-12-19 07:23] LABS: POTASSIUM 3.2 mmol/L (3.6-5.2)
[2016-12-19 07:25] LABS: ALB/GLOB RATIO 0.4 (1.0-2.1); ALKALINE PHOSPHATASE 122 U/L (38-126); AST/SGOT 16 U/L (14-36); BILIRUBIN,TOTAL 0.9 mg/dL (0.2-1.3); BLOOD UREA NITROGEN 21 mg/dL (7-17); CARBON DIOXIDE 29 mmol/L (22-30); GFR AFRICAN-AMERICAN > 60; TOTAL PROTEIN 6.1 g/dL (6.3-8.3)
[2016-12-19 07:26] LABS: ALT/SGPT 28 U/L (9-52); CALCIUM 7.9 mg/dl (8.6-10.4)
[2016-12-19 07:27] LABS: GLUCOSE,RANDOM 130 mg/dL (65-105)
[2016-12-19 07:31] VITALS: RESP 20
[2016-12-19] MEDS: (Novolog) Insulin Aspart, Recombinant 100 u/ml 10 ml vial SC SCH ×4 (08:21→21:20)
[2016-12-19] MEDS: Multiple Vitamins Tab PO SCH (09:31)
[2016-12-19] MEDS: Vitamin B Complex/Vitamin C Tab PO SCH (09:32)
[2016-12-19] MEDS: Pantoprazole 40 mg EC Tab PO SCH (09:32)
[2016-12-19] MEDS: Magnesium Oxide 400 mg Tab UD PO SCH ×2 (09:32→17:50)
[2016-12-19] MEDS: Potassium Chloride 20 mEq ER Tab PO SCH (09:32)
[2016-12-19] MEDS: Collagenase 250 Units/gm Ointment(30 gm) TOP SCH (09:33)
[2016-12-19] MEDS: Ammonium Lactate 12% Lotion (225 g) EXT SCH ×2 (09:34→18:00)
--- NOTE | 2016-12-19 09:36 | CP.PCM.PN ---
<Collins Thompson - Last Filed: 12/19/16 09:33> Subjective - Date & Time of Evaluation Date of Evaluation: 12/19/16 Time of Evaluation: 09:10 - Subjective Subjective: pt seen for ulcer chronic right heel chronic in nature . Objective - Vital Signs/Intake and Output Vital Signs (last 24 hours): Temp Pulse Resp BP Pulse Ox 98 F 80 20 140/76 97 12/19/16 07:27 12/19/16 07:27 12/19/16 07:27 12/19/16 07:27 12/19/16 07:27 Intake and Output: 12/19/16 12/19/16 06:59 18:59 Intake Total 250 Balance 250 - Medications Medications: Current Medications Collagenase (Santyl) 0 gm TOP DAILY [facility] Last Admin: 12/18/16 10:20 Dose: 1 applic Enalapril Maleate (Vasotec) 20 mg PO DAILY [facility] Last Admin: 12/18/16 10:02 Dose: 20 mg Epoetin Arturo (Procrit) 10,000 unit SC MWF [facility] Last Admin: 12/18/16 10:19 Dose: 10,000 unit Ferrous Sulfate (Feosol) 325 mg PO TID [facility] Last Admin: 12/18/16 18:15 Dose: 325 mg Furosemide (Lasix) 40 mg IVP DAILY [facility] Last Admin: 12/18/16 10:03 Dose: 40 mg Insulin Aspart (Novolog) 0 unit SC ACHS [facility] PRN Reason: Protocol Last Admin: 12/19/16 08:21 Dose: 1 unit Lactic Acid (Lac-Hydrin 12% Lotion (225 G)) 1 gm EXT BID [facility] Last Admin: 12/18/16 18:18 Dose: 1 applic Lorazepam (Ativan) 0.5 mg PO HS PRN PRN Reason: Anxiety Magnesium Oxide (Mag-Ox) 400 mg PO BID [facility] Last Admin: 12/18/16 18:16 Dose: 400 mg Multivitamins (Hexavitamin) 1 tab PO DAILY [facility] Last Admin: 12/18/16 10:02 Dose: 1 tab Nystatin (Nystop Topical Powder) 1 applic TOP BID [facility] Last Admin: 12/18/16 18:19 Dose: 1 applic Pantoprazole Sodium (Protonix Ec Tab) 40 mg PO DAILY [facility] Last Admin: 12/18/16 10:02 Dose: 40 mg Potassium Chloride (K-Dur 20 Meq Er Tab) 20 meq PO DAILY [facility] Last Admin: 12/18/16 10:02 Dose: 20 meq Tramadol HCl (Ultram) 50 mg PO Q4H PRN PRN Reason: Pain, moderate (4-7) Last Admin: 12/16/16 12:32 Dose: 50 mg Vitamin B Complex/Vitamin C (Berocca) 1 tab PO DAILY [facility] Last Admin: 12/18/16 10:02 Dose: 1 tab - Labs Labs: 12/18/16 08:04 12/19/16 06:52 <EllieSophia - Last Filed: 12/19/16 13:21> Subjective - Subjective Subjective: 76 year old female seen at bedside this morning with attending, Dr. Thompson for right chronic heel ulcer. Patient states that her right foot is very tender during dressing changes and direct manipulation. She has her offloading boots on her right foot She currently denies any v/f/c/sob/cp Objective - Vital Signs/Intake and Output Vital Signs (last 24 hours): Temp Pulse Resp BP Pulse Ox 98 F 80 20 140/76 97 12/19/16 07:27 12/19/16 07:27 12/19/16 07:27 12/19/16 09:32 12/19/16 07:27 Intake and Output: 12/19/16 12/19/16 06:59 18:59 Intake Total 250 Balance 250 - Medications Medications: Current Medications Albuterol Sulfate (Albuterol 0.042% Inhal Tricia (1.25mg/3ml) Ud) 1.25 mg INH RQ6 PRN PRN Reason: Shortness of Breath Collagenase (Santyl) 0 gm TOP DAILY [facility] Last Admin: 12/19/16 09:33 Dose: 1 applic Enalapril Maleate (Vasotec) 20 mg PO DAILY [facility] Last Admin: 12/19/16 09:31 Dose: 20 mg Epoetin Arturo (Procrit) 10,000 unit SC MWF [facility] Last Admin: 12/18/16 10:19 Dose: 10,000 unit Ferrous Sulfate (Feosol) 325 mg PO TID [facility] Last Admin: 12/19/16 13:16 Dose: 325 mg Furosemide (Lasix) 40 mg IVP DAILY [facility] Last Admin: 12/19/16 09:32 Dose: 40 mg Cefepime HCl (Maxipime Iv 1 Gm Premix) 1 gm in 50 mls @ 100 mls/hr IVPB Q12H [facility] Last Admin: 12/19/16 13:16 Dose: 100 mls/hr Insulin Aspart (Novolog) 0 unit SC ACHS [facility] PRN Reason: Protocol Last Admin: 12/19/16 12:07 Dose: 1 unit Lactic Acid (Lac-Hydrin 12% Lotion (225 G)) 1 gm EXT BID [facility] Last Admin: 12/19/16 09:34 Dose: 1 applic Lorazepam (Ativan) 0.5 mg PO HS PRN PRN Reason: Anxiety Magnesium Oxide (Mag-Ox) 400 mg PO BID [facility] Last Admin: 12/19/16 09:32 Dose: 400 mg Multivitamins (Hexavitamin) 1 tab PO DAILY [facility] Last Admin: 12/19/16 09:31 Dose: 1 tab Nystatin (Nystop Topical Powder) 1 applic TOP BID [facility] Last Admin: 12/19/16 09:34 Dose: 1 applic Pantoprazole Sodium (Protonix Ec Tab) 40 mg PO DAILY [facility] Last Admin: 12/19/16 09:32 Dose: 40 mg Potassium Chloride (K-Dur 20 Meq Er Tab) 20 meq PO DAILY [facility] Last Admin: 12/19/16 09:32 Dose: 20 meq Tramadol HCl (Ultram) 50 mg PO Q4H PRN PRN Reason: Pain, moderate (4-7) Last Admin: 12/16/16 12:32 Dose: 50 mg Vitamin B Complex/Vitamin C (Berocca) 1 tab PO DAILY [facility] Last Admin: 12/19/16 09:32 Dose: 1 tab - Labs Labs: 12/19/16 11:08 12/19/16 06:52 - Constitutional Appears: Non-toxic, No Acute Distress - Extremities Exam Additional comments: Right LE focused exam Vasc: DP and PT pulses non-palpable, CFT < 3 sec, temp unremarkable. Neuro: Protective sensation diminished, light touch sensation intact. Derm: Open ulceration noted to the plantar right heel measuring approximately 2 cm by 2 cm, with a fibrogranular base, no drainage, no purulence, no probe to bone, no malodor noted. Ortho: Tenderness on palpation of right foot plantar ulceration, Decreased ROM to LE secondary to edema with weakness. - Neurological Exam Neurological Exam: Alert, Awake, Oriented x3 - Psychiatric Exam Psychiatric exam: Normal Affect, Normal Mood Assessment and Plan - Assessment and Plan (Free Text) Assessment: 76 year old female with right chronic plantar heel ulceration Plan: Patient examined and evaluated. Chart, labs, & vitals reviewed;afebrile, WBC 13 Discussed with attending, Dr. Thompson Right heel dressed with santyl and DSD Multipodus boots applied to bilateral lower extremities for use while in bed to off-load heels. wound culture results-pseudomonas podiatry will continue to follow patient while in house
[2016-12-19 11:18] LABS: BASO # 0.1 K/uL (0.0-0.2); BASO % 0.8 % (0.0-2.0); EOS % 0.2 % (0.0-4.0); HEMATOCRIT 33.9 % (34.0-47.0); LYMPH # 2.2 K/uL (1.0-4.3); MEAN CORPUSCULAR HEMOGLOBIN 30.7 pg (27.0-31.0); MEAN CORPUSCULAR HGB CONC 31.3 g/dL (33.0-37.0); MEAN PLATELET VOLUME 9.3 fL (7.2-11.7); MONO # 3.7 K/uL (0.0-0.8); MONO % 28.7 % (0.0-10.0); NRBC % 3.4 % (0.0-2.0); RED CELL DISTRIBUTION WIDTH 25.2 % (11.5-14.5)
[2016-12-19 11:19] LABS: PLATELET COUNT 80 K/uL (130-400)
[2016-12-19 12:04] LABS: NEUTROPHIL 72 % (50-75); NUCLEATED RED BLOOD CELL 3 % (0-0); TOTAL CELLS COUNTED 100
--- NOTE | 2016-12-19 12:08 | CP.PCM.CON ---
History of Present Illness - History of Present Illness History of Present Illness: evemts noted discussed with dr holly r/o [place] Review of Systems - Review of Systems All systems: reviewed and no additional remarkable complaints except - Constitutional Constitutional: As Per HPI - EENT Eyes: absent: As Per HPI, Blind Spots, Blurred Vision, Change in Vision, Decreased Night Vision, Diplopia, Discharge, Dry Eye, Exophthalmos, Floaters, Irritation, Itchy Eyes, Loss of Peripheral Vision, Pain, Photophobia, Requires Corrective Lenses, Sees Flashes, Spots in Vision, Tunnel Vision, Other Visual Disturbances, Loss of Vision, Other Ears: absent: As Per HPI, Decreased Hearing, Ear Discharge, Ear Pain, Tinnitus, Abnormal Hearing, Disequilibrium, Dizziness, Other Nose/Mouth/Throat: absent: As Per HPI, Epistaxis, Nasal Congestion, Nasal Discharge, Nasal Obstruction, Nasal Trauma, Nose Pain, Post Nasal Drip, Sinus Pain, Sinus Pressure, Bleeding Gums, Change in Voice, Dental Pain, Dry Mouth, Dysphagia, Halitosis, Hoarsness, Lip Swelling, Mouth Lesions, Mouth Pain, Odynophagia, Sore Throat, Throat Swelling, Tongue Swelling, Facial Pain, Neck Pain, Neck Mass, Other - Breasts Breasts: absent: As Per HPI, Change in Shape, Mass, Pain, Nipple Discharge, Nipple Inversion, Skin Changes, Swelling, Other - Cardiovascular Cardiovascular: absent: As Per HPI, Acrocyanosis, Chest Pain, Chest Pain at Rest , Chest Pain with Activity, Claudication, Diaphoresis, Dyspnea, Dyspnea on Exertion, Edema, Irregular Heart Rhythm, Pain Radiating to Arm/Neck/Jaw, Leg Edema, Leg Ulcers, Lightheadedness, Orthopnea, Palpitations, Paroxysmal Nocturnal Dyspnea, Pedal Edema, Radiating Pain, Rapid Heart Rate, Slow Heart Rate, Syncope, Other - Respiratory Respiratory: absent: As Per HPI, Cough, Dyspnea, Hemoptysis, Dyspnea on Exertion , Wheezing, Snoring, Stridor, Pain on Inspiration, Chest Congestion, Excessive Mucous Production, Change in Mucous Color, Pain with Coughing, Other - Gastrointestinal Gastrointestinal: absent: As Per HPI, Abdominal Pain, Belching, Bloating, Change in Bowel Habits, Change in Stool Character, Coffee Ground Emesis, Constipation, Cramping, Diarrhea, Dyspepsia, Dysphagia, Early Satiety, Excessive Flatus, Fecal Incontinence, Heartburn, Hematemesis, Hematochezia, Loose Stools, Melena, Nausea, Odynophagia, Temesmus, Vomiting, Other - Genitourinary Genitourinary: absent: As Per HPI, Change in Urinary Stream, Difficulty Urinating, Dysuria, Flank Pain, Hematuria, Pyuria, Nocturia, Urinary Incontinence, Urinary Frequency, Urinary Hesitance, Urinary Urgency, Voiding Freq/Small Amts, Freq UTI, Hx Renal/Bladder Calculi, Hx /Renal Surgery, Bladder Distension, Other - Reproductive: Female Reproductive:Female: absent: As Per HPI, Amenorrhea, Amenorrhea/ Control, Currently Menstual, Cycle <21 Days, Cycle >35 Days, Cycle Variable, Menses 1-7 Days, Menses >/= 8 Days, Menses Variable, Cycle > 4 Weeks Between, No Menses for 6 Months, Heavy Menses, Light Menses, Normal Menses, Spotting Between Cycles , S/P Hysterectomy, Menopausal, Post Menopausal, Premenarche, Abnormal Vaginal Bleeding, Dysmenorrhea, Dyspareunia, Genital Lesions, Genital Pruritis, Pelvic Pain, Prolapse Symptoms, Sexual Dysfunction, Vaginal Discharge, Vaginal Dryness , Vaginal Odor, Vaginal Pruritis, Other - Menstruation Menstruation: absent: As Per HPI, Amenorrhea, Amenorrhea/ Control, Currently Menstual, Cycle <21 Days, Cycle >35 Days, Cycle Variable, Menses 1-7 Days, Menses >/= 8 Days, Menses Variable, Cycle > 4 Weeks Between, No Menses for 6 Months, Heavy Menses, Light Menses, Normal Menses, Spotting Between Cycles , S/P Hysterectomy, Menopausal, Post Menopausal, Premenarche, Abnormal Vaginal Bleeding, Dysmenorrhea, Other - Musculoskeletal Musculoskeletal: As Per HPI - Integumentary Integumentary: As Per HPI, Skin Pain, Wounds - Neurological Neurological: absent: As Per HPI, Abnormal Gait, Abnormal Hearing, Abnormal Movements, Abnormal Speech, Behavioral Changes, Burning Sensations, Confusion, Convulsions, Disequilibrium, Dizziness, Numbness, Focal Weakness, Frequent Falls , Headaches, Lack of Coordination, Loss of Vision, Memory Loss, Paresthesias, Radicular Pain, Restless Legs, Sensory Deficit, Syncope, Tingling, Tremor, Vertigo, Weakness, Other Visual Disturbances, Other - Psychiatric Psychiatric: absent: As Per HPI, Abnormal Sleep Pattern, Anhedonia, Anxiety, Auditory Hallucinations, Behavioral Changes, Change in Appetite, Change in Libido, Confusion, Depression, Difficulty Concentrating, Hallucinations, Homicidal Ideation, Hopelessness, Irritability, Memory Loss, Mood Swings, Panic Attacks, Paranoia, Suicidal Ideation, Visual Hallucinations, Tactile Hallucinations, Other - Endocrine Endocrine: absent: As Per HPI, Change in Body Appearance, Change in Libido, Cold Intolorance, Deepening of Voice, Excessive Sweating, Fatigue, Flushing, Heat Intolorance, Increase in Ring/Shoe/Hat Size, Palpitations, Polydipsia, Polyphagia, Polyuria, Other - Hematologic/Lymphatic Hematologic: absent: As Per HPI, Easy Bleeding, Easy Bruising, Lymphadenopathy, Other Past Patient History - Infectious Disease Hx of Infectious Diseases: None - Tetanus Immunizations Tetanus Immunization: Unknown, Up to Date - Past Medical History & Family History Past Medical History?: Yes - Past Social History Smoking Status: Never Smoked Chewing Tobacco Use: No Cigar Use: No Alcohol: None Drugs: Denies Home Situation {Lives}: With Family Domestic Violence: Negative - CARDIAC Hx Hypertension: Yes - PULMONARY Hx Emphysema: Yes Hx Pneumonia: Yes - NEUROLOGICAL Hx Neurological Disorder: No Hx Vertigo: Yes - HEENT Hx HEENT Problems: No - RENAL Hx Chronic Kidney Disease: No - ENDOCRINE/METABOLIC Hx Diabetes Mellitus Type 2: Yes - HEMATOLOGICAL/ONCOLOGICAL Hx Anemia: Yes Hx Blood Transfusions: Yes - INTEGUMENTARY Hx Dermatological Problems: No Other/Comment: BLE w/ cauliflowered skin - MUSCULOSKELETAL/RHEUMATOLOGICAL Hx Arthritis: Yes - GASTROINTESTINAL Hx Gastrointestinal Disorders: No - GENITOURINARY/GYNECOLOGICAL Hx Genitourinary Disorders: No - PSYCHIATRIC Hx Anxiety: Yes Hx Substance Use: No - SURGICAL HISTORY Hx Cholecystectomy: Yes (in 2010) - ANESTHESIA Hx Anesthesia: Yes Hx Anesthesia Reactions: No Hx Malignant Hyperthermia: No Has any member of the family had a problem w/ anesthesia?: No Meds Home Medications: Home Medication List Medication Instructions Recorded Confirmed Type Cefepime 1gm in NS 100ml [Maxipime 1 gm IVPB Q12H #28 bag 12/21/16 Rx 1gm] Allergies/Adverse Reactions: Allergies Allergy/AdvReac Type Severity Reaction Status Date / Time Gadolinium-Containing Allergy ITCHING Verified 12/13/16 15:45 Contrast Medi - Medications Medications: Current Medications Albuterol Sulfate (Albuterol 0.042% Inhal Tricia (1.25mg/3ml) Ud) 1.25 mg INH RQ6 PRN PRN Reason: Shortness of Breath Collagenase (Santyl) 0 gm TOP DAILY [facility] Last Admin: 12/19/16 09:33 Dose: 1 applic Enalapril Maleate (Vasotec) 20 mg PO DAILY [facility] Last Admin: 12/19/16 09:31 Dose: 20 mg Epoetin Arturo (Procrit) 10,000 unit SC MWF [facility] Last Admin: 12/18/16 10:19 Dose: 10,000 unit Ferrous Sulfate (Feosol) 325 mg PO TID [facility] Last Admin: 12/19/16 09:33 Dose: 325 mg Furosemide (Lasix) 40 mg IVP DAILY [facility] Last Admin: 12/19/16 09:32 Dose: 40 mg Insulin Aspart (Novolog) 0 unit SC ACHS [facility] PRN Reason: Protocol Last Admin: 12/19/16 08:21 Dose: 1 unit Lactic Acid (Lac-Hydrin 12% Lotion (225 G)) 1 gm EXT BID [facility] Last Admin: 12/19/16 09:34 Dose: 1 applic Lorazepam (Ativan) 0.5 mg PO HS PRN PRN Reason: Anxiety Magnesium Oxide (Mag-Ox) 400 mg PO BID [facility] Last Admin: 12/19/16 09:32 Dose: 400 mg Multivitamins (Hexavitamin) 1 tab PO DAILY [facility] Last Admin: 12/19/16 09:31 Dose: 1 tab Nystatin (Nystop Topical Powder) 1 applic TOP BID [facility] Last Admin: 12/19/16 09:34 Dose: 1 applic Pantoprazole Sodium (Protonix Ec Tab) 40 mg PO DAILY [facility] Last Admin: 12/19/16 09:32 Dose: 40 mg Potassium Chloride (K-Dur 20 Meq Er Tab) 20 meq PO DAILY [facility] Last Admin: 12/19/16 09:32 Dose: 20 meq Tramadol HCl (Ultram) 50 mg PO Q4H PRN PRN Reason: Pain, moderate (4-7) Last Admin: 12/16/16 12:32 Dose: 50 mg Vitamin B Complex/Vitamin C (Berocca) 1 tab PO DAILY [facility] Last Admin: 12/19/16 09:32 Dose: 1 tab Physical Exam - Constitutional Appears: Non-toxic, Chronically Ill - Head Exam Head Exam: NORMOCEPHALIC - Eye Exam Eye Exam: PERRL. absent: Scleral icterus - ENT Exam ENT Exam: Mucous Membranes Dry, Normal External Ear Exam - Neck Exam Neck exam: Negative for: Lymphadenopathy - Respiratory Exam Respiratory Exam: Decreased Breath Sounds, Rhonchi - Cardiovascular Exam Cardiovascular Exam: REGULAR RHYTHM, +S1, +S2 - GI/Abdominal Exam GI & Abdominal Exam: Diminished Bowel Sounds, Soft. absent: Tenderness - Rectal Exam Rectal Exam: Deferred - Exam Exam: NORMAL INSPECTION - Extremities Exam Extremities exam: Positive for: pedal edema, tenderness. Negative for: calf tenderness, pedal pulses present - Back Exam Back exam: absent: CVA tenderness (L), CVA tenderness (R), paraspinal tenderness - Neurological Exam Neurological exam: Alert, CN II-XII Intact, Oriented x3, Reflexes Normal - Psychiatric Exam Psychiatric exam: Normal Mood - Skin Skin Exam: Dry Results - Vital Signs Recent Vital Signs: Last Vital Signs Temp 98 F 12/19/16 07:27 Pulse 80 12/19/16 07:27 Resp 20 12/19/16 07:27 BP 140/76 12/19/16 09:32 Pulse Ox 97 12/19/16 07:27 - Labs Result Diagrams: 12/21/16 15:05 12/21/16 14:20 Labs: Laboratory Results - last 24 hr 12/18/16 12/18/16 12/19/16 16:30 21:13 06:52 WBC RBC Hgb Hct MCV MCH MCHC RDW Plt Count MPV Neut % (Auto) Lymph % (Auto) [place] % (Auto) Eos % (Auto) Baso % (Auto) Neut # Lymph # [place] # Eos # Baso # Sodium 140 Potassium 3.2 L Chloride 106 Carbon Dioxide 29 Anion Gap 8 L BUN 21 H Creatinine 0.8 Est GFR ( Amer) > 60 Est GFR (Non-Af Amer) > 60 POC Glucose (mg/dL) 123 H 202 H Random Glucose 130 H Calcium 7.9 L Total Bilirubin 0.9 AST 16 ALT 28 Alkaline Phosphatase 122 Total Protein 6.1 L Albumin 1.8 L Globulin 4.3 H Albumin/Globulin Ratio 0.4 L 12/19/16 12/19/16 12/19/16 07:10 11:06 11:08 WBC 13.0 H RBC 3.47 L Hgb 10.6 L Hct 33.9 L MCV 98.0 MCH 30.7 MCHC 31.3 L RDW 25.2 H Plt Count 80 L D MPV 9.3 Neut % (Auto) 53.3 Lymph % (Auto) 17.0 L [place] % (Auto) 28.7 H Eos % (Auto) 0.2 Baso % (Auto) 0.8 Neut # 7.0 Lymph # 2.2 [place] # 3.7 H Eos # 0.0 Baso # 0.1 Sodium Potassium Chloride Carbon Dioxide Anion Gap BUN Creatinine Est GFR ( Amer) Est GFR (Non-Af Amer) POC Glucose (mg/dL) 184 H 173 H Random Glucose Calcium Total Bilirubin AST ALT Alkaline Phosphatase Total Protein Albumin Globulin Albumin/Globulin Ratio Assessment & Plan (1) Diabetes mellitus type 2 in obese Status: Acute Priority: Medium (2) Fever Status: Acute (3) Heel ulcer Status: Acute - Assessment and Plan (Free Text) Assessment: check bone scan cont iv antibiotics
[2016-12-19] MEDS: Cefepime IV 1 gm in Dextrose 1 GM/50 ML BAG IVPB SCH (13:16)
[2016-12-19] MEDS: Albuterol 0.042% Inhal Sol (1.25 mg/3 mL) UD INH PRN ×2 (14:14→20:56)
--- NOTE | 2016-12-19 22:29 | CP.PCM.PN ---
Subjective - Date & Time of Evaluation Date of Evaluation: 12/19/16 Time of Evaluation: 13:15 - Subjective Subjective: Patient still has shortness of breath on exertion. Patient feels weak and has poor appetite. Patient evaluated by Dr Castro. She was also seen by Dr Prabhakar. Continue present meds. Objective - Vital Signs/Intake and Output Vital Signs (last 24 hours): Temp Pulse Resp BP Pulse Ox 98 F 96 H 20 102/62 95 12/19/16 15:50 12/19/16 15:50 12/19/16 15:50 12/19/16 15:50 12/19/16 15:50 Intake and Output: 12/19/16 12/20/16 18:59 06:59 Intake Total 240 Balance 240 - Medications Medications: Current Medications Albuterol Sulfate (Albuterol 0.042% Inhal Tricia (1.25mg/3ml) Ud) 1.25 mg INH RQ6 PRN PRN Reason: Shortness of Breath Last Admin: 12/19/16 20:56 Dose: 1.25 mg Collagenase (Santyl) 0 gm TOP DAILY [facility] Last Admin: 12/19/16 09:33 Dose: 1 applic Enalapril Maleate (Vasotec) 20 mg PO DAILY [facility] Last Admin: 12/19/16 09:31 Dose: 20 mg Epoetin Arturo (Procrit) 10,000 unit SC MWF [facility] Last Admin: 12/18/16 10:19 Dose: 10,000 unit Ferrous Sulfate (Feosol) 325 mg PO TID [facility] Last Admin: 12/19/16 17:51 Dose: 325 mg Furosemide (Lasix) 40 mg IVP DAILY [facility] Last Admin: 12/19/16 09:32 Dose: 40 mg Cefepime HCl (Maxipime Iv 1 Gm Premix) 1 gm in 50 mls @ 100 mls/hr IVPB Q12H [facility] Last Admin: 12/19/16 13:16 Dose: 100 mls/hr Insulin Aspart (Novolog) 0 unit SC ACHS [facility] PRN Reason: Protocol Last Admin: 12/19/16 21:20 Dose: Not Given Lactic Acid (Lac-Hydrin 12% Lotion (225 G)) 1 gm EXT BID [facility] Last Admin: 12/19/16 18:00 Dose: 1 applic Lorazepam (Ativan) 0.5 mg PO HS PRN PRN Reason: Anxiety Magnesium Oxide (Mag-Ox) 400 mg PO BID [facility] Last Admin: 12/19/16 17:50 Dose: 400 mg Multivitamins (Hexavitamin) 1 tab PO DAILY [facility] Last Admin: 12/19/16 09:31 Dose: 1 tab Nystatin (Nystop Topical Powder) 1 applic TOP BID [facility] Last Admin: 12/19/16 18:00 Dose: 1 applic Pantoprazole Sodium (Protonix Ec Tab) 40 mg PO DAILY [facility] Last Admin: 12/19/16 09:32 Dose: 40 mg Potassium Chloride (K-Dur 20 Meq Er Tab) 20 meq PO DAILY [facility] Last Admin: 12/19/16 09:32 Dose: 20 meq Tramadol HCl (Ultram) 50 mg PO Q4H PRN PRN Reason: Pain, moderate (4-7) Last Admin: 12/16/16 12:32 Dose: 50 mg Vitamin B Complex/Vitamin C (Berocca) 1 tab PO DAILY [facility] Last Admin: 12/19/16 09:32 Dose: 1 tab - Labs Labs: 12/19/16 11:08 12/19/16 06:52 - Constitutional Appears: Chronically Ill - Head Exam Head Exam: NORMOCEPHALIC - Eye Exam Eye Exam: Normal appearance - ENT Exam ENT Exam: Normal Exam - Neck Exam Neck Exam: Normal Inspection - Respiratory Exam Respiratory Exam: Decreased Breath Sounds - Cardiovascular Exam Cardiovascular Exam: REGULAR RHYTHM - GI/Abdominal Exam GI & Abdominal Exam: Hyperactive Bowel Sounds - Rectal Exam Rectal Exam: Deferred - Exam External exam: NORMAL EXTERNAL EXAM - Extremities Exam Extremities Exam: Pedal Edema - Back Exam Back Exam: NORMAL INSPECTION - Neurological Exam Neurological Exam: Oriented x3 - Psychiatric Exam Psychiatric exam: Depressed - Skin Skin Exam: Dry Assessment and Plan (1) Anemia Status: Acute (2) Dehydration Status: Acute (3) Myelodysplasia, high grade Status: Acute (4) Thrombocytopenia Status: Acute (5) Osteoarthritis Status: Acute (6) Heel ulcer Status: Acute
--- NOTE | 2016-12-19 23:58 | CP.PCM.PN ---
Subjective - Date & Time of Evaluation Date of Evaluation: 12/19/16 Time of Evaluation: 20:00 - Subjective Subjective: Patient still wek and SOB. Now on Cefepime IV. Will discontinue IV Lasix and switch to PO Bumex 1mg qd. Objective - Vital Signs/Intake and Output Vital Signs (last 24 hours): Temp Pulse Resp BP Pulse Ox 98 F 96 H 20 102/62 95 12/19/16 15:50 12/19/16 15:50 12/19/16 15:50 12/19/16 15:50 12/19/16 15:50 Intake and Output: 12/19/16 12/20/16 18:59 06:59 Intake Total 240 Balance 240 - Medications Medications: Current Medications Albuterol Sulfate (Albuterol 0.042% Inhal Tricia (1.25mg/3ml) Ud) 1.25 mg INH RQ6 PRN PRN Reason: Shortness of Breath Last Admin: 12/19/16 20:56 Dose: 1.25 mg Collagenase (Santyl) 0 gm TOP DAILY [facility] Last Admin: 12/19/16 09:33 Dose: 1 applic Enalapril Maleate (Vasotec) 20 mg PO DAILY [facility] Last Admin: 12/19/16 09:31 Dose: 20 mg Epoetin Arturo (Procrit) 10,000 unit SC MWF [facility] Last Admin: 12/18/16 10:19 Dose: 10,000 unit Ferrous Sulfate (Feosol) 325 mg PO TID [facility] Last Admin: 12/19/16 17:51 Dose: 325 mg Furosemide (Lasix) 40 mg IVP DAILY [facility] Last Admin: 12/19/16 09:32 Dose: 40 mg Cefepime HCl (Maxipime Iv 1 Gm Premix) 1 gm in 50 mls @ 100 mls/hr IVPB Q12H [facility] Last Admin: 12/19/16 13:16 Dose: 100 mls/hr Insulin Aspart (Novolog) 0 unit SC ACHS [facility] PRN Reason: Protocol Last Admin: 12/19/16 21:20 Dose: Not Given Lactic Acid (Lac-Hydrin 12% Lotion (225 G)) 1 gm EXT BID [facility] Last Admin: 12/19/16 18:00 Dose: 1 applic Lorazepam (Ativan) 0.5 mg PO HS PRN PRN Reason: Anxiety Magnesium Oxide (Mag-Ox) 400 mg PO BID [facility] Last Admin: 12/19/16 17:50 Dose: 400 mg Multivitamins (Hexavitamin) 1 tab PO DAILY [facility] Last Admin: 12/19/16 09:31 Dose: 1 tab Nystatin (Nystop Topical Powder) 1 applic TOP BID [facility] Last Admin: 12/19/16 18:00 Dose: 1 applic Pantoprazole Sodium (Protonix Ec Tab) 40 mg PO DAILY [facility] Last Admin: 12/19/16 09:32 Dose: 40 mg Potassium Chloride (K-Dur 20 Meq Er Tab) 20 meq PO DAILY [facility] Last Admin: 12/19/16 09:32 Dose: 20 meq Tramadol HCl (Ultram) 50 mg PO Q4H PRN PRN Reason: Pain, moderate (4-7) Last Admin: 12/16/16 12:32 Dose: 50 mg Vitamin B Complex/Vitamin C (Berocca) 1 tab PO DAILY [facility] Last Admin: 12/19/16 09:32 Dose: 1 tab - Labs Labs: 12/19/16 11:08 12/19/16 06:52 - Constitutional Appears: Chronically Ill - Head Exam Head Exam: NORMAL INSPECTION - Eye Exam Eye Exam: Normal appearance - ENT Exam ENT Exam: Normal Exam - Neck Exam Neck Exam: Normal Inspection - Respiratory Exam Respiratory Exam: Rales Additional comments: Still with rales bilaterally. - Cardiovascular Exam Cardiovascular Exam: REGULAR RHYTHM - GI/Abdominal Exam GI & Abdominal Exam: Soft, Normal Bowel Sounds - Extremities Exam Extremities Exam: Pedal Edema - Back Exam Back Exam: NORMAL INSPECTION - Neurological Exam Neurological Exam: Alert, Awake, Oriented x3 - Psychiatric Exam Psychiatric exam: Anxious Assessment and Plan (1) Pancytopenia Status: Acute (2) Lymphedema of lower extremity Status: Acute (3) Acute on chronic diastolic (congestive) heart failure Assessment & Plan: Switch to Bumex 1mg POqd. Status: Acute
[2016-12-20] MEDS: Cefepime IV 1 gm in Dextrose 1 GM/50 ML BAG IVPB SCH ×2 (00:15→12:27)
[2016-12-20 07:43] LABS: RED CELL DISTRIBUTION WIDTH 25.7 % (11.5-14.5)
[2016-12-20 07:50] LABS: BASO % 0.2 % (0.0-2.0); CHLORIDE 101 mmol/L (98-107); EOS % 0.1 % (0.0-4.0); HEMATOCRIT 32.8 % (34.0-47.0); LYMPH # 2.2 K/uL (1.0-4.3); LYMPH % 18.2 % (20.0-40.0); MEAN PLATELET VOLUME 9.7 fL (7.2-11.7); MONO # 3.5 K/uL (0.0-0.8); MONO % 29.5 % (0.0-10.0); NRBC % 3.2 % (0.0-2.0); PLATELET COUNT 62 K/uL (130-400); SODIUM 141 mmol/L (132-148); WHITE BLOOD COUNT 11.9 K/uL (4.8-10.8)
[2016-12-20 07:51] LABS: POTASSIUM 4.2 mmol/L (3.6-5.2)
[2016-12-20 07:53] LABS: BLOOD UREA NITROGEN 30 mg/dL (7-17); CARBON DIOXIDE 32 mmol/L (22-30); GFR AFRICAN-AMERICAN > 60
[2016-12-20 07:54] LABS: CALCIUM 9.3 mg/dl (8.6-10.4); GLUCOSE,RANDOM 133 mg/dL (65-105)
[2016-12-20] MEDS: Albuterol 0.042% Inhal Sol (1.25 mg/3 mL) UD INH PRN ×3 (07:57→19:46)
[2016-12-20] MEDS: (Novolog) Insulin Aspart, Recombinant 100 u/ml 10 ml vial SC SCH ×4 (08:27→22:11)
[2016-12-20 08:52] LABS: NUCLEATED RED BLOOD CELL 4 % (0-0); TOTAL CELLS COUNTED 100
[2016-12-20 08:53] LABS: NEUTROPHIL 58 % (50-75)
[2016-12-20] MEDS: Potassium Chloride 20 mEq ER Tab PO SCH (09:55)
[2016-12-20] MEDS: Pantoprazole 40 mg EC Tab PO SCH (09:55)
[2016-12-20] MEDS: EPOETIN ALFA 10,000 UNIT/ML ML SC SCH (09:55)
[2016-12-20] MEDS: Multiple Vitamins Tab PO SCH (09:56)
[2016-12-20] MEDS: Collagenase 250 Units/gm Ointment(30 gm) TOP SCH (09:56)
[2016-12-20] MEDS: Vitamin B Complex/Vitamin C Tab PO SCH (09:56)
[2016-12-20] MEDS: Magnesium Oxide 400 mg Tab UD PO SCH ×2 (09:56→17:42)
[2016-12-20] MEDS: Ammonium Lactate 12% Lotion (225 g) EXT SCH ×2 (09:57→18:00)
--- NOTE | 2016-12-20 11:16 | CP.PCM.PN ---
Subjective - Date & Time of Evaluation Date of Evaluation: 12/20/16 Time of Evaluation: 11:16 - Subjective Subjective: 76 year old female seen at bedside this morning with attending for right chronic heel ulcer. She states that today she is feeling much better. She has her offloading boots on her right foot She currently denies any v/f/c/sob/cp Objective - Vital Signs/Intake and Output Vital Signs (last 24 hours): Temp Pulse Resp BP Pulse Ox 97.5 F L 88 20 113/72 98 12/20/16 07:41 12/20/16 07:41 12/20/16 07:41 12/20/16 09:56 12/20/16 07:41 Intake and Output: 12/20/16 12/20/16 06:59 18:59 Intake Total 50 Balance 50 - Medications Medications: Current Medications Albuterol Sulfate (Albuterol 0.042% Inhal Tricia (1.25mg/3ml) Ud) 1.25 mg INH RQ6 PRN PRN Reason: Shortness of Breath Last Admin: 12/20/16 07:57 Dose: 1.25 mg Bumetanide (Bumex) 1 mg PO DAILY [facility] Last Admin: 12/20/16 09:56 Dose: 1 mg Collagenase (Santyl) 0 gm TOP DAILY [facility] Last Admin: 12/20/16 09:56 Dose: 1 applic Enalapril Maleate (Vasotec) 20 mg PO DAILY [facility] Last Admin: 12/20/16 09:56 Dose: 20 mg Epoetin Arturo (Procrit) 10,000 unit SC MWF [facility] Last Admin: 12/20/16 09:55 Dose: 10,000 unit Ferrous Sulfate (Feosol) 325 mg PO TID [facility] Last Admin: 12/20/16 09:56 Dose: 325 mg Cefepime HCl (Maxipime Iv 1 Gm Premix) 1 gm in 50 mls @ 100 mls/hr IVPB Q12H [facility] Last Admin: 12/20/16 00:15 Dose: 100 mls/hr Insulin Aspart (Novolog) 0 unit SC ACHS [facility] PRN Reason: Protocol Last Admin: 12/20/16 08:27 Dose: Not Given Lactic Acid (Lac-Hydrin 12% Lotion (225 G)) 1 gm EXT BID [facility] Last Admin: 12/20/16 09:57 Dose: 1 applic Lorazepam (Ativan) 0.5 mg PO HS PRN PRN Reason: Anxiety Magnesium Oxide (Mag-Ox) 400 mg PO BID [facility] Last Admin: 12/20/16 09:56 Dose: 400 mg Multivitamins (Hexavitamin) 1 tab PO DAILY [facility] Last Admin: 12/20/16 09:56 Dose: 1 tab Nystatin (Nystop Topical Powder) 1 applic TOP BID [facility] Last Admin: 12/20/16 09:57 Dose: 1 applic Pantoprazole Sodium (Protonix Ec Tab) 40 mg PO DAILY [facility] Last Admin: 12/20/16 09:55 Dose: 40 mg Potassium Chloride (K-Dur 20 Meq Er Tab) 40 meq PO DAILY [facility] Last Admin: 12/20/16 09:55 Dose: 40 meq Tramadol HCl (Ultram) 50 mg PO Q4H PRN PRN Reason: Pain, moderate (4-7) Last Admin: 12/16/16 12:32 Dose: 50 mg Vitamin B Complex/Vitamin C (Berocca) 1 tab PO DAILY [facility] Last Admin: 12/20/16 09:56 Dose: 1 tab - Labs Labs: 12/20/16 07:31 12/20/16 07:31 - Constitutional Appears: Non-toxic, No Acute Distress - Extremities Exam Additional comments: Right LE focused exam Vasc: DP and PT pulses non-palpable, CFT < 3 sec, temp unremarkable. Neuro: Protective sensation diminished, light touch sensation intact. Derm: Open ulceration noted to the plantar right heel measuring approximately 2 cm by 2 cm, with a fibrogranular base, no drainage, no purulence, no probe to bone, no malodor noted. Ortho: Tenderness on palpation of right foot plantar ulceration, Decreased ROM to LE secondary to edema with weakness. - Neurological Exam Neurological Exam: Alert, Awake, Oriented x3 - Psychiatric Exam Psychiatric exam: Normal Affect, Normal Mood Assessment and Plan - Assessment and Plan (Free Text) Assessment: 76 year old female with right chronic plantar heel ulceration Plan: Patient examined and evaluated. Chart, labs, & vitals reviewed;afebrile, WBC 11.9 Discussed with attending, Dr. Thompson Right heel dressed with santyl and DSD Multipodus boots applied to bilateral lower extremities for use while in bed to off-load heels. wound culture results-pseudomonas bone scan pending per primary team podiatry will continue to follow patient while in house
--- NOTE | 2016-12-20 18:42 | CP.PCM.CON ---
History of Present Illness - History of Present Illness History of Present Illness: 75 yo female with Hx of myelodysplastic syndrome, chronic anemia and thrombocytopenia presents to ED with complaints of generalized weakness and loss of appetite with associated loss of energy for several days. Patient reports she was hospitalized 09/2016 for thrombocytopenia and had transfusion with diagnosed UTI and was discharged to a Rehab to continue antibiotics. Patient states when she went home she was okay until a couple of days ago when symptoms developed. Physical therapy went to her home today for therapy and patient could not even lift legs and was advised to come to ED for further evaluation. Patient has Hx of chronic leg pain and leg edema with associated ulceration. Patient denies URI symptoms, abdominal pain, Urinary symptoms or any other complaints at this time. RX IN PROGRESS POSSIBLE OM RIGHT HEEL - Medical History PMH: Anemia, Arthritis, HTN, Pneumonia Denies: Chronic Kidney Disease Surgical History: Cholecystectomy (in 2010) Review of Systems - Constitutional Constitutional: As Per HPI - EENT Eyes: absent: As Per HPI, Blind Spots, Blurred Vision, Change in Vision, Decreased Night Vision, Diplopia, Discharge, Dry Eye, Exophthalmos, Floaters, Irritation, Itchy Eyes, Loss of Peripheral Vision, Pain, Photophobia, Requires Corrective Lenses, Sees Flashes, Spots in Vision, Tunnel Vision, Other Visual Disturbances, Loss of Vision, Other Ears: absent: As Per HPI, Decreased Hearing, Ear Discharge, Ear Pain, Tinnitus, Abnormal Hearing, Disequilibrium, Dizziness, Other Nose/Mouth/Throat: absent: As Per HPI, Epistaxis, Nasal Congestion, Nasal Discharge, Nasal Obstruction, Nasal Trauma, Nose Pain, Post Nasal Drip, Sinus Pain, Sinus Pressure, Bleeding Gums, Change in Voice, Dental Pain, Dry Mouth, Dysphagia, Halitosis, Hoarsness, Lip Swelling, Mouth Lesions, Mouth Pain, Odynophagia, Sore Throat, Throat Swelling, Tongue Swelling, Facial Pain, Neck Pain, Neck Mass, Other - Breasts Breasts: absent: As Per HPI, Change in Shape, Mass, Pain, Nipple Discharge, Nipple Inversion, Skin Changes, Swelling, Other - Cardiovascular Cardiovascular: absent: As Per HPI, Acrocyanosis, Chest Pain, Chest Pain at Rest , Chest Pain with Activity, Claudication, Diaphoresis, Dyspnea, Dyspnea on Exertion, Edema, Irregular Heart Rhythm, Pain Radiating to Arm/Neck/Jaw, Leg Edema, Leg Ulcers, Lightheadedness, Orthopnea, Palpitations, Paroxysmal Nocturnal Dyspnea, Pedal Edema, Radiating Pain, Rapid Heart Rate, Slow Heart Rate, Syncope, Other - Respiratory Respiratory: absent: As Per HPI, Cough, Dyspnea, Hemoptysis, Dyspnea on Exertion , Wheezing, Snoring, Stridor, Pain on Inspiration, Chest Congestion, Excessive Mucous Production, Change in Mucous Color, Pain with Coughing, Other - Gastrointestinal Gastrointestinal: absent: As Per HPI, Abdominal Pain, Belching, Bloating, Change in Bowel Habits, Change in Stool Character, Coffee Ground Emesis, Constipation, Cramping, Diarrhea, Dyspepsia, Dysphagia, Early Satiety, Excessive Flatus, Fecal Incontinence, Heartburn, Hematemesis, Hematochezia, Loose Stools, Melena, Nausea, Odynophagia, Temesmus, Vomiting, Other - Genitourinary Genitourinary: absent: As Per HPI, Change in Urinary Stream, Difficulty Urinating, Dysuria, Flank Pain, Hematuria, Pyuria, Nocturia, Urinary Incontinence, Urinary Frequency, Urinary Hesitance, Urinary Urgency, Voiding Freq/Small Amts, Freq UTI, Hx Renal/Bladder Calculi, Hx /Renal Surgery, Bladder Distension, Other - Reproductive: Female Reproductive:Female: absent: As Per HPI, Amenorrhea, Amenorrhea/ Control, Currently Menstual, Cycle <21 Days, Cycle >35 Days, Cycle Variable, Menses 1-7 Days, Menses >/= 8 Days, Menses Variable, Cycle > 4 Weeks Between, No Menses for 6 Months, Heavy Menses, Light Menses, Normal Menses, Spotting Between Cycles , S/P Hysterectomy, Menopausal, Post Menopausal, Premenarche, Abnormal Vaginal Bleeding, Dysmenorrhea, Dyspareunia, Genital Lesions, Genital Pruritis, Pelvic Pain, Prolapse Symptoms, Sexual Dysfunction, Vaginal Discharge, Vaginal Dryness , Vaginal Odor, Vaginal Pruritis, Other - Menstruation Menstruation: absent: As Per HPI, Amenorrhea, Amenorrhea/ Control, Currently Menstual, Cycle <21 Days, Cycle >35 Days, Cycle Variable, Menses 1-7 Days, Menses >/= 8 Days, Menses Variable, Cycle > 4 Weeks Between, No Menses for 6 Months, Heavy Menses, Light Menses, Normal Menses, Spotting Between Cycles , S/P Hysterectomy, Menopausal, Post Menopausal, Premenarche, Abnormal Vaginal Bleeding, Dysmenorrhea, Other - Musculoskeletal Musculoskeletal: As Per HPI - Integumentary Integumentary: As Per HPI, Skin Pain, Wounds - Neurological Neurological: absent: As Per HPI, Abnormal Gait, Abnormal Hearing, Abnormal Movements, Abnormal Speech, Behavioral Changes, Burning Sensations, Confusion, Convulsions, Disequilibrium, Dizziness, Numbness, Focal Weakness, Frequent Falls , Headaches, Lack of Coordination, Loss of Vision, Memory Loss, Paresthesias, Radicular Pain, Restless Legs, Sensory Deficit, Syncope, Tingling, Tremor, Vertigo, Weakness, Other Visual Disturbances, Other - Psychiatric Psychiatric: absent: As Per HPI, Abnormal Sleep Pattern, Anhedonia, Anxiety, Auditory Hallucinations, Behavioral Changes, Change in Appetite, Change in Libido, Confusion, Depression, Difficulty Concentrating, Hallucinations, Homicidal Ideation, Hopelessness, Irritability, Memory Loss, Mood Swings, Panic Attacks, Paranoia, Suicidal Ideation, Visual Hallucinations, Tactile Hallucinations, Other Past Patient History - Infectious Disease Hx of Infectious Diseases: None - Tetanus Immunizations Tetanus Immunization: Unknown, Up to Date - Past Medical History & Family History Past Medical History?: Yes - Past Social History Smoking Status: Never Smoked Chewing Tobacco Use: No Cigar Use: No Alcohol: None Drugs: Denies Home Situation {Lives}: With Family Domestic Violence: Negative - CARDIAC Hx Hypertension: Yes - PULMONARY Hx Emphysema: Yes Hx Pneumonia: Yes - NEUROLOGICAL Hx Neurological Disorder: No Hx Vertigo: Yes - HEENT Hx HEENT Problems: No - RENAL Hx Chronic Kidney Disease: No - ENDOCRINE/METABOLIC Hx Diabetes Mellitus Type 2: Yes - HEMATOLOGICAL/ONCOLOGICAL Hx Anemia: Yes Hx Blood Transfusions: Yes - INTEGUMENTARY Hx Dermatological Problems: No Other/Comment: BLE w/ cauliflowered skin - MUSCULOSKELETAL/RHEUMATOLOGICAL Hx Arthritis: Yes - GASTROINTESTINAL Hx Gastrointestinal Disorders: No - GENITOURINARY/GYNECOLOGICAL Hx Genitourinary Disorders: No - PSYCHIATRIC Hx Anxiety: Yes Hx Substance Use: No - SURGICAL HISTORY Hx Cholecystectomy: Yes (in 2010) - ANESTHESIA Hx Anesthesia: Yes Hx Anesthesia Reactions: No Hx Malignant Hyperthermia: No Has any member of the family had a problem w/ anesthesia?: No Meds Allergies/Adverse Reactions: Allergies Allergy/AdvReac Type Severity Reaction Status Date / Time Gadolinium-Containing Allergy ITCHING Verified 08/16/17 15:45 Contrast Medi - Medications Medications: Current Medications Albuterol Sulfate (Albuterol 0.042% Inhal Tricia (1.25mg/3ml) Ud) 1.25 mg INH RQ6 PRN PRN Reason: Shortness of Breath Last Admin: 12/20/16 13:23 Dose: 1.25 mg Bumetanide (Bumex) 1 mg PO DAILY [facility] Last Admin: 12/20/16 09:56 Dose: 1 mg Collagenase (Santyl) 0 gm TOP DAILY [facility] Last Admin: 12/20/16 09:56 Dose: 1 applic Enalapril Maleate (Vasotec) 20 mg PO DAILY [facility] Last Admin: 12/20/16 09:56 Dose: 20 mg Epoetin Arturo (Procrit) 10,000 unit SC MWF [facility] Last Admin: 12/20/16 09:55 Dose: 10,000 unit Ferrous Sulfate (Feosol) 325 mg PO TID [facility] Last Admin: 12/20/16 17:45 Dose: 325 mg Cefepime HCl (Maxipime Iv 1 Gm Premix) 1 gm in 50 mls @ 100 mls/hr IVPB Q12H [facility] Last Admin: 12/20/16 12:27 Dose: 100 mls/hr Insulin Aspart (Novolog) 0 unit SC ACHS [facility] PRN Reason: Protocol Last Admin: 12/20/16 16:30 Dose: 2 unit Lactic Acid (Lac-Hydrin 12% Lotion (225 G)) 1 gm EXT BID [facility] Last Admin: 12/20/16 09:57 Dose: 1 applic Lorazepam (Ativan) 0.5 mg PO HS PRN PRN Reason: Anxiety Magnesium Oxide (Mag-Ox) 400 mg PO BID [facility] Last Admin: 12/20/16 17:42 Dose: 400 mg Multivitamins (Hexavitamin) 1 tab PO DAILY [facility] Last Admin: 12/20/16 09:56 Dose: 1 tab Nystatin (Nystop Topical Powder) 1 applic TOP BID [facility] Last Admin: 12/20/16 17:49 Dose: 1 applic Pantoprazole Sodium (Protonix Ec Tab) 40 mg PO DAILY [facility] Last Admin: 12/20/16 09:55 Dose: 40 mg Potassium Chloride (K-Dur 20 Meq Er Tab) 40 meq PO DAILY [facility] Last Admin: 08/23/17 09:55 Dose: 40 meq Tramadol HCl (Ultram) 50 mg PO Q4H PRN PRN Reason: Pain, moderate (4-7) Last Admin: 12/16/16 12:32 Dose: 50 mg Vitamin B Complex/Vitamin C (Berocca) 1 tab PO DAILY [facility] Last Admin: 12/20/16 09:56 Dose: 1 tab Physical Exam - Constitutional Appears: Non-toxic, Chronically Ill - Head Exam Head Exam: NORMOCEPHALIC - Eye Exam Eye Exam: PERRL. absent: Scleral icterus - ENT Exam ENT Exam: Mucous Membranes Dry, Normal External Ear Exam - Neck Exam Neck exam: Negative for: Lymphadenopathy - Respiratory Exam Respiratory Exam: Decreased Breath Sounds, Rhonchi - Cardiovascular Exam Cardiovascular Exam: REGULAR RHYTHM - GI/Abdominal Exam GI & Abdominal Exam: Diminished Bowel Sounds, Soft. absent: Tenderness - Rectal Exam Rectal Exam: Deferred - Exam Exam: NORMAL INSPECTION - Extremities Exam Extremities exam: Positive for: pedal edema, tenderness, pedal pulses present. Negative for: calf tenderness - Back Exam Back exam: absent: CVA tenderness (L), CVA tenderness (R) - Neurological Exam Neurological exam: Alert, Altered, CN II-XII Intact, Oriented x3, Reflexes Normal - Psychiatric Exam Psychiatric exam: Normal Mood - Skin Skin Exam: Dry Results - Vital Signs Recent Vital Signs: Last Vital Signs Temp 98.4 F 12/20/16 16:03 Pulse 89 12/20/16 16:03 Resp 20 12/20/16 16:03 BP 132/71 12/20/16 16:03 Pulse Ox 98 12/20/16 16:03 - Labs Result Diagrams: 12/20/16 07:31 12/20/16 07:31 Labs: Laboratory Results - last 24 hr 12/19/16 12/20/16 12/20/16 21:18 07:17 07:31 WBC 11.9 H RBC 3.28 L Hgb 9.8 L Hct 32.8 L MCV 100.0 H D MCH 30.0 MCHC 30.0 L RDW 25.7 H Plt Count 62 L MPV 9.7 Neut % (Auto) 52.0 Lymph % (Auto) 18.2 L [place] % (Auto) 29.5 H Eos % (Auto) 0.1 Baso % (Auto) 0.2 Neut # 6.2 Lymph # 2.2 [place] # 3.5 H Eos # 0.0 Baso # 0.0 Neutrophils % (Manual) 58 Band Neutrophils % 2 Lymphocytes % (Manual) 16 L Monocytes % (Manual) 24 H Nucleated RBC % 4 H Platelet Estimate Decreased L Hypochromasia (manual) Slight Poikilocytosis (manual Slight Anisocytosis (manual) Slight Microcytosis (manual) Slight Macrocytosis (manual) Slight Target Cells Slight Ovalocytes Slight Sodium Potassium Chloride Carbon Dioxide Anion Gap BUN Creatinine Est GFR ( Amer) Est GFR (Non-Af Amer) POC Glucose (mg/dL) 156 H 143 H Random Glucose Calcium CA 125 Antigen 12/20/16 12/20/16 12/20/16 07:31 11:08 16:32 WBC RBC Hgb Hct MCV MCH MCHC RDW Plt Count MPV Neut % (Auto) Lymph % (Auto) [place] % (Auto) Eos % (Auto) Baso % (Auto) Neut # Lymph # [place] # Eos # Baso # Neutrophils % (Manual) Band Neutrophils % Lymphocytes % (Manual) Monocytes % (Manual) Nucleated RBC % Platelet Estimate Hypochromasia (manual) Poikilocytosis (manual Anisocytosis (manual) Microcytosis (manual) Macrocytosis (manual) Target Cells Ovalocytes Sodium 141 Potassium 4.2 Chloride 101 Carbon Dioxide 32 H Anion Gap 12 BUN 30 H Creatinine 0.9 Est GFR ( Amer) > 60 Est GFR (Non-Af Amer) > 60 POC Glucose (mg/dL) 161 H 231 H Random Glucose 133 H Calcium 9.3 CA 125 Antigen 368 H Assessment & Plan (1) Osteomyelitis Status: Acute (2) Osteomyelitis Status: Acute (3) Acute on chronic diastolic (congestive) heart failure Status: Acute (4) Dehydration Status: Acute (5) Heel ulcer Status: Acute (6) Myelodysplasia, high grade Status: Acute (7) Thrombocytopenia Status: Acute (8) Anemia Status: Acute Priority: High (9) Osteoarthritis Status: Acute Priority: Medium - Assessment and Plan (Free Text) Assessment: R/O OM RIGHT HEEL REFUSES MRI CONT IV RX PER DR ENGLE POSSIBLY 6 WEEKS
--- NOTE | 2016-12-20 22:33 | CP.PCM.PN ---
Subjective - Date & Time of Evaluation Date of Evaluation: 12/20/16 Time of Evaluation: 13:20 - Subjective Subjective: Patient very weak. She is not eating. Dr Prabhakar evaluated the patient for osteomyolitis. He suggests IV antibiotic therapy. Objective - Vital Signs/Intake and Output Vital Signs (last 24 hours): Temp Pulse Resp BP Pulse Ox 98.4 F 89 20 132/71 98 12/20/16 16:03 12/20/16 16:03 12/20/16 16:03 12/20/16 16:03 12/20/16 16:03 Intake and Output: 12/20/16 12/21/16 18:59 06:59 Intake Total 350 Balance 350 - Medications Medications: Current Medications Albuterol Sulfate (Albuterol 0.042% Inhal Tricia (1.25mg/3ml) Ud) 1.25 mg INH RQ6 PRN PRN Reason: Shortness of Breath Last Admin: 12/20/16 19:46 Dose: 1.25 mg Bumetanide (Bumex) 1 mg PO DAILY [facility] Last Admin: 12/20/16 09:56 Dose: 1 mg Collagenase (Santyl) 0 gm TOP DAILY [facility] Last Admin: 12/20/16 09:56 Dose: 1 applic Enalapril Maleate (Vasotec) 20 mg PO DAILY [facility] Last Admin: 12/20/16 09:56 Dose: 20 mg Epoetin Arturo (Procrit) 10,000 unit SC MWF [facility] Last Admin: 12/20/16 09:55 Dose: 10,000 unit Ferrous Sulfate (Feosol) 325 mg PO TID [facility] Last Admin: 12/20/16 17:45 Dose: 325 mg Cefepime HCl (Maxipime Iv 1 Gm Premix) 1 gm in 50 mls @ 100 mls/hr IVPB Q12H [facility] Last Admin: 12/20/16 12:27 Dose: 100 mls/hr Insulin Aspart (Novolog) 0 unit SC ACHS JOSIE PRN Reason: Protocol Last Admin: 12/20/16 22:11 Dose: Not Given Lactic Acid (Lac-Hydrin 12% Lotion (225 G)) 1 gm EXT BID [facility] Last Admin: 12/20/16 18:00 Dose: 1 applic Lorazepam (Ativan) 0.5 mg PO HS PRN PRN Reason: Anxiety Magnesium Oxide (Mag-Ox) 400 mg PO BID [facility] Last Admin: 12/20/16 17:42 Dose: 400 mg Multivitamins (Hexavitamin) 1 tab PO DAILY [facility] Last Admin: 12/20/16 09:56 Dose: 1 tab Nystatin (Nystop Topical Powder) 1 applic TOP BID [facility] Last Admin: 12/20/16 17:49 Dose: 1 applic Pantoprazole Sodium (Protonix Ec Tab) 40 mg PO DAILY [facility] Last Admin: 12/20/16 09:55 Dose: 40 mg Potassium Chloride (K-Dur 20 Meq Er Tab) 40 meq PO DAILY [facility] Last Admin: 12/20/16 09:55 Dose: 40 meq Tramadol HCl (Ultram) 50 mg PO Q4H PRN PRN Reason: Pain, moderate (4-7) Last Admin: 12/16/16 12:32 Dose: 50 mg Vitamin B Complex/Vitamin C (Berocca) 1 tab PO DAILY [facility] Last Admin: 12/20/16 09:56 Dose: 1 tab - Labs Labs: 12/20/16 07:31 12/20/16 07:31 - Constitutional Appears: Chronically Ill - Head Exam Head Exam: NORMOCEPHALIC - Eye Exam Eye Exam: Normal appearance - ENT Exam ENT Exam: Normal Exam - Neck Exam Neck Exam: Normal Inspection - Respiratory Exam Respiratory Exam: Decreased Breath Sounds - Cardiovascular Exam Cardiovascular Exam: REGULAR RHYTHM - GI/Abdominal Exam GI & Abdominal Exam: Hyperactive Bowel Sounds - Rectal Exam Rectal Exam: Deferred - Exam External exam: NORMAL EXTERNAL EXAM - Extremities Exam Extremities Exam: Pedal Edema - Back Exam Back Exam: NORMAL INSPECTION - Neurological Exam Neurological Exam: Oriented x3 - Psychiatric Exam Psychiatric exam: Depressed - Skin Skin Exam: Dry Assessment and Plan (1) Anemia Status: Acute (2) Dehydration Status: Acute (3) Myelodysplasia, high grade Status: Acute (4) Thrombocytopenia Status: Acute (5) Osteoarthritis Status: Acute (6) Heel ulcer Status: Acute (7) Acute on chronic diastolic (congestive) heart failure Status: Acute
[2016-12-21] MEDS: Cefepime IV 1 gm in Dextrose 1 GM/50 ML BAG IVPB SCH ×2 (01:17→13:15)
[2016-12-21] MEDS: (Novolog) Insulin Aspart, Recombinant 100 u/ml 10 ml vial SC SCH ×3 (07:53→16:30)
[2016-12-21] MEDS: Albuterol 0.042% Inhal Sol (1.25 mg/3 mL) UD INH PRN ×2 (08:53→19:42)
[2016-12-21] MEDS: Multiple Vitamins Tab PO SCH (11:22)
[2016-12-21] MEDS: Vitamin B Complex/Vitamin C Tab PO SCH (11:22)
[2016-12-21] MEDS: Magnesium Oxide 400 mg Tab UD PO SCH ×2 (11:22→18:00)
[2016-12-21] MEDS: Potassium Chloride 20 mEq ER Tab PO SCH (11:23)
[2016-12-21] MEDS: Ammonium Lactate 12% Lotion (225 g) EXT SCH ×2 (11:23→20:20)
[2016-12-21] MEDS: Pantoprazole 40 mg EC Tab PO SCH (11:23)
[2016-12-21] MEDS: Collagenase 250 Units/gm Ointment(30 gm) TOP SCH (11:24)
--- NOTE | 2016-12-21 12:47 | CP.PCM.PN ---
Subjective - Date & Time of Evaluation Date of Evaluation: 12/21/16 Time of Evaluation: 12:44 - Subjective Subjective: 76 year old female seen at bedside this morning with attending for right chronic heel ulcer. She states that today she is feeling much better. She has her offloading boots on her right foot She currently denies any v/f/c/sob/cp Objective - Vital Signs/Intake and Output Vital Signs (last 24 hours): Temp Pulse Resp BP Pulse Ox 97.3 F L 81 20 113/65 94 L 12/21/16 07:00 12/21/16 07:00 12/21/16 07:00 12/21/16 11:22 12/21/16 07:00 - Medications Medications: Current Medications Albuterol Sulfate (Albuterol 0.042% Inhal Tricia (1.25mg/3ml) Ud) 1.25 mg INH RQ6 PRN PRN Reason: Shortness of Breath Last Admin: 12/21/16 08:53 Dose: 1.25 mg Bumetanide (Bumex) 1 mg PO DAILY [facility] Last Admin: 12/21/16 11:23 Dose: 1 mg Collagenase (Santyl) 0 gm TOP DAILY [facility] Last Admin: 12/21/16 11:24 Dose: 1 applic Enalapril Maleate (Vasotec) 20 mg PO DAILY [facility] Last Admin: 12/21/16 11:22 Dose: 20 mg Epoetin Arturo (Procrit) 10,000 unit SC MWF [facility] Last Admin: 12/20/16 09:55 Dose: 10,000 unit Ferrous Sulfate (Feosol) 325 mg PO TID [facility] Last Admin: 12/21/16 11:23 Dose: 325 mg Cefepime HCl (Maxipime Iv 1 Gm Premix) 1 gm in 50 mls @ 100 mls/hr IVPB Q12H [facility] Last Admin: 12/21/16 01:17 Dose: 100 mls/hr Insulin Aspart (Novolog) 0 unit SC ACHS JOSIE PRN Reason: Protocol Last Admin: 12/21/16 12:08 Dose: 2 unit Lactic Acid (Lac-Hydrin 12% Lotion (225 G)) 1 gm EXT BID [facility] Last Admin: 12/21/16 11:23 Dose: 1 applic Magnesium Oxide (Mag-Ox) 400 mg PO BID [facility] Last Admin: 12/21/16 11:22 Dose: 400 mg Multivitamins (Hexavitamin) 1 tab PO DAILY [facility] Last Admin: 12/21/16 11:22 Dose: 1 tab Nystatin (Nystop Topical Powder) 1 applic TOP BID [facility] Last Admin: 12/21/16 11:24 Dose: 1 applic Pantoprazole Sodium (Protonix Ec Tab) 40 mg PO DAILY [facility] Last Admin: 12/21/16 11:23 Dose: 40 mg Potassium Chloride (K-Dur 20 Meq Er Tab) 40 meq PO DAILY [facility] Last Admin: 12/21/16 11:23 Dose: 40 meq Tramadol HCl (Ultram) 50 mg PO Q4H PRN PRN Reason: Pain, moderate (4-7) Last Admin: 12/16/16 12:32 Dose: 50 mg Vitamin B Complex/Vitamin C (Berocca) 1 tab PO DAILY [facility] Last Admin: 12/21/16 11:22 Dose: 1 tab - Labs Labs: 12/20/16 07:31 12/20/16 07:31 - Constitutional Appears: Non-toxic, No Acute Distress - Extremities Exam Additional comments: Right LE focused exam Vasc: DP and PT pulses non-palpable, CFT < 3 sec, temp unremarkable. Neuro: Protective sensation diminished, light touch sensation intact. Derm: Open ulceration noted to the plantar right heel measuring approximately 2 cm by 2 cm, with a fibrogranular base with subcutaenous tissue exposed out the ulcer. no drainage, no purulence, no probe to bone, no malodor noted. Ortho: Tenderness on palpation of right foot plantar ulceration, Decreased ROM to LE secondary to edema with weakness. - Neurological Exam Neurological Exam: Alert, Awake - Psychiatric Exam Psychiatric exam: Normal Affect, Normal Mood Assessment and Plan - Assessment and Plan (Free Text) Assessment: 76 year old female with right chronic plantar heel ulceration Plan: Patient examined and evaluated. Chart, labs, & vitals reviewed;afebrile Discussed with attending, Dr. Thompson Right heel dressed with santyl and DSD Multipodus boots applied to bilateral lower extremities for use while in bed to off-load heels. wound culture results-pseudomonas bone scan pending per primary team upon d/c daily dressing changes of santyl, DSD to right heel wound, compressive wraps to legs podiatry will continue to follow patient while in house
[2016-12-21 14:40] LABS: POTASSIUM 3.6 mmol/L (3.6-5.2)
[2016-12-21 15:20] LABS: BASO # 0.2 K/uL (0.0-0.2); BASO % 1.4 % (0.0-2.0); EOS % 0.1 % (0.0-4.0); HEMATOCRIT 29.4 % (34.0-47.0); LYMPH # 2.1 K/uL (1.0-4.3); LYMPH % 15.8 % (20.0-40.0); MEAN CORPUSCULAR HEMOGLOBIN 30.7 pg (27.0-31.0); MEAN CORPUSCULAR HGB CONC 30.7 g/dL (33.0-37.0); MEAN PLATELET VOLUME 10.5 fL (7.2-11.7); MONO # 4.1 K/uL (0.0-0.8); MONO % 31.2 % (0.0-10.0); NRBC % 5.3 % (0.0-2.0); PLATELET COUNT 46 K/uL (130-400); RED CELL DISTRIBUTION WIDTH 25.6 % (11.5-14.5); WHITE BLOOD COUNT 13.1 K/uL (4.8-10.8)
[2016-12-21 15:23] LABS: CARCINOEMBRYONIC ANTIGEN 5.7 ng/mL (0-3.0)
[2016-12-21 15:39] LABS: NEUTROPHIL 76 % (50-75); TOTAL CELLS COUNTED 100
[2016-12-21 16:30] VITALS: BP 119/48; PULSE 65; TEMP 97.5; O2SAT 93
--- NOTE | 2016-12-21 16:31 | NM ---
PROCEDURE: THREE-PHASE NUCLEAR BONE SCAN RIGHT FOOT HISTORY: r/o OM COMPARISON: Right foot radiographs 12/15/2016 TECHNIQUE: Following administration of 24.2 miCu of Tc MDP multiplanar whole body images were obtained. FINDINGS: Dynamic phase images demonstrate increased activity at the right heel region/calcaneus alone. This activity persists into the immediate and de delayed static images with the findings compatible with osteomyelitis though other etiologies are possible. Clinically correlate further. IMPRESSION: Persistent abnormal uptake is appreciate on all 3 phases at the right calcaneus posteriorly and inferiorly, suggesting osteomyelitis though other etiologies are possible. Clinically correlate further.
--- NOTE | 2016-12-21 17:58 | CP.PCM.PN ---
Subjective - Date & Time of Evaluation Date of Evaluation: 12/21/16 Time of Evaluation: 13:59 - Subjective Subjective: Awake, alert, responsive, no acute distress. Objective - Vital Signs/Intake and Output Vital Signs (last 24 hours): Temp Pulse Resp BP Pulse Ox 97.5 F L 65 20 119/48 L 93 L 12/21/16 16:29 12/21/16 16:29 12/21/16 16:29 12/21/16 16:29 12/21/16 16:29 Intake and Output: 12/21/16 12/21/16 06:59 18:59 Intake Total 450 Balance 450 - Medications Medications: Current Medications Albuterol Sulfate (Albuterol 0.042% Inhal Tricia (1.25mg/3ml) Ud) 1.25 mg INH RQ6 PRN PRN Reason: Shortness of Breath Last Admin: 12/21/16 08:53 Dose: 1.25 mg Bumetanide (Bumex) 1 mg PO DAILY [facility] Last Admin: 12/21/16 11:23 Dose: 1 mg Collagenase (Santyl) 0 gm TOP DAILY [facility] Last Admin: 12/21/16 11:24 Dose: 1 applic Enalapril Maleate (Vasotec) 20 mg PO DAILY [facility] Last Admin: 12/21/16 11:22 Dose: 20 mg Epoetin Arturo (Procrit) 10,000 unit SC MWF [facility] Last Admin: 12/20/16 09:55 Dose: 10,000 unit Ferrous Sulfate (Feosol) 325 mg PO TID [facility] Last Admin: 12/21/16 13:15 Dose: 325 mg Cefepime HCl (Maxipime Iv 1 Gm Premix) 1 gm in 50 mls @ 100 mls/hr IVPB Q12H [facility] Last Admin: 12/21/16 13:15 Dose: 100 mls/hr Insulin Aspart (Novolog) 0 unit SC ACHS JOSIE PRN Reason: Protocol Last Admin: 12/21/16 12:08 Dose: 2 unit Lactic Acid (Lac-Hydrin 12% Lotion (225 G)) 1 gm EXT BID [facility] Last Admin: 12/21/16 11:23 Dose: 1 applic Magnesium Oxide (Mag-Ox) 400 mg PO BID [facility] Last Admin: 12/21/16 11:22 Dose: 400 mg Multivitamins (Hexavitamin) 1 tab PO DAILY [facility] Last Admin: 12/21/16 11:22 Dose: 1 tab Nystatin (Nystop Topical Powder) 1 applic TOP BID [facility] Last Admin: 12/21/16 11:24 Dose: 1 applic Pantoprazole Sodium (Protonix Ec Tab) 40 mg PO DAILY [facility] Last Admin: 12/21/16 11:23 Dose: 40 mg Potassium Chloride (K-Dur 20 Meq Er Tab) 40 meq PO DAILY [facility] Last Admin: 12/21/16 11:23 Dose: 40 meq Tramadol HCl (Ultram) 50 mg PO Q4H PRN PRN Reason: Pain, moderate (4-7) Last Admin: 12/16/16 12:32 Dose: 50 mg Vitamin B Complex/Vitamin C (Berocca) 1 tab PO DAILY [facility] Last Admin: 12/21/16 11:22 Dose: 1 tab - Labs Labs: 12/21/16 15:05 12/21/16 14:20 Assessment and Plan - Assessment and Plan (Free Text) Assessment: Patient is awake, responsive, no fever. Bone scan tested positive. Will discharge to [facility] for total of 6 weeks iv antibiotic via port-a-cath. d/w DR Leon and DR Prabhakar.
--- NOTE | 2016-12-21 19:14 | CP.PCM.PN ---
Subjective - Date & Time of Evaluation Date of Evaluation: 12/21/16 Time of Evaluation: 09:00 - Subjective Subjective: bone scan neg consider cont iv rx 14-21 days with podiatry follow up Objective - Vital Signs/Intake and Output Vital Signs (last 24 hours): Temp Pulse Resp BP Pulse Ox 97.5 F L 65 20 119/48 L 93 L 12/21/16 16:29 12/21/16 16:29 12/21/16 16:29 12/21/16 16:29 12/21/16 16:29 Intake and Output: 12/21/16 12/22/16 18:59 06:59 Intake Total 450 Balance 450 - Medications Medications: Current Medications Albuterol Sulfate (Albuterol 0.042% Inhal Tricia (1.25mg/3ml) Ud) 1.25 mg INH RQ6 PRN PRN Reason: Shortness of Breath Last Admin: 12/21/16 08:53 Dose: 1.25 mg Bumetanide (Bumex) 1 mg PO DAILY [facility] Last Admin: 12/21/16 11:23 Dose: 1 mg Collagenase (Santyl) 0 gm TOP DAILY [facility] Last Admin: 12/21/16 11:24 Dose: 1 applic Enalapril Maleate (Vasotec) 20 mg PO DAILY [facility] Last Admin: 12/21/16 11:22 Dose: 20 mg Epoetin Arturo (Procrit) 10,000 unit SC MWF [facility] Last Admin: 12/20/16 09:55 Dose: 10,000 unit Ferrous Sulfate (Feosol) 325 mg PO TID [facility] Last Admin: 12/21/16 13:15 Dose: 325 mg Cefepime HCl (Maxipime Iv 1 Gm Premix) 1 gm in 50 mls @ 100 mls/hr IVPB Q12H [facility] Last Admin: 12/21/16 13:15 Dose: 100 mls/hr Insulin Aspart (Novolog) 0 unit SC ACHS JOSIE PRN Reason: Protocol Last Admin: 12/21/16 12:08 Dose: 2 unit Lactic Acid (Lac-Hydrin 12% Lotion (225 G)) 1 gm EXT BID [facility] Last Admin: 12/21/16 11:23 Dose: 1 applic Magnesium Oxide (Mag-Ox) 400 mg PO BID [facility] Last Admin: 12/21/16 11:22 Dose: 400 mg Multivitamins (Hexavitamin) 1 tab PO DAILY [facility] Last Admin: 12/21/16 11:22 Dose: 1 tab Nystatin (Nystop Topical Powder) 1 applic TOP BID [facility] Last Admin: 12/21/16 11:24 Dose: 1 applic Pantoprazole Sodium (Protonix Ec Tab) 40 mg PO DAILY [facility] Last Admin: 12/21/16 11:23 Dose: 40 mg Potassium Chloride (K-Dur 20 Meq Er Tab) 40 meq PO DAILY [facility] Last Admin: 12/21/16 11:23 Dose: 40 meq Tramadol HCl (Ultram) 50 mg PO Q4H PRN PRN Reason: Pain, moderate (4-7) Last Admin: 12/16/16 12:32 Dose: 50 mg Vitamin B Complex/Vitamin C (Berocca) 1 tab PO DAILY [facility] Last Admin: 12/21/16 11:22 Dose: 1 tab - Labs Labs: 12/21/16 15:05 12/21/16 14:20 Assessment and Plan (1) Osteomyelitis Status: Acute (2) Osteomyelitis Status: Acute (3) Acute on chronic diastolic (congestive) heart failure Status: Acute (4) Dehydration Status: Acute (5) Heel ulcer Status: Acute (6) Myelodysplasia, high grade Status: Acute (7) Thrombocytopenia Status: Acute (8) Anemia Status: Acute (9) Osteoarthritis Status: Acute
--- NOTE | 2016-12-22 09:32 | CP.PCM.DIS ---
Provider - Provider Date of Admission: 12/13/16 16:56 Attending physician: Junito Foster MD Time Spent in preparation of Discharge (in minutes): 24 Diagnosis - Discharge Diagnosis (1) Anemia Status: Acute (2) Dehydration Status: Acute (3) Myelodysplasia, high grade Status: Acute (4) Thrombocytopenia Status: Acute (5) Osteoarthritis Status: Acute Priority: Medium (6) Heel ulcer Status: Acute (7) Acute on chronic diastolic (congestive) heart failure Status: Acute (8) Osteomyelitis Status: Acute Hospital Course - Lab Results Lab Results: Micro Results 12/15/16 14:07 Foot - Right Gram Stain - Final 12/15/16 14:07 Foot - Right Wound Culture - Final Pseudomonas Aeruginosa 12/13/16 17:00 Urine Urine Culture - Final No Growth (<1,000 CFU/ML) Most Recent Lab Values WBC 13.1 K/uL (4.8-10.8) H 12/21/16 15:05 RBC 2.94 Mil/uL (3.80-5.20) L 12/21/16 15:05 Hgb 9.0 g/dL (11.0-16.0) L 12/21/16 15:05 Hct 29.4 % (34.0-47.0) L 12/21/16 15:05 MCV 100.0 fL (81.0-99.0) H 12/21/16 15:05 MCH 30.7 pg (27.0-31.0) 12/21/16 15:05 MCHC 30.7 g/dL (33.0-37.0) L 12/21/16 15:05 RDW 25.6 % (11.5-14.5) H 12/21/16 15:05 Plt Count 46 K/uL (130-400) L 12/21/16 15:05 MPV 10.5 fL (7.2-11.7) 12/21/16 15:05 Neut % (Auto) 51.5 % (50.0-75.0) 12/21/16 15:05 Lymph % (Auto) 15.8 % (20.0-40.0) L 12/21/16 15:05 [place] % (Auto) 31.2 % (0.0-10.0) H 12/21/16 15:05 Eos % (Auto) 0.1 % (0.0-4.0) 12/21/16 15:05 Baso % (Auto) 1.4 % (0.0-2.0) 12/21/16 15:05 Neut # 6.7 K/uL (1.8-7.0) 12/21/16 15:05 Lymph # 2.1 K/uL (1.0-4.3) 12/21/16 15:05 [place] # 4.1 K/uL (0.0-0.8) H 12/21/16 15:05 Eos # 0.0 K/uL (0.0-0.7) 12/21/16 15:05 Baso # 0.2 K/uL (0.0-0.2) 12/21/16 15:05 Neutrophils % (Manual) 76 % (50-75) H 12/21/16 15:05 Band Neutrophils % 2 % (0-2) 12/20/16 07:31 Lymphocytes % (Manual) 16 % (20-40) L 12/21/16 15:05 Monocytes % (Manual) 8 % (0-10) 12/21/16 15:05 Nucleated RBC % 4 % (0-0) H 12/20/16 07:31 Platelet Estimate Normal (NORMAL) 12/21/16 15:05 Large Platelets Present 12/17/16 08:20 Giant Platelets Present 12/15/16 11:58 Polychromasia Slight 12/19/16 11:08 Hypochromasia (manual) Slight 12/21/16 15:05 Poikilocytosis (manual Slight 12/21/16 15:05 Anisocytosis (manual) Slight 12/21/16 15:05 Microcytosis (manual) Slight 12/20/16 07:31 Macrocytosis (manual) Slight 12/20/16 07:31 Spherocytes Slight 12/17/16 08:20 Target Cells Slight 12/20/16 07:31 Tear Drop Cells Slight 12/17/16 08:20 Ovalocytes Slight 12/21/16 15:05 [place] Cells Slight 12/21/16 15:05 Schistocytes Slight 12/17/16 08:20 Sodium 140 mmol/L (132-148) 12/21/16 14:20 Potassium 3.6 mmol/L (3.6-5.2) 12/21/16 14:20 Chloride 101 mmol/L (98-107) 12/21/16 14:20 Carbon Dioxide 29 mmol/L (22-30) 12/21/16 14:20 Anion Gap 12 (10-20) 12/20/16 07:31 BUN 28 mg/dL (7-17) H 12/21/16 14:20 Creatinine 0.9 MG/DL (0.7-1.2) 12/20/16 07:31 Est GFR ( Amer) > 60 12/20/16 07:31 Est GFR (Non-Af Amer) > 60 12/20/16 07:31 POC Glucose (mg/dL) 181 mg/dL (65-110) H 12/21/16 20:59 Random Glucose 133 mg/dL (65-105) H 12/20/16 07:31 Calcium 9.3 mg/dl (8.6-10.4) 12/20/16 07:31 Magnesium 1.5 mg/dL (1.6-2.3) L 12/13/16 16:19 Total Bilirubin 0.9 mg/dL (0.2-1.3) 12/19/16 06:52 AST 16 U/L (14-36) 12/19/16 06:52 ALT 28 U/L (9-52) 12/19/16 06:52 Alkaline Phosphatase 122 U/L (38-126) 12/19/16 06:52 NT-Pro-B Natriuret Pep 2430 pg/mL (0-900) H 12/15/16 07:23 Total Protein 6.1 g/dL (6.3-8.3) L 12/19/16 06:52 Albumin 1.8 g/dL (3.5-5.0) L 12/19/16 06:52 Globulin 4.3 gm/dL (2.2-3.9) H 12/19/16 06:52 Albumin/Globulin Ratio 0.4 (1.0-2.1) L 12/19/16 06:52 Carcinoembryonic Ag 5.7 ng/mL (0-3.0) H 12/21/16 14:20 CA 125 Antigen 368 U/mL (0-35) H 12/20/16 07:31 Urine Color Yellow (YELLOW) 12/13/16 16:34 Urine Clarity Hazy (Clear) 12/13/16 16:34 Urine pH 5.0 (5.0-8.0) 12/13/16 16:34 Ur Specific [place] 1.027 (1.003-1.030) 12/13/16 16:34 Urine Protein 1+ mg/dL (NEGATIVE) H 12/13/16 16:34 Urine Glucose (UA) Normal mg/dL (Normal) 12/13/16 16:34 Urine Ketones Negative mg/dL (NEGATIVE) 12/13/16 16:34 Urine Blood 2+ (NEGATIVE) H 12/13/16 16:34 Urine Nitrate Negative (NEGATIVE) 12/13/16 16:34 Urine Bilirubin Negative (NEGATIVE) 12/13/16 16:34 Urine Urobilinogen 2.0 mg/dL (0.2-1.0) H 12/13/16 16:34 Ur Leukocyte Esterase Neg Svetlana/uL (Negative) 12/13/16 16:34 Urine WBC (Auto) 10 /hpf (0-5) H 12/13/16 16:34 Urine RBC (Auto) 31 /hpf (0-3) H 12/13/16 16:34 Ur Squamous Epith Cells 9 /hpf (0-5) H 12/13/16 16:34 Urine Bacteria Rare (<OCC) 12/13/16 16:34 Blood Type O NEGATIVE 12/15/16 18:13 Antibody Screen Negative 12/15/16 18:13 Discharge Exam - Head Exam Head Exam: NORMOCEPHALIC - Eye Exam Eye Exam: Normal appearance Pupil Exam: NORMAL ACCOMODATION - ENT Exam ENT Exam: Normal Exam - Neck Exam Neck exam: Normal Inspection - Respiratory Exam Respiratory Exam: Decreased Breath Sounds - Cardiovascular Exam Cardiovascular Exam: REGULAR RHYTHM - GI/Abdominal Exam GI & Abdominal Exam: Hyperactive Bowel Sounds - Rectal Exam Rectal Exam: Deferred - Exam External exam: NORMAL EXTERNAL EXAM - Extremities Exam Extremities exam: joint swelling - Back Exam Back exam: NORMAL INSPECTION - Neurological Exam Neurological exam: Oriented x3 - Psychiatric Exam Psychiatric exam: Depressed - Skin Skin Exam: Dry Discharge Plan - Discharge Medications Prescriptions: Cefepime 1gm in NS 100ml [Maxipime 1gm] 1 gm IVPB Q12H #28 bag - Follow Up Plan Condition: FAIR Disposition: REHAB FACILITY/REHAB UNIT Instructions: Cefepime (By injection), Dehydration (DC), Myelodysplastic Syndromes (DC), Weakness (ED), Anemia (DC), Thrombocytopenia (DC) Additional Instructions: Discharge to [facility] as per Dr. Foster. IV Cefepime 1gm q12H x [address] Prabhakar via port a cath. Follow up with podiatry: Right foot care as ordered. CBC, BMP q Week.
== END 2016-12-21 21:20 | DRG 808 ==
LOC: C.ER 15:28 → C.9E 16:56 → C.3T 20:33
PROVIDERS: ADMIT Internal Medicine; ATTEND Internal Medicine
PROC: 30233R1 Transfusion of Nonautologous Platelets into Peripheral Vein, Percutaneous Approach (ICD-10-PCS; principal; 2016-12-18)
DX: D61.818 Other pancytopenia (principal); I50.33 Acute on chronic diastolic (congestive) heart failure; E11.69 Type 2 diabetes mellitus with other specified complication; L97.419 Non-pressure chronic ulcer of right heel and midfoot with unspecified severity; E11.621 Type 2 diabetes mellitus with foot ulcer; E86.0 Dehydration; M86.9 Osteomyelitis, unspecified; D46.9 Myelodysplastic syndrome, unspecified; J43.9 Emphysema, unspecified; I73.9 Peripheral vascular disease, unspecified; I89.0 Lymphedema, not elsewhere classified; M19.90 Unspecified osteoarthritis, unspecified site; L97.519 Non-pressure chronic ulcer of other part of right foot with unspecified severity; I11.0 Hypertensive heart disease with heart failure; Z87.01 Personal history of pneumonia (recurrent)

== ENCOUNTER 2016-12-29 18:11 | Inpatient (IN) | payer MEDICARE, BC ==
[2016-12-29 18:12] VITALS: BMI 47.0
[2016-12-29 19:36] LABS: BASO % 0.5 % (0.0-2.0); EOS % 0.1 % (0.0-4.0); HEMATOCRIT 27.3 % (34.0-47.0); LYMPH # 2.4 K/uL (1.0-4.3); LYMPH % 39.8 % (20.0-40.0); MEAN CELL VOLUME 100.3 fL (81.0-99.0); MEAN CORPUSCULAR HEMOGLOBIN 31.4 pg (27.0-31.0); MEAN CORPUSCULAR HGB CONC 31.4 g/dL (33.0-37.0); MEAN PLATELET VOLUME 4.6 fL (7.2-11.7); MONO # 1.5 K/uL (0.0-0.8); MONO % 24.3 % (0.0-10.0); NRBC % 1.1 % (0.0-2.0); RED CELL DISTRIBUTION WIDTH 25.7 % (11.5-14.5); WHITE BLOOD COUNT 6.1 K/uL (4.8-10.8)
[2016-12-29 19:38] LABS: PLATELET COUNT 7 K/uL (130-400)
[2016-12-29 19:40] LABS: INR 1.1
--- NOTE | 2016-12-29 19:46 | C.PDOC ---
History Of Present Illness Patient is a 76 year old woman sent from [facility] for abnormal labs of thrombocytopenia (12,000). Pt denies any complaints. Time Seen by Provider: 12/29/16 18:35 Chief Complaint (Nursing): Abnormal Labs History Per: Patient History/Exam Limitations: no limitations Current Symptoms Are (Timing): Still Present Past Medical History Reviewed: Historical Data, Nursing Documentation, Vital Signs Vital Signs: Last Vital Signs Temp 98 F 12/29/16 20:52 Pulse 91 H 12/29/16 20:52 Resp 17 12/29/16 20:52 BP 112/62 12/29/16 20:52 Pulse Ox 100 12/29/16 21:38 - Medical History PMH: Anemia, Anxiety, Arthritis, Emphysema, HTN, Peripheral Edema, Pneumonia Denies: Chronic Kidney Disease Surgical History: Cholecystectomy (in 2010) - [facility] Procedures CENTRAL VENOUS CATHETER PLACEMENT WITH GUIDANCE (02/16/14) FLUOROSCOPY OF SUPERIOR VENA CAVA, GUIDANCE (10/12/16) INSERTION OF INFUSION DEV INTO SUP VENA CAVA, PERC APPROACH (10/12/16) INSERTION OF VAD INTO CHEST SUBCU/FASCIA, OPEN APPROACH (10/12/16) PACKED CELL TRANSFUSION (02/16/14) TRANSFUSE NONAUT PLATELETS IN PERIPH VEIN, PERC (12/13/16) TRANSFUSE NONAUT RED BLOOD CELLS IN PERIPH VEIN, PERC (09/06/16) VACCINATION NEC (02/16/14) Family History: States: Unknown Family Hx - Social History Hx Tobacco Use: No Hx Alcohol Use: No Hx Substance Use: No - Immunization History Hx Tetanus Toxoid Vaccination: No Hx Influenza Vaccination: Yes Hx Pneumococcal Vaccination: Yes Review Of Systems Constitutional: Negative for: Fever, Chills, Sweats Cardiovascular: Negative for: Chest Pain, Palpitations Respiratory: Negative for: Shortness of Breath, Wheezing Gastrointestinal: Negative for: Nausea, Vomiting, Diarrhea Psych: Negative for: Anxiety, Depression, Suicidal ideation Physical Exam - Physical Exam Appears: Non-toxic Skin: Normal Color, Warm, Dry, Other (LE lichenification) Head: Atraumatic, Normacephalic Oral Mucosa: Moist Neck: Normal Chest: Symmetrical Cardiovascular: Murmur (systolic murmur) Respiratory: Normal Breath Sounds (clear bilaterally), No Rales, No Rhonchi, No Wheezing Gastrointestinal/Abdominal: Normal Exam Extremity: Tenderness Neurological/Psych: Oriented x3 Gait: Steady ED Course And Treatment - Laboratory Results Result Diagrams: 12/29/16 19:29 12/29/16 19:29 Lab Interpretation: Abnormal ECG: Interpreted By Me, Viewed By Me ECG Rhythm: Sinus Rhythm ECG Interpretation: Normal Rate From EC O2 Sat by Pulse Oximetry: 100 Pulse Ox Interpretation: Normal - Radiology CXR: Interpreted by Me CXR Interpretation: Yes: Infiltrates (resolving L c/w 12/14, no acute PNA) Progress Note: blood work, EKG, CXR, urine C&S ordered. Reevaluation Time: 19:47 Reassessment Condition: Unchanged - Physician Consult Information Outcome Of Conversation: 1939: d/w Dr. Foster- PMDagmar ok to admit, requests consult with Dr. Vasquez. 1944: call to Dr. Vasquez Medical Decision Making Medical Decision Making: acute on chronic thrombocytopenia, h/o MDS, now plts 7 from 12 in [facility] earlier today Empirically tx plts under 10, Heme/Onc consulting. Disposition Doctor Will See Patient In The: Hospital Counseled Patient/Family Regarding: Studies Performed, Diagnosis - Disposition Disposition: HOSPITALIZED Disposition Time: 19:48 Condition: GOOD - Clinical Impression Clinical Impression: Thrombocytopenia - Scribe Statement Ary Urena All medical record entries made by the Scribe were at my direction and personally dictated by me. I have reviewed the chart and agree that the record accurately reflects my personal performance of the history, physical exam, medical decision making, and the department course for this patient. I have also personally directed, reviewed, and agree with the discharge instructions and disposition.
[2016-12-29 19:47] LABS: CHLORIDE 104 mmol/L (98-107); POTASSIUM 4.5 mmol/L (3.6-5.2); SODIUM 139 mmol/L (132-148)
[2016-12-29 19:49] LABS: ALB/GLOB RATIO 0.5 (1.0-2.1); ALKALINE PHOSPHATASE 178 U/L (38-126); AST/SGOT 28 U/L (14-36); CARBON DIOXIDE 31 mmol/L (22-30); GFR AFRICAN-AMERICAN 58
[2016-12-29 19:50] LABS: ALT/SGPT 46 U/L (9-52); BLOOD UREA NITROGEN 37 mg/dL (7-17); CALCIUM 9.5 mg/dl (8.6-10.4); GLUCOSE,RANDOM 117 mg/dL (65-105)
[2016-12-29 20:50] LABS: NEUTROPHIL 42 % (50-75); TOTAL CELLS COUNTED 100
[2016-12-29 20:51] LABS: RBC URINE 4 /hpf (0-3); URINE BACTERIA MANY (<OCC); URINE BILIRUBIN NEGATIVE (NEGATIVE); URINE COLOR Yellow (YELLOW); URINE GLUCOSE (UA) NORMAL (Normal); URINE KETONE NEGATIVE (NEGATIVE); URINE PROTEIN 1+ mg/dL (NEGATIVE); URINE UROBILINOGEN NORMAL mg/dL (0.2-1.0); WBC URINE 57 /hpf (0-5)
[2016-12-29 20:53] LABS: URINE BLOOD 1+ (NEGATIVE)
[2016-12-29 20:54] LABS: URINE LEUKOCYTE ESTERASE 3+ Leu/uL (Negative)
[2016-12-29] MEDS ORDERED: Magnesium Hydroxide Susp 30 ml UD PO PRN (22:41)
[2016-12-29] MEDS ORDERED: Cefepime IV 1 gm in Dextrose 1 GM/50 ML BAG IVPB SCH (23:00)
[2016-12-29] MEDS ORDERED: Cefepime 1 GM in Sodium Chloride 0.9% 100 ML IVPB SCH (23:15)
[2016-12-30] MEDS ORDERED: MethylPREDNISolone 40 mg Vial IVP ONE ×4 (01:30→20:45)
[2016-12-30] MEDS: Albuterol 0.042% Inhal Sol (1.25 mg/3 mL) UD INH SCH ×4 (02:09→22:26)
[2016-12-30 08:41] LABS: HEMATOCRIT 25.7 % (34.0-47.0); MEAN CELL VOLUME 101.6 fL (81.0-99.0); MEAN CORPUSCULAR HEMOGLOBIN 31.4 pg (27.0-31.0); MEAN CORPUSCULAR HGB CONC 30.9 g/dL (33.0-37.0); MEAN PLATELET VOLUME 9.4 fL (7.2-11.7); PLATELET COUNT 80 K/uL (130-400); RED CELL DISTRIBUTION WIDTH 25.4 % (11.5-14.5); WHITE BLOOD COUNT 6.2 K/uL (4.8-10.8)
[2016-12-30] MEDS: Pantoprazole 40 mg EC Tab PO SCH (10:46)
[2016-12-30] MEDS: Potassium Chloride 20 mEq ER Tab PO SCH (10:46)
--- NOTE | 2016-12-30 10:55 | CP.PCM.HP ---
History of Present Illness - History of Present Illness History of Present Illness: 76 [facility] mild confusion, shortness of breath, and a platlet count of 7,000. Patient was evaluated and admission was advised. Platlet transfusion was immmediately ordered and hematology consult was requested. Past history includes severe anemia, myloproliferative disorder, congestive heart fialure, emphysema, thrombophlebitis, degenerative arthritis, and diabetes mellitus. Present on Admission - Present on Admission Any Indicators Present on Admission: Yes History of DVT/PE: Yes History of Uncontrolled Diabetes: No Urinary Catheter: No Decubitus Ulcer Present: No History Surgical Site Infection Following: None Review of Systems - Constitutional Constitutional: Fatigue, Weakness - Cardiovascular Cardiovascular: Dyspnea on Exertion - Respiratory Respiratory: Dyspnea on Exertion - Gastrointestinal Gastrointestinal: Diarrhea - Reproductive: Female Reproductive:Female: Post Menopausal - Menstruation Menstruation: Post Menopausal - Musculoskeletal Musculoskeletal: Arthralgias - Integumentary Integumentary: Dry Skin - Neurological Neurological: Confusion - Psychiatric Psychiatric: Depression - Endocrine Endocrine: Fatigue Past Patient History - Infectious Disease Hx of Infectious Diseases: None - Tetanus Immunizations Tetanus Immunization: Unknown, Up to Date - Past Medical History & Family History Past Medical History?: Yes - Past Social History Smoking Status: Never Smoked Chewing Tobacco Use: No Cigar Use: No - CARDIAC Hx Congestive Heart Failure: Yes Hx Heart Murmur: Yes Hx Hypertension: Yes Hx Peripheral Edema: Yes - PULMONARY Hx Emphysema: Yes Hx Pneumonia: Yes - NEUROLOGICAL Hx Neurological Disorder: No Hx Vertigo: Yes - HEENT Hx HEENT Problems: No - RENAL Hx Chronic Kidney Disease: No - ENDOCRINE/METABOLIC Hx Diabetes Mellitus Type 2: Yes - HEMATOLOGICAL/ONCOLOGICAL Hx Blood Disorders: Yes Hx Anemia: Yes Hx Blood Transfusions: Yes - INTEGUMENTARY Hx Dermatological Problems: No Other/Comment: BLE w/ cauliflowered skin - MUSCULOSKELETAL/RHEUMATOLOGICAL Hx Arthritis: Yes Hx Back Pain: Yes Hx Degenerative Joint Disease: Yes Hx Falls: No Hx Osteomyelitis: Yes Hx Unsteady Gait: Yes (uses cane/walker at home) - GASTROINTESTINAL Hx Gastrointestinal Disorders: No Hx Gastritis: Yes Hx Hemorrhoids: Yes - GENITOURINARY/GYNECOLOGICAL Hx Genitourinary Disorders: No - PSYCHIATRIC Hx Anxiety: Yes Hx Depression: Yes Hx Substance Use: No - SURGICAL HISTORY Hx Cholecystectomy: Yes (in 2010) Hx Tonsillectomy: Yes (8yrs old) - ANESTHESIA Hx Anesthesia: Yes Hx Anesthesia Reactions: No Hx Malignant Hyperthermia: No Meds Allergies/Adverse Reactions: Allergies Allergy/AdvReac Type Severity Reaction Status Date / Time Gadolinium-Containing Allergy ITCHING Verified 12/13/16 15:45 Contrast Medi Physical Exam - Constitutional Appears: Chronically Ill - Head Exam Head Exam: ATRAUMATIC - Eye Exam Eye Exam: PERRL Pupil Exam: NORMAL ACCOMODATION - ENT Exam ENT Exam: Normal Exam - Neck Exam Neck exam: Positive for: Normal Inspection - Respiratory Exam Respiratory Exam: Decreased Breath Sounds - Cardiovascular Exam Cardiovascular Exam: Systolic Murmur - GI/Abdominal Exam GI & Abdominal Exam: Hyperactive Bowel Sounds - Rectal Exam Rectal Exam: Deferred - Exam External exam: NORMAL EXTERNAL EXAM - Back Exam Back exam: CVA tenderness (R) - Neurological Exam Neurological exam: CN II-XII Intact - Psychiatric Exam Psychiatric exam: Depressed - Skin Skin Exam: Dry Results - Vital Signs Recent Vital Signs: Last Vital Signs Temp 97.8 F 12/30/16 07:05 Pulse 83 12/30/16 07:05 Resp 20 12/30/16 07:05 BP 124/57 L 12/30/16 07:05 Pulse Ox 94 L 12/30/16 07:05 - Labs Result Diagrams: 12/30/16 08:18 12/29/16 19:29 Labs: Laboratory Results - last 24 hr 12/29/16 12/29/16 12/30/16 20:38 21:40 07:19 WBC RBC Hgb Hct MCV MCH MCHC RDW Plt Count MPV POC Glucose (mg/dL) 135 H 98 Urine Color Yellow Urine Clarity Hazy Urine pH 6.0 Ur Specific [place] 1.014 Urine Protein 1+ H Urine Glucose (UA) Normal Urine Ketones Negative Urine Blood 1+ H Urine Nitrate Negative Urine Bilirubin Negative Urine Urobilinogen Normal Ur Leukocyte Esterase 3+ H Urine WBC (Auto) 57 H Urine RBC (Auto) 4 H Ur Squamous Epith Cells < 1 Urine Bacteria Many H Hyaline Casts 11-20 H 12/30/16 08:18 WBC 6.2 RBC 2.53 L Hgb 7.9 L Hct 25.7 L MCV 101.6 H MCH 31.4 H MCHC 30.9 L RDW 25.4 H Plt Count 80 L D MPV 9.4 POC Glucose (mg/dL) Urine Color Urine Clarity Urine pH Ur Specific [place] Urine Protein Urine Glucose (UA) Urine Ketones Urine Blood Urine Nitrate Urine Bilirubin Urine Urobilinogen Ur Leukocyte Esterase Urine WBC (Auto) Urine RBC (Auto) Ur Squamous Epith Cells Urine Bacteria Hyaline Casts Assessment & Plan (1) Emphysema (subcutaneous) resulting from procedure Status: Acute (2) Myeloproliferative disease Status: Acute (3) Thrombocytopenia Status: Acute (4) Anemia Status: Acute Priority: High (5) Osteoarthritis Status: Acute Priority: Medium (6) Peripheral edema Status: Acute (7) Thrombophlebitis Status: Acute Priority: Medium
--- NOTE | 2016-12-30 11:20 | RAD ---
PROCEDURE: CHEST RADIOGRAPH, 1 VIEW HISTORY: SOB COMPARISON: Portable chest 12/18/2016. FINDINGS: Right-sided life port catheter unchanged in position. LUNGS: Diminished bilateral infiltrates are identified with limited residual noted at the medial right lung base. Significant residuals in the left mid and inferior lung zones with some improvement in the periphery. PLEURA: No right pleural effusion or pneumothorax. Trace of pleural effusion not excluded. CARDIOVASCULAR: Cardiac silhouette appears obscured. No pulmonary vascular derangement. OSSEOUS STRUCTURES: No significant abnormalities. VISUALIZED UPPER ABDOMEN: Normal. OTHER FINDINGS: None. IMPRESSION: Improved bilateral infiltrates, particularly in the right side with significant residual remaining at the medial right lung base well as mid to inferior left lung zones.
[2016-12-30 12:31] LABS: BASO % 1.4 % (0.0-2.0); EOS % 0.3 % (0.0-4.0); MONO % 27.7 % (0.0-10.0); NRBC % 0.5 % (0.0-2.0)
[2016-12-30 12:32] LABS: BASO # 0.1 K/uL (0.0-0.2); LYMPH # 2.1 K/uL (1.0-4.3); MONO # 1.7 K/uL (0.0-0.8)
[2016-12-30 12:37] LABS: TOTAL CELLS COUNTED 100
[2016-12-30 12:38] LABS: NEUTROPHIL 50 % (50-75)
[2016-12-30] MEDS ORDERED: Home Med 1 UNIT (Cefepime 1gm In Ns 100ml [Maxipime 1gm] 1 GM) IVPB SCH (13:15)
[2016-12-30 13:17] LABS: ABG ALLEN TEST POS; ARTERIAL BLOOD HGB O2 SAT 95.3 % (95.0-98.0); CARBOXYHEMOGLOBIN 2.7 % (0.5-1.5); DRAW SITE RR; HHB -0.5 % (0.0-5.0); METHEMOGLOBIN 2.4 % (0.0-3.0)
--- NOTE | 2016-12-30 13:46 | CP.PCM.CON ---
History of Present Illness - History of Present Illness History of Present Illness: HPI: 75F presented sent from [facility] with sob and weakness. found to have low platlets given transfusion of plt called for pulmonary eval for sob cxr showing edema changes now had sob low spo2 PMH: Anemia, thrombocytopenia, DJD, DM, CAD, myelodysplasia and s/o transfusion PSH: IVC filter, Sarita SH: No tobacco, EtOH or Drug use All: NKDA Meds: See MAR, on Coumadin o/e Temp Pulse Resp BP Pulse Ox 97.8 F 68 20 128/64 94 L 12/30/16 07:05 12/30/16 07:48 12/30/16 07:05 12/30/16 10:46 12/30/16 07:05 chest good air entry regular hs abd soft edema noted leg edema ulcers noted cxr pulmonary edema lasix given will cxr continue o2 will f/u likelyt 2to pulmonary edema aspiration precaution Past Patient History - Infectious Disease Hx of Infectious Diseases: None - Tetanus Immunizations Tetanus Immunization: Unknown, Up to Date - Past Medical History & Family History Past Medical History?: Yes - Past Social History Smoking Status: Never Smoked Chewing Tobacco Use: No Cigar Use: No - CARDIAC Hx Congestive Heart Failure: Yes Hx Heart Murmur: Yes Hx Hypertension: Yes Hx Peripheral Edema: Yes - PULMONARY Hx Emphysema: Yes Hx Pneumonia: Yes - NEUROLOGICAL Hx Neurological Disorder: No Hx Vertigo: Yes - HEENT Hx HEENT Problems: No - RENAL Hx Chronic Kidney Disease: No - ENDOCRINE/METABOLIC Hx Diabetes Mellitus Type 2: Yes - HEMATOLOGICAL/ONCOLOGICAL Hx Blood Disorders: Yes Hx Anemia: Yes Hx Blood Transfusions: Yes - INTEGUMENTARY Hx Dermatological Problems: No Other/Comment: BLE w/ cauliflowered skin - MUSCULOSKELETAL/RHEUMATOLOGICAL Hx Arthritis: Yes Hx Back Pain: Yes Hx Degenerative Joint Disease: Yes Hx Falls: No Hx Osteomyelitis: Yes Hx Unsteady Gait: Yes (uses cane/walker at home) - GASTROINTESTINAL Hx Gastrointestinal Disorders: No Hx Gastritis: Yes Hx Hemorrhoids: Yes - GENITOURINARY/GYNECOLOGICAL Hx Genitourinary Disorders: No - PSYCHIATRIC Hx Anxiety: Yes Hx Depression: Yes Hx Substance Use: No - SURGICAL HISTORY Hx Cholecystectomy: Yes (in 2010) Hx Tonsillectomy: Yes (8yrs old) - ANESTHESIA Hx Anesthesia: Yes Hx Anesthesia Reactions: No Hx Malignant Hyperthermia: No Meds Allergies/Adverse Reactions: Allergies Allergy/AdvReac Type Severity Reaction Status Date / Time Gadolinium-Containing Allergy ITCHING Verified 12/13/16 15:45 Contrast Medi - Medications Medications: Current Medications Albuterol Sulfate (Albuterol 0.042% Inhal Tricia (1.25mg/3ml) Ud) 1.25 mg INH RQ6 [facility] Last Admin: 12/30/16 07:48 Dose: 1.25 mg Epoetin Arturo (Procrit) 10,000 unit SC MWF [facility] Ferrous Sulfate (Feosol) 325 mg PO DAILY [facility] Last Admin: 12/30/16 10:45 Dose: 325 mg Furosemide (Lasix) 40 mg PO DAILY [facility] Last Admin: 12/30/16 10:45 Dose: 40 mg Insulin Glargine (Lantus) 12 unit SC HS [facility] Loperamide HCl (Imodium) 2 mg PO Q4H PRN PRN Reason: Diarrhea Lorazepam (Ativan) 0.5 mg PO HS PRN PRN Reason: Anxiety Last Admin: 12/30/16 06:48 Dose: 0.5 mg Magnesium Hydroxide (Milk Of Magnesia) 30 ml PO Q4H PRN PRN Reason: Constipation Methylprednisolone (Solu-Medrol) 40 mg IVP ONCE ONE Stop: 12/30/16 16:01 Pantoprazole Sodium (Protonix Ec Tab) 40 mg PO DAILY [facility] Last Admin: 12/30/16 10:46 Dose: 40 mg Potassium Chloride (K-Dur 20 Meq Er Tab) 20 meq PO DAILY [facility] Last Admin: 12/30/16 10:46 Dose: 20 meq Tramadol HCl (Ultram) 50 mg PO Q4H PRN PRN Reason: Pain, moderate (4-7) Last Admin: 12/30/16 00:26 Dose: 50 mg Results - Vital Signs Recent Vital Signs: Last Vital Signs Temp 97.8 F 12/30/16 07:05 Pulse 68 12/30/16 07:48 Resp 20 12/30/16 07:05 BP 128/64 12/30/16 10:46 Pulse Ox 94 L 12/30/16 07:05 - Labs Result Diagrams: 12/30/16 08:18 12/29/16 19:29 Labs: Laboratory Results - last 24 hr 12/29/16 12/29/16 12/30/16 20:38 21:40 07:19 WBC RBC Hgb Hct MCV MCH MCHC RDW Plt Count MPV Neut % (Auto) Lymph % (Auto) Howell % (Auto) Eos % (Auto) Baso % (Auto) Neut # Lymph # Howell # Eos # Baso # Neutrophils % (Manual) Lymphocytes % (Manual) Monocytes % (Manual) Platelet Estimate Hypochromasia (manual) Poikilocytosis (manual Anisocytosis (manual) Macrocytosis (manual) Target Cells Ovalocytes Puncture Site pCO2 pO2 HCO3 ABG pH ABG Total CO2 ABG O2 Saturation ABG Base Excess ABG Hemoglobin ABG Carboxyhemoglobin POC ABG HHb (Measured) ABG Methemoglobin Inderjit Test A-a O2 Difference Respiratory Index Hgb O2 Saturation Liter Flow FiO2 POC Glucose (mg/dL) 135 H 98 Urine Color Yellow Urine Clarity Hazy Urine pH 6.0 Ur Specific [place] 1.014 Urine Protein 1+ H Urine Glucose (UA) Normal Urine Ketones Negative Urine Blood 1+ H Urine Nitrate Negative Urine Bilirubin Negative Urine Urobilinogen Normal Ur Leukocyte Esterase 3+ H Urine WBC (Auto) 57 H Urine RBC (Auto) 4 H Ur Squamous Epith Cells < 1 Urine Bacteria Many H Hyaline Casts 11-20 H 12/30/16 12/30/16 12/30/16 08:18 11:17 13:13 WBC 6.2 RBC 2.53 L Hgb 7.9 L Hct 25.7 L MCV 101.6 H MCH 31.4 H MCHC 30.9 L RDW 25.4 H Plt Count 80 L D MPV 9.4 Neut % (Auto) 37.6 L Lymph % (Auto) 33.0 Howell % (Auto) 27.7 H Eos % (Auto) 0.3 Baso % (Auto) 1.4 Neut # 2.3 Lymph # 2.1 Howell # 1.7 H Eos # 0.0 Baso # 0.1 Neutrophils % (Manual) 50 Lymphocytes % (Manual) 39 Monocytes % (Manual) 11 H Platelet Estimate Decreased L Hypochromasia (manual) Slight Poikilocytosis (manual Slight Anisocytosis (manual) Moderate Macrocytosis (manual) Slight Target Cells Slight Ovalocytes Slight Puncture Site Rr pCO2 45 pO2 193 H HCO3 30.1 H ABG pH 7.45 ABG Total CO2 32.7 H ABG O2 Saturation 100.5 H ABG Base Excess 6.6 H ABG Hemoglobin 8.5 L ABG Carboxyhemoglobin 2.7 H POC ABG HHb (Measured) -0.5 L ABG Methemoglobin 2.4 Inderjit Test Pos A-a O2 Difference 36.0 Respiratory Index 0.2 Hgb O2 Saturation 95.3 Liter Flow 8.0 FiO2 40.0 POC Glucose (mg/dL) 132 H Urine Color Urine Clarity Urine pH Ur Specific [place] Urine Protein Urine Glucose (UA) Urine Ketones Urine Blood Urine Nitrate Urine Bilirubin Urine Urobilinogen Ur Leukocyte Esterase Urine WBC (Auto) Urine RBC (Auto) Ur Squamous Epith Cells Urine Bacteria Hyaline Casts
[2016-12-30] MEDS: Aztreonam 1 GM in Sodium Chloride 0.9% 100 ML IVPB SCH ×2 (16:00→23:00)
--- NOTE | 2016-12-30 17:18 | RAD ---
HISTORY: chf COMPARISON: Portable chest 12/29/2016 FINDINGS: LUNGS: Infiltrate persists at the mid to inferior left lung zone though may be somewhat diminished at the midportion lateral to the left hilum. Trace of pleural effusion not excluded. None is seen the right. No pneumothorax or right-sided infiltrate. Life port unchanged in position at the right chest. PLEURA: No significant pleural effusion identified, no pneumothorax apparent. CARDIOVASCULAR: Stable cardiac silhouette. No definite pulmonary vascular derangement. OSSEOUS STRUCTURES: No significant abnormalities. VISUALIZED UPPER ABDOMEN: Inferior vena cava filter noted in position at the right upper quadrant abdomen medially. OTHER FINDINGS: None. IMPRESSION: Limited improvement in mid to inferior left-sided pulmonary infiltrate. Trace of pleural effusion remains questioned.
--- NOTE | 2016-12-30 17:45 | CP.PCM.PN ---
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 distresses spo2 room air 85% o2 sat up to 90- 92% with nasal canula , hgb 7.9 PLT improved after transfusion from 7- 80 Objective - Vital Signs/Intake and Output Vital Signs (last 24 hours): Temp Pulse Resp BP Pulse Ox 97.8 F 99 H 20 132/74 97 12/30/16 16:00 12/30/16 16:00 12/30/16 16:00 12/30/16 16:00 12/30/16 16:00 Intake and Output: 12/30/16 12/30/16 06:59 18:59 Intake Total 310 Balance 310 - Medications Medications: Current Medications Albuterol Sulfate (Albuterol 0.042% Inhal Tricia (1.25mg/3ml) Ud) 1.25 mg INH RQ6 [facility] Last Admin: 12/30/16 13:30 Dose: 1.25 mg Epoetin Arturo (Procrit) 10,000 unit SC F [facility] Ferrous Sulfate (Feosol) 325 mg PO DAILY [facility] Last Admin: 12/30/16 10:45 Dose: 325 mg Furosemide (Lasix) 40 mg PO DAILY [facility] Last Admin: 12/30/16 10:45 Dose: 40 mg Aztreonam 1 gm/ Sodium (Chloride) 100 mls @ 100 mls/hr IVPB Q8H [facility] Last Admin: 12/30/16 16:00 Dose: 100 mls/hr Insulin Glargine (Lantus) 12 unit SC [facility] Loperamide HCl (Imodium) 2 mg PO Q4H PRN PRN Reason: Diarrhea Lorazepam (Ativan) 0.5 mg PO HS PRN PRN Reason: Anxiety Last Admin: 12/30/16 06:48 Dose: 0.5 mg Magnesium Hydroxide (Milk Of Magnesia) 30 ml PO Q4H PRN PRN Reason: Constipation Methylprednisolone (Solu-Medrol) 40 mg IVP ONCE ONE Stop: 12/30/16 20:01 Pantoprazole Sodium (Protonix Ec Tab) 40 mg PO DAILY [facility] Last Admin: 12/30/16 10:46 Dose: 40 mg Potassium Chloride (K-Dur 20 Meq Er Tab) 20 meq PO DAILY [facility] Last Admin: 12/30/16 10:46 Dose: 20 meq Tramadol HCl (Ultram) 50 mg PO Q4H PRN PRN Reason: Pain, moderate (4-7) Last Admin: 12/30/16 00:26 Dose: 50 mg - Labs Labs: 12/30/16 08:18 PT 13.0 SECONDS (9.7-12.2) H 12/29/16 19:29 INR 1.1 12/29/16 19:29 APTT 31 SECONDS (21-34) 12/29/16 19:29 - Constitutional Appears: Non-toxic, Confused, Other (lathargic ) - Respiratory Exam Respiratory Exam: Prolonged Expiratory Phase, Rales, Respiratory Distress (mild) - Cardiovascular Exam Cardiovascular Exam: REGULAR RHYTHM, +S1, +S2 - GI/Abdominal Exam GI & Abdominal Exam: Soft, Normal Bowel Sounds - Neurological Exam Neurological Exam: Altered Assessment and Plan - Assessment and Plan (Free Text) Assessment: 76 yr old female admitted for Thrombocytopenia with plt 7 s/p platelet transfusion - plt - improved Patient lethargic this am , spo2 85 on room air abg - done Dr. Barreto on pulmonary consult will transfer patient to Tele floor the above plan discussed with Dr. Foster and agrees
--- NOTE | 2016-12-30 19:10 | CP.PCM.PN ---
Subjective - Date & Time of Evaluation Date of Evaluation: 12/30/16 Time of Evaluation: 14:30 - Subjective Subjective: Patient removed nasal canula and became confused and disoriented. Mental status improved when she was placed on O2 again. Ms Jaeger was also evaluated by Dr Barreto. Patient noted to have infiltrate on chest xray. Antibiotic therapy ordered by Dr Prabhakar. The patient had a positive bone scan for osteomyilitis two weeks ago. Will repeat labs in AM. Objective - Vital Signs/Intake and Output Vital Signs (last 24 hours): Temp Pulse Resp BP Pulse Ox 97.8 F 99 H 20 132/74 97 12/30/16 16:00 12/30/16 16:00 12/30/16 16:00 12/30/16 16:00 12/30/16 16:00 Intake and Output: 12/30/16 12/30/16 06:59 18:59 Intake Total 310 Balance 310 - Medications Medications: Current Medications Albuterol Sulfate (Albuterol 0.042% Inhal Tricia (1.25mg/3ml) Ud) 1.25 mg INH RQ6 [facility] Last Admin: 12/30/16 13:30 Dose: 1.25 mg Epoetin Arturo (Procrit) 10,000 unit SC [facility] Ferrous Sulfate (Feosol) 325 mg PO DAILY [facility] Last Admin: 12/30/16 10:45 Dose: 325 mg Furosemide (Lasix) 40 mg PO DAILY [facility] Last Admin: 12/30/16 10:45 Dose: 40 mg Aztreonam 1 gm/ Sodium (Chloride) 100 mls @ 100 mls/hr IVPB Q8H [facility] Last Admin: 12/30/16 16:00 Dose: 100 mls/hr Insulin Glargine (Lantus) 12 unit SC [facility] Loperamide HCl (Imodium) 2 mg PO Q4H PRN PRN Reason: Diarrhea Lorazepam (Ativan) 0.5 mg PO HS PRN PRN Reason: Anxiety Last Admin: 12/30/16 06:48 Dose: 0.5 mg Magnesium Hydroxide (Milk Of Magnesia) 30 ml PO Q4H PRN PRN Reason: Constipation Methylprednisolone (Solu-Medrol) 40 mg IVP ONCE ONE Stop: 12/30/16 20:01 Pantoprazole Sodium (Protonix Ec Tab) 40 mg PO DAILY [facility] Last Admin: 12/30/16 10:46 Dose: 40 mg Potassium Chloride (K-Dur 20 Meq Er Tab) 20 meq PO DAILY [facility] Last Admin: 12/30/16 10:46 Dose: 20 meq Tramadol HCl (Ultram) 50 mg PO Q4H PRN PRN Reason: Pain, moderate (4-7) Last Admin: 12/30/16 00:26 Dose: 50 mg - Labs Labs: 12/30/16 08:18 PT 13.0 SECONDS (9.7-12.2) H 12/29/16 19:29 INR 1.1 12/29/16 19:29 APTT 31 SECONDS (21-34) 12/29/16 19:29 - Constitutional Appears: Chronically Ill - Head Exam Head Exam: NORMOCEPHALIC - Eye Exam Eye Exam: Normal appearance Pupil Exam: NORMAL ACCOMODATION - ENT Exam ENT Exam: Normal Exam - Neck Exam Neck Exam: Normal Inspection - Respiratory Exam Respiratory Exam: Decreased Breath Sounds - Cardiovascular Exam Cardiovascular Exam: Irregular Rhythm - GI/Abdominal Exam GI & Abdominal Exam: Hyperactive Bowel Sounds - Rectal Exam Rectal Exam: Deferred - Exam External exam: NORMAL EXTERNAL EXAM - Extremities Exam Extremities Exam: Calf Tenderness - Back Exam Back Exam: NORMAL INSPECTION - Neurological Exam Neurological Exam: Altered - Psychiatric Exam Psychiatric exam: Depressed - Skin Skin Exam: Dry Assessment and Plan (1) Emphysema (subcutaneous) resulting from procedure Status: Acute (2) Myeloproliferative disease Status: Acute (3) Thrombocytopenia Status: Acute (4) Anemia Status: Acute (5) Osteoarthritis Status: Acute (6) Peripheral edema Status: Acute (7) Thrombophlebitis Status: Acute (8) Osteomyelitis Status: Acute
[2016-12-30] MEDS: (Lantus) Insulin Glargine, Recombinant SC SCH (22:22)
--- NOTE | 2016-12-30 23:47 | CP.PCM.CON ---
History of Present Illness - History of Present Illness History of Present Illness: Patient is known to me from last hospitalization for a diastolic heart failure, a lung infiltrate, an osteomyelitis of the right tibia, an anemia and thrombocytopenia. She is readmitted this time because she was found to have a platelet count of 7000 on a routine follow up CBC. She was given Solumedrol and Platelet transfusion, She became slightly dyspneic afterwards. ECG reveals a sinus rhythm with non specific ST-T wave change. A CXR revealed left lung infiltrates much improved from last admission. She is on Lasix 40 mg PO qd, and Azactam IV. She denies any chest pain. Review of Systems - Constitutional Constitutional: Weakness - Cardiovascular Cardiovascular: Dyspnea, Edema - Respiratory Respiratory: Dyspnea - Musculoskeletal Additional comments: Chronic lyphedema of the right lower leg. - Integumentary Integumentary: Swelling Additional comments: Swelling of the right lower leg. - Neurological Neurological: Weakness - Psychiatric Psychiatric: Anxiety - Endocrine Endocrine: Fatigue Past Patient History - Infectious Disease Hx of Infectious Diseases: None - Tetanus Immunizations Tetanus Immunization: Unknown, Up to Date - Past Medical History & Family History Past Medical History?: Yes - Past Social History Smoking Status: Never Smoked Chewing Tobacco Use: No Cigar Use: No - CARDIAC Hx Congestive Heart Failure: Yes Hx Heart Murmur: Yes Hx Hypertension: Yes Hx Peripheral Edema: Yes - PULMONARY Hx Emphysema: Yes Hx Pneumonia: Yes - NEUROLOGICAL Hx Neurological Disorder: No Hx Vertigo: Yes - HEENT Hx HEENT Problems: No - RENAL Hx Chronic Kidney Disease: No - ENDOCRINE/METABOLIC Hx Diabetes Mellitus Type 2: Yes - HEMATOLOGICAL/ONCOLOGICAL Hx Blood Disorders: Yes Hx Anemia: Yes Hx Blood Transfusions: Yes - INTEGUMENTARY Hx Dermatological Problems: No Other/Comment: BLE w/ cauliflowered skin - MUSCULOSKELETAL/RHEUMATOLOGICAL Hx Arthritis: Yes Hx Back Pain: Yes Hx Degenerative Joint Disease: Yes Hx Falls: No Hx Osteomyelitis: Yes Hx Unsteady Gait: Yes (uses cane/walker at home) - GASTROINTESTINAL Hx Gastrointestinal Disorders: No Hx Gastritis: Yes Hx Hemorrhoids: Yes - GENITOURINARY/GYNECOLOGICAL Hx Genitourinary Disorders: No - PSYCHIATRIC Hx Anxiety: Yes Hx Depression: Yes Hx Substance Use: No - SURGICAL HISTORY Hx Cholecystectomy: Yes (in 2010) Hx Tonsillectomy: Yes (8yrs old) - ANESTHESIA Hx Anesthesia: Yes Hx Anesthesia Reactions: No Hx Malignant Hyperthermia: No Meds Allergies/Adverse Reactions: Allergies Allergy/AdvReac Type Severity Reaction Status Date / Time Gadolinium-Containing Allergy ITCHING Verified 12/13/16 15:45 Contrast Medi - Medications Medications: Current Medications Albuterol Sulfate (Albuterol 0.042% Inhal Tricia (1.25mg/3ml) Ud) 1.25 mg INH RQ6 [facility] Last Admin: 12/30/16 22:26 Dose: Not Given Epoetin Arturo (Procrit) 10,[address] [facility] [place] Sulfate (Feosol) 325 mg PO DAILY [facility] Last Admin: 12/30/16 10:45 Dose: 325 mg Furosemide (Lasix) 40 mg PO DAILY [facility] Last Admin: 12/30/16 10:45 Dose: 40 mg Aztreonam 1 gm/ Sodium (Chloride) 100 mls @ 100 mls/hr IVPB Q8H [facility] Last Admin: 12/30/16 16:00 Dose: 100 mls/hr Insulin Glargine (Lantus) 12 unit SC [facility] Last Admin: 12/30/16 22:22 Dose: 12 units Loperamide HCl (Imodium) 2 mg PO Q4H PRN PRN Reason: Diarrhea Lorazepam (Ativan) 0.5 mg PO HS PRN PRN Reason: Anxiety Last Admin: 12/30/16 06:48 Dose: 0.5 mg Magnesium Hydroxide (Milk Of Magnesia) 30 ml PO Q4H PRN PRN Reason: Constipation Methylprednisolone (Solu-Medrol) 40 mg IVP ONCE ONE Stop: 12/31/16 01:31 Pantoprazole Sodium (Protonix Ec Tab) 40 mg PO DAILY [facility] Last Admin: 12/30/16 10:46 Dose: 40 mg Potassium Chloride (K-Dur 20 Meq Er Tab) 20 meq PO DAILY [facility] Last Admin: 12/30/16 10:46 Dose: 20 meq Tramadol HCl (Ultram) 50 mg PO Q4H PRN PRN Reason: Pain, moderate (4-7) Last Admin: 12/30/16 00:26 Dose: 50 mg Physical Exam - Constitutional Appears: Chronically Ill - Head Exam Head Exam: NORMAL INSPECTION - Eye Exam Eye Exam: Normal appearance - ENT Exam ENT Exam: Normal Exam - Neck Exam Neck exam: Positive for: Normal Inspection - Respiratory Exam Additional comments: Lungs: rhonchi and rales heard at the left base and mid lung field. - Cardiovascular Exam Cardiovascular Exam: REGULAR RHYTHM - GI/Abdominal Exam GI & Abdominal Exam: Normal Bowel Sounds, Soft - Rectal Exam Rectal Exam: Deferred - Extremities Exam Additional comments: Edema of the right lower leg. - Back Exam Back exam: NORMAL INSPECTION - Neurological Exam Neurological exam: Alert, Oriented x3 - Psychiatric Exam Psychiatric exam: Anxious - Skin Additional comments: Chronic skin change and edema of the right lower leg. Results - Vital Signs Recent Vital Signs: Last Vital Signs Temp 98.5 F 12/30/16 22:46 Pulse 93 H 12/30/16 22:46 Resp 20 12/30/16 22:46 BP 141/79 12/30/16 22:46 Pulse Ox 97 12/30/16 16:00 - Labs Result Diagrams: 12/30/16 08:18 12/29/16 19:29 Labs: Laboratory Results - last 24 hr 12/30/16 12/30/16 12/30/16 07:19 08:18 11:17 WBC 6.2 RBC 2.53 L Hgb 7.9 L Hct 25.7 L MCV 101.6 H MCH 31.4 H MCHC 30.9 L RDW 25.4 H Plt Count 80 L D MPV 9.4 Neut % (Auto) 37.6 L Lymph % (Auto) 33.0 Labette % (Auto) 27.7 H Eos % (Auto) 0.3 Baso % (Auto) 1.4 Neut # 2.3 Lymph # 2.1 Labette # 1.7 H Eos # 0.0 Baso # 0.1 Neutrophils % (Manual) 50 Lymphocytes % (Manual) 39 Monocytes % (Manual) 11 H Platelet Estimate Decreased L Hypochromasia (manual) Slight Poikilocytosis (manual Slight Anisocytosis (manual) Moderate Macrocytosis (manual) Slight Target Cells Slight Ovalocytes Slight Puncture Site pCO2 pO2 HCO3 ABG pH ABG Total CO2 ABG O2 Saturation ABG Base Excess ABG Hemoglobin ABG Carboxyhemoglobin POC ABG HHb (Measured) ABG Methemoglobin Inderjit Test A-a O2 Difference Respiratory Index Hgb O2 Saturation Liter Flow FiO2 POC Glucose (mg/dL) 98 132 H Lactic Acid Blood Type Antibody Screen 12/30/16 12/30/16 12/30/16 13:13 13:48 14:52 WBC RBC Hgb Hct MCV MCH MCHC RDW Plt Count MPV Neut % (Auto) Lymph % (Auto) Labette % (Auto) Eos % (Auto) Baso % (Auto) Neut # Lymph # Labette # Eos # Baso # Neutrophils % (Manual) Lymphocytes % (Manual) Monocytes % (Manual) Platelet Estimate Hypochromasia (manual) Poikilocytosis (manual Anisocytosis (manual) Macrocytosis (manual) Target Cells Ovalocytes Puncture Site Rr pCO2 45 pO2 193 H HCO3 30.1 H ABG pH 7.45 ABG Total CO2 32.7 H ABG O2 Saturation 100.5 H ABG Base Excess 6.6 H ABG Hemoglobin 8.5 L ABG Carboxyhemoglobin 2.7 H POC ABG HHb (Measured) -0.5 L ABG Methemoglobin 2.4 Inderjit Test Pos A-a O2 Difference 36.0 Respiratory Index 0.2 Hgb O2 Saturation 95.3 Liter Flow 8.0 FiO2 40.0 POC Glucose (mg/dL) Lactic Acid 1.2 Blood Type O NEGATIVE Antibody Screen Negative 12/30/16 12/30/16 16:25 20:56 WBC RBC Hgb Hct MCV MCH MCHC RDW Plt Count MPV Neut % (Auto) Lymph % (Auto) Labette % (Auto) Eos % (Auto) Baso % (Auto) Neut # Lymph # Labette # Eos # Baso # Neutrophils % (Manual) Lymphocytes % (Manual) Monocytes % (Manual) Platelet Estimate Hypochromasia (manual) Poikilocytosis (manual Anisocytosis (manual) Macrocytosis (manual) Target Cells Ovalocytes Puncture Site pCO2 pO2 HCO3 ABG pH ABG Total CO2 ABG O2 Saturation ABG Base Excess ABG Hemoglobin ABG Carboxyhemoglobin POC ABG HHb (Measured) ABG Methemoglobin Inderjit Test A-a O2 Difference Respiratory Index Hgb O2 Saturation Liter Flow FiO2 POC Glucose (mg/dL) 114 H 166 H Lactic Acid Blood Type Antibody Screen Assessment & Plan (1) Acute on chronic diastolic (congestive) heart failure Assessment and Plan: To continue Lasix 40 mg PO qd. Status: Acute (2) Thrombocytopenia Assessment and Plan: Solumedrol and Platelet transfusion as per Dr Fitzgerald. Status: Acute (3) Osteomyelitis of right tibia Assessment and Plan: IV antibiotic as per Dr Prabhakar. Status: Acute
[2016-12-31] MEDS: Albuterol 0.042% Inhal Sol (1.25 mg/3 mL) UD INH SCH ×4 (01:13→19:12)
[2016-12-31] MEDS ORDERED: MethylPREDNISolone 40 mg Vial IVP ONE (01:30)
[2016-12-31] MEDS: Aztreonam 1 GM in Sodium Chloride 0.9% 100 ML IVPB SCH ×3 (06:02→22:47)
[2016-12-31 09:14] LABS: BASO % 0.4 % (0.0-2.0); HEMATOCRIT 33.8 % (34.0-47.0); LYMPH # 0.9 K/uL (1.0-4.3); LYMPH % 19.9 % (20.0-40.0); MEAN CELL VOLUME 96.1 fL (81.0-99.0); MEAN CORPUSCULAR HEMOGLOBIN 30.9 pg (27.0-31.0); MEAN CORPUSCULAR HGB CONC 32.1 g/dL (33.0-37.0); MEAN PLATELET VOLUME 9.5 fL (7.2-11.7); MONO % 0.7 % (0.0-10.0); RED CELL DISTRIBUTION WIDTH 23.3 % (11.5-14.5); WHITE BLOOD COUNT 4.3 K/uL (4.8-10.8)
[2016-12-31] MEDS: Pantoprazole 40 mg EC Tab PO SCH (09:16)
[2016-12-31] MEDS: Potassium Chloride 20 mEq ER Tab PO SCH (09:16)
[2016-12-31 09:17] LABS: POTASSIUM 4.3 mmol/L (3.6-5.2)
--- NOTE | 2016-12-31 14:37 | CP.PCM.CON ---
History of Present Illness - History of Present Illness History of Present Illness: Patient is a 76 year old woman sent from [facility] for abnormal labs of thrombocytopenia (12,000). Pt denies any complaints. transferred from [facility] at the [facility] with mild confusion, shortness of breath, and a platlet count of 7,000. Patient was evaluated and admission was advised. Platlet transfusion was immmediately ordered and hematology consult was requested. Past history includes severe anemia, myloproliferative disorder, congestive heart fialure, emphysema, thrombophlebitis, degenerative arthritis, and diabetes mellitus. Patient with hx of heel ulcers and OM right tibia - Medical History PMH: Anemia, Anxiety, Arthritis, Emphysema, HTN, Peripheral Edema, Pneumonia PMH : Anemia, thrombocytopenia, DJD, DM, CAD, myelodysplasia and s/o transfusion Surgical History: Cholecystectomy (in 2010) IVC filter - [facility] Procedures CENTRAL VENOUS CATHETER PLACEMENT WITH GUIDANCE (02/16/14) FLUOROSCOPY OF SUPERIOR VENA CAVA, GUIDANCE (10/12/16) INSERTION OF INFUSION DEV INTO SUP VENA CAVA, PERC APPROACH (10/12/16) INSERTION OF VAD INTO CHEST SUBCU/FASCIA, OPEN APPROACH (10/12/16) PACKED CELL TRANSFUSION (02/16/14) TRANSFUSE NONAUT PLATELETS IN PERIPH VEIN, PERC (12/13/16) TRANSFUSE NONAUT RED BLOOD CELLS IN PERIPH VEIN, PERC (09/06/16) VACCINATION NEC (02/16/14) Review of Systems - Review of Systems Systems not reviewed;Unavailable: Altered Mental Status - Constitutional Constitutional: As Per HPI, Anorexia, Chills, Malaise - EENT Eyes: absent: As Per HPI, Blind Spots, Blurred Vision, Change in Vision, Decreased Night Vision, Diplopia, Discharge, Dry Eye, Exophthalmos, Floaters, Irritation, Itchy Eyes, Loss of Peripheral Vision, Pain, Photophobia, Requires Corrective Lenses, Sees Flashes, Spots in Vision, Tunnel Vision, Other Visual Disturbances, Loss of Vision, Other Ears: absent: As Per HPI, Decreased Hearing, Ear Discharge, Ear Pain, Tinnitus, Abnormal Hearing, Disequilibrium, Dizziness, Other Nose/Mouth/Throat: absent: As Per HPI, Epistaxis, Nasal Congestion, Nasal Discharge, Nasal Obstruction, Nasal Trauma, Nose Pain, Post Nasal Drip, Sinus Pain, Sinus Pressure, Bleeding Gums, Change in Voice, Dental Pain, Dry Mouth, Dysphagia, Halitosis, Hoarsness, Lip Swelling, Mouth Lesions, Mouth Pain, Odynophagia, Sore Throat, Throat Swelling, Tongue Swelling, Facial Pain, Neck Pain, Neck Mass, Other - Breasts Breasts: absent: As Per HPI, Change in Shape, Mass, Pain, Nipple Discharge, Nipple Inversion, Skin Changes, Swelling, Other - Cardiovascular Cardiovascular: As Per HPI - Respiratory Respiratory: As Per HPI - Gastrointestinal Gastrointestinal: absent: As Per HPI, Abdominal Pain, Belching, Bloating, Change in Bowel Habits, Change in Stool Character, Coffee Ground Emesis, Constipation, Cramping, Diarrhea, Dyspepsia, Dysphagia, Early Satiety, Excessive Flatus, Fecal Incontinence, Heartburn, Hematemesis, Hematochezia, Loose Stools, Melena, Nausea, Odynophagia, Temesmus, Vomiting, Other - Genitourinary Genitourinary: absent: As Per HPI, Change in Urinary Stream, Difficulty Urinating, Dysuria, Flank Pain, Hematuria, Pyuria, Nocturia, Urinary Incontinence, Urinary Frequency, Urinary Hesitance, Urinary Urgency, Voiding Freq/Small Amts, Freq UTI, Hx Renal/Bladder Calculi, Hx /Renal Surgery, Bladder Distension, Other - Reproductive: Female Reproductive:Female: absent: As Per HPI, Amenorrhea, Amenorrhea/ Control, Currently Menstual, Cycle <21 Days, Cycle >35 Days, Cycle Variable, Menses 1-7 Days, Menses >/= 8 Days, Menses Variable, Cycle > 4 Weeks Between, No Menses for 6 Months, Heavy Menses, Light Menses, Normal Menses, Spotting Between Cycles , S/P Hysterectomy, Menopausal, Post Menopausal, Premenarche, Abnormal Vaginal Bleeding, Dysmenorrhea, Dyspareunia, Genital Lesions, Genital Pruritis, Pelvic Pain, Prolapse Symptoms, Sexual Dysfunction, Vaginal Discharge, Vaginal Dryness , Vaginal Odor, Vaginal Pruritis, Other - Menstruation Menstruation: absent: As Per HPI, Amenorrhea, Amenorrhea/ Control, Currently Menstual, Cycle <21 Days, Cycle >35 Days, Cycle Variable, Menses 1-7 Days, Menses >/= 8 Days, Menses Variable, Cycle > 4 Weeks Between, No Menses for 6 Months, Heavy Menses, Light Menses, Normal Menses, Spotting Between Cycles , S/P Hysterectomy, Menopausal, Post Menopausal, Premenarche, Abnormal Vaginal Bleeding, Dysmenorrhea, Other - Musculoskeletal Musculoskeletal: As Per HPI - Integumentary Integumentary: As Per HPI, Skin Pain, Wounds - Neurological Neurological: absent: As Per HPI, Abnormal Gait, Abnormal Hearing, Abnormal Movements, Abnormal Speech, Behavioral Changes, Burning Sensations, Confusion, Convulsions, Disequilibrium, Dizziness, Numbness, Focal Weakness, Frequent Falls , Headaches, Lack of Coordination, Loss of Vision, Memory Loss, Paresthesias, Radicular Pain, Restless Legs, Sensory Deficit, Syncope, Tingling, Tremor, Vertigo, Weakness, Other Visual Disturbances, Other - Psychiatric Psychiatric: absent: As Per HPI, Abnormal Sleep Pattern, Anhedonia, Anxiety, Auditory Hallucinations, Behavioral Changes, Change in Appetite, Change in Libido, Confusion, Depression, Difficulty Concentrating, Hallucinations, Homicidal Ideation, Hopelessness, Irritability, Memory Loss, Mood Swings, Panic Attacks, Paranoia, Suicidal Ideation, Visual Hallucinations, Tactile Hallucinations, Other - Endocrine Endocrine: absent: As Per HPI, Change in Body Appearance, Change in Libido, Cold Intolorance, Deepening of Voice, Excessive Sweating, Fatigue, Flushing, Heat Intolorance, Increase in Ring/Shoe/Hat Size, Palpitations, Polydipsia, Polyphagia, Polyuria, Other - Hematologic/Lymphatic Hematologic: absent: As Per HPI, Easy Bleeding, Easy Bruising, Lymphadenopathy, Other Past Patient History - Infectious Disease Hx of Infectious Diseases: None - Tetanus Immunizations Tetanus Immunization: Unknown, Up to Date - Past Medical History & Family History Past Medical History?: Yes - Past Social History Smoking Status: Never Smoked Chewing Tobacco Use: No Cigar Use: No - CARDIAC Hx Congestive Heart Failure: Yes Hx Heart Murmur: Yes Hx Hypertension: Yes Hx Peripheral Edema: Yes - PULMONARY Hx Emphysema: Yes Hx Pneumonia: Yes - NEUROLOGICAL Hx Neurological Disorder: No Hx Vertigo: Yes - HEENT Hx HEENT Problems: No - RENAL Hx Chronic Kidney Disease: No - ENDOCRINE/METABOLIC Hx Diabetes Mellitus Type 2: Yes - HEMATOLOGICAL/ONCOLOGICAL Hx Blood Disorders: Yes Hx Anemia: Yes Hx Blood Transfusions: Yes - INTEGUMENTARY Hx Dermatological Problems: No Other/Comment: BLE w/ cauliflowered skin - MUSCULOSKELETAL/RHEUMATOLOGICAL Hx Arthritis: Yes Hx Back Pain: Yes Hx Degenerative Joint Disease: Yes Hx Falls: No Hx Osteomyelitis: Yes Hx Unsteady Gait: Yes (uses cane/walker at home) - GASTROINTESTINAL Hx Gastrointestinal Disorders: No Hx Gastritis: Yes Hx Hemorrhoids: Yes - GENITOURINARY/GYNECOLOGICAL Hx Genitourinary Disorders: No - PSYCHIATRIC Hx Anxiety: Yes Hx Depression: Yes Hx Substance Use: No - SURGICAL HISTORY Hx Cholecystectomy: Yes (in 2010) Hx Tonsillectomy: Yes (8yrs old) - ANESTHESIA Hx Anesthesia: Yes Hx Anesthesia Reactions: No Hx Malignant Hyperthermia: No Meds Allergies/Adverse Reactions: Allergies Allergy/AdvReac Type Severity Reaction Status Date / Time Gadolinium-Containing Allergy ITCHING Verified 12/13/16 15:45 Contrast Medi - Medications Medications: Current Medications Albuterol Sulfate (Albuterol 0.042% Inhal Tricia (1.25mg/3ml) Ud) 1.25 mg INH RQ6 [facility] Last Admin: 12/31/16 13:43 Dose: 1.25 mg Epoetin Arturo (Procrit) 10,000 [place] [facility] [place]ous Sulfate (Feosol) 325 mg PO DAILY [facility] Last Admin: 12/31/16 09:16 Dose: 325 mg Furosemide (Lasix) 40 mg PO DAILY [facility] Last Admin: 12/31/16 09:16 Dose: 40 mg Aztreonam 1 gm/ Sodium (Chloride) 100 mls @ 100 mls/hr IVPB Q8H [facility] Last Admin: 12/31/16 06:02 Dose: 100 mls/hr Insulin Glargine (Lantus) [address] [facility] Last Admin: 12/30/16 22:22 Dose: 12 units Loperamide HCl (Imodium) 2 mg PO Q4H PRN PRN Reason: Diarrhea Lorazepam (Ativan) 0.5 mg PO HS PRN PRN Reason: Anxiety Last Admin: 12/30/16 06:48 Dose: 0.5 mg Magnesium Hydroxide (Milk Of Magnesia) 30 ml PO Q4H PRN PRN Reason: Constipation Pantoprazole Sodium (Protonix Ec Tab) 40 mg PO DAILY [facility] Last Admin: 12/31/16 09:16 Dose: 40 mg Potassium Chloride (K-Dur 20 Meq Er Tab) 20 meq PO DAILY [facility] Last Admin: 12/31/16 09:16 Dose: 20 meq Tramadol HCl (Ultram) 50 mg PO Q4H PRN PRN Reason: Pain, moderate (4-7) Last Admin: 12/30/16 00:26 Dose: 50 mg Physical Exam - Constitutional Appears: Non-toxic, Confused, Cachectic, Chronically Ill - Head Exam Head Exam: ATRAUMATIC, NORMAL INSPECTION, NORMOCEPHALIC - Eye Exam Eye Exam: PERRL. absent: Scleral icterus - ENT Exam ENT Exam: Mucous Membranes Dry, Normal External Ear Exam, Normal Oropharynx - Neck Exam Neck exam: Negative for: Lymphadenopathy, Thyromegaly - Respiratory Exam Respiratory Exam: Decreased Breath Sounds, Rhonchi - Cardiovascular Exam Cardiovascular Exam: REGULAR RHYTHM, +S1, +S2 - GI/Abdominal Exam GI & Abdominal Exam: Hyperactive Bowel Sounds, Soft. absent: Tenderness - Rectal Exam Rectal Exam: Deferred - Exam Exam: NORMAL INSPECTION - Extremities Exam Extremities exam: Positive for: pedal edema, tenderness, pedal pulses present. Negative for: calf tenderness - Back Exam Back exam: absent: CVA tenderness (L), CVA tenderness (R), paraspinal tenderness - Neurological Exam Neurological exam: Alert, CN II-XII Intact, Oriented x3, Reflexes Normal - Psychiatric Exam Psychiatric exam: Depressed - Skin Skin Exam: Dry, Intact Results - Vital Signs Recent Vital Signs: Last Vital Signs Temp 97.7 F 12/31/16 08:56 Pulse 79 12/31/16 08:56 Resp 20 12/31/16 08:56 BP 169/76 H 12/31/16 09:16 Pulse Ox 98 12/31/16 08:56 - Labs Result Diagrams: 12/31/16 09:02 12/31/16 09:02 Labs: Laboratory Results - last 24 hr 12/30/16 12/30/16 12/30/16 13:48 14:52 16:25 WBC RBC Hgb Hct MCV MCH MCHC RDW Plt Count MPV Neut % (Auto) Lymph % (Auto) Gregory % (Auto) Eos % (Auto) Baso % (Auto) Neut # Lymph # Gregory # Eos # Baso # Sodium Potassium Chloride Carbon Dioxide BUN POC Glucose (mg/dL) 114 H Lactic Acid 1.2 NT-Pro-B Natriuret Pep Blood Type O NEGATIVE Antibody Screen Negative 12/30/16 12/31/16 12/31/16 20:56 06:08 09:02 WBC RBC Hgb Hct MCV MCH MCHC RDW Plt Count MPV Neut % (Auto) Lymph % (Auto) Gregory % (Auto) Eos % (Auto) Baso % (Auto) Neut # Lymph # Gregory # Eos # Baso # Sodium 140 Potassium 4.3 Chloride 108 H Carbon Dioxide 24 BUN 27 H POC Glucose (mg/dL) 166 H 185 H Lactic Acid NT-Pro-B Natriuret Pep 844 Blood Type Antibody Screen 12/31/16 12/31/16 09:02 11:49 WBC 4.3 L RBC 3.52 L Hgb 10.9 L D Hct 33.8 L MCV 96.1 D MCH 30.9 MCHC 32.1 L RDW 23.3 H Plt Count 62 L MPV 9.5 Neut % (Auto) 79.0 H Lymph % (Auto) 19.9 L Gregory % (Auto) 0.7 Eos % (Auto) 0.0 Baso % (Auto) 0.4 Neut # 3.4 Lymph # 0.9 L Gregory # 0.0 Eos # 0.0 Baso # 0.0 Sodium Potassium Chloride Carbon Dioxide BUN POC Glucose (mg/dL) 190 H Lactic Acid NT-Pro-B Natriuret Pep Blood Type Antibody Screen Assessment & Plan (1) Emphysema (subcutaneous) resulting from procedure Status: Acute (2) Myeloproliferative disease Status: Acute (3) Osteomyelitis of right tibia Status: Acute (4) Thrombocytopenia Status: Acute (5) Acute on chronic diastolic (congestive) heart failure Status: Acute (6) Anemia Status: Acute Priority: High (7) Degenerative disc disease at L5-S1 level Status: Acute Priority: Medium (8) Diabetes mellitus type 2 in obese Status: Acute Priority: Medium (9) Heel ulcer Status: Acute (10) Myelodysplasia, high grade Status: Acute (11) Osteomyelitis Status: Acute (12) Osteomyelitis Status: Acute (13) Pancytopenia Status: Acute (14) Pneumonia Status: Acute - Assessment and Plan (Free Text) Assessment: cultures from wound last time + pseudomonas will cont iv rx add coverage for G+
[2016-12-31] MEDS: (Lantus) Insulin Glargine, Recombinant SC SCH (21:28)
--- NOTE | 2016-12-31 21:43 | CP.PCM.PN ---
Subjective - Date & Time of Evaluation Date of Evaluation: 12/31/16 Time of Evaluation: 17:45 - Subjective Subjective: Patient having less shortness of breath. Hgb 10.9 and platlets 62,000. She was evaluated by Dr Prabhakar. Patient on antibiotic therapy, Repeat labs in AM. Objective - Vital Signs/Intake and Output Vital Signs (last 24 hours): Temp Pulse Resp BP Pulse Ox 98 F 63 20 156/69 H 100 12/31/16 15:43 12/31/16 16:00 12/31/16 15:43 12/31/16 15:43 12/31/16 15:43 Intake and Output: 12/31/16 01/01/17 18:59 06:59 Intake Total 400 Output Total 600 Balance -200 - Medications Medications: Current Medications Albuterol Sulfate (Albuterol 0.042% Inhal Tricia (1.25mg/3ml) Ud) 1.25 mg INH RQ6 [facility] Last Admin: 12/31/16 19:12 Dose: Not Given Epoetin Arturo (Procrit) 10,000 unit SC F [facility] Ferrous Sulfate (Feosol) 325 mg PO DAILY [facility] Last Admin: 12/31/16 09:16 Dose: 325 mg Furosemide (Lasix) 40 mg PO DAILY [facility] Last Admin: 12/31/16 09:16 Dose: 40 mg Aztreonam 1 gm/ Sodium (Chloride) 100 mls @ 100 mls/hr IVPB Q8H [facility] Last Admin: 12/31/16 14:47 Dose: 100 mls/hr Vancomycin HCl 1,000 mg/ (Sodium Chloride) 250 mls @ 166.6 mls/hr IVPB Q12H [facility] Last Admin: 12/31/16 18:00 Dose: 166.6 mls/hr Insulin Glargine (Lantus) 12 unit SC HS [facility] Last Admin: 12/31/16 21:28 Dose: 12 units Loperamide HCl (Imodium) 2 mg PO Q4H PRN PRN Reason: Diarrhea Lorazepam (Ativan) 0.5 mg PO HS PRN PRN Reason: Anxiety Last Admin: 12/30/16 06:48 Dose: 0.5 mg Magnesium Hydroxide (Milk Of Magnesia) 30 ml PO Q4H PRN PRN Reason: Constipation Pantoprazole Sodium (Protonix Ec Tab) 40 mg PO DAILY [facility] Last Admin: 12/31/16 09:16 Dose: 40 mg Potassium Chloride (K-Dur 20 Meq Er Tab) 20 meq PO DAILY [facility] Last Admin: 12/31/16 09:16 Dose: 20 meq Tramadol HCl (Ultram) 50 mg PO Q4H PRN PRN Reason: Pain, moderate (4-7) Last Admin: 12/30/16 00:26 Dose: 50 mg - Labs Labs: 12/31/16 09:02 12/31/16 09:02 PT 13.0 SECONDS (9.7-12.2) H 12/29/16 19:29 INR 1.1 12/29/16 19:29 APTT 31 SECONDS (21-34) 12/29/16 19:29 - Constitutional Appears: Chronically Ill - Head Exam Head Exam: NORMOCEPHALIC - Eye Exam Eye Exam: Normal appearance - ENT Exam ENT Exam: Normal Exam - Neck Exam Neck Exam: Normal Inspection - Respiratory Exam Respiratory Exam: Decreased Breath Sounds - Cardiovascular Exam Cardiovascular Exam: REGULAR RHYTHM - GI/Abdominal Exam GI & Abdominal Exam: Normal Bowel Sounds - Exam External exam: NORMAL EXTERNAL EXAM - Extremities Exam Extremities Exam: Tenderness - Back Exam Back Exam: NORMAL INSPECTION - Neurological Exam Neurological Exam: Oriented x3 - Psychiatric Exam Psychiatric exam: Depressed - Skin Skin Exam: Dry Assessment and Plan (1) Emphysema (subcutaneous) resulting from procedure Status: Acute (2) Myeloproliferative disease Status: Acute (3) Thrombocytopenia Status: Acute (4) Anemia Status: Acute (5) Osteoarthritis Status: Acute (6) Peripheral edema Status: Acute (7) Thrombophlebitis Status: Acute (8) Osteomyelitis Status: Acute
[2017-01-01] MEDS: Albuterol 0.042% Inhal Sol (1.25 mg/3 mL) UD INH SCH ×4 (01:18→19:31)
[2017-01-01] MEDS: Aztreonam 1 GM in Sodium Chloride 0.9% 100 ML IVPB SCH ×3 (06:00→22:30)
[2017-01-01 07:21] LABS: BASO # 0.1 K/uL (0.0-0.2); BASO % 1.4 % (0.0-2.0); HEMATOCRIT 31.8 % (34.0-47.0); LYMPH % 21.6 % (20.0-40.0); MEAN CELL VOLUME 96.3 fL (81.0-99.0); MEAN CORPUSCULAR HEMOGLOBIN 30.6 pg (27.0-31.0); MEAN CORPUSCULAR HGB CONC 31.7 g/dL (33.0-37.0); MONO # 2.1 K/uL (0.0-0.8); MONO % 23.6 % (0.0-10.0); NRBC % 0.7 % (0.0-2.0); PLATELET COUNT 56 K/uL (130-400); RED CELL DISTRIBUTION WIDTH 23.1 % (11.5-14.5)
[2017-01-01 07:31] LABS: WHITE BLOOD COUNT 9.1 K/uL (4.8-10.8)
[2017-01-01 07:51] LABS: POTASSIUM 4.2 mmol/L (3.6-5.2)
[2017-01-01 09:00] LABS: BASOPHIL 1 % (0-2); TOTAL CELLS COUNTED 100
[2017-01-01 09:01] LABS: NEUTROPHIL 51 % (50-75)
[2017-01-01] MEDS: Potassium Chloride 20 mEq ER Tab PO SCH (10:21)
[2017-01-01] MEDS: Pantoprazole 40 mg EC Tab PO SCH (10:21)
[2017-01-01] MEDS: EPOETIN ALFA 10,000 UNIT/ML ML SC SCH (10:22)
--- NOTE | 2017-01-01 21:22 | CP.PCM.PN ---
Subjective - Date & Time of Evaluation Date of Evaluation: 01/01/17 Time of Evaluation: 17:10 - Subjective Subjective: Patient feels better today. Platlets 56,000 today. Will request podiatry consult with Dr Thompson. Repeat labs in AM. Objective - Vital Signs/Intake and Output Vital Signs (last 24 hours): Temp Pulse Resp BP Pulse Ox 97.3 F L 69 20 149/75 100 01/01/17 15:00 01/01/17 15:00 01/01/17 15:00 01/01/17 15:00 01/01/17 15:00 Intake and Output: 01/01/17 01/02/17 18:59 06:59 Intake Total 830 Output Total 700 Balance 130 - Medications Medications: Current Medications Albuterol Sulfate (Albuterol 0.042% Inhal Tricia (1.25mg/3ml) Ud) 1.25 mg INH RQ6 [facility] Last Admin: 01/01/17 19:31 Dose: 1.25 mg Epoetin Arturo (Procrit) 10,000 unit SC MWF [facility] Last Admin: 01/01/17 10:22 Dose: 10,000 unit Ferrous Sulfate (Feosol) 325 mg PO DAILY [facility] Last Admin: 01/01/17 10:21 Dose: 325 mg Furosemide (Lasix) 40 mg PO DAILY [facility] Last Admin: 01/01/17 10:21 Dose: 40 mg Aztreonam 1 gm/ Sodium (Chloride) 100 mls @ 100 mls/hr IVPB Q8H [facility] Last Admin: 01/01/17 14:17 Dose: 100 mls/hr Insulin Glargine (Lantus) 12 unit SC HS [facility] Last Admin: 12/31/16 21:28 Dose: 12 units Linezolid (Zyvox) 600 mg PO Q12 [facility] Loperamide HCl (Imodium) 2 mg PO Q4H PRN PRN Reason: Diarrhea Lorazepam (Ativan) 0.5 mg PO HS PRN PRN Reason: Anxiety Last Admin: 12/30/16 06:48 Dose: 0.5 mg Magnesium Hydroxide (Milk Of Magnesia) 30 ml PO Q4H PRN PRN Reason: Constipation Pantoprazole Sodium (Protonix Ec Tab) 40 mg PO DAILY [facility] Last Admin: 01/01/17 10:21 Dose: 40 mg Potassium Chloride (K-Dur 20 Meq Er Tab) 20 meq PO DAILY [facility] Last Admin: 01/01/17 10:21 Dose: 20 meq Tramadol HCl (Ultram) 50 mg PO Q4H PRN PRN Reason: Pain, moderate (4-7) Last Admin: 12/30/16 00:26 Dose: 50 mg - Labs Labs: 01/01/17 07:08 01/01/17 07:08 PT 13.0 SECONDS (9.7-12.2) H 12/29/16 19:29 INR 1.1 12/29/16 19:29 APTT 31 SECONDS (21-34) 12/29/16 19:29 - Constitutional Appears: Chronically Ill - Head Exam Head Exam: NORMOCEPHALIC - Eye Exam Eye Exam: Normal appearance Pupil Exam: NORMAL ACCOMODATION - ENT Exam ENT Exam: Normal Exam - Neck Exam Neck Exam: Normal Inspection - Respiratory Exam Respiratory Exam: Decreased Breath Sounds - GI/Abdominal Exam GI & Abdominal Exam: Hyperactive Bowel Sounds - Rectal Exam Rectal Exam: Deferred - Exam External exam: NORMAL EXTERNAL EXAM - Extremities Exam Extremities Exam: Tenderness - Back Exam Back Exam: NORMAL INSPECTION - Neurological Exam Neurological Exam: Oriented x3 - Psychiatric Exam Psychiatric exam: Depressed - Skin Skin Exam: Dry Assessment and Plan (1) Emphysema (subcutaneous) resulting from procedure Status: Acute (2) Myeloproliferative disease Status: Acute (3) Thrombocytopenia Status: Acute (4) Anemia Status: Acute (5) Osteoarthritis Status: Acute (6) Peripheral edema Status: Acute (7) Thrombophlebitis Status: Acute (8) Osteomyelitis Status: Acute
[2017-01-01] MEDS: (Lantus) Insulin Glargine, Recombinant SC SCH (21:54)
[2017-01-02] MEDS: Albuterol 0.042% Inhal Sol (1.25 mg/3 mL) UD INH SCH ×4 (01:31→20:39)
[2017-01-02] MEDS: Aztreonam 1 GM in Sodium Chloride 0.9% 100 ML IVPB SCH ×3 (06:16→22:21)
[2017-01-02] MEDS: Potassium Chloride 20 mEq ER Tab PO SCH (10:00)
[2017-01-02] MEDS: Pantoprazole 40 mg EC Tab PO SCH (10:01)
[2017-01-02 11:28] LABS: BASO % 0.4 % (0.0-2.0); EOS % 0.1 % (0.0-4.0); HEMATOCRIT 32.9 % (34.0-47.0); LYMPH # 1.9 K/uL (1.0-4.3); LYMPH % 25.2 % (20.0-40.0); MEAN PLATELET VOLUME 9.9 fL (7.2-11.7); MONO # 1.4 K/uL (0.0-0.8); MONO % 18.5 % (0.0-10.0); NRBC % 0.6 % (0.0-2.0); WHITE BLOOD COUNT 7.3 K/uL (4.8-10.8)
--- NOTE | 2017-01-02 12:37 | CP.PCM.CON ---
History of Present Illness - History of Present Illness History of Present Illness: Podiatry Consult Note for Dr. Thompson: This is a 76 year old female patient w/ pmh thrombocytopenia, myleoproliferative disorder, CHF, emphysema, thrombophlebitis, DJD, DM, osteomyelitis right calcaneus seen at bedside today following request for podiatry consult. Pt is well known to Dr. Thompson who she has been seeing for a chronic right heel ulceration. Pt recently admitted for thrombocytopenia. Pt states that she is feeling better today. Denies f/n/v/c/sob/cp at this time. Denies any pain or discomfort to the lower extremities at this time, however does say her feet feel tender when she is "on them for too long". Denies any other complaints today. Review of Systems - Review of Systems Review of Systems: All systems reviewed and found to be negative except HPI findings above Past Patient History - Infectious Disease Hx of Infectious Diseases: None - Tetanus Immunizations Tetanus Immunization: Unknown, Up to Date - Past Medical History & Family History Past Medical History?: Yes - Past Social History Smoking Status: Never Smoked Chewing Tobacco Use: No Cigar Use: No - CARDIAC Hx Congestive Heart Failure: Yes Hx Heart Murmur: Yes Hx Hypertension: Yes Hx Peripheral Edema: Yes - PULMONARY Hx Emphysema: Yes Hx Pneumonia: Yes - NEUROLOGICAL Hx Neurological Disorder: No Hx Vertigo: Yes - HEENT Hx HEENT Problems: No - RENAL Hx Chronic Kidney Disease: No - ENDOCRINE/METABOLIC Hx Diabetes Mellitus Type 2: Yes - HEMATOLOGICAL/ONCOLOGICAL Hx Blood Disorders: Yes Hx Anemia: Yes Hx Blood Transfusions: Yes - INTEGUMENTARY Hx Dermatological Problems: No Other/Comment: BLE w/ cauliflowered skin - MUSCULOSKELETAL/RHEUMATOLOGICAL Hx Arthritis: Yes Hx Back Pain: Yes Hx Degenerative Joint Disease: Yes Hx Falls: No Hx Osteomyelitis: Yes Hx Unsteady Gait: Yes (uses cane/walker at home) - GASTROINTESTINAL Hx Gastrointestinal Disorders: No Hx Gastritis: Yes Hx Hemorrhoids: Yes - GENITOURINARY/GYNECOLOGICAL Hx Genitourinary Disorders: No - PSYCHIATRIC Hx Anxiety: Yes Hx Depression: Yes Hx Substance Use: No - SURGICAL HISTORY Hx Cholecystectomy: Yes (in 2010) Hx Tonsillectomy: Yes (8yrs old) - ANESTHESIA Hx Anesthesia: Yes Hx Anesthesia Reactions: No Hx Malignant Hyperthermia: No Meds Allergies/Adverse Reactions: Allergies Allergy/AdvReac Type Severity Reaction Status Date / Time Gadolinium-Containing Allergy ITCHING Verified 12/13/16 15:45 Contrast Medi - Medications Medications: Current Medications Albuterol Sulfate (Albuterol 0.042% Inhal Tricia (1.25mg/3ml) Ud) 1.25 mg INH RQ6 [facility] Last Admin: 01/02/17 07:28 Dose: 1.25 mg Epoetin Arturo (Procrit) 10,000 unit SC MWF [facility] Last Admin: 01/01/17 10:22 Dose: 10,000 unit Ferrous Sulfate (Feosol) 325 mg PO DAILY [facility] Last Admin: 01/02/17 10:01 Dose: 325 mg Furosemide (Lasix) 40 mg PO DAILY [facility] Last Admin: 01/02/17 10:01 Dose: 40 mg Aztreonam 1 gm/ Sodium (Chloride) 100 mls @ 100 mls/hr IVPB Q8H [facility] Last Admin: 01/02/17 06:16 Dose: 100 mls/hr Insulin Glargine (Lantus) 12 unit SC HS [facility] Last Admin: 01/01/17 21:54 Dose: 12 units Linezolid (Zyvox) 600 mg PO Q12 [facility] Last Admin: 01/02/17 10:00 Dose: 600 mg Loperamide HCl (Imodium) 2 mg PO Q4H PRN PRN Reason: Diarrhea Lorazepam (Ativan) 0.5 mg PO HS PRN PRN Reason: Anxiety Last Admin: 12/30/16 06:48 Dose: 0.5 mg Magnesium Hydroxide (Milk Of Magnesia) 30 ml PO Q4H PRN PRN Reason: Constipation Pantoprazole Sodium (Protonix Ec Tab) 40 mg PO DAILY [facility] Last Admin: 01/02/17 10:01 Dose: 40 mg Potassium Chloride (K-Dur 20 Meq Er Tab) 20 meq PO DAILY [facility] Last Admin: 01/02/17 10:00 Dose: 20 meq Tramadol HCl (Ultram) 50 mg PO Q4H PRN PRN Reason: Pain, moderate (4-7) Last Admin: 12/30/16 00:26 Dose: 50 mg Physical Exam - Constitutional Appears: Non-toxic, No Acute Distress - Extremities Exam Extremities exam: Negative for: calf tenderness Additional comments: Bilateral lower extremity exam: VASC- DP/PT pulses non-palpable BL, cap refill < 3 sec x 10, skin temp runs from warm to cool (proximal to distal) BL, 2+ pitting edema is note to lower legs BL (L>R) NEURO- protective sensation diminished BL, light touch sensation is intact BL DERM- there is a superficial ulceration (duvall grade I) noted to the right plantar heel measuring approx. 1.5x1.0x0.4 cm with a macerated border, mixed fibrogranular base, negative probe to bone, negative undermining or sinus tracking, negative malodor, slight serosanguinous drainage noted to bandage, no drainage, no surrounding erythema, no open wounds or ulcerations noted to left lower extremity and no signs infection (there is however lichenification of the lower leg skin noted) ORTHO- slight tenderness noted to palpation of right foot ulceration - Neurological Exam Neurological exam: Alert, CN II-XII Intact - Psychiatric Exam Psychiatric exam: Normal Affect, Normal Mood Results - Vital Signs Recent Vital Signs: Last Vital Signs Temp 97.4 F L 01/02/17 08:00 Pulse 78 01/02/17 08:28 Resp 20 01/02/17 08:00 BP 132/78 01/02/17 10:01 Pulse Ox 99 01/02/17 08:00 - Labs Result Diagrams: 01/02/17 11:19 01/01/17 07:08 Labs: Laboratory Results - last 24 hr 01/01/17 01/01/17 01/02/17 16:27 21:16 06:46 WBC RBC Hgb Hct MCV MCH MCHC RDW Plt Count MPV Neut % (Auto) Lymph % (Auto) Dixie % (Auto) Eos % (Auto) Baso % (Auto) Neut # Lymph # Dixie # Eos # Baso # POC Glucose (mg/dL) 237 H 267 H 111 H 01/02/17 01/02/17 11:19 11:56 WBC 7.3 RBC 3.39 L Hgb 10.5 L Hct 32.9 L MCV 97.0 MCH 31.0 MCHC 32.0 L RDW 23.0 H Plt Count 51 L MPV 9.9 Neut % (Auto) 55.8 Lymph % (Auto) 25.2 Dixie % (Auto) 18.5 H Eos % (Auto) 0.1 Baso % (Auto) 0.4 Neut # 4.1 Lymph # 1.9 Dixie # 1.4 H Eos # 0.0 Baso # 0.0 POC Glucose (mg/dL) 167 H Assessment & Plan - Assessment and Plan (Free Text) Assessment: 76 yo female patient with chronic ulceration of right foot 2/2 diabetic neuropathy Plan: Pt S&E at the bedside Plan discussed with attending Dr. Thompson in detail Chart, labs and vitals reviewed: afebrile, no leukocytosis Bone scan 12/21/16: changes consistent with OM right calcaneus Wound cx right foot (12/15/16): + pseudomonas Right foot wound ulceration cleansed with saline, dressed applied with W2D betadine and kerlix Offloading heel cushions ordered: to be worn at all times in bed to avoid pressure to feet Stable per podiatry Will continue to follow while patient remains in house.
--- NOTE | 2017-01-02 13:49 | CP.PCM.PN ---
Subjective - Date & Time of Evaluation Date of Evaluation: 01/02/17 Time of Evaluation: 09:00 - Subjective Subjective: VRE from wound zyvox added PLTS better cont rx Objective - Vital Signs/Intake and Output Vital Signs (last 24 hours): Temp Pulse Resp BP Pulse Ox 97.4 F L 78 20 132/78 99 01/02/17 08:00 01/02/17 08:28 01/02/17 08:00 01/02/17 10:01 01/02/17 08:00 Intake and Output: 01/02/17 01/02/17 06:59 18:59 Intake Total 350 Output Total 700 Balance -350 - Medications Medications: Current Medications Albuterol Sulfate (Albuterol 0.042% Inhal Tricia (1.25mg/3ml) Ud) 1.25 mg INH RQ6 [facility] Last Admin: 01/02/17 13:20 Dose: 1.25 mg Epoetin Arturo (Procrit) 10,000 unit SC MWF [facility] Last Admin: 01/01/17 10:22 Dose: 10,000 unit Ferrous Sulfate (Feosol) 325 mg PO DAILY [facility] Last Admin: 01/02/17 10:01 Dose: 325 mg Furosemide (Lasix) 40 mg PO DAILY [facility] Last Admin: 01/02/17 10:01 Dose: 40 mg Aztreonam 1 gm/ Sodium (Chloride) 100 mls @ 100 mls/hr IVPB Q8H [facility] Last Admin: 01/02/17 06:16 Dose: 100 mls/hr Insulin Glargine (Lantus) 12 unit SC HS [facility] Last Admin: 01/01/17 21:54 Dose: 12 units Linezolid (Zyvox) 600 mg PO Q12 [facility] Last Admin: 01/02/17 10:00 Dose: 600 mg Loperamide HCl (Imodium) 2 mg PO Q4H PRN PRN Reason: Diarrhea Lorazepam (Ativan) 0.5 mg PO HS PRN PRN Reason: Anxiety Last Admin: 12/30/16 06:48 Dose: 0.5 mg Magnesium Hydroxide (Milk Of Magnesia) 30 ml PO Q4H PRN PRN Reason: Constipation Pantoprazole Sodium (Protonix Ec Tab) 40 mg PO DAILY [facility] Last Admin: 01/02/17 10:01 Dose: 40 mg Potassium Chloride (K-Dur 20 Meq Er Tab) 20 meq PO DAILY [facility] Last Admin: 01/02/17 10:00 Dose: 20 meq Tramadol HCl (Ultram) 50 mg PO Q4H PRN PRN Reason: Pain, moderate (4-7) Last Admin: 12/30/16 00:26 Dose: 50 mg - Labs Labs: 01/02/17 11:19 01/01/17 07:08 PT 13.0 SECONDS (9.7-12.2) H 12/29/16 19:29 INR 1.1 12/29/16 19:29 APTT 31 SECONDS (21-34) 12/29/16 19:29 - Constitutional Appears: Non-toxic, Chronically Ill - Head Exam Head Exam: NORMOCEPHALIC - Eye Exam Eye Exam: absent: Scleral icterus - ENT Exam ENT Exam: Mucous Membranes Dry - Neck Exam Neck Exam: absent: Lymphadenopathy - Respiratory Exam Respiratory Exam: Decreased Breath Sounds - Cardiovascular Exam Cardiovascular Exam: REGULAR RHYTHM - GI/Abdominal Exam GI & Abdominal Exam: Distended, Soft Assessment and Plan (1) Emphysema (subcutaneous) resulting from procedure Status: Acute (2) Myeloproliferative disease Status: Acute (3) Osteomyelitis of right tibia Status: Acute (4) Thrombocytopenia Status: Acute (5) Acute on chronic diastolic (congestive) heart failure Status: Acute (6) Anemia Status: Acute (7) Degenerative disc disease at L5-S1 level Status: Acute (8) Diabetes mellitus type 2 in obese Status: Acute (9) Heel ulcer Status: Acute (10) Myelodysplasia, high grade Status: Acute (11) Osteomyelitis Status: Acute (12) Osteomyelitis Status: Acute (13) Pancytopenia Status: Acute (14) Pneumonia Status: Acute
[2017-01-02] MEDS: (Lantus) Insulin Glargine, Recombinant SC SCH (22:22)
--- NOTE | 2017-01-02 22:25 | CP.PCM.PN ---
Subjective - Date & Time of Evaluation Date of Evaluation: 01/02/17 Time of Evaluation: 13:20 - Subjective Subjective: Less shortness of breath today. Platlets 51,000 . Patient evaluated by Dr Prabhakar . Zyvox added to the regimen of antibiotics. Objective - Vital Signs/Intake and Output Vital Signs (last 24 hours): Temp Pulse Resp BP Pulse Ox 97.3 F L 71 20 118/62 97 01/02/17 16:00 01/02/17 16:00 01/02/17 16:00 01/02/17 16:00 01/02/17 16:00 Intake and Output: 01/02/17 01/03/17 18:59 06:59 Intake Total 100 Balance 100 - Medications Medications: Current Medications Albuterol Sulfate (Albuterol 0.042% Inhal Tricia (1.25mg/3ml) Ud) 1.25 mg INH RQ6 [facility] Last Admin: 01/02/17 20:39 Dose: 1.25 mg Epoetin Arturo (Procrit) 10,000 unit SC MWF [facility] Last Admin: 01/01/17 10:22 Dose: 10,000 unit Ferrous Sulfate (Feosol) 325 mg PO DAILY [facility] Last Admin: 01/02/17 10:01 Dose: 325 mg Furosemide (Lasix) 40 mg PO DAILY [facility] Last Admin: 01/02/17 10:01 Dose: 40 mg Aztreonam 1 gm/ Sodium (Chloride) 100 mls @ 100 mls/hr IVPB Q8H [facility] Last Admin: 01/02/17 14:42 Dose: 100 mls/hr Insulin Glargine (Lantus) 12 unit SC HS [facility] Last Admin: 01/01/17 21:54 Dose: 12 units Linezolid (Zyvox) 600 mg PO Q12 [facility] Last Admin: 01/02/17 10:00 Dose: 600 mg Loperamide HCl (Imodium) 2 mg PO Q4H PRN PRN Reason: Diarrhea Lorazepam (Ativan) 0.5 mg PO HS PRN PRN Reason: Anxiety Last Admin: 12/30/16 06:48 Dose: 0.5 mg Magnesium Hydroxide (Milk Of Magnesia) 30 ml PO Q4H PRN PRN Reason: Constipation Pantoprazole Sodium (Protonix Ec Tab) 40 mg PO DAILY [facility] Last Admin: 01/02/17 10:01 Dose: 40 mg Potassium Chloride (K-Dur 20 Meq Er Tab) 20 meq PO DAILY [facility] Last Admin: 01/02/17 10:00 Dose: 20 meq Tramadol HCl (Ultram) 50 mg PO Q4H PRN PRN Reason: Pain, moderate (4-7) Last Admin: 01/02/17 14:53 Dose: 50 mg - Labs Labs: 01/02/17 11:19 01/01/17 07:08 PT 13.0 SECONDS (9.7-12.2) H 12/29/16 19:29 INR 1.1 12/29/16 19:29 APTT 31 SECONDS (21-34) 12/29/16 19:29 - Constitutional Appears: Chronically Ill - Head Exam Head Exam: NORMOCEPHALIC - Eye Exam Eye Exam: Normal appearance Pupil Exam: NORMAL ACCOMODATION - ENT Exam ENT Exam: Normal Oropharynx - Neck Exam Neck Exam: Normal Inspection - Respiratory Exam Respiratory Exam: Decreased Breath Sounds - Cardiovascular Exam Cardiovascular Exam: REGULAR RHYTHM - GI/Abdominal Exam GI & Abdominal Exam: Hyperactive Bowel Sounds - Rectal Exam Rectal Exam: Deferred - Exam External exam: NORMAL EXTERNAL EXAM - Extremities Exam Extremities Exam: Joint Swelling - Back Exam Back Exam: NORMAL INSPECTION - Neurological Exam Neurological Exam: Oriented x3 - Psychiatric Exam Psychiatric exam: Depressed - Skin Skin Exam: Dry Assessment and Plan (1) Emphysema (subcutaneous) resulting from procedure Status: Acute (2) Myeloproliferative disease Status: Acute (3) Thrombocytopenia Status: Acute (4) Anemia Status: Acute (5) Osteoarthritis Status: Acute (6) Peripheral edema Status: Acute (7) Thrombophlebitis Status: Acute (8) Osteomyelitis Status: Acute
[2017-01-03] MEDS: Albuterol 0.042% Inhal Sol (1.25 mg/3 mL) UD INH SCH ×4 (01:57→19:04)
[2017-01-03] MEDS: Aztreonam 1 GM in Sodium Chloride 0.9% 100 ML IVPB SCH ×3 (06:20→22:33)
[2017-01-03 07:01] LABS: BASO % 0.6 % (0.0-2.0); EOS % 0.3 % (0.0-4.0); HEMATOCRIT 31.4 % (34.0-47.0); LYMPH % 29.9 % (20.0-40.0); MEAN CELL VOLUME 96.4 fL (81.0-99.0); MEAN CORPUSCULAR HEMOGLOBIN 30.9 pg (27.0-31.0); MEAN CORPUSCULAR HGB CONC 32.1 g/dL (33.0-37.0); MEAN PLATELET VOLUME 10.1 fL (7.2-11.7); MONO # 1.4 K/uL (0.0-0.8); MONO % 20.8 % (0.0-10.0); NRBC % 0.9 % (0.0-2.0); PLATELET COUNT 43 K/uL (130-400); RED CELL DISTRIBUTION WIDTH 22.2 % (11.5-14.5); WHITE BLOOD COUNT 6.8 K/uL (4.8-10.8)
[2017-01-03 07:47] LABS: CHLORIDE 104 mmol/L (98-107); POTASSIUM 4.3 mmol/L (3.6-5.2); SODIUM 139 mmol/L (132-148)
[2017-01-03 07:49] LABS: AST/SGOT 25 U/L (14-36); BILIRUBIN,TOTAL 0.7 mg/dL (0.2-1.3); CARBON DIOXIDE 29 mmol/L (22-30); GFR AFRICAN-AMERICAN > 60
[2017-01-03 07:50] LABS: ALB/GLOB RATIO 0.5 (1.0-2.1); ALKALINE PHOSPHATASE 132 U/L (38-126); ALT/SGPT 43 U/L (9-52); BLOOD UREA NITROGEN 25 mg/dL (7-17); GLUCOSE,RANDOM 70 mg/dL (65-105); TOTAL PROTEIN 7.2 g/dL (6.3-8.3)
[2017-01-03] MEDS: EPOETIN ALFA 10,000 UNIT/ML ML SC SCH (09:19)
[2017-01-03] MEDS: Potassium Chloride 20 mEq ER Tab PO SCH (09:20)
[2017-01-03] MEDS: Pantoprazole 40 mg EC Tab PO SCH (09:20)
[2017-01-03 09:23] LABS: NEUTROPHIL 47 % (50-75); REACTIVE LYMPHOCYTES 1 % (0-0); TOTAL CELLS COUNTED 100
--- NOTE | 2017-01-03 11:51 | CP.PCM.PN ---
Subjective - Date & Time of Evaluation Date of Evaluation: 01/03/17 Time of Evaluation: 11:10 - Subjective Subjective: Podiatry Progress Note- Dr. Thompson: 76 year old female patient seen at bedside this morning for f/u of chronic right heel ulceration. Pt seen resting comfortably in bed at time of visit, appears aware and alert, NAD. Seen wearing offloading boots to bilateral feet. Does complain of some slight tenderness to the right foot today. Denies f/n/v/c/ sob/cp at this time, does complain of some fatigue today. Denies any other problems at this time. Objective - Vital Signs/Intake and Output Vital Signs (last 24 hours): Temp Pulse Resp BP Pulse Ox 97.4 F L 74 20 128/76 98 01/03/17 07:00 01/03/17 07:00 01/03/17 07:00 01/03/17 09:20 01/03/17 07:00 Intake and Output: 01/03/17 01/03/17 06:59 18:59 Intake Total 550 Output Total 1300 Balance -750 - Medications Medications: Current Medications Albuterol Sulfate (Albuterol 0.042% Inhal Tricia (1.25mg/3ml) Ud) 1.25 mg INH RQ6 [facility] Last Admin: 01/03/17 07:30 Dose: 1.25 mg Epoetin Arturo (Procrit) 10,000 unit SC MWF [facility] Last Admin: 01/03/17 09:19 Dose: 10,000 unit Ferrous Sulfate (Feosol) 325 mg PO DAILY [facility] Last Admin: 01/03/17 09:20 Dose: 325 mg Furosemide (Lasix) 40 mg PO DAILY [facility] Last Admin: 01/03/17 09:20 Dose: 40 mg Aztreonam 1 gm/ Sodium (Chloride) 100 mls @ 100 mls/hr IVPB Q8H [facility] Last Admin: 01/03/17 06:20 Dose: 100 mls/hr Insulin Glargine (Lantus) 12 unit SC HS [facility] Last Admin: 01/02/17 22:22 Dose: 12 units Linezolid (Zyvox) 600 mg PO Q12 [facility] Last Admin: 01/03/17 09:20 Dose: 600 mg Loperamide HCl (Imodium) 2 mg PO Q4H PRN PRN Reason: Diarrhea Lorazepam (Ativan) 0.5 mg PO HS PRN PRN Reason: Anxiety Last Admin: 12/30/16 06:48 Dose: 0.5 mg Magnesium Hydroxide (Milk Of Magnesia) 30 ml PO Q4H PRN PRN Reason: Constipation Pantoprazole Sodium (Protonix Ec Tab) 40 mg PO DAILY [facility] Last Admin: 01/03/17 09:20 Dose: 40 mg Potassium Chloride (K-Dur 20 Meq Er Tab) 20 meq PO DAILY [facility] Last Admin: 01/03/17 09:20 Dose: 20 meq Tramadol HCl (Ultram) 50 mg PO Q4H PRN PRN Reason: Pain, moderate (4-7) Last Admin: 01/02/17 14:53 Dose: 50 mg - Labs Labs: 01/03/17 06:47 01/03/17 06:47 PT 13.0 SECONDS (9.7-12.2) H 12/29/16 19:29 INR 1.1 12/29/16 19:29 APTT 31 SECONDS (21-34) 12/29/16 19:29 - Constitutional Appears: Non-toxic, No Acute Distress - Extremities Exam Extremities Exam: absent: Calf Tenderness Additional comments: Bilateral lower extremity exam: VASC- DP/PT pulses non-palpable BL, cap refill < 3 sec x 10, skin temp runs from warm to cool (proximal to distal) BL, 2+ pitting edema is note to lower legs BL (L>R) NEURO- protective sensation diminished BL, light touch sensation is intact BL DERM- there is a superficial ulceration (duvall grade I) noted to the right plantar heel measuring approx. 1.5x1.0x0.4 cm with a macerated border, mixed fibrogranular base, negative probe to bone, negative undermining or sinus tracking, negative malodor, slight serosanguinous drainage noted to bandage, no drainage, no surrounding erythema, no open wounds or ulcerations noted to left lower extremity and no signs infection (there is however lichenification of the lower leg skin noted) ORTHO- slight tenderness noted to palpation of right foot ulceration - Neurological Exam Neurological Exam: Alert, Awake - Psychiatric Exam Psychiatric exam: Normal Affect, Normal Mood Assessment and Plan - Assessment and Plan (Free Text) Assessment: 76 yo female patient with chronic ulceration of right foot 2/2 diabetic neuropathy Plan: Pt S&E at the bedside Plan discussed with attending Dr. Thompson Chart, labs and vitals reviewed: afebrile, no leukocytosis Bone scan 12/21/16: changes consistent with OM right calcaneus Wound cx right foot (12/15/16): + pseudomonas Dressing applied to right foot with W2D betadine, DSD and kerlix, OCHOA wrap applied to right leg OCHOA wrap to left leg Offloading heel cushions to be worn at all times while patient is in bed Stable per podiatry will follow.
--- NOTE | 2017-01-03 16:28 | CP.PCM.PN ---
Subjective - Date & Time of Evaluation Date of Evaluation: 01/03/17 Time of Evaluation: 08:00 - Subjective Subjective: prev workup neg for OM iv rx in progress cultures reviewed more aleert no fever Objective - Vital Signs/Intake and Output Vital Signs (last 24 hours): Temp Pulse Resp BP Pulse Ox 98.2 F 73 20 147/79 97 01/03/17 15:56 01/03/17 15:56 01/03/17 15:56 01/03/17 15:56 01/03/17 15:56 Intake and Output: 01/03/17 01/03/17 06:59 18:59 Intake Total 550 100 Output Total 1300 500 Balance -750 -400 - Medications Medications: Current Medications Albuterol Sulfate (Albuterol 0.042% Inhal Tricia (1.25mg/3ml) Ud) 1.25 mg INH RQ6 [facility] Last Admin: 01/03/17 13:24 Dose: 1.25 mg Epoetin Arturo (Procrit) 10,000 unit SC MWF [facility] Last Admin: 01/03/17 09:19 Dose: 10,000 unit Ferrous Sulfate (Feosol) 325 mg PO DAILY [facility] Last Admin: 01/03/17 09:20 Dose: 325 mg Furosemide (Lasix) 40 mg PO DAILY [facility] Last Admin: 01/03/17 09:20 Dose: 40 mg Aztreonam 1 gm/ Sodium (Chloride) 100 mls @ 100 mls/hr IVPB Q8H [facility] Last Admin: 01/03/17 14:01 Dose: 100 mls/hr Insulin Glargine (Lantus) 12 unit SC HS [facility] Last Admin: 01/02/17 22:22 Dose: 12 units Linezolid (Zyvox) 600 mg PO Q12 [facility] Last Admin: 01/03/17 09:20 Dose: 600 mg Loperamide HCl (Imodium) 2 mg PO Q4H PRN PRN Reason: Diarrhea Lorazepam (Ativan) 0.5 mg PO HS PRN PRN Reason: Anxiety Last Admin: 12/30/16 06:48 Dose: 0.5 mg Magnesium Hydroxide (Milk Of Magnesia) 30 ml PO Q4H PRN PRN Reason: Constipation Pantoprazole Sodium (Protonix Ec Tab) 40 mg PO DAILY [facility] Last Admin: 01/03/17 09:20 Dose: 40 mg Potassium Chloride (K-Dur 20 Meq Er Tab) 20 meq PO DAILY [facility] Last Admin: 01/03/17 09:20 Dose: 20 meq Tramadol HCl (Ultram) 50 mg PO Q4H PRN PRN Reason: Pain, moderate (4-7) Last Admin: 01/02/17 14:53 Dose: 50 mg - Labs Labs: 01/03/17 06:47 01/03/17 06:47 PT 13.0 SECONDS (9.7-12.2) H 12/29/16 19:29 INR 1.1 12/29/16 19:29 APTT 31 SECONDS (21-34) 12/29/16 19:29 - Constitutional Appears: Non-toxic, Chronically Ill - Head Exam Head Exam: NORMOCEPHALIC - Eye Exam Eye Exam: PERRL - ENT Exam ENT Exam: Mucous Membranes Dry - Neck Exam Neck Exam: absent: Lymphadenopathy - Respiratory Exam Respiratory Exam: Decreased Breath Sounds - Cardiovascular Exam Cardiovascular Exam: REGULAR RHYTHM - GI/Abdominal Exam GI & Abdominal Exam: Distended - Extremities Exam Extremities Exam: Pedal Edema. absent: Calf Tenderness Additional comments: Bilateral lower extremity exam: VASC- DP/PT pulses non-palpable BL, cap refill < 3 sec x 10, skin temp runs from warm to cool (proximal to distal) BL, 2+ pitting edema is note to lower legs BL (L>R) NEURO- protective sensation diminished BL, light touch sensation is intact BL DERM- there is a superficial ulceration (duvall grade I) noted to the right plantar heel measuring approx. 1.5x1.0x0.4 cm with a macerated border, mixed fibrogranular base, negative probe to bone, negative undermining or sinus tracking, negative malodor, slight serosanguinous drainage noted to bandage, no drainage, no surrounding erythema, no open wounds or ulcerations noted to left lower extremity and no signs infection (there is however lichenification of the lower leg skin noted) ORTHO- slight tenderness noted to palpation of right foot ulceration - Additional Findings Additional findings: cont iv rx for cellulitis Assessment and Plan (1) Emphysema (subcutaneous) resulting from procedure Status: Acute (2) Myeloproliferative disease Status: Acute (3) Osteomyelitis of right tibia Status: Acute (4) Thrombocytopenia Status: Acute (5) Acute on chronic diastolic (congestive) heart failure Status: Acute (6) Anemia Status: Acute (7) Degenerative disc disease at L5-S1 level Status: Acute (8) Diabetes mellitus type 2 in obese Status: Acute (9) Heel ulcer Status: Acute (10) Myelodysplasia, high grade Status: Acute (11) Osteomyelitis Status: Acute (12) Osteomyelitis Status: Acute (13) Pancytopenia Status: Acute (14) Pneumonia Status: Acute
--- NOTE | 2017-01-03 17:36 | CP.PCM.CON ---
History of Present Illness - History of Present Illness History of Present Illness: 76 yo woman known to me from previous hospitalizations, admitted from assisted when routine lab work showed severe thrombocytopenia and decreased Hgb from baseline as well. Patient was relatively asymptomatic, given platelet transfusion. Patient developed increased SOB post transfusion, seen by Cardiology and I.D. Her CXRay has improved when compared to her prior admission. . She is c/o fatigue, poor appetite, denies nausea, vomiting. Currently her counts have returned to baseline Past Patient History - Infectious Disease Hx of Infectious Diseases: None - Tetanus Immunizations Tetanus Immunization: Unknown, Up to Date - Past Medical History & Family History Past Medical History?: Yes - Past Social History Smoking Status: Never Smoked Chewing Tobacco Use: No Cigar Use: No - CARDIAC Hx Congestive Heart Failure: Yes Hx Hypertension: Yes - PULMONARY Hx Emphysema: Yes Hx Pneumonia: Yes - NEUROLOGICAL Hx Neurological Disorder: No Hx Vertigo: Yes - HEENT Hx HEENT Problems: No - RENAL Hx Chronic Kidney Disease: No - ENDOCRINE/METABOLIC Hx Diabetes Mellitus Type 2: Yes - HEMATOLOGICAL/ONCOLOGICAL Hx Blood Disorders: Yes Hx Anemia: Yes Hx Blood Transfusions: Yes - INTEGUMENTARY Hx Dermatological Problems: No Other/Comment: BLE w/ cauliflowered skin - MUSCULOSKELETAL/RHEUMATOLOGICAL Hx Arthritis: Yes - GASTROINTESTINAL Hx Gastrointestinal Disorders: No Hx Gastritis: Yes Hx Hemorrhoids: Yes - GENITOURINARY/GYNECOLOGICAL Hx Genitourinary Disorders: No - PSYCHIATRIC Hx Anxiety: Yes Hx Depression: Yes Hx Substance Use: No - SURGICAL HISTORY Hx Cholecystectomy: Yes (in 2010) Hx Tonsillectomy: Yes (8yrs old) - ANESTHESIA Hx Anesthesia: Yes Hx Anesthesia Reactions: No Hx Malignant Hyperthermia: No Meds Allergies/Adverse Reactions: Allergies Allergy/AdvReac Type Severity Reaction Status Date / Time Gadolinium-Containing Allergy ITCHING Verified 12/13/16 15:45 Contrast Medi - Medications Medications: Current Medications Albuterol Sulfate (Albuterol 0.042% Inhal Tricia (1.25mg/3ml) Ud) 1.25 mg INH RQ6 [facility] Last Admin: 01/03/17 13:24 Dose: 1.25 mg Epoetin Arturo (Procrit) 10,000 unit SC MWF [facility] Last Admin: 01/03/17 09:19 Dose: 10,000 unit Ferrous Sulfate (Feosol) 325 mg PO DAILY [facility] Last Admin: 01/03/17 09:20 Dose: 325 mg Furosemide (Lasix) 40 mg PO DAILY [facility] Last Admin: 01/03/17 09:20 Dose: 40 mg Aztreonam 1 gm/ Sodium (Chloride) 100 mls @ 100 mls/hr IVPB Q8H [facility] Last Admin: 01/03/17 14:01 Dose: 100 mls/hr Insulin Glargine (Lantus) 12 unit SC HS [facility] Last Admin: 01/02/17 22:22 Dose: 12 units Linezolid (Zyvox) 600 mg PO Q12 [facility] Last Admin: 01/03/17 09:20 Dose: 600 mg Loperamide HCl (Imodium) 2 mg PO Q4H PRN PRN Reason: Diarrhea Lorazepam (Ativan) 0.5 mg PO HS PRN PRN Reason: Anxiety Last Admin: 12/30/16 06:48 Dose: 0.5 mg Magnesium Hydroxide (Milk Of Magnesia) 30 ml PO Q4H PRN PRN Reason: Constipation Pantoprazole Sodium (Protonix Ec Tab) 40 mg PO DAILY [facility] Last Admin: 01/03/17 09:20 Dose: 40 mg Potassium Chloride (K-Dur 20 Meq Er Tab) 20 meq PO DAILY [facility] Last Admin: 01/03/17 09:20 Dose: 20 meq Tramadol HCl (Ultram) 50 mg PO Q4H PRN PRN Reason: Pain, moderate (4-7) Last Admin: 01/02/17 14:53 Dose: 50 mg Results - Vital Signs Recent Vital Signs: Last Vital Signs Temp 98.2 F 01/03/17 15:56 Pulse 73 01/03/17 15:56 Resp 20 01/03/17 15:56 BP 147/79 01/03/17 15:56 Pulse Ox 97 01/03/17 15:56 - Labs Result Diagrams: 01/03/17 06:47 01/03/17 06:47 Labs: Laboratory Results - last 24 hr 01/02/17 01/03/17 01/03/17 21:16 06:22 06:47 WBC RBC Hgb Hct MCV MCH MCHC RDW Plt Count MPV Neut % (Auto) Lymph % (Auto) [place] % (Auto) Eos % (Auto) Baso % (Auto) Neut # Lymph # [place] # Eos # Baso # Neutrophils % (Manual) Lymphocytes % (Manual) Reactive Lymphs % Monocytes % (Manual) Platelet Estimate Hypochromasia (manual) Poikilocytosis (manual Anisocytosis (manual) Microcytosis (manual) Macrocytosis (manual) Target Cells Tear Drop Cells Sodium 139 Potassium 4.3 Chloride 104 Carbon Dioxide 29 Anion Gap 10 BUN 25 H Creatinine 0.7 Est GFR ( Amer) > 60 Est GFR (Non-Af Amer) > 60 POC Glucose (mg/dL) 329 H 76 Random Glucose 70 Calcium 9.0 Total Bilirubin 0.7 AST 25 ALT 43 Alkaline Phosphatase 132 H D Total Protein 7.2 Albumin 2.4 L Globulin 4.8 H Albumin/Globulin Ratio 0.5 L 01/03/17 01/03/17 01/03/17 06:47 12:02 16:29 WBC 6.8 RBC 3.26 L Hgb 10.1 L Hct 31.4 L MCV 96.4 MCH 30.9 MCHC 32.1 L RDW 22.2 H Plt Count 43 L MPV 10.1 Neut % (Auto) 48.4 L Lymph % (Auto) 29.9 [place] % (Auto) 20.8 H Eos % (Auto) 0.3 Baso % (Auto) 0.6 Neut # 3.3 Lymph # 2.0 [place] # 1.4 H Eos # 0.0 Baso # 0.0 Neutrophils % (Manual) 47 L Lymphocytes % (Manual) 32 Reactive Lymphs % 1 H Monocytes % (Manual) 20 H Platelet Estimate Decreased L Hypochromasia (manual) Slight Poikilocytosis (manual Slight Anisocytosis (manual) Slight Microcytosis (manual) Slight Macrocytosis (manual) Slight Target Cells Slight Tear Drop Cells Slight Sodium Potassium Chloride Carbon Dioxide Anion Gap BUN Creatinine Est GFR ( Amer) Est GFR (Non-Af Amer) POC Glucose (mg/dL) 161 H 229 H Random Glucose Calcium Total Bilirubin AST ALT Alkaline Phosphatase Total Protein Albumin Globulin Albumin/Globulin Ratio Assessment & Plan (1) Myeloproliferative disease Assessment and Plan: 76 yo woman with pancytopenia, relatively stable in the past few months, new acute decrease in her counts, etiology of which is unclear,? antibiotics in the past. Will add po folic acid and recheck B12 and ferritin prior to d/c in AM. She is asymptomatic today, except for fatigue. Continue Procrit and po iron . Add po folic acid Status: Acute
--- NOTE | 2017-01-03 22:11 | CP.PCM.PN ---
Subjective - Date & Time of Evaluation Date of Evaluation: 01/03/17 Time of Evaluation: 13:20 - Subjective Subjective: Less shortness of breath today. Platlets 50,000 today. Patient evaluated by hematology. Iron and folic acid added to regamen. Patient now on zyvox. Objective - Vital Signs/Intake and Output Vital Signs (last 24 hours): Temp Pulse Resp BP Pulse Ox 98.2 F 73 20 147/79 97 01/03/17 15:56 01/03/17 15:56 01/03/17 15:56 01/03/17 15:56 01/03/17 15:56 Intake and Output: 01/03/17 01/04/17 18:59 06:59 Intake Total 100 Output Total 500 Balance -400 - Medications Medications: Current Medications Albuterol Sulfate (Albuterol 0.042% Inhal Tricia (1.25mg/3ml) Ud) 1.25 mg INH RQ6 [facility] Last Admin: 01/03/17 19:04 Dose: 1.25 mg Epoetin Arturo (Procrit) 10,000 unit SC MWF [facility] Last Admin: 01/03/17 09:19 Dose: 10,000 unit Ferrous Sulfate (Feosol) 325 mg PO DAILY [facility] Last Admin: 01/03/17 09:20 Dose: 325 mg Folic Acid (Folic Acid) 1 mg PO DAILY [facility] Last Admin: 01/03/17 19:10 Dose: 1 mg Furosemide (Lasix) 40 mg PO DAILY [facility] Last Admin: 01/03/17 09:20 Dose: 40 mg Aztreonam 1 gm/ Sodium (Chloride) 100 mls @ 100 mls/hr IVPB Q8H [facility] Last Admin: 01/03/17 14:01 Dose: 100 mls/hr Insulin Glargine (Lantus) 12 unit SC HS [facility] Last Admin: 01/02/17 22:22 Dose: 12 units Linezolid (Zyvox) 600 mg PO Q12 [facility] Last Admin: 01/03/17 09:20 Dose: 600 mg Loperamide HCl (Imodium) 2 mg PO Q4H PRN PRN Reason: Diarrhea Lorazepam (Ativan) 0.5 mg PO HS PRN PRN Reason: Anxiety Last Admin: 12/30/16 06:48 Dose: 0.5 mg Magnesium Hydroxide (Milk Of Magnesia) 30 ml PO Q4H PRN PRN Reason: Constipation Pantoprazole Sodium (Protonix Ec Tab) 40 mg PO DAILY [facility] Last Admin: 01/03/17 09:20 Dose: 40 mg Potassium Chloride (K-Dur 20 Meq Er Tab) 20 meq PO DAILY [facility] Last Admin: 01/03/17 09:20 Dose: 20 meq Tramadol HCl (Ultram) 50 mg PO Q4H PRN PRN Reason: Pain, moderate (4-7) Last Admin: 01/02/17 14:53 Dose: 50 mg - Labs Labs: 01/03/17 06:47 01/03/17 06:47 PT 13.0 SECONDS (9.7-12.2) H 12/29/16 19:29 INR 1.1 12/29/16 19:29 APTT 31 SECONDS (21-34) 12/29/16 19:29 - Constitutional Appears: Chronically Ill - Head Exam Head Exam: NORMOCEPHALIC - Eye Exam Eye Exam: Normal appearance Pupil Exam: NORMAL ACCOMODATION - ENT Exam ENT Exam: Normal Exam - Neck Exam Neck Exam: Normal Inspection - Respiratory Exam Respiratory Exam: Decreased Breath Sounds - Cardiovascular Exam Cardiovascular Exam: Tachycardia, REGULAR RHYTHM - GI/Abdominal Exam GI & Abdominal Exam: Hyperactive Bowel Sounds - Rectal Exam Rectal Exam: Deferred - Exam Exam: NORMAL INSPECTION External exam: NORMAL EXTERNAL EXAM - Extremities Exam Extremities Exam: Tenderness - Back Exam Back Exam: NORMAL INSPECTION - Neurological Exam Neurological Exam: Oriented x3 - Psychiatric Exam Psychiatric exam: Depressed - Skin Skin Exam: Dry Assessment and Plan (1) Emphysema (subcutaneous) resulting from procedure Status: Acute (2) Myeloproliferative disease Status: Acute (3) Thrombocytopenia Status: Acute (4) Anemia Status: Acute (5) Osteoarthritis Status: Acute (6) Peripheral edema Status: Acute (7) Thrombophlebitis Status: Acute (8) Osteomyelitis Status: Acute
[2017-01-03] MEDS: (Lantus) Insulin Glargine, Recombinant SC SCH (22:34)
[2017-01-04] MEDS: Albuterol 0.042% Inhal Sol (1.25 mg/3 mL) UD INH SCH ×3 (01:47→14:00)
[2017-01-04] MEDS: Aztreonam 1 GM in Sodium Chloride 0.9% 100 ML IVPB SCH ×2 (06:40→14:21)
[2017-01-04 08:03] LABS: BASO % 0.7 % (0.0-2.0); EOS % 0.2 % (0.0-4.0); HEMATOCRIT 29.8 % (34.0-47.0); LYMPH # 1.9 K/uL (1.0-4.3); LYMPH % 29.3 % (20.0-40.0); MEAN CELL VOLUME 97.1 fL (81.0-99.0); MEAN CORPUSCULAR HEMOGLOBIN 31.5 pg (27.0-31.0); MEAN CORPUSCULAR HGB CONC 32.5 g/dL (33.0-37.0); MONO # 1.2 K/uL (0.0-0.8); MONO % 18.2 % (0.0-10.0); NRBC % 0.8 % (0.0-2.0); RED CELL DISTRIBUTION WIDTH 21.8 % (11.5-14.5); WHITE BLOOD COUNT 6.7 K/uL (4.8-10.8)
[2017-01-04 08:31] LABS: CHLORIDE 102 mmol/L (98-107); SODIUM 133 mmol/L (132-148)
[2017-01-04 08:32] LABS: POTASSIUM 4.1 mmol/L (3.6-5.2)
[2017-01-04 08:34] LABS: GFR AFRICAN-AMERICAN > 60
[2017-01-04 08:35] LABS: BLOOD UREA NITROGEN 23 mg/dL (7-17); CALCIUM 8.5 mg/dl (8.6-10.4); CARBON DIOXIDE 26 mmol/L (22-30); GLUCOSE,RANDOM 133 mg/dL (65-105)
[2017-01-04] MEDS: Potassium Chloride 20 mEq ER Tab PO SCH (10:13)
[2017-01-04] MEDS: Pantoprazole 40 mg EC Tab PO SCH (10:14)
--- NOTE | 2017-01-04 10:30 | CP.PCM.PN ---
Subjective - Date & Time of Evaluation Date of Evaluation: 01/04/17 Time of Evaluation: 09:30 - Subjective Subjective: Podiatry Progress Note- Dr. Thompson: 76 year old female patient seen at bedside today for followup of chronic right heel ulceration. Pt seen resting in bed at time of visit. Denies any acute overnight events. Does complain of some fatigue today also complains of some mild tenderness to bottom of right foot. Denies f/n/v/c/sob/cp at this time. Seen without wearing offloading boots to feet. Objective - Vital Signs/Intake and Output Vital Signs (last 24 hours): Temp Pulse Resp BP Pulse Ox 97.5 F L 78 18 121/70 100 01/04/17 08:28 01/04/17 08:28 01/04/17 08:28 01/04/17 10:13 01/04/17 08:28 Intake and Output: 01/04/17 01/04/17 06:59 18:59 Intake Total 250 Output Total 200 Balance 50 - Medications Medications: Current Medications Albuterol Sulfate (Albuterol 0.042% Inhal Tricia (1.25mg/3ml) Ud) 1.25 mg INH RQ6 [facility] Last Admin: 01/04/17 08:18 Dose: 1.25 mg Epoetin Arturo (Procrit) 10,000 unit SC MWF [facility] Last Admin: 01/03/17 09:19 Dose: 10,000 unit Ferrous Sulfate (Feosol) 325 mg PO DAILY [facility] Last Admin: 01/04/17 10:13 Dose: 325 mg Folic Acid (Folic Acid) 1 mg PO DAILY [facility] Last Admin: 01/04/17 10:14 Dose: 1 mg Furosemide (Lasix) 40 mg PO DAILY [facility] Last Admin: 01/04/17 10:13 Dose: 40 mg Aztreonam 1 gm/ Sodium (Chloride) 100 mls @ 100 mls/hr IVPB Q8H [facility] Last Admin: 01/04/17 06:40 Dose: 100 mls/hr Insulin Glargine (Lantus) 12 unit SC HS [facility] Last Admin: 01/03/17 22:34 Dose: 12 units Linezolid (Zyvox) 600 mg PO Q12 [facility] Last Admin: 01/04/17 10:14 Dose: 600 mg Loperamide HCl (Imodium) 2 mg PO Q4H PRN PRN Reason: Diarrhea Lorazepam (Ativan) 0.5 mg PO HS PRN PRN Reason: Anxiety Last Admin: 12/30/16 06:48 Dose: 0.5 mg Magnesium Hydroxide (Milk Of Magnesia) 30 ml PO Q4H PRN PRN Reason: Constipation Pantoprazole Sodium (Protonix Ec Tab) 40 mg PO DAILY [facility] Last Admin: 01/04/17 10:14 Dose: 40 mg Potassium Chloride (K-Dur 20 Meq Er Tab) 20 meq PO DAILY [facility] Last Admin: 01/04/17 10:13 Dose: 20 meq Tramadol HCl (Ultram) 50 mg PO Q4H PRN PRN Reason: Pain, moderate (4-7) Last Admin: 01/02/17 14:53 Dose: 50 mg - Labs Labs: 01/04/17 07:49 01/04/17 07:49 PT 13.0 SECONDS (9.7-12.2) H 12/29/16 19:29 INR 1.1 12/29/16 19:29 APTT 31 SECONDS (21-34) 12/29/16 19:29 - Constitutional Appears: Non-toxic, No Acute Distress - Extremities Exam Extremities Exam: absent: Calf Tenderness Additional comments: Bilateral lower extremity exam: VASC- DP/PT pulses non-palpable BL, cap refill < 3 sec x 10, skin temp runs from warm to cool (proximal to distal) BL, 2+ pitting edema is note to lower legs BL (L>R) NEURO- protective sensation diminished BL, light touch sensation is intact BL DERM- there is a superficial ulceration (duvall grade I) noted to the right plantar heel measuring approx. 1.5x1.0x0.4 cm, maceration is much improved today , mixed fibrogranular base, negative probe to bone, negative undermining or sinus tracking, negative malodor, slight serosanguinous drainage noted to bandage, no drainage, no surrounding erythema, no open wounds or ulcerations noted to left lower extremity and no signs infection (there is however lichenification of the lower leg skin noted) ORTHO- slight tenderness noted to palpation of right foot ulceration - Psychiatric Exam Psychiatric exam: Normal Affect, Normal Mood Assessment and Plan - Assessment and Plan (Free Text) Assessment: 76 yo female patient with chronic ulceration of right foot 2/2 diabetic neuropathy Plan: Pt S&E at the bedside Plan discussed in detail with attending Dr. Thompson. Chart, labs and vitals reviewed: afebrile, no leukocytosis Bone scan 12/21/16: changes consistent with OM right calcaneus Wound cx right foot (12/15/16): + pseudomonas Dressing reapplied to right plantar foot (W2D betadine, DSD and OCHOA wrap to right leg) OCHOA wrap to left leg Advised pt of importance of wearing offloading boots while in bed to avoid pressure ulcerations. Stable per podiatry will follow.
[2017-01-04] MEDS: Ammonium Lactate 12% Lotion (225 g) EXT SCH ×2 (14:55→17:34)
--- NOTE | 2017-01-04 15:52 | CP.PCM.PN ---
Subjective - Date & Time of Evaluation Date of Evaluation: 01/04/17 Time of Evaluation: 11:20 - Subjective Subjective: Pt seen today , states feels better, denies any chest pain,sob, c/o weakness a febrile Objective - Vital Signs/Intake and Output Vital Signs (last 24 hours): Temp Pulse Resp BP Pulse Ox 97.5 F L 78 18 121/70 100 01/04/17 08:28 01/04/17 08:28 01/04/17 08:28 01/04/17 10:13 01/04/17 08:28 Intake and Output: 01/04/17 01/04/17 06:59 18:59 Intake Total 250 100 Output Total 200 300 Balance 50 -200 - Medications Medications: Current Medications Albuterol Sulfate (Albuterol 0.042% Inhal Tricia (1.25mg/3ml) Ud) 1.25 mg INH RQ6 [facility] Last Admin: 01/04/17 14:00 Dose: 1.25 mg Epoetin Arturo (Procrit) 10,000 unit SC MWF [facility] Last Admin: 01/03/17 09:19 Dose: 10,000 unit Ferrous Sulfate (Feosol) 325 mg PO DAILY [facility] Last Admin: 01/04/17 10:13 Dose: 325 mg Folic Acid (Folic Acid) 1 mg PO DAILY [facility] Last Admin: 01/04/17 10:14 Dose: 1 mg Furosemide (Lasix) 40 mg PO DAILY [facility] Last Admin: 01/04/17 10:13 Dose: 40 mg Aztreonam 1 gm/ Sodium (Chloride) 100 mls @ 100 mls/hr IVPB Q8H [facility] Last Admin: 01/04/17 14:21 Dose: 100 mls/hr Insulin Glargine (Lantus) 8 unit SC HS [facility] Lactic Acid (Lac-Hydrin 12% Lotion (225 G)) 0 gm EXT BID [facility] Last Admin: 01/04/17 14:55 Dose: 1 applic Linezolid (Zyvox) 600 mg PO Q12 [facility] Last Admin: 01/04/17 10:14 Dose: 600 mg Loperamide HCl (Imodium) 2 mg PO Q4H PRN PRN Reason: Diarrhea Lorazepam (Ativan) 0.5 mg PO HS PRN PRN Reason: Anxiety Last Admin: 12/30/16 06:48 Dose: 0.5 mg Magnesium Hydroxide (Milk Of Magnesia) 30 ml PO Q4H PRN PRN Reason: Constipation Nystatin (Nystop Topical Powder) 0 applic TOP BID [facility] Pantoprazole Sodium (Protonix Ec Tab) 40 mg PO DAILY [facility] Last Admin: 01/04/17 10:14 Dose: 40 mg Potassium Chloride (K-Dur 20 Meq Er Tab) 20 meq PO DAILY [facility] Last Admin: 01/04/17 10:13 Dose: 20 meq Tramadol HCl (Ultram) 50 mg PO Q4H PRN PRN Reason: Pain, moderate (4-7) Last Admin: 01/02/17 14:53 Dose: 50 mg - Labs Labs: 01/04/17 07:49 01/04/17 07:49 PT 13.0 SECONDS (9.7-12.2) H 12/29/16 19:29 INR 1.1 12/29/16 19:29 APTT 31 SECONDS (21-34) 12/29/16 19:29 - Constitutional Appears: Well, No Acute Distress - Respiratory Exam Respiratory Exam: Clear to Ausculation Bilateral, NORMAL BREATHING PATTERN - Cardiovascular Exam Cardiovascular Exam: REGULAR RHYTHM, +S1, +S2 - Extremities Exam Extremities Exam: Pedal Edema (chronic skin changes ) - Neurological Exam Neurological Exam: Alert, Awake, Oriented x3 Assessment and Plan - Assessment and Plan (Free Text) Assessment: A/P 76 YR OLD FEMALE ADMITTED FOR THROMOCYTOPENIA, ANEMIA S/P PLATELET TRANSFUSION AND BLOOD TRANSFUSION PLT- 31 TODAY BASE LINE AN D HGB STABLE VRE IN URINE - ON ZYVOX D/W DR. MORRIS CONTINUE 7 MORE DAYS OF ZYVOX AND CONTINUE AZACTUM D/W DR. GARZA WITH ALL LAB RESULT, CLEARED FOR DISCHARGE FROM [facility]ANDPOINT SEEN BY DR. VERONICA TODAY, CLEARED FOR DISCHARGE TO [facility] TODAY AND JEREMÍAS DANIELLE WILL FOLLOW THE PT AT [facility] SUNDAY AN DTHEN Q 3 DAYS DISCHARGE PLAN DISCUSSED WITH PATIENT BY DR. VERONICA AND ME
[2017-01-04 16:28] VITALS: BP 113/70; PULSE 80; RESP 20; TEMP 97.8; O2SAT 98
[2017-01-04] MEDS ORDERED: (Lantus) Insulin Glargine, Recombinant SC SCH ×2 (22:00)
--- NOTE | 2017-01-04 22:33 | CP.PCM.DIS ---
Provider - Provider Date of Admission: 12/29/16 19:45 Attending physician: Junito Foster MD Time Spent in preparation of Discharge (in minutes): 28 Diagnosis - Discharge Diagnosis (1) Emphysema (subcutaneous) resulting from procedure Status: Acute (2) Myeloproliferative disease Status: Acute (3) Thrombocytopenia Status: Acute (4) Anemia Status: Acute Priority: High (5) Osteoarthritis Status: Acute Priority: Medium (6) Peripheral edema Status: Acute (7) Thrombophlebitis Status: Acute Priority: Medium (8) Osteomyelitis Status: Acute Hospital Course - Lab Results Lab Results: Micro Results 01/03/17 14:10 Urine Urine Culture - Preliminary Gram Positive Cocci 12/29/16 23:44 Blood-Thru Central Line Blood Culture - Final NO GROWTH AFTER 5 DAYS 12/29/16 23:44 Blood-Thru Central Line Gram Stain - Final TEST NOT PERFORMED 12/29/16 Unknown Urine,Catheterized Urine Culture - Final Vancomycin Res E.faecalis Vancomycin Resistant E.faecium Most Recent Lab Values WBC 6.7 K/uL (4.8-10.8) 01/04/17 07:49 RBC 3.06 Mil/uL (3.80-5.20) L 01/04/17 07:49 Hgb 9.7 g/dL (11.0-16.0) L 01/04/17 07:49 Hct 29.8 % (34.0-47.0) L 01/04/17 07:49 MCV 97.1 fL (81.0-99.0) 01/04/17 07:49 MCH 31.5 pg (27.0-31.0) H 01/04/17 07:49 MCHC 32.5 g/dL (33.0-37.0) L 01/04/17 07:49 RDW 21.8 % (11.5-14.5) H 01/04/17 07:49 Plt Count 31 K/uL (130-400) L 01/04/17 07:49 MPV 9.0 fL (7.2-11.7) 01/04/17 07:49 Neut % (Auto) 51.6 % (50.0-75.0) 01/04/17 07:49 Lymph % (Auto) 29.3 % (20.0-40.0) 01/04/17 07:49 [place] % (Auto) 18.2 % (0.0-10.0) H 01/04/17 07:49 Eos % (Auto) 0.2 % (0.0-4.0) 01/04/17 07:49 Baso % (Auto) 0.7 % (0.0-2.0) 01/04/17 07:49 Neut # 3.4 K/uL (1.8-7.0) 01/04/17 07:49 Lymph # 1.9 K/uL (1.0-4.3) 01/04/17 07:49 [place] # 1.2 K/uL (0.0-0.8) H 01/04/17 07:49 Eos # 0.0 K/uL (0.0-0.7) 01/04/17 07:49 Baso # 0.0 K/uL (0.0-0.2) 01/04/17 07:49 Neutrophils % (Manual) 47 % (50-75) L 01/03/17 06:47 Band Neutrophils % 1 % (0-2) 12/29/16 19:29 Lymphocytes % (Manual) 32 % (20-40) 01/03/17 06:47 Reactive Lymphs % 1 % (0-0) H 01/03/17 06:47 Monocytes % (Manual) 20 % (0-10) H 01/03/17 06:47 Basophils % (Manual) 1 % (0-2) 01/01/17 07:08 Platelet Estimate Decreased (NORMAL) L 01/03/17 06:47 Polychromasia Slight 12/29/16 19:29 Hypochromasia (manual) Slight 01/03/17 06:47 Poikilocytosis (manual Slight 01/03/17 06:47 Anisocytosis (manual) Slight 01/03/17 06:47 Microcytosis (manual) Slight 01/03/17 06:47 Macrocytosis (manual) Slight 01/03/17 06:47 Target Cells Slight 01/03/17 06:47 Tear Drop Cells Slight 01/03/17 06:47 Ovalocytes Slight 01/01/17 07:08 Smear Path Review 12/29/16 19:29 PT 13.0 SECONDS (9.7-12.2) H 12/29/16 19:29 INR 1.1 12/29/16 19:29 APTT 31 SECONDS (21-34) 12/29/16 19:29 Puncture Site Rr 12/30/16 13:13 pCO2 45 mm/Hg (35-45) 12/30/16 13:13 pO2 193 mm/Hg (80-100) H 12/30/16 13:13 HCO3 30.1 mmol/L (21-28) H 12/30/16 13:13 ABG pH 7.45 (7.35-7.45) 12/30/16 13:13 ABG Total CO2 32.7 mmol/L (22-28) H 12/30/16 13:13 ABG O2 Saturation 100.5 % (95-98) H 12/30/16 13:13 ABG Base Excess 6.6 mmol/L (-2.0-3.0) H 12/30/16 13:13 ABG Hemoglobin 8.5 g/dL (11.7-17.4) L 12/30/16 13:13 ABG Carboxyhemoglobin 2.7 % (0.5-1.5) H 12/30/16 13:13 POC ABG HHb (Measured) -0.5 % (0.0-5.0) L 12/30/16 13:13 ABG Methemoglobin 2.4 % (0.0-3.0) 12/30/16 13:13 Inderjit Test Pos 12/30/16 13:13 A-a O2 Difference 36.0 mm/Hg 12/30/16 13:13 Respiratory Index 0.2 12/30/16 13:13 Hgb O2 Saturation 95.3 % (95.0-98.0) 12/30/16 13:13 Liter Flow 8.0 12/30/16 13:13 FiO2 40.0 % 12/30/16 13:13 Sodium 133 mmol/L (132-148) 01/04/17 07:49 Potassium 4.1 mmol/L (3.6-5.2) 01/04/17 07:49 Chloride 102 mmol/L (98-107) 01/04/17 07:49 Carbon Dioxide 26 mmol/L (22-30) 01/04/17 07:49 Anion Gap 10 (10-20) 01/04/17 07:49 BUN 23 mg/dL (7-17) H 01/04/17 07:49 Creatinine 0.7 MG/DL (0.7-1.2) 01/04/17 07:49 Est GFR ( Amer) > 60 01/04/17 07:49 Est GFR (Non-Af Amer) > 60 01/04/17 07:49 POC Glucose (mg/dL) 149 mg/dL (65-110) H 01/04/17 17:36 Random Glucose 133 mg/dL (65-105) H 01/04/17 07:49 Lactic Acid 1.2 mmol/L (0.7-2.1) 12/30/16 14:52 Calcium 8.5 mg/dl (8.6-10.4) L 01/04/17 07:49 Ferritin 992.0 ng/mL 01/04/17 07:49 Total Bilirubin 0.7 mg/dL (0.2-1.3) 01/03/17 06:47 AST 25 U/L (14-36) 01/03/17 06:47 ALT 43 U/L (9-52) 01/03/17 06:47 Alkaline Phosphatase 132 U/L (38-126) H D 01/03/17 06:47 Troponin I < 0.0120 ng/mL (0.00-0.120) 12/29/16 19:29 NT-Pro-B Natriuret Pep 844 pg/mL (0-900) 12/31/16 09:02 Total Protein 7.2 g/dL (6.3-8.3) 01/03/17 06:47 Albumin 2.4 g/dL (3.5-5.0) L 01/03/17 06:47 Globulin 4.8 gm/dL (2.2-3.9) H 01/03/17 06:47 Albumin/Globulin Ratio 0.5 (1.0-2.1) L 01/03/17 06:47 Vitamin B12 > 1000 pg/mL (239-931) H 01/04/17 07:49 Urine Color Yellow (YELLOW) 12/29/16 20:38 Urine Clarity Hazy (Clear) 12/29/16 20:38 Urine pH 6.0 (5.0-8.0) 12/29/16 20:38 Ur Specific [place] 1.014 (1.003-1.030) 12/29/16 20:38 Urine Protein 1+ mg/dL (NEGATIVE) H 12/29/16 20:38 Urine Glucose (UA) Normal mg/dL (Normal) 12/29/16 20:38 Urine Ketones Negative mg/dL (NEGATIVE) 12/29/16 20:38 Urine Blood 1+ (NEGATIVE) H 12/29/16 20:38 Urine Nitrate Negative (NEGATIVE) 12/29/16 20:38 Urine Bilirubin Negative (NEGATIVE) 12/29/16 20:38 Urine Urobilinogen Normal mg/dL (0.2-1.0) 12/29/16 20:38 Ur Leukocyte Esterase 3+ [place]/uL (Negative) H 12/29/16 20:38 Urine WBC (Auto) 57 /hpf (0-5) H 12/29/16 20:38 Urine RBC (Auto) 4 /hpf (0-3) H 12/29/16 20:38 Ur Squamous Epith Cells < 1 /hpf (0-5) 12/29/16 20:38 Urine Bacteria Many (<OCC) H 12/29/16 20:38 Hyaline Casts 11-20 /lpf (0-2) H 12/29/16 20:38 Blood Type O NEGATIVE 12/30/16 13:48 Antibody Screen Negative 12/30/16 13:48 Discharge Exam - Head Exam Head Exam: NORMOCEPHALIC - Eye Exam Eye Exam: Normal appearance Pupil Exam: NORMAL ACCOMODATION - ENT Exam ENT Exam: Normal Exam - Neck Exam Neck exam: Normal Inspection - Respiratory Exam Respiratory Exam: Decreased Breath Sounds - Cardiovascular Exam Cardiovascular Exam: REGULAR RHYTHM - GI/Abdominal Exam GI & Abdominal Exam: Hyperactive Bowel Sounds - Rectal Exam Rectal Exam: Deferred - Exam External exam: NORMAL EXTERNAL EXAM - Extremities Exam Extremities exam: tenderness - Back Exam Back exam: paraspinal tenderness - Neurological Exam Neurological exam: Oriented x3 - Psychiatric Exam Psychiatric exam: Depressed - Skin Skin Exam: Dry Discharge Plan - Follow Up Plan Condition: GOOD Disposition: REHAB FACILITY/REHAB UNIT Instructions: Osteomyelitis (DC), Emphysema (DC), Myelodysplastic Syndromes (DC ), Myelodysplastic Syndromes (GEN) Additional Instructions: Please call Dr. Foster upon patient arrival to the facility Continue Azactum x 30 days Continue zyvox x 7 days CBC , BMP , SUNDAY and q 3 days - call result to Dr. Araujo OXYGEN VIA NASAL CANULA ALL TIMES - KEEP O2 SAT >94 WOUND CARE DAILY PLEASE CHANGE MEDIPORT NEEDLE SUNDAY AN DQ 7 DAYS
--- NOTE | 2017-01-12 20:30 | CARD ---
APPROVED REPORT EKG Measurement Heart [id number] <Conclusion> Normal sinus rhythm Nonspecific ST and T wave abnormality Abnormal ECG
== END 2017-01-04 18:10 | DRG 808 ==
LOC: C.ER 18:11 → C.3T 19:45 → C.6T 12-30 15:01
PROVIDERS: ADMIT Internal Medicine; ATTEND Internal Medicine
PROC: 30233N1 Transfusion of Nonautologous Red Blood Cells into Peripheral Vein, Percutaneous Approach (ICD-10-PCS; principal; 2016-12-30)
PROC: 30233R1 Transfusion of Nonautologous Platelets into Peripheral Vein, Percutaneous Approach (ICD-10-PCS; 2016-12-30)
DX: D61.818 Other pancytopenia (principal); I50.33 Acute on chronic diastolic (congestive) heart failure; J18.9 Pneumonia, unspecified organism; E11.40 Type 2 diabetes mellitus with diabetic neuropathy, unspecified; E11.622 Type 2 diabetes mellitus with other skin ulcer; M86.10 Other acute osteomyelitis, unspecified site; L97.419 Non-pressure chronic ulcer of right heel and midfoot with unspecified severity; I11.0 Hypertensive heart disease with heart failure; L03.90 Cellulitis, unspecified; D46.9 Myelodysplastic syndrome, unspecified; I80.9 Phlebitis and thrombophlebitis of unspecified site; E11.69 Type 2 diabetes mellitus with other specified complication; F41.9 Anxiety disorder, unspecified; Z90.49 Acquired absence of other specified parts of digestive tract; R26.81 Unsteadiness on feet; Z79.4 Long term (current) use of insulin; T81.82XA Emphysema (subcutaneous) resulting from a procedure, initial encounter; Y83.9 Surgical procedure, unspecified as the cause of abnormal reaction of the patient, or of later complication, without mention of misadventure at the time of the procedure; M51.37 Other intervertebral disc degeneration, lumbosacral region; E66.9 Obesity, unspecified; Z68.32 Body mass index [BMI] 32.0-32.9, adult

== ENCOUNTER 2017-03-04 16:31 | Inpatient (IN) | payer MEDICARE, BC ==
[2017-03-04 16:46] VITALS: BMI 27.5
[2017-03-04] MEDS ORDERED: HYDROmorphone 0.5 mg/0.5 ml ISec IVP STA (17:07)
--- NOTE | 2017-03-04 17:08 | C.PDOC ---
History Of Present Illness 76-year-old female, presents to the emergency department with complaints of shoulder pain. Patient states she has been experiencing non-traumatic pain in her left upper back/shoulder, for the past few days. Patient denies any visual changes, nausea/vomiting, fevers, chills, dizziness, or any other associated symptoms. Chief Complaint (Nursing): Upper Extremity Problem/Injury History Per: Patient History/Exam Limitations: no limitations Onset/Duration Of Symptoms: Days Current Symptoms Are (Timing): Still Present Past Medical History Reviewed: Historical Data, Nursing Documentation, Vital Signs Vital Signs: Last Vital Signs Temp 97.9 F 03/04/17 16:32 Pulse 104 H 03/04/17 16:32 Resp 20 03/04/17 16:32 BP 100/62 03/04/17 16:32 Pulse Ox 99 03/04/17 18:23 - Medical History PMH: Anemia, Anxiety, Arthritis, CHF, Depression, Emphysema, Gastritis, HTN, Peripheral Edema, Pneumonia Denies: Chronic Kidney Disease Surgical History: Cholecystectomy (in 2010), Tonsillectomy (8yrs old) - [facility] Procedures CENTRAL VENOUS CATHETER PLACEMENT WITH GUIDANCE (02/16/14) FLUOROSCOPY OF SUPERIOR VENA CAVA, GUIDANCE (10/12/16) INSERTION OF INFUSION DEV INTO SUP VENA CAVA, PERC APPROACH (10/12/16) INSERTION OF VAD INTO CHEST SUBCU/FASCIA, OPEN APPROACH (10/12/16) PACKED CELL TRANSFUSION (02/16/14) TRANSFUSE NONAUT PLATELETS IN PERIPH VEIN, PERC (12/29/16) TRANSFUSE NONAUT RED BLOOD CELLS IN PERIPH VEIN, PERC (12/29/16) VACCINATION NEC (02/16/14) Family History: States: No Known Family Hx - Social History Hx Tobacco Use: No Hx Alcohol Use: No Hx Substance Use: No - Immunization History Hx Tetanus Toxoid Vaccination: No Hx Influenza Vaccination: Yes Hx Pneumococcal Vaccination: Yes Review Of Systems Except As Marked, All Systems Reviewed And Found Negative. Constitutional: Negative for: Fever, Chills Cardiovascular: Negative for: Chest Pain Respiratory: Negative for: Shortness of Breath Gastrointestinal: Negative for: Nausea, Vomiting Musculoskeletal: Positive for: Shoulder Pain, Back Pain Skin: Negative for: Rash Neurological: Negative for: Weakness, Numbness, Headache, Dizziness Physical Exam - Physical Exam Appears: Non-toxic, No Acute Distress Skin: Warm, Dry, Other (cauliflower skin, bilateral lower extremtiies) Head: Atraumatic, Normacephalic Eye(s): bilateral: Normal Inspection, PERRL Nose: Normal Oral Mucosa: Moist Neck: Normal ROM Cardiovascular: Rhythm Regular ( ), No Murmur, Other Respiratory: Normal Breath Sounds, No Accessory Muscle Use Back: Paraspinal Tenderness (thoracic, left) ED Course And Treatment - Laboratory Results Result Diagrams: 03/04/17 17:15 03/04/17 17:15 ECG: Interpreted By Me ECG Rhythm: Sinus Rhythm ECG Interpretation: No Acute Changes Interpretation Of ECG: nsr,no acute STTW changes,no ectopy.No acute evidence of ischemia Rate From EC O2 Sat by Pulse Oximetry: 99 - Radiology CXR: Interpreted by Me, Viewed By Me, Read By Radiologist CXR Interpretation: Yes: No Acute Disease, Other (There is a portacath noted to the right subclavian) Medical Decision Making Medical Decision Making: Dr. Foster called back. Will admit to his service for severe Disposition - Disposition Disposition: HOSPITALIZED Disposition Time: 18:40 Condition: FAIR - Clinical Impression Clinical Impression: Severe anemia, Myelodysplasia (myelodysplastic syndrome) Decision To Admit - Pt Status Changed To: Hospital Disposition Of: Observation - . Bed Request Type: Regular Admitting Physician: Junito Foster Patient Diagnosis: Severe anemia, Myelodysplasia (myelodysplastic syndrome)
[2017-03-04] MEDS ORDERED: HYDROmorphone 0.5 mg/0.5 ml ISec ONE (17:14)
[2017-03-04 17:25] LABS: BASO # 0.1 K/uL (0.0-0.2); EOS % 0.1 % (0.0-4.0); MEAN CORPUSCULAR HEMOGLOBIN 31.4 pg (27.0-31.0)
--- NOTE | 2017-03-04 17:25 | RAD ---
HISTORY: Sepsis Patient COMPARISON: Chest x-ray performed 12/30/16 TECHNIQUE: Chest, one view. FINDINGS: Right-sided MediPort extends the SVC. LUNGS: Patchy bilateral pulmonary infiltrates persist, slightly decreased in extent particularly within the left upper lobe. Central vascular congestion. Small left pleural effusion. No definite pneumothorax. CARDIOVASCULAR: Cardiomegaly. OSSEOUS STRUCTURES: Osseous demineralization. Degenerative changes. VISUALIZED UPPER ABDOMEN: Unremarkable. OTHER FINDINGS: None. IMPRESSION: Right-sided MediPort extends the SVC. Patchy bilateral pulmonary infiltrates persist, slightly decreased in extent particularly within the left upper lobe. Central vascular congestion. Small left pleural effusion. Cardiomegaly.
[2017-03-04 17:32] LABS: CHLORIDE 107 mmol/L (98-107); POTASSIUM 3.6 mmol/L (3.6-5.2); SODIUM 137 mmol/L (132-148)
[2017-03-04 17:33] LABS: BASO % 0.3 % (0.0-2.0); HEMATOCRIT 22.3 % (34.0-47.0); LYMPH # 1.8 K/uL (1.0-4.3); LYMPH % 10.3 % (20.0-40.0); MEAN CELL VOLUME 102.4 fL (81.0-99.0); MEAN CORPUSCULAR HGB CONC 30.7 g/dL (33.0-37.0); MEAN PLATELET VOLUME 10.1 fL (7.2-11.7); MONO # 2.9 K/uL (0.0-0.8); MONO % 16.2 % (0.0-10.0); NRBC % 1.9 % (0.0-2.0); RED CELL DISTRIBUTION WIDTH 24.8 % (11.5-14.5); WHITE BLOOD COUNT 17.9 K/uL (4.8-10.8)
[2017-03-04 17:34] LABS: ALB/GLOB RATIO 0.4 (1.0-2.1); AST/SGOT 11 U/L (14-36); BILIRUBIN,TOTAL 0.8 mg/dL (0.2-1.3); CARBON DIOXIDE 21 mmol/L (22-30); GFR AFRICAN-AMERICAN > 60; TOTAL PROTEIN 7.3 g/dL (6.3-8.3)
[2017-03-04 17:35] LABS: ALKALINE PHOSPHATASE 205 U/L (38-126); ALT/SGPT 18 U/L (9-52); BLOOD UREA NITROGEN 15 mg/dL (7-17); CALCIUM 7.4 mg/dl (8.6-10.4); GLUCOSE,RANDOM 98 mg/dL (65-105); PLATELET COUNT 23 K/uL (130-400)
[2017-03-04 18:03] LABS: NEUTROPHIL 77 % (50-75); TOTAL CELLS COUNTED 100
[2017-03-04 18:04] LABS: LARGE PLATELETS PRESENT
[2017-03-04] MEDS ORDERED: Influenza Vaccine 60 mcg/0.5 mL SYR (4YR UP) IM ONE (20:43)
[2017-03-04] MEDS: (Lantus) Insulin Glargine, Recombinant SC SCH (21:34)
[2017-03-05 06:45] LABS: IRON 57 ug/dL (37-170)
[2017-03-05] MEDS: Acetaminophen-Codeine 300/30 mg Tab PO PRN (08:25)
--- NOTE | 2017-03-05 09:38 | CP.PCM.HP ---
History of Present Illness - History of Present Illness History of Present Illness: 76 year old female comes to the [facility] ER complaining of fatigue, left shoulder and cervical spine pain was found to have a hemaglobin of 6.8 and platlets of 23,000. Patient was advised admission and immediately typed and cross matched for transfusion. Past History includes thrombocytopinia , anemia, CHF, thrombophlebitis, diaetes mellitus, hypertension and degenerative joint disease. Present on Admission - Present on Admission Any Indicators Present on Admission: No History of DVT/PE: No History of Uncontrolled Diabetes: No Urinary Catheter: No Decubitus Ulcer Present: No History Surgical Site Infection Following: None Review of Systems - Constitutional Constitutional: Weakness - EENT Eyes: Itchy Eyes Ears: Dizziness - Cardiovascular Cardiovascular: Dyspnea on Exertion - Respiratory Respiratory: Dyspnea on Exertion - Reproductive: Female Reproductive:Female: Post Menopausal - Menstruation Menstruation: Post Menopausal - Musculoskeletal Musculoskeletal: Arthralgias - Integumentary Integumentary: Dry Skin - Neurological Neurological: Dizziness, Weakness - Psychiatric Psychiatric: Depression - Endocrine Endocrine: Fatigue Past Patient History - Infectious Disease Hx of Infectious Diseases: None - Tetanus Immunizations Tetanus Immunization: Unknown, Up to Date - Past Medical History & Family History Past Medical History?: Yes - Past Social History Smoking Status: Never Smoked Chewing Tobacco Use: No Cigar Use: No Alcohol: None Drugs: Denies Home Situation {Lives}: With Family - CARDIAC Hx Congestive Heart Failure: Yes Hx Hypertension: Yes Hx Peripheral Edema: Yes - PULMONARY Hx Emphysema: Yes Hx Pneumonia: Yes - NEUROLOGICAL Hx Neurological Disorder: No Hx Vertigo: Yes - HEENT Hx HEENT Problems: No - RENAL Hx Chronic Kidney Disease: No - ENDOCRINE/METABOLIC Hx Diabetes Mellitus Type 2: Yes - HEMATOLOGICAL/ONCOLOGICAL Hx Anemia: Yes Hx Blood Transfusions: Yes - INTEGUMENTARY Hx Dermatological Problems: No Other/Comment: BLE w/ cauliflowered skin - MUSCULOSKELETAL/RHEUMATOLOGICAL Hx Arthritis: Yes Hx Back Pain: Yes Hx Degenerative Joint Disease: Yes Hx Falls: No - GASTROINTESTINAL Hx Gastritis: Yes - GENITOURINARY/GYNECOLOGICAL Hx Genitourinary Disorders: No Para: 2 - PSYCHIATRIC Hx Physical Abuse: No Hx Schizophrenia: No Hx Sexual Abuse: No Hx Substance Use: No - SURGICAL HISTORY Hx Cholecystectomy: Yes (in 2010) Hx Tonsillectomy: Yes (8yrs old) - ANESTHESIA Hx Anesthesia: Yes Hx Anesthesia Reactions: No Hx Malignant Hyperthermia: No Meds Allergies/Adverse Reactions: Allergies Allergy/AdvReac Type Severity Reaction Status Date / Time Gadolinium-Containing Allergy ITCHING Verified 12/13/16 15:45 Contrast Medi Physical Exam - Constitutional Appears: Chronically Ill - Head Exam Head Exam: NORMAL INSPECTION - Eye Exam Eye Exam: Normal appearance Pupil Exam: NORMAL ACCOMODATION - ENT Exam ENT Exam: Normal Oropharynx - Neck Exam Neck exam: Positive for: Normal Inspection - Respiratory Exam Respiratory Exam: Decreased Breath Sounds - Cardiovascular Exam Cardiovascular Exam: REGULAR RHYTHM - GI/Abdominal Exam GI & Abdominal Exam: Hyperactive Bowel Sounds - Rectal Exam Rectal Exam: Deferred - Exam External exam: NORMAL EXTERNAL EXAM - Extremities Exam Extremities exam: Positive for: joint swelling - Back Exam Back exam: muscle spasm - Neurological Exam Neurological exam: Oriented x3 - Psychiatric Exam Psychiatric exam: Depressed - Skin Skin Exam: Dry Results - Vital Signs Recent Vital Signs: Last Vital Signs Temp 97.7 F 03/05/17 04:45 Pulse 88 03/05/17 04:45 Resp 20 03/05/17 04:45 BP 108/68 03/05/17 04:45 Pulse Ox 96 03/04/17 18:58 - Labs Result Diagrams: 03/04/17 17:15 03/04/17 17:15 Labs: Laboratory Results - last 24 hr 03/04/17 03/04/17 03/04/17 17:15 17:15 17:39 WBC 17.9 H D RBC 2.18 L Hgb 6.8 L D Hct 22.3 L MCV 102.4 H D MCH 31.4 H MCHC 30.7 L RDW 24.8 H Plt Count 23 L* MPV 10.1 Neut % (Auto) 73.1 Lymph % (Auto) 10.3 L [place] % (Auto) 16.2 H Eos % (Auto) 0.1 Baso % (Auto) 0.3 Neut # 13.1 H Lymph # 1.8 [place] # 2.9 H Eos # 0.0 Baso # 0.1 Neutrophils % (Manual) 77 H Lymphocytes % (Manual) 10 L Monocytes % (Manual) 13 H Platelet Estimate Markedly decreased L Large Platelets Present Polychromasia Slight Hypochromasia (manual) Moderate Poikilocytosis (manual Slight Anisocytosis (manual) Slight Microcytosis (manual) Slight Macrocytosis (manual) Slight Ovalocytes Slight Sodium 137 Potassium 3.6 Chloride 107 Carbon Dioxide 21 L Anion Gap 13 BUN 15 Creatinine 0.7 Est GFR ( Amer) > 60 Est GFR (Non-Af Amer) > 60 POC Glucose (mg/dL) Random Glucose 98 Calcium 7.4 L Iron TIBC % Saturation Total Bilirubin 0.8 AST 11 L D ALT 18 Alkaline Phosphatase 205 H D Troponin I < 0.0120 Total Protein 7.3 Albumin 2.2 L Globulin 5.1 H Albumin/Globulin Ratio 0.4 L Blood Type O NEGATIVE Antibody Screen Negative 03/04/17 03/05/17 21:26 06:25 WBC RBC Hgb Hct MCV MCH MCHC RDW Plt Count MPV Neut % (Auto) Lymph % (Auto) [place] % (Auto) Eos % (Auto) Baso % (Auto) Neut # Lymph # [place] # Eos # Baso # Neutrophils % (Manual) Lymphocytes % (Manual) Monocytes % (Manual) Platelet Estimate Large Platelets Polychromasia Hypochromasia (manual) Poikilocytosis (manual Anisocytosis (manual) Microcytosis (manual) Macrocytosis (manual) Ovalocytes Sodium Potassium Chloride Carbon Dioxide Anion Gap BUN Creatinine Est GFR ( Amer) Est GFR (Non-Af Amer) POC Glucose (mg/dL) 106 Random Glucose Calcium Iron 57 TIBC 107 L % Saturation 53 Total Bilirubin AST ALT Alkaline Phosphatase Troponin I Total Protein Albumin Globulin Albumin/Globulin Ratio Blood Type Antibody Screen Assessment & Plan (1) Myelodysplasia (myelodysplastic syndrome) Status: Acute (2) Severe anemia Status: Acute (3) Degenerative disc disease at L5-S1 level Status: Acute Priority: Medium (4) Osteoarthritis Status: Acute Priority: Medium (5) Thrombocytopenia Status: Acute
[2017-03-05] MEDS: Multiple Vitamins Tab PO SCH (10:05)
[2017-03-05] MEDS: Neomycin-Polymyxin-Gramicidin Ophth Soln (10 ml) OP SCH (10:21)
[2017-03-05] MEDS: Calcium-Vit D 250 mg-125 Units Tab UD PO SCH (10:22)
[2017-03-05] MEDS: (Novolin R) Insulin Human Regular 100 units/ml vial SC SCH ×4 (11:45→22:09)
--- NOTE | 2017-03-05 12:11 | CARD ---
APPROVED REPORT EKG Measurement Heart [id number] <Conclusion> Normal sinus rhythm Cannot rule out Anterior infarct, age undetermined Abnormal ECG
[2017-03-05] MEDS ORDERED: Dextrose 50% SYRINGE Inj (50 ml) ONE (12:13)
[2017-03-05] MEDS ORDERED: Dextrose 50% SYRINGE Inj (50 ml) IV ONE ×2 (12:15→12:30)
[2017-03-05 13:06] LABS: MEAN CORPUSCULAR HEMOGLOBIN 30.3 pg (27.0-31.0); MEAN CORPUSCULAR HGB CONC 31.3 g/dL (33.0-37.0); MEAN PLATELET VOLUME 9.7 fL (7.2-11.7); NRBC % 0.6 % (0.0-2.0); RED CELL DISTRIBUTION WIDTH 23.3 % (11.5-14.5)
[2017-03-05 13:15] LABS: PLATELET COUNT 40 K/uL (130-400); WHITE BLOOD COUNT 56.7 K/uL (4.8-10.8)
[2017-03-05 13:41] LABS: NUCLEATED RED BLOOD CELL 4 % (0-0); TOTAL CELLS COUNTED 100
[2017-03-05 13:56] LABS: ABG ALLEN TEST POS; ARTERIAL BLOOD HGB O2 SAT 96.5 % (95.0-98.0); CARBOXYHEMOGLOBIN 2.5 % (0.5-1.5); DRAW SITE ARTERIAL; HHB -0.1 % (0.0-5.0); METHEMOGLOBIN 1.1 % (0.0-3.0)
--- NOTE | 2017-03-05 14:07 | RAD ---
PROCEDURE: Cervical Spine Radiographs. HISTORY: Stiffness, Pain. No history of recent/ related trauma provided COMPARISON: None. FINDINGS: BONES: Alignment maintained. No fracture. Dens Intact. DISC SPACES: Normal. SOFT TISSUES: Normal. No prevertebral soft tissue swelling. OTHER FINDINGS: None. IMPRESSION: Unremarkable cervical spine radiographs
[2017-03-05 14:20] LABS: ERYTHROCYTE SEDIMENTATION RATE 48 mm/hr (0-20)
[2017-03-05] MEDS: Piperacill/Tazo 3.375gm in Dex 3.375 GM/50 ML BAG IVPB SCH ×2 (14:30→20:00)
[2017-03-05] MEDS: Albuterol 0.042% Inhal Sol (1.25 mg/3 mL) UD INH SCH ×2 (14:30→20:28)
--- NOTE | 2017-03-05 16:24 | RAD ---
PROCEDURE: Radiographs of both shoulders HISTORY: pain and stiffness COMPARISON: None available. FINDINGS: BONES: Right shoulder: Osseous demineralization. No acute displaced fracture. Left shoulder: Osseous demineralization. No acute displaced fracture. JOINTS: Right shoulder: No dislocation. Left shoulder: No dislocation. SOFT TISSUES: Right shoulder: Unremarkable. No evidence of radiopaque foreign body. Glenohumeral joint space narrowing. Acromioclavicular arthropathy. Left shoulder: Unremarkable. No evidence of radiopaque foreign body. Glenohumeral joint space narrowing. Acromioclavicular arthropathy. OTHER FINDINGS: Right-sided MediPort extends expected location of the SVC. IMPRESSION: Degenerative changes. Osseous demineralization. Right-sided MediPort.
[2017-03-05 16:33] LABS: LYMPH # 1.6 K/uL (1.0-4.3)
[2017-03-05 16:35] LABS: MONO # 9.1 K/uL (0.0-0.8); NEUTROPHIL 67 % (50-75)
[2017-03-05 16:38] LABS: SMUDGE CELLS PRESENT
--- NOTE | 2017-03-05 17:21 | CP.PCM.CON ---
History of Present Illness - History of Present Illness History of Present Illness: 76 yo woman admitted for shoulder pain, found to have severe anemia with increasing WBC count, peripheral smear with no increase in blasts or early WBCs. Patient has a history of pancytopenia, with severe anemia, started on Procrit with a working diagnosis of MDS. ? patient with diarrhea Past Patient History - Infectious Disease Hx of Infectious Diseases: None - Tetanus Immunizations Tetanus Immunization: Unknown, Up to Date - Past Medical History & Family History Past Medical History?: Yes - Past Social History Smoking Status: Never Smoked Chewing Tobacco Use: No Cigar Use: No Alcohol: None Drugs: Denies Home Situation {Lives}: With Family - CARDIAC Hx Congestive Heart Failure: Yes Hx Hypertension: Yes Hx Peripheral Edema: Yes - PULMONARY Hx Emphysema: Yes Hx Pneumonia: Yes - NEUROLOGICAL Hx Neurological Disorder: No Hx Vertigo: Yes - HEENT Hx HEENT Problems: No - RENAL Hx Chronic Kidney Disease: No - ENDOCRINE/METABOLIC Hx Diabetes Mellitus Type 2: Yes - HEMATOLOGICAL/ONCOLOGICAL Hx Anemia: Yes Hx Blood Transfusions: Yes - INTEGUMENTARY Hx Dermatological Problems: No Other/Comment: BLE w/ cauliflowered skin - MUSCULOSKELETAL/RHEUMATOLOGICAL Hx Arthritis: Yes Hx Back Pain: Yes Hx Degenerative Joint Disease: Yes Hx Falls: No - GASTROINTESTINAL Hx Gastritis: Yes - GENITOURINARY/GYNECOLOGICAL Hx Genitourinary Disorders: No Para: 2 - PSYCHIATRIC Hx Physical Abuse: No Hx Schizophrenia: No Hx Sexual Abuse: No Hx Substance Use: No - SURGICAL HISTORY Hx Cholecystectomy: Yes (in 2010) Hx Tonsillectomy: Yes (8yrs old) - ANESTHESIA Hx Anesthesia: Yes Hx Anesthesia Reactions: No Hx Malignant Hyperthermia: No Meds Allergies/Adverse Reactions: Allergies Allergy/AdvReac Type Severity Reaction Status Date / Time Gadolinium-Containing Allergy ITCHING Verified 12/13/16 15:45 Contrast Medi - Medications Medications: Current Medications Acetaminophen/Codeine Phosphate (Tylenol/Codeine 300 Mg/30 Mg) 1 ea PO Q4 PRN PRN Reason: Pain, moderate (4-7) Last Admin: 03/05/17 08:25 Dose: 1 ea Albuterol Sulfate (Albuterol 0.042% Inhal Tricia (1.25mg/3ml) Ud) 1.25 mg INH RTID [facility] Calcium/Vitamin D (Oscal-D 250 Mg-125 Units Tab) 1 tab PO DAILY [facility] Last Admin: 03/05/17 10:22 Dose: 1 tab Ferrous Sulfate (Feosol) 325 mg PO DAILY [facility] Last Admin: 03/05/17 10:05 Dose: 325 mg Folic Acid (Folic Acid) 1 mg PO DAILY [facility] Last Admin: 03/05/17 10:05 Dose: 1 mg Furosemide (Lasix) 40 mg PO DAILY [facility] Last Admin: 03/05/17 10:05 Dose: 40 mg Piperacillin Sod/Tazobactam Sod (Zosyn 3.375 Gm Iv Premix) 3.375 gm in 50 mls @ 100 mls/hr IVPB Q6H [facility] Last Admin: 03/05/17 14:30 Dose: 100 mls/hr Insulin Glargine (Lantus) 8 unit SC HS [facility] Last Admin: 03/04/17 21:34 Dose: 8 units Insulin Human Regular (Novolin R) 0 unit SC ACHS [facility] PRN Reason: Protocol Last Admin: 03/05/17 12:00 Dose: Not Given Lactic Acid (Lac-Hydrin 12% Lotion (225 G)) 0 gm EXT BID [facility] Loperamide HCl (Imodium) 2 mg PO Q4H PRN PRN Reason: Diarrhea Lorazepam (Ativan) 0.5 mg PO HS PRN PRN Reason: Anxiety Last Admin: 03/05/17 03:03 Dose: 0.5 mg Multivitamins (Hexavitamin) 1 tab PO DAILY [facility] Last Admin: 03/05/17 10:05 Dose: 1 tab Neomycin/Polymyxin/Gramicidin (Gramicidin/Neomycin/Polymyxin B) 0 ml OP DAILY [facility] Stop: 03/10/17 23:59 Last Admin: 03/05/17 10:21 Dose: 1 applic Pneumococcal Polyvalent Vaccine (Pneumovax 23 Vaccine) 0.5 ml IM .ONCE ONE Stop: 03/06/17 10:01 Results - Vital Signs Recent Vital Signs: Last Vital Signs Temp 98.2 F 03/05/17 15:00 Pulse 84 03/05/17 15:00 Resp 20 03/05/17 15:00 BP 115/72 03/05/17 15:00 Pulse Ox 98 03/05/17 15:00 - Labs Result Diagrams: 03/05/17 12:48 03/04/17 17:15 Labs: Laboratory Results - last 24 hr 03/04/17 03/04/17 03/04/17 17:15 17:15 17:39 WBC 17.9 H D RBC 2.18 L Hgb 6.8 L D Hct 22.3 L MCV 102.4 H D MCH 31.4 H MCHC 30.7 L RDW 24.8 H Plt Count 23 L* MPV 10.1 Neut % (Auto) 73.1 Lymph % (Auto) 10.3 L Becker % (Auto) 16.2 H Eos % (Auto) 0.1 Baso % (Auto) 0.3 Neut # 13.1 H Lymph # 1.8 Becker # 2.9 H Eos # 0.0 Baso # 0.1 Neutrophils % (Manual) 77 H Band Neutrophils % Lymphocytes % (Manual) 10 L Monocytes % (Manual) 13 H Nucleated RBC % Smudge Cells Platelet Estimate Markedly decreased L Large Platelets Present Polychromasia Slight Hypochromasia (manual) Moderate Poikilocytosis (manual Slight Anisocytosis (manual) Slight Microcytosis (manual) Slight Macrocytosis (manual) Slight Target Cells Ovalocytes Slight Smear Path Review ESR Puncture Site pCO2 pO2 HCO3 ABG pH ABG Total CO2 ABG O2 Saturation ABG Base Excess ABG Hemoglobin ABG Carboxyhemoglobin POC ABG HHb (Measured) ABG Methemoglobin Inderjit Test Hgb O2 Saturation Liter Flow Sodium 137 Potassium 3.6 Chloride 107 Carbon Dioxide 21 L Anion Gap 13 BUN 15 Creatinine 0.7 Est GFR ( Amer) > 60 Est GFR (Non-Af Amer) > 60 POC Glucose (mg/dL) Random Glucose 98 Calcium 7.4 L Iron TIBC % Saturation Ferritin Total Bilirubin 0.8 AST 11 L D ALT 18 Alkaline Phosphatase 205 H D Troponin I < 0.0120 NT-Pro-B Natriuret Pep Total Protein 7.3 Albumin 2.2 L Globulin 5.1 H Albumin/Globulin Ratio 0.4 L Blood Type O NEGATIVE Antibody Screen Negative 03/04/17 03/05/17 03/05/17 21:26 06:25 06:25 WBC RBC Hgb Hct MCV MCH MCHC RDW Plt Count MPV Neut % (Auto) Lymph % (Auto) Becker % (Auto) Eos % (Auto) Baso % (Auto) Neut # Lymph # Becker # Eos # Baso # Neutrophils % (Manual) Band Neutrophils % Lymphocytes % (Manual) Monocytes % (Manual) Nucleated RBC % Smudge Cells Platelet Estimate Large Platelets Polychromasia Hypochromasia (manual) Poikilocytosis (manual Anisocytosis (manual) Microcytosis (manual) Macrocytosis (manual) Target Cells Ovalocytes Smear Path Review ESR Puncture Site pCO2 pO2 HCO3 ABG pH ABG Total CO2 ABG O2 Saturation ABG Base Excess ABG Hemoglobin ABG Carboxyhemoglobin POC ABG HHb (Measured) ABG Methemoglobin Inderjit Test Hgb O2 Saturation Liter Flow Sodium Potassium Chloride Carbon Dioxide Anion Gap BUN Creatinine Est GFR ( Amer) Est GFR (Non-Af Amer) POC Glucose (mg/dL) 106 Random Glucose Calcium Iron 57 TIBC 107 L % Saturation 53 Ferritin 1200.0 Total Bilirubin AST ALT Alkaline Phosphatase Troponin I NT-Pro-B Natriuret Pep Total Protein Albumin Globulin Albumin/Globulin Ratio Blood Type Antibody Screen 03/05/17 03/05/17 03/05/17 12:06 12:48 12:48 WBC 56.7 H* D RBC 2.99 L Hgb 9.1 L D Hct 29.0 L MCV 97.0 D MCH 30.3 MCHC 31.3 L RDW 23.3 H Plt Count 40 L MPV 9.7 Neut % (Auto) 81.0 H Lymph % (Auto) 3.0 L Becker % (Auto) 16.0 H Eos % (Auto) 0.0 Baso % (Auto) 0.0 Neut # 46.0 H Lymph # 1.6 Becker # 9.1 H Eos # 0.0 Baso # 0.0 Neutrophils % (Manual) 67 Band Neutrophils % 14 H* Lymphocytes % (Manual) 3 L Monocytes % (Manual) 16 H Nucleated RBC % 4 H Smudge Cells Present Platelet Estimate Decreased L Large Platelets Polychromasia Slight Hypochromasia (manual) Slight Poikilocytosis (manual Anisocytosis (manual) Moderate Microcytosis (manual) Macrocytosis (manual) Slight Target Cells Slight Ovalocytes Smear Path Review ESR 48 H Puncture Site pCO2 pO2 HCO3 ABG pH ABG Total CO2 ABG O2 Saturation ABG Base Excess ABG Hemoglobin ABG Carboxyhemoglobin POC ABG HHb (Measured) ABG Methemoglobin Inderjit Test Hgb O2 Saturation Liter Flow Sodium Potassium Chloride Carbon Dioxide Anion Gap BUN Creatinine Est GFR ( Amer) Est GFR (Non-Af Amer) POC Glucose (mg/dL) 54 L Random Glucose Calcium Iron TIBC % Saturation Ferritin Total Bilirubin AST ALT Alkaline Phosphatase Troponin I NT-Pro-B Natriuret Pep 5810 H Total Protein Albumin Globulin Albumin/Globulin Ratio Blood Type Antibody Screen 03/05/17 03/05/17 03/05/17 13:44 13:50 16:21 WBC RBC Hgb Hct MCV MCH MCHC RDW Plt Count MPV Neut % (Auto) Lymph % (Auto) Becker % (Auto) Eos % (Auto) Baso % (Auto) Neut # Lymph # Becker # Eos # Baso # Neutrophils % (Manual) Band Neutrophils % Lymphocytes % (Manual) Monocytes % (Manual) Nucleated RBC % Smudge Cells Platelet Estimate Large Platelets Polychromasia Hypochromasia (manual) Poikilocytosis (manual Anisocytosis (manual) Microcytosis (manual) Macrocytosis (manual) Target Cells Ovalocytes Smear Path Review ESR Puncture Site Arterial pCO2 36 pO2 176 H HCO3 27.4 ABG pH 7.48 H ABG Total CO2 27.9 ABG O2 Saturation 100.1 H ABG Base Excess 3.2 H ABG Hemoglobin 8.4 L ABG Carboxyhemoglobin 2.5 H POC ABG HHb (Measured) -0.1 L ABG Methemoglobin 1.1 Inderjit Test Pos Hgb O2 Saturation 96.5 Liter Flow 3.0 Sodium Potassium Chloride Carbon Dioxide Anion Gap BUN Creatinine Est GFR ( Amer) Est GFR (Non-Af Amer) POC Glucose (mg/dL) 152 H 146 H Random Glucose Calcium Iron TIBC % Saturation Ferritin Total Bilirubin AST ALT Alkaline Phosphatase Troponin I NT-Pro-B Natriuret Pep Total Protein Albumin Globulin Albumin/Globulin Ratio Blood Type Antibody Screen
[2017-03-05] MEDS: Ammonium Lactate 12% Lotion (225 g) EXT SCH (18:00)
--- NOTE | 2017-03-05 20:12 | CP.PCM.PN ---
Subjective - Date & Time of Evaluation Date of Evaluation: 03/05/17 Time of Evaluation: 17:10 - Subjective Subjective: Patient feels better. She has less shoilder pain. WBCs 56,000, Hct 29. Patient evaluated by hematology hearing consultant. Chest xray reveals scattered densities. Dr Silva to evaluate. Objective - Vital Signs/Intake and Output Vital Signs (last 24 hours): Temp Pulse Resp BP Pulse Ox 98.2 F 84 20 115/72 98 03/05/17 15:00 03/05/17 15:00 03/05/17 15:00 03/05/17 15:00 03/05/17 15:00 Intake and Output: 03/05/17 03/06/17 18:59 06:59 Intake Total 900 Balance 900 - Medications Medications: Current Medications Acetaminophen/Codeine Phosphate (Tylenol/Codeine 300 Mg/30 Mg) 1 ea PO Q4 PRN PRN Reason: Pain, moderate (4-7) Last Admin: 03/05/17 08:25 Dose: 1 ea Albuterol Sulfate (Albuterol 0.042% Inhal Tricia (1.25mg/3ml) Ud) 1.25 mg INH RTID [facility] Calcium/Vitamin D (Oscal-D 250 Mg-125 Units Tab) 1 tab PO DAILY [facility] Last Admin: 03/05/17 10:22 Dose: 1 tab Ferrous Sulfate (Feosol) 325 mg PO DAILY [facility] Last Admin: 03/05/17 10:05 Dose: 325 mg Folic Acid (Folic Acid) 1 mg PO DAILY [facility] Last Admin: 03/05/17 10:05 Dose: 1 mg Furosemide (Lasix) 40 mg PO DAILY [facility] Last Admin: 03/05/17 10:05 Dose: 40 mg Piperacillin Sod/Tazobactam Sod (Zosyn 3.375 Gm Iv Premix) 3.375 gm in 50 mls @ 100 mls/hr IVPB Q6H [facility] Last Admin: 03/05/17 14:30 Dose: 100 mls/hr Insulin Glargine (Lantus) 8 unit SC HS [facility] Last Admin: 03/04/17 21:34 Dose: 8 units Insulin Human Regular (Novolin R) 0 unit SC ACHS [facility] PRN Reason: Protocol Last Admin: 03/05/17 12:00 Dose: Not Given Lactic Acid (Lac-Hydrin 12% Lotion (225 G)) 0 gm EXT BID [facility] Loperamide HCl (Imodium) 2 mg PO Q4H PRN PRN Reason: Diarrhea Lorazepam (Ativan) 0.5 mg PO HS PRN PRN Reason: Anxiety Last Admin: 03/05/17 03:03 Dose: 0.5 mg Multivitamins (Hexavitamin) 1 tab PO DAILY [facility] Last Admin: 03/05/17 10:05 Dose: 1 tab Neomycin/Polymyxin/Gramicidin (Gramicidin/Neomycin/Polymyxin B) 0 ml OP DAILY [facility] Stop: 03/10/17 23:59 Last Admin: 03/05/17 10:21 Dose: 1 applic Pneumococcal Polyvalent Vaccine (Pneumovax 23 Vaccine) 0.5 ml IM .ONCE ONE Stop: 03/06/17 10:01 - Labs Labs: 03/05/17 12:48 03/04/17 17:15 - Constitutional Appears: Chronically Ill - Head Exam Head Exam: NORMAL INSPECTION - Eye Exam Eye Exam: Normal appearance Pupil Exam: NORMAL ACCOMODATION - ENT Exam ENT Exam: Normal Exam - Neck Exam Neck Exam: Normal Inspection - Respiratory Exam Respiratory Exam: Decreased Breath Sounds - Cardiovascular Exam Cardiovascular Exam: REGULAR RHYTHM - GI/Abdominal Exam GI & Abdominal Exam: Hyperactive Bowel Sounds - Rectal Exam Rectal Exam: Deferred - Exam External exam: NORMAL EXTERNAL EXAM - Extremities Exam Extremities Exam: Tenderness - Back Exam Back Exam: NORMAL INSPECTION - Neurological Exam Neurological Exam: Oriented x3 - Psychiatric Exam Psychiatric exam: Depressed - Skin Skin Exam: Dry Assessment and Plan (1) Myelodysplasia (myelodysplastic syndrome) Status: Acute (2) Severe anemia Status: Acute (3) Degenerative disc disease at L5-S1 level Status: Acute (4) Osteoarthritis Status: Acute (5) Thrombocytopenia Status: Acute
[2017-03-05] MEDS: (Lantus) Insulin Glargine, Recombinant SC SCH (22:09)
[2017-03-06] MEDS: Piperacill/Tazo 3.375gm in Dex 3.375 GM/50 ML BAG IVPB SCH ×4 (01:17→20:00)
[2017-03-06] MEDS: Acetaminophen-Codeine 300/30 mg Tab PO PRN ×2 (03:37→08:25)
[2017-03-06 07:47] LABS: BASO # 0.2 K/uL (0.0-0.2); BASO % 0.5 % (0.0-2.0); EOS # 0.8 K/uL (0.0-0.7); EOS % 2.1 % (0.0-4.0); HEMATOCRIT 30.1 % (34.0-47.0); LYMPH # 2.6 K/uL (1.0-4.3); LYMPH % 6.7 % (20.0-40.0); MEAN CELL VOLUME 96.7 fL (81.0-99.0); MONO # 3.9 K/uL (0.0-0.8); MONO % 9.9 % (0.0-10.0); NRBC % 0.5 % (0.0-2.0); RED CELL DISTRIBUTION WIDTH 23.4 % (11.5-14.5)
[2017-03-06 07:51] LABS: PLATELET COUNT 8 K/uL (130-400); WHITE BLOOD COUNT 39.3 K/uL (4.8-10.8)
--- NOTE | 2017-03-06 07:53 | CON ---
DATE: 03/05/17 Thank you asking me to see this patient who is a 76-year-old lady and nonsmoker with a past history of arthritis, anemia, hypertensive cardiovascular disease, dyspepsia, diabetes mellitus and bronchitis. She is now admitted with shoulder pain. I have reviewed her chart and examined her and I also examined her lab data and imaging studies. I have written all the details on the consult sheet. Please see consult sheet for details. Now vitals have been written along with recommendations. Abundio Silva MD MTDDagmar
[2017-03-06] MEDS: Albuterol 0.042% Inhal Sol (1.25 mg/3 mL) UD INH SCH ×3 (08:19→19:54)
[2017-03-06] MEDS: (Novolin R) Insulin Human Regular 100 units/ml vial SC SCH ×4 (08:23→22:26)
--- NOTE | 2017-03-06 09:13 | RAD ---
Chest x-ray single frontal view History: Congestive heart failure. Comparison: 03/04/2017 Findings: Dense prominent consolidative opacification within the right upper to mid lung zone as well as the left mid to lower lung zone with associated small left pleural effusion. Prominent bilateral hilar prominence. Moderate venous congestion. Cardiomegaly. Enlarged ectatic aorta. Degenerative changes in the spine and shoulders. IVC filter in place. Impression: Dense prominent consolidative opacification within the right upper to mid lung zone as well as the left mid to lower lung zone with associated small left pleural effusion. Prominent bilateral hilar prominence. Moderate venous congestion. Cardiomegaly. Enlarged ectatic aorta. Degenerative changes in the spine and shoulders. IVC filter in place.
[2017-03-06 09:46] LABS: NEUTROPHIL 78 % (50-75); TOTAL CELLS COUNTED 100
[2017-03-06 09:51] LABS: SMUDGE CELLS PRESENT
[2017-03-06] MEDS ORDERED: Pneumococcal 23-Valent Vaccine IM ONE (10:00)
[2017-03-06] MEDS ORDERED: Influenza Vaccine 60 mcg/0.5 mL SYR (4YR UP) IM ONE (10:00)
[2017-03-06] MEDS: Calcium-Vit D 250 mg-125 Units Tab UD PO SCH (10:48)
[2017-03-06] MEDS: Multiple Vitamins Tab PO SCH (10:48)
[2017-03-06] MEDS: Neomycin-Polymyxin-Gramicidin Ophth Soln (10 ml) OP SCH (10:49)
[2017-03-06] MEDS: Ammonium Lactate 12% Lotion (225 g) EXT SCH ×2 (10:49→17:42)
[2017-03-06 11:19] LABS: POTASSIUM 5.5 mmol/L (3.6-5.2)
--- NOTE | 2017-03-06 17:33 | PN ---
DATE: PHYSICAL EXAMINATION: GENERAL: The patient is alert, oriented. The patient is not in acute distress. Her pains are a little easier. VITAL SIGNS: She is afebrile with blood pressure 106/64, pulse 79, hemoglobin oxygen saturation of 97%. HEART: Regular. No gallop rhythm. LUNGS: Diminished breath sounds over lung bases. Rhonchi decreased. ABDOMEN: Soft. EXTREMITIES: Legs, thick scaly skin over both legs with pigmentation and edema. LABORATORY DATA: White count is reported to be 39,300, hemoglobin 9.3, platelet count 8000. Polymorphonuclear leukocytes are 80%, which is high. Serum sodium is 137, potassium 5.5, chloride 107, glucose 119. LDH is markedly increased to 1324. The patient is being seen by fashion intern and oncologist. She is having transfusion and antibiotic therapy. IMPRESSION: Respiratory insufficiency, hypertensive cardiovascular disease with pulmonary congestive changes, severe anemia, myeloblastic disorders, diabetes mellitus and sepsis. PLAN: To continue with the current medications and current measures. Abundio Silva MD
[2017-03-06 20:10] LABS: CHLORIDE 108 mmol/L (98-107); POTASSIUM 3.8 mmol/L (3.6-5.2); SODIUM 139 mmol/L (132-148)
[2017-03-06 20:12] LABS: ALB/GLOB RATIO 0.6 (1.0-2.1); ALKALINE PHOSPHATASE 316 U/L (38-126); AST/SGOT 26 U/L (14-36); BILIRUBIN,TOTAL 1.6 mg/dL (0.2-1.3); CARBON DIOXIDE 18 mmol/L (22-30); GFR AFRICAN-AMERICAN > 60; TOTAL PROTEIN 6.3 g/dL (6.3-8.3)
[2017-03-06 20:13] LABS: ALT/SGPT 20 U/L (9-52); BLOOD UREA NITROGEN 19 mg/dL (7-17); CALCIUM 7.3 mg/dl (8.6-10.4); GLUCOSE,RANDOM 104 mg/dL (65-105)
[2017-03-06] MEDS ORDERED: GENTAMICIN IVPB STA (21:29)
[2017-03-06] MEDS ORDERED: [UNRECOGNIZED DRUG - OTHER] IVPB STA (21:29)
[2017-03-06] MEDS ORDERED: PREMIXED IVPB STA (21:29)
[2017-03-06] MEDS: (Lantus) Insulin Glargine, Recombinant SC SCH (22:26)
--- NOTE | 2017-03-06 22:58 | CP.PCM.PN ---
Subjective - Date & Time of Evaluation Date of Evaluation: 03/06/17 Time of Evaluation: 13:25 - Subjective Subjective: Patient complains of joint pain. WBCs 30,000. Hct 30 and calcium 7.2. She has positive blood cultures. Cosultation requested with Dr Prabhakar. Objective - Vital Signs/Intake and Output Vital Signs (last 24 hours): Temp Pulse Resp BP Pulse Ox 96.8 F L 84 20 108/34 L 94 L 03/06/17 17:00 03/06/17 17:00 03/06/17 17:00 03/06/17 17:00 03/06/17 15:08 Intake and Output: 03/06/17 03/07/17 18:59 06:59 Intake Total 638 628 Balance 638 628 - Medications Medications: Current Medications Acetaminophen/Codeine Phosphate (Tylenol/Codeine 300 Mg/30 Mg) 1 ea PO Q4 PRN PRN Reason: Pain, moderate (4-7) Last Admin: 03/06/17 08:25 Dose: 1 ea Albuterol Sulfate (Albuterol 0.042% Inhal Tricia (1.25mg/3ml) Ud) 1.25 mg INH RTID [facility] Last Admin: 03/06/17 19:54 Dose: 1.25 mg Calcium/Vitamin D (Oscal-D 250 Mg-125 Units Tab) 1 tab PO DAILY [facility] Last Admin: 03/06/17 10:48 Dose: 1 tab Ferrous Sulfate (Feosol) 325 mg PO DAILY [facility] Last Admin: 03/06/17 10:48 Dose: 325 mg Folic Acid (Folic Acid) 1 mg PO DAILY [facility] Last Admin: 03/06/17 10:49 Dose: 1 mg Furosemide (Lasix) 40 mg PO DAILY [facility] Last Admin: 03/06/17 10:48 Dose: 40 mg Piperacillin Sod/Tazobactam Sod (Zosyn 3.375 Gm Iv Premix) 3.375 gm in 50 mls @ 100 mls/hr IVPB Q6H [facility] Last Admin: 03/06/17 20:00 Dose: 100 mls/hr Insulin Glargine (Lantus) 8 unit SC HS [facility] Last Admin: 03/06/17 22:26 Dose: 8 units Insulin Human Regular (Novolin R) 0 unit SC ACHS [facility] PRN Reason: Protocol Last Admin: 03/06/17 22:26 Dose: Not Given Lactic Acid (Lac-Hydrin 12% Lotion (225 G)) 0 gm EXT BID [facility] Last Admin: 03/06/17 17:42 Dose: 1 applic Loperamide HCl (Imodium) 2 mg PO Q4H PRN PRN Reason: Diarrhea Lorazepam (Ativan) 0.5 mg PO HS PRN PRN Reason: Anxiety Last Admin: 03/05/17 03:03 Dose: 0.5 mg Multivitamins (Hexavitamin) 1 tab PO DAILY [facility] Last Admin: 03/06/17 10:48 Dose: 1 tab Neomycin/Polymyxin/Gramicidin (Gramicidin/Neomycin/Polymyxin B) 0 ml OP DAILY [facility] Stop: 03/10/17 23:59 Last Admin: 03/06/17 10:49 Dose: 1 applic - Labs Labs: 03/06/17 07:18 03/06/17 19:50 - Constitutional Appears: Chronically Ill - Head Exam Head Exam: NORMOCEPHALIC - Eye Exam Eye Exam: Normal appearance - ENT Exam ENT Exam: Normal Exam - Neck Exam Neck Exam: Normal Inspection - Respiratory Exam Respiratory Exam: Decreased Breath Sounds - Cardiovascular Exam Cardiovascular Exam: REGULAR RHYTHM - GI/Abdominal Exam GI & Abdominal Exam: Hyperactive Bowel Sounds - Rectal Exam Rectal Exam: Deferred - Exam External exam: NORMAL EXTERNAL EXAM - Extremities Exam Extremities Exam: Tenderness - Back Exam Back Exam: NORMAL INSPECTION - Neurological Exam Neurological Exam: Alert - Psychiatric Exam Psychiatric exam: Depressed - Skin Skin Exam: Dry Assessment and Plan (1) Myelodysplasia (myelodysplastic syndrome) Status: Acute (2) Severe anemia Status: Acute (3) Degenerative disc disease at L5-S1 level Status: Acute (4) Osteoarthritis Status: Acute (5) Thrombocytopenia Status: Acute
[2017-03-07] MEDS: Piperacill/Tazo 3.375gm in Dex 3.375 GM/50 ML BAG IVPB SCH ×3 (02:00→13:24)
[2017-03-07 06:58] LABS: HEMATOCRIT 28.9 % (34.0-47.0)
[2017-03-07 07:10] LABS: MEAN CORPUSCULAR HEMOGLOBIN 30.3 pg (27.0-31.0); MEAN CORPUSCULAR HGB CONC 31.5 g/dL (33.0-37.0); MEAN PLATELET VOLUME 8.4 fL (7.2-11.7); RED CELL DISTRIBUTION WIDTH 23.1 % (11.5-14.5)
[2017-03-07 07:16] LABS: WHITE BLOOD COUNT 39.3 K/uL (4.8-10.8)
[2017-03-07 07:26] LABS: CHLORIDE 106 mmol/L (98-107); POTASSIUM 3.5 mmol/L (3.6-5.2); SODIUM 137 mmol/L (132-148)
[2017-03-07 07:29] LABS: BLOOD UREA NITROGEN 19 mg/dL (7-17); CALCIUM 7.1 mg/dl (8.6-10.4); CARBON DIOXIDE 21 mmol/L (22-30); GFR AFRICAN-AMERICAN > 60; GLUCOSE,RANDOM 79 mg/dL (65-105)
[2017-03-07] MEDS: Albuterol 0.042% Inhal Sol (1.25 mg/3 mL) UD INH SCH ×3 (07:29→20:09)
[2017-03-07] MEDS: (Novolin R) Insulin Human Regular 100 units/ml vial SC SCH ×4 (08:00→22:04)
[2017-03-07] MEDS: Multiple Vitamins Tab PO SCH (09:42)
[2017-03-07] MEDS: Neomycin-Polymyxin-Gramicidin Ophth Soln (10 ml) OP SCH ×2 (09:43→09:44)
[2017-03-07] MEDS: Calcium-Vit D 250 mg-125 Units Tab UD PO SCH (09:43)
[2017-03-07] MEDS: Ammonium Lactate 12% Lotion (225 g) EXT SCH ×2 (09:44→18:00)
--- NOTE | 2017-03-07 15:53 | CP.PCM.CON ---
History of Present Illness - History of Present Illness History of Present Illness: 76-year-old female, presents to the emergency department with complaints of shoulder pain. Patient states she has been experiencing non-traumatic pain in her left upper back/shoulder, for the past few days. Patient denies any visual changes, nausea/vomiting, fevers, chills, dizziness, or any other associated symptoms. Found to have WBC 39 K septic work up done IV antibiotics ordered seen by Heme for MDS - Medical History PMH: Anemia, Anxiety, Arthritis, CHF, Depression, Emphysema, Gastritis, HTN, Peripheral Edema, Pneumonia Denies: Chronic Kidney Disease Surgical History: Cholecystectomy (in 2010), Tonsillectomy (8yrs old) - [facility] Procedures CENTRAL VENOUS CATHETER PLACEMENT WITH GUIDANCE (02/16/14) FLUOROSCOPY OF SUPERIOR VENA CAVA, GUIDANCE (10/12/16) INSERTION OF INFUSION DEV INTO SUP VENA CAVA, PERC APPROACH (10/12/16) INSERTION OF VAD INTO CHEST SUBCU/FASCIA, OPEN APPROACH (10/12/16) PACKED CELL TRANSFUSION (02/16/14) TRANSFUSE NONAUT PLATELETS IN PERIPH VEIN, PERC (12/29/16) TRANSFUSE NONAUT RED BLOOD CELLS IN PERIPH VEIN, PERC (12/29/16) VACCINATION NEC (02/16/14) Family History: States: No Known Family Hx Review of Systems - Review of Systems Systems not reviewed;Unavailable: Altered Mental Status - Constitutional Constitutional: As Per HPI - EENT Eyes: absent: As Per HPI, Blind Spots, Blurred Vision, Change in Vision, Decreased Night Vision, Diplopia, Discharge, Dry Eye, Exophthalmos, Floaters, Irritation, Itchy Eyes, Loss of Peripheral Vision, Pain, Photophobia, Requires Corrective Lenses, Sees Flashes, Spots in Vision, Tunnel Vision, Other Visual Disturbances, Loss of Vision, Other Ears: absent: As Per HPI, Decreased Hearing, Ear Discharge, Ear Pain, Tinnitus, Abnormal Hearing, Disequilibrium, Dizziness, Other Nose/Mouth/Throat: absent: As Per HPI, Epistaxis, Nasal Congestion, Nasal Discharge, Nasal Obstruction, Nasal Trauma, Nose Pain, Post Nasal Drip, Sinus Pain, Sinus Pressure, Bleeding Gums, Change in Voice, Dental Pain, Dry Mouth, Dysphagia, Halitosis, Hoarsness, Lip Swelling, Mouth Lesions, Mouth Pain, Odynophagia, Sore Throat, Throat Swelling, Tongue Swelling, Facial Pain, Neck Pain, Neck Mass, Other - Breasts Breasts: absent: As Per HPI, Change in Shape, Mass, Pain, Nipple Discharge, Nipple Inversion, Skin Changes, Swelling, Other - Cardiovascular Cardiovascular: absent: As Per HPI, Acrocyanosis, Chest Pain, Chest Pain at Rest , Chest Pain with Activity, Claudication, Diaphoresis, Dyspnea, Dyspnea on Exertion, Edema, Irregular Heart Rhythm, Pain Radiating to Arm/Neck/Jaw, Leg Edema, Leg Ulcers, Lightheadedness, Orthopnea, Palpitations, Paroxysmal Nocturnal Dyspnea, Pedal Edema, Radiating Pain, Rapid Heart Rate, Slow Heart Rate, Syncope, Other - Respiratory Respiratory: Cough, Dyspnea - Gastrointestinal Gastrointestinal: absent: As Per HPI, Abdominal Pain, Belching, Bloating, Change in Bowel Habits, Change in Stool Character, Coffee Ground Emesis, Constipation, Cramping, Diarrhea, Dyspepsia, Dysphagia, Early Satiety, Excessive Flatus, Fecal Incontinence, Heartburn, Hematemesis, Hematochezia, Loose Stools, Melena, Nausea, Odynophagia, Temesmus, Vomiting, Other - Genitourinary Genitourinary: absent: As Per HPI, Change in Urinary Stream, Difficulty Urinating, Dysuria, Flank Pain, Hematuria, Pyuria, Nocturia, Urinary Incontinence, Urinary Frequency, Urinary Hesitance, Urinary Urgency, Voiding Freq/Small Amts, Freq UTI, Hx Renal/Bladder Calculi, Hx /Renal Surgery, Bladder Distension, Other - Reproductive: Female Reproductive:Female: absent: As Per HPI, Amenorrhea, Amenorrhea/ Control, Currently Menstual, Cycle <21 Days, Cycle >35 Days, Cycle Variable, Menses 1-7 Days, Menses >/= 8 Days, Menses Variable, Cycle > 4 Weeks Between, No Menses for 6 Months, Heavy Menses, Light Menses, Normal Menses, Spotting Between Cycles , S/P Hysterectomy, Menopausal, Post Menopausal, Premenarche, Abnormal Vaginal Bleeding, Dysmenorrhea, Dyspareunia, Genital Lesions, Genital Pruritis, Pelvic Pain, Prolapse Symptoms, Sexual Dysfunction, Vaginal Discharge, Vaginal Dryness , Vaginal Odor, Vaginal Pruritis, Other - Menstruation Menstruation: absent: As Per HPI, Amenorrhea, Amenorrhea/ Control, Currently Menstual, Cycle <21 Days, Cycle >35 Days, Cycle Variable, Menses 1-7 Days, Menses >/= 8 Days, Menses Variable, Cycle > 4 Weeks Between, No Menses for 6 Months, Heavy Menses, Light Menses, Normal Menses, Spotting Between Cycles , S/P Hysterectomy, Menopausal, Post Menopausal, Premenarche, Abnormal Vaginal Bleeding, Dysmenorrhea, Other - Musculoskeletal Musculoskeletal: As Per HPI - Integumentary Integumentary: As Per HPI - Neurological Neurological: As Per HPI - Psychiatric Psychiatric: absent: As Per HPI, Abnormal Sleep Pattern, Anhedonia, Anxiety, Auditory Hallucinations, Behavioral Changes, Change in Appetite, Change in Libido, Confusion, Depression, Difficulty Concentrating, Hallucinations, Homicidal Ideation, Hopelessness, Irritability, Memory Loss, Mood Swings, Panic Attacks, Paranoia, Suicidal Ideation, Visual Hallucinations, Tactile Hallucinations, Other - Endocrine Endocrine: absent: As Per HPI, Change in Body Appearance, Change in Libido, Cold Intolorance, Deepening of Voice, Excessive Sweating, Fatigue, Flushing, Heat Intolorance, Increase in Ring/Shoe/Hat Size, Palpitations, Polydipsia, Polyphagia, Polyuria, Other - Hematologic/Lymphatic Hematologic: As Per HPI Past Patient History - Infectious Disease Hx of Infectious Diseases: None - Tetanus Immunizations Tetanus Immunization: Unknown, Up to Date - Past Medical History & Family History Past Medical History?: Yes - Past Social History Smoking Status: Never Smoked Chewing Tobacco Use: No Cigar Use: No Alcohol: None Drugs: Denies Home Situation {Lives}: With Family - CARDIAC Hx Congestive Heart Failure: Yes Hx Hypertension: Yes - PULMONARY Hx Chronic Obstructive Pulmonary Disease (COPD): Yes (EMPHYSEMA) - NEUROLOGICAL Hx Neurological Disorder: No Hx Vertigo: Yes - HEENT Hx HEENT Problems: No - RENAL Hx Chronic Kidney Disease: No - ENDOCRINE/METABOLIC Hx Diabetes Mellitus Type 2: Yes - HEMATOLOGICAL/ONCOLOGICAL Hx Anemia: Yes Hx Blood Transfusions: Yes - INTEGUMENTARY Hx Dermatological Problems: No Other/Comment: BLE w/ cauliflowered skin - MUSCULOSKELETAL/RHEUMATOLOGICAL Hx Arthritis: Yes (NECK, L SH; B/L KNEES) - GASTROINTESTINAL Hx Gastritis: Yes - GENITOURINARY/GYNECOLOGICAL Hx Genitourinary Disorders: No Para: 2 - PSYCHIATRIC Hx Physical Abuse: No Hx Schizophrenia: No Hx Sexual Abuse: No Hx Substance Use: No - SURGICAL HISTORY Hx Cholecystectomy: Yes (in 2010) Hx Tonsillectomy: Yes (8yrs old) - ANESTHESIA Hx Anesthesia: Yes Hx Anesthesia Reactions: No Hx Malignant Hyperthermia: No Meds Allergies/Adverse Reactions: Allergies Allergy/AdvReac Type Severity Reaction Status Date / Time Gadolinium-Containing Allergy ITCHING Verified 12/13/16 15:45 Contrast Medi - Medications Medications: Current Medications Acetaminophen/Codeine Phosphate (Tylenol/Codeine 300 Mg/30 Mg) 1 ea PO Q4 PRN PRN Reason: Pain, moderate (4-7) Last Admin: 03/06/17 08:25 Dose: 1 ea Albuterol Sulfate (Albuterol 0.042% Inhal Tricia (1.25mg/3ml) Ud) 1.25 mg INH RTID [facility] Last Admin: 03/07/17 13:10 Dose: 1.25 mg Calcium/Vitamin D (Oscal-D 250 Mg-125 Units Tab) 1 tab PO DAILY [facility] Last Admin: 03/07/17 09:43 Dose: 1 tab Ferrous Sulfate (Feosol) 325 mg PO DAILY [facility] Last Admin: 03/07/17 09:42 Dose: 325 mg Folic Acid (Folic Acid) 1 mg PO DAILY [facility] Last Admin: 03/07/17 09:42 Dose: 1 mg Furosemide (Lasix) 40 mg PO DAILY [facility] Last Admin: 03/07/17 09:47 Dose: 40 mg Piperacillin Sod/Tazobactam Sod (Zosyn 3.375 Gm Iv Premix) 3.375 gm in 50 mls @ 100 mls/hr IVPB Q6H [facility] Last Admin: 03/07/17 13:24 Dose: 100 mls/hr Insulin Glargine (Lantus) 8 unit SC HS [facility] Last Admin: 03/06/17 22:26 Dose: 8 units Insulin Human Regular (Novolin R) 0 unit SC ACHS [facility] PRN Reason: Protocol Last Admin: 03/07/17 11:35 Dose: Not Given Lactic Acid (Lac-Hydrin 12% Lotion (225 G)) 0 gm EXT BID [facility] Last Admin: 03/07/17 09:44 Dose: 1 applic Loperamide HCl (Imodium) 2 mg PO Q4H PRN PRN Reason: Diarrhea Lorazepam (Ativan) 0.5 mg PO HS PRN PRN Reason: Anxiety Last Admin: 03/07/17 05:42 Dose: 0.5 mg Multivitamins (Hexavitamin) 1 tab PO DAILY [facility] Last Admin: 03/07/17 09:42 Dose: 1 tab Neomycin/Polymyxin/Gramicidin (Gramicidin/Neomycin/Polymyxin B) 0 ml OP DAILY [facility] Stop: 03/10/17 23:59 Last Admin: 03/07/17 09:44 Dose: 1 applic Physical Exam - Constitutional Appears: Non-toxic, No Acute Distress, Confused, Chronically Ill - Head Exam Head Exam: NORMOCEPHALIC - Eye Exam Eye Exam: EOMI, PERRL. absent: Scleral icterus - ENT Exam ENT Exam: Mucous Membranes Dry, Normal External Ear Exam - Neck Exam Neck exam: Negative for: Lymphadenopathy - Respiratory Exam Respiratory Exam: Decreased Breath Sounds, Rhonchi - Cardiovascular Exam Cardiovascular Exam: REGULAR RHYTHM, +S1, +S2 - GI/Abdominal Exam GI & Abdominal Exam: Diminished Bowel Sounds, Distended, Soft. absent: Guarding , Rebound, Rigid, Tenderness - Rectal Exam Rectal Exam: Deferred - Exam Exam: NORMAL INSPECTION - Extremities Exam Extremities exam: Positive for: pedal edema, tenderness. Negative for: calf tenderness, pedal pulses present Additional comments: dry scaly patches on both legs + edema - Back Exam Back exam: absent: CVA tenderness (L), CVA tenderness (R), paraspinal tenderness - Neurological Exam Neurological exam: Alert, Altered, CN II-XII Intact, Motor Sensory Deficit - Psychiatric Exam Psychiatric exam: Depressed - Skin Skin Exam: Dry Results - Vital Signs Recent Vital Signs: Last Vital Signs Temp 98.5 F 03/07/17 00:00 Pulse 69 03/07/17 12:50 Resp 20 03/07/17 00:00 BP 110/70 03/07/17 12:50 Pulse Ox 97 03/07/17 12:50 - Labs Result Diagrams: 03/07/17 06:48 03/07/17 06:48 Labs: Laboratory Results - last 24 hr 03/06/17 03/06/17 03/06/17 16:26 19:50 21:04 WBC RBC Hgb Hct MCV MCH MCHC RDW Plt Count MPV Sodium 139 Potassium 3.8 Chloride 108 H Carbon Dioxide 18 L Anion Gap 17 BUN 19 H Creatinine 1.0 Est GFR ( Amer) > 60 Est GFR (Non-Af Amer) 54 POC Glucose (mg/dL) 88 134 H Random Glucose 104 Calcium 7.3 L Total Bilirubin 1.6 H AST 26 ALT 20 Alkaline Phosphatase 316 H D Total Protein 6.3 Albumin 2.3 L Globulin 4.0 H Albumin/Globulin Ratio 0.6 L 03/07/17 03/07/17 03/07/17 06:48 06:48 07:17 WBC 39.3 H* RBC 3.01 L Hgb 9.1 L Hct 28.9 L MCV 96.0 MCH 30.3 MCHC 31.5 L RDW 23.1 H Plt Count 40 L D MPV 8.4 Sodium 137 Potassium 3.5 L Chloride 106 Carbon Dioxide 21 L Anion Gap 14 BUN 19 H Creatinine 1.0 Est GFR ( Amer) > 60 Est GFR (Non-Af Amer) 54 POC Glucose (mg/dL) 95 Random Glucose 79 Calcium 7.1 L Total Bilirubin AST ALT Alkaline Phosphatase Total Protein Albumin Globulin Albumin/Globulin Ratio 03/07/17 11:11 WBC RBC Hgb Hct MCV MCH MCHC RDW Plt Count MPV Sodium Potassium Chloride Carbon Dioxide Anion Gap BUN Creatinine Est GFR ( Amer) Est GFR (Non-Af Amer) POC Glucose (mg/dL) 70 Random Glucose Calcium Total Bilirubin AST ALT Alkaline Phosphatase Total Protein Albumin Globulin Albumin/Globulin Ratio Assessment & Plan (1) Myelodysplasia (myelodysplastic syndrome) Status: Acute (2) Severe anemia Status: Acute (3) Acute on chronic diastolic (congestive) heart failure Status: Acute (4) Anemia Status: Acute Priority: High (5) Degenerative disc disease at L5-S1 level Status: Acute Priority: Medium (6) Dehydration Status: Acute (7) Diabetes mellitus type 2 in obese Status: Acute Priority: Medium - Assessment and Plan (Free Text) Assessment: gram neg sepsis- source unclear- urine port ? may need to remove keke cath ??
[2017-03-07] MEDS ORDERED: Cefepime IV 2 gm in Dextrose 2 GM/100 ML BAG IVPB SCH (16:15)
[2017-03-07] MEDS: Cefepime IV 2 gm in Dextrose 2 GM/100 ML BAG IVPB SCH (18:00)
[2017-03-07] MEDS: metroNIDAZOLE IV 500 mg/100 ml 500 MG/100 ML BAG IVPB SCH (18:00)
[2017-03-07] MEDS: (Lantus) Insulin Glargine, Recombinant SC SCH (22:03)
--- NOTE | 2017-03-07 22:39 | CP.PCM.PN ---
Subjective - Date & Time of Evaluation Date of Evaluation: 03/07/17 Time of Evaluation: 13:20 - Subjective Subjective: Patient depressed and mildly confused. WBCs39,000 and patient has positive blood cultures. Consultation requested with Dr Prabhakar. Will repeat labs in AM. Objective - Vital Signs/Intake and Output Vital Signs (last 24 hours): Temp Pulse Resp BP Pulse Ox 97.7 F 97 H 20 108/59 L 96 03/07/17 15:15 03/07/17 15:15 03/07/17 15:15 03/07/17 15:15 03/07/17 15:15 Intake and Output: 03/07/17 03/08/17 18:59 06:59 Intake Total 700 Balance 700 - Medications Medications: Current Medications Acetaminophen/Codeine Phosphate (Tylenol/Codeine 300 Mg/30 Mg) 1 ea PO Q4 PRN PRN Reason: Pain, moderate (4-7) Last Admin: 03/06/17 08:25 Dose: 1 ea Albuterol Sulfate (Albuterol 0.042% Inhal Tricia (1.25mg/3ml) Ud) 1.25 mg INH RTID [facility] Last Admin: 03/07/17 20:09 Dose: 1.25 mg Calcium/Vitamin D (Oscal-D 250 Mg-125 Units Tab) 1 tab PO DAILY [facility] Last Admin: 03/07/17 09:43 Dose: 1 tab Ferrous Sulfate (Feosol) 325 mg PO DAILY [facility] Last Admin: 03/07/17 09:42 Dose: 325 mg Folic Acid (Folic Acid) 1 mg PO DAILY [facility] Last Admin: 03/07/17 09:42 Dose: 1 mg Furosemide (Lasix) 40 mg PO DAILY [facility] Last Admin: 03/07/17 09:47 Dose: 40 mg Metronidazole (Flagyl) 500 mg in 100 mls @ 100 mls/hr IVPB Q8H [facility] Last Admin: 03/07/17 18:00 Dose: 100 mls/hr Cefepime HCl (Maxipime Iv 2 Gm Premix) 2 gm in 100 mls @ 200 mls/hr IVPB Q12H [facility] Stop: 03/12/17 18:01 Last Admin: 03/07/17 18:00 Dose: 200 mls/hr Insulin Glargine (Lantus) 8 unit SC HS [facility] Last Admin: 03/07/17 22:03 Dose: 8 units Insulin Human Regular (Novolin R) 0 unit SC ACHS JOSIE PRN Reason: Protocol Last Admin: 03/07/17 22:04 Dose: Not Given Lactic Acid (Lac-Hydrin 12% Lotion (225 G)) 0 gm EXT BID [facility] Last Admin: 03/07/17 18:00 Dose: 1 applic Loperamide HCl (Imodium) 2 mg PO Q4H PRN PRN Reason: Diarrhea Lorazepam (Ativan) 0.5 mg PO HS PRN PRN Reason: Anxiety Last Admin: 03/07/17 05:42 Dose: 0.5 mg Multivitamins (Hexavitamin) 1 tab PO DAILY [facility] Last Admin: 03/07/17 09:42 Dose: 1 tab Neomycin/Polymyxin/Gramicidin (Gramicidin/Neomycin/Polymyxin B) 0 ml OP DAILY [facility] Stop: 03/10/17 23:59 Last Admin: 03/07/17 09:44 Dose: 1 applic - Labs Labs: 03/07/17 06:48 03/07/17 06:48 - Constitutional Appears: Chronically Ill - Head Exam Head Exam: NORMOCEPHALIC - Eye Exam Eye Exam: Normal appearance Pupil Exam: NORMAL ACCOMODATION - ENT Exam ENT Exam: Normal Oropharynx - Neck Exam Neck Exam: Normal Inspection - Respiratory Exam Respiratory Exam: Decreased Breath Sounds - Cardiovascular Exam Cardiovascular Exam: REGULAR RHYTHM - GI/Abdominal Exam GI & Abdominal Exam: Hyperactive Bowel Sounds - Rectal Exam Rectal Exam: Deferred - Exam External exam: NORMAL EXTERNAL EXAM - Extremities Exam Extremities Exam: Tenderness - Back Exam Back Exam: NORMAL INSPECTION - Psychiatric Exam Psychiatric exam: Depressed - Skin Skin Exam: Dry Assessment and Plan (1) Myelodysplasia (myelodysplastic syndrome) Status: Acute (2) Severe anemia Status: Acute (3) Degenerative disc disease at L5-S1 level Status: Acute (4) Osteoarthritis Status: Acute (5) Thrombocytopenia Status: Acute
[2017-03-08] MEDS: metroNIDAZOLE IV 500 mg/100 ml 500 MG/100 ML BAG IVPB SCH ×3 (02:09→18:11)
[2017-03-08] MEDS: Cefepime IV 2 gm in Dextrose 2 GM/100 ML BAG IVPB SCH (05:56)
[2017-03-08] MEDS: Albuterol 0.042% Inhal Sol (1.25 mg/3 mL) UD INH SCH ×3 (07:25→19:39)
[2017-03-08] MEDS: (Novolin R) Insulin Human Regular 100 units/ml vial SC SCH ×4 (08:24→21:30)
[2017-03-08 08:39] LABS: BASO # 0.1 K/uL (0.0-0.2); BASO % 0.3 % (0.0-2.0); EOS # 0.8 K/uL (0.0-0.7); EOS % 3.6 % (0.0-4.0); HEMATOCRIT 27.9 % (34.0-47.0); LYMPH # 1.6 K/uL (1.0-4.3); MEAN CELL VOLUME 96.1 fL (81.0-99.0); MEAN CORPUSCULAR HEMOGLOBIN 30.6 pg (27.0-31.0); MEAN CORPUSCULAR HGB CONC 31.8 g/dL (33.0-37.0); MEAN PLATELET VOLUME 7.5 fL (7.2-11.7); MONO # 3.5 K/uL (0.0-0.8); MONO % 15.4 % (0.0-10.0); RED CELL DISTRIBUTION WIDTH 22.2 % (11.5-14.5); WHITE BLOOD COUNT 22.8 K/uL (4.8-10.8)
[2017-03-08 08:55] LABS: PLATELET COUNT 24 K/uL (130-400)
[2017-03-08 09:03] LABS: POTASSIUM 3.1 mmol/L (3.6-5.2)
[2017-03-08 10:26] LABS: NEUTROPHIL 72 % (50-75); NUCLEATED RED BLOOD CELL 2 % (0-0); TOTAL CELLS COUNTED 100
[2017-03-08] MEDS: Multiple Vitamins Tab PO SCH (10:51)
[2017-03-08] MEDS: Neomycin-Polymyxin-Gramicidin Ophth Soln (10 ml) OP SCH (10:51)
[2017-03-08] MEDS: Ammonium Lactate 12% Lotion (225 g) EXT SCH ×2 (10:52→18:14)
[2017-03-08] MEDS: Calcium-Vit D 250 mg-125 Units Tab UD PO SCH (10:52)
[2017-03-08] MEDS ORDERED: Tigecycline 100 MG in Dextrose 5% In Water 100 ML IVPB ONE (11:33)
[2017-03-08] MEDS: Potassium Chloride 20 mEq ER Tab PO SCH (12:24)
--- NOTE | 2017-03-08 15:27 | PN ---
SUBJECTIVE: The patient is alert, oriented. PHYSICAL EXAMINATION: VITAL SIGNS: She is afebrile with blood pressure 128/70, pulse 88, respiration 20, hemoglobin oxygen saturation of 96%. GENERAL: The patient is not in acute distress. She feels weak and tired. Pains are easier. There is no dyspnea at rest. No chest pain reported. HEART: Regular. Gallop rhythm not present. LUNGS: Diminished breath sounds over the lung bases. ABDOMEN: Soft. EXTREMITIES: Legs: Bilateral hyperpigmented skin scales. The patient has been seen by the infectious disease specialist and also seen by hematology and oncology for MDS. LABORATORY DATA: Her white count 22,800, hemoglobin 8.9, platelet count is 24,000. Serum sodium is 138, potassium reported to be 3.1, chloride 106, BUN 23, glucose 116. HIV 1 and 2 antibodies screening reported negative. Chest x-ray shows mild congestive changes and left infiltrate. The patient has Port-A-Cath. IMPRESSION: Respiratory insufficiency, bronchitis, hypertensive cardiovascular disease, pulmonary congestive changes, sepsis, myeloblastic syndrome, arthritis, and diabetes mellitus. PLAN: To continue with the current measures including the antibiotics as per infectious disease and hematology/oncology followup and correction of electrolyte imbalance. Abundio Silva MD
--- NOTE | 2017-03-08 19:06 | CP.PCM.PN ---
Subjective - Date & Time of Evaluation Date of Evaluation: 03/08/17 Time of Evaluation: 08:00 - Subjective Subjective: await heme eval IV rx in progress MDRO blood possibly portacath related ? Pneumonia vs infected heel may need to remove will order ceretec- hx infected left heel recc podiatry eval cont tygacil/ genta poor prognosis Objective - Vital Signs/Intake and Output Vital Signs (last 24 hours): Temp Pulse Resp BP Pulse Ox 97.6 F 93 H 20 128/77 100 03/08/17 15:00 03/08/17 15:00 03/08/17 15:00 03/08/17 15:00 03/08/17 15:00 - Medications Medications: Current Medications Acetaminophen/Codeine Phosphate (Tylenol/Codeine 300 Mg/30 Mg) 1 ea PO Q4 PRN PRN Reason: Pain, moderate (4-7) Last Admin: 03/06/17 08:25 Dose: 1 ea Albuterol Sulfate (Albuterol 0.042% Inhal Tricia (1.25mg/3ml) Ud) 1.25 mg INH RTID [facility] Last Admin: 03/08/17 13:16 Dose: 1.25 mg Calcium/Vitamin D (Oscal-D 250 Mg-125 Units Tab) 1 tab PO DAILY [facility] Last Admin: 03/08/17 10:52 Dose: 1 tab Ferrous Sulfate (Feosol) 325 mg PO DAILY [facility] Last Admin: 03/08/17 10:51 Dose: 325 mg Folic Acid (Folic Acid) 1 mg PO DAILY [facility] Last Admin: 03/08/17 10:51 Dose: 1 mg Furosemide (Lasix) 40 mg PO DAILY [facility] Last Admin: 03/08/17 10:55 Dose: 40 mg Metronidazole (Flagyl) 500 mg in 100 mls @ 100 mls/hr IVPB Q8H [facility] Last Admin: 03/08/17 18:11 Dose: 100 mls/hr Tigecycline 50 mg/ Dextrose 100 mls @ 100 mls/hr IVPB Q12H [facility] Insulin Glargine (Lantus) 8 unit SC HS [facility] Last Admin: 03/07/17 22:03 Dose: 8 units Insulin Human Regular (Novolin R) 0 unit SC ACHS [facility]OSIE PRN Reason: Protocol Last Admin: 03/08/17 18:15 Dose: Not Given Lactic Acid (Lac-Hydrin 12% Lotion (225 G)) 0 gm EXT BID [facility] Last Admin: 03/08/17 18:14 Dose: 1 applic Loperamide HCl (Imodium) 2 mg PO Q4H PRN PRN Reason: Diarrhea Lorazepam (Ativan) 0.5 mg PO HS PRN PRN Reason: Anxiety Last Admin: 03/07/17 05:42 Dose: 0.5 mg Multivitamins (Hexavitamin) 1 tab PO DAILY [facility] Last Admin: 03/08/17 10:51 Dose: 1 tab Neomycin/Polymyxin/Gramicidin (Gramicidin/Neomycin/Polymyxin B) 0 ml OP DAILY [facility] Stop: 03/10/17 23:59 Last Admin: 03/08/17 10:51 Dose: 1 applic Potassium Chloride (K-Dur 20 Meq Er Tab) 20 meq PO DAILY [facility] Last Admin: 03/08/17 12:24 Dose: 20 meq - Labs Labs: 03/08/17 08:28 03/08/17 08:28 - Constitutional Appears: Non-toxic, Cachectic, Chronically Ill - Head Exam Head Exam: NORMOCEPHALIC - Eye Exam Eye Exam: absent: Scleral icterus - ENT Exam ENT Exam: Mucous Membranes Dry - Neck Exam Neck Exam: absent: Lymphadenopathy - Respiratory Exam Respiratory Exam: Decreased Breath Sounds, Rhonchi - Cardiovascular Exam Cardiovascular Exam: REGULAR RHYTHM - GI/Abdominal Exam GI & Abdominal Exam: Distended, Soft - Rectal Exam Rectal Exam: Deferred - Exam Exam: NORMAL INSPECTION - Extremities Exam Extremities Exam: absent: Pedal Edema - Back Exam Back Exam: absent: CVA tenderness (L), CVA tenderness (R) - Neurological Exam Neurological Exam: Alert, Awake Assessment and Plan (1) Myelodysplasia (myelodysplastic syndrome) Status: Acute (2) Severe anemia Status: Acute (3) Acute on chronic diastolic (congestive) heart failure Status: Acute (4) Anemia Status: Acute (5) Degenerative disc disease at L5-S1 level Status: Acute (6) Dehydration Status: Acute (7) Diabetes mellitus type 2 in obese Status: Acute (8) Carbapenem-resistant bacterial infection Status: Acute (9) Carbapenem-resistant bacterial infection Status: Acute
[2017-03-08] MEDS: (Lantus) Insulin Glargine, Recombinant SC SCH (21:28)
[2017-03-09] MEDS: Tigecycline 50 MG in Dextrose 5% In Water 100 ML IVPB SCH ×2 (00:13→11:33)
[2017-03-09] MEDS: metroNIDAZOLE IV 500 mg/100 ml 500 MG/100 ML BAG IVPB SCH ×3 (01:24→17:30)
[2017-03-09 07:01] LABS: ALB/GLOB RATIO 0.4 (1.0-2.1); ALKALINE PHOSPHATASE 297 U/L (38-126); ALT/SGPT 33 U/L (9-52); AST/SGOT 27 U/L (14-36); BLOOD UREA NITROGEN 20 mg/dL (7-17); CALCIUM 7.5 mg/dl (8.6-10.4); CARBON DIOXIDE 23 mmol/L (22-30); CHLORIDE 108 mmol/L (98-107); GFR AFRICAN-AMERICAN > 60; POTASSIUM 3.2 mmol/L (3.6-5.2); SODIUM 143 mmol/L (132-148); TOTAL PROTEIN 7.1 g/dL (6.3-8.3)
[2017-03-09 07:03] LABS: GLUCOSE,RANDOM 39 mg/dL (65-105)
[2017-03-09] MEDS ORDERED: Dextrose 50% SYRINGE Inj (50 ml) IV STA (07:19)
[2017-03-09 07:30] LABS: BASO # 0.1 K/uL (0.0-0.2)
[2017-03-09 07:43] LABS: BASO % 0.5 % (0.0-2.0); EOS % 0.2 % (0.0-4.0); HEMATOCRIT 28.9 % (34.0-47.0); LYMPH % 10.6 % (20.0-40.0); MEAN CELL VOLUME 95.2 fL (81.0-99.0); MEAN CORPUSCULAR HEMOGLOBIN 30.4 pg (27.0-31.0); MEAN CORPUSCULAR HGB CONC 31.9 g/dL (33.0-37.0); MEAN PLATELET VOLUME 7.8 fL (7.2-11.7); MONO % 19.9 % (0.0-10.0); RED CELL DISTRIBUTION WIDTH 23.6 % (11.5-14.5); WHITE BLOOD COUNT 22.9 K/uL (4.8-10.8)
[2017-03-09 07:44] LABS: LYMPH # 2.4 K/uL (1.0-4.3); MONO # 4.6 K/uL (0.0-0.8)
[2017-03-09] MEDS: Albuterol 0.042% Inhal Sol (1.25 mg/3 mL) UD INH SCH ×3 (08:08→19:36)
[2017-03-09] MEDS: (Novolin R) Insulin Human Regular 100 units/ml vial SC SCH ×4 (08:28→22:44)
[2017-03-09] MEDS: Neomycin-Polymyxin-Gramicidin Ophth Soln (10 ml) OP SCH (09:56)
[2017-03-09] MEDS: Calcium-Vit D 250 mg-125 Units Tab UD PO SCH (09:56)
[2017-03-09] MEDS: Potassium Chloride 20 mEq ER Tab PO SCH (09:57)
[2017-03-09] MEDS: Multiple Vitamins Tab PO SCH (09:58)
--- NOTE | 2017-03-09 10:07 | RAD ---
PROCEDURE: Bilateral Feet Radiographs. HISTORY: r/o OM COMPARISON: None. FINDINGS: BONES: There is diffuse bone demineralization. There is no acute fracture or bone destruction. There are no apparent erosive changes however evaluation is limited due to diffuse bone demineralization. There are prominent plantar calcaneal spurs. JOINTS: Right Foot: Normal. No osteoarthritis. Left Foot: Normal. No osteoarthritis. SOFT TISSUES: There is diffuse soft tissue swelling in both feet. OTHER FINDINGS: None. IMPRESSION: No radiographic evidence for osteomyelitis. Diffuse soft tissue swelling in bilateral feet may represent cellulitis in the appropriate clinical setting.
[2017-03-09] MEDS: Ammonium Lactate 12% Lotion (225 g) EXT SCH ×3 (10:31→22:44)
[2017-03-09 10:46] LABS: MAGNESIUM 1.8 mg/dL (1.6-2.3)
--- NOTE | 2017-03-09 15:39 | PN ---
SUBJECTIVE: The patient is in bed. PHYSICAL EXAMINATION: VITAL SIGNS: Afebrile with blood pressure 110/70, pulse 100 per minute, respirations 20 per minute and hemoglobin oxygen saturation of 100% on room air. GENERAL: The patient is not in acute distress, but is lethargic. HEART: Regular, there is no gallop rhythm. LUNGS: Diminished breath sounds over lung bases. ABDOMEN: Soft. EXTREMITIES: Legs, hyperpigmented scaly skin on both legs. LABORATORY DATA: Her white count is 22,900, hemoglobin 9.2, platelets [id number]. Sodium is 143, potassium is 3.2, chloride is 108, bicarb is 23. Albumin is 2.1. We will do chest x-ray. 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 PLAN: To continue with the current medications and antibiotics as per Infectious Disease specialist and followup with hematology/oncology. Abundio Silva MD [facility]
--- NOTE | 2017-03-09 16:25 | CP.PCM.CON ---
History of Present Illness - History of Present Illness History of Present Illness: Surgery: Dr. Bateman CC: Bacteremia HPI: Pt is a poor historian. History gathered from review of chart. 76F w. pmh of MDS, DM, HTN, PVD, CHF, OA, COPD, and depression presented to ED on 03/04 w. fatigue as well as neck and L shoulder pain. Work up this far has shown the pt to the multi drug resistant klebsieally bacteremia, PNA, and cellulitis in B/L LE. Pt had portacath placed in September 2015 for treatment of MDS. Portacath is potential source of pt's sepsis. Surgery has been consulted for portacath removal. PMH: CHF, PVD, HTN, DM, MDS, OA, COPD, depression PSH: cholecystectomy, tonsillectomy, R subclavian portacath Meds: MAR reviewed ALL: gadolinium Social: No ETOH/Tobacco/Drugs Fhx: non-contributory Review of Systems - Review of Systems Systems not reviewed;Unavailable: Altered Mental Status Past Patient History - Infectious Disease Hx of Infectious Diseases: None - Tetanus Immunizations Tetanus Immunization: Unknown, Up to Date - Past Medical History & Family History Past Medical History?: Yes - Past Social History Smoking Status: Never Smoked Chewing Tobacco Use: No Cigar Use: No Alcohol: None Drugs: Denies Home Situation {Lives}: With Family - CARDIAC Hx Congestive Heart Failure: Yes Hx Hypertension: Yes - PULMONARY Hx Chronic Obstructive Pulmonary Disease (COPD): Yes (EMPHYSEMA) - NEUROLOGICAL Hx Neurological Disorder: No Hx Vertigo: Yes - HEENT Hx HEENT Problems: No - RENAL Hx Chronic Kidney Disease: No - ENDOCRINE/METABOLIC Hx Diabetes Mellitus Type 2: Yes - HEMATOLOGICAL/ONCOLOGICAL Hx Anemia: Yes Hx Blood Transfusions: Yes - INTEGUMENTARY Hx Dermatological Problems: No Other/Comment: BLE w/ cauliflowered skin - MUSCULOSKELETAL/RHEUMATOLOGICAL Hx Arthritis: Yes (NECK, L SH; B/L KNEES) - GASTROINTESTINAL Hx Gastritis: Yes - GENITOURINARY/GYNECOLOGICAL Hx Genitourinary Disorders: No Para: 2 - PSYCHIATRIC Hx Physical Abuse: No Hx Schizophrenia: No Hx Sexual Abuse: No Hx Substance Use: No - SURGICAL HISTORY Hx Cholecystectomy: Yes (in 2010) Hx Tonsillectomy: Yes (8yrs old) - ANESTHESIA Hx Anesthesia: Yes Hx Anesthesia Reactions: No Hx Malignant Hyperthermia: No Meds Allergies/Adverse Reactions: Allergies Allergy/AdvReac Type Severity Reaction Status Date / Time Gadolinium-Containing Allergy ITCHING Verified 12/13/16 15:45 Contrast Medi - Medications Medications: Current Medications Acetaminophen/Codeine Phosphate (Tylenol/Codeine 300 Mg/30 Mg) 1 ea PO Q4 PRN PRN Reason: Pain, moderate (4-7) Last Admin: 03/06/17 08:25 Dose: 1 ea Albuterol Sulfate (Albuterol 0.042% Inhal Tricia (1.25mg/3ml) Ud) 1.25 mg INH RTID [facility] Last Admin: 03/09/17 14:33 Dose: 1.25 mg Calcium/Vitamin D (Oscal-D 250 Mg-125 Units Tab) 1 tab PO DAILY [facility] Last Admin: 03/09/17 09:56 Dose: 1 tab Ferrous Sulfate (Feosol) 325 mg PO DAILY [facility] Last Admin: 03/09/17 09:58 Dose: 325 mg Folic Acid (Folic Acid) 1 mg PO DAILY [facility] Last Admin: 03/09/17 09:57 Dose: 1 mg Furosemide (Lasix) 40 mg PO DAILY [facility] Last Admin: 03/09/17 09:57 Dose: 40 mg Metronidazole (Flagyl) 500 mg in 100 mls @ 100 mls/hr IVPB Q8H [facility] Last Admin: 03/09/17 10:23 Dose: 100 mls/hr Tigecycline 50 mg/ Dextrose 100 mls @ 100 mls/hr IVPB Q12H [facility] Last Admin: 03/09/17 11:33 Dose: 100 mls/hr Gentamicin Sulfate 80 mg/ (Sodium Chloride) 102 mls @ 100 mls/hr IVPB Q24H [facility] Last Admin: 03/08/17 20:00 Dose: 100 mls/hr Insulin Glargine (Lantus) 8 unit SC HS [facility] Last Admin: 03/08/17 21:28 Dose: 8 units Insulin Human Regular (Novolin R) 0 unit SC ACHS [facility] PRN Reason: Protocol Last Admin: 03/09/17 11:55 Dose: Not Given Lactic Acid (Lac-Hydrin 12% Lotion (225 G)) 0 gm EXT BID [facility] Last Admin: 03/09/17 10:31 Dose: 1 applic Loperamide HCl (Imodium) 2 mg PO Q4H PRN PRN Reason: Diarrhea Lorazepam (Ativan) 0.5 mg PO HS PRN PRN Reason: Anxiety Last Admin: 03/09/17 02:32 Dose: 0.5 mg Multivitamins (Hexavitamin) 1 tab PO DAILY [facility] Last Admin: 03/09/17 09:58 Dose: 1 tab Neomycin/Polymyxin/Gramicidin (Gramicidin/Neomycin/Polymyxin B) 0 ml OP DAILY [facility] Stop: 03/10/17 23:59 Last Admin: 03/09/17 09:56 Dose: 1 applic Potassium Chloride (K-Dur 20 Meq Er Tab) 20 meq PO DAILY [facility] Last Admin: 03/09/17 09:57 Dose: 20 meq Physical Exam - Constitutional Appears: Confused - Head Exam Head Exam: ATRAUMATIC, NORMOCEPHALIC - Eye Exam Eye Exam: EOMI Pupil Exam: NORMAL ACCOMODATION - ENT Exam ENT Exam: Mucous Membranes Moist - Neck Exam Neck exam: Positive for: Full Rom - Respiratory Exam Respiratory Exam: NORMAL BREATHING PATTERN. absent: Accessory Muscle Use, Respiratory Distress - Cardiovascular Exam Additional comments: R subclavian portacath, site is clean/dry/intact, no erythema, no pus, no obvious signs of infection - GI/Abdominal Exam GI & Abdominal Exam: Soft. absent: Tenderness - Extremities Exam Additional comments: B/L LE, chronic venous stasis changes, +edema - Neurological Exam Neurological exam: Alert Results - Vital Signs Recent Vital Signs: Last Vital Signs Temp 98.2 F 03/09/17 15:00 Pulse 89 03/09/17 15:00 Resp 20 03/09/17 15:00 BP 127/63 03/09/17 15:00 Pulse Ox 100 03/09/17 15:00 - Labs Result Diagrams: 03/09/17 06:31 03/09/17 06:31 Labs: Laboratory Results - last 24 hr 03/08/17 03/08/17 03/09/17 16:26 21:30 06:31 WBC 22.9 H RBC 3.03 L Hgb 9.2 L Hct 28.9 L MCV 95.2 MCH 30.4 MCHC 31.9 L RDW 23.6 H Plt Count 23 L* MPV 7.8 Neut % (Auto) 68.8 Lymph % (Auto) 10.6 L [place] % (Auto) 19.9 H Eos % (Auto) 0.2 Baso % (Auto) 0.5 Neut # 15.8 H Lymph # 2.4 [place] # 4.6 H Eos # 0.0 Baso # 0.1 Sodium Potassium Chloride Carbon Dioxide Anion Gap BUN Creatinine Est GFR ( Amer) Est GFR (Non-Af Amer) POC Glucose (mg/dL) 111 H 98 Random Glucose Calcium Magnesium Total Bilirubin AST ALT Alkaline Phosphatase Total Protein Albumin Globulin Albumin/Globulin Ratio 03/09/17 03/09/17 03/09/17 06:31 07:17 07:32 WBC RBC Hgb Hct MCV MCH MCHC RDW Plt Count MPV Neut % (Auto) Lymph % (Auto) [place] % (Auto) Eos % (Auto) Baso % (Auto) Neut # Lymph # [place] # Eos # Baso # Sodium 143 Potassium 3.2 L Chloride 108 H Carbon Dioxide 23 Anion Gap 15 BUN 20 H Creatinine 1.0 Est GFR ( Amer) > 60 Est GFR (Non-Af Amer) 54 POC Glucose (mg/dL) 52 L 157 H Random Glucose 39 L* D Calcium 7.5 L Magnesium 1.8 Total Bilirubin 1.0 AST 27 ALT 33 Alkaline Phosphatase 297 H Total Protein 7.1 Albumin 2.1 L Globulin 5.0 H Albumin/Globulin Ratio 0.4 L 03/09/17 03/09/17 11:25 16:01 WBC RBC Hgb Hct MCV MCH MCHC RDW Plt Count MPV Neut % (Auto) Lymph % (Auto) [place] % (Auto) Eos % (Auto) Baso % (Auto) Neut # Lymph # [place] # Eos # Baso # Sodium Potassium Chloride Carbon Dioxide Anion Gap BUN Creatinine Est GFR ( Amer) Est GFR (Non-Af Amer) POC Glucose (mg/dL) 133 H 172 H Random Glucose Calcium Magnesium Total Bilirubin AST ALT Alkaline Phosphatase Total Protein Albumin Globulin Albumin/Globulin Ratio Assessment & Plan - Assessment and Plan (Free Text) Assessment: 76F w. thrombocytopenia and sespsis 2/2 klebsiella bacteremia with portacath as possible source -will plan for portacath removal on sunday -pt need to be medically optimized, ideally plts > 50k -will continue to follow -d/w attending Dianna PGY3
--- NOTE | 2017-03-09 18:36 | CP.PCM.PN ---
Subjective - Date & Time of Evaluation Date of Evaluation: 03/09/17 Time of Evaluation: 09:00 - Subjective Subjective: MDR Klebs in blood source unclear cont rx may be from Lung await dr Ricardo hays Objective - Vital Signs/Intake and Output Vital Signs (last 24 hours): Temp Pulse Resp BP Pulse Ox 98.2 F 89 20 127/63 100 03/09/17 15:00 03/09/17 15:00 03/09/17 15:00 03/09/17 15:00 03/09/17 15:00 Intake and Output: 03/09/17 03/09/17 06:59 18:59 Intake Total 320 Balance 320 - Medications Medications: Current Medications Acetaminophen/Codeine Phosphate (Tylenol/Codeine 300 Mg/30 Mg) 1 ea PO Q4 PRN PRN Reason: Pain, moderate (4-7) Last Admin: 03/06/17 08:25 Dose: 1 ea Albuterol Sulfate (Albuterol 0.042% Inhal Tricia (1.25mg/3ml) Ud) 1.25 mg INH RTID [facility] Last Admin: 03/09/17 14:33 Dose: 1.25 mg Calcium/Vitamin D (Oscal-D 250 Mg-125 Units Tab) 1 tab PO DAILY [facility] Last Admin: 03/09/17 09:56 Dose: 1 tab Ferrous Sulfate (Feosol) 325 mg PO DAILY [facility] Last Admin: 03/09/17 09:58 Dose: 325 mg Folic Acid (Folic Acid) 1 mg PO DAILY [facility] Last Admin: 03/09/17 09:57 Dose: 1 mg Furosemide (Lasix) 40 mg PO DAILY [facility] Last Admin: 03/09/17 09:57 Dose: 40 mg Metronidazole (Flagyl) 500 mg in 100 mls @ 100 mls/hr IVPB Q8H [facility] Last Admin: 03/09/17 17:30 Dose: 100 mls/hr Tigecycline 50 mg/ Dextrose 100 mls @ 100 mls/hr IVPB Q12H [facility] Last Admin: 03/09/17 11:33 Dose: 100 mls/hr Gentamicin Sulfate 80 mg/ (Sodium Chloride) 102 mls @ 100 mls/hr IVPB Q24H [facility] Last Admin: 03/08/17 20:00 Dose: 100 mls/hr Insulin Glargine (Lantus) 8 unit SC [facility] Last Admin: 03/08/17 21:28 Dose: 8 units Insulin Human Regular (Novolin R) 0 unit SC ACHS [facility] PRN Reason: Protocol Last Admin: 03/09/17 17:00 Dose: 1 unit Lactic Acid (Lac-Hydrin 12% Lotion (225 G)) 0 gm EXT BID [facility] Last Admin: 03/09/17 17:31 Dose: 1 applic Loperamide HCl (Imodium) 2 mg PO Q4H PRN PRN Reason: Diarrhea Lorazepam (Ativan) 0.5 mg PO HS PRN PRN Reason: Anxiety Last Admin: 03/09/17 02:32 Dose: 0.5 mg Multivitamins (Hexavitamin) 1 tab PO DAILY [facility] Last Admin: 03/09/17 09:58 Dose: 1 tab Neomycin/Polymyxin/Gramicidin (Gramicidin/Neomycin/Polymyxin B) 0 ml OP DAILY [facility] Stop: 03/10/17 23:59 Last Admin: 03/09/17 09:56 Dose: 1 applic Potassium Chloride (K-Dur 20 Meq Er Tab) 20 meq PO DAILY [facility] Last Admin: 03/09/17 09:57 Dose: 20 meq - Labs Labs: 03/09/17 06:31 03/09/17 06:31 - Constitutional Appears: Non-toxic, Chronically Ill - Head Exam Head Exam: NORMOCEPHALIC - Eye Exam Eye Exam: PERRL - ENT Exam ENT Exam: Mucous Membranes Dry - Neck Exam Neck Exam: absent: Lymphadenopathy - Respiratory Exam Respiratory Exam: Decreased Breath Sounds - Cardiovascular Exam Cardiovascular Exam: REGULAR RHYTHM - GI/Abdominal Exam GI & Abdominal Exam: Distended - Rectal Exam Rectal Exam: Deferred Assessment and Plan (1) Myelodysplasia (myelodysplastic syndrome) Status: Acute (2) Severe anemia Status: Acute (3) Acute on chronic diastolic (congestive) heart failure Status: Acute (4) Anemia Status: Acute (5) Degenerative disc disease at L5-S1 level Status: Acute (6) Dehydration Status: Acute (7) Diabetes mellitus type 2 in obese Status: Acute (8) Carbapenem-resistant bacterial infection Status: Acute (9) Carbapenem-resistant bacterial infection Status: Acute
--- NOTE | 2017-03-09 20:38 | CP.PCM.CON ---
History of Present Illness - History of Present Illness History of Present Illness: 76 year old female sen for ulcer of right heel chronic in nature . Review of Systems - Constitutional Constitutional: As Per HPI - EENT Eyes: As Per HPI Ears: As Per HPI Nose/Mouth/Throat: As Per HPI - Cardiovascular Cardiovascular: As Per HPI - Respiratory Respiratory: As Per HPI - Gastrointestinal Gastrointestinal: As Per HPI - Genitourinary Genitourinary: As Per HPI - Musculoskeletal Musculoskeletal: As Per HPI - Integumentary Integumentary: As Per HPI - Neurological Neurological: As Per HPI Past Patient History - Infectious Disease Hx of Infectious Diseases: None - Tetanus Immunizations Tetanus Immunization: Unknown, Up to Date - Past Medical History & Family History Past Medical History?: Yes - Past Social History Smoking Status: Never Smoked Chewing Tobacco Use: No Cigar Use: No Alcohol: None Drugs: Denies Home Situation {Lives}: With Family - CARDIAC Hx Congestive Heart Failure: Yes Hx Hypertension: Yes - PULMONARY Hx Chronic Obstructive Pulmonary Disease (COPD): Yes (EMPHYSEMA) - NEUROLOGICAL Hx Neurological Disorder: No Hx Vertigo: Yes - HEENT Hx HEENT Problems: No - RENAL Hx Chronic Kidney Disease: No - ENDOCRINE/METABOLIC Hx Diabetes Mellitus Type 2: Yes - HEMATOLOGICAL/ONCOLOGICAL Hx Anemia: Yes Hx Blood Transfusions: Yes - INTEGUMENTARY Hx Dermatological Problems: No Other/Comment: BLE w/ cauliflowered skin - MUSCULOSKELETAL/RHEUMATOLOGICAL Hx Arthritis: Yes (NECK, L SH; B/L KNEES) - GASTROINTESTINAL Hx Gastritis: Yes - GENITOURINARY/GYNECOLOGICAL Hx Genitourinary Disorders: No Para: 2 - PSYCHIATRIC Hx Physical Abuse: No Hx Schizophrenia: No Hx Sexual Abuse: No Hx Substance Use: No - SURGICAL HISTORY Hx Cholecystectomy: Yes (in 2010) Hx Tonsillectomy: Yes (8yrs old) - ANESTHESIA Hx Anesthesia: Yes Hx Anesthesia Reactions: No Hx Malignant Hyperthermia: No Meds Allergies/Adverse Reactions: Allergies Allergy/AdvReac Type Severity Reaction Status Date / Time Gadolinium-Containing Allergy ITCHING Verified 12/13/16 15:45 Contrast Medi - Medications Medications: Current Medications Acetaminophen/Codeine Phosphate (Tylenol/Codeine 300 Mg/30 Mg) 1 ea PO Q4 PRN PRN Reason: Pain, moderate (4-7) Last Admin: 03/06/17 08:25 Dose: 1 ea Albuterol Sulfate (Albuterol 0.042% Inhal Tricia (1.25mg/3ml) Ud) 1.25 mg INH RTID [facility] Last Admin: 03/09/17 19:36 Dose: 1.25 mg Calcium/Vitamin D (Oscal-D 250 Mg-125 Units Tab) 1 tab PO DAILY [facility] Last Admin: 03/09/17 09:56 Dose: 1 tab Ferrous Sulfate (Feosol) 325 mg PO DAILY [facility] Last Admin: 03/09/17 09:58 Dose: 325 mg Folic Acid (Folic Acid) 1 mg PO DAILY [facility] Last Admin: 03/09/17 09:57 Dose: 1 mg Furosemide (Lasix) 40 mg PO DAILY [facility] Last Admin: 03/09/17 09:57 Dose: 40 mg Metronidazole (Flagyl) 500 mg in 100 mls @ 100 mls/hr IVPB Q8H [facility] Last Admin: 03/09/17 17:30 Dose: 100 mls/hr Tigecycline 50 mg/ Dextrose 100 mls @ 100 mls/hr IVPB Q12H [facility] Last Admin: 03/09/17 11:33 Dose: 100 mls/hr Gentamicin Sulfate 80 mg/ (Sodium Chloride) 102 mls @ 100 mls/hr IVPB Q24H [facility] Last Admin: 03/08/17 20:00 Dose: 100 mls/hr Insulin Glargine (Lantus) 8 unit SC HS [facility] Last Admin: 03/08/17 21:28 Dose: 8 units Insulin Human Regular (Novolin R) 0 unit SC ACHS [facility] PRN Reason: Protocol Last Admin: 03/09/17 17:00 Dose: 1 unit Lactic Acid (Lac-Hydrin 12% Lotion (225 G)) 0 gm EXT BID [facility] Last Admin: 03/09/17 17:31 Dose: 1 applic Loperamide HCl (Imodium) 2 mg PO Q4H PRN PRN Reason: Diarrhea Lorazepam (Ativan) 0.5 mg PO HS PRN PRN Reason: Anxiety Last Admin: 03/09/17 02:32 Dose: 0.5 mg Multivitamins (Hexavitamin) 1 tab PO DAILY [facility] Last Admin: 03/09/17 09:58 Dose: 1 tab Neomycin/Polymyxin/Gramicidin (Gramicidin/Neomycin/Polymyxin B) 0 ml OP DAILY [facility] Stop: 03/10/17 23:59 Last Admin: 03/09/17 09:56 Dose: 1 applic Potassium Chloride (K-Dur 20 Meq Er Tab) 20 meq PO DAILY [facility] Last Admin: 03/09/17 09:57 Dose: 20 meq Physical Exam - Extremities Exam Additional comments: Chronic lymphedema b/l with Xerosis cutis b/l Heel ulcer right resolved well .left heel intact . Results - Vital Signs Recent Vital Signs: Last Vital Signs Temp 98.2 F 03/09/17 15:00 Pulse 89 03/09/17 15:00 Resp 20 03/09/17 15:00 BP 127/63 03/09/17 15:00 Pulse Ox 100 03/09/17 15:00 - Labs Result Diagrams: 03/09/17 06:31 03/09/17 06:31 Labs: Laboratory Results - last 24 hr 03/08/17 03/09/17 03/09/17 21:30 06:31 06:31 WBC 22.9 H RBC 3.03 L Hgb 9.2 L Hct 28.9 L MCV 95.2 MCH 30.4 MCHC 31.9 L RDW 23.6 H Plt Count 23 L* MPV 7.8 Neut % (Auto) 68.8 Lymph % (Auto) 10.6 L [place] % (Auto) 19.9 H Eos % (Auto) 0.2 Baso % (Auto) 0.5 Neut # 15.8 H Lymph # 2.4 [place] # 4.6 H Eos # 0.0 Baso # 0.1 Sodium 143 Potassium 3.2 L Chloride 108 H Carbon Dioxide 23 Anion Gap 15 BUN 20 H Creatinine 1.0 Est GFR ( Amer) > 60 Est GFR (Non-Af Amer) 54 POC Glucose (mg/dL) 98 Random Glucose 39 L* D Calcium 7.5 L Magnesium 1.8 Total Bilirubin 1.0 AST 27 ALT 33 Alkaline Phosphatase 297 H Total Protein 7.1 Albumin 2.1 L Globulin 5.0 H Albumin/Globulin Ratio 0.4 L 03/09/17 03/09/17 03/09/17 07:17 07:32 11:25 WBC RBC Hgb Hct MCV MCH MCHC RDW Plt Count MPV Neut % (Auto) Lymph % (Auto) [place] % (Auto) Eos % (Auto) Baso % (Auto) Neut # Lymph # [place] # Eos # Baso # Sodium Potassium Chloride Carbon Dioxide Anion Gap BUN Creatinine Est GFR ( Amer) Est GFR (Non-Af Amer) POC Glucose (mg/dL) 52 L 157 H 133 H Random Glucose Calcium Magnesium Total Bilirubin AST ALT Alkaline Phosphatase Total Protein Albumin Globulin Albumin/Globulin Ratio 03/09/17 16:01 WBC RBC Hgb Hct MCV MCH MCHC RDW Plt Count MPV Neut % (Auto) Lymph % (Auto) [place] % (Auto) Eos % (Auto) Baso % (Auto) Neut # Lymph # [place] # Eos # Baso # Sodium Potassium Chloride Carbon Dioxide Anion Gap BUN Creatinine Est GFR ( Amer) Est GFR (Non-Af Amer) POC Glucose (mg/dL) 172 H Random Glucose Calcium Magnesium Total Bilirubin AST ALT Alkaline Phosphatase Total Protein Albumin Globulin Albumin/Globulin Ratio Assessment & Plan - Assessment and Plan (Free Text) Assessment: A/Chronic Lymphedema with Xerosis Cutis b/l Plan: P/Apply Lac Hydrin Lotion 12 % bid . Heel/Foot protectors b/l .
[2017-03-09] MEDS: (Lantus) Insulin Glargine, Recombinant SC SCH (21:44)
--- NOTE | 2017-03-09 22:56 | CP.PCM.PN ---
Subjective - Date & Time of Evaluation Date of Evaluation: 03/09/17 Time of Evaluation: 13:30 - Subjective Subjective: Patient complains of fatigue. Labs reveal a Hgb 9.2 and platlets of 23, 000. She will need removal of portocath,since it could be the source of infection. Dr Bateman on consult. Objective - Vital Signs/Intake and Output Vital Signs (last 24 hours): Temp Pulse Resp BP Pulse Ox 98.2 F 89 20 127/63 100 03/09/17 15:00 03/09/17 15:00 03/09/17 15:00 03/09/17 15:00 03/09/17 15:00 Intake and Output: 03/09/17 03/10/17 18:59 06:59 Intake Total 320 Balance 320 - Medications Medications: Current Medications Acetaminophen/Codeine Phosphate (Tylenol/Codeine 300 Mg/30 Mg) 1 ea PO Q4 PRN PRN Reason: Pain, moderate (4-7) Last Admin: 03/06/17 08:25 Dose: 1 ea Albuterol Sulfate (Albuterol 0.042% Inhal Tricia (1.25mg/3ml) Ud) 1.25 mg INH RTID [facility] Last Admin: 03/09/17 19:36 Dose: 1.25 mg Calcium/Vitamin D (Oscal-D 250 Mg-125 Units Tab) 1 tab PO DAILY [facility] Last Admin: 03/09/17 09:56 Dose: 1 tab Ferrous Sulfate (Feosol) 325 mg PO DAILY [facility] Last Admin: 03/09/17 09:58 Dose: 325 mg Folic Acid (Folic Acid) 1 mg PO DAILY [facility] Last Admin: 03/09/17 09:57 Dose: 1 mg Furosemide (Lasix) 40 mg PO DAILY [facility] Last Admin: 03/09/17 09:57 Dose: 40 mg Metronidazole (Flagyl) 500 mg in 100 mls @ 100 mls/hr IVPB Q8H [facility] Last Admin: 03/09/17 17:30 Dose: 100 mls/hr Tigecycline 50 mg/ Dextrose 100 mls @ 100 mls/hr IVPB Q12H [facility] Last Admin: 03/09/17 11:33 Dose: 100 mls/hr Gentamicin Sulfate 80 mg/ (Sodium Chloride) 102 mls @ 100 mls/hr IVPB Q24H [facility] Last Admin: 03/09/17 19:20 Dose: 100 mls/hr Insulin Glargine (Lantus) 8 unit SC HS [facility] Last Admin: 03/09/17 21:44 Dose: Not Given Insulin Human Regular (Novolin R) 0 unit SC ACHS [facility] PRN Reason: Protocol Last Admin: 03/09/17 22:44 Dose: Not Given Lactic Acid (Lac-Hydrin 12% Lotion (225 G)) 0 gm EXT BID [facility] Last Admin: 03/09/17 17:31 Dose: 1 applic Lactic Acid (Lac-Hydrin 12% Lotion (225 G)) 0 gm EXT DAILY [facility] Last Admin: 03/09/17 22:44 Dose: Not Given Loperamide HCl (Imodium) 2 mg PO Q4H PRN PRN Reason: Diarrhea Lorazepam (Ativan) 0.5 mg PO HS PRN PRN Reason: Anxiety Last Admin: 03/09/17 02:32 Dose: 0.5 mg Multivitamins (Hexavitamin) 1 tab PO DAILY [facility] Last Admin: 03/09/17 09:58 Dose: 1 tab Neomycin/Polymyxin/Gramicidin (Gramicidin/Neomycin/Polymyxin B) 0 ml OP DAILY [facility] Stop: 03/10/17 23:59 Last Admin: 03/09/17 09:56 Dose: 1 applic Potassium Chloride (K-Dur 20 Meq Er Tab) 20 meq PO DAILY [facility] Last Admin: 03/09/17 09:57 Dose: 20 meq - Labs Labs: 03/09/17 06:31 03/09/17 06:31 - Constitutional Appears: Chronically Ill - Head Exam Head Exam: NORMOCEPHALIC - Eye Exam Eye Exam: Normal appearance Pupil Exam: NORMAL ACCOMODATION - ENT Exam ENT Exam: Normal Exam - Neck Exam Neck Exam: Normal Inspection - Respiratory Exam Respiratory Exam: Decreased Breath Sounds - Cardiovascular Exam Cardiovascular Exam: REGULAR RHYTHM - GI/Abdominal Exam GI & Abdominal Exam: Hyperactive Bowel Sounds - Rectal Exam Rectal Exam: Deferred - Exam External exam: NORMAL EXTERNAL EXAM - Extremities Exam Extremities Exam: Tenderness - Back Exam Back Exam: NORMAL INSPECTION - Neurological Exam Neurological Exam: Oriented x3 - Psychiatric Exam Psychiatric exam: Depressed - Skin Skin Exam: Dry Assessment and Plan (1) Myelodysplasia (myelodysplastic syndrome) Status: Acute (2) Severe anemia Status: Acute (3) Degenerative disc disease at L5-S1 level Status: Acute (4) Osteoarthritis Status: Acute (5) Thrombocytopenia Status: Acute
[2017-03-10] MEDS: Tigecycline 50 MG in Dextrose 5% In Water 100 ML IVPB SCH ×2 (00:24→12:42)
[2017-03-10] MEDS: Acetaminophen-Codeine 300/30 mg Tab PO PRN (00:51)
[2017-03-10] MEDS: metroNIDAZOLE IV 500 mg/100 ml 500 MG/100 ML BAG IVPB SCH ×3 (00:53→18:19)
[2017-03-10] MEDS: Albuterol 0.042% Inhal Sol (1.25 mg/3 mL) UD INH SCH ×2 (07:33→13:32)
[2017-03-10 07:44] LABS: CHLORIDE 109 mmol/L (98-107); POTASSIUM 3.8 mmol/L (3.6-5.2); SODIUM 141 mmol/L (132-148)
[2017-03-10 07:45] LABS: HEMATOCRIT 27.2 % (34.0-47.0); MEAN CORPUSCULAR HGB CONC 32.1 g/dL (33.0-37.0)
[2017-03-10 07:47] LABS: CARBON DIOXIDE 22 mmol/L (22-30); GFR AFRICAN-AMERICAN > 60
[2017-03-10 07:48] LABS: BLOOD UREA NITROGEN 18 mg/dL (7-17); CALCIUM 7.4 mg/dl (8.6-10.4); GLUCOSE,RANDOM 82 mg/dL (65-105)
[2017-03-10 07:54] LABS: BASO % 0.2 % (0.0-2.0); LYMPH # 2.4 K/uL (1.0-4.3); LYMPH % 13.5 % (20.0-40.0); MEAN CELL VOLUME 95.7 fL (81.0-99.0); MEAN CORPUSCULAR HEMOGLOBIN 30.7 pg (27.0-31.0); MEAN PLATELET VOLUME 8.1 fL (7.2-11.7); MONO # 4.1 K/uL (0.0-0.8); MONO % 22.9 % (0.0-10.0); RED CELL DISTRIBUTION WIDTH 23.4 % (11.5-14.5); WHITE BLOOD COUNT 17.7 K/uL (4.8-10.8)
[2017-03-10 08:01] LABS: PLATELET COUNT 18 K/uL (130-400)
--- NOTE | 2017-03-10 08:14 | CP.PCM.PN ---
Subjective - Date & Time of Evaluation Date of Evaluation: 03/10/17 Time of Evaluation: 08:14 - Subjective Subjective: Vasc Sx: Dr Bateman Pt S&E. GUSTAVOO. Remains fatigued, but denying fever or chills, nausea or vomiting. Pt understands port will likely need to be removed, but PLTs need to be increased before that can occur. Objective - Vital Signs/Intake and Output Vital Signs (last 24 hours): Temp Pulse Resp BP Pulse Ox 98.1 F 80 20 146/68 98 03/10/17 07:39 03/10/17 07:39 03/10/17 07:39 03/10/17 07:39 03/10/17 07:39 Intake and Output: 03/10/17 03/10/17 06:59 18:59 Intake Total 420 Balance 420 - Medications Medications: Current Medications Acetaminophen/Codeine Phosphate (Tylenol/Codeine 300 Mg/30 Mg) 1 ea PO Q4 PRN PRN Reason: Pain, moderate (4-7) Last Admin: 03/10/17 00:51 Dose: 1 ea Albuterol Sulfate (Albuterol 0.042% Inhal Tricia (1.25mg/3ml) Ud) 1.25 mg INH RTID [facility] Last Admin: 03/10/17 07:33 Dose: 1.25 mg Calcium/Vitamin D (Oscal-D 250 Mg-125 Units Tab) 1 tab PO DAILY [facility] Last Admin: 03/09/17 09:56 Dose: 1 tab Ferrous Sulfate (Feosol) 325 mg PO DAILY [facility] Last Admin: 03/09/17 09:58 Dose: 325 mg Folic Acid (Folic Acid) 1 mg PO DAILY [facility] Last Admin: 03/09/17 09:57 Dose: 1 mg Furosemide (Lasix) 40 mg PO DAILY [facility] Last Admin: 03/09/17 09:57 Dose: 40 mg Metronidazole (Flagyl) 500 mg in 100 mls @ 100 mls/hr IVPB Q8H [facility] Last Admin: 03/10/17 00:53 Dose: 100 mls/hr Tigecycline 50 mg/ Dextrose 100 mls @ 100 mls/hr IVPB Q12H [facility] Last Admin: 03/10/17 00:24 Dose: 100 mls/hr Gentamicin Sulfate 80 mg/ (Sodium Chloride) 102 mls @ 100 mls/hr IVPB Q24H [facility] Last Admin: 03/09/17 19:20 Dose: 100 mls/hr Insulin Glargine (Lantus) 8 unit SC HS [facility] Last Admin: 03/09/17 21:44 Dose: Not Given Insulin Human Regular (Novolin R) 0 unit SC ACHS [facility] PRN Reason: Protocol Last Admin: 03/09/17 22:44 Dose: Not Given Lactic Acid (Lac-Hydrin 12% Lotion (225 G)) 0 gm EXT BID [facility] Last Admin: 03/09/17 17:31 Dose: 1 applic Lactic Acid (Lac-Hydrin 12% Lotion (225 G)) 0 gm EXT DAILY [facility] Last Admin: 03/09/17 22:44 Dose: Not Given Loperamide HCl (Imodium) 2 mg PO Q4H PRN PRN Reason: Diarrhea Lorazepam (Ativan) 0.5 mg PO HS PRN PRN Reason: Anxiety Last Admin: 03/10/17 03:45 Dose: 0.5 mg Multivitamins (Hexavitamin) 1 tab PO DAILY [facility] Last Admin: 03/09/17 09:58 Dose: 1 tab Neomycin/Polymyxin/Gramicidin (Gramicidin/Neomycin/Polymyxin B) 0 ml OP DAILY [facility] Stop: 03/10/17 23:59 Last Admin: 03/09/17 09:56 Dose: 1 applic Potassium Chloride (K-Dur 20 Meq Er Tab) 20 meq PO DAILY [facility] Last Admin: 03/09/17 09:57 Dose: 20 meq - Labs Labs: 03/10/17 07:59 03/10/17 07:14 - Constitutional Appears: Non-toxic, No Acute Distress - Respiratory Exam Respiratory Exam: NORMAL BREATHING PATTERN. absent: Accessory Muscle Use, Respiratory Distress - Cardiovascular Exam Cardiovascular Exam: absent: Tachycardia - GI/Abdominal Exam GI & Abdominal Exam: Soft. absent: Distended, Tenderness - Neurological Exam Neurological Exam: Alert, Awake, Oriented x3 - Psychiatric Exam Psychiatric exam: Normal Affect, Normal Mood - Skin Skin Exam: Normal Color, Warm Assessment and Plan - Assessment and Plan (Free Text) Assessment: 76F with bacteremia; ? of port as the source Plan: will tentatively plan for port removal on sunday for CLABSI platelets will need to be > 50K before procedure however, recommend ruling out other sources of bacteremia including but not limited to urine, lungs, or LE wounds prior to procedure typically CLABSI requires blood cultures from two separate locations - and both blood cultures were drawn off of central line will d/w Dr Fransico Pearson, PGY3
[2017-03-10] MEDS: (Novolin R) Insulin Human Regular 100 units/ml vial SC SCH ×4 (08:47→22:03)
--- NOTE | 2017-03-10 09:48 | RAD ---
HISTORY: CHF COMPARISON: No prior. FINDINGS: LUNGS: The right MediPort terminates at the cavoatrial junction. There is interval worsening of pulmonary venous congestion and development of multifocal airspace disease in the lungs, worse in the right upper lobe and left lower lobe. PLEURA: There are presumable bilateral pleural effusions, worse on the left, no pneumothorax apparent. CARDIOVASCULAR: Normal. OSSEOUS STRUCTURES: No significant abnormalities. VISUALIZED UPPER ABDOMEN: Normal. OTHER FINDINGS: None. IMPRESSION: Worsening congestive heart failure with interval development of presumable pulmonary edema, worse in the right upper lobe and left lower lobe.
[2017-03-10 09:56] LABS: NEUTROPHIL 72 % (50-75); TOTAL CELLS COUNTED 100
[2017-03-10 09:58] LABS: SPHEROCYTES SLIGHT
[2017-03-10] MEDS: Multiple Vitamins Tab PO SCH (11:38)
[2017-03-10] MEDS: Potassium Chloride 20 mEq ER Tab PO SCH (11:38)
[2017-03-10] MEDS: Calcium-Vit D 250 mg-125 Units Tab UD PO SCH (11:38)
[2017-03-10] MEDS: Neomycin-Polymyxin-Gramicidin Ophth Soln (10 ml) OP SCH (11:41)
[2017-03-10] MEDS: Ammonium Lactate 12% Lotion (225 g) EXT SCH ×3 (11:42→18:26)
--- NOTE | 2017-03-10 20:28 | CP.PCM.PN ---
Subjective - Date & Time of Evaluation Date of Evaluation: 03/10/17 Time of Evaluation: 15:45 - Subjective Subjective: Confused and depressed. Hgb 8.7, platlets 18,000. Patient will need port to be removed. Will ask Dr Fitzgerald to order platlets. Objective - Vital Signs/Intake and Output Vital Signs (last 24 hours): Temp Pulse Resp BP Pulse Ox 97.4 F L 81 20 146/68 100 03/10/17 15:00 03/10/17 15:00 03/10/17 15:00 03/10/17 15:00 03/10/17 15:00 Intake and Output: 03/10/17 03/11/17 18:59 06:59 Intake Total 500 Balance 500 - Medications Medications: Current Medications Acetaminophen/Codeine Phosphate (Tylenol/Codeine 300 Mg/30 Mg) 1 ea PO Q4 PRN PRN Reason: Pain, moderate (4-7) Last Admin: 03/10/17 00:51 Dose: 1 ea Calcium/Vitamin D (Oscal-D 250 Mg-125 Units Tab) 1 tab PO DAILY [facility] Last Admin: 03/10/17 11:38 Dose: 1 tab Ferrous Sulfate (Feosol) 325 mg PO DAILY [facility] Last Admin: 03/10/17 11:40 Dose: 325 mg Folic Acid (Folic Acid) 1 mg PO DAILY [facility] Last Admin: 03/10/17 11:40 Dose: 1 mg Furosemide (Lasix) 40 mg PO DAILY [facility] Last Admin: 03/10/17 11:40 Dose: 40 mg Metronidazole (Flagyl) 500 mg in 100 mls @ 100 mls/hr IVPB Q8H [facility] Last Admin: 03/10/17 18:19 Dose: 100 mls/hr Tigecycline 50 mg/ Dextrose 100 mls @ 100 mls/hr IVPB Q12H [facility] Last Admin: 03/10/17 12:42 Dose: 100 mls/hr Gentamicin Sulfate 80 mg/ (Sodium Chloride) 102 mls @ 100 mls/hr IVPB Q24H [facility] Last Admin: 03/10/17 20:13 Dose: Not Given Insulin Glargine (Lantus) 8 unit SC HS [facility] Last Admin: 03/09/17 21:44 Dose: Not Given Insulin Human Regular (Novolin R) 0 unit SC ACHS [facility] PRN Reason: Protocol Last Admin: 03/10/17 17:10 Dose: Not Given Lactic Acid (Lac-Hydrin 12% Lotion (225 G)) 0 gm EXT BID [facility] Last Admin: 03/10/17 18:26 Dose: 1 applic Lactic Acid (Lac-Hydrin 12% Lotion (225 G)) 0 gm EXT DAILY [facility] Last Admin: 03/10/17 11:42 Dose: 1 applic Loperamide HCl (Imodium) 2 mg PO Q4H PRN PRN Reason: Diarrhea Lorazepam (Ativan) 0.5 mg PO HS PRN PRN Reason: Anxiety Last Admin: 03/10/17 03:45 Dose: 0.5 mg Multivitamins (Hexavitamin) 1 tab PO DAILY [facility] Last Admin: 03/10/17 11:38 Dose: 1 tab Neomycin/Polymyxin/Gramicidin (Gramicidin/Neomycin/Polymyxin B) 0 ml OP DAILY [facility] Stop: 03/10/17 23:59 Last Admin: 03/10/17 11:41 Dose: 1 applic Potassium Chloride (K-Dur 20 Meq Er Tab) 20 meq PO DAILY [facility] Last Admin: 03/10/17 11:38 Dose: 20 meq - Labs Labs: 03/10/17 07:59 03/10/17 07:14 - Constitutional Appears: Chronically Ill - Head Exam Head Exam: NORMOCEPHALIC - Eye Exam Eye Exam: Normal appearance Pupil Exam: NORMAL ACCOMODATION - ENT Exam ENT Exam: Mucous Membranes Dry - Neck Exam Neck Exam: Normal Inspection - Respiratory Exam Respiratory Exam: Decreased Breath Sounds - Cardiovascular Exam Cardiovascular Exam: REGULAR RHYTHM - GI/Abdominal Exam GI & Abdominal Exam: Normal Bowel Sounds - Rectal Exam Rectal Exam: Deferred - Exam External exam: NORMAL EXTERNAL EXAM - Extremities Exam Extremities Exam: Tenderness - Back Exam Back Exam: paraspinal tenderness - Neurological Exam Neurological Exam: Awake - Psychiatric Exam Psychiatric exam: Depressed - Skin Skin Exam: Dry Assessment and Plan (1) Myelodysplasia (myelodysplastic syndrome) Status: Acute (2) Severe anemia Status: Acute (3) Degenerative disc disease at L5-S1 level Status: Acute (4) Osteoarthritis Status: Acute (5) Thrombocytopenia Status: Acute
[2017-03-10] MEDS: (Lantus) Insulin Glargine, Recombinant SC SCH (22:02)
[2017-03-11] MEDS: Tigecycline 50 MG in Dextrose 5% In Water 100 ML IVPB SCH ×3 (00:07→23:44)
[2017-03-11] MEDS: Acetaminophen-Codeine 300/30 mg Tab PO PRN ×2 (02:05→17:41)
[2017-03-11] MEDS: metroNIDAZOLE IV 500 mg/100 ml 500 MG/100 ML BAG IVPB SCH ×3 (02:05→17:32)
[2017-03-11] MEDS: (Novolin R) Insulin Human Regular 100 units/ml vial SC SCH ×4 (07:42→21:32)
--- NOTE | 2017-03-11 08:46 | CP.PCM.PN ---
Subjective - Date & Time of Evaluation Date of Evaluation: 03/11/17 Time of Evaluation: 07:05 - Subjective Subjective: Vascular Surgery Note for Dr. Bateman Patient seen and examined at bedside. No acute event overnight. Patient states she is feeling much better today. She reports to tolerating diet and having Bms regularly. She denies fever/chills, chest pain, SOB, palpitations, abdominal pain, nausea/vomiting, diarrhea, and constipation. Objective - Vital Signs/Intake and Output Vital Signs (last 24 hours): Temp Pulse Resp BP Pulse Ox 98.9 F 101 H 20 127/79 98 03/11/17 07:48 03/11/17 07:48 03/11/17 07:48 03/11/17 07:48 03/11/17 07:48 Intake and Output: 03/11/17 03/11/17 06:59 18:59 Intake Total 300 Balance 300 - Medications Medications: Current Medications Acetaminophen/Codeine Phosphate (Tylenol/Codeine 300 Mg/30 Mg) 1 ea PO Q4 PRN PRN Reason: Pain, moderate (4-7) Last Admin: 03/11/17 02:05 Dose: 1 ea Calcium/Vitamin D (Oscal-D 250 Mg-125 Units Tab) 1 tab PO DAILY [facility] Last Admin: 03/10/17 11:38 Dose: 1 tab Ferrous Sulfate (Feosol) 325 mg PO DAILY [facility] Last Admin: 03/10/17 11:40 Dose: 325 mg Folic Acid (Folic Acid) 1 mg PO DAILY [facility] Last Admin: 03/10/17 11:40 Dose: 1 mg Furosemide (Lasix) 40 mg PO DAILY [facility] Last Admin: 03/10/17 11:40 Dose: 40 mg Metronidazole (Flagyl) 500 mg in 100 mls @ 100 mls/hr IVPB Q8H [facility] Last Admin: 03/11/17 02:05 Dose: 100 mls/hr Tigecycline 50 mg/ Dextrose 100 mls @ 100 mls/hr IVPB Q12H [facility] Last Admin: 03/11/17 00:07 Dose: 100 mls/hr Gentamicin Sulfate 80 mg/ (Sodium Chloride) 102 mls @ 100 mls/hr IVPB Q24H [facility] Last Admin: 03/10/17 20:13 Dose: Not Given Insulin Glargine (Lantus) 8 unit SC HS [facility] Last Admin: 03/10/17 22:02 Dose: Not Given Insulin Human Regular (Novolin R) 0 unit SC ACHS [facility] PRN Reason: Protocol Last Admin: 03/11/17 07:42 Dose: Not Given Lactic Acid (Lac-Hydrin 12% Lotion (225 G)) 0 gm EXT BID [facility] Last Admin: 03/10/17 18:26 Dose: 1 applic Lactic Acid (Lac-Hydrin 12% Lotion (225 G)) 0 gm EXT DAILY [facility] Last Admin: 03/10/17 11:42 Dose: 1 applic Loperamide HCl (Imodium) 2 mg PO Q4H PRN PRN Reason: Diarrhea Lorazepam (Ativan) 0.5 mg PO HS PRN PRN Reason: Anxiety Last Admin: 03/10/17 03:45 Dose: 0.5 mg Multivitamins (Hexavitamin) 1 tab PO DAILY [facility] Last Admin: 03/10/17 11:38 Dose: 1 tab Potassium Chloride (K-Dur 20 Meq Er Tab) 20 meq PO DAILY [facility] Last Admin: 03/10/17 11:38 Dose: 20 meq - Labs Labs: 03/10/17 07:59 03/10/17 07:14 - Constitutional Appears: No Acute Distress - Eye Exam Eye Exam: Normal appearance - Respiratory Exam Respiratory Exam: NORMAL BREATHING PATTERN Additional comments: port in right chest - Cardiovascular Exam Cardiovascular Exam: Tachycardia - GI/Abdominal Exam GI & Abdominal Exam: Soft. absent: Tenderness - Neurological Exam Neurological Exam: Alert, Awake - Psychiatric Exam Psychiatric exam: Normal Affect, Normal Mood - Skin Skin Exam: Dry, Warm Assessment and Plan - Assessment and Plan (Free Text) Plan: 76F with klebsiella bacteremia, possible CLABSI -Continue IV antibiotics -Will need platelets > 50K for removal if port is presumed source -Management as per primary -Willl Discuss with Dr. Fransico Blue PGY1
[2017-03-11] MEDS: Calcium-Vit D 250 mg-125 Units Tab UD PO SCH (11:04)
[2017-03-11] MEDS: Potassium Chloride 20 mEq ER Tab PO SCH (11:04)
[2017-03-11] MEDS: Multiple Vitamins Tab PO SCH (11:07)
[2017-03-11] MEDS: Ammonium Lactate 12% Lotion (225 g) EXT SCH ×3 (11:10→17:43)
[2017-03-11 12:23] LABS: BASO # 0.1 K/uL (0.0-0.2); BASO % 0.4 % (0.0-2.0); EOS % 0.1 % (0.0-4.0); HEMATOCRIT 27.2 % (34.0-47.0); LYMPH # 2.4 K/uL (1.0-4.3); LYMPH % 11.9 % (20.0-40.0); MEAN CELL VOLUME 96.8 fL (81.0-99.0); MEAN CORPUSCULAR HEMOGLOBIN 30.6 pg (27.0-31.0); MEAN CORPUSCULAR HGB CONC 31.6 g/dL (33.0-37.0); MEAN PLATELET VOLUME 11.1 fL (7.2-11.7); MONO # 4.9 K/uL (0.0-0.8); MONO % 24.2 % (0.0-10.0); NRBC % 0.4 % (0.0-2.0); RED CELL DISTRIBUTION WIDTH 22.8 % (11.5-14.5); WHITE BLOOD COUNT 20.4 K/uL (4.8-10.8)
[2017-03-11 12:25] LABS: PLATELET COUNT 17 K/uL (130-400)
[2017-03-11 12:30] LABS: CHLORIDE 108 mmol/L (98-107)
[2017-03-11 12:31] LABS: POTASSIUM 3.7 mmol/L (3.6-5.2); SODIUM 138 mmol/L (132-148)
[2017-03-11 12:33] LABS: BILIRUBIN,TOTAL 1.3 mg/dL (0.2-1.3); CARBON DIOXIDE 22 mmol/L (22-30); GFR AFRICAN-AMERICAN > 60
[2017-03-11 12:34] LABS: ALB/GLOB RATIO 0.5 (1.0-2.1); ALKALINE PHOSPHATASE 419 U/L (38-126); ALT/SGPT 32 U/L (9-52); AST/SGOT 28 U/L (14-36); BLOOD UREA NITROGEN 17 mg/dL (7-17); CALCIUM 7.3 mg/dl (8.6-10.4); GLUCOSE,RANDOM 129 mg/dL (65-105); TOTAL PROTEIN 5.9 g/dL (6.3-8.3)
[2017-03-11 12:45] LABS: NEUTROPHIL 66 % (50-75); TOTAL CELLS COUNTED 100
[2017-03-11 12:47] LABS: SPHEROCYTES SLIGHT
--- NOTE | 2017-03-11 15:48 | CP.PCM.PN ---
Subjective - Date & Time of Evaluation Date of Evaluation: 03/11/17 Time of Evaluation: 09:00 - Subjective Subjective: admitted with sepsis and bacteremia has MDRO- Klebs in blood IV rx in progress await Surgical team for removal of device- PLTS still low - may need transfusion Dr Silva on board for pneumonia Objective - Vital Signs/Intake and Output Vital Signs (last 24 hours): Temp Pulse Resp BP Pulse Ox 98.9 F 101 H 20 137/70 98 03/11/17 07:48 03/11/17 07:48 03/11/17 07:48 03/11/17 11:04 03/11/17 07:48 Intake and Output: 03/11/17 03/11/17 06:59 18:59 Intake Total 300 Balance 300 - Medications Medications: Current Medications Acetaminophen/Codeine Phosphate (Tylenol/Codeine 300 Mg/30 Mg) 1 ea PO Q4 PRN PRN Reason: Pain, moderate (4-7) Last Admin: 03/11/17 02:05 Dose: 1 ea Calcium/Vitamin D (Oscal-D 250 Mg-125 Units Tab) 1 tab PO DAILY [facility] Last Admin: 03/11/17 11:04 Dose: 1 tab Ferrous Sulfate (Feosol) 325 mg PO DAILY [facility] Last Admin: 03/11/17 11:04 Dose: 325 mg Folic Acid (Folic Acid) 1 mg PO DAILY [facility] Last Admin: 03/11/17 11:04 Dose: 1 mg Furosemide (Lasix) 40 mg PO DAILY [facility] Last Admin: 03/11/17 11:04 Dose: 40 mg Metronidazole (Flagyl) 500 mg in 100 mls @ 100 mls/hr IVPB Q8H [facility] Last Admin: 03/11/17 11:03 Dose: 100 mls/hr Tigecycline 50 mg/ Dextrose 100 mls @ 100 mls/hr IVPB Q12H [facility] Last Admin: 03/11/17 11:11 Dose: 100 mls/hr Gentamicin Sulfate 80 mg/ (Sodium Chloride) 102 mls @ 100 mls/hr IVPB Q24H [facility] Last Admin: 03/10/17 20:13 Dose: Not Given Insulin Glargine (Lantus) 8 unit SC HS [facility] Last Admin: 03/10/17 22:02 Dose: Not Given Insulin Human Regular (Novolin R) 0 unit SC ACHS [facility] PRN Reason: Protocol Last Admin: 03/11/17 11:12 Dose: Not Given Lactic Acid (Lac-Hydrin 12% Lotion (225 G)) 0 gm EXT BID [facility] Last Admin: 03/11/17 11:10 Dose: Not Given Loperamide HCl (Imodium) 2 mg PO Q4H PRN PRN Reason: Diarrhea Lorazepam (Ativan) 0.5 mg PO HS PRN PRN Reason: Anxiety Last Admin: 03/10/17 03:45 Dose: 0.5 mg Multivitamins (Hexavitamin) 1 tab PO DAILY [facility] Last Admin: 03/11/17 11:07 Dose: 1 tab Potassium Chloride (K-Dur 20 Meq Er Tab) 20 meq PO DAILY [facility] Last Admin: 03/11/17 11:04 Dose: 20 meq - Labs Labs: 03/11/17 12:11 03/11/17 12:11 - Constitutional Appears: Non-toxic, Confused, Cachectic, Chronically Ill - Head Exam Head Exam: ATRAUMATIC, NORMAL INSPECTION, NORMOCEPHALIC - Eye Exam Eye Exam: PERRL. absent: Scleral icterus - ENT Exam ENT Exam: Mucous Membranes Dry - Neck Exam Neck Exam: absent: Lymphadenopathy - Respiratory Exam Respiratory Exam: Decreased Breath Sounds, Clear to Ausculation Bilateral - Cardiovascular Exam Cardiovascular Exam: REGULAR RHYTHM, +S1, +S2 - GI/Abdominal Exam GI & Abdominal Exam: Distended, Soft Assessment and Plan (1) Myelodysplasia (myelodysplastic syndrome) Status: Acute (2) Severe anemia Status: Acute (3) Acute on chronic diastolic (congestive) heart failure Status: Acute (4) Anemia Status: Acute (5) Degenerative disc disease at L5-S1 level Status: Acute (6) Dehydration Status: Acute (7) Diabetes mellitus type 2 in obese Status: Acute (8) Carbapenem-resistant bacterial infection Status: Acute (9) Carbapenem-resistant bacterial infection Status: Acute
[2017-03-11] MEDS: (Lantus) Insulin Glargine, Recombinant SC SCH (21:32)
--- NOTE | 2017-03-11 22:24 | CP.PCM.PN ---
Subjective - Date & Time of Evaluation Date of Evaluation: 03/11/17 Time of Evaluation: 16:55 - Subjective Subjective: Patient somewhat confused. She complains of difficulty swollowing. Platlets 17,[address] Prabhakar following the patient closely for sepsis. Objective - Vital Signs/Intake and Output Vital Signs (last 24 hours): Temp Pulse Resp BP Pulse Ox 97.8 F 94 H 22 129/77 98 03/11/17 15:00 03/11/17 15:00 03/11/17 15:00 03/11/17 15:00 03/11/17 15:00 Intake and Output: 03/11/17 03/12/17 18:59 06:59 Intake Total 500 350 Balance 500 350 - Medications Medications: Current Medications Acetaminophen/Codeine Phosphate (Tylenol/Codeine 300 Mg/30 Mg) 1 ea PO Q4 PRN PRN Reason: Pain, moderate (4-7) Last Admin: 03/11/17 17:41 Dose: 1 ea Calcium/Vitamin D (Oscal-D 250 Mg-125 Units Tab) 1 tab PO DAILY [facility] Last Admin: 03/11/17 11:04 Dose: 1 tab Ferrous Sulfate (Feosol) 325 mg PO DAILY [facility] Last Admin: 03/11/17 11:04 Dose: 325 mg Folic Acid (Folic Acid) 1 mg PO DAILY [facility] Last Admin: 03/11/17 11:04 Dose: 1 mg Furosemide (Lasix) 40 mg PO DAILY [facility] Last Admin: 03/11/17 11:04 Dose: 40 mg Metronidazole (Flagyl) 500 mg in 100 mls @ 100 mls/hr IVPB Q8H [facility] Last Admin: 03/11/17 17:32 Dose: 100 mls/hr Tigecycline 50 mg/ Dextrose 100 mls @ 100 mls/hr IVPB Q12H [facility] Last Admin: 03/11/17 11:11 Dose: 100 mls/hr Gentamicin Sulfate 80 mg/ (Sodium Chloride) 102 mls @ 100 mls/hr IVPB Q24H [facility] Last Admin: 03/11/17 19:17 Dose: 100 mls/hr Insulin Glargine (Lantus) 8 unit SC HS [facility] Last Admin: 03/11/17 21:32 Dose: Not Given Insulin Human Regular (Novolin R) 0 unit SC ACHS [facility] PRN Reason: Protocol Last Admin: 03/11/17 21:32 Dose: Not Given Lactic Acid (Lac-Hydrin 12% Lotion (225 G)) 0 gm EXT BID [facility] Last Admin: 03/11/17 17:43 Dose: 1 applic Loperamide HCl (Imodium) 2 mg PO Q4H PRN PRN Reason: Diarrhea Lorazepam (Ativan) 0.5 mg PO HS PRN PRN Reason: Anxiety Last Admin: 03/10/17 03:45 Dose: 0.5 mg Multivitamins (Hexavitamin) 1 tab PO DAILY [facility] Last Admin: 03/11/17 11:07 Dose: 1 tab Potassium Chloride (K-Dur 20 Meq Er Tab) 20 meq PO DAILY [facility] Last Admin: 03/11/17 11:04 Dose: 20 meq - Labs Labs: 03/11/17 12:11 03/11/17 12:11 - Constitutional Appears: Chronically Ill - Head Exam Head Exam: NORMOCEPHALIC - Eye Exam Eye Exam: Normal appearance Pupil Exam: NORMAL ACCOMODATION - ENT Exam ENT Exam: Normal Exam - Neck Exam Neck Exam: Normal Inspection - Respiratory Exam Respiratory Exam: Decreased Breath Sounds - Cardiovascular Exam Cardiovascular Exam: REGULAR RHYTHM - GI/Abdominal Exam GI & Abdominal Exam: Hyperactive Bowel Sounds - Rectal Exam Rectal Exam: Deferred - Exam External exam: NORMAL EXTERNAL EXAM - Extremities Exam Extremities Exam: Tenderness - Back Exam Back Exam: NORMAL INSPECTION - Neurological Exam Neurological Exam: Altered - Psychiatric Exam Psychiatric exam: Depressed Assessment and Plan (1) Myelodysplasia (myelodysplastic syndrome) Status: Acute (2) Severe anemia Status: Acute (3) Degenerative disc disease at L5-S1 level Status: Acute (4) Osteoarthritis Status: Acute (5) Thrombocytopenia Status: Acute (6) Sepsis Status: Acute
[2017-03-12] MEDS: metroNIDAZOLE IV 500 mg/100 ml 500 MG/100 ML BAG IVPB SCH ×4 (01:08→17:21)
[2017-03-12] MEDS: Acetaminophen-Codeine 300/30 mg Tab PO PRN (03:39)
--- NOTE | 2017-03-12 07:05 | CP.PCM.CON ---
History of Present Illness - History of Present Illness History of Present Illness: CONSULT DICTATED PTOSIS EXTERNAL OPTHALMOPLEGIA EPISODIC DIPLOPIA DYSPHAGIA IMPENIDING RESPIRATORY DYSFUNCTION GEN WEAKNESS PROXIMAL AND DISTALLY POSSIBLE DIAGNOSIS MYASTHENIA GRAVIS SHE IS ON AMINOGYCSIDES PULMONARY CONSULT I WILL START EMPHERICALLY ON MESTINON Past Patient History - Infectious Disease Hx of Infectious Diseases: None - Tetanus Immunizations Tetanus Immunization: Unknown, Up to Date - Past Medical History & Family History Past Medical History?: Yes - Past Social History Smoking Status: Never Smoked Chewing Tobacco Use: No Cigar Use: No Alcohol: None Drugs: Denies Home Situation {Lives}: With Family - CARDIAC Hx Congestive Heart Failure: Yes Hx Hypertension: Yes - PULMONARY Hx Chronic Obstructive Pulmonary Disease (COPD): Yes (EMPHYSEMA) - NEUROLOGICAL Hx Neurological Disorder: No Hx Vertigo: Yes - HEENT Hx HEENT Problems: No - RENAL Hx Chronic Kidney Disease: No - ENDOCRINE/METABOLIC Hx Diabetes Mellitus Type 2: Yes - HEMATOLOGICAL/ONCOLOGICAL Hx Anemia: Yes Hx Blood Transfusions: Yes - INTEGUMENTARY Hx Dermatological Problems: No Other/Comment: BLE w/ cauliflowered skin - MUSCULOSKELETAL/RHEUMATOLOGICAL Hx Arthritis: Yes (NECK, L SH; B/L KNEES) - GASTROINTESTINAL Hx Gastritis: Yes - GENITOURINARY/GYNECOLOGICAL Hx Genitourinary Disorders: No Para: 2 - PSYCHIATRIC Hx Physical Abuse: No Hx Schizophrenia: No Hx Sexual Abuse: No Hx Substance Use: No - SURGICAL HISTORY Hx Cholecystectomy: Yes (in 2010) Hx Tonsillectomy: Yes (8yrs old) - ANESTHESIA Hx Anesthesia: Yes Hx Anesthesia Reactions: No Hx Malignant Hyperthermia: No Meds Allergies/Adverse Reactions: Allergies Allergy/AdvReac Type Severity Reaction Status Date / Time Gadolinium-Containing Allergy ITCHING Verified 12/13/16 15:45 Contrast Medi - Medications Medications: Current Medications Acetaminophen/Codeine Phosphate (Tylenol/Codeine 300 Mg/30 Mg) 1 ea PO Q4 PRN PRN Reason: Pain, moderate (4-7) Last Admin: 03/12/17 03:39 Dose: 1 ea Calcium/Vitamin D (Oscal-D 250 Mg-125 Units Tab) 1 tab PO DAILY [facility] Last Admin: 03/11/17 11:04 Dose: 1 tab Ferrous Sulfate (Feosol) 325 mg PO DAILY [facility] Last Admin: 03/11/17 11:04 Dose: 325 mg Folic Acid (Folic Acid) 1 mg PO DAILY [facility] Last Admin: 03/11/17 11:04 Dose: 1 mg Furosemide (Lasix) 40 mg PO DAILY [facility] Last Admin: 03/11/17 11:04 Dose: 40 mg Metronidazole (Flagyl) 500 mg in 100 mls @ 100 mls/hr IVPB Q8H [facility] Last Admin: 03/12/17 01:08 Dose: 100 mls/hr Tigecycline 50 mg/ Dextrose 100 mls @ 100 mls/hr IVPB Q12H [facility] Last Admin: 03/11/17 23:44 Dose: 100 mls/hr Gentamicin Sulfate 80 mg/ (Sodium Chloride) 102 mls @ 100 mls/hr IVPB Q24H [facility] Last Admin: 03/11/17 19:17 Dose: 100 mls/hr Insulin Glargine (Lantus) 8 unit SC [facility] Last Admin: 03/11/17 21:32 Dose: Not Given Insulin Human Regular (Novolin R) 0 unit SC [facility] PRN Reason: Protocol Last Admin: 03/11/17 21:32 Dose: Not Given Lactic Acid (Lac-Hydrin 12% Lotion (225 G)) 0 gm EXT BID [facility] Last Admin: 03/11/17 17:43 Dose: 1 applic Loperamide HCl (Imodium) 2 mg PO Q4H PRN PRN Reason: Diarrhea Lorazepam (Ativan) 0.5 mg PO HS PRN PRN Reason: Anxiety Last Admin: 03/10/17 03:45 Dose: 0.5 mg Multivitamins (Hexavitamin) 1 tab PO DAILY [facility] Last Admin: 03/11/17 11:07 Dose: 1 tab Potassium Chloride (K-Dur 20 Meq Er Tab) 20 meq PO DAILY [facility] Last Admin: 03/11/17 11:04 Dose: 20 meq Results - Vital Signs Recent Vital Signs: Last Vital Signs Temp 98.4 F 03/12/17 00:00 Pulse 88 03/12/17 00:00 Resp 20 03/12/17 00:00 BP 121/68 03/12/17 06:05 Pulse Ox 100 03/12/17 00:00 - Labs Result Diagrams: 03/11/17 12:11 03/11/17 12:11 Labs: Laboratory Results - last 24 hr 03/11/17 03/11/17 03/11/17 07:20 11:11 12:11 WBC RBC Hgb Hct MCV MCH MCHC RDW Plt Count MPV Neut % (Auto) Lymph % (Auto) [place] % (Auto) Eos % (Auto) Baso % (Auto) Neut # Lymph # [place] # Eos # Baso # Neutrophils % (Manual) Lymphocytes % (Manual) Monocytes % (Manual) Platelet Estimate Polychromasia Hypochromasia (manual) Poikilocytosis (manual Anisocytosis (manual) Macrocytosis (manual) Spherocytes Target Cells Tear Drop Cells Ovalocytes Hugh Cells Sodium 138 Potassium 3.7 Chloride 108 H Carbon Dioxide 22 Anion Gap 12 BUN 17 Creatinine 1.0 Est GFR ( Amer) > 60 Est GFR (Non-Af Amer) 54 POC Glucose (mg/dL) 123 H 144 H Random Glucose 129 H Calcium 7.3 L Total Bilirubin 1.3 AST 28 ALT 32 Alkaline Phosphatase 419 H D Total Protein 5.9 L Albumin 2.0 L Globulin 3.9 Albumin/Globulin Ratio 0.5 L 03/11/17 03/11/17 03/11/17 12:11 16:26 21:10 WBC 20.4 H RBC 2.81 L Hgb 8.6 L Hct 27.2 L MCV 96.8 MCH 30.6 MCHC 31.6 L RDW 22.8 H Plt Count 17 L* MPV 11.1 Neut % (Auto) 63.4 Lymph % (Auto) 11.9 L [place]enson % (Auto) 24.2 H Eos % (Auto) 0.1 Baso % (Auto) 0.4 Neut # 12.9 H Lymph # 2.4 Dickenson # 4.9 H Eos # 0.0 Baso # 0.1 Neutrophils % (Manual) 66 Lymphocytes % (Manual) 12 L Monocytes % (Manual) 22 H Platelet Estimate Markedly decreased L Polychromasia Slight Hypochromasia (manual) Slight Poikilocytosis (manual Slight Anisocytosis (manual) Moderate Macrocytosis (manual) Slight Spherocytes Slight Target Cells Slight Tear Drop Cells Slight Ovalocytes Slight [place] Cells Slight Sodium Potassium Chloride Carbon Dioxide Anion Gap BUN Creatinine Est GFR ( Amer) Est GFR (Non-Af Amer) POC Glucose (mg/dL) 149 H 119 H Random Glucose Calcium Total Bilirubin AST ALT Alkaline Phosphatase Total Protein Albumin Globulin Albumin/Globulin Ratio 03/12/17 01:55 WBC RBC Hgb Hct MCV MCH MCHC RDW Plt Count MPV Neut % (Auto) Lymph % (Auto) Dickenson % (Auto) Eos % (Auto) Baso % (Auto) Neut # Lymph # Dickenson # Eos # Baso # Neutrophils % (Manual) Lymphocytes % (Manual) Monocytes % (Manual) Platelet Estimate Polychromasia Hypochromasia (manual) Poikilocytosis (manual Anisocytosis (manual) Macrocytosis (manual) Spherocytes Target Cells Tear Drop Cells Ovalocytes [place] Cells Sodium Potassium Chloride Carbon Dioxide Anion Gap BUN Creatinine Est GFR ( Amer) Est GFR (Non-Af Amer) POC Glucose (mg/dL) 147 H Random Glucose Calcium Total Bilirubin AST ALT Alkaline Phosphatase Total Protein Albumin Globulin Albumin/Globulin Ratio
[2017-03-12 07:29] LABS: CHLORIDE 108 mmol/L (98-107); POTASSIUM 3.6 mmol/L (3.6-5.2); SODIUM 139 mmol/L (132-148)
[2017-03-12 07:32] LABS: GFR AFRICAN-AMERICAN > 60
[2017-03-12 07:33] LABS: BLOOD UREA NITROGEN 16 mg/dL (7-17); CALCIUM 7.6 mg/dl (8.6-10.4); CARBON DIOXIDE 24 mmol/L (22-30); GLUCOSE,RANDOM 130 mg/dL (65-105); MAGNESIUM 1.7 mg/dL (1.6-2.3); PHOSPHOROUS 2.9 mg/dL (2.5-4.5)
[2017-03-12 07:50] LABS: HOMOCYSTEINE 8.2 umol/L (4.7-12.6)
[2017-03-12 08:21] LABS: ABG ALLEN TEST POS; ARTERIAL BLOOD HGB O2 SAT 95.9 % (95.0-98.0); CARBOXYHEMOGLOBIN 2.3 % (0.5-1.5); DRAW SITE RR; HHB -0.2 % (0.0-5.0)
[2017-03-12] MEDS: (Novolin R) Insulin Human Regular 100 units/ml vial SC SCH ×3 (08:23→17:10)
[2017-03-12 08:51] LABS: FREE T4 1.67 ng/dL (0.78-2.19)
[2017-03-12 09:05] LABS: THYROID STIMULATING HORMONE 4.23 mIU/L (0.46-4.68)
--- NOTE | 2017-03-12 10:22 | CT ---
PROCEDURE: CT HEAD WITHOUT CONTRAST. HISTORY: stroke ? brain stem COMPARISON: None available. TECHNIQUE: Axial computed tomography images were obtained through the head/brain without intravenous contrast. Radiation dose: Total exam DLP = 967.83 mGy-cm. This CT exam was performed using one or more of the following dose reduction techniques: Automated exposure control, adjustment of the mA and/or kV according to patient size, and/or use of iterative reconstruction technique. FINDINGS: HEMORRHAGE: No intracranial hemorrhage. BRAIN: No definite intracranial mass identified. There is right frontal vasogenic edema without evidence of clear mass-effect upon the frontal horn of right lateral ventricle. This is nevertheless concerning for a neoplastic process. Less likely this could represent an infectious process. No intracranial mass identified elsewhere. No evidence of acute infarct. Mild diffuse age-appropriate cerebral atrophy. Questionable small arachnoid cyst anterior to anterior right temporal tip. VENTRICLES: There is approximately 3 mm midline shift towards the left of the interventricular septum. However, at the level of the inferior frontal lobes there is more pronounced midline shift of the anterior inferior falx cerebri as a result of the right inferior frontal vasogenic edema. No hydrocephalus. CALVARIUM: Unremarkable. PARANASAL SINUSES: Unremarkable as visualized. No significant inflammatory changes. MASTOID AIR CELLS: Left mastoid effusion noted common nonspecific. Cerumen noted in right external auditory canal. Please correlate with direct visual inspection. OTHER FINDINGS: None. IMPRESSION: Suspected right frontal neoplasm versus infection. Please correlate clinically. Recommend evaluation with gadolinium enhanced magnetic resonance imaging. There is midline shift at the most inferior anterior falx cerebri. Possible small arachnoid cyst anterior to the right anterior temporal tip. Nonspecific right mastoid effusion. Probable cerumen in right external auditory canal. Please correlate with direct visual inspection. The findings in this examination were discussed with Dr. Cota by telephone at 10:15 a.m. on 03/12/2017.
[2017-03-12] MEDS: Ammonium Lactate 12% Lotion (225 g) EXT SCH ×2 (10:50→17:33)
[2017-03-12] MEDS: Potassium Chloride 20 mEq ER Tab PO SCH ×2 (10:50→12:44)
[2017-03-12] MEDS: Calcium-Vit D 250 mg-125 Units Tab UD PO SCH ×2 (10:50→12:43)
[2017-03-12] MEDS: Multiple Vitamins Tab PO SCH (10:50)
[2017-03-12] MEDS: Albuterol 0.042% Inhal Sol (1.25 mg/3 mL) UD INH SCH ×2 (11:27→16:02)
--- NOTE | 2017-03-12 12:00 | CP.PCM.PN ---
Subjective - Date & Time of Evaluation Date of Evaluation: 03/12/17 Time of Evaluation: 07:00 - Subjective Subjective: pt with severe sepsis had weakness and dysphagia on admission- Genta held Objective - Vital Signs/Intake and Output Vital Signs (last 24 hours): Temp Pulse Resp BP Pulse Ox 97.7 F 79 20 124/71 100 03/12/17 08:19 03/12/17 08:19 03/12/17 08:19 03/12/17 08:19 03/12/17 08:19 Intake and Output: 03/12/17 03/12/17 06:59 18:59 Intake Total 350 400 Balance 350 400 - Medications Medications: Current Medications Acetaminophen/Codeine Phosphate (Tylenol/Codeine 300 Mg/30 Mg) 1 ea PO Q4 PRN PRN Reason: Pain, moderate (4-7) Last Admin: 03/12/17 03:39 Dose: 1 ea Albuterol Sulfate (Albuterol 0.042% Inhal Tricia (1.25mg/3ml) Ud) 1.25 mg INH RQ8 [facility] Last Admin: 03/12/17 11:27 Dose: 1.25 mg Calcium/Vitamin D (Oscal-D 250 Mg-125 Units Tab) 1 tab PO DAILY [facility] Last Admin: 03/12/17 10:50 Dose: Not Given Ferrous Sulfate (Feosol) 325 mg PO DAILY [facility] Last Admin: 03/12/17 10:49 Dose: Not Given Folic Acid (Folic Acid) 1 mg PO DAILY [facility] Last Admin: 03/12/17 10:49 Dose: Not Given Furosemide (Lasix) 40 mg PO DAILY [facility] Last Admin: 03/12/17 10:50 Dose: Not Given Metronidazole (Flagyl) 500 mg in 100 mls @ 100 mls/hr IVPB Q8H [facility] Last Admin: 03/12/17 10:49 Dose: Not Given Tigecycline 50 mg/ Dextrose 100 mls @ 100 mls/hr IVPB Q12H [facility] Last Admin: 03/11/17 23:44 Dose: 100 mls/hr Insulin Glargine (Lantus) 8 unit SC HS [facility] Last Admin: 03/11/17 21:32 Dose: Not Given Insulin Human Regular (Novolin R) 0 unit SC [facility] PRN Reason: Protocol Last Admin: 03/12/17 11:53 Dose: Not Given Lactic Acid (Lac-Hydrin 12% Lotion (225 G)) 0 gm EXT BID [facility] Last Admin: 03/12/17 10:50 Dose: Not Given Loperamide HCl (Imodium) 2 mg PO Q4H PRN PRN Reason: Diarrhea Lorazepam (Ativan) 0.5 mg PO HS PRN PRN Reason: Anxiety Last Admin: 03/10/17 03:45 Dose: 0.5 mg Multivitamins (Hexavitamin) 1 tab PO DAILY [facility] Last Admin: 03/12/17 10:50 Dose: Not Given Potassium Chloride (K-Dur 20 Meq Er Tab) 20 meq PO DAILY [facility] Last Admin: 03/12/17 10:50 Dose: Not Given Pyridostigmine [place] (Mestinon Tab) 60 mg PO TID [facility] Last Admin: 03/12/17 10:50 Dose: Not Given - Labs Labs: 03/11/17 12:11 03/12/17 07:02 - Constitutional Appears: Confused, Chronically Ill - Head Exam Head Exam: NORMOCEPHALIC - Eye Exam Eye Exam: PERRL - ENT Exam ENT Exam: Mucous Membranes Dry - Neck Exam Neck Exam: absent: Lymphadenopathy - Respiratory Exam Respiratory Exam: Decreased Breath Sounds - Cardiovascular Exam Cardiovascular Exam: REGULAR RHYTHM - GI/Abdominal Exam GI & Abdominal Exam: Distended - Rectal Exam Rectal Exam: Deferred - Exam Exam: NORMAL INSPECTION - Extremities Exam Extremities Exam: absent: Pedal Edema - Back Exam Back Exam: absent: CVA tenderness (L), CVA tenderness (R) Assessment and Plan (1) Myelodysplasia (myelodysplastic syndrome) Status: Acute (2) Severe anemia Status: Acute (3) Acute on chronic diastolic (congestive) heart failure Status: Acute (4) Anemia Status: Acute (5) Degenerative disc disease at L5-S1 level Status: Acute (6) Dehydration Status: Acute (7) Diabetes mellitus type 2 in obese Status: Acute (8) Carbapenem-resistant bacterial infection Status: Acute (9) Carbapenem-resistant bacterial infection Status: Acute
[2017-03-12] MEDS: Tigecycline 50 MG in Dextrose 5% In Water 100 ML IVPB SCH (12:45)
--- NOTE | 2017-03-12 12:52 | CON ---
ATTENDING PHYSICIAN: Junito Foster MD. LOCATION: The patient is in room #357, bed B. REASON FOR CONSULTATION: Problem in swallow. CHIEF COMPLAINT: The patient was brought in to [facility] on 03/04/2017 with complaints of shoulder pain, severe anemia, and problem in breathing. From neurological point of view, I was called in to evaluate her for new onset of bulbar dysfunction. HISTORY OF PRESENT ILLNESS: The patient is a 76-year-old moderately obese right-handed -[place] female, presenting with slow progressive weakness of her arms and legs since July. Her ability of walking independently is gone. She has been bedridden, and weakness of her arms and legs as well. She also admits her droopy eyelid on her right side is getting progressively recently. History of episodic double vision and problem in swallow, and easy fatigability. No history of pneumonia. No history of any recent infection; however, she has been on multiple antibiotics, including neuromuscular blockades. These symptoms have been getting worse, including ptosis, double vision, bulbar dysfunction, and generalized weakness. No history of involuntary movements. No history of focal weakness. However, she was told that she did have a stroke recently. PAST MEDICAL HISTORY: Anemia, bronchitis, noninsulin-dependent diabetes mellitus, hypertension, peripheral edema. PERSONAL HISTORY: Denies smoking or alcohol use. REVIEW OF SYSTEMS: Twelve-point review of systems had been reviewed. From neuro, new onset of bulbar dysfunction. MEDICATION: Ativan, iron, Flagyl, folic acid,, Imodium, potassium, Lac-Hydrin, insulin, Lasix, Ticarcillin, acetaminophen, and gentamicin. PHYSICAL EXAMINATION: VITAL SIGNS: Blood pressure 121/68, mean arterial pressure 92, respiratory rate 20, temperature 98.4, pulse rate 88, regular. NECK: Supple. No carotid bruit. HEART: Sounds are regular. CHEST: Fair air entry. EXTREMITIES: Hypertrophied skin. Skin changes with significant edema noted distally two third of her leg, including feet. Left leg is externally rotated. NEUROLOGICAL: Mental status examination: She is awake, alert, oriented to person, place and time. Speech is clear. Cranial nerve examination: Right eye ptosis than left eye. Both eyes are proptotic. Conjunctival edema noted, both eyes. On forcefully opening the right eyelid, she admits her vision is there; however, compared to the left eye, vision is not there. Extraocular movement markedly decreased in all direction. No facial sensory deficit. No facial asymmetry. She could be able to swallow her own saliva. Motor examination: Significant atrophy on proximal muscle groups noted. She could be able to lift both the upper extremities not more than 1 minute. She could able to move her toes good on both sides. Left leg is externally rotated. Deep tendon reflexes are absent. Plantar signs are equivocal response. Significant posterior column dysfunction affecting position sense in both lower extremities. Coordination could not able to do due to her weakness. LABORATORY DATA: WBC 20.4, hemoglobin 8.6, hematocrit 27.2, platelets Sodium 138, potassium 3.7, chloride 108, bicarbonate 22, GFR more than 60, glucose 147, AST 28, ALT 32, alkaline phosphatase 419. X-ray of the chest: Some pulmonary changes noted. No hilar adenopathy. CONCLUSION: 1. The patient has been presenting with progressive weakness, increasing ptosis of her right eye, severe external ophthalmoplegia with diplopia, bulbar dysfunction with possible infection, impending respiratory dysfunction. 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 2. The patient also is suffering from left leg externally rotated, possible right subcortical dysfunction. This is probably ischemic process, new versus old. 3. The patient had a significant bilateral distal symmetric sensorimotor neuropathy involving both the posterior as well as small fibers. RECOMMENDATION: 1. Offending agents should be discontinued such as gentamicin and appropriate antibiotic should be given as per Dr. Prabhakar. 2. Speech and swallow evaluation. Keep aspiration precaution. 3. Pulmonary function test. Pulmonary consultation should be called back in to Dr. Silva to assess her pulmonary function related to neuromuscular junctional disease. 4. PFT can be done in room air to assess her pulmonary function. 5. Blood workup as per the order. 6. Empirically, I would like to put her on Mestinon and see her response. 7. DVT prophylaxis. 8. Bedside physical therapy should be called in. The patient will be followed closely with you. Javad Cota MD [facility]
--- NOTE | 2017-03-12 15:28 | RAD ---
Chest x-ray three views History: Congestive heart failure. Comparison: 03/10/2017 Findings: Moderate to severe venous congestion with confluent airspace consolidative changes throughout both lungs most prominent in the left mid to lower lung zone. Small left pleural effusion. Cardiomegaly. Right chest wall port in stable position. IVC filter in place. Degenerative changes in the spine and shoulders. Impression: Moderate to severe venous congestion with confluent airspace consolidative changes throughout both lungs most prominent in the left mid to lower lung zone. Small left pleural effusion. Cardiomegaly. Right chest wall port in stable position. IVC filter in place.
[2017-03-12 15:59] LABS: RAPID PLASMA REAGIN NONREACTIVE (NONREACTIVE)
[2017-03-12] MEDS ORDERED: Iohexol 350mg/ml 100 ML ONE (16:01)
--- NOTE | 2017-03-12 16:29 | PN ---
DATE: SUBJECTIVE: The patient is more alert today. She has not had sleeping pill last night. She is more alert and oriented. PHYSICAL EXAMINATION: GENERAL: She is not in acute distress, although she feels weak. VITAL SIGNS: She is afebrile with blood pressure 124/70, pulse 79 per minute, respirations 20 per minute and hemoglobin oxygen saturation of 100% on nasal cannula oxygen at 2 L. CARDIOPULMONARY: Her heart is regular. There is no gallop rhythm. LUNGS: Diminished breath sounds. Rhonchi decreased. ABDOMEN: Soft. EXTREMITIES: Legs, bilateral hyperpigmented scaly skin with dermatosis. LABORATORY DATA: Her arterial blood gas studies on FiO2 of 30% showed pO2 of 139, pCO2 of 40, pH of 7.42, and bicarbonate of 26. Her BUN is 16, creatinine 1, potassium 3.6 while she is on oral potassium chloride, her sodium 139, chloride 108, blood glucose is 111. Serum phosphorus is 2.9, magnesium is 1.7. C-reactive protein is high over 15. Gentamicin level is 2.9. Chest x-ray done this morning shows improvement in pulmonary congestive changes. She will receive Lasix to relieve pulmonary congestion. The patient was seen by the neurologist, who will consider the possibility of myasthenia gravis and he has ordered lab tests including the antibodies against acetylcholine receptors and has started the patient on pyridostigmine. IMPRESSION: Respiratory insufficiency, chronic obstructive pulmonary disease with exacerbation, diabetes mellitus, myelodysplasia syndrome, severe anemia and sepsis, possibly from Port-A-Cath. The patient has been seen by Infectious Disease specialist and Hematology-Oncology. PLAN: To continue with the current regimen with antibiotics, bronchodilators, oxygen therapy, and other measures to improve pulmonary congestion and her general status and control infection. Abundio Silva MD [facility]
--- NOTE | 2017-03-12 16:30 | CP.PCM.PN ---
Subjective - Date & Time of Evaluation Date of Evaluation: 03/12/17 Time of Evaluation: 16:30 - Subjective Subjective: Vascular Surgery Note for Dr. Bateman Patient seen and examined at bedside. Patient states she feels worse today. Patient seems withdrawn and lethargic. Patient being worked up for myasthenia gravis. Denies fever/chills, chest pain, SOB, palpitations, abdominal pain, nausea/vomiting, diarrhea, and constipation. Objective - Vital Signs/Intake and Output Vital Signs (last 24 hours): Temp Pulse Resp BP Pulse Ox 97.7 F 79 20 124/78 100 03/12/17 08:19 03/12/17 08:19 03/12/17 08:19 03/12/17 12:43 03/12/17 08:19 Intake and Output: 03/12/17 03/12/17 06:59 18:59 Intake Total 350 400 Balance 350 400 - Medications Medications: Current Medications Acetaminophen/Codeine Phosphate (Tylenol/Codeine 300 Mg/30 Mg) 1 ea PO Q4 PRN PRN Reason: Pain, moderate (4-7) Last Admin: 03/12/17 03:39 Dose: 1 ea Albuterol Sulfate (Albuterol 0.042% Inhal Tricia (1.25mg/3ml) Ud) 1.25 mg INH RQ8 [facility] Last Admin: 03/12/17 16:02 Dose: 1.25 mg Calcium/Vitamin D (Oscal-D 250 Mg-125 Units Tab) 1 tab PO DAILY [facility] Last Admin: 03/12/17 12:43 Dose: 1 tab Ferrous Sulfate (Feosol) 325 mg PO DAILY [facility] Last Admin: 03/12/17 10:49 Dose: Not Given Folic Acid (Folic Acid) 1 mg PO DAILY [facility] Last Admin: 03/12/17 12:43 Dose: 1 mg Furosemide (Lasix) 40 mg PO DAILY [facility] Last Admin: 03/12/17 12:43 Dose: 40 mg Metronidazole (Flagyl) 500 mg in 100 mls @ 100 mls/hr IVPB Q8H [facility] Last Admin: 03/12/17 12:44 Dose: 100 mls/hr Tigecycline 50 mg/ Dextrose 100 mls @ 100 mls/hr IVPB Q12H [facility] Last Admin: 03/12/17 12:45 Dose: 100 mls/hr Insulin Glargine (Lantus) 8 unit SC HS [facility] Last Admin: 03/11/17 21:32 Dose: Not Given Insulin Human Regular (Novolin R) 0 unit SC A[facility]S [facility] PRN Reason: Protocol Last Admin: 03/12/17 11:53 Dose: Not Given Lactic Acid (Lac-Hydrin 12% Lotion (225 G)) 0 gm EXT BID [facility] Last Admin: 03/12/17 10:50 Dose: Not Given Loperamide HCl (Imodium) 2 mg PO Q4H PRN PRN Reason: Diarrhea Lorazepam (Ativan) 0.5 mg PO HS PRN PRN Reason: Anxiety Last Admin: 03/10/17 03:45 Dose: 0.5 mg Multivitamins (Hexavitamin) 1 tab PO DAILY [facility] Last Admin: 03/12/17 10:50 Dose: Not Given Potassium Chloride (K-Dur 20 Meq Er Tab) 20 meq PO DAILY [facility] Last Admin: 03/12/17 12:44 Dose: 20 meq Pyridostigmine [place] (Mestinon Tab) 60 mg PO TID [facility] Last Admin: 03/12/17 15:15 Dose: 60 mg - Labs Labs: 03/11/17 12:11 03/12/17 07:02 - Constitutional Appears: No Acute Distress - Head Exam Head Exam: ATRAUMATIC, NORMOCEPHALIC - Eye Exam Additional comments: worsening ptosis - ENT Exam ENT Exam: Mucous Membranes Moist - Neck Exam Additional comments: Right IJ portacath buried in tunneled in right chest - Respiratory Exam Respiratory Exam: NORMAL BREATHING PATTERN - Cardiovascular Exam Cardiovascular Exam: REGULAR RHYTHM - GI/Abdominal Exam GI & Abdominal Exam: Soft. absent: Tenderness - Neurological Exam Neurological Exam: Alert, Awake - Psychiatric Exam Psychiatric exam: Flat Affect - Skin Skin Exam: Dry, Warm Assessment and Plan - Assessment and Plan (Free Text) Plan: 76F with klebsiella bacteremia/possible CLABSI and suspected Myasthenia gravis -Continue IV antibiotics as per Dr. Prabhakar -Will need platelets > 50K for portacath removal -F/u Neuro & ID recommendations -Management as per primary -Willl Discuss with Dr. Fransico Blue PGY1
--- NOTE | 2017-03-12 17:13 | CT ---
PROCEDURE: CT HEAD WITH CONTRAST HISTORY: abnornal head ct COMPARISON: None available. TECHNIQUE: Axial computed tomography images were obtained through the head/brain with intravenous contrast. Contrast dose: 100 cc Visipaque 320 Radiation dose: Total exam DLP = 1092.99 mGy-cm. This CT exam was performed using one or more of the following dose reduction techniques: Automated exposure control, adjustment of the mA and/or kV according to patient size, and/or use of iterative reconstruction technique. FINDINGS: HEMORRHAGE: No intracranial hemorrhage. BRAIN: Dural-based mass dense contrast enhancement with adjacent vasogenic edema of has originally seen on the unenhanced study. The mass measures 2.9 cm. The mass appears to displace the anterior cerebral arteries. This does not appear to represent aneurysm or AV malformation. No atrophy or chronic microvascular ischemic changes. VENTRICLES: Unremarkable. No hydrocephalus. CALVARIUM: Unremarkable. PARANASAL SINUSES: Unremarkable as visualized. No significant inflammatory changes. MASTOID AIR CELLS: Unremarkable as visualized. No mastoid effusion. OTHER FINDINGS: None. IMPRESSION: Contrast-enhancing mass adjacent to the falx measuring 2.8 cm. The overall appearance, contrast-enhancing characteristics have the location highly suggestive of meningioma. No additional masses are seen on the current study
[2017-03-12] MEDS ORDERED: Magnesium Hydroxide Susp 30 ml UD PO PRN (18:52)
--- NOTE | 2017-03-12 21:21 | CARD ---
APPROVED REPORT EXAM: Two-dimensional and M-mode echocardiogram with Doppler and color Doppler. Other Information Quality : [employer] : INDICATION + Blood Culture RISK FACTORS Hypertension Diabetes 2D DIMENSIONS IVSd1.2 (0.7-1.1cm)LVDd3.9 (3.9-5.9cm) PWd1.1 (0.7-1.1cm)LVDs2.3 (2.5-4.0cm) FS (%) 41.3 %LVEF (%)72.8 (>50%) M-Mode DIMENSIONS Left Atrium (MM)2.36 (2.5-4.0cm)Aortic Root2.94 (2.2-3.7cm) Aortic Cusp Exc.2.28 (1.5-2.0cm) Mitral Valve MV E Mjylitos00.7cm/sMV A Ckebvvcb197.3cm/sE/A ratio0.7 TDI E/Lateral E'0.0E/Medial E'0.0 Tricuspid Valve TR Peak Wwotzqqh617mr/sTR Peak Gr.[id number] LEFT VENTRICLE The left ventricle is normal size. There is normal left ventricular wall thickness. The left ventricular function is normal. The left ventricular ejection fraction is within the normal range. 65% No regional wall motion abnormalities noted. Transmitral Doppler flow pattern is Grade I-abnormal relaxation pattern. No left ventricle thrombus noted on this study. There is no ventricular septal defect visualized. There is no left ventricular aneurysm. There is no mass noted in the left ventricle. RIGHT VENTRICLE The right ventricle is normal size. There is normal right ventricular wall thickness. The right ventricular systolic function is normal. ATRIA The left atrium size is normal. The right atrium size is normal. The interatrial septum is intact with no evidence for an atrial septal defect. AORTIC VALVE The aortic valve is normal in structure and function. Mild aortic regurgitation is present. There is no aortic valvular stenosis. There is no aortic valvular vegetation. MITRAL VALVE The mitral valve is normal in structure and function. There is no evidence of mitral valve prolapse. There is no mitral valve stenosis. There is no mitral valve regurgitation noted. TRICUSPID VALVE The tricuspid valve is normal in structure and function. There is no tricuspid valve regurgitation noted. There is no tricuspid valve prolapse or vegetation. There is no tricuspid valve stenosis. PULMONIC VALVE The pulmonary valve is normal in structure and function. There is no pulmonic valvular regurgitation. There is no pulmonic valvular stenosis. GREAT VESSELS The aortic root is normal in size. The ascending aorta is normal in size. The pulmonary artery is normal. The IVC is normal in size and collapses >50% with inspiration. PERICARDIAL EFFUSION The pericardium appears normal. There is no pleural effusion. <Conclusion> The left ventricular function is normal. Mild aortic regurgitation is present.
[2017-03-12] MEDS: (Lantus) Insulin Glargine, Recombinant SC SCH (22:11)
--- NOTE | 2017-03-12 23:04 | CP.PCM.PN ---
Subjective - Date & Time of Evaluation Date of Evaluation: 03/12/17 Time of Evaluation: 16:40 - Subjective Subjective: Patient still confused and weak. She was seen by Dr Cota who order an evaluation for myastenia gravis. Continue IV antibiotic. Objective - Vital Signs/Intake and Output Vital Signs (last 24 hours): Temp Pulse Resp BP Pulse Ox 98.2 F 92 H 20 127/69 100 03/12/17 15:00 03/12/17 15:00 03/12/17 15:00 03/12/17 15:00 03/12/17 15:00 Intake and Output: 03/12/17 03/13/17 18:59 06:59 Intake Total 700 Balance 700 - Medications Medications: Current Medications Acetaminophen/Codeine Phosphate (Tylenol/Codeine 300 Mg/30 Mg) 1 ea PO Q4 PRN PRN Reason: Pain, moderate (4-7) Last Admin: 03/12/17 03:39 Dose: 1 ea Albuterol Sulfate (Albuterol 0.042% Inhal Tricia (1.25mg/3ml) Ud) 1.25 mg INH RQ8 JOSIE Last Admin: 03/12/17 16:02 Dose: 1.25 mg Calcium/Vitamin D (Oscal-D 250 Mg-125 Units Tab) 1 tab PO DAILY JOSIE Last Admin: 03/12/17 12:43 Dose: 1 tab Ferrous Sulfate (Feosol) 325 mg PO DAILY JOSIE Last Admin: 03/12/17 10:49 Dose: Not Given Folic Acid (Folic Acid) 1 mg PO DAILY JOSIE Last Admin: 03/12/17 12:43 Dose: 1 mg Furosemide (Lasix) 40 mg PO DAILY JOSIE Last Admin: 03/12/17 12:43 Dose: 40 mg Metronidazole (Flagyl) 500 mg in 100 mls @ 100 mls/hr IVPB Q8H JOSIE Last Admin: 03/12/17 17:21 Dose: 100 mls/hr Tigecycline 50 mg/ Dextrose 100 mls @ 100 mls/hr IVPB Q12H JOSIE Last Admin: 03/12/17 12:45 Dose: 100 mls/hr Insulin Glargine (Lantus) 8 unit SC HS JOSIE Last Admin: 03/12/17 22:11 Dose: 8 units Insulin Human Regular (Novolin R) 0 unit SC ACHS JOSIE PRN Reason: Protocol Last Admin: 03/12/17 17:10 Dose: 1 unit Lactic Acid (Lac-Hydrin 12% Lotion (225 G)) 0 gm EXT BID [facility] Last Admin: 03/12/17 17:33 Dose: 1 applic Loperamide HCl (Imodium) 2 mg PO Q4H PRN PRN Reason: Diarrhea Lorazepam (Ativan) 0.5 mg PO HS PRN PRN Reason: Anxiety Last Admin: 03/10/17 03:45 Dose: 0.5 mg Magnesium Hydroxide (Milk Of Magnesia) 30 ml PO DAILY PRN PRN Reason: Constipation Last Admin: 03/12/17 19:04 Dose: 30 ml Multivitamins (Hexavitamin) 1 tab PO DAILY [facility] Last Admin: 03/12/17 10:50 Dose: Not Given Potassium Chloride (K-Dur 20 Meq Er Tab) 20 meq PO DAILY [facility] Last Admin: 03/12/17 12:44 Dose: 20 meq Pyridostigmine [place] (Mestinon Tab) 60 mg PO TID [facility] Last Admin: 03/12/17 17:20 Dose: 60 mg - Labs Labs: 03/11/17 12:11 03/12/17 07:02 - Constitutional Appears: Chronically Ill - Head Exam Head Exam: NORMOCEPHALIC - Eye Exam Eye Exam: Normal appearance Pupil Exam: NORMAL ACCOMODATION - ENT Exam ENT Exam: Normal Oropharynx - Neck Exam Neck Exam: Normal Inspection - Respiratory Exam Respiratory Exam: Decreased Breath Sounds - Cardiovascular Exam Cardiovascular Exam: REGULAR RHYTHM - GI/Abdominal Exam GI & Abdominal Exam: Normal Bowel Sounds - Rectal Exam Rectal Exam: Deferred - Exam External exam: NORMAL EXTERNAL EXAM - Extremities Exam Extremities Exam: Pedal Edema - Back Exam Back Exam: paraspinal tenderness - Neurological Exam Neurological Exam: Altered - Psychiatric Exam Psychiatric exam: Depressed - Skin Skin Exam: Dry Assessment and Plan (1) Myelodysplasia (myelodysplastic syndrome) Status: Acute (2) Severe anemia Status: Acute (3) Degenerative disc disease at L5-S1 level Status: Acute (4) Osteoarthritis Status: Acute (5) Thrombocytopenia Status: Acute (6) Sepsis Status: Acute
[2017-03-13] MEDS: Tigecycline 50 MG in Dextrose 5% In Water 100 ML IVPB SCH ×2 (00:10→12:09)
[2017-03-13] MEDS: Albuterol 0.042% Inhal Sol (1.25 mg/3 mL) UD INH SCH ×4 (00:29→23:49)
[2017-03-13] MEDS: metroNIDAZOLE IV 500 mg/100 ml 500 MG/100 ML BAG IVPB SCH ×3 (01:31→17:22)
[2017-03-13] MEDS: (Novolin R) Insulin Human Regular 100 units/ml vial SC SCH ×4 (08:04→21:50)
--- NOTE | 2017-03-13 08:46 | CP.PCM.PN ---
Subjective - Date & Time of Evaluation Date of Evaluation: 03/13/17 Time of Evaluation: 08:45 - Subjective Subjective: Surgery: Dr. Bateman Pt seen and examined. Remains lethargic. Per nursing no acute events overnight. Objective - Vital Signs/Intake and Output Vital Signs (last 24 hours): Temp Pulse Resp BP Pulse Ox 97.4 F L 77 20 120/71 97 03/13/17 07:00 03/13/17 07:00 03/13/17 07:00 03/13/17 07:00 03/13/17 07:00 - Medications Medications: Current Medications Acetaminophen/Codeine Phosphate (Tylenol/Codeine 300 Mg/30 Mg) 1 ea PO Q4 PRN PRN Reason: Pain, moderate (4-7) Last Admin: 03/12/17 03:39 Dose: 1 ea Albuterol Sulfate (Albuterol 0.042% Inhal Tricia (1.25mg/3ml) Ud) 1.25 mg INH RQ8 JOSIE Last Admin: 03/13/17 00:29 Dose: Not Given Calcium/Vitamin D (Oscal-D 250 Mg-125 Units Tab) 1 tab PO DAILY [facility] Last Admin: 03/12/17 12:43 Dose: 1 tab Ferrous Sulfate (Feosol) 325 mg PO DAILY [facility] Last Admin: 03/12/17 10:49 Dose: Not Given Folic Acid (Folic Acid) 1 mg PO DAILY [facility] Last Admin: 03/12/17 12:43 Dose: 1 mg Furosemide (Lasix) 40 mg PO DAILY [facility] Last Admin: 03/12/17 12:43 Dose: 40 mg Metronidazole (Flagyl) 500 mg in 100 mls @ 100 mls/hr IVPB Q8H [facility] Last Admin: 03/13/17 01:31 Dose: 100 mls/hr Tigecycline 50 mg/ Dextrose 100 mls @ 100 mls/hr IVPB Q12H [facility] Last Admin: 03/13/17 00:10 Dose: 100 mls/hr Insulin Glargine (Lantus) 8 unit SC HS [facility] Last Admin: 03/12/17 22:11 Dose: 8 units Insulin Human Regular (Novolin R) 0 unit SC ACHS JOSIE PRN Reason: Protocol Last Admin: 03/13/17 08:04 Dose: Not Given Lactic Acid (Lac-Hydrin 12% Lotion (225 G)) 0 gm EXT BID JOSIE Last Admin: 03/12/17 17:33 Dose: 1 applic Loperamide HCl (Imodium) 2 mg PO Q4H PRN PRN Reason: Diarrhea Lorazepam (Ativan) 0.5 mg PO HS PRN PRN Reason: Anxiety Last Admin: 03/10/17 03:45 Dose: 0.5 mg Magnesium Hydroxide (Milk Of Magnesia) 30 ml PO DAILY PRN PRN Reason: Constipation Last Admin: 03/12/17 19:04 Dose: 30 ml Multivitamins (Hexavitamin) 1 tab PO DAILY [facility] Last Admin: 03/12/17 10:50 Dose: Not Given Potassium Chloride (K-Dur 20 Meq Er Tab) 20 meq PO DAILY [facility] Last Admin: 03/12/17 12:44 Dose: 20 meq Pyridostigmine [place] (Mestinon Tab) 60 mg PO TID [facility] Last Admin: 03/12/17 17:20 Dose: 60 mg - Labs Labs: 03/11/17 12:11 03/12/17 07:02 - Constitutional Appears: Non-toxic, No Acute Distress, Chronically Ill - Head Exam Head Exam: ATRAUMATIC, NORMOCEPHALIC - Eye Exam Eye Exam: EOMI - ENT Exam ENT Exam: Mucous Membranes Moist - Neck Exam Neck Exam: Full ROM - Respiratory Exam Respiratory Exam: NORMAL BREATHING PATTERN. absent: Accessory Muscle Use, Respiratory Distress - GI/Abdominal Exam GI & Abdominal Exam: Soft. absent: Tenderness - Extremities Exam Extremities Exam: absent: Calf Tenderness, Pedal Edema - Neurological Exam Neurological Exam: Alert, Awake - Skin Additional comments: R subclavian portacath, no signs of infection, no erythema/edema/drainage Assessment and Plan - Assessment and Plan (Free Text) Assessment: 76F w. thrombocytopenia and klebsiella bacteremia w. portacath as possible source -will f/u up ID recommendations and remove portacath if indicated -will need plts to be >50K for removal -will continue to follow -d/w attending Deenaitis PGY3
[2017-03-13 08:48] LABS: CHLORIDE 109 mmol/L (98-107); POTASSIUM 3.3 mmol/L (3.6-5.2); SODIUM 141 mmol/L (132-148)
[2017-03-13 08:51] LABS: BLOOD UREA NITROGEN 16 mg/dL (7-17); CARBON DIOXIDE 27 mmol/L (22-30); GFR AFRICAN-AMERICAN > 60
[2017-03-13 08:52] LABS: CALCIUM 7.6 mg/dl (8.6-10.4); GLUCOSE,RANDOM 98 mg/dL (65-105)
[2017-03-13] MEDS ORDERED: Potassium Chloride 20 mEq ER Tab PO SCH (10:00)
[2017-03-13] MEDS: Multiple Vitamins Tab PO SCH (11:13)
[2017-03-13] MEDS: Calcium-Vit D 250 mg-125 Units Tab UD PO SCH (11:13)
[2017-03-13] MEDS: Ammonium Lactate 12% Lotion (225 g) EXT SCH ×2 (11:16→17:23)
--- NOTE | 2017-03-13 11:21 | CP.PCM.PN ---
Subjective - Date & Time of Evaluation Date of Evaluation: 03/13/17 Time of Evaluation: 10:50 - Subjective Subjective: Podiatry Progress Note- Dr. Thompson: 76 yo patient seen at bedside this morning for f/u chronic right heel ulceration. Seen resting in bed at time of visit with offloading boots applied to b/l feet. Pt is arousable to verbal stimuli and responds to questions but appears very lethargic. Pt has klebsiella bacteremia with poracath as possible source. Does complain of some tenderness to both heels today. Objective - Vital Signs/Intake and Output Vital Signs (last 24 hours): Temp Pulse Resp BP Pulse Ox 97.4 F L 77 20 137/79 97 03/13/17 07:00 03/13/17 07:00 03/13/17 07:00 03/13/17 11:14 03/13/17 07:00 - Medications Medications: Current Medications Acetaminophen/Codeine Phosphate (Tylenol/Codeine 300 Mg/30 Mg) 1 ea PO Q4 PRN PRN Reason: Pain, moderate (4-7) Last Admin: 03/12/17 03:39 Dose: 1 ea Albuterol Sulfate (Albuterol 0.042% Inhal Tricia (1.25mg/3ml) Ud) 1.25 mg INH RQ8 JOSIE Last Admin: 03/13/17 07:32 Dose: Not Given Calcium/Vitamin D (Oscal-D 250 Mg-125 Units Tab) 1 tab PO DAILY [facility] Last Admin: 03/13/17 11:13 Dose: 1 tab Ferrous Sulfate (Feosol) 325 mg PO DAILY [facility] Last Admin: 03/13/17 11:13 Dose: 325 mg Folic Acid (Folic Acid) 1 mg PO DAILY [facility] Last Admin: 03/13/17 11:16 Dose: 1 mg Furosemide (Lasix) 40 mg PO DAILY [facility] Last Admin: 03/13/17 11:14 Dose: 40 mg Metronidazole (Flagyl) 500 mg in 100 mls @ 100 mls/hr IVPB Q8H [facility] Last Admin: 03/13/17 11:14 Dose: 100 mls/hr Tigecycline 50 mg/ Dextrose 100 mls @ 100 mls/hr IVPB Q12H [facility] Last Admin: 03/13/17 00:10 Dose: 100 mls/hr Insulin Glargine (Lantus) 8 unit SC HS [facility] Last Admin: 11/13/17 22:11 Dose: 8 units Insulin Human Regular (Novolin R) 0 unit SC ACHS JOSIE PRN Reason: Protocol Last Admin: 03/13/17 08:04 Dose: Not Given Lactic Acid (Lac-Hydrin 12% Lotion (225 G)) 0 gm EXT BID [facility] Last Admin: 03/13/17 11:16 Dose: Not Given Loperamide HCl (Imodium) 2 mg PO Q4H PRN PRN Reason: Diarrhea Lorazepam (Ativan) 0.5 mg PO HS PRN PRN Reason: Anxiety Last Admin: 03/10/17 03:45 Dose: 0.5 mg Magnesium Hydroxide (Milk Of Magnesia) 30 ml PO DAILY PRN PRN Reason: Constipation Last Admin: 03/12/17 19:04 Dose: 30 ml Multivitamins (Hexavitamin) 1 tab PO DAILY [facility] Last Admin: 03/13/17 11:13 Dose: 1 tab Potassium Chloride (K-Dur 20 Meq Er Tab) 20 meq PO DAILY [facility] Last Admin: 03/12/17 12:44 Dose: 20 meq Pyridostigmine [place] (Mestinon Tab) 60 mg PO TID [facility] Last Admin: 03/12/17 17:20 Dose: 60 mg - Labs Labs: 03/11/17 12:11 03/13/17 08:13 - Constitutional Appears: Non-toxic, No Acute Distress - Extremities Exam Additional comments: BL lower ext exam: VASC- pedal pulses faintly palpable, cft >4 sec to all digits, chronic lymphadema DERM- right heel ulcer resolved, left heel is intact with no lesions NEURO- pedal sensation somewhat diminished ORTHO- slight tenderness to palp bl heels - Neurological Exam Neurological Exam: absent: Alert, Awake (is arouable to verbal stimuli ) - Psychiatric Exam Psychiatric exam: Normal Affect, Normal Mood Assessment and Plan - Assessment and Plan (Free Text) Assessment: 76 yo female patient w/ chronic lymphadema to lower extremities, resolved right foot ulcer Plan: Pt S&E at bedside Discussed with Dr. Thompson Chart, labs and vitals reviewed c/w with bid application of lachydrin by nursing to legs/feet c/w offloading boots to b/l feet stable per podiatry will follow
[2017-03-13] MEDS: Potassium Chloride 20 mEq ER Tab PO SCH ×3 (11:22→17:26)
--- NOTE | 2017-03-13 11:23 | CP.PCM.PN ---
Subjective - Date & Time of Evaluation Date of Evaluation: 03/13/17 Time of Evaluation: 09:00 - Subjective Subjective: blood cultures repeated Objective - Vital Signs/Intake and Output Vital Signs (last 24 hours): Temp Pulse Resp BP Pulse Ox 97.4 F L 77 20 137/79 97 03/13/17 07:00 03/13/17 07:00 03/13/17 07:00 03/13/17 11:14 03/13/17 07:00 - Medications Medications: Current Medications Acetaminophen/Codeine Phosphate (Tylenol/Codeine 300 Mg/30 Mg) 1 ea PO Q4 PRN PRN Reason: Pain, moderate (4-7) Last Admin: 03/12/17 03:39 Dose: 1 ea Albuterol Sulfate (Albuterol 0.042% Inhal Tricia (1.25mg/3ml) Ud) 1.25 mg INH RQ8 JOSIE Last Admin: 03/13/17 07:32 Dose: Not Given Calcium/Vitamin D (Oscal-D 250 Mg-125 Units Tab) 1 tab PO DAILY [facility] Last Admin: 03/13/17 11:13 Dose: 1 tab Ferrous Sulfate (Feosol) 325 mg PO DAILY [facility] Last Admin: 03/13/17 11:13 Dose: 325 mg Folic Acid (Folic Acid) 1 mg PO DAILY [facility] Last Admin: 03/13/17 11:16 Dose: 1 mg Furosemide (Lasix) 40 mg PO DAILY [facility] Last Admin: 03/13/17 11:14 Dose: 40 mg Metronidazole (Flagyl) 500 mg in 100 mls @ 100 mls/hr IVPB Q8H [facility] Last Admin: 03/13/17 11:14 Dose: 100 mls/hr Tigecycline 50 mg/ Dextrose 100 mls @ 100 mls/hr IVPB Q12H [facility] Last Admin: 03/13/17 00:10 Dose: 100 mls/hr Insulin Glargine (Lantus) 8 unit SC HS [facility] Last Admin: 03/12/17 22:11 Dose: 8 units Insulin Human Regular (Novolin R) 0 unit SC ACHS JOSIE PRN Reason: Protocol Last Admin: 03/13/17 08:04 Dose: Not Given Lactic Acid (Lac-Hydrin 12% Lotion (225 G)) 0 gm EXT BID [facility] Last Admin: 03/13/17 11:16 Dose: Not Given Loperamide HCl (Imodium) 2 mg PO Q4H PRN PRN Reason: Diarrhea Lorazepam (Ativan) 0.5 mg PO HS PRN PRN Reason: Anxiety Last Admin: 03/10/17 03:45 Dose: 0.5 mg Magnesium Hydroxide (Milk Of Magnesia) 30 ml PO DAILY PRN PRN Reason: Constipation Last Admin: 03/12/17 19:04 Dose: 30 ml Multivitamins (Hexavitamin) 1 tab PO DAILY [facility] Last Admin: 03/13/17 11:13 Dose: 1 tab Potassium Chloride (K-Dur 20 Meq Er Tab) 20 meq PO DAILY [facility] Last Admin: 03/13/17 11:22 Dose: Not Given Pyridostigmine [place] (Mestinon Tab) 60 mg PO TID [facility] Last Admin: 03/13/17 11:20 Dose: 60 mg - Labs Labs: 03/11/17 12:11 03/13/17 08:13 Assessment and Plan (1) Myelodysplasia (myelodysplastic syndrome) Status: Acute (2) Severe anemia Status: Acute (3) Acute on chronic diastolic (congestive) heart failure Status: Acute (4) Anemia Status: Acute (5) Degenerative disc disease at L5-S1 level Status: Acute (6) Dehydration Status: Acute (7) Diabetes mellitus type 2 in obese Status: Acute (8) Carbapenem-resistant bacterial infection Status: Acute (9) Carbapenem-resistant bacterial infection Status: Acute
--- NOTE | 2017-03-13 11:31 | PN ---
DATE: 03/13/2017 TIME OF EVALUATION: 06:45 a.m. NEUROLOGIC PROBLEM: Clinical myasthenia gravis and incidental right falx meningioma with vasogenic edema as per the CAT scan. PHYSICAL EXAMINATION: VITAL SIGNS: Blood pressure 126/72, mean arterial pressure of 90, respiratory rate 16, temperature 97.4, heart rate is 80 and regular. The patient is somewhat better as per this patient's statement following medication. However, clinically, the examination has not changed including right ptosis, external abdominal plegia, mild bulbar dysfunction, generalized weakness of the arm. However respiratory status is somewhat improved to compare with yesterday. The patient was given Mestinon 60 mg 3 times a day. The patient is tolerating it well. Serological workup pending. CT of the chest to rule out is also pending. Incidental right frontal meningioma, it is asymptomatic at present. The patient denies any headache from this. The patient does not show any change in mental status or any seizure episodes. I would like to leave it like this for now until the patient is medically stabilized. Continue Mestinon for now. Offending agents has been stopped. We will follow the acetylcholine receptor antibody to see if it is significantly high. I strongly recommend her to have plasma exchange. Javad Cota MD MTDDagmar
[2017-03-13 11:59] LABS: MEAN CORPUSCULAR HEMOGLOBIN 30.4 pg (27.0-31.0); RED CELL DISTRIBUTION WIDTH 22.6 % (11.5-14.5)
[2017-03-13 12:04] LABS: HEMATOCRIT 26.3 % (34.0-47.0); MEAN CELL VOLUME 95.5 fL (81.0-99.0); MEAN CORPUSCULAR HGB CONC 31.9 g/dL (33.0-37.0); MEAN PLATELET VOLUME 12.9 fL (7.2-11.7)
[2017-03-13 12:05] LABS: WHITE BLOOD COUNT 17.5 K/uL (4.8-10.8)
[2017-03-13 12:43] LABS: ALB/GLOB RATIO 0.4 (1.0-2.1); ALT/SGPT 41 U/L (9-52); AST/SGOT 28 U/L (14-36); BILIRUBIN,TOTAL 0.8 mg/dL (0.2-1.3); BLOOD UREA NITROGEN 15 mg/dL (7-17); CALCIUM 7.9 mg/dl (8.6-10.4); CARBON DIOXIDE 27 mmol/L (22-30); CHLORIDE 110 mmol/L (98-107); GFR AFRICAN-AMERICAN > 60; GLUCOSE,RANDOM 93 mg/dL (65-105); POTASSIUM 3.5 mmol/L (3.6-5.2); SODIUM 142 mmol/L (132-148); TOTAL PROTEIN 7.2 g/dL (6.3-8.3)
[2017-03-13 12:51] LABS: ALKALINE PHOSPHATASE 555 U/L (38-126)
[2017-03-13 12:58] LABS: LYMPH # 3.2 K/uL (1.0-4.3); MONO # 3.5 K/uL (0.0-0.8)
[2017-03-13] MEDS: Magnesium Oxide 400 mg Tab UD PO SCH (13:05)
--- NOTE | 2017-03-13 15:38 | CP.PCM.CON ---
<Nusrat Wright - Last Filed: 03/13/17 15:34> History of Present Illness - History of Present Illness History of Present Illness: Gastroenterology Fellow/PGY5 Consult Note 76 year old female with history of Emphysema, Grade I diastolic dysfunction, EF 65% 02/2017, Hypertension, Hyperlipidemia, Diabetes, and myelodysplasia syndrome presenting with shortness of breath, shoulder pain, and weakness. Patient describes main complaint of shoulder pain and weakness. She also notes chronic need for slow mastication to avoid nausea and vomiting. Since admission , active treatment of K. pneumoniae bacteremia and neurology workup for possible myasthenia gravis. She was notes to have a episode of dark vomitus reported to be concerning for maroon discoloration and upper GI bleed. She has since tolerated clear liquids. Denies further recurrent nausea, vomiting, abdominal pain, distension, diarrhea, constipation, melena, hematochezia, or unintentional weight loss. No prior EGD or colonoscopy. Family- denies colon cancer Social -denies tobacco, alcohol, illicit drug use Surgery- right Subclavian port-a-cath, tonsillectomy, cholecystectomy Review of Systems - Review of Systems Review of Systems: 12-point review of systems negative except for as above Past Patient History - Infectious Disease Hx of Infectious Diseases: None - Tetanus Immunizations Tetanus Immunization: Unknown, Up to Date - Past Medical History & Family History Past Medical History?: Yes - Past Social History Smoking Status: Never Smoked Chewing Tobacco Use: No Cigar Use: No Alcohol: None Drugs: Denies Home Situation {Lives}: With Family - CARDIAC Hx Congestive Heart Failure: Yes Hx Hypertension: Yes - PULMONARY Hx Chronic Obstructive Pulmonary Disease (COPD): Yes (EMPHYSEMA) - NEUROLOGICAL Hx Neurological Disorder: No Hx Vertigo: Yes - HEENT Hx HEENT Problems: No - RENAL Hx Chronic Kidney Disease: No - ENDOCRINE/METABOLIC Hx Diabetes Mellitus Type 2: Yes - HEMATOLOGICAL/ONCOLOGICAL Hx Anemia: Yes Hx Blood Transfusions: Yes - INTEGUMENTARY Hx Dermatological Problems: No Other/Comment: BLE w/ cauliflowered skin - MUSCULOSKELETAL/RHEUMATOLOGICAL Hx Arthritis: Yes (NECK, L SH; B/L KNEES) - GASTROINTESTINAL Hx Gastritis: Yes - GENITOURINARY/GYNECOLOGICAL Hx Genitourinary Disorders: No Para: 2 - PSYCHIATRIC Hx Physical Abuse: No Hx Schizophrenia: No Hx Sexual Abuse: No Hx Substance Use: No - SURGICAL HISTORY Hx Cholecystectomy: Yes (in 2010) Hx Tonsillectomy: Yes (8yrs old) - ANESTHESIA Hx Anesthesia: Yes Hx Anesthesia Reactions: No Hx Malignant Hyperthermia: No Meds Allergies/Adverse Reactions: Allergies Allergy/AdvReac Type Severity Reaction Status Date / Time Gadolinium-Containing Allergy ITCHING Verified 12/13/16 15:45 Contrast Medi - Medications Medications: Current Medications Acetaminophen/Codeine Phosphate (Tylenol/Codeine 300 Mg/30 Mg) 1 ea PO Q4 PRN PRN Reason: Pain, moderate (4-7) Last Admin: 03/12/17 03:39 Dose: 1 ea Albuterol Sulfate (Albuterol 0.042% Inhal Tricia (1.25mg/3ml) Ud) 1.25 mg INH RQ8 [facility] Last Admin: 03/13/17 07:32 Dose: Not Given Calcium/Vitamin D (Oscal-D 250 Mg-125 Units Tab) 1 tab PO DAILY [facility] Last Admin: 03/13/17 11:13 Dose: 1 tab Famotidine (Pepcid) 20 mg IVP Q12 [facility] Ferrous Sulfate (Feosol) 325 mg PO DAILY [facility] Last Admin: 03/13/17 11:13 Dose: 325 mg Folic Acid (Folic Acid) 1 mg PO DAILY [facility] Last Admin: 03/13/17 11:16 Dose: 1 mg Furosemide (Lasix) 40 mg PO DAILY [facility] Last Admin: 03/13/17 11:14 Dose: 40 mg Metronidazole (Flagyl) 500 mg in 100 mls @ 100 mls/hr IVPB Q8H [facility] Last Admin: 03/13/17 11:14 Dose: 100 mls/hr Tigecycline 50 mg/ Dextrose 100 mls @ 100 mls/hr IVPB Q12H [facility] Last Admin: 03/13/17 12:09 Dose: 100 mls/hr Insulin Glargine (Lantus) 8 unit SC HS [facility] Last Admin: 03/12/17 22:11 Dose: 8 units Insulin Human Regular (Novolin R) 0 unit SC ACHS [facility] PRN Reason: Protocol Last Admin: 03/13/17 12:00 Dose: Not Given Lactic Acid (Lac-Hydrin 12% Lotion (225 G)) 0 gm EXT BID [facility] Last Admin: 03/13/17 11:16 Dose: Not Given Loperamide HCl (Imodium) 2 mg PO Q4H PRN PRN Reason: Diarrhea Lorazepam (Ativan) 0.5 mg PO HS PRN PRN Reason: Anxiety Last Admin: 03/10/17 03:45 Dose: 0.5 mg Magnesium Oxide (Mag-Ox) 400 mg PO DAILY [facility] Last Admin: 03/13/17 13:05 Dose: 400 mg Multivitamins (Hexavitamin) 1 tab PO DAILY [facility] Last Admin: 03/13/17 11:13 Dose: 1 tab Potassium Chloride (K-Dur 20 Meq Er Tab) 20 meq PO DAILY [facility] Last Admin: 03/13/17 11:22 Dose: Not Given Potassium Chloride (K-Dur 20 Meq Er Tab) 20 meq PO DAILY [facility] Stop: 03/13/17 18:01 Pyridostigmine Hermon (Mestinon Tab) 60 mg PO TID [facility] Last Admin: 03/13/17 14:08 Dose: 60 mg Physical Exam - Constitutional Appears: Non-toxic, No Acute Distress, Chronically Ill - Head Exam Head Exam: ATRAUMATIC, NORMOCEPHALIC - Eye Exam Eye Exam: EOMI, PERRL Pupil Exam: PERRL. absent: Miosis, Mydriatic Additional comments: right lidlag, conjunctival injection and edema - ENT Exam ENT Exam: Mucous Membranes Moist, Normal Oropharynx - Neck Exam Neck exam: Positive for: Normal Inspection - Respiratory Exam Respiratory Exam: Clear to Auscultation Bilateral. absent: Rales, Rhonchi, Wheezes - Cardiovascular Exam Cardiovascular Exam: RRR, +S1, +S2. absent: Gallop, Rubs - GI/Abdominal Exam GI & Abdominal Exam: Normal Bowel Sounds, Soft. absent: Distended, Firm, Guarding, Organomegaly, Rebound, Rigid, Tenderness - Rectal Exam Rectal Exam: absent: Black Stool, Bloody Stool, Hemorrhoids Additional comments: perianal skin erythema, loose dark orange-brown stool in rectal vault - Extremities Exam Extremities exam: Positive for: pedal edema Additional comments: chronic lymphedema,bunny boots present, chronic skin changes in setting of diabetes - Neurological Exam Neurological exam: Alert - Psychiatric Exam Psychiatric exam: Normal Affect, Normal Mood - Skin Skin Exam: Dry, Intact, Normal Color, Warm Results - Vital Signs Recent Vital Signs: Last Vital Signs Temp 97.4 F L 03/13/17 07:00 Pulse 77 03/13/17 07:00 Resp 20 03/13/17 07:00 BP 118/70 03/13/17 13:05 Pulse Ox 97 03/13/17 07:00 - Labs Result Diagrams: 03/13/17 11:54 03/13/17 11:54 Labs: Laboratory Results - last 24 hr 03/12/17 03/12/17 03/12/17 07:57 07:57 07:57 WBC RBC Hgb Hct MCV MCH MCHC RDW Plt Count MPV Neut % (Auto) Lymph % (Auto) Otero % (Auto) Eos % (Auto) Baso % (Auto) Neut # Lymph # Otero # Eos # Baso # Sodium Potassium Chloride Carbon Dioxide Anion Gap BUN Creatinine Est GFR ( Amer) Est GFR (Non-Af Amer) POC Glucose (mg/dL) Random Glucose Calcium Ionized Calcium 5.7 H Total Bilirubin AST ALT Alkaline Phosphatase Total Protein Albumin Globulin Albumin/Globulin Ratio RPR Nonreactive Antibody Titer TEST NOT PERFORMED 03/12/17 03/12/17 03/13/17 15:50 21:30 06:50 WBC RBC Hgb Hct MCV MCH MCHC RDW Plt Count MPV Neut % (Auto) Lymph % (Auto) Otero % (Auto) Eos % (Auto) Baso % (Auto) Neut # Lymph # Otero # Eos # Baso # Sodium Potassium Chloride Carbon Dioxide Anion Gap BUN Creatinine Est GFR ( Amer) Est GFR (Non-Af Amer) POC Glucose (mg/dL) 169 H 151 H 121 H Random Glucose Calcium Ionized Calcium Total Bilirubin AST ALT Alkaline Phosphatase Total Protein Albumin Globulin Albumin/Globulin Ratio RPR Antibody Titer 03/13/17 03/13/17 03/13/17 08:13 11:05 11:54 WBC 17.5 H RBC 2.76 L Hgb 8.4 L Hct 26.3 L MCV 95.5 MCH 30.4 MCHC 31.9 L RDW 22.6 H Plt Count 19 L* MPV 12.9 H Neut % (Auto) 62.0 Lymph % (Auto) 18.0 L Otero % (Auto) 20.0 H Eos % (Auto) 0.0 Baso % (Auto) 0.0 Neut # 11.0 H Lymph # 3.2 Otero # 3.5 H Eos # 0.0 Baso # 0.0 Sodium 141 Potassium 3.3 L Chloride 109 H Carbon Dioxide 27 Anion Gap 8 L BUN 16 Creatinine 1.0 Est GFR ( Amer) > 60 Est GFR (Non-Af Amer) 54 POC Glucose (mg/dL) 98 Random Glucose 98 Calcium 7.6 L Ionized Calcium Total Bilirubin AST ALT Alkaline Phosphatase Total Protein Albumin Globulin Albumin/Globulin Ratio RPR Antibody Titer 03/13/17 11:54 WBC RBC Hgb Hct MCV MCH MCHC RDW Plt Count MPV Neut % (Auto) Lymph % (Auto) Otero % (Auto) Eos % (Auto) Baso % (Auto) Neut # Lymph # Otero # Eos # Baso # Sodium 142 Potassium 3.5 L Chloride 110 H Carbon Dioxide 27 Anion Gap 8 L BUN 15 Creatinine 1.0 Est GFR ( Amer) > 60 Est GFR (Non-Af Amer) 54 POC Glucose (mg/dL) Random Glucose 93 Calcium 7.9 L Ionized Calcium Total Bilirubin 0.8 AST 28 ALT 41 Alkaline Phosphatase 555 H D Total Protein 7.2 Albumin 2.0 L Globulin 5.2 H Albumin/Globulin Ratio 0.4 L RPR Antibody Titer Assessment & Plan - Assessment and Plan (Free Text) Assessment: 76 year old female with history of Emphysema, Grade I diastolic dysfunction, EF 65% 02/2017, Hypertension, Hyperlipidemia, Diabetes, and myelodysplasia syndrome presenting with shortness of breath, shoulder pain, and weakness. Active treatment of K. pneumoniae bacteremia and neurology workup for possible myasthenia gravis. GI consultation for concern of upper GI bleed. No prior EGD or colonoscopy. Plan: >chronic normocytic anemia, at baseline >hemodynamically stable >rectal- orangebrowns tool, >no signs of overt GI blood loss >thrombocytopenia, to receive transfusion for port removal tomorrow >monitor H/H >monitor for recurrent overt GI blood loss >[id number] insetting of thrombocytopenia >clear liquid diet as tolerated >no indication for emergent/urgent endoscopic evaluation >will continue to monitor <Ag Holguin - Last Filed: 03/13/17 15:55> Meds - Medications Medications: Current Medications Acetaminophen/Codeine Phosphate (Tylenol/Codeine 300 Mg/30 Mg) 1 ea PO Q4 PRN PRN Reason: Pain, moderate (4-7) Last Admin: 03/12/17 03:39 Dose: 1 ea Albuterol Sulfate (Albuterol 0.042% Inhal Tricia (1.25mg/3ml) Ud) 1.25 mg INH RQ8 [facility] Last Admin: 03/13/17 07:32 Dose: Not Given Calcium/Vitamin D (Oscal-D 250 Mg-125 Units Tab) 1 tab PO DAILY [facility] Last Admin: 03/13/17 11:13 Dose: 1 tab Famotidine (Pepcid) 20 mg IVP DAILY [facility] Ferrous Sulfate (Feosol) 325 mg PO DAILY [facility] Last Admin: 03/13/17 11:13 Dose: 325 mg Folic Acid (Folic Acid) 1 mg PO DAILY [facility] Last Admin: 03/13/17 11:16 Dose: 1 mg Furosemide (Lasix) 40 mg PO DAILY [facility] Last Admin: 03/13/17 11:14 Dose: 40 mg Metronidazole (Flagyl) 500 mg in 100 mls @ 100 mls/hr IVPB Q8H [facility] Last Admin: 03/13/17 11:14 Dose: 100 mls/hr Tigecycline 50 mg/ Dextrose 100 mls @ 100 mls/hr IVPB Q12H [facility] Last Admin: 03/13/17 12:09 Dose: 100 mls/hr Insulin Glargine (Lantus) 8 unit SC HS [facility] Last Admin: 03/12/17 22:11 Dose: 8 units Insulin Human Regular (Novolin R) 0 unit SC ACHS [facility] PRN Reason: Protocol Last Admin: 03/13/17 12:00 Dose: Not Given Lactic Acid (Lac-Hydrin 12% Lotion (225 G)) 0 gm EXT BID [facility] Last Admin: 03/13/17 11:16 Dose: Not Given Loperamide HCl (Imodium) 2 mg PO Q4H PRN PRN Reason: Diarrhea Lorazepam (Ativan) 0.5 mg PO HS PRN PRN Reason: Anxiety Last Admin: 03/10/17 03:45 Dose: 0.5 mg Magnesium Oxide (Mag-Ox) 400 mg PO DAILY [facility] Last Admin: 03/13/17 13:05 Dose: 400 mg Multivitamins (Hexavitamin) 1 tab PO DAILY [facility] Last Admin: 03/13/17 11:13 Dose: 1 tab Potassium Chloride (K-Dur 20 Meq Er Tab) 20 meq PO DAILY [facility] Last Admin: 03/13/17 11:22 Dose: Not Given Potassium Chloride (K-Dur 20 Meq Er Tab) 20 meq PO DAILY [facility] Stop: 03/13/17 18:01 Pyridostigmine Hermon (Mestinon Tab) 60 mg PO TID [facility] Last Admin: 03/13/17 14:08 Dose: 60 mg Results - Vital Signs Recent Vital Signs: Last Vital Signs Temp 98.4 F 03/13/17 15:41 Pulse 78 03/13/17 15:41 Resp 20 03/13/17 15:41 BP 141/84 03/13/17 15:41 Pulse Ox 98 03/13/17 15:41 - Labs Result Diagrams: 03/13/17 11:54 03/13/17 11:54 Labs: Laboratory Results - last 24 hr 03/12/17 03/12/17 03/12/17 07:57 07:57 07:57 WBC RBC Hgb Hct MCV MCH MCHC RDW Plt Count MPV Neut % (Auto) Lymph % (Auto) Otero % (Auto) Eos % (Auto) Baso % (Auto) Neut # Lymph # Otero # Eos # Baso # Sodium Potassium Chloride Carbon Dioxide Anion Gap BUN Creatinine Est GFR ( Amer) Est GFR (Non-Af Amer) POC Glucose (mg/dL) Random Glucose Calcium Ionized Calcium 5.7 H Total Bilirubin AST ALT Alkaline Phosphatase Total Protein Albumin Globulin Albumin/Globulin Ratio RPR Nonreactive Antibody Titer TEST NOT PERFORMED 03/12/17 03/12/17 03/13/17 15:50 21:30 06:50 WBC RBC Hgb Hct MCV MCH MCHC RDW Plt Count MPV Neut % (Auto) Lymph % (Auto) Otero % (Auto) Eos % (Auto) Baso % (Auto) Neut # Lymph # Otero # Eos # Baso # Sodium Potassium Chloride Carbon Dioxide Anion Gap BUN Creatinine Est GFR ( Amer) Est GFR (Non-Af Amer) POC Glucose (mg/dL) 169 H 151 H 121 H Random Glucose Calcium Ionized Calcium Total Bilirubin AST ALT Alkaline Phosphatase Total Protein Albumin Globulin Albumin/Globulin Ratio RPR Antibody Titer 03/13/17 03/13/17 03/13/17 08:13 11:05 11:54 WBC 17.5 H RBC 2.76 L Hgb 8.4 L Hct 26.3 L MCV 95.5 MCH 30.4 MCHC 31.9 L RDW 22.6 H Plt Count 19 L* MPV 12.9 H Neut % (Auto) 62.0 Lymph % (Auto) 18.0 L Otero % (Auto) 20.0 H Eos % (Auto) 0.0 Baso % (Auto) 0.0 Neut # 11.0 H Lymph # 3.2 Otero # 3.5 H Eos # 0.0 Baso # 0.0 Sodium 141 Potassium 3.3 L Chloride 109 H Carbon Dioxide 27 Anion Gap 8 L BUN 16 Creatinine 1.0 Est GFR ( Amer) > 60 Est GFR (Non-Af Amer) 54 POC Glucose (mg/dL) 98 Random Glucose 98 Calcium 7.6 L Ionized Calcium Total Bilirubin AST ALT Alkaline Phosphatase Total Protein Albumin Globulin Albumin/Globulin Ratio RPR Antibody Titer 03/13/17 11:54 WBC RBC Hgb Hct MCV MCH MCHC RDW Plt Count MPV Neut % (Auto) Lymph % (Auto) Otero % (Auto) Eos % (Auto) Baso % (Auto) Neut # Lymph # Otero # Eos # Baso # Sodium 142 Potassium 3.5 L Chloride 110 H Carbon Dioxide 27 Anion Gap 8 L BUN 15 Creatinine 1.0 Est GFR ( Amer) > 60 Est GFR (Non-Af Amer) 54 POC Glucose (mg/dL) Random Glucose 93 Calcium 7.9 L Ionized Calcium Total Bilirubin 0.8 AST 28 ALT 41 Alkaline Phosphatase 555 H D Total Protein 7.2 Albumin 2.0 L Globulin 5.2 H Albumin/Globulin Ratio 0.4 L RPR Antibody Titer Attending/Attestation - Attestation I have personally seen and examined this patient.: Yes I have fully participated in the care of the patient.: Yes I have reviewed all pertinent clinical information: Yes Notes (Text): 03/13/17 15:48 I have seen and examined patient with GI fellow. Agree with above documentation with the following additions. In brief, this is a 76 year old female with medical history of MDS, HTN, CHF, DM who was initially admitted to hospital for evaluation of weakness and shoulder discomfort. Her hospital course has been complicated by development of bacteremia and occular disturbances. GI called for episode of coffee ground emesis earlier this morning. She claims that she was eating food too quickly which caused her to vomit and denies any current abdominal pain, fever/chills, weight loss, melena, or change in bowel habits. No prior similar episodes or no previous endoscopic evaluation. Since the vomiting episode she has been tolerating PO liquids without difficulty. MDS - anemia and thrombocytopenia HTN CHF DM Sepsis - chronic heel ulceration, bacteremia Vomiting, coffee ground emesis - Clear liquid diet as tolerated - H/H stable, continue to monitor. Rectal exam performed today shows dark brown stool in rectal vault. - Continue with antibiotic therapy as per ID - Patient planned for chest port removal tomorrow for possible source of bacteremia, follow up surgical recommendations - Would ideally begin patient on PPI therapy, though given profound thrombocytopenia, would suggest IV H2 marisol therapy - Anti-emetic therapy PRN - Currently no indication for GI intervention, patient is high risk for procedure related bleeding given thrombocytopenia. Will continue with supportive care for time being and continue to monitor patient clinical course.
--- NOTE | 2017-03-13 16:57 | PN ---
SUBJECTIVE: The patient is alert and oriented. She is afebrile. PHYSICAL EXAMINATION: VITAL SIGNS: Blood pressure 136/78, pulse is 77 per minute, respirations 20 per minute, hemoglobin oxygen saturation 97%. GENERAL: She is not in distress. CHEST: There is no dyspnea. No chest pain while she is sitting and standard Marshall position in her bed. HEART: Regular. There is no gallop rhythm. LUNGS: Diminished breath sounds. Rhonchi decreased. ABDOMEN: Soft. EXTREMITIES: Legs: Hyperpigmented scaly skin bilaterally present. She has been seen by oncologist and Infectious Disease specialist as well as flotation operator. LABORATORY DATA: Her white count today is 17,500, hemoglobin 8.4, platelet count 19,000. Serum sodium 141, potassium 3.3, chloride 109, and carbon dioxide 8, BUN 16, creatinine 1, blood sugar 98. IMPRESSION: Respiratory insufficiency, exacerbation of chronic obstructive pulmonary disease, hypertension, cardiovascular disease, diabetes mellitus, severe anemia, myelodysplasia syndrome. PLAN: To continue with the current management including antibiotics, albuterol, oxygen, and pyridostigmine, and need Oncology followup as well as ID and Neurology followup. We will give her potassium chloride and follow with serum potassium level check up. In view of the pulmonary congestion seen on chest x-ray, she will resume her Lasix. We will follow the patient with chest x-ray as well. Abundio Silva MD MTDD
[2017-03-13] MEDS ORDERED: Potassium Chloride 20 mEq/15 ml LIQ UD PO ONE (18:03)
--- NOTE | 2017-03-13 19:05 | CP.PCM.PN ---
Subjective - Date & Time of Evaluation Date of Evaluation: 03/13/17 Time of Evaluation: 19:02 - Subjective Subjective: The patient is drowsy, awakens, follows commands, poor po intake, scheduled for port removal tomorrow depending on results of platelet count. Objective - Vital Signs/Intake and Output Vital Signs (last 24 hours): Temp Pulse Resp BP Pulse Ox 98.4 F 78 20 141/84 98 03/13/17 15:41 03/13/17 15:41 03/13/17 15:41 03/13/17 15:41 03/13/17 15:41 Intake and Output: 03/13/17 03/14/17 18:59 06:59 Intake Total 380 Balance 380 - Medications Medications: Current Medications Acetaminophen/Codeine Phosphate (Tylenol/Codeine 300 Mg/30 Mg) 1 ea PO Q4 PRN PRN Reason: Pain, moderate (4-7) Last Admin: 03/12/17 03:39 Dose: 1 ea Albuterol Sulfate (Albuterol 0.042% Inhal Tricia (1.25mg/3ml) Ud) 1.25 mg INH RQ8 [facility] Last Admin: 03/13/17 16:39 Dose: 1.25 mg Calcium/Vitamin D (Oscal-D 250 Mg-125 Units Tab) 1 tab PO DAILY [facility] Last Admin: 03/13/17 11:13 Dose: 1 tab Famotidine (Pepcid) 20 mg IVP DAILY [facility] Last Admin: 03/13/17 18:33 Dose: 20 mg Ferrous Sulfate (Feosol) 325 mg PO DAILY [facility] Last Admin: 03/13/17 11:13 Dose: 325 mg Folic Acid (Folic Acid) 1 mg PO DAILY [facility] Last Admin: 03/13/17 11:16 Dose: 1 mg Furosemide (Lasix) 40 mg PO DAILY [facility] Last Admin: 03/13/17 11:14 Dose: 40 mg Metronidazole (Flagyl) 500 mg in 100 mls @ 100 mls/hr IVPB Q8H [facility] Last Admin: 03/13/17 17:22 Dose: 100 mls/hr Tigecycline 50 mg/ Dextrose 100 mls @ 100 mls/hr IVPB Q12H [facility] Last Admin: 03/13/17 12:09 Dose: 100 mls/hr Insulin Glargine (Lantus) 8 unit SC HS [facility] Last Admin: 03/12/17 22:11 Dose: 8 units Insulin Human Regular (Novolin R) 0 unit SC ACHS [facility] PRN Reason: Protocol Last Admin: 03/13/17 16:38 Dose: Not Given Lactic Acid (Lac-Hydrin 12% Lotion (225 G)) 0 gm EXT BID [facility] Last Admin: 03/13/17 17:23 Dose: 1 applic Loperamide HCl (Imodium) 2 mg PO Q4H PRN PRN Reason: Diarrhea Lorazepam (Ativan) 0.5 mg PO HS PRN PRN Reason: Anxiety Last Admin: 03/10/17 03:45 Dose: 0.5 mg Magnesium Oxide (Mag-Ox) 400 mg PO DAILY [facility] Last Admin: 03/13/17 13:05 Dose: 400 mg Multivitamins (Hexavitamin) 1 tab PO DAILY [facility] Last Admin: 03/13/17 11:13 Dose: 1 tab Potassium Chloride (K-Dur 20 Meq Er Tab) 20 meq PO DAILY [facility] Last Admin: 03/13/17 11:22 Dose: Not Given Pyridostigmine [place] (Mestinon Tab) 60 mg PO TID [facility] Last Admin: 03/13/17 17:23 Dose: 60 mg - Labs Labs: 03/13/17 11:54 03/13/17 11:54 Assessment and Plan (1) Myelodysplasia (myelodysplastic syndrome) Assessment & Plan: Pancytopenia, stable, will transfuse platelets prior to procedure tomorrow Status: Acute
[2017-03-13] MEDS: (Lantus) Insulin Glargine, Recombinant SC SCH (21:53)
--- NOTE | 2017-03-13 22:43 | CP.PCM.PN ---
Subjective - Date & Time of Evaluation Date of Evaluation: 03/13/17 Time of Evaluation: 13:25 - Subjective Subjective: Patient lethargic and fatigued. Platlet count 19,000 and Hct 26. Patient had an episode of vomiting with an upper GI bleed. Gastroenterology consult requested. Objective - Vital Signs/Intake and Output Vital Signs (last 24 hours): Temp Pulse Resp BP Pulse Ox 98.4 F 78 20 141/84 98 03/13/17 15:41 03/13/17 15:41 03/13/17 15:41 03/13/17 15:41 03/13/17 15:41 Intake and Output: 03/13/17 03/14/17 18:59 06:59 Intake Total 380 0 Balance 380 0 - Medications Medications: Current Medications Acetaminophen/Codeine Phosphate (Tylenol/Codeine 300 Mg/30 Mg) 1 ea PO Q4 PRN PRN Reason: Pain, moderate (4-7) Last Admin: 03/12/17 03:39 Dose: 1 ea Albuterol Sulfate (Albuterol 0.042% Inhal Tricia (1.25mg/3ml) Ud) 1.25 mg INH RQ8 [facility] Last Admin: 03/13/17 16:39 Dose: 1.25 mg Calcium/Vitamin D (Oscal-D 250 Mg-125 Units Tab) 1 tab PO DAILY [facility] Last Admin: 03/13/17 11:13 Dose: 1 tab Famotidine (Pepcid) 20 mg IVP DAILY [facility] Last Admin: 03/13/17 18:33 Dose: 20 mg Ferrous Sulfate (Feosol) 325 mg PO DAILY [facility] Last Admin: 03/13/17 11:13 Dose: 325 mg Folic Acid (Folic Acid) 1 mg PO DAILY [facility] Last Admin: 03/13/17 11:16 Dose: 1 mg Furosemide (Lasix) 40 mg PO DAILY [facility] Last Admin: 03/13/17 11:14 Dose: 40 mg Metronidazole (Flagyl) 500 mg in 100 mls @ 100 mls/hr IVPB Q8H [facility] Last Admin: 03/13/17 17:22 Dose: 100 mls/hr Tigecycline 50 mg/ Dextrose 100 mls @ 100 mls/hr IVPB Q12H [facility] Last Admin: 03/13/17 12:09 Dose: 100 mls/hr Insulin Glargine (Lantus) 8 unit SC [facility] Last Admin: 03/13/17 21:53 Dose: 8 units Insulin Human Regular (Novolin R) 0 unit SC ACHS [facility] PRN Reason: Protocol Last Admin: 03/13/17 21:50 Dose: Not Given Lactic Acid (Lac-Hydrin 12% Lotion (225 G)) 0 gm EXT BID [facility] Last Admin: 03/13/17 17:23 Dose: 1 applic Loperamide HCl (Imodium) 2 mg PO Q4H PRN PRN Reason: Diarrhea Lorazepam (Ativan) 0.5 mg PO HS PRN PRN Reason: Anxiety Last Admin: 03/10/17 03:45 Dose: 0.5 mg Magnesium Oxide (Mag-Ox) 400 mg PO DAILY [facility] Last Admin: 03/13/17 13:05 Dose: 400 mg Multivitamins (Hexavitamin) 1 tab PO DAILY [facility] Last Admin: 03/13/17 11:13 Dose: 1 tab Potassium Chloride (K-Dur 20 Meq Er Tab) 20 meq PO DAILY [facility] Last Admin: 03/13/17 11:22 Dose: Not Given Pyridostigmine [place] (Mestinon Tab) 60 mg PO TID [facility] Last Admin: 03/13/17 17:23 Dose: 60 mg - Labs Labs: 03/13/17 11:54 03/13/17 11:54 - Constitutional Appears: Chronically Ill - Head Exam Head Exam: NORMOCEPHALIC - Eye Exam Eye Exam: Normal appearance Pupil Exam: NORMAL ACCOMODATION - ENT Exam ENT Exam: Normal Exam - Neck Exam Neck Exam: Normal Inspection - Respiratory Exam Respiratory Exam: Decreased Breath Sounds - Cardiovascular Exam Cardiovascular Exam: REGULAR RHYTHM - GI/Abdominal Exam GI & Abdominal Exam: Soft - Rectal Exam Rectal Exam: Deferred - Exam External exam: NORMAL EXTERNAL EXAM - Extremities Exam Extremities Exam: Tenderness - Back Exam Back Exam: vertebral tenderness - Neurological Exam Neurological Exam: Oriented x3 - Psychiatric Exam Psychiatric exam: Depressed - Skin Skin Exam: Dry Assessment and Plan (1) Myelodysplasia (myelodysplastic syndrome) Status: Acute (2) Severe anemia Status: Acute (3) Degenerative disc disease at L5-S1 level Status: Acute (4) Osteoarthritis Status: Acute (5) Thrombocytopenia Status: Acute (6) Sepsis Status: Acute
[2017-03-14] MEDS: Tigecycline 50 MG in Dextrose 5% In Water 100 ML IVPB SCH ×2 (00:36→11:51)
[2017-03-14] MEDS: metroNIDAZOLE IV 500 mg/100 ml 500 MG/100 ML BAG IVPB SCH ×3 (02:11→18:53)
[2017-03-14] MEDS ORDERED: Dextrose 50% SYRINGE Inj (50 ml) IVP PRN (06:50)
--- NOTE | 2017-03-14 07:19 | CP.PCM.PN ---
<uNsrat Wright - Last Filed: 03/14/17 13:31> Subjective - Date & Time of Evaluation Date of Evaluation: 03/14/17 Time of Evaluation: 07:15 - Subjective Subjective: Gastroenterology Fellow/PGY5 Progress Note Patient resting comfortably. Tolerated clear liquid diet for dinner. No further episodes of vomiting. No bowel movements overnight. Nursing notes episode of hypoglycemia this morning. Remains NPO for port-a-cath removal today. A 12- point review of systems negative except for as above. Objective - Vital Signs/Intake and Output Vital Signs (last 24 hours): Temp Pulse Resp BP Pulse Ox 97.5 F L 78 20 122/70 98 03/14/17 00:30 03/14/17 00:30 03/13/17 23:23 03/14/17 00:30 03/13/17 23:18 Intake and Output: 03/14/17 03/14/17 06:59 18:59 Intake Total 504 Balance 504 - Medications Medications: Current Medications Acetaminophen/Codeine Phosphate (Tylenol/Codeine 300 Mg/30 Mg) 1 ea PO Q4 PRN PRN Reason: Pain, moderate (4-7) Last Admin: 03/12/17 03:39 Dose: 1 ea Albuterol Sulfate (Albuterol 0.042% Inhal Tricia (1.25mg/3ml) Ud) 1.25 mg INH RQ8 [facility] Last Admin: 03/13/17 23:49 Dose: Not Given Calcium/Vitamin D (Oscal-D 250 Mg-125 Units Tab) 1 tab PO DAILY [facility] Last Admin: 03/13/17 11:13 Dose: 1 tab Dextrose (Dextrose 50% Inj) 0 ml IVP .STAT PRN; Protocol PRN Reason: Hypoglycemia Protocol Last Admin: 03/14/17 06:59 Dose: 50 ml Famotidine (Pepcid) 20 mg IVP DAILY [facility] Last Admin: 03/13/17 18:33 Dose: 20 mg Ferrous Sulfate (Feosol) 325 mg PO DAILY [facility] Last Admin: 03/13/17 11:13 Dose: 325 mg Folic Acid (Folic Acid) 1 mg PO DAILY [facility] Last Admin: 03/13/17 11:16 Dose: 1 mg Furosemide (Lasix) 40 mg PO DAILY [facility] Last Admin: 03/13/17 11:14 Dose: 40 mg Metronidazole (Flagyl) 500 mg in 100 mls @ 100 mls/hr IVPB Q8H [facility] Last Admin: 03/14/17 02:11 Dose: 100 mls/hr Tigecycline 50 mg/ Dextrose 100 mls @ 100 mls/hr IVPB Q12H [facility] Last Admin: 03/14/17 00:36 Dose: 100 mls/hr Insulin Glargine (Lantus) 8 unit SC HS [facility] Last Admin: 03/13/17 21:53 Dose: 8 units Insulin Human Regular (Novolin R) 0 unit SC ACHS [facility] PRN Reason: Protocol Last Admin: 03/13/17 21:50 Dose: Not Given Lactic Acid (Lac-Hydrin 12% Lotion (225 G)) 0 gm EXT BID [facility] Last Admin: 03/13/17 17:23 Dose: 1 applic Loperamide HCl (Imodium) 2 mg PO Q4H PRN PRN Reason: Diarrhea Lorazepam (Ativan) 0.5 mg PO HS PRN PRN Reason: Anxiety Last Admin: 03/10/17 03:45 Dose: 0.5 mg Magnesium Oxide (Mag-Ox) 400 mg PO DAILY [facility] Last Admin: 03/13/17 13:05 Dose: 400 mg Multivitamins (Hexavitamin) 1 tab PO DAILY [facility] Last Admin: 03/13/17 11:13 Dose: 1 tab Potassium Chloride (K-Dur 20 Meq Er Tab) 20 meq PO DAILY [facility] Last Admin: 03/13/17 11:22 Dose: Not Given Pyridostigmine [place] (Mestinon Tab) 60 mg PO TID [facility] Last Admin: 03/13/17 17:23 Dose: 60 mg - Labs Labs: 03/13/17 11:54 03/13/17 11:54 - Constitutional Appears: Non-toxic, No Acute Distress - Head Exam Head Exam: ATRAUMATIC, NORMOCEPHALIC - Eye Exam Eye Exam: EOMI, PERRL Pupil Exam: PERRL. absent: Miosis, Mydriatic - ENT Exam ENT Exam: Mucous Membranes Moist, Normal Oropharynx - Neck Exam Neck Exam: Full ROM, Normal Inspection - Respiratory Exam Respiratory Exam: Clear to Ausculation Bilateral. absent: Rales, Rhonchi, Wheezes - Cardiovascular Exam Cardiovascular Exam: RRR, +S1, +S2. absent: Gallop, Rubs - GI/Abdominal Exam GI & Abdominal Exam: Soft, Normal Bowel Sounds. absent: Distended, Firm, Guarding, Rigid, Tenderness, Organomegaly, Rebound - Extremities Exam Extremities Exam: Pedal Edema Additional comments: chronic lymphedema, chronic B/L LE skin changes - Neurological Exam Neurological Exam: Alert, Awake - Psychiatric Exam Psychiatric exam: Normal Affect, Normal Mood - Skin Skin Exam: Dry, Intact, Normal Color, Warm Assessment and Plan - Assessment and Plan (Free Text) Assessment: 76 year old female with history of Emphysema, Grade I diastolic dysfunction, EF 65% 02/2017, Hypertension, Hyperlipidemia, Diabetes, and myelodysplasia syndrome (anemia, thrombocytopenia) presenting with shortness of breath, shoulder pain, and weakness. Active treatment of K. pneumoniae bacteremia and neurology workup for possible myasthenia gravis. GI consultation for coffee ground emesis concerning for upper GI bleed. No prior EGD or colonoscopy. Plan: >follow up H/H >hemodynamically stable >no signs of overt GI blood loss >surgery managing- port removal today >monitor for recurrent overt GI blood loss >continue H0wdthzza, holding PPI due to thrombocytopenia >at present, no indication endoscopic evaluation >will continue to monitor <Leonard Cadet - Last Filed: 03/15/17 09:28> Objective - Vital Signs/Intake and Output Vital Signs (last 24 hours): Temp Pulse Resp BP Pulse Ox 97.3 F L 63 20 130/79 100 03/15/17 07:10 03/15/17 07:10 03/15/17 07:10 03/15/17 07:10 03/15/17 07:10 - Medications Medications: Current Medications Acetaminophen/Codeine Phosphate (Tylenol/Codeine 300 Mg/30 Mg) 1 ea PO Q4 PRN PRN Reason: Pain, moderate (4-7) Last Admin: 03/12/17 03:39 Dose: 1 ea Albuterol Sulfate (Albuterol 0.042% Inhal Tricia (1.25mg/3ml) Ud) 1.25 mg INH RQ8 [facility] Last Admin: 03/15/17 07:33 Dose: 1.25 mg Calcium/Vitamin D (Oscal-D 250 Mg-125 Units Tab) 1 tab PO DAILY [facility] Last Admin: 03/14/17 10:52 Dose: 1 tab Dextrose (Dextrose 50% Inj) 0 ml IVP .STAT PRN; Protocol PRN Reason: Hypoglycemia Protocol Last Admin: 03/14/17 06:59 Dose: 50 ml Famotidine (Pepcid) 20 mg IVP DAILY [facility] Last Admin: 03/14/17 10:53 Dose: 20 mg Ferrous Sulfate (Feosol) 325 mg PO DAILY [facility] Last Admin: 03/14/17 10:52 Dose: 325 mg Folic Acid (Folic Acid) 1 mg PO DAILY [facility] Last Admin: 03/14/17 10:52 Dose: 1 mg Furosemide (Lasix) 40 mg PO DAILY [facility] Last Admin: 03/14/17 10:54 Dose: 40 mg Metronidazole (Flagyl) 500 mg in 100 mls @ 100 mls/hr IVPB Q8H [facility] Last Admin: 03/15/17 01:34 Dose: 100 mls/hr Tigecycline 50 mg/ Dextrose 100 mls @ 100 mls/hr IVPB Q12H [facility] Last Admin: 03/15/17 00:05 Dose: 100 mls/hr Insulin Glargine (Lantus) 8 unit SC HS [facility] Last Admin: 03/14/17 21:35 Dose: Not Given Insulin Human Regular (Novolin R) 0 unit SC ACHS [facility] PRN Reason: Protocol Last Admin: 03/15/17 07:24 Dose: Not Given Lactic Acid (Lac-Hydrin 12% Lotion (225 G)) 0 gm EXT BID [facility] Last Admin: 03/14/17 21:31 Dose: 1 applic Loperamide HCl (Imodium) 2 mg PO Q4H PRN PRN Reason: Diarrhea Lorazepam (Ativan) 0.5 mg PO HS PRN PRN Reason: Anxiety Last Admin: 03/10/17 03:45 Dose: 0.5 mg Magnesium Oxide (Mag-Ox) 400 mg PO DAILY [facility] Last Admin: 03/14/17 10:53 Dose: 400 mg Multivitamins (Hexavitamin) 1 tab PO DAILY [facility] Last Admin: 03/14/17 10:52 Dose: 1 tab Ofloxacin (Ocuflox Ophth 0.3%) 0 ml OD QID [facility] Last Admin: 03/14/17 22:26 Dose: Not Given Potassium Chloride (K-Dur 20 Meq Er Tab) 20 meq PO BID [facility] Last Admin: 03/14/17 21:31 Dose: 20 meq Prednisolone Acetate (Pred Forte 1% Opht Susp) 0 ml OD QID [facility] Last Admin: 03/14/17 22:26 Dose: Not Given Pyridostigmine [place] (Mestinon Tab) 60 mg PO TID [facility] Last Admin: 03/14/17 18:53 Dose: 60 mg Timolol Maleate (Timoptic 0.5% Ophth Soln) 1 drop OD BID [facility] Last Admin: 03/14/17 18:54 Dose: 1 drop - Labs Labs: 03/15/17 07:35 03/15/17 07:35 PT 25.1 SECONDS (9.7-12.2) H 03/14/17 10:56 INR 2.1 03/14/17 10:56 APTT 39 SECONDS (21-34) H 03/14/17 10:56 Attending/Attestation - Attestation I have personally seen and examined this patient.: Yes I have fully participated in the care of the patient.: Yes I have reviewed all pertinent clinical information, including history, physical exam and plan: Yes Notes (Text): 03/14/17 13:00 76 year old female h/o Emphysema, HTN, HLD, DM, MDS a/w pneumonia, anemia, coffee ground emesis. 1. Coffee ground emesis 2. Anemia 3. Thrombocytopenia Plan: -no further signs of bleeding -would continue supportive measures, monitor for bleeding transfuse as necessary -continue acid suppressive therapy for now -no plans for endoscopic evaluation at this time
[2017-03-14] MEDS: Albuterol 0.042% Inhal Sol (1.25 mg/3 mL) UD INH SCH ×3 (07:27→23:46)
[2017-03-14] MEDS: (Novolin R) Insulin Human Regular 100 units/ml vial SC SCH ×4 (08:05→21:34)
--- NOTE | 2017-03-14 08:25 | RAD ---
HISTORY: chf COMPARISON: Chest radiographs 03/12/2017. FINDINGS: Right life port catheter unchanged in position. LUNGS: The mid left perihilar and superior right lung zone airspace disease remains with left basilar patchy density diminished. PLEURA: No significant pleural effusion identified, no pneumothorax apparent. CARDIOVASCULAR: Hilar vascular markings may be somewhat increased and CHF is not excluded in the interval. OSSEOUS STRUCTURES: No significant abnormalities. VISUALIZED UPPER ABDOMEN: Inferior vena cava filter again evident. OTHER FINDINGS: None. IMPRESSION: Mild pulmonary venous congestion/ CHF in question. Diminished left basilar patchy airspace disease with persistent left greater than right perihilar patchy airspace disease remaining.
[2017-03-14 09:09] LABS: HEMATOCRIT 25.4 % (34.0-47.0); LYMPH % 15.9 % (20.0-40.0); MEAN CELL VOLUME 96.8 fL (81.0-99.0); MEAN CORPUSCULAR HEMOGLOBIN 30.6 pg (27.0-31.0); MEAN CORPUSCULAR HGB CONC 31.6 g/dL (33.0-37.0); MEAN PLATELET VOLUME 8.7 fL (7.2-11.7); MONO # 7.2 K/uL (0.0-0.8); MONO % 38.3 % (0.0-10.0); NRBC % 0.6 % (0.0-2.0); RED CELL DISTRIBUTION WIDTH 22.6 % (11.5-14.5); WHITE BLOOD COUNT 18.8 K/uL (4.8-10.8)
[2017-03-14 09:22] LABS: BLOOD UREA NITROGEN 16 mg/dL (7-17); CARBON DIOXIDE 26 mmol/L (22-30); CHLORIDE 111 mmol/L (98-107); GFR AFRICAN-AMERICAN > 60; GLUCOSE,RANDOM 102 mg/dL (65-105); POTASSIUM 3.1 mmol/L (3.6-5.2); SODIUM 142 mmol/L (132-148)
[2017-03-14 09:30] LABS: PLATELET COUNT 54 K/uL (130-400)
[2017-03-14 09:49] LABS: NEUTROPHIL 51 % (50-75); REACTIVE LYMPHOCYTES 1 % (0-0); TOTAL CELLS COUNTED 100
--- NOTE | 2017-03-14 10:38 | PN ---
DATE: 03/14/2017 NEUROLOGICAL PROBLEM: Clinical myasthenia gravis. PHYSICAL EXAMINATION: VITAL SIGNS: Blood pressure 122/70, mean arterial pressure 78, respiratory rate is 18, temperature 97.5. GENERAL: The patient is lethargic. Arousable on calling her name. Follows one-step command. Examination which is unchanged compared with the yesterday's examination. The patient is scheduled for removal of Port-A-Cath. Still workup for myasthenia gravis is pending. RECOMMENDATION: When Port-A-Cath is removed, the patient should have MRI of the brain to rule out any structural cause for her existing problem associating with followup for her incidental meningioma versus tumor, primary versus secondary. Continue Mestinon for now. Electroencephalogram reviewed by me showed loose electrode artifact throughout the recording associating with 4 to 5 Hz delta mixed with theta activities without any paroxysmal activities. Javad Cota MD MTDD
[2017-03-14] MEDS: Calcium-Vit D 250 mg-125 Units Tab UD PO SCH (10:52)
[2017-03-14] MEDS: Multiple Vitamins Tab PO SCH (10:52)
[2017-03-14] MEDS: Potassium Chloride 20 mEq ER Tab PO SCH ×2 (10:52→21:31)
[2017-03-14] MEDS: Magnesium Oxide 400 mg Tab UD PO SCH (10:53)
[2017-03-14] MEDS: Ammonium Lactate 12% Lotion (225 g) EXT SCH ×2 (11:00→21:31)
[2017-03-14 11:08] LABS: INR 2.1
--- NOTE | 2017-03-14 12:22 | CP.PCM.CON ---
History of Present Illness - History of Present Illness History of Present Illness: Pt is a 76 yo female with history of decreased vision in her right eye for one week per pt. She reports pain. She reports to history of ocular surgery. 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 Will cover for both. Use PF QID OD. Use ocuflox QID OD. Use timolol BID OD. Pt has poor visual prognosis for right eye due to NLP vision today. If any questions please contact our office [phone]. Past Patient History - Infectious Disease Hx of Infectious Diseases: None - Tetanus Immunizations Tetanus Immunization: Unknown, Up to Date - Past Medical History & Family History Past Medical History?: Yes - Past Social History Smoking Status: Never Smoked Chewing Tobacco Use: No Cigar Use: No Alcohol: None Drugs: Denies Home Situation {Lives}: With Family - CARDIAC Hx Congestive Heart Failure: Yes Hx Hypertension: Yes - PULMONARY Hx Chronic Obstructive Pulmonary Disease (COPD): Yes (EMPHYSEMA) - NEUROLOGICAL Hx Neurological Disorder: No Hx Vertigo: Yes - HEENT Hx HEENT Problems: No - RENAL Hx Chronic Kidney Disease: No - ENDOCRINE/METABOLIC Hx Diabetes Mellitus Type 2: Yes - HEMATOLOGICAL/ONCOLOGICAL Hx Anemia: Yes Hx Blood Transfusions: Yes - INTEGUMENTARY Hx Dermatological Problems: No Other/Comment: BLE w/ cauliflowered skin - MUSCULOSKELETAL/RHEUMATOLOGICAL Hx Arthritis: Yes (NECK, L SH; B/L KNEES) - GASTROINTESTINAL Hx Gastritis: Yes - GENITOURINARY/GYNECOLOGICAL Hx Genitourinary Disorders: No Para: 2 - PSYCHIATRIC Hx Physical Abuse: No Hx Schizophrenia: No Hx Sexual Abuse: No Hx Substance Use: No - SURGICAL HISTORY Hx Cholecystectomy: Yes (in 2010) Hx Tonsillectomy: Yes (8yrs old) - ANESTHESIA Hx Anesthesia: Yes Hx Anesthesia Reactions: No Hx Malignant Hyperthermia: No Meds Allergies/Adverse Reactions: Allergies Allergy/AdvReac Type Severity Reaction Status Date / Time Gadolinium-Containing Allergy ITCHING Verified 12/13/16 15:45 Contrast Medi - Medications Medications: Current Medications Acetaminophen/Codeine Phosphate (Tylenol/Codeine 300 Mg/30 Mg) 1 ea PO Q4 PRN PRN Reason: Pain, moderate (4-7) Last Admin: 03/12/17 03:39 Dose: 1 ea Albuterol Sulfate (Albuterol 0.042% Inhal Tricia (1.25mg/3ml) Ud) 1.25 mg INH RQ8 [facility] Last Admin: 03/14/17 07:27 Dose: 1.25 mg Calcium/Vitamin D (Oscal-D 250 Mg-125 Units Tab) 1 tab PO DAILY [facility] Last Admin: 03/14/17 10:52 Dose: 1 tab Dextrose (Dextrose 50% Inj) 0 ml IVP .STAT PRN; Protocol PRN Reason: Hypoglycemia Protocol Last Admin: 03/14/17 06:59 Dose: 50 ml Famotidine (Pepcid) 20 mg IVP DAILY [facility] Last Admin: 03/14/17 10:53 Dose: 20 mg Ferrous Sulfate (Feosol) 325 mg PO DAILY [facility] Last Admin: 03/14/17 10:52 Dose: 325 mg Folic Acid (Folic Acid) 1 mg PO DAILY [facility] Last Admin: 03/14/17 10:52 Dose: 1 mg Furosemide (Lasix) 40 mg PO DAILY [facility] Last Admin: 03/14/17 10:54 Dose: 40 mg Metronidazole (Flagyl) 500 mg in 100 mls @ 100 mls/hr IVPB Q8H [facility] Last Admin: 03/14/17 10:53 Dose: 100 mls/hr Tigecycline 50 mg/ Dextrose 100 mls @ 100 mls/hr IVPB Q12H [facility] Last Admin: 03/14/17 11:51 Dose: 100 mls/hr Dextrose (Dextrose 5% In Water) 500 mls @ 50 mls/hr IV .Q10H [facility] Stop: 03/14/17 21:44 Insulin Glargine (Lantus) 8 unit SC HS [facility] Last Admin: 03/13/17 21:53 Dose: 8 units Insulin Human Regular (Novolin R) 0 unit SC ACHS [facility] PRN Reason: Protocol Last Admin: 03/14/17 08:05 Dose: Not Given Lactic Acid (Lac-Hydrin 12% Lotion (225 G)) 0 gm EXT BID [facility] Last Admin: 03/14/17 11:00 Dose: 1 applic Loperamide HCl (Imodium) 2 mg PO Q4H PRN PRN Reason: Diarrhea Lorazepam (Ativan) 0.5 mg PO HS PRN PRN Reason: Anxiety Last Admin: 03/10/17 03:45 Dose: 0.5 mg Magnesium Oxide (Mag-Ox) 400 mg PO DAILY [facility] Last Admin: 03/14/17 10:53 Dose: 400 mg Multivitamins (Hexavitamin) 1 tab PO DAILY [facility] Last Admin: 03/14/17 10:52 Dose: 1 tab Potassium Chloride (K-Dur 20 Meq Er Tab) 20 meq PO DAILY [facility] Last Admin: 03/14/17 10:52 Dose: 20 meq Prednisolone Acetate (Pred Forte 1% Opht Susp) 0 ml OD QID [facility] Pyridostigmine [place] (Mestinon Tab) 60 mg PO TID [facility] Last Admin: 03/14/17 10:52 Dose: 60 mg Timolol Maleate (Timoptic 0.5% Ophth Soln) 1 drop OD BID [facility] Results - Vital Signs Recent Vital Signs: Last Vital Signs Temp 97.4 F L 03/14/17 07:00 Pulse 69 03/14/17 07:00 Resp 22 03/14/17 07:00 BP 133/66 03/14/17 10:54 Pulse Ox 100 03/14/17 07:00 - Labs Result Diagrams: 03/14/17 08:58 03/14/17 08:58 Labs: Laboratory Results - last 24 hr 03/13/17 03/13/17 03/13/17 11:54 11:54 16:26 WBC RBC Hgb Hct MCV MCH MCHC RDW Plt Count MPV Neut % (Auto) 62.0 Lymph % (Auto) 18.0 L [place] % (Auto) 20.0 H Eos % (Auto) 0.0 Baso % (Auto) 0.0 Neut # 11.0 H Lymph # 3.2 [place] # 3.5 H Eos # 0.0 Baso # 0.0 Neutrophils % (Manual) Band Neutrophils % Lymphocytes % (Manual) Reactive Lymphs % Monocytes % (Manual) Platelet Estimate Hypochromasia (manual) Poikilocytosis (manual Anisocytosis (manual) Macrocytosis (manual) Target Cells Tear Drop Cells [place] Cells PT INR APTT Sodium 142 Potassium 3.5 L Chloride 110 H Carbon Dioxide 27 Anion Gap 8 L BUN 15 Creatinine 1.0 Est GFR ( Amer) > 60 Est GFR (Non-Af Amer) 54 POC Glucose (mg/dL) 142 H Random Glucose 93 Calcium 7.9 L Total Bilirubin 0.8 AST 28 ALT 41 Alkaline Phosphatase 555 H D Total Protein 7.2 Albumin 2.0 L Globulin 5.2 H Albumin/Globulin Ratio 0.4 L 03/13/17 03/14/17 03/14/17 21:26 06:46 07:16 WBC RBC Hgb Hct MCV MCH MCHC RDW Plt Count MPV Neut % (Auto) Lymph % (Auto) [place] % (Auto) Eos % (Auto) Baso % (Auto) Neut # Lymph # [place] # Eos # Baso # Neutrophils % (Manual) Band Neutrophils % Lymphocytes % (Manual) Reactive Lymphs % Monocytes % (Manual) Platelet Estimate Hypochromasia (manual) Poikilocytosis (manual Anisocytosis (manual) Macrocytosis (manual) Target Cells Tear Drop Cells [place] Cells PT INR APTT Sodium Potassium Chloride Carbon Dioxide Anion Gap BUN Creatinine Est GFR ( Amer) Est GFR (Non-Af Amer) POC Glucose (mg/dL) 153 H 44 L 165 H Random Glucose Calcium Total Bilirubin AST ALT Alkaline Phosphatase Total Protein Albumin Globulin Albumin/Globulin Ratio 03/14/17 03/14/17 03/14/17 08:58 08:58 10:56 WBC 18.8 H RBC 2.63 L Hgb 8.0 L Hct 25.4 L MCV 96.8 MCH 30.6 MCHC 31.6 L RDW 22.6 H Plt Count 54 L D MPV 8.7 Neut % (Auto) 45.8 L Lymph % (Auto) 15.9 L [place] % (Auto) 38.3 H Eos % (Auto) 0.0 Baso % (Auto) 0.0 Neut # 8.6 H Lymph # 3.0 [place] # 7.2 H Eos # 0.0 Baso # 0.0 Neutrophils % (Manual) 51 Band Neutrophils % 2 Lymphocytes % (Manual) 19 L Reactive Lymphs % 1 H Monocytes % (Manual) 27 H Platelet Estimate Decreased L Hypochromasia (manual) Moderate Poikilocytosis (manual Slight Anisocytosis (manual) Slight Macrocytosis (manual) Slight Target Cells Slight Tear Drop Cells Slight [place] Cells Slight PT 25.1 H INR 2.1 APTT 39 H Sodium 142 Potassium 3.1 L Chloride 111 H Carbon Dioxide 26 Anion Gap 8 L BUN 16 Creatinine 0.9 Est GFR ( Amer) > 60 Est GFR (Non-Af Amer) > 60 POC Glucose (mg/dL) Random Glucose 102 Calcium 8.0 L Total Bilirubin AST ALT Alkaline Phosphatase Total Protein Albumin Globulin Albumin/Globulin Ratio
--- NOTE | 2017-03-14 12:41 | EEG ---
This is a 16-channel electroencephalogram of awake and lethargic adult. During the study, photic stimulation was performed. Hyperventilation was not performed. The resting electroencephalogram consists of diffuse electrical loose electrode artifact noted from the beginning. This obscured the existing electrophysiologic abnormal activities of the brain. Later of this study, patient showed 4-5 Hz delta mixed with theta activities noted without any focal slowing or paroxysmal activities. CONCLUSION: This is abnormal electroencephalogram because of persistent slowing throughout the record suggestive of bilateral cerebral dysfunction. This is probably secondary to metabolic, vascular, or degenerative process. Please correlate the findings with neurological and radiological studies. Javad Cota MD
[2017-03-14] MEDS: PrednisoLONE 1% Opht Susp(5 ml) OD SCH ×4 (14:14→22:26)
[2017-03-14] MEDS: Ofloxacin 0.3% Ophth Soln OD SCH ×3 (14:14→22:26)
[2017-03-14] MEDS ORDERED: Lactated Ringer's 1,000 ML IV ONE (15:37)
[2017-03-14] MEDS ORDERED: HEPARIN-NS 5,000 UNITS/500 ML 0 UNIT/0 ML BAG IV ONE (15:43)
[2017-03-14] MEDS ORDERED: Lidocaine 2% w Epi 1:100,000 Inj IJ ONE (15:43)
--- NOTE | 2017-03-14 16:17 | PCM.SURG1 ---
Surgeon's Initial Post Op Note - Surgeon's Notes Surgeon: Dr. Bateman Order Entry Administrator: Mirza PGY1 Type of Anesthesia: IV Sedation Pre-Operative Diagnosis: Infected portacath Operative Findings: see operative report Post-Operative Diagnosis: Infected portacath Operation Performed: Removal of infected portacath Specimen/Specimens Removed: Infected portacath Estimated Blood Loss: EBL {In ML}: 0 Blood Products Given: N/A Drains Used: No Drains Post-Op Condition: Good Date of Surgery/Procedure: 03/14/17 Time of Surgery/Procedure: 03:45
[2017-03-14] MEDS ORDERED: Dextrose 50% VIAL Inj (50 ml) IV ONE (16:25)
[2017-03-14] MEDS ORDERED: Dextrose 50% SYRINGE Inj (50 ml) IV ONE (16:30)
--- NOTE | 2017-03-14 17:24 | CP.PCM.PN ---
Subjective - Date & Time of Evaluation Date of Evaluation: 03/14/17 Time of Evaluation: 09:00 - Subjective Subjective: port removed afeb tolerated well Objective - Vital Signs/Intake and Output Vital Signs (last 24 hours): Temp Pulse Resp BP Pulse Ox 96.9 F L 74 12 111/57 L 100 03/14/17 16:15 03/14/17 17:00 03/14/17 17:00 03/14/17 17:00 03/14/17 17:00 Intake and Output: 03/14/17 03/14/17 06:59 18:59 Intake Total 504 100 Balance 504 100 - Medications Medications: Current Medications Acetaminophen/Codeine Phosphate (Tylenol/Codeine 300 Mg/30 Mg) 1 ea PO Q4 PRN PRN Reason: Pain, moderate (4-7) Last Admin: 03/12/17 03:39 Dose: 1 ea Albuterol Sulfate (Albuterol 0.042% Inhal Tricia (1.25mg/3ml) Ud) 1.25 mg INH RQ8 [facility] Last Admin: 03/14/17 16:01 Dose: Not Given Calcium/Vitamin D (Oscal-D 250 Mg-125 Units Tab) 1 tab PO DAILY [facility] Last Admin: 03/14/17 10:52 Dose: 1 tab Dextrose (Dextrose 50% Inj) 0 ml IVP .STAT PRN; Protocol PRN Reason: Hypoglycemia Protocol Last Admin: 03/14/17 06:59 Dose: 50 ml Famotidine (Pepcid) 20 mg IVP DAILY [facility] Last Admin: 03/14/17 10:53 Dose: 20 mg Ferrous Sulfate (Feosol) 325 mg PO DAILY [facility] Last Admin: 03/14/17 10:52 Dose: 325 mg Folic Acid (Folic Acid) 1 mg PO DAILY [facility] Last Admin: 03/14/17 10:52 Dose: 1 mg Furosemide (Lasix) 40 mg PO DAILY [facility] Last Admin: 03/14/17 10:54 Dose: 40 mg Metronidazole (Flagyl) 500 mg in 100 mls @ 100 mls/hr IVPB Q8H [facility] Last Admin: 03/14/17 10:53 Dose: 100 mls/hr Tigecycline 50 mg/ Dextrose 100 mls @ 100 mls/hr IVPB Q12H [facility] Last Admin: 03/14/17 11:51 Dose: 100 mls/hr Dextrose (Dextrose 5% In Water) 500 mls @ 50 mls/hr IV .Q10H [facility] Stop: 03/14/17 21:44 Insulin Glargine (Lantus) 8 unit SC HS [facility] Last Admin: 03/13/17 21:53 Dose: 8 units Insulin Human Regular (Novolin R) 0 unit SC ACHS [facility] PRN Reason: Protocol Last Admin: 03/14/17 12:18 Dose: Not Given Lactic Acid (Lac-Hydrin 12% Lotion (225 G)) 0 gm EXT BID [facility] Last Admin: 03/14/17 11:00 Dose: 1 applic Loperamide HCl (Imodium) 2 mg PO Q4H PRN PRN Reason: Diarrhea Lorazepam (Ativan) 0.5 mg PO HS PRN PRN Reason: Anxiety Last Admin: 03/10/17 03:45 Dose: 0.5 mg Magnesium Oxide (Mag-Ox) 400 mg PO DAILY [facility] Last Admin: 03/14/17 10:53 Dose: 400 mg Morphine Sulfate (Morphine) 1 mg IVP Q10M PRN PRN Reason: Pain, moderate (4-7) Stop: 03/14/17 18:22 Multivitamins (Hexavitamin) 1 tab PO DAILY [facility] Last Admin: 03/14/17 10:52 Dose: 1 tab Ofloxacin (Ocuflox Ophth 0.3%) 0 ml OD QID [facility] Last Admin: 03/14/17 14:14 Dose: Not Given Ondansetron HCl (Zofran Inj) 4 mg IVP ONCE PRN PRN Reason: Nausea/Vomiting Stop: 03/14/17 18:22 Potassium Chloride (K-Dur 20 Meq Er Tab) 20 meq PO DAILY [facility] Last Admin: 03/14/17 10:52 Dose: 20 meq Prednisolone Acetate (Pred Forte 1% Opht Susp) 0 ml OD QID [facility] Last Admin: 03/14/17 14:14 Dose: Not Given Pyridostigmine [place] (Mestinon Tab) 60 mg PO TID [facility] Last Admin: 03/14/17 14:13 Dose: Not Given Timolol Maleate (Timoptic 0.5% Ophth Soln) 1 drop OD BID [facility] - Labs Labs: 03/14/17 08:58 03/14/17 08:58 PT 25.1 SECONDS (9.7-12.2) H 03/14/17 10:56 INR 2.1 03/14/17 10:56 APTT 39 SECONDS (21-34) H 03/14/17 10:56 - Constitutional Appears: Non-toxic, Chronically Ill - Head Exam Head Exam: NORMOCEPHALIC - Eye Exam Eye Exam: PERRL - ENT Exam ENT Exam: Mucous Membranes Dry - Neck Exam Neck Exam: absent: Lymphadenopathy - Respiratory Exam Respiratory Exam: Decreased Breath Sounds - Cardiovascular Exam Cardiovascular Exam: REGULAR RHYTHM - GI/Abdominal Exam GI & Abdominal Exam: Distended, Soft Assessment and Plan (1) Myelodysplasia (myelodysplastic syndrome) Status: Acute (2) Severe anemia Status: Acute (3) Acute on chronic diastolic (congestive) heart failure Status: Acute (4) Anemia Status: Acute (5) Degenerative disc disease at L5-S1 level Status: Acute (6) Dehydration Status: Acute (7) Diabetes mellitus type 2 in obese Status: Acute (8) Carbapenem-resistant bacterial infection Status: Acute (9) Carbapenem-resistant bacterial infection Status: Acute
[2017-03-14] MEDS: (Lantus) Insulin Glargine, Recombinant SC SCH (21:35)
--- NOTE | 2017-03-14 23:00 | CP.PCM.PN ---
Subjective - Date & Time of Evaluation Date of Evaluation: 03/14/17 Time of Evaluation: 13:35 - Subjective Subjective: Patient given platlet transfusion and underwent successful removal of portacath. She was evaluated for loss of vision in the right eye by Dr Ibarra. Objective - Vital Signs/Intake and Output Vital Signs (last 24 hours): Temp Pulse Resp BP Pulse Ox 97.1 F L 64 20 118/55 L 100 03/14/17 19:00 03/14/17 19:00 03/14/17 19:00 03/14/17 19:00 03/14/17 19:00 Intake and Output: 03/14/17 03/15/17 18:59 06:59 Intake Total 100 Balance 100 - Medications Medications: Current Medications Acetaminophen/Codeine Phosphate (Tylenol/Codeine 300 Mg/30 Mg) 1 ea PO Q4 PRN PRN Reason: Pain, moderate (4-7) Last Admin: 03/12/17 03:39 Dose: 1 ea Albuterol Sulfate (Albuterol 0.042% Inhal Tricia (1.25mg/3ml) Ud) 1.25 mg INH RQ8 [facility] Last Admin: 03/14/17 16:01 Dose: Not Given Calcium/Vitamin D (Oscal-D 250 Mg-125 Units Tab) 1 tab PO DAILY [facility] Last Admin: 03/14/17 10:52 Dose: 1 tab Dextrose (Dextrose 50% Inj) 0 ml IVP .STAT PRN; Protocol PRN Reason: Hypoglycemia Protocol Last Admin: 03/14/17 06:59 Dose: 50 ml Famotidine (Pepcid) 20 mg IVP DAILY [facility] Last Admin: 03/14/17 10:53 Dose: 20 mg Ferrous Sulfate (Feosol) 325 mg PO DAILY [facility] Last Admin: 03/14/17 10:52 Dose: 325 mg Folic Acid (Folic Acid) 1 mg PO DAILY [facility] Last Admin: 03/14/17 10:52 Dose: 1 mg Furosemide (Lasix) 40 mg PO DAILY [facility] Last Admin: 03/14/17 10:54 Dose: 40 mg Metronidazole (Flagyl) 500 mg in 100 mls @ 100 mls/hr IVPB Q8H [facility] Last Admin: 03/14/17 18:53 Dose: 100 mls/hr Tigecycline 50 mg/ Dextrose 100 mls @ 100 mls/hr IVPB Q12H [facility] Last Admin: 03/14/17 11:51 Dose: 100 mls/hr Insulin Glargine (Lantus) 8 unit SC HS [facility] Last Admin: 03/14/17 21:35 Dose: Not Given Insulin Human Regular (Novolin R) 0 unit SC ACHS [facility] PRN Reason: Protocol Last Admin: 03/14/17 21:34 Dose: Not Given Lactic Acid (Lac-Hydrin 12% Lotion (225 G)) 0 gm EXT BID [facility] Last Admin: 03/14/17 21:31 Dose: 1 applic Loperamide HCl (Imodium) 2 mg PO Q4H PRN PRN Reason: Diarrhea Lorazepam (Ativan) 0.5 mg PO HS PRN PRN Reason: Anxiety Last Admin: 03/10/17 03:45 Dose: 0.5 mg Magnesium Oxide (Mag-Ox) 400 mg PO DAILY [facility] Last Admin: 03/14/17 10:53 Dose: 400 mg Multivitamins (Hexavitamin) 1 tab PO DAILY [facility] Last Admin: 03/14/17 10:52 Dose: 1 tab Ofloxacin (Ocuflox Ophth 0.3%) 0 ml OD QID [facility] Last Admin: 03/14/17 22:26 Dose: Not Given Potassium Chloride (K-Dur 20 Meq Er Tab) 20 meq PO BID [facility] Last Admin: 03/14/17 21:31 Dose: 20 meq Prednisolone Acetate (Pred Forte 1% Opht Susp) 0 ml OD QID [facility] Last Admin: 03/14/17 22:26 Dose: Not Given Pyridostigmine [place] (Mestinon Tab) 60 mg PO TID [facility] Last Admin: 03/14/17 18:53 Dose: 60 mg Timolol Maleate (Timoptic 0.5% Ophth Soln) 1 drop OD BID [facility] Last Admin: 03/14/17 18:54 Dose: 1 drop - Labs Labs: 03/14/17 08:58 03/14/17 08:58 PT 25.1 SECONDS (9.7-12.2) H 03/14/17 10:56 INR 2.1 03/14/17 10:56 APTT 39 SECONDS (21-34) H 03/14/17 10:56 - Constitutional Appears: Chronically Ill - Head Exam Head Exam: NORMOCEPHALIC - Eye Exam Eye Exam: Periorbital tenderness - ENT Exam ENT Exam: Normal Oropharynx - Neck Exam Neck Exam: Normal Inspection - Respiratory Exam Respiratory Exam: Decreased Breath Sounds - Cardiovascular Exam Cardiovascular Exam: REGULAR RHYTHM - GI/Abdominal Exam GI & Abdominal Exam: Diminished Bowel Sounds - Rectal Exam Rectal Exam: Deferred - Exam External exam: NORMAL EXTERNAL EXAM - Extremities Exam Extremities Exam: Joint Swelling - Back Exam Back Exam: NORMAL INSPECTION - Neurological Exam Neurological Exam: Oriented x3 - Psychiatric Exam Psychiatric exam: Depressed - Skin Skin Exam: Dry Assessment and Plan (1) Myelodysplasia (myelodysplastic syndrome) Status: Acute (2) Severe anemia Status: Acute (3) Degenerative disc disease at L5-S1 level Status: Acute (4) Osteoarthritis Status: Acute (5) Thrombocytopenia Status: Acute (6) Sepsis Status: Acute
[2017-03-15] MEDS: Tigecycline 50 MG in Dextrose 5% In Water 100 ML IVPB SCH ×2 (00:05→13:00)
[2017-03-15] MEDS: metroNIDAZOLE IV 500 mg/100 ml 500 MG/100 ML BAG IVPB SCH ×3 (01:34→18:08)
[2017-03-15] MEDS: (Novolin R) Insulin Human Regular 100 units/ml vial SC SCH ×4 (07:24→21:10)
[2017-03-15] MEDS: Albuterol 0.042% Inhal Sol (1.25 mg/3 mL) UD INH SCH ×4 (07:33→23:35)
[2017-03-15 07:44] LABS: HEMATOCRIT 24.9 % (34.0-47.0); MEAN CELL VOLUME 98.3 fL (81.0-99.0); MEAN CORPUSCULAR HEMOGLOBIN 30.2 pg (27.0-31.0); MEAN CORPUSCULAR HGB CONC 30.7 g/dL (33.0-37.0); MEAN PLATELET VOLUME 9.3 fL (7.2-11.7); WHITE BLOOD COUNT 17.5 K/uL (4.8-10.8)
[2017-03-15 07:59] LABS: ALB/GLOB RATIO 0.5 (1.0-2.1); ALKALINE PHOSPHATASE 385 U/L (38-126); ALT/SGPT 28 U/L (9-52); AST/SGOT 26 U/L (14-36); BILIRUBIN,TOTAL 1.5 mg/dL (0.2-1.3); BLOOD UREA NITROGEN 17 mg/dL (7-17); CALCIUM 7.6 mg/dl (8.6-10.4); CARBON DIOXIDE 25 mmol/L (22-30); CHLORIDE 108 mmol/L (98-107); GFR AFRICAN-AMERICAN > 60; GLUCOSE,RANDOM 94 mg/dL (65-105); POTASSIUM 3.7 mmol/L (3.6-5.2); SODIUM 141 mmol/L (132-148); TOTAL PROTEIN 6.4 g/dL (6.3-8.3)
--- NOTE | 2017-03-15 08:45 | CP.PCM.PN ---
<Nusrat Wright - Last Filed: 03/15/17 08:41> Subjective - Date & Time of Evaluation Date of Evaluation: 03/15/17 Time of Evaluation: 08:41 - Subjective Subjective: Gastroenterology Fellow/PGY5 Progress Note Patient resting comfortably. Tolerated regular diet for dinner. No episodes of vomiting confirmed by nursing staff. One bowel movement yesterday. A 12-point review of systems negative except for as above. Objective - Vital Signs/Intake and Output Vital Signs (last 24 hours): Temp Pulse Resp BP Pulse Ox 97.3 F L 63 20 130/79 100 03/15/17 07:10 03/15/17 07:10 03/15/17 07:10 03/15/17 07:10 03/15/17 07:10 - Medications Medications: Current Medications Acetaminophen/Codeine Phosphate (Tylenol/Codeine 300 Mg/30 Mg) 1 ea PO Q4 PRN PRN Reason: Pain, moderate (4-7) Last Admin: 03/12/17 03:39 Dose: 1 ea Albuterol Sulfate (Albuterol 0.042% Inhal Tricia (1.25mg/3ml) Ud) 1.25 mg INH RQ8 [facility] Last Admin: 03/15/17 07:33 Dose: 1.25 mg Calcium/Vitamin D (Oscal-D 250 Mg-125 Units Tab) 1 tab PO DAILY [facility] Last Admin: 03/14/17 10:52 Dose: 1 tab Dextrose (Dextrose 50% Inj) 0 ml IVP .STAT PRN; Protocol PRN Reason: Hypoglycemia Protocol Last Admin: 03/14/17 06:59 Dose: 50 ml Famotidine (Pepcid) 20 mg IVP DAILY [facility] Last Admin: 03/14/17 10:53 Dose: 20 mg Ferrous Sulfate (Feosol) 325 mg PO DAILY [facility] Last Admin: 03/14/17 10:52 Dose: 325 mg Folic Acid (Folic Acid) 1 mg PO DAILY [facility] Last Admin: 03/14/17 10:52 Dose: 1 mg Furosemide (Lasix) 40 mg PO DAILY [facility] Last Admin: 03/14/17 10:54 Dose: 40 mg Metronidazole (Flagyl) 500 mg in 100 mls @ 100 mls/hr IVPB Q8H [facility] Last Admin: 03/15/17 01:34 Dose: 100 mls/hr Tigecycline 50 mg/ Dextrose 100 mls @ 100 mls/hr IVPB Q12H [facility] Last Admin: 03/15/17 00:05 Dose: 100 mls/hr Insulin Glargine (Lantus) 8 unit SC HS [facility] Last Admin: 03/14/17 21:35 Dose: Not Given Insulin Human Regular (Novolin R) 0 unit SC ACHS [facility] PRN Reason: Protocol Last Admin: 03/15/17 07:24 Dose: Not Given Lactic Acid (Lac-Hydrin 12% Lotion (225 G)) 0 gm EXT BID [facility] Last Admin: 03/14/17 21:31 Dose: 1 applic Loperamide HCl (Imodium) 2 mg PO Q4H PRN PRN Reason: Diarrhea Lorazepam (Ativan) 0.5 mg PO HS PRN PRN Reason: Anxiety Last Admin: 03/10/17 03:45 Dose: 0.5 mg Magnesium Oxide (Mag-Ox) 400 mg PO DAILY [facility] Last Admin: 03/14/17 10:53 Dose: 400 mg Multivitamins (Hexavitamin) 1 tab PO DAILY [facility] Last Admin: 03/14/17 10:52 Dose: 1 tab Ofloxacin (Ocuflox Ophth 0.3%) 0 ml OD QID [facility] Last Admin: 03/14/17 22:26 Dose: Not Given Potassium Chloride (K-Dur 20 Meq Er Tab) 20 meq PO BID [facility] Last Admin: 03/14/17 21:31 Dose: 20 meq Prednisolone Acetate (Pred Forte 1% Opht Susp) 0 ml OD QID [facility] Last Admin: 03/14/17 22:26 Dose: Not Given Pyridostigmine [place] (Mestinon Tab) 60 mg PO TID [facility] Last Admin: 03/14/17 18:53 Dose: 60 mg Timolol Maleate (Timoptic 0.5% Ophth Soln) 1 drop OD BID [facility] Last Admin: 03/14/17 18:54 Dose: 1 drop - Labs Labs: 03/15/17 07:35 03/15/17 07:35 PT 25.1 SECONDS (9.7-12.2) H 03/14/17 10:56 INR 2.1 03/14/17 10:56 APTT 39 SECONDS (21-34) H 03/14/17 10:56 - Constitutional Appears: Non-toxic, No Acute Distress - Head Exam Head Exam: ATRAUMATIC, NORMOCEPHALIC - Eye Exam Eye Exam: Conjunctival injection, EOMI, Periorbital swelling, PERRL - ENT Exam ENT Exam: Mucous Membranes Moist, Normal Oropharynx - Neck Exam Neck Exam: Normal Inspection - Respiratory Exam Respiratory Exam: Clear to Ausculation Bilateral. absent: Rales, Rhonchi, Wheezes - Cardiovascular Exam Cardiovascular Exam: RRR, +S1, +S2. absent: Gallop, Rubs - GI/Abdominal Exam GI & Abdominal Exam: Soft, Normal Bowel Sounds. absent: Distended, Firm, Guarding, Rigid, Tenderness, Organomegaly, Rebound - Extremities Exam Extremities Exam: Pedal Edema Additional comments: chronic lymphedema and chronic skin changes - Neurological Exam Neurological Exam: Alert, Awake - Psychiatric Exam Psychiatric exam: Normal Affect, Normal Mood - Skin Skin Exam: Dry, Intact, Normal Color, Warm Assessment and Plan - Assessment and Plan (Free Text) Assessment: 76 year old female with history of Emphysema, Grade I diastolic dysfunction, EF 65% 02/2017, Hypertension, Hyperlipidemia, Diabetes, and myelodysplasia syndrome (anemia, thrombocytopenia) presenting with shortness of breath, shoulder pain, and weakness. Active treatment of K. pneumoniae bacteremia and ocular disturbances with neurology workup for myasthenia gravis and 2.8cm meningioma adjacent to falx. GI consultation for dark emesis concerning for upper GI bleed. No prior EGD or colonoscopy. Plan: >no signs of overt GI blood loss >hemodynamically stable >continue [id number], holding PPI due to thrombocytopenia >anemia multifactorial- myelodysplasia, sepsis >transfusion support as needed >surgery managing- POD1 (03/14) port-a-cath removal >recommend elective outpatient endoscopic evaluation once medically optimized <Ag Holguin - Last Filed: 03/15/17 10:36> Objective - Vital Signs/Intake and Output Vital Signs (last 24 hours): Temp Pulse Resp BP Pulse Ox 97.3 F L 63 20 130/79 100 03/15/17 07:10 03/15/17 07:10 03/15/17 07:10 03/15/17 07:10 03/15/17 07:10 - Medications Medications: Current Medications Acetaminophen/Codeine Phosphate (Tylenol/Codeine 300 Mg/30 Mg) 1 ea PO Q4 PRN PRN Reason: Pain, moderate (4-7) Last Admin: 03/12/17 03:39 Dose: 1 ea Albuterol Sulfate (Albuterol 0.042% Inhal Tricia (1.25mg/3ml) Ud) 1.25 mg INH RQ8 [facility] Last Admin: 03/15/17 07:33 Dose: 1.25 mg Calcium/Vitamin D (Oscal-D 250 Mg-125 Units Tab) 1 tab PO DAILY [facility] Last Admin: 03/14/17 10:52 Dose: 1 tab Dextrose (Dextrose 50% Inj) 0 ml IVP .STAT PRN; Protocol PRN Reason: Hypoglycemia Protocol Last Admin: 03/14/17 06:59 Dose: 50 ml Famotidine (Pepcid) 20 mg IVP DAILY [facility] Last Admin: 03/14/17 10:53 Dose: 20 mg Ferrous Sulfate (Feosol) 325 mg PO DAILY [facility] Last Admin: 03/14/17 10:52 Dose: 325 mg Folic Acid (Folic Acid) 1 mg PO DAILY [facility] Last Admin: 03/14/17 10:52 Dose: 1 mg Furosemide (Lasix) 40 mg PO DAILY [facility] Last Admin: 03/14/17 10:54 Dose: 40 mg Metronidazole (Flagyl) 500 mg in 100 mls @ 100 mls/hr IVPB Q8H [facility] Last Admin: 03/15/17 01:34 Dose: 100 mls/hr Tigecycline 50 mg/ Dextrose 100 mls @ 100 mls/hr IVPB Q12H [facility] Last Admin: 03/15/17 00:05 Dose: 100 mls/hr Insulin Glargine (Lantus) 8 unit SC HS [facility] Last Admin: 03/14/17 21:35 Dose: Not Given Insulin Human Regular (Novolin R) 0 unit SC ACHS [facility] PRN Reason: Protocol Last Admin: 03/15/17 07:24 Dose: Not Given Lactic Acid (Lac-Hydrin 12% Lotion (225 G)) 0 gm EXT BID [facility] Last Admin: 03/14/17 21:31 Dose: 1 applic Loperamide HCl (Imodium) 2 mg PO Q4H PRN PRN Reason: Diarrhea Lorazepam (Ativan) 0.5 mg PO HS PRN PRN Reason: Anxiety Last Admin: 03/10/17 03:45 Dose: 0.5 mg Magnesium Oxide (Mag-Ox) 400 mg PO DAILY [facility] Last Admin: 03/14/17 10:53 Dose: 400 mg Multivitamins (Hexavitamin) 1 tab PO DAILY [facility] Last Admin: 03/14/17 10:52 Dose: 1 tab Ofloxacin (Ocuflox Ophth 0.3%) 0 ml OD QID [facility] Last Admin: 03/14/17 22:26 Dose: Not Given Potassium Chloride (K-Dur 20 Meq Er Tab) 20 meq PO BID [facility] Last Admin: 03/14/17 21:31 Dose: 20 meq Prednisolone Acetate (Pred Forte 1% Opht Susp) 0 ml OD QID [facility] Last Admin: 03/14/17 22:26 Dose: Not Given Pyridostigmine [place] (Mestinon Tab) 60 mg PO TID [facility] Last Admin: 03/14/17 18:53 Dose: 60 mg Timolol Maleate (Timoptic 0.5% Ophth Soln) 1 drop OD BID [facility] Last Admin: 03/14/17 18:54 Dose: 1 drop - Labs Labs: 03/15/17 07:35 03/15/17 07:35 PT 25.1 SECONDS (9.7-12.2) H 03/14/17 10:56 INR 2.1 03/14/17 10:56 APTT 39 SECONDS (21-34) H 03/14/17 10:56 Attending/Attestation - Attestation I have personally seen and examined this patient.: Yes I have fully participated in the care of the patient.: Yes I have reviewed all pertinent clinical information, including history, physical exam and plan: Yes Notes (Text): 03/15/17 10:32 I have seen and examined patient with GI fellow. No acute events overnight, she is seen resting in bed, appears comfortable. She denies abdominal pain, nausea, or recurrent vomiting. Tolerating PO diet without difficulty. s/p removal of R chest wall portacath. Review of vitals from today are normal. CHF DM HTN MDS, anemia, thrombocytopenia Sepsis, bacteremia R occular abnormality, ?MG vs brain lesion - Diet as tolerated - H/H stable, no overt bleeding noted, continue to monitor and transfuse as necessary - Continue with H2 marisol therapy - Follow up neurology recommendations regarding occular abnormality, patient scheduled for MRI brain today - Continue with antibiotic therapy - Anti-emetic therapy PRN - Abdominal CT without contrast ordered by medical team, follow up results - No further planned GI intervention, will sign off case. Patient would benefit from elective outpatient endoscopic evaluation following resolution of acute infectious and neurological issues. Please reconsult as necessary, thank you.
[2017-03-15 08:59] LABS: LYMPH # 4.2 K/uL (1.0-4.3); MONO # 3.2 K/uL (0.0-0.8)
--- NOTE | 2017-03-15 09:12 | CP.PCM.PN ---
Subjective - Date & Time of Evaluation Date of Evaluation: 03/15/17 Time of Evaluation: 09:05 - Subjective Subjective: Surgery: Dr. Bateman Pt seen and examined. No acute events overnight. Pt has no complaints. Objective - Vital Signs/Intake and Output Vital Signs (last 24 hours): Temp Pulse Resp BP Pulse Ox 97.3 F L 63 20 130/79 100 03/15/17 07:10 03/15/17 07:10 03/15/17 07:10 03/15/17 07:10 03/15/17 07:10 - Medications Medications: Current Medications Acetaminophen/Codeine Phosphate (Tylenol/Codeine 300 Mg/30 Mg) 1 ea PO Q4 PRN PRN Reason: Pain, moderate (4-7) Last Admin: 03/12/17 03:39 Dose: 1 ea Albuterol Sulfate (Albuterol 0.042% Inhal Tricia (1.25mg/3ml) Ud) 1.25 mg INH RQ8 [facility] Last Admin: 03/15/17 07:33 Dose: 1.25 mg Calcium/Vitamin D (Oscal-D 250 Mg-125 Units Tab) 1 tab PO DAILY [facility] Last Admin: 03/14/17 10:52 Dose: 1 tab Dextrose (Dextrose 50% Inj) 0 ml IVP .STAT PRN; Protocol PRN Reason: Hypoglycemia Protocol Last Admin: 03/14/17 06:59 Dose: 50 ml Famotidine (Pepcid) 20 mg IVP DAILY [facility] Last Admin: 03/14/17 10:53 Dose: 20 mg Ferrous Sulfate (Feosol) 325 mg PO DAILY [facility] Last Admin: 03/14/17 10:52 Dose: 325 mg Folic Acid (Folic Acid) 1 mg PO DAILY [facility] Last Admin: 03/14/17 10:52 Dose: 1 mg Furosemide (Lasix) 40 mg PO DAILY [facility] Last Admin: 03/14/17 10:54 Dose: 40 mg Metronidazole (Flagyl) 500 mg in 100 mls @ 100 mls/hr IVPB Q8H [facility] Last Admin: 03/15/17 01:34 Dose: 100 mls/hr Tigecycline 50 mg/ Dextrose 100 mls @ 100 mls/hr IVPB Q12H [facility] Last Admin: 03/15/17 00:05 Dose: 100 mls/hr Insulin Glargine (Lantus) 8 unit SC HS [facility] Last Admin: 03/14/17 21:35 Dose: Not Given Insulin Human Regular (Novolin R) 0 unit SC ACHS [facility] PRN Reason: Protocol Last Admin: 03/15/17 07:24 Dose: Not Given Lactic Acid (Lac-Hydrin 12% Lotion (225 G)) 0 gm EXT BID [facility] Last Admin: 03/14/17 21:31 Dose: 1 applic Loperamide HCl (Imodium) 2 mg PO Q4H PRN PRN Reason: Diarrhea Lorazepam (Ativan) 0.5 mg PO HS PRN PRN Reason: Anxiety Last Admin: 03/10/17 03:45 Dose: 0.5 mg Magnesium Oxide (Mag-Ox) 400 mg PO DAILY [facility] Last Admin: 03/14/17 10:53 Dose: 400 mg Multivitamins (Hexavitamin) 1 tab PO DAILY [facility] Last Admin: 03/14/17 10:52 Dose: 1 tab Ofloxacin (Ocuflox Ophth 0.3%) 0 ml OD QID [facility] Last Admin: 03/14/17 22:26 Dose: Not Given Potassium Chloride (K-Dur 20 Meq Er Tab) 20 meq PO BID [facility] Last Admin: 03/14/17 21:31 Dose: 20 meq Prednisolone Acetate (Pred Forte 1% Opht Susp) 0 ml OD QID [facility] Last Admin: 03/14/17 22:26 Dose: Not Given Pyridostigmine [place] (Mestinon Tab) 60 mg PO TID [facility] Last Admin: 03/14/17 18:53 Dose: 60 mg Timolol Maleate (Timoptic 0.5% Ophth Soln) 1 drop OD BID [facility] Last Admin: 03/14/17 18:54 Dose: 1 drop - Labs Labs: 03/15/17 07:35 03/15/17 07:35 PT 25.1 SECONDS (9.7-12.2) H 03/14/17 10:56 INR 2.1 03/14/17 10:56 APTT 39 SECONDS (21-34) H 03/14/17 10:56 - Constitutional Appears: Non-toxic, No Acute Distress - Head Exam Head Exam: ATRAUMATIC, NORMOCEPHALIC - ENT Exam ENT Exam: Mucous Membranes Moist - Neck Exam Neck Exam: Full ROM - Respiratory Exam Respiratory Exam: NORMAL BREATHING PATTERN. absent: Accessory Muscle Use, Respiratory Distress - Cardiovascular Exam Additional comments: s/p removal of R subclavian portacath, dressing in place, C/D/I - GI/Abdominal Exam GI & Abdominal Exam: Soft. absent: Tenderness - Extremities Exam Extremities Exam: absent: Calf Tenderness, Pedal Edema - Neurological Exam Neurological Exam: Alert, Awake - Skin Skin Exam: Dry, Warm Assessment and Plan - Assessment and Plan (Free Text) Assessment: 76F w. klebsiella bacteremia s/p portacath removal POD#1 -c/w abx per ID -no further plans for surgical intervention at this time -d/w attending [facility] PGY3
[2017-03-15] MEDS: Ammonium Lactate 12% Lotion (225 g) EXT SCH ×2 (11:18→20:20)
[2017-03-15] MEDS: Magnesium Oxide 400 mg Tab UD PO SCH (11:42)
[2017-03-15] MEDS: Potassium Chloride 20 mEq ER Tab PO SCH ×2 (11:42→20:10)
[2017-03-15] MEDS: Multiple Vitamins Tab PO SCH (11:43)
[2017-03-15] MEDS: Calcium-Vit D 250 mg-125 Units Tab UD PO SCH (11:43)
[2017-03-15] MEDS: Ofloxacin 0.3% Ophth Soln OD SCH ×5 (11:44→21:30)
[2017-03-15] MEDS: PrednisoLONE 1% Opht Susp(5 ml) OD SCH ×5 (11:45→21:10)
[2017-03-15 13:06] LABS: AMYLASE 33 U/L (30-110)
--- NOTE | 2017-03-15 13:58 | CP.PCM.PN ---
Subjective - Date & Time of Evaluation Date of Evaluation: 03/15/17 Time of Evaluation: 12:30 - Subjective Subjective: CHART WRITER NOTES Patient seen and examined , more alert today, denies any chest pain, sob, abdominal pain, N/V , c/o weakness, poor appetite, No vatting reported by N labs reviewed today hgb drops from 8.0 -7.6 Objective - Vital Signs/Intake and Output Vital Signs (last 24 hours): Temp Pulse Resp BP Pulse Ox 97.3 F L 63 20 134/80 100 03/15/17 07:10 03/15/17 07:10 03/15/17 07:10 03/15/17 11:54 03/15/17 07:10 - Medications Medications: Current Medications Acetaminophen/Codeine Phosphate (Tylenol/Codeine 300 Mg/30 Mg) 1 ea PO Q4 PRN PRN Reason: Pain, moderate (4-7) Last Admin: 03/12/17 03:39 Dose: 1 ea Albuterol Sulfate (Albuterol 0.042% Inhal Tricia (1.25mg/3ml) Ud) 1.25 mg INH RQ8 [facility] Last Admin: 03/15/17 07:33 Dose: 1.25 mg Calcium/Vitamin D (Oscal-D 250 Mg-125 Units Tab) 1 tab PO DAILY [facility] Last Admin: 03/15/17 11:43 Dose: 1 tab Dextrose (Dextrose 50% Inj) 0 ml IVP .STAT PRN; Protocol PRN Reason: Hypoglycemia Protocol Last Admin: 03/14/17 06:59 Dose: 50 ml Famotidine (Pepcid) 20 mg IVP DAILY [facility] Last Admin: 03/15/17 11:43 Dose: 20 mg Ferrous Sulfate (Feosol) 325 mg PO DAILY [facility] Last Admin: 03/15/17 11:43 Dose: 325 mg Folic Acid (Folic Acid) 1 mg PO DAILY [facility] Last Admin: 03/15/17 11:42 Dose: 1 mg Furosemide (Lasix) 40 mg PO DAILY [facility] Last Admin: 03/15/17 11:54 Dose: 40 mg Metronidazole (Flagyl) 500 mg in 100 mls @ 100 mls/hr IVPB Q8H [facility] Last Admin: 03/15/17 11:43 Dose: 100 mls/hr Tigecycline 50 mg/ Dextrose 100 mls @ 100 mls/hr IVPB Q12H [facility] Last Admin: 03/15/17 13:00 Dose: 100 mls/hr Insulin Glargine (Lantus) 8 unit SC HS [facility] Last Admin: 03/14/17 21:35 Dose: Not Given Insulin Human Regular (Novolin R) 0 unit SC ACHS [facility] PRN Reason: Protocol Last Admin: 03/15/17 12:15 Dose: Not Given Lactic Acid (Lac-Hydrin 12% Lotion (225 G)) 0 gm EXT BID [facility] Last Admin: 03/15/17 11:18 Dose: Not Given Loperamide HCl (Imodium) 2 mg PO Q4H PRN PRN Reason: Diarrhea Lorazepam (Ativan) 0.5 mg PO HS PRN PRN Reason: Anxiety Last Admin: 03/10/17 03:45 Dose: 0.5 mg Magnesium Oxide (Mag-Ox) 400 mg PO DAILY [facility] Last Admin: 03/15/17 11:42 Dose: 400 mg Multivitamins (Hexavitamin) 1 tab PO DAILY [facility] Last Admin: 03/15/17 11:43 Dose: 1 tab Ofloxacin (Ocuflox Ophth 0.3%) 0 ml OD QID [facility] Last Admin: 03/15/17 13:39 Dose: 1 drop Potassium Chloride (K-Dur 20 Meq Er Tab) 20 meq PO BID [facility] Last Admin: 03/15/17 11:42 Dose: 20 meq Prednisolone Acetate (Pred Forte 1% Opht Susp) 0 ml OD QID [facility] Last Admin: 03/15/17 11:45 Dose: 1 drop Pyridostigmine [place] (Mestinon Tab) 60 mg PO TID [facility] Last Admin: 03/15/17 13:36 Dose: 60 mg Timolol Maleate (Timoptic 0.5% Ophth Soln) 1 drop OD BID [facility] Last Admin: 03/15/17 11:45 Dose: 1 drop - Labs Labs: 03/15/17 07:35 03/15/17 07:35 PT 25.1 SECONDS (9.7-12.2) H 03/14/17 10:56 INR 2.1 03/14/17 10:56 APTT 39 SECONDS (21-34) H 03/14/17 10:56 - Constitutional Appears: Non-toxic, No Acute Distress, Chronically Ill, Other (VERY WEAK) - Eye Exam Eye Exam: Periorbital swelling (R eye and redness ) - Respiratory Exam Respiratory Exam: Decreased Breath Sounds, NORMAL BREATHING PATTERN - Cardiovascular Exam Cardiovascular Exam: REGULAR RHYTHM, +S1, +S2 - GI/Abdominal Exam GI & Abdominal Exam: Soft Assessment and Plan - Assessment and Plan (Free Text) Assessment: A/P 76 yr old female with PMHX of myelodysplastic syndrome admitted with Severe anemia, s/p transfusion s/p mediport removal POD#2 today labs reviewed - hgb drops from 8.0- 7.6 D/W with Dr. daugherty , recommends to transfuse 2 units of PRBC and repeat labs in am will give lasix in between transfusion will repeat labs in am the above plan discussed with Dr. Foster and agrees
--- NOTE | 2017-03-15 14:35 | PN ---
NEUROLOGICAL PROBLEM: Clinical neuromuscular junctional disease superimposed with incidental right frontal possible meningioma with mass effect. PHYSICAL EXAMINATION: VITAL SIGNS: Blood pressure 115/67, mean arterial pressure of 83, respiratory rate 18, temperature 97.4, pulse rate 64 and regular. NEUROLOGIC: The patient is awake. Speech is clear. Examination consistent with right ptosis, external ophthalmoplegia, proximal weakness. She is quiet comfortable in breathing. The patient's Port-A-Cath has been removed yesterday. I would like to schedule her to have MRI of the brain to assist her intracranial lesion. Still the workup for neuromuscular junctional disease is still pending. Continue Mestinon for now. Javad Cota MD
--- NOTE | 2017-03-15 14:52 | MRI ---
PROCEDURE: MRI BRAIN WITHOUT CONTRAST HISTORY: brain tumor COMPARISON: CT of the head 03/12/2017 TECHNIQUE: Multiplanar, multisequence MR images of the brain were obtained without intravenous contrast enhancement. The patient reports an allergy to gadolinium. Contrast was not given. FINDINGS: HEMORRHAGE: None DWI: No evidence of an acute or early subacute infarction. BRAIN PARENCHYMA: There is an extra-axial mass in the interhemispheric fissure of the frontal lobe most likely arising from the anterior cranial fossa. This is most likely a meningioma. This measures 22 mm wide by 28 mm AP x 17 mm in height as seen on axial image 13 series 5 and sagittal image 12. There is edema in the right frontal lobe. Chronic microvascular changes are seen in the periventricular white matter. VENTRICLES: Unremarkable. No hydrocephalus. CRANIUM: Unremarkable. ORBITS: Grossly unremarkable. PARANASAL SINUSES/MASTOIDS: There is fluid in the left mastoid air cells VASCULAR SYSTEM: Skull base flow voids intact. OTHER FINDINGS: None. IMPRESSION: There is an extra-axial mass in the interhemispheric fissure of the frontal lobe most likely arising from the anterior cranial fossa. This is most likely a meningioma. This measures 22 mm wide by 28 mm AP x 17 mm in height.
--- NOTE | 2017-03-15 18:41 | CT ---
PROCEDURE: CT Abdomen and Pelvis without intravenous contrast HISTORY: GI bleed and alk phospatase 385 COMPARISON: 10/17/2016 CT thorax 07/21/2016 CT thorax abdomen and pelvis TECHNIQUE: Unenhanced study. Neither oral nor intravenous contrast administered. Sensitivity and specificity for acute inflammatory processes limited by the absence of oral and intravenous contrast. Radiation dose: Total exam DLP = 1108.14 mGy-cm. This CT exam was performed using one or more of the following dose reduction techniques: Automated exposure control, adjustment of the mA and/or kV according to patient size, and/or use of iterative reconstruction technique. FINDINGS: LOWER THORAX: Chronic interstitial changes of both lung bases including visualize lingula and right middle lobe. Stable hiatal hernia. Small pleural effusions bilaterally LIVER: Unremarkable liver GALLBLADDER AND BILE DUCTS: Status post cholecystectomy. No abnormality is seen in the gallbladder fossa. PANCREAS: Unremarkable. No gross lesion or ductal dilatation. SPLEEN: Unremarkable. ADRENALS: Unremarkable. No mass. KIDNEYS AND URETERS: No significant interval change compared to the prior examination(s). Hyperdense cysts identified bilaterally. 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 Bilateral nonobstructing renal calculi. VASCULATURE: Stable IVC filter position. No aortic aneurysm. BOWEL: Diverticulosis without an acute inflammatory component or other associated pathologic process. APPENDIX: Unremarkable. Normal appendix. PERITONEUM: Unremarkable. No free fluid. No free air. LYMPH NODES: Unremarkable. No enlarged lymph nodes. BLADDER: Contrast identified in an otherwise unremarkable urinary bladder. REPRODUCTIVE: Enlarged, presumably fibroid uterus. BONES: No acute fracture. OTHER FINDINGS: None. IMPRESSION: No acute findings related to/accounting for the clinical presentation. No significant interval change compared to the prior examination(s). Multiple benign and/or incidental findings described above.
--- NOTE | 2017-03-15 19:00 | CP.PCM.PN ---
Subjective - Date & Time of Evaluation Date of Evaluation: 03/15/17 Time of Evaluation: 09:00 - Subjective Subjective: weak afeb nad daughter at bedside Objective - Vital Signs/Intake and Output Vital Signs (last 24 hours): Temp Pulse Resp BP Pulse Ox 97.3 F L 62 18 130/72 100 03/15/17 15:30 03/15/17 16:30 03/15/17 15:30 03/15/17 16:30 03/15/17 15:30 Intake and Output: 03/15/17 03/15/17 06:59 18:59 Intake Total 350 Balance 350 - Medications Medications: Current Medications Acetaminophen/Codeine Phosphate (Tylenol/Codeine 300 Mg/30 Mg) 1 ea PO Q4 PRN PRN Reason: Pain, moderate (4-7) Last Admin: 03/12/17 03:39 Dose: 1 ea Albuterol Sulfate (Albuterol 0.042% Inhal Tricia (1.25mg/3ml) Ud) 1.25 mg INH RQ8 [facility] Last Admin: 03/15/17 15:45 Dose: Not Given Calcium/Vitamin D (Oscal-D 250 Mg-125 Units Tab) 1 tab PO DAILY [facility] Last Admin: 03/15/17 11:43 Dose: 1 tab Dextrose (Dextrose 50% Inj) 0 ml IVP .STAT PRN; Protocol PRN Reason: Hypoglycemia Protocol Last Admin: 03/14/17 06:59 Dose: 50 ml Famotidine (Pepcid) 20 mg IVP DAILY [facility] Last Admin: 03/15/17 11:43 Dose: 20 mg Ferrous Sulfate (Feosol) 325 mg PO DAILY [facility] Last Admin: 03/15/17 11:43 Dose: 325 mg Folic Acid (Folic Acid) 1 mg PO DAILY [facility] Last Admin: 03/15/17 11:42 Dose: 1 mg Furosemide (Lasix) 40 mg PO DAILY [facility] Last Admin: 03/15/17 11:54 Dose: 40 mg Furosemide (Lasix) 40 mg IVP ONCE ONE Stop: 03/15/17 19:01 Metronidazole (Flagyl) 500 mg in 100 mls @ 100 mls/hr IVPB Q8H [facility] Last Admin: 03/15/17 18:08 Dose: 100 mls/hr Tigecycline 50 mg/ Dextrose 100 mls @ 100 mls/hr IVPB Q12H [facility] Last Admin: 03/15/17 13:00 Dose: 100 mls/hr Insulin Glargine (Lantus) 8 unit SC HS [facility] Last Admin: 03/14/17 21:35 Dose: Not Given Insulin Human Regular (Novolin R) 0 unit SC ACHS [facility] PRN Reason: Protocol Last Admin: 03/15/17 16:35 Dose: Not Given Lactic Acid (Lac-Hydrin 12% Lotion (225 G)) 0 gm EXT BID [facility] Last Admin: 03/15/17 11:18 Dose: Not Given Loperamide HCl (Imodium) 2 mg PO Q4H PRN PRN Reason: Diarrhea Lorazepam (Ativan) 0.5 mg PO HS PRN PRN Reason: Anxiety Last Admin: 03/10/17 03:45 Dose: 0.5 mg Magnesium Oxide (Mag-Ox) 400 mg PO DAILY [facility] Last Admin: 03/15/17 11:42 Dose: 400 mg Multivitamins (Hexavitamin) 1 tab PO DAILY [facility] Last Admin: 03/15/17 11:43 Dose: 1 tab Ofloxacin (Ocuflox Ophth 0.3%) 0 ml OD QID [facility] Last Admin: 03/15/17 13:39 Dose: 1 drop Potassium Chloride (K-Dur 20 Meq Er Tab) 20 meq PO BID [facility] Last Admin: 03/15/17 11:42 Dose: 20 meq Prednisolone Acetate (Pred Forte 1% Opht Susp) 0 ml OD QID [facility] Last Admin: 03/15/17 14:35 Dose: Not Given Pyridostigmine [place] (Mestinon Tab) 60 mg PO TID [facility] Last Admin: 03/15/17 13:36 Dose: 60 mg Timolol Maleate (Timoptic 0.5% Ophth Soln) 1 drop OD BID [facility] Last Admin: 03/15/17 11:45 Dose: 1 drop - Labs Labs: 03/15/17 07:35 03/15/17 07:35 PT 25.1 SECONDS (9.7-12.2) H 03/14/17 10:56 INR 2.1 03/14/17 10:56 APTT 39 SECONDS (21-34) H 03/14/17 10:56 - Constitutional Appears: Non-toxic, Chronically Ill - Head Exam Head Exam: NORMOCEPHALIC - Eye Exam Eye Exam: PERRL - ENT Exam ENT Exam: Mucous Membranes Dry - Neck Exam Neck Exam: absent: Lymphadenopathy - Respiratory Exam Respiratory Exam: Decreased Breath Sounds - Cardiovascular Exam Cardiovascular Exam: REGULAR RHYTHM - GI/Abdominal Exam GI & Abdominal Exam: Distended, Hyperactive Bowel Sounds - Rectal Exam Rectal Exam: Deferred - Exam Exam: NORMAL INSPECTION - Extremities Exam Extremities Exam: absent: Pedal Edema - Back Exam Back Exam: absent: CVA tenderness (L), CVA tenderness (R) Assessment and Plan (1) Myelodysplasia (myelodysplastic syndrome) Status: Acute (2) Severe anemia Status: Acute (3) Acute on chronic diastolic (congestive) heart failure Status: Acute (4) Anemia Status: Acute (5) Degenerative disc disease at L5-S1 level Status: Acute (6) Dehydration Status: Acute (7) Diabetes mellitus type 2 in obese Status: Acute (8) Carbapenem-resistant bacterial infection Status: Acute (9) Carbapenem-resistant bacterial infection Status: Acute
[2017-03-15] MEDS: Potassium Chloride 20 mEq/15 ml LIQ UD PO SCH (20:21)
[2017-03-15] MEDS: (Lantus) Insulin Glargine, Recombinant SC SCH (21:30)
--- NOTE | 2017-03-15 23:03 | CP.PCM.PN ---
Subjective - Date & Time of Evaluation Date of Evaluation: 03/15/17 Time of Evaluation: 13:30 - Subjective Subjective: Patient somewhat confused. Hgb 7.6. Two units of packed cells requested. CT scan of the abdomen and pelvis requested because of elevated alkaline phospatase of 350. No significant new findings. She was also evaluated by Dr Prabhakar. Objective - Vital Signs/Intake and Output Vital Signs (last 24 hours): Temp Pulse Resp BP Pulse Ox 97.8 F 62 14 133/71 100 03/15/17 20:38 03/15/17 20:38 03/15/17 20:38 03/15/17 22:50 03/15/17 15:30 Intake and Output: 03/15/17 03/16/17 18:59 06:59 Intake Total 350 325 Balance 350 325 - Medications Medications: Current Medications Acetaminophen/Codeine Phosphate (Tylenol/Codeine 300 Mg/30 Mg) 1 ea PO Q4 PRN PRN Reason: Pain, moderate (4-7) Last Admin: 03/12/17 03:39 Dose: 1 ea Albuterol Sulfate (Albuterol 0.042% Inhal Tricia (1.25mg/3ml) Ud) 1.25 mg INH RQ8 [facility] Last Admin: 03/15/17 15:45 Dose: Not Given Calcium/Vitamin D (Oscal-D 250 Mg-125 Units Tab) 1 tab PO DAILY [facility] Last Admin: 03/15/17 11:43 Dose: 1 tab Dextrose (Dextrose 50% Inj) 0 ml IVP .STAT PRN; Protocol PRN Reason: Hypoglycemia Protocol Last Admin: 03/14/17 06:59 Dose: 50 ml Famotidine (Pepcid) 20 mg IVP DAILY [facility] Last Admin: 03/15/17 11:43 Dose: 20 mg Ferrous Sulfate (Feosol) 325 mg PO DAILY [facility] Last Admin: 03/15/17 11:43 Dose: 325 mg Folic Acid (Folic Acid) 1 mg PO DAILY [facility] Last Admin: 03/15/17 11:42 Dose: 1 mg Furosemide (Lasix) 40 mg PO DAILY [facility] Last Admin: 03/15/17 11:54 Dose: 40 mg Metronidazole (Flagyl) 500 mg in 100 mls @ 100 mls/hr IVPB Q8H [facility] Last Admin: 03/15/17 18:08 Dose: 100 mls/hr Tigecycline 50 mg/ Dextrose 100 mls @ 100 mls/hr IVPB Q12H [facility] Last Admin: 03/15/17 13:00 Dose: 100 mls/hr Insulin Glargine (Lantus) 8 unit SC HS [facility] Last Admin: 03/15/17 21:30 Dose: Not Given Insulin Human Regular (Novolin R) 0 unit SC ACHS [facility] PRN Reason: Protocol Last Admin: 03/15/17 21:10 Dose: Not Given Lactic Acid (Lac-Hydrin 12% Lotion (225 G)) 0 gm EXT BID [facility] Last Admin: 03/15/17 20:20 Dose: Not Given Loperamide HCl (Imodium) 2 mg PO Q4H PRN PRN Reason: Diarrhea Lorazepam (Ativan) 0.5 mg PO HS PRN PRN Reason: Anxiety Last Admin: 03/10/17 03:45 Dose: 0.5 mg Magnesium Oxide (Mag-Ox) 400 mg PO DAILY [facility] Last Admin: 03/15/17 11:42 Dose: 400 mg Multivitamins (Hexavitamin) 1 tab PO DAILY [facility] Last Admin: 03/15/17 11:43 Dose: 1 tab Ofloxacin (Ocuflox Ophth 0.3%) 0 ml OD QID [facility] Last Admin: 03/15/17 21:30 Dose: Not Given Potassium Chloride (Potassium Chloride Oral Soln) 20 meq PO BID [facility] Last Admin: 03/15/17 20:21 Dose: 20 meq Prednisolone Acetate (Pred Forte 1% Opht Susp) 0 ml OD QID [facility] Last Admin: 03/15/17 21:10 Dose: Not Given Pyridostigmine [place] (Mestinon Tab) 60 mg PO TID [facility] Last Admin: 03/15/17 20:21 Dose: 60 mg Timolol Maleate (Timoptic 0.5% Ophth Soln) 1 drop OD BID [facility] Last Admin: 03/15/17 20:22 Dose: 1 drop - Labs Labs: 03/15/17 07:35 03/15/17 07:35 PT 25.1 SECONDS (9.7-12.2) H 03/14/17 10:56 INR 2.1 03/14/17 10:56 APTT 39 SECONDS (21-34) H 03/14/17 10:56 - Constitutional Appears: No Acute Distress, Chronically Ill - Head Exam Head Exam: NORMAL INSPECTION - Eye Exam Eye Exam: Normal appearance, Periorbital swelling Pupil Exam: NORMAL ACCOMODATION - ENT Exam ENT Exam: Normal Exam - Neck Exam Neck Exam: Normal Inspection - Respiratory Exam Respiratory Exam: Decreased Breath Sounds - Cardiovascular Exam Cardiovascular Exam: REGULAR RHYTHM - GI/Abdominal Exam GI & Abdominal Exam: Hyperactive Bowel Sounds - Rectal Exam Rectal Exam: Deferred - Exam Exam: Bladder Distension External exam: NORMAL EXTERNAL EXAM - Extremities Exam Extremities Exam: Joint Swelling - Back Exam Back Exam: NORMAL INSPECTION - Neurological Exam Neurological Exam: Altered - Psychiatric Exam Psychiatric exam: Depressed Assessment and Plan (1) Myelodysplasia (myelodysplastic syndrome) Status: Acute (2) Severe anemia Status: Acute (3) Degenerative disc disease at L5-S1 level Status: Acute (4) Osteoarthritis Status: Acute (5) Thrombocytopenia Status: Acute (6) Sepsis Status: Acute
[2017-03-16] MEDS: Tigecycline 50 MG in Dextrose 5% In Water 100 ML IVPB SCH (00:05)
[2017-03-16] MEDS: metroNIDAZOLE IV 500 mg/100 ml 500 MG/100 ML BAG IVPB SCH ×3 (04:58→18:03)
[2017-03-16 07:14] LABS: WHITE BLOOD COUNT 18.3 K/uL (4.8-10.8)
[2017-03-16 07:25] LABS: HEMATOCRIT 35.4 % (34.0-47.0); LYMPH # 2.1 K/uL (1.0-4.3); LYMPH % 11.7 % (20.0-40.0); MEAN CORPUSCULAR HEMOGLOBIN 30.6 pg (27.0-31.0); MEAN CORPUSCULAR HGB CONC 32.7 g/dL (33.0-37.0); MEAN PLATELET VOLUME 10.3 fL (7.2-11.7); MONO # 6.2 K/uL (0.0-0.8); NRBC % 0.5 % (0.0-2.0); PLATELET COUNT 51 K/uL (130-400); RED CELL DISTRIBUTION WIDTH 19.6 % (11.5-14.5)
[2017-03-16 07:29] LABS: BLOOD UREA NITROGEN 16 mg/dL (7-17); CALCIUM 7.2 mg/dl (8.6-10.4); CARBON DIOXIDE 26 mmol/L (22-30); CHLORIDE 107 mmol/L (98-107); GFR AFRICAN-AMERICAN > 60; GLUCOSE,RANDOM 112 mg/dL (65-105); POTASSIUM 4.4 mmol/L (3.6-5.2); SODIUM 140 mmol/L (132-148)
[2017-03-16 07:33] LABS: MEAN CELL VOLUME 93.6 fL (81.0-99.0)
[2017-03-16] MEDS: (Novolin R) Insulin Human Regular 100 units/ml vial SC SCH ×4 (08:12→21:12)
[2017-03-16] MEDS: Albuterol 0.042% Inhal Sol (1.25 mg/3 mL) UD INH SCH ×2 (08:35→16:21)
--- NOTE | 2017-03-16 08:45 | OP ---
PROCEDURE DATE: 03/14/2017 PREOPERATIVE DIAGNOSIS: Possible port infection. POSTOPERATIVE DIAGNOSIS: Possible port infection. PROCEDURE CARRIED OUT: Removal of Port-A-Cath, right jugular vein. SURGEON: Oliverio Bateman Jr., MD QUALITY CONTROL SPECIALIST: None. ANESTHESIOLOGIST: Tg Pittman CRNA. INDICATIONS: A 76-year-old woman with profound thrombocytopenia, who has multiple cultures with Pseudomonas in the blood, suspected to have possible port infection. Clinically, it does not, looking from the outside, but given the number of blood cultures positive and her low platelet count, I thought this was the safest thing to do. The patient has intravenous access by means of a PICC line. PROCEDURE: The patient was given local anesthesia by infiltration 1% Xylocaine. The catheter was removed intact and submitted for examination. Cultures were taken of the wound, but there was no signs of purulence. The wound was then closed and Steri-Strips were applied. Blood loss was less than 5 mL. Operation carried out was removal of Port-A-Cath. Oliverio Bateman Jr., MD cc: Junito Foster MD
[2017-03-16 09:20] LABS: NEUTROPHIL 63 % (50-75); TOTAL CELLS COUNTED 100
[2017-03-16] MEDS: PrednisoLONE 1% Opht Susp(5 ml) OD SCH ×4 (09:42→22:04)
[2017-03-16] MEDS: Ofloxacin 0.3% Ophth Soln OD SCH ×4 (09:42→22:04)
[2017-03-16] MEDS: Ammonium Lactate 12% Lotion (225 g) EXT SCH ×2 (09:43→18:03)
[2017-03-16] MEDS: Potassium Chloride 20 mEq/15 ml LIQ UD PO SCH ×2 (10:48→21:25)
[2017-03-16] MEDS: Calcium-Vit D 250 mg-125 Units Tab UD PO SCH (10:49)
[2017-03-16] MEDS: Multiple Vitamins Tab PO SCH (10:49)
[2017-03-16] MEDS: Magnesium Oxide 400 mg Tab UD PO SCH (10:49)
[2017-03-16] MEDS: WATER IVPB SCH (11:02)
[2017-03-16] MEDS: DEXTROSE 5% IVPB SCH (11:02)
[2017-03-16] MEDS: TIGECYCLINE IVPB SCH (11:02)
--- NOTE | 2017-03-16 16:09 | CP.PCM.PN ---
Subjective - Date & Time of Evaluation Date of Evaluation: 03/16/17 Time of Evaluation: 08:00 - Subjective Subjective: extropion noted has meningioma cont suppotive care Objective - Vital Signs/Intake and Output Vital Signs (last 24 hours): Temp Pulse Resp BP Pulse Ox 97.4 F L 57 L 20 128/77 100 03/16/17 07:15 03/16/17 07:15 03/16/17 07:15 03/16/17 10:49 03/16/17 07:15 Intake and Output: 03/16/17 03/16/17 06:59 18:59 Intake Total 650 Balance 650 - Medications Medications: Current Medications Acetaminophen/Codeine Phosphate (Tylenol/Codeine 300 Mg/30 Mg) 1 ea PO Q4 PRN PRN Reason: Pain, moderate (4-7) Last Admin: 03/12/17 03:39 Dose: 1 ea Albuterol Sulfate (Albuterol 0.042% Inhal Tricia (1.25mg/3ml) Ud) 1.25 mg INH RQ8 [facility] Last Admin: 03/16/17 08:35 Dose: Not Given Calcium/Vitamin D (Oscal-D 250 Mg-125 Units Tab) 1 tab PO DAILY [facility] Last Admin: 03/16/17 10:49 Dose: 1 tab Dextrose (Dextrose 50% Inj) 0 ml IVP .STAT PRN; Protocol PRN Reason: Hypoglycemia Protocol Last Admin: 03/14/17 06:59 Dose: 50 ml Famotidine (Pepcid) 20 mg IVP DAILY [facility] Last Admin: 03/16/17 10:48 Dose: 20 mg Ferrous Sulfate (Feosol) 325 mg PO DAILY [facility] Last Admin: 03/16/17 10:49 Dose: 325 mg Folic Acid (Folic Acid) 1 mg PO DAILY [facility] Last Admin: 03/16/17 10:49 Dose: 1 mg Furosemide (Lasix) 40 mg PO DAILY [facility] Last Admin: 03/16/17 10:49 Dose: 40 mg Metronidazole (Flagyl) 500 mg in 100 mls @ 100 mls/hr IVPB Q8H [facility] Last Admin: 03/16/17 10:50 Dose: 100 mls/hr Tigecycline 50 mg/ Dextrose 50 mls @ 100 mls/hr IVPB Q12H [facility] Last Admin: 03/16/17 11:02 Dose: 100 mls/hr Insulin Glargine (Lantus) 8 unit SC HS [facility] Last Admin: 03/15/17 21:30 Dose: Not Given Insulin Human Regular (Novolin R) 0 unit SC ACHS [facility] PRN Reason: Protocol Last Admin: 03/16/17 12:25 Dose: 1 unit Lactic Acid (Lac-Hydrin 12% Lotion (225 G)) 0 gm EXT BID [facility] Last Admin: 03/16/17 09:43 Dose: 1 applic Loperamide HCl (Imodium) 2 mg PO Q4H PRN PRN Reason: Diarrhea Lorazepam (Ativan) 0.5 mg PO HS PRN PRN Reason: Anxiety Last Admin: 03/10/17 03:45 Dose: 0.5 mg Magnesium Oxide (Mag-Ox) 400 mg PO DAILY [facility] Last Admin: 03/16/17 10:49 Dose: 400 mg Multivitamins (Hexavitamin) 1 tab PO DAILY [facility] Last Admin: 03/16/17 10:49 Dose: 1 tab Ofloxacin (Ocuflox Ophth 0.3%) 0 ml OD QID [facility] Last Admin: 03/16/17 14:59 Dose: 1 drop Potassium Chloride (Potassium Chloride Oral Soln) 20 meq PO BID [facility] Last Admin: 03/16/17 10:48 Dose: 20 meq Prednisolone Acetate (Pred Forte 1% Opht Susp) 0 ml OD QID [facility] Last Admin: 03/16/17 14:58 Dose: 1 drop Pyridostigmine [place] (Mestinon Tab) 60 mg PO TID [facility] Last Admin: 03/16/17 14:58 Dose: 60 mg Timolol Maleate (Timoptic 0.5% Ophth Soln) 1 drop OD BID [facility] Last Admin: 03/16/17 09:43 Dose: 1 drop - Labs Labs: 03/16/17 07:03 03/16/17 07:03 PT 25.1 SECONDS (9.7-12.2) H 03/14/17 10:56 INR 2.1 03/14/17 10:56 APTT 39 SECONDS (21-34) H 03/14/17 10:56 - Constitutional Appears: Confused - Head Exam Head Exam: NORMOCEPHALIC - Eye Exam Eye Exam: absent: Scleral icterus - ENT Exam ENT Exam: Mucous Membranes Dry - Neck Exam Neck Exam: absent: Lymphadenopathy - Respiratory Exam Respiratory Exam: Decreased Breath Sounds - Cardiovascular Exam Cardiovascular Exam: REGULAR RHYTHM - GI/Abdominal Exam GI & Abdominal Exam: Distended - Rectal Exam Rectal Exam: Deferred - Exam Exam: NORMAL INSPECTION - Back Exam Back Exam: absent: CVA tenderness (L), CVA tenderness (R) Assessment and Plan (1) Myelodysplasia (myelodysplastic syndrome) Status: Acute (2) Severe anemia Status: Acute (3) Acute on chronic diastolic (congestive) heart failure Status: Acute (4) Anemia Status: Acute (5) Degenerative disc disease at L5-S1 level Status: Acute (6) Dehydration Status: Acute (7) Diabetes mellitus type 2 in obese Status: Acute (8) Carbapenem-resistant bacterial infection Status: Acute (9) Carbapenem-resistant bacterial infection Status: Acute
--- NOTE | 2017-03-16 18:13 | VASCLAB ---
PROCEDURE: HISTORY: Carotid stenosis COMPARISON: None available. TECHNIQUE: Grayscale and duplex Doppler evaluation of the cervical carotid and vertebral arteries were performed. The common carotid, carotid bifurcations and cervical Internal Carotid Artery (ICA) and proximal External Carotid Artery (ECA) were evaluated. The vertebral arteries were evaluated for gross patency and flow direction. Report prepared by Mitchel Quinn, BS, RVT FINDINGS: RIGHT CAROTID ARTERIES: 1. Common Carotid Artery: No significant focal plaque formation of the right common carotid artery. Maximum Peak Systolic velocity: 109 cm/sec: End-diastolic velocity 0 cm/sec. 2. Carotid Bifurcation: plaque formation. Maximum Peak Systolic velocity: 53 cm/sec: End-diastolic velocity 10 cm/sec. 3. Internal Carotid Artery: Plaque description: Heterogeneous 3.1. Proximal Segment: Peak systolic velocity 57 cm/sec: End-diastolic velocity 13 cm/sec - % stenosis 0-15% 3.2. Middle Segment: Peak systolic velocity 55 cm/sec: End-diastolic velocity 14 cm/sec - % stenosis 0-15% 3.3. Distal Segment: Peak systolic velocity 93 cm/sec: End-diastolic velocity 19 cm/sec - % stenosis 0-15% 4. External Carotid Artery: No significant focal plaque formation. Peak systolic velocity 77 cm/sec 5. ICA/CCA Ratio: 1.8 LEFT CAROTID ARTERIES: 1. Common Carotid Artery: No significant focal plaque formation of the left common carotid artery. Maximum Peak Systolic velocity: 146 cm/sec: End-diastolic velocity 18 cm/sec. 2. Carotid Bifurcation: plaque formation. Maximum Peak Systolic velocity: 48 cm/sec: End-diastolic velocity 8 cm/sec. 3. Internal Carotid Artery: Plaque description: Heterogeneous 3.1. Proximal Segment: Peak systolic velocity 90 cm/sec: End-diastolic velocity 16 cm/sec - % stenosis 0-15% 3.2. Middle Segment: Peak systolic velocity 90 cm/sec: End-diastolic velocity 22 cm/sec - % stenosis 0-15% 3.3. Distal Segment: Peak systolic velocity 88 cm/sec: End-diastolic velocity 19 cm/sec - % stenosis 0-15% 4. External Carotid Artery: No significant focal plaque formation. Peak systolic velocity 100 cm/sec 5. ICA/CCA Ratio: 1.7 VERTEBRAL ARTERIES: 1. Right Vertebral Artery: The right vertebral artery flow direction is antegrade. 2. Left Vertebral Artery: The left vertebral artery flow direction is antegrade. OTHER FINDINGS: 1. Right Brachial Blood pressure: 130 mmHg. 2. Left Brachial Blood pressure: Unable to obtain due to IV line. IMPRESSION: RIGHT: Duplex scan does not suggest hemodynamically significant stenosis of the right extracranial carotid arteries. LEFT: Duplex scan does not suggest hemodynamically significant stenosis of the left extracranial carotid arteries.
[2017-03-16] MEDS: (Lantus) Insulin Glargine, Recombinant SC SCH (21:12)
--- NOTE | 2017-03-16 22:59 | CP.PCM.PN ---
Subjective - Date & Time of Evaluation Date of Evaluation: 03/16/17 Time of Evaluation: 13:40 - Subjective Subjective: Patient feels stronger. Platlet count 51,000. Ct scan of the brain reveals cerbral meningoma. Dr Cota to evaluate. Countinue antibiotic therapy. Objective - Vital Signs/Intake and Output Vital Signs (last 24 hours): Temp Pulse Resp BP Pulse Ox 97.2 F L 65 20 128/89 99 03/16/17 16:06 03/16/17 16:06 03/16/17 16:06 03/16/17 16:06 03/16/17 16:06 Intake and Output: 03/16/17 03/17/17 18:59 06:59 Intake Total 300 Balance 300 - Medications Medications: Current Medications Acetaminophen/Codeine Phosphate (Tylenol/Codeine 300 Mg/30 Mg) 1 ea PO Q4 PRN PRN Reason: Pain, moderate (4-7) Last Admin: 03/12/17 03:39 Dose: 1 ea Albuterol Sulfate (Albuterol 0.042% Inhal Tricia (1.25mg/3ml) Ud) 1.25 mg INH RQ8 JOSIE Last Admin: 03/16/17 16:21 Dose: 1.25 mg Calcium/Vitamin D (Oscal-D 250 Mg-125 Units Tab) 1 tab PO DAILY [facility]OS[facility] Last Admin: 03/16/17 10:49 Dose: 1 tab Dextrose (Dextrose 50% Inj) 0 ml IVP .STAT PRN; Protocol PRN Reason: Hypoglycemia Protocol Last Admin: 03/14/17 06:59 Dose: 50 ml Famotidine (Pepcid) 20 mg IVP DAILY [facility] Last Admin: 03/16/17 10:48 Dose: 20 mg Ferrous Sulfate (Feosol) 325 mg PO DAILY [facility] Last Admin: 03/16/17 10:49 Dose: 325 mg Folic Acid (Folic Acid) 1 mg PO DAILY [facility] Last Admin: 03/16/17 10:49 Dose: 1 mg Furosemide (Lasix) 40 mg PO DAILY [facility] Last Admin: 03/16/17 10:49 Dose: 40 mg Metronidazole (Flagyl) 500 mg in 100 mls @ 100 mls/hr IVPB Q8H [facility] Last Admin: 03/16/17 18:03 Dose: 100 mls/hr Tigecycline 50 mg/ Dextrose 50 mls @ 100 mls/hr IVPB Q12H [facility] Last Admin: 03/16/17 11:02 Dose: 100 mls/hr Insulin Glargine (Lantus) 8 unit SC HS [facility] Last Admin: 03/16/17 21:12 Dose: Not Given Insulin Human Regular (Novolin R) 0 unit SC ACHS JOSIE PRN Reason: Protocol Last Admin: 03/16/17 21:12 Dose: Not Given Lactic Acid (Lac-Hydrin 12% Lotion (225 G)) 0 gm EXT BID [facility] Last Admin: 03/16/17 18:03 Dose: 1 applic Loperamide HCl (Imodium) 2 mg PO Q4H PRN PRN Reason: Diarrhea Lorazepam (Ativan) 0.5 mg PO HS PRN PRN Reason: Anxiety Last Admin: 03/10/17 03:45 Dose: 0.5 mg Magnesium Oxide (Mag-Ox) 400 mg PO DAILY [facility] Last Admin: 03/16/17 10:49 Dose: 400 mg Multivitamins (Hexavitamin) 1 tab PO DAILY [facility] Last Admin: 03/16/17 10:49 Dose: 1 tab Ofloxacin (Ocuflox Ophth 0.3%) 0 ml OD QID [facility] Last Admin: 03/16/17 22:04 Dose: Not Given Potassium Chloride (Potassium Chloride Oral Soln) 20 meq PO BID [facility] Last Admin: 03/16/17 21:25 Dose: Not Given Prednisolone Acetate (Pred Forte 1% Opht Susp) 0 ml OD QID [facility] Last Admin: 03/16/17 22:04 Dose: Not Given Pyridostigmine [place] (Mestinon Tab) 60 mg PO TID [facility] Last Admin: 03/16/17 18:04 Dose: 60 mg Timolol Maleate (Timoptic 0.5% Ophth Soln) 1 drop OD BID [facility] Last Admin: 03/16/17 18:10 Dose: 1 drop - Labs Labs: 03/16/17 07:03 03/16/17 07:03 PT 25.1 SECONDS (9.7-12.2) H 03/14/17 10:56 INR 2.1 03/14/17 10:56 APTT 39 SECONDS (21-34) H 03/14/17 10:56 - Constitutional Appears: No Acute Distress - Head Exam Head Exam: NORMOCEPHALIC - Eye Exam Eye Exam: Periorbital tenderness - ENT Exam ENT Exam: Normal Exam - Neck Exam Neck Exam: Normal Inspection - Respiratory Exam Respiratory Exam: Decreased Breath Sounds - GI/Abdominal Exam GI & Abdominal Exam: Hyperactive Bowel Sounds - Rectal Exam Rectal Exam: Deferred - Exam External exam: NORMAL EXTERNAL EXAM - Extremities Exam Extremities Exam: Joint Swelling - Back Exam Back Exam: NORMAL INSPECTION - Neurological Exam Neurological Exam: Awake - Psychiatric Exam Psychiatric exam: Depressed - Skin Skin Exam: Dry Assessment and Plan (1) Myelodysplasia (myelodysplastic syndrome) Status: Acute (2) Severe anemia Status: Acute (3) Degenerative disc disease at L5-S1 level Status: Acute (4) Osteoarthritis Status: Acute (5) Thrombocytopenia Status: Acute (6) Sepsis Status: Acute
[2017-03-17] MEDS: Albuterol 0.042% Inhal Sol (1.25 mg/3 mL) UD INH SCH ×2 (00:12→08:21)
[2017-03-17] MEDS: WATER IVPB SCH ×2 (00:47→12:40)
[2017-03-17] MEDS: DEXTROSE 5% IVPB SCH ×2 (00:47→12:40)
[2017-03-17] MEDS: TIGECYCLINE IVPB SCH ×2 (00:47→12:40)
[2017-03-17] MEDS: metroNIDAZOLE IV 500 mg/100 ml 500 MG/100 ML BAG IVPB SCH ×3 (01:28→19:01)
[2017-03-17] MEDS: (Novolin R) Insulin Human Regular 100 units/ml vial SC SCH ×4 (07:55→21:28)
--- NOTE | 2017-03-17 08:43 | RAD ---
Chest x-ray single frontal view History: Pleural effusion. Comparison: 03/14/2017 Findings: Interval removal of a right chest wall port. Persistent small left pleural effusion. Persistent diffuse increased interstitial lung markings which may represent underlying edema and or infiltrate. Persistent more prominent consolidative changes in the right suprahilar region, left suprahilar region as well as the left lung base. Cardiomegaly. Degenerative changes in the spine and shoulders. Impression: Interval removal of a right chest wall port. Persistent small left pleural effusion. Persistent diffuse increased interstitial lung markings which may represent underlying edema and or infiltrate. Persistent more prominent consolidative changes in the right suprahilar region, left suprahilar region as well as the left lung base. Cardiomegaly.
[2017-03-17] MEDS: Magnesium Oxide 400 mg Tab UD PO SCH (12:37)
[2017-03-17] MEDS: Calcium-Vit D 250 mg-125 Units Tab UD PO SCH (12:39)
[2017-03-17] MEDS: Ofloxacin 0.3% Ophth Soln OD SCH ×4 (12:41→21:31)
[2017-03-17] MEDS: Ammonium Lactate 12% Lotion (225 g) EXT SCH ×2 (12:41→18:43)
[2017-03-17] MEDS: PrednisoLONE 1% Opht Susp(5 ml) OD SCH ×4 (12:42→21:31)
[2017-03-17] MEDS: Potassium Chloride 20 mEq/15 ml LIQ UD PO SCH ×2 (12:51→18:40)
[2017-03-17] MEDS: Multiple Vitamins Tab PO SCH (12:53)
[2017-03-17] MEDS: (Lantus) Insulin Glargine, Recombinant SC SCH (21:26)
[2017-03-18] MEDS: WATER IVPB SCH ×2 (00:22→12:17)
[2017-03-18] MEDS: TIGECYCLINE IVPB SCH ×2 (00:22→12:17)
[2017-03-18] MEDS: DEXTROSE 5% IVPB SCH ×2 (00:22→12:17)
[2017-03-18] MEDS: metroNIDAZOLE IV 500 mg/100 ml 500 MG/100 ML BAG IVPB SCH ×3 (01:49→18:06)
[2017-03-18] MEDS: (Novolin R) Insulin Human Regular 100 units/ml vial SC SCH ×4 (07:25→22:04)
--- NOTE | 2017-03-18 08:51 | CP.PCM.PN ---
Subjective - Date & Time of Evaluation Date of Evaluation: 03/17/17 Time of Evaluation: 15:35 - Subjective Subjective: Patient wants to get up and sit in chair. Complains of fatigue. Right eye still inflamed. HCT up to 35 and platlets 51,000. Ms Jaeger's son at the bedside. Objective - Vital Signs/Intake and Output Vital Signs (last 24 hours): Temp Pulse Resp BP Pulse Ox 97.3 F L 72 20 130/83 99 03/18/17 08:04 03/18/17 08:04 03/18/17 08:04 03/18/17 08:04 03/18/17 08:04 - Medications Medications: Current Medications Acetaminophen/Codeine Phosphate (Tylenol/Codeine 300 Mg/30 Mg) 1 ea PO Q4 PRN PRN Reason: Pain, moderate (4-7) Last Admin: 03/12/17 03:39 Dose: 1 ea Calcium/Vitamin D (Oscal-D 250 Mg-125 Units Tab) 1 tab PO DAILY [facility] Last Admin: 03/17/17 12:39 Dose: 1 tab Dextrose (Dextrose 50% Inj) 0 ml IVP .STAT PRN; Protocol PRN Reason: Hypoglycemia Protocol Last Admin: 03/14/17 06:59 Dose: 50 ml Famotidine (Pepcid) 20 mg IVP DAILY [facility] Last Admin: 03/17/17 12:39 Dose: 20 mg Ferrous Sulfate (Feosol) 325 mg PO DAILY [facility] Last Admin: 03/17/17 12:39 Dose: 325 mg Folic Acid (Folic Acid) 1 mg PO DAILY [facility] Last Admin: 03/17/17 12:38 Dose: 1 mg Furosemide (Lasix) 40 mg PO DAILY [facility] Last Admin: 03/17/17 12:38 Dose: 40 mg Metronidazole (Flagyl) 500 mg in 100 mls @ 100 mls/hr IVPB Q8H [facility] Last Admin: 03/18/17 01:49 Dose: 100 mls/hr Tigecycline 50 mg/ Dextrose 50 mls @ 100 mls/hr IVPB Q12H [facility] Last Admin: 03/18/17 00:22 Dose: 100 mls/hr Insulin Glargine (Lantus) 8 unit SC HS [facility] Last Admin: 03/17/17 21:26 Dose: Not Given Insulin Human Regular (Novolin R) 0 unit SC ACHS JOSIE PRN Reason: Protocol Last Admin: 03/18/17 07:25 Dose: Not Given Lactic Acid (Lac-Hydrin 12% Lotion (225 G)) 0 gm EXT BID [facility] Last Admin: 03/17/17 18:43 Dose: 1 applic Loperamide HCl (Imodium) 2 mg PO Q4H PRN PRN Reason: Diarrhea Lorazepam (Ativan) 0.5 mg PO HS PRN PRN Reason: Anxiety Last Admin: 03/18/17 04:34 Dose: 0.5 mg Magnesium Oxide (Mag-Ox) 400 mg PO DAILY [facility] Last Admin: 03/17/17 12:37 Dose: 400 mg Multivitamins (Hexavitamin) 1 tab PO DAILY [facility] Last Admin: 03/17/17 12:53 Dose: Not Given Ofloxacin (Ocuflox Ophth 0.3%) 0 ml OD QID [facility] Last Admin: 03/17/17 21:31 Dose: 1 drop Potassium Chloride (Potassium Chloride Oral Soln) 20 meq PO BID [facility] Last Admin: 03/17/17 18:40 Dose: 20 meq Prednisolone Acetate (Pred Forte 1% Opht Susp) 0 ml OD QID [facility] Last Admin: 03/17/17 21:31 Dose: 1 drop Pyridostigmine [place] (Mestinon Tab) 60 mg PO TID [facility] Last Admin: 03/17/17 18:39 Dose: 60 mg Timolol Maleate (Timoptic 0.5% Ophth Soln) 1 drop OD BID [facility] Last Admin: 03/17/17 18:41 Dose: 1 drop - Labs Labs: 03/16/17 07:03 03/16/17 07:03 PT 25.1 SECONDS (9.7-12.2) H 03/14/17 10:56 INR 2.1 03/14/17 10:56 APTT 39 SECONDS (21-34) H 03/14/17 10:56 - Constitutional Appears: Chronically Ill - Head Exam Head Exam: NORMOCEPHALIC - Neck Exam Neck Exam: Normal Inspection - Respiratory Exam Respiratory Exam: Decreased Breath Sounds - Cardiovascular Exam Cardiovascular Exam: REGULAR RHYTHM - GI/Abdominal Exam GI & Abdominal Exam: Hyperactive Bowel Sounds - Rectal Exam Rectal Exam: Deferred - Exam External exam: NORMAL EXTERNAL EXAM - Extremities Exam Extremities Exam: Tenderness - Back Exam Back Exam: NORMAL INSPECTION - Neurological Exam Neurological Exam: Oriented x3 - Psychiatric Exam Psychiatric exam: Depressed - Skin Skin Exam: Dry Assessment and Plan (1) Myelodysplasia (myelodysplastic syndrome) Status: Acute (2) Severe anemia Status: Acute (3) Degenerative disc disease at L5-S1 level Status: Acute (4) Osteoarthritis Status: Acute (5) Thrombocytopenia Status: Acute (6) Sepsis Status: Acute
[2017-03-18] MEDS: Potassium Chloride 20 mEq/15 ml LIQ UD PO SCH ×2 (09:11→18:07)
[2017-03-18] MEDS: Calcium-Vit D 250 mg-125 Units Tab UD PO SCH (09:11)
[2017-03-18] MEDS: Acetaminophen-Codeine 300/30 mg Tab PO PRN (09:12)
[2017-03-18] MEDS: Ammonium Lactate 12% Lotion (225 g) EXT SCH ×2 (09:13→18:50)
[2017-03-18] MEDS: Multiple Vitamins Tab PO SCH (09:13)
[2017-03-18] MEDS: Magnesium Oxide 400 mg Tab UD PO SCH (09:13)
[2017-03-18] MEDS: Ofloxacin 0.3% Ophth Soln OD SCH ×4 (09:14→22:04)
[2017-03-18] MEDS: PrednisoLONE 1% Opht Susp(5 ml) OD SCH ×4 (09:14→22:04)
[2017-03-18 12:58] LABS: ACETYLCHOLINE REC BIND AB 0.41 nmol/L (<=0.30)
--- NOTE | 2017-03-18 15:07 | CP.PCM.PN ---
Subjective - Date & Time of Evaluation Date of Evaluation: 03/18/17 Time of Evaluation: 09:00 - Subjective Subjective: right eye noted has bacteremia sepsis +meningioma cont rx as per dr Larsen Objective - Vital Signs/Intake and Output Vital Signs (last 24 hours): Temp Pulse Resp BP Pulse Ox 97.3 F L 72 20 130/83 99 03/18/17 08:04 03/18/17 08:04 03/18/17 08:04 03/18/17 09:12 03/18/17 08:04 - Medications Medications: Current Medications Acetaminophen/Codeine Phosphate (Tylenol/Codeine 300 Mg/30 Mg) 1 ea PO Q4 PRN PRN Reason: Pain, moderate (4-7) Last Admin: 03/18/17 09:12 Dose: 1 ea Calcium/Vitamin D (Oscal-D 250 Mg-125 Units Tab) 1 tab PO DAILY [facility] Last Admin: 03/18/17 09:11 Dose: 1 tab Dextrose (Dextrose 50% Inj) 0 ml IVP .STAT PRN; Protocol PRN Reason: Hypoglycemia Protocol Last Admin: 03/14/17 06:59 Dose: 50 ml Famotidine (Pepcid) 20 mg IVP DAILY [facility] Last Admin: 03/18/17 09:11 Dose: 20 mg Ferrous Sulfate (Feosol) 325 mg PO DAILY [facility] Last Admin: 03/18/17 09:12 Dose: 325 mg Folic Acid (Folic Acid) 1 mg PO DAILY [facility] Last Admin: 03/18/17 09:13 Dose: 1 mg Furosemide (Lasix) 40 mg PO DAILY [facility] Last Admin: 03/18/17 09:12 Dose: 40 mg Metronidazole (Flagyl) 500 mg in 100 mls @ 100 mls/hr IVPB Q8H [facility] Last Admin: 03/18/17 09:15 Dose: 100 mls/hr Tigecycline 50 mg/ Dextrose 50 mls @ 100 mls/hr IVPB Q12H [facility] Last Admin: 03/18/17 12:17 Dose: 100 mls/hr Insulin Glargine (Lantus) 8 unit SC HS [facility] Last Admin: 03/17/17 21:26 Dose: Not Given Insulin Human Regular (Novolin R) 0 unit SC ACHS JOSIE PRN Reason: Protocol Last Admin: 03/18/17 12:20 Dose: Not Given Lactic Acid (Lac-Hydrin 12% Lotion (225 G)) 0 gm EXT BID [facility] Last Admin: 03/18/17 09:13 Dose: 1 applic Loperamide HCl (Imodium) 2 mg PO Q4H PRN PRN Reason: Diarrhea Last Admin: 03/18/17 09:11 Dose: 2 mg Lorazepam (Ativan) 0.5 mg PO HS PRN PRN Reason: Anxiety Last Admin: 03/18/17 04:34 Dose: 0.5 mg Magnesium Oxide (Mag-Ox) 400 mg PO DAILY [facility] Last Admin: 03/18/17 09:13 Dose: 400 mg Multivitamins (Hexavitamin) 1 tab PO DAILY [facility] Last Admin: 03/18/17 09:13 Dose: 1 tab Ofloxacin (Ocuflox Ophth 0.3%) 0 ml OD QID [facility] Last Admin: 03/18/17 13:45 Dose: 1 drop Potassium Chloride (Potassium Chloride Oral Soln) 20 meq PO BID [facility] Last Admin: 03/18/17 09:11 Dose: 20 meq Prednisolone Acetate (Pred Forte 1% Opht Susp) 0 ml OD QID [facility] Last Admin: 03/18/17 13:44 Dose: 1 drop Pyridostigmine [place] (Mestinon Tab) 60 mg PO TID [facility] Last Admin: 03/18/17 13:44 Dose: 60 mg Timolol Maleate (Timoptic 0.5% Ophth Soln) 1 drop OD BID [facility] Last Admin: 03/18/17 09:14 Dose: 1 drop - Labs Labs: 03/16/17 07:03 03/16/17 07:03 PT 25.1 SECONDS (9.7-12.2) H 03/14/17 10:56 INR 2.1 03/14/17 10:56 APTT 39 SECONDS (21-34) H 03/14/17 10:56 - Constitutional Appears: Non-toxic, Chronically Ill - Head Exam Head Exam: NORMOCEPHALIC - Eye Exam Eye Exam: Conjunctival injection, Periorbital swelling, PERRL. absent: Normal appearance, Scleral icterus - ENT Exam ENT Exam: Mucous Membranes Dry - Neck Exam Neck Exam: absent: Lymphadenopathy - Respiratory Exam Respiratory Exam: Decreased Breath Sounds - Cardiovascular Exam Cardiovascular Exam: REGULAR RHYTHM - GI/Abdominal Exam GI & Abdominal Exam: Distended, Soft Assessment and Plan (1) Myelodysplasia (myelodysplastic syndrome) Status: Acute (2) Severe anemia Status: Acute (3) Acute on chronic diastolic (congestive) heart failure Status: Acute (4) Anemia Status: Acute (5) Degenerative disc disease at L5-S1 level Status: Acute (6) Dehydration Status: Acute (7) Diabetes mellitus type 2 in obese Status: Acute (8) Carbapenem-resistant bacterial infection Status: Acute (9) Carbapenem-resistant bacterial infection Status: Acute
--- NOTE | 2017-03-18 15:33 | CP.PCM.PN ---
Subjective - Date & Time of Evaluation Date of Evaluation: 03/18/17 Time of Evaluation: 15:25 - Subjective Subjective: Patient seen and examined. 76-year-old female with a history of hypertension, diastolic dysfunction, hyperlipidemia, diabetes and myelodysplasia was admitted with shortness of breath, generalized weakness and shoulder pain. Patient being treated for Klebsiella pneumonia bacteremia and neurology workup for myasthenia gravis and meningioma. Patient lying comfortably in bed in no acute distress. Chest x-ray performed yesterday showed congestive changes and perihilar infiltrate. Patient with elevated white count and no bands. Denies cough, denies fever or chills. Objective - Vital Signs/Intake and Output Vital Signs (last 24 hours): Temp Pulse Resp BP Pulse Ox 97.3 F L 72 20 130/83 99 03/18/17 08:04 03/18/17 08:04 03/18/17 08:04 03/18/17 09:12 03/18/17 08:04 - Medications Medications: Current Medications Acetaminophen/Codeine Phosphate (Tylenol/Codeine 300 Mg/30 Mg) 1 ea PO Q4 PRN PRN Reason: Pain, moderate (4-7) Last Admin: 03/18/17 09:12 Dose: 1 ea Calcium/Vitamin D (Oscal-D 250 Mg-125 Units Tab) 1 tab PO DAILY [facility] Last Admin: 03/18/17 09:11 Dose: 1 tab Dextrose (Dextrose 50% Inj) 0 ml IVP .STAT PRN; Protocol PRN Reason: Hypoglycemia Protocol Last Admin: 03/14/17 06:59 Dose: 50 ml Famotidine (Pepcid) 20 mg IVP DAILY [facility] Last Admin: 03/18/17 09:11 Dose: 20 mg Ferrous Sulfate (Feosol) 325 mg PO DAILY [facility] Last Admin: 03/18/17 09:12 Dose: 325 mg Folic Acid (Folic Acid) 1 mg PO DAILY [facility] Last Admin: 03/18/17 09:13 Dose: 1 mg Furosemide (Lasix) 40 mg PO DAILY [facility] Last Admin: 03/18/17 09:12 Dose: 40 mg Metronidazole (Flagyl) 500 mg in 100 mls @ 100 mls/hr IVPB Q8H [facility] Last Admin: 03/18/17 09:15 Dose: 100 mls/hr Tigecycline 50 mg/ Dextrose 50 mls @ 100 mls/hr IVPB Q12H [facility] Last Admin: 03/18/17 12:17 Dose: 100 mls/hr Insulin Glargine (Lantus) 8 unit SC HS [facility] Last Admin: 03/17/17 21:26 Dose: Not Given Insulin Human Regular (Novolin R) 0 unit SC ACHS [facility]OSIE PRN Reason: Protocol Last Admin: 03/18/17 12:20 Dose: Not Given Lactic Acid (Lac-Hydrin 12% Lotion (225 G)) 0 gm EXT BID [facility] Last Admin: 03/18/17 09:13 Dose: 1 applic Loperamide HCl (Imodium) 2 mg PO Q4H PRN PRN Reason: Diarrhea Last Admin: 03/18/17 09:11 Dose: 2 mg Lorazepam (Ativan) 0.5 mg PO HS PRN PRN Reason: Anxiety Last Admin: 03/18/17 04:34 Dose: 0.5 mg Magnesium Oxide (Mag-Ox) 400 mg PO DAILY [facility] Last Admin: 03/18/17 09:13 Dose: 400 mg Multivitamins (Hexavitamin) 1 tab PO DAILY [facility] Last Admin: 03/18/17 09:13 Dose: 1 tab Ofloxacin (Ocuflox Ophth 0.3%) 0 ml OD QID [facility] Last Admin: 03/18/17 13:45 Dose: 1 drop Potassium Chloride (Potassium Chloride Oral Soln) 20 meq PO BID [facility] Last Admin: 03/18/17 09:11 Dose: 20 meq Prednisolone Acetate (Pred Forte 1% Opht Susp) 0 ml OD QID [facility] Last Admin: 03/18/17 13:44 Dose: 1 drop Pyridostigmine [place] (Mestinon Tab) 60 mg PO TID [facility] Last Admin: 03/18/17 13:44 Dose: 60 mg Timolol Maleate (Timoptic 0.5% Ophth Soln) 1 drop OD BID [facility] Last Admin: 03/18/17 09:14 Dose: 1 drop - Labs Labs: 03/16/17 07:03 03/16/17 07:03 PT 25.1 SECONDS (9.7-12.2) H 03/14/17 10:56 INR 2.1 03/14/17 10:56 APTT 39 SECONDS (21-34) H 03/14/17 10:56 - Constitutional Appears: No Acute Distress - Head Exam Head Exam: ATRAUMATIC - ENT Exam ENT Exam: Mucous Membranes Moist - Neck Exam Neck Exam: Normal Inspection - Respiratory Exam Respiratory Exam: NORMAL BREATHING PATTERN - Cardiovascular Exam Cardiovascular Exam: REGULAR RHYTHM - GI/Abdominal Exam GI & Abdominal Exam: Soft, Normal Bowel Sounds - Extremities Exam Extremities Exam: Pedal Edema - Neurological Exam Neurological Exam: Awake Assessment and Plan (1) Pneumonia Status: Acute (2) Carbapenem-resistant bacterial infection Status: Acute (3) Myelodysplasia (myelodysplastic syndrome) Status: Acute (4) Anemia Status: Acute
[2017-03-18 15:46] LABS: ABG ALLEN TEST POS; CARBOXYHEMOGLOBIN 2.2 % (0.5-1.5); DRAW SITE RR; HHB 8.6 % (0.0-5.0); METHEMOGLOBIN 2.2 % (0.0-3.0)
[2017-03-18 17:26] LABS: ABG ALLEN TEST POS; ARTERIAL BLOOD HGB O2 SAT 95.6 % (95.0-98.0); CARBOXYHEMOGLOBIN 2.2 % (0.5-1.5); DRAW SITE RR; METHEMOGLOBIN 2.3 % (0.0-3.0)
--- NOTE | 2017-03-18 20:29 | CP.PCM.CON ---
History of Present Illness - History of Present Illness History of Present Illness: Vascular Surgery Consult Note for Dr. Bateman Reason for consult: Eve Catheter insertion 76F with pmh of MDS, meningioma, MG, DM, HTN, PVD, CHF, COPD, and depression presented admitted for Bactermia. Surgery was previous consulted for port removal which was presumed source. Patient has had prolonged hospital course including new diagnoses of myasthenia gravis and meningioma. Surgery now being consulted to place eve catheter for plasmaphoresis. Patient is poor historian. Daughter was bedside during interview/examine. Patient currenlty only complaining of R eye pain and irritation. PMH: CHF, PVD, HTN, DM, MDS, OA, COPD, depression, meningioma, Myasthenia gravis Meds: As per EMR ALL: gadolinium PSH: cholecystectomy, tonsillectomy, R subclavian portacath Fh: unknown Social: denies ETOH/Tobacco/Drugs Review of Systems - Constitutional Constitutional: As Per HPI - EENT Eyes: As Per HPI Ears: As Per HPI Nose/Mouth/Throat: As Per HPI - Breasts Breasts: As Per HPI - Cardiovascular Cardiovascular: As Per HPI - Respiratory Respiratory: As Per HPI - Gastrointestinal Gastrointestinal: As Per HPI - Genitourinary Genitourinary: As Per HPI - Reproductive: Female Reproductive:Female: As Per HPI - Musculoskeletal Musculoskeletal: As Per HPI - Integumentary Integumentary: As Per HPI - Neurological Neurological: As Per HPI - Psychiatric Psychiatric: As Per HPI - Endocrine Endocrine: As Per HPI - Hematologic/Lymphatic Hematologic: As Per HPI Past Patient History - Infectious Disease Hx of Infectious Diseases: None - Tetanus Immunizations Tetanus Immunization: Unknown, Up to Date - Past Medical History & Family History Past Medical History?: Yes - Past Social History Smoking Status: Never Smoked Chewing Tobacco Use: No Cigar Use: No Alcohol: None Drugs: Denies Home Situation {Lives}: With Family - CARDIAC Hx Congestive Heart Failure: Yes Hx Hypertension: Yes - PULMONARY Hx Chronic Obstructive Pulmonary Disease (COPD): Yes (EMPHYSEMA) - NEUROLOGICAL Hx Neurological Disorder: No Hx Vertigo: Yes - HEENT Hx HEENT Problems: No - RENAL Hx Chronic Kidney Disease: No - ENDOCRINE/METABOLIC Hx Diabetes Mellitus Type 2: Yes - HEMATOLOGICAL/ONCOLOGICAL Hx Anemia: Yes Hx Blood Transfusions: Yes - INTEGUMENTARY Hx Dermatological Problems: No Other/Comment: BLE w/ cauliflowered skin - MUSCULOSKELETAL/RHEUMATOLOGICAL Hx Arthritis: Yes (NECK, L SH; B/L KNEES) - GASTROINTESTINAL Hx Gastritis: Yes - GENITOURINARY/GYNECOLOGICAL Hx Genitourinary Disorders: No Para: 2 - PSYCHIATRIC Hx Physical Abuse: No Hx Schizophrenia: No Hx Sexual Abuse: No Hx Substance Use: No - SURGICAL HISTORY Hx Cholecystectomy: Yes (in 2010) Hx Tonsillectomy: Yes (8yrs old) - ANESTHESIA Hx Anesthesia: Yes Hx Anesthesia Reactions: No Hx Malignant Hyperthermia: No Meds Allergies/Adverse Reactions: Allergies Allergy/AdvReac Type Severity Reaction Status Date / Time Gadolinium-Containing Allergy ITCHING Verified 12/13/16 15:45 Contrast Medi - Medications Medications: Current Medications Acetaminophen/Codeine Phosphate (Tylenol/Codeine 300 Mg/30 Mg) 1 ea PO Q4 PRN PRN Reason: Pain, moderate (4-7) Last Admin: 03/18/17 09:12 Dose: 1 ea Calcium/Vitamin D (Oscal-D 250 Mg-125 Units Tab) 1 tab PO DAILY [facility] Last Admin: 03/18/17 09:11 Dose: 1 tab Dextrose (Dextrose 50% Inj) 0 ml IVP .STAT PRN; Protocol PRN Reason: Hypoglycemia Protocol Last Admin: 03/14/17 06:59 Dose: 50 ml Famotidine (Pepcid) 20 mg IVP DAILY [facility] Last Admin: 03/18/17 09:11 Dose: 20 mg Ferrous Sulfate (Feosol) 325 mg PO DAILY [facility] Last Admin: 03/18/17 09:12 Dose: 325 mg Folic Acid (Folic Acid) 1 mg PO DAILY [facility] Last Admin: 03/18/17 09:13 Dose: 1 mg Furosemide (Lasix) 40 mg PO DAILY [facility] Last Admin: 03/18/17 09:12 Dose: 40 mg Metronidazole (Flagyl) 500 mg in 100 mls @ 100 mls/hr IVPB Q8H [facility] Last Admin: 03/18/17 18:06 Dose: 100 mls/hr Tigecycline 50 mg/ Dextrose 50 mls @ 100 mls/hr IVPB Q12H [facility] Last Admin: 03/18/17 12:17 Dose: 100 mls/hr Insulin Glargine (Lantus) 8 unit SC HS [facility] Last Admin: 03/17/17 21:26 Dose: Not Given Insulin Human Regular (Novolin R) 0 unit SC ACHS JOSIE PRN Reason: Protocol Last Admin: 03/18/17 17:01 Dose: Not Given Lactic Acid (Lac-Hydrin 12% Lotion (225 G)) 0 gm EXT BID [facility] Last Admin: 03/18/17 18:50 Dose: 1 applic Loperamide HCl (Imodium) 2 mg PO Q4H PRN PRN Reason: Diarrhea Last Admin: 03/18/17 09:11 Dose: 2 mg Lorazepam (Ativan) 0.5 mg PO HS PRN PRN Reason: Anxiety Last Admin: 03/18/17 04:34 Dose: 0.5 mg Magnesium Oxide (Mag-Ox) 400 mg PO DAILY [facility] Last Admin: 03/18/17 09:13 Dose: 400 mg Multivitamins (Hexavitamin) 1 tab PO DAILY [facility] Last Admin: 03/18/17 09:13 Dose: 1 tab Ofloxacin (Ocuflox Ophth 0.3%) 0 ml OD QID [facility] Last Admin: 03/18/17 18:07 Dose: 1 drop Potassium Chloride (Potassium Chloride Oral Soln) 20 meq PO BID [facility] Last Admin: 03/18/17 18:07 Dose: 20 meq Prednisolone Acetate (Pred Forte 1% Opht Susp) 0 ml OD QID [facility] Last Admin: 03/18/17 18:07 Dose: 1 drop Pyridostigmine [place] (Mestinon Tab) 60 mg PO TID [facility] Last Admin: 03/18/17 18:06 Dose: 60 mg Timolol Maleate (Timoptic 0.5% Ophth Soln) 1 drop OD BID [facility] Last Admin: 03/18/17 18:07 Dose: 1 drop Physical Exam - Constitutional Appears: No Acute Distress - Head Exam Head Exam: ATRAUMATIC, NORMOCEPHALIC - Eye Exam Additional comments: enlarging mass in right eye ptosis - ENT Exam ENT Exam: Mucous Membranes Moist - Respiratory Exam Respiratory Exam: NORMAL BREATHING PATTERN - Cardiovascular Exam Cardiovascular Exam: REGULAR RHYTHM - GI/Abdominal Exam GI & Abdominal Exam: Soft - Extremities Exam Extremities exam: Negative for: calf tenderness - Back Exam Back exam: absent: CVA tenderness (L), CVA tenderness (R) - Neurological Exam Neurological exam: Alert - Psychiatric Exam Psychiatric exam: Flat Affect - Skin Skin Exam: Dry, Warm Results - Vital Signs Recent Vital Signs: Last Vital Signs Temp 97.2 F L 03/18/17 17:03 Pulse 63 03/18/17 17:03 Resp 20 03/18/17 17:03 BP 120/62 03/18/17 17:03 Pulse Ox 99 03/18/17 17:03 - Labs Result Diagrams: 03/16/17 07:03 03/16/17 07:03 Labs: Laboratory Results - last 24 hr 03/12/17 03/17/17 03/18/17 07:57 20:59 06:47 Puncture Site pCO2 pO2 HCO3 ABG pH ABG Total CO2 ABG O2 Saturation ABG Base Excess ABG Hemoglobin ABG Carboxyhemoglobin POC ABG HHb (Measured) ABG Methemoglobin Inderjit Test A-a O2 Difference Respiratory Index Hgb O2 Saturation Liter Flow FiO2 POC Glucose (mg/dL) 123 H 138 H Acetylchol Rcpt Bind Ab 0.41 H 03/18/17 03/18/17 03/18/17 11:46 15:43 16:33 Puncture Site Rr pCO2 44 pO2 52 L HCO3 28.1 H ABG pH 7.43 ABG Total CO2 30.6 H ABG O2 Saturation 91.0 L ABG Base Excess 4.3 H ABG Hemoglobin 10.6 L ABG Carboxyhemoglobin 2.2 H POC ABG HHb (Measured) 8.6 H ABG Methemoglobin 2.2 Inderjit Test Pos A-a O2 Difference 121.0 Respiratory Index 2.3 Hgb O2 Saturation 87.0 L Liter Flow 3.0 FiO2 32.0 POC Glucose (mg/dL) 146 H 151 H Acetylchol Rcpt Bind Ab 03/18/17 17:23 Puncture Site Rr pCO2 45 pO2 152 H HCO3 29.4 H ABG pH 7.44 ABG Total CO2 32.0 H ABG O2 Saturation 100.0 H ABG Base Excess 5.7 H ABG Hemoglobin 10.4 L ABG Carboxyhemoglobin 2.2 H POC ABG HHb (Measured) 0.0 ABG Methemoglobin 2.3 Inderjit Test Pos A-a O2 Difference 20.0 Respiratory Index 0.1 Hgb O2 Saturation 95.6 Liter Flow 3.0 FiO2 32.0 POC Glucose (mg/dL) Acetylchol Rcpt Bind Ab Assessment & Plan - Assessment and Plan (Free Text) Plan: 76 F with MDS, bacteremia, meningioma, Myasthenia gravis and thrombocytopenia needing plasmapheresis -Tentatively plan for eve catheter placement Sunday in [place] -NPO Past [place] -Monitor Platelet, currently 51K - may need transfusion -Management as per primary -Discussed with Dr. Bateman
[2017-03-18] MEDS: (Lantus) Insulin Glargine, Recombinant SC SCH (21:23)
--- NOTE | 2017-03-18 21:40 | CP.PCM.PN ---
Subjective - Date & Time of Evaluation Date of Evaluation: 03/18/17 Time of Evaluation: 17:25 - Subjective Subjective: Patient somewhat letargic today. Persistant right eye discomfort. Nurse noted patient is not eating. Request for Ensre made. Continue antibiotic therapy. Objective - Vital Signs/Intake and Output Vital Signs (last 24 hours): Temp Pulse Resp BP Pulse Ox 97.2 F L 63 20 120/62 99 03/18/17 17:03 03/18/17 17:03 03/18/17 17:03 03/18/17 17:03 03/18/17 17:03 - Medications Medications: Current Medications Acetaminophen/Codeine Phosphate (Tylenol/Codeine 300 Mg/30 Mg) 1 ea PO Q4 PRN PRN Reason: Pain, moderate (4-7) Last Admin: 03/18/17 09:12 Dose: 1 ea Calcium/Vitamin D (Oscal-D 250 Mg-125 Units Tab) 1 tab PO DAILY [facility] Last Admin: 03/18/17 09:11 Dose: 1 tab Dextrose (Dextrose 50% Inj) 0 ml IVP .STAT PRN; Protocol PRN Reason: Hypoglycemia Protocol Last Admin: 03/14/17 06:59 Dose: 50 ml Famotidine (Pepcid) 20 mg IVP DAILY [facility] Last Admin: 03/18/17 09:11 Dose: 20 mg Ferrous Sulfate (Feosol) 325 mg PO DAILY [facility] Last Admin: 03/18/17 09:12 Dose: 325 mg Folic Acid (Folic Acid) 1 mg PO DAILY [facility] Last Admin: 03/18/17 09:13 Dose: 1 mg Furosemide (Lasix) 40 mg PO DAILY [facility] Last Admin: 03/18/17 09:12 Dose: 40 mg Metronidazole (Flagyl) 500 mg in 100 mls @ 100 mls/hr IVPB Q8H [facility] Last Admin: 03/18/17 18:06 Dose: 100 mls/hr Tigecycline 50 mg/ Dextrose 50 mls @ 100 mls/hr IVPB Q12H [facility] Last Admin: 03/18/17 12:17 Dose: 100 mls/hr Insulin Glargine (Lantus) 8 unit SC HS [facility] Last Admin: 03/18/17 21:23 Dose: Not Given Insulin Human Regular (Novolin R) 0 unit SC ACHS JOSIE PRN Reason: Protocol Last Admin: 03/18/17 17:01 Dose: Not Given Lactic Acid (Lac-Hydrin 12% Lotion (225 G)) 0 gm EXT BID [facility] Last Admin: 03/18/17 18:50 Dose: 1 applic Loperamide HCl (Imodium) 2 mg PO Q4H PRN PRN Reason: Diarrhea Last Admin: 03/18/17 09:11 Dose: 2 mg Lorazepam (Ativan) 0.5 mg PO HS PRN PRN Reason: Anxiety Last Admin: 03/18/17 04:34 Dose: 0.5 mg Magnesium Oxide (Mag-Ox) 400 mg PO DAILY [facility] Last Admin: 03/18/17 09:13 Dose: 400 mg Multivitamins (Hexavitamin) 1 tab PO DAILY [facility] Last Admin: 03/18/17 09:13 Dose: 1 tab Ofloxacin (Ocuflox Ophth 0.3%) 0 ml OD QID [facility] Last Admin: 03/18/17 18:07 Dose: 1 drop Potassium Chloride (Potassium Chloride Oral Soln) 20 meq PO BID [facility] Last Admin: 03/18/17 18:07 Dose: 20 meq Prednisolone Acetate (Pred Forte 1% Opht Susp) 0 ml OD QID [facility] Last Admin: 03/18/17 18:07 Dose: 1 drop Pyridostigmine [place] (Mestinon Tab) 60 mg PO TID [facility] Last Admin: 03/18/17 18:06 Dose: 60 mg Timolol Maleate (Timoptic 0.5% Ophth Soln) 1 drop OD BID [facility] Last Admin: 03/18/17 18:07 Dose: 1 drop - Labs Labs: 03/16/17 07:03 03/16/17 07:03 PT 25.1 SECONDS (9.7-12.2) H 03/14/17 10:56 INR 2.1 03/14/17 10:56 APTT 39 SECONDS (21-34) H 03/14/17 10:56 - Constitutional Appears: Chronically Ill - Head Exam Head Exam: NORMOCEPHALIC - ENT Exam ENT Exam: Normal Exam - Neck Exam Neck Exam: Normal Inspection - Respiratory Exam Respiratory Exam: Decreased Breath Sounds - Cardiovascular Exam Cardiovascular Exam: REGULAR RHYTHM - GI/Abdominal Exam GI & Abdominal Exam: Hyperactive Bowel Sounds - Rectal Exam Rectal Exam: Deferred - Exam External exam: NORMAL EXTERNAL EXAM - Extremities Exam Extremities Exam: Tenderness - Back Exam Back Exam: muscle spasm - Neurological Exam Neurological Exam: Altered - Psychiatric Exam Psychiatric exam: Depressed Assessment and Plan (1) Myelodysplasia (myelodysplastic syndrome) Status: Acute (2) Severe anemia Status: Acute (3) Degenerative disc disease at L5-S1 level Status: Acute (4) Osteoarthritis Status: Acute (5) Thrombocytopenia Status: Acute (6) Sepsis Status: Acute
[2017-03-19] MEDS: TIGECYCLINE IVPB SCH ×2 (00:01→11:20)
[2017-03-19] MEDS: WATER IVPB SCH ×2 (00:01→11:20)
[2017-03-19] MEDS: DEXTROSE 5% IVPB SCH ×2 (00:01→11:20)
[2017-03-19] MEDS: metroNIDAZOLE IV 500 mg/100 ml 500 MG/100 ML BAG IVPB SCH ×3 (01:35→21:27)
[2017-03-19 07:19] LABS: BASO # 0.1 K/uL (0.0-0.2); MEAN CORPUSCULAR HEMOGLOBIN 30.5 pg (27.0-31.0); MONO % 25.6 % (0.0-10.0)
[2017-03-19 07:28] LABS: BASO % 0.4 % (0.0-2.0); HEMATOCRIT 33.1 % (34.0-47.0); LYMPH # 2.8 K/uL (1.0-4.3); LYMPH % 13.5 % (20.0-40.0); MEAN CELL VOLUME 92.9 fL (81.0-99.0); MEAN CORPUSCULAR HGB CONC 32.8 g/dL (33.0-37.0); MEAN PLATELET VOLUME 6.6 fL (7.2-11.7); MONO # 5.3 K/uL (0.0-0.8); NRBC % 0.6 % (0.0-2.0); RED CELL DISTRIBUTION WIDTH 19.2 % (11.5-14.5); WHITE BLOOD COUNT 20.5 K/uL (4.8-10.8)
[2017-03-19 07:32] LABS: ALB/GLOB RATIO 0.5 (1.0-2.1); ALKALINE PHOSPHATASE 488 U/L (38-126); ALT/SGPT 37 U/L (9-52); AST/SGOT 17 U/L (14-36); BILIRUBIN,TOTAL 1.4 mg/dL (0.2-1.3); BLOOD UREA NITROGEN 16 mg/dL (7-17); CALCIUM 7.9 mg/dl (8.6-10.4); CARBON DIOXIDE 27 mmol/L (22-30); CHLORIDE 109 mmol/L (98-107); GFR AFRICAN-AMERICAN > 60; GLUCOSE,RANDOM 90 mg/dL (65-105); PLATELET COUNT 24 K/uL (130-400); POTASSIUM 2.6 mmol/L (3.6-5.2); SODIUM 144 mmol/L (132-148); TOTAL PROTEIN 6.4 g/dL (6.3-8.3)
[2017-03-19] MEDS: (Novolin R) Insulin Human Regular 100 units/ml vial SC SCH ×4 (08:26→21:27)
[2017-03-19 08:35] LABS: NEUTROPHIL 65 % (50-75); TOTAL CELLS COUNTED 100
[2017-03-19] MEDS: Potassium Chloride 20 mEq/15 ml LIQ UD PO SCH ×2 (10:26→17:37)
[2017-03-19] MEDS: Magnesium Oxide 400 mg Tab UD PO SCH (10:28)
[2017-03-19] MEDS: Calcium-Vit D 250 mg-125 Units Tab UD PO SCH (10:28)
[2017-03-19] MEDS: Ofloxacin 0.3% Ophth Soln OD SCH ×4 (11:00→21:27)
[2017-03-19] MEDS: Ammonium Lactate 12% Lotion (225 g) EXT SCH ×2 (11:00→17:39)
[2017-03-19] MEDS: PrednisoLONE 1% Opht Susp(5 ml) OD SCH ×4 (11:21→21:28)
[2017-03-19] MEDS: Multiple Vitamins Tab PO SCH (11:27)
--- NOTE | 2017-03-19 12:46 | CP.PCM.CON ---
History of Present Illness - History of Present Illness History of Present Illness: Patient seen and examined. 76-year-old female with a history of hypertension, diastolic dysfunction, hyperlipidemia, diabetes and myelodysplasia was admitted with shortness of breath, generalized weakness and shoulder pain. Patient being treated for Klebsiella pneumonia bacteremia and neurology workup for myasthenia gravis and meningioma. Patient lying comfortably in bed in no acute distress. Chest x-ray performed yesterday showed congestive changes and perihilar infiltrate. Patient with elevated white count and no bands. Denies cough, denies fever or chills. Dx MDS, meningioma, HTN, DL, DM 2, new right eye ptosis Neuro dx myasthenia gravia- plasma exchange needed Review of Systems - Review of Systems Systems not reviewed;Unavailable: Acuity of Condition Past Patient History - Infectious Disease Hx of Infectious Diseases: None - Tetanus Immunizations Tetanus Immunization: Unknown, Up to Date - Past Medical History & Family History Past Medical History?: Yes Past Family History: Reviewed and not pertinent - Past Social History Smoking Status: Never Smoked Chewing Tobacco Use: No Cigar Use: No Alcohol: None Drugs: Denies Home Situation {Lives}: With Family - CARDIAC Hx Congestive Heart Failure: Yes Hx Hypertension: Yes - PULMONARY Hx Chronic Obstructive Pulmonary Disease (COPD): Yes (EMPHYSEMA) - NEUROLOGICAL Hx Neurological Disorder: No Hx Vertigo: Yes - HEENT Hx HEENT Problems: No - RENAL Hx Chronic Kidney Disease: No - ENDOCRINE/METABOLIC Hx Diabetes Mellitus Type 2: Yes - HEMATOLOGICAL/ONCOLOGICAL Hx Anemia: Yes Hx Blood Transfusions: Yes - INTEGUMENTARY Hx Dermatological Problems: No Other/Comment: BLE w/ cauliflowered skin - MUSCULOSKELETAL/RHEUMATOLOGICAL Hx Arthritis: Yes (NECK, L SH; B/L KNEES) - GASTROINTESTINAL Hx Gastritis: Yes - GENITOURINARY/GYNECOLOGICAL Hx Genitourinary Disorders: No Para: 2 - PSYCHIATRIC Hx Physical Abuse: No Hx Schizophrenia: No Hx Sexual Abuse: No Hx Substance Use: No - SURGICAL HISTORY Hx Cholecystectomy: Yes (in 2010) Hx Tonsillectomy: Yes (8yrs old) - ANESTHESIA Hx Anesthesia: Yes Hx Anesthesia Reactions: No Hx Malignant Hyperthermia: No Meds Allergies/Adverse Reactions: Allergies Allergy/AdvReac Type Severity Reaction Status Date / Time Gadolinium-Containing Allergy ITCHING Verified 12/13/16 15:45 Contrast Medi - Medications Medications: Current Medications Calcium/Vitamin D (Oscal-D 250 Mg-125 Units Tab) 1 tab PO DAILY [facility] Last Admin: 03/19/17 10:28 Dose: 1 tab Dextrose (Dextrose 50% Inj) 0 ml IVP .STAT PRN; Protocol PRN Reason: Hypoglycemia Protocol Last Admin: 03/14/17 06:59 Dose: 50 ml Famotidine (Pepcid) 20 mg PO DAILY [facility] Last Admin: 03/19/17 10:29 Dose: 20 mg Ferrous Sulfate (Feosol) 325 mg PO DAILY [facility] Last Admin: 03/19/17 10:27 Dose: 325 mg Folic Acid (Folic Acid) 1 mg PO DAILY [facility] Last Admin: 03/19/17 10:27 Dose: 1 mg Furosemide (Lasix) 40 mg PO DAILY [facility] Last Admin: 03/19/17 11:34 Dose: 40 mg Metronidazole (Flagyl) 500 mg in 100 mls @ 100 mls/hr IVPB Q8H [facility] Last Admin: 03/19/17 11:00 Dose: 100 mls/hr Tigecycline 50 mg/ Dextrose 50 mls @ 100 mls/hr IVPB Q12H [facility] Last Admin: 03/19/17 11:20 Dose: 100 mls/hr Insulin Glargine (Lantus) 8 unit SC HS [facility] Last Admin: 03/18/17 21:23 Dose: Not Given Insulin Human Regular (Novolin R) 0 unit SC ACHS JOSIE PRN Reason: Protocol Last Admin: 03/19/17 12:02 Dose: Not Given Lactic Acid (Lac-Hydrin 12% Lotion (225 G)) 0 gm EXT BID [facility] Last Admin: 03/19/17 11:00 Dose: 1 applic Loperamide HCl (Imodium) 2 mg PO Q4H PRN PRN Reason: Diarrhea Last Admin: 03/18/17 09:11 Dose: 2 mg Lorazepam (Ativan) 0.5 mg PO HS PRN PRN Reason: Anxiety Last Admin: 03/18/17 04:34 Dose: 0.5 mg Magnesium Oxide (Mag-Ox) 400 mg PO DAILY [facility] Last Admin: 03/19/17 10:28 Dose: 400 mg Multivitamins (Hexavitamin) 1 tab PO DAILY [facility] Last Admin: 03/19/17 11:27 Dose: 1 tab Ofloxacin (Ocuflox Ophth 0.3%) 0 ml OD QID [facility] Last Admin: 11/20/17 11:00 Dose: 1 drop Potassium Chloride (Potassium Chloride Oral Soln) 20 meq PO BID [facility] Last Admin: 03/19/17 10:26 Dose: 20 meq Prednisolone Acetate (Pred Forte 1% Opht Susp) 0 ml OD QID [facility] Last Admin: 03/19/17 11:21 Dose: 1 drop Pyridostigmine [place] (Mestinon Tab) 60 mg PO TID [facility] Last Admin: 03/19/17 10:29 Dose: 60 mg Timolol Maleate (Timoptic 0.5% Ophth Soln) 1 drop OD BID [facility] Last Admin: 03/19/17 11:00 Dose: 1 drop Physical Exam - Constitutional Appears: Confused, Chronically Ill - Head Exam Head Exam: ATRAUMATIC, NORMAL INSPECTION - Eye Exam Eye Exam: Periorbital swelling, Periorbital tenderness Additional comments: right eye ptosis - Neck Exam Neck exam: Positive for: Normal Inspection. Negative for: Tenderness - Respiratory Exam Respiratory Exam: Clear to Auscultation Bilateral, NORMAL BREATHING PATTERN - Cardiovascular Exam Cardiovascular Exam: REGULAR RHYTHM, +S1 - GI/Abdominal Exam GI & Abdominal Exam: Soft. absent: Distended - Extremities Exam Extremities exam: Positive for: pedal edema, tenderness - Neurological Exam Neurological exam: Altered, Motor Sensory Deficit - Skin Skin Exam: Rash, Vesicles Results - Vital Signs Recent Vital Signs: Last Vital Signs Temp 97.3 F L 03/19/17 07:00 Pulse 82 03/19/17 07:00 Resp 20 03/19/17 07:00 BP 117/73 03/19/17 11:34 Pulse Ox 96 03/19/17 07:00 - Labs Result Diagrams: 03/19/17 06:43 03/19/17 06:43 Labs: Laboratory Results - last 24 hr 03/12/17 03/18/17 03/18/17 07:57 15:43 16:33 WBC RBC Hgb Hct MCV MCH MCHC RDW Plt Count MPV Neut % (Auto) Lymph % (Auto) Bates % (Auto) Eos % (Auto) Baso % (Auto) Neut # Lymph # Bates # Eos # Baso # Neutrophils % (Manual) Lymphocytes % (Manual) Monocytes % (Manual) Platelet Estimate Hypochromasia (manual) Poikilocytosis (manual Anisocytosis (manual) Puncture Site Rr pCO2 44 pO2 52 L HCO3 28.1 H ABG pH 7.43 ABG Total CO2 30.6 H ABG O2 Saturation 91.0 L ABG Base Excess 4.3 H ABG Hemoglobin 10.6 L ABG Carboxyhemoglobin 2.2 H POC ABG HHb (Measured) 8.6 H ABG Methemoglobin 2.2 Inderjit Test Pos A-a O2 Difference 121.0 Respiratory Index 2.3 Hgb O2 Saturation 87.0 L Liter Flow 3.0 FiO2 32.0 Sodium Potassium Chloride Carbon Dioxide Anion Gap BUN Creatinine Est GFR ( Amer) Est GFR (Non-Af Amer) POC Glucose (mg/dL) 151 H Random Glucose Calcium Total Bilirubin AST ALT Alkaline Phosphatase Total Protein Albumin Globulin Albumin/Globulin Ratio Acetylchol Rcpt Bind Ab 0.41 H Blood Type Antibody Screen 03/18/17 03/18/17 03/19/17 17:23 21:12 06:43 WBC 20.5 H RBC 3.56 L Hgb 10.9 L Hct 33.1 L MCV 92.9 MCH 30.5 MCHC 32.8 L RDW 19.2 H Plt Count 24 L* D MPV 6.6 L Neut % (Auto) 60.5 Lymph % (Auto) 13.5 L Bates % (Auto) 25.6 H Eos % (Auto) 0.0 Baso % (Auto) 0.4 Neut # 12.4 H Lymph # 2.8 Bates # 5.3 H Eos # 0.0 Baso # 0.1 Neutrophils % (Manual) 65 Lymphocytes % (Manual) 10 L Monocytes % (Manual) 25 H Platelet Estimate Decreased L Hypochromasia (manual) Slight Poikilocytosis (manual Slight Anisocytosis (manual) Slight Puncture Site Rr pCO2 45 pO2 152 H HCO3 29.4 H ABG pH 7.44 ABG Total CO2 32.0 H ABG O2 Saturation 100.0 H ABG Base Excess 5.7 H ABG Hemoglobin 10.4 L ABG Carboxyhemoglobin 2.2 H POC ABG HHb (Measured) 0.0 ABG Methemoglobin 2.3 Inderjit Test Pos A-a O2 Difference 20.0 Respiratory Index 0.1 Hgb O2 Saturation 95.6 Liter Flow 3.0 FiO2 32.0 Sodium Potassium Chloride Carbon Dioxide Anion Gap BUN Creatinine Est GFR ( Amer) Est GFR (Non-Af Amer) POC Glucose (mg/dL) 142 H Random Glucose Calcium Total Bilirubin AST ALT Alkaline Phosphatase Total Protein Albumin Globulin Albumin/Globulin Ratio Acetylchol Rcpt Bind Ab Blood Type Antibody Screen 03/19/17 03/19/17 03/19/17 06:43 06:43 06:54 WBC RBC Hgb Hct MCV MCH MCHC RDW Plt Count MPV Neut % (Auto) Lymph % (Auto) Bates % (Auto) Eos % (Auto) Baso % (Auto) Neut # Lymph # Bates # Eos # Baso # Neutrophils % (Manual) Lymphocytes % (Manual) Monocytes % (Manual) Platelet Estimate Hypochromasia (manual) Poikilocytosis (manual Anisocytosis (manual) Puncture Site pCO2 pO2 HCO3 ABG pH ABG Total CO2 ABG O2 Saturation ABG Base Excess ABG Hemoglobin ABG Carboxyhemoglobin POC ABG HHb (Measured) ABG Methemoglobin Inderjit Test A-a O2 Difference Respiratory Index Hgb O2 Saturation Liter Flow FiO2 Sodium 144 Potassium 2.6 L Chloride 109 H Carbon Dioxide 27 Anion Gap 11 BUN 16 Creatinine 1.0 Est GFR ( Amer) > 60 Est GFR (Non-Af Amer) 54 POC Glucose (mg/dL) 111 H Random Glucose 90 Calcium 7.9 L Total Bilirubin 1.4 H AST 17 ALT 37 Alkaline Phosphatase 488 H D Total Protein 6.4 Albumin 2.1 L Globulin 4.3 H Albumin/Globulin Ratio 0.5 L Acetylchol Rcpt Bind Ab Blood Type O NEGATIVE Antibody Screen Negative 03/19/17 11:13 WBC RBC Hgb Hct MCV MCH MCHC RDW Plt Count MPV Neut % (Auto) Lymph % (Auto) [place] % (Auto) Eos % (Auto) Baso % (Auto) Neut # Lymph # Bates # Eos # Baso # Neutrophils % (Manual) Lymphocytes % (Manual) Monocytes % (Manual) Platelet Estimate Hypochromasia (manual) Poikilocytosis (manual Anisocytosis (manual) Puncture Site pCO2 pO2 HCO3 ABG pH ABG Total CO2 ABG O2 Saturation ABG Base Excess ABG Hemoglobin ABG Carboxyhemoglobin POC ABG HHb (Measured) ABG Methemoglobin Inderjit Test A-a O2 Difference Respiratory Index Hgb O2 Saturation Liter Flow FiO2 Sodium Potassium Chloride Carbon Dioxide Anion Gap BUN Creatinine Est GFR ( Amer) Est GFR (Non-Af Amer) POC Glucose (mg/dL) 137 H Random Glucose Calcium Total Bilirubin AST ALT Alkaline Phosphatase Total Protein Albumin Globulin Albumin/Globulin Ratio Acetylchol Rcpt Bind Ab Blood Type Antibody Screen Assessment & Plan (1) Myasthenia Status: Acute (2) Other secondary thrombocytopenia Status: Acute (3) Meningioma Status: Acute (4) Hypokalemia Status: Acute (5) Carbapenem-resistant bacterial infection Status: Acute (6) Myelodysplasia (myelodysplastic syndrome) Status: Acute - Assessment and Plan (Free Text) Plan: Will replete K Needs portacath Would need consent then can proceed with plasma exchange therapy
[2017-03-19] MEDS ORDERED: HEPARIN-NS 5,000 UNITS/500 ML 0 UNIT/0 ML BAG IV ONE (13:13)
[2017-03-19] MEDS ORDERED: Lidocaine 1% Inj (20ml) ONE (13:13)
--- NOTE | 2017-03-19 16:57 | PN ---
SUBJECTIVE: The patient is alert, oriented, in bed. PHYSICAL EXAMINATION: VITAL SIGNS: She is afebrile. Blood pressure is 116/72, pulse 82, respirations 20, hemoglobin oxygen saturation is 96% on oxygen at 2 L per minute via nasal cannula. GENERAL: Her dyspnea has improved. HEART: Regular. LUNGS: Have diminished breath sounds. Rhonchi decreased. ABDOMEN: Soft. LABORATORY DATA: White count is 20,500, hemoglobin 10.9, and platelet count low at 24,000. Serum sodium is 144, potassium is low at 2.6, chloride 109, BUN 16, creatinine 1. Serum albumin 2.1, alkaline phosphatase of 488. The patient is being followed by renal specialist, Dr. Bedoya; oncologist Dr. Fitzgerald; Infectious Disease specialist, Dr. Prabhakar; and neurologist, Dr. Cota. IMPRESSION: Respiratory insufficiency, chronic obstructive pulmonary disease, myelodysplasia, sepsis, thrombocytopenia, electrolyte imbalance, hypoproteinemia, hypertension, cardiovascular disease. PLAN: To continue current management; correction of electrolyte imbalance, and followup with specialists. Discussed. Abundio Silva MD [facility]
--- NOTE | 2017-03-19 16:59 | CP.PCM.PN ---
Subjective - Date & Time of Evaluation Date of Evaluation: 03/19/17 Time of Evaluation: 16:57 - Subjective Subjective: Surgery: Dr. Fransico Cali catheter cancelled today due to hypokalemia. Plan for catheter placement tomorrow if medically optimized d/w attending Dianna PGY3 Objective - Vital Signs/Intake and Output Vital Signs (last 24 hours): Temp Pulse Resp BP Pulse Ox 97.3 F L 82 20 117/73 96 03/19/17 07:00 03/19/17 07:00 03/19/17 07:00 03/19/17 11:34 03/19/17 07:00 Intake and Output: 03/19/17 03/19/17 06:59 18:59 Intake Total 260 Balance 260 - Medications Medications: Current Medications Acetaminophen/Codeine Phosphate (Tylenol/Codeine 300 Mg/30 Mg) 1 ea PO Q6 PRN PRN Reason: Pain, moderate (4-7) Calcium/Vitamin D (Oscal-D 250 Mg-125 Units Tab) 1 tab PO DAILY [facility] Last Admin: 03/19/17 10:28 Dose: 1 tab Dextrose (Dextrose 50% Inj) 0 ml IVP .STAT PRN; Protocol PRN Reason: Hypoglycemia Protocol Last Admin: 03/14/17 06:59 Dose: 50 ml Famotidine (Pepcid) 20 mg PO DAILY [facility] Last Admin: 03/19/17 10:29 Dose: 20 mg Ferrous Sulfate (Feosol) 325 mg PO DAILY [facility] Last Admin: 03/19/17 10:27 Dose: 325 mg Folic Acid (Folic Acid) 1 mg PO DAILY [facility] Last Admin: 03/19/17 10:27 Dose: 1 mg Furosemide (Lasix) 40 mg PO DAILY [facility] Last Admin: 03/19/17 11:34 Dose: 40 mg Metronidazole (Flagyl) 500 mg in 100 mls @ 100 mls/hr IVPB Q8H [facility] Last Admin: 03/19/17 11:00 Dose: 100 mls/hr Potassium Chloride (Potassium Chloride 20 Meq/100 Ml) 20 meq in 100 mls @ 50 mls/hr IVPB Q2 [facility] Stop: 03/19/17 17:59 Last Admin: 03/19/17 16:22 Dose: 50 mls/hr Tigecycline 50 mg/ Sodium (Chloride) 50 mls @ 100 mls/hr IVPB Q12H [facility] Insulin Glargine (Lantus) 8 unit SC HS [facility] Last Admin: 03/18/17 21:23 Dose: Not Given Insulin Human Regular (Novolin R) 0 unit SC ACHS [facility] PRN Reason: Protocol Last Admin: 03/19/17 16:25 Dose: Not Given Lactic Acid (Lac-Hydrin 12% Lotion (225 G)) 0 gm EXT BID [facility] Last Admin: 03/19/17 11:00 Dose: 1 applic Loperamide HCl (Imodium) 2 mg PO Q4H PRN PRN Reason: Diarrhea Last Admin: 03/18/17 09:11 Dose: 2 mg Lorazepam (Ativan) 0.5 mg PO HS PRN PRN Reason: Anxiety Last Admin: 03/18/17 04:34 Dose: 0.5 mg Magnesium Oxide (Mag-Ox) 400 mg PO DAILY [facility] Last Admin: 03/19/17 10:28 Dose: 400 mg Multivitamins (Hexavitamin) 1 tab PO DAILY [facility] Last Admin: 03/19/17 11:27 Dose: 1 tab Ofloxacin (Ocuflox Ophth 0.3%) 0 ml OD QID [facility] Last Admin: 03/19/17 13:43 Dose: 1 drop Potassium Chloride (Potassium Chloride Oral Soln) 20 meq PO BID [facility] Last Admin: 03/19/17 10:26 Dose: 20 meq Prednisolone Acetate (Pred Forte 1% Opht Susp) 0 ml OD QID [facility] Last Admin: 03/19/17 13:43 Dose: 1 drop Pyridostigmine [place] (Mestinon Tab) 60 mg PO TID [facility] Last Admin: 03/19/17 13:44 Dose: Not Given Timolol Maleate (Timoptic 0.5% Ophth Soln) 1 drop OD BID [facility] Last Admin: 03/19/17 11:00 Dose: 1 drop - Labs Labs: 03/19/17 06:43 03/19/17 06:43 PT 25.1 SECONDS (9.7-12.2) H 03/14/17 10:56 INR 2.1 03/14/17 10:56 APTT 39 SECONDS (21-34) H 03/14/17 10:56
[2017-03-19] MEDS: Acetaminophen-Codeine 300/30 mg Tab PO PRN (17:32)
[2017-03-19] MEDS: (Lantus) Insulin Glargine, Recombinant SC SCH (21:28)
--- NOTE | 2017-03-19 23:01 | CP.PCM.PN ---
Subjective - Date & Time of Evaluation Date of Evaluation: 03/19/17 Time of Evaluation: 13:20 - Subjective Subjective: Patient responsive and in no distress. Patassium 2.6, and platlets 24, 000. Nephrology consult requested with Dr Bedoya. Patient also evaluated by Dr Tom. Supplemental K ordered. Objective - Vital Signs/Intake and Output Vital Signs (last 24 hours): Temp Pulse Resp BP Pulse Ox 98.0 F 66 18 109/72 96 03/19/17 17:23 03/19/17 17:23 03/19/17 17:23 03/19/17 17:23 03/19/17 17:23 Intake and Output: 03/19/17 03/20/17 18:59 06:59 Intake Total 260 Balance 260 - Medications Medications: Current Medications Acetaminophen/Codeine Phosphate (Tylenol/Codeine 300 Mg/30 Mg) 1 ea PO Q6 PRN PRN Reason: Pain, moderate (4-7) Last Admin: 03/19/17 17:32 Dose: 1 ea Calcium/Vitamin D (Oscal-D 250 Mg-125 Units Tab) 1 tab PO DAILY [facility] Last Admin: 03/19/17 10:28 Dose: 1 tab Dextrose (Dextrose 50% Inj) 0 ml IVP .STAT PRN; Protocol PRN Reason: Hypoglycemia Protocol Last Admin: 03/14/17 06:59 Dose: 50 ml Famotidine (Pepcid) 20 mg PO DAILY [facility] Last Admin: 03/19/17 10:29 Dose: 20 mg Ferrous Sulfate (Feosol) 325 mg PO DAILY [facility] Last Admin: 03/19/17 10:27 Dose: 325 mg Folic Acid (Folic Acid) 1 mg PO DAILY [facility] Last Admin: 03/19/17 10:27 Dose: 1 mg Furosemide (Lasix) 40 mg PO DAILY [facility] Last Admin: 03/19/17 11:34 Dose: 40 mg Metronidazole (Flagyl) 500 mg in 100 mls @ 100 mls/hr IVPB Q8H [facility] Last Admin: 03/19/17 21:27 Dose: 100 mls/hr Tigecycline 50 mg/ Sodium (Chloride) 50 mls @ 100 mls/hr IVPB Q12H [facility] Insulin Glargine (Lantus) 8 unit SC HS [facility] Last Admin: 03/19/17 21:28 Dose: Not Given Insulin Human Regular (Novolin R) 0 unit SC ACHS [facility] PRN Reason: Protocol Last Admin: 03/19/17 21:27 Dose: Not Given Lactic Acid (Lac-Hydrin 12% Lotion (225 G)) 0 gm EXT BID [facility] Last Admin: 03/19/17 17:39 Dose: 1 applic Lorazepam (Ativan) 0.5 mg PO HS PRN PRN Reason: Anxiety Last Admin: 03/18/17 04:34 Dose: 0.5 mg Magnesium Oxide (Mag-Ox) 400 mg PO DAILY [facility] Last Admin: 03/19/17 10:28 Dose: 400 mg Multivitamins (Hexavitamin) 1 tab PO DAILY [facility] Last Admin: 03/19/17 11:27 Dose: 1 tab Ofloxacin (Ocuflox Ophth 0.3%) 0 ml OD QID [facility] Last Admin: 03/19/17 21:27 Dose: 1 drop Potassium Chloride (Potassium Chloride Oral Soln) 20 meq PO BID [facility] Last Admin: 03/19/17 17:37 Dose: 20 meq Prednisolone Acetate (Pred Forte 1% Opht Susp) 0 ml OD QID [facility] Last Admin: 03/19/17 21:28 Dose: 1 drop Pyridostigmine [place] (Mestinon Tab) 60 mg PO TID [facility] Last Admin: 03/19/17 17:44 Dose: 60 mg Timolol Maleate (Timoptic 0.5% Ophth Soln) 1 drop OD BID [facility] Last Admin: 03/19/17 18:30 Dose: 1 drop - Labs Labs: 03/19/17 06:43 03/19/17 06:43 PT 25.1 SECONDS (9.7-12.2) H 03/14/17 10:56 INR 2.1 03/14/17 10:56 APTT 39 SECONDS (21-34) H 03/14/17 10:56 - Constitutional Appears: Chronically Ill - Head Exam Head Exam: NORMOCEPHALIC - Eye Exam Eye Exam: Normal appearance, Periorbital tenderness Pupil Exam: NORMAL ACCOMODATION - ENT Exam ENT Exam: Normal Exam - Neck Exam Neck Exam: Normal Inspection - Respiratory Exam Respiratory Exam: Decreased Breath Sounds - Cardiovascular Exam Cardiovascular Exam: REGULAR RHYTHM - GI/Abdominal Exam GI & Abdominal Exam: Hyperactive Bowel Sounds - Rectal Exam Rectal Exam: Deferred - Exam External exam: NORMAL EXTERNAL EXAM - Extremities Exam Extremities Exam: Tenderness - Back Exam Back Exam: NORMAL INSPECTION - Neurological Exam Neurological Exam: Awake - Psychiatric Exam Psychiatric exam: Depressed - Skin Skin Exam: Dry Assessment and Plan (1) Myelodysplasia (myelodysplastic syndrome) Status: Acute (2) Severe anemia Status: Acute (3) Degenerative disc disease at L5-S1 level Status: Acute (4) Osteoarthritis Status: Acute (5) Thrombocytopenia Status: Acute (6) Sepsis Status: Acute
[2017-03-20] MEDS: metroNIDAZOLE IV 500 mg/100 ml 500 MG/100 ML BAG IVPB SCH ×3 (02:24→17:41)
[2017-03-20 06:26] LABS: HEMATOCRIT 31.7 % (34.0-47.0); MEAN CELL VOLUME 93.7 fL (81.0-99.0); MEAN CORPUSCULAR HEMOGLOBIN 30.4 pg (27.0-31.0); MEAN CORPUSCULAR HGB CONC 32.4 g/dL (33.0-37.0); RED CELL DISTRIBUTION WIDTH 20.6 % (11.5-14.5); WHITE BLOOD COUNT 22.1 K/uL (4.8-10.8)
--- NOTE | 2017-03-20 06:33 | PN ---
TIME OF EVALUATION: 7:10 a.m. NEUROLOGICAL PROBLEM: Generalized myasthenia gravis with the impending respiratory failure. PHYSICAL EXAMINATION: VITAL SIGNS: Blood pressure 144/73, mean arterial pressure of 86, respiratory rate 20, temperature 97.4 with pulse rate 64. The patient's workup was completed for neuromuscular junctional disease. It showed positive acetylcholine receptor antibodies which is high. Clinical examination also consistent with myasthenia gravis. Her oral pyridostigmine is not effective for now. The patient was advised to have Viraj catheter for plasmapheresis at least 1.5 L change every other day x5. The patient has also requested to have a change of address clerk to pursue plasmapheresis. For the patient's benefit, the patient should be moved to the unit during the plasmapheresis at least 2 to 3 sittings. When it is medically stable, the patient can be moved back to telemetry. Continue with present management. Keep the mean arterial pressure around 90 to 100. The patient will be followed closely with you. Javad Cota MD
[2017-03-20 06:39] LABS: BLOOD UREA NITROGEN 17 mg/dL (7-17); CALCIUM 7.8 mg/dl (8.6-10.4); CARBON DIOXIDE 27 mmol/L (22-30); CHLORIDE 111 mmol/L (98-107); GFR AFRICAN-AMERICAN > 60; GLUCOSE,RANDOM 104 mg/dL (65-105); POTASSIUM 4.1 mmol/L (3.6-5.2); SODIUM 143 mmol/L (132-148)
[2017-03-20 06:52] LABS: INR 2.8
[2017-03-20] MEDS: (Novolin R) Insulin Human Regular 100 units/ml vial SC SCH ×4 (07:17→21:15)
[2017-03-20] MEDS: Multiple Vitamins Tab PO SCH (10:39)
[2017-03-20] MEDS: Magnesium Oxide 400 mg Tab UD PO SCH (10:39)
[2017-03-20] MEDS: Ammonium Lactate 12% Lotion (225 g) EXT SCH ×2 (10:39→17:41)
[2017-03-20] MEDS: Potassium Chloride 20 mEq/15 ml LIQ UD PO SCH ×2 (10:40→17:42)
--- NOTE | 2017-03-20 11:29 | CP.PCM.PN ---
Subjective - Date & Time of Evaluation Date of Evaluation: 03/20/17 Time of Evaluation: 11:26 - Subjective Subjective: seen and examined, discussed w/ RN Pt is confused, unable to obtain ROS. denies any pain Awaiting catheter placement. Low platelets noted BP stable potassium supplemented and within normal limits Objective - Vital Signs/Intake and Output Vital Signs (last 24 hours): Temp Pulse Resp BP Pulse Ox 97.3 F L 67 20 112/70 97 03/20/17 08:20 03/20/17 08:20 03/20/17 08:20 03/20/17 08:20 03/20/17 08:20 - Medications Medications: Current Medications Acetaminophen/Codeine Phosphate (Tylenol/Codeine 300 Mg/30 Mg) 1 ea PO Q6 PRN PRN Reason: Pain, moderate (4-7) Last Admin: 03/19/17 17:32 Dose: 1 ea Dextrose (Dextrose 50% Inj) 0 ml IVP .STAT PRN; Protocol PRN Reason: Hypoglycemia Protocol Last Admin: 03/14/17 06:59 Dose: 50 ml Famotidine (Pepcid) 20 mg PO DAILY [facility] Last Admin: 03/20/17 10:40 Dose: Not Given Metronidazole (Flagyl) 500 mg in 100 mls @ 100 mls/hr IVPB Q8H [facility] Last Admin: 03/20/17 10:36 Dose: 100 mls/hr Tigecycline 50 mg/ Sodium (Chloride) 50 mls @ 100 mls/hr IVPB Q12H [facility] Last Admin: 03/20/17 00:04 Dose: 100 mls/hr Insulin Glargine (Lantus) 8 unit SC HS [facility] Last Admin: 03/19/17 21:28 Dose: Not Given Insulin Human Regular (Novolin R) 0 unit SC ACHS [facility] PRN Reason: Protocol Last Admin: 03/20/17 07:17 Dose: Not Given Lactic Acid (Lac-Hydrin 12% Lotion (225 G)) 0 gm EXT BID [facility] Last Admin: 03/20/17 10:39 Dose: 1 applic Lorazepam (Ativan) 0.5 mg PO HS PRN PRN Reason: Anxiety Last Admin: 03/18/17 04:34 Dose: 0.5 mg Magnesium Oxide (Mag-Ox) 400 mg PO DAILY [facility] Last Admin: 03/20/17 10:39 Dose: Not Given Ofloxacin (Ocuflox Ophth 0.3%) 0 ml OD QID [facility] Last Admin: 03/19/17 21:27 Dose: 1 drop Potassium Chloride (Potassium Chloride Oral Soln) 20 meq PO BID [facility] Last Admin: 03/20/17 10:40 Dose: Not Given Prednisolone Acetate (Pred Forte 1% Opht Susp) 0 ml OD QID [facility] Last Admin: 03/19/17 21:28 Dose: 1 drop Pyridostigmine [place] (Mestinon Tab) 60 mg PO TID [facility] Last Admin: 03/20/17 10:39 Dose: Not Given Timolol Maleate (Timoptic 0.5% Ophth Soln) 1 drop OD BID [facility] Last Admin: 03/19/17 18:30 Dose: 1 drop - Labs Labs: 03/20/17 06:17 03/20/17 06:17 PT 33.1 SECONDS (9.7-12.2) H* 03/20/17 06:17 INR 2.8 03/20/17 06:17 APTT 45 SECONDS (21-34) H 03/20/17 06:17 - Constitutional Appears: Non-toxic, No Acute Distress, Confused, Chronically Ill - Head Exam Head Exam: NORMAL INSPECTION - Eye Exam Additional comments: rt eye with erythematous tisue around lower eyelid - ENT Exam ENT Exam: Mucous Membranes Dry - Neck Exam Neck Exam: Normal Inspection - Respiratory Exam Respiratory Exam: Clear to Ausculation Bilateral, NORMAL BREATHING PATTERN - Cardiovascular Exam Cardiovascular Exam: REGULAR RHYTHM, RRR - GI/Abdominal Exam GI & Abdominal Exam: Distended, Soft - Extremities Exam Extremities Exam: Normal Inspection - Back Exam Back Exam: NORMAL INSPECTION - Neurological Exam Neurological Exam: Alert, Awake - Psychiatric Exam Psychiatric exam: Normal Affect, Normal Mood - Skin Skin Exam: Warm Assessment and Plan (1) Thrombocytopathia Status: Acute (2) Carbapenem-resistant bacterial infection Status: Acute (3) Hypokalemia Status: Acute (4) Meningioma Status: Acute (5) Myasthenia Status: Acute (6) Myelodysplasia (myelodysplastic syndrome) Status: Acute - Assessment and Plan (Free Text) Assessment: await catheter placement To start plasma exchange, orders written by Dr Bedoya.
--- NOTE | 2017-03-20 11:31 | CP.PCM.PN ---
Subjective - Date & Time of Evaluation Date of Evaluation: 03/20/17 Time of Evaluation: 11:00 - Subjective Subjective: Podiatry Progress Note- Dr. Thompson: 76 yo patient seen at bedside today for f/u of chronic right heel ulceration. Seen resting in bed with offloading boots in place. Appears more awake today, but still quite lethargic and unable to orient. Recently diagnosed with meningioma and myasthenia gravis. Pt denies any pain or discomfort to b/l lower extremities. Objective - Vital Signs/Intake and Output Vital Signs (last 24 hours): Temp Pulse Resp BP Pulse Ox 97.3 F L 67 20 112/70 97 03/20/17 08:20 03/20/17 08:20 03/20/17 08:20 03/20/17 08:20 03/20/17 08:20 - Medications Medications: Current Medications Acetaminophen/Codeine Phosphate (Tylenol/Codeine 300 Mg/30 Mg) 1 ea PO Q6 PRN PRN Reason: Pain, moderate (4-7) Last Admin: 03/19/17 17:32 Dose: 1 ea Dextrose (Dextrose 50% Inj) 0 ml IVP .STAT PRN; Protocol PRN Reason: Hypoglycemia Protocol Last Admin: 03/14/17 06:59 Dose: 50 ml Famotidine (Pepcid) 20 mg PO DAILY [facility] Last Admin: 03/20/17 10:40 Dose: Not Given Metronidazole (Flagyl) 500 mg in 100 mls @ 100 mls/hr IVPB Q8H [facility] Last Admin: 03/20/17 10:36 Dose: 100 mls/hr Tigecycline 50 mg/ Sodium (Chloride) 50 mls @ 100 mls/hr IVPB Q12H [facility] Last Admin: 03/20/17 00:04 Dose: 100 mls/hr Insulin Glargine (Lantus) 8 unit SC HS [facility] Last Admin: 03/19/17 21:28 Dose: Not Given Insulin Human Regular (Novolin R) 0 unit SC ACHS [facility] PRN Reason: Protocol Last Admin: 03/20/17 07:17 Dose: Not Given Lactic Acid (Lac-Hydrin 12% Lotion (225 G)) 0 gm EXT BID [facility] Last Admin: 03/20/17 10:39 Dose: 1 applic Lorazepam (Ativan) 0.5 mg PO HS PRN PRN Reason: Anxiety Last Admin: 03/18/17 04:34 Dose: 0.5 mg Magnesium Oxide (Mag-Ox) 400 mg PO DAILY [facility] Last Admin: 03/20/17 10:39 Dose: Not Given Ofloxacin (Ocuflox Ophth 0.3%) 0 ml OD QID [facility] Last Admin: 03/19/17 21:27 Dose: 1 drop Potassium Chloride (Potassium Chloride Oral Soln) 20 meq PO BID [facility] Last Admin: 03/20/17 10:40 Dose: Not Given Prednisolone Acetate (Pred Forte 1% Opht Susp) 0 ml OD QID [facility] Last Admin: 03/19/17 21:28 Dose: 1 drop Pyridostigmine [place] (Mestinon Tab) 60 mg PO TID [facility] Last Admin: 03/20/17 10:39 Dose: Not Given Timolol Maleate (Timoptic 0.5% Ophth Soln) 1 drop OD BID [facility] Last Admin: 03/19/17 18:30 Dose: 1 drop - Labs Labs: 03/20/17 06:17 03/20/17 06:17 PT 33.1 SECONDS (9.7-12.2) H* 03/20/17 06:17 INR 2.8 03/20/17 06:17 APTT 45 SECONDS (21-34) H 03/20/17 06:17 - Constitutional Appears: Non-toxic, No Acute Distress, Chronically Ill - Extremities Exam Additional comments: BL lower ext exam: VASC- pedal pulses faintly palpable, cft >4 sec to all digits, chronic lymphadema DERM- right heel ulcer resolved, left heel is intact with no lesions NEURO- pedal sensation somewhat diminished ORTHO- slight tenderness to palp bl heels - Psychiatric Exam Additional comments: unable to assess Assessment and Plan - Assessment and Plan (Free Text) Assessment: 76 yo female patient w/ chronic lymphadema to lower extremities, resolved right foot ulcer Plan: Pt S&E at bedside Plan discussed with Dr. Thompson c/w offloading heel boots stable per podiatry will monitor
[2017-03-20] MEDS: PrednisoLONE 1% Opht Susp(5 ml) OD SCH ×4 (11:37→22:12)
[2017-03-20] MEDS: Calcium-Vit D 250 mg-125 Units Tab UD PO SCH (11:38)
[2017-03-20] MEDS: Ofloxacin 0.3% Ophth Soln OD SCH ×4 (11:38→22:12)
--- NOTE | 2017-03-20 13:06 | PN ---
DATE: 03/20/2017 NEUROLOGICAL PROBLEM: Myasthenia gravis, pending for plasmapheresis. PHYSICAL EXAMINATION VITAL SIGNS: Blood pressure 112/69, mean arterial pressure of 83, respiratory rate 16, temperature 97.4. GENERAL: The patient is more awake, alert, ptosis is more pronounced, exophthalmos is with edema noted over the right eye, particularly the lower lid is edematous. LUNGS: The patient is comfortable, in no respiratory distress. EXTREMITIES: Complaining of both arm pain and inability to lift her arm in a sustained fashion. The patient's condition has been discussed with the surgeon as well as the director report, Dr. Bedoya. Plans are ahead for plasmapheresis. Continue Mestinon for now. Javad Cota MD
[2017-03-20] MEDS ORDERED: Phytonadione 2.5 MG/0.5 TAB TAB PO ONE (16:30)
--- NOTE | 2017-03-20 16:41 | CP.PCM.PN ---
Subjective - Date & Time of Evaluation Date of Evaluation: 03/20/17 Time of Evaluation: 16:36 - Subjective Subjective: The patient remains drowsy, but is more awake today, answering questions appropriately. The swelling, proptosis and lower eyelid redness and ulceration seems worse. The aptient is scheduled for plasmapheresis catheter placement tomorrow. Objective - Vital Signs/Intake and Output Vital Signs (last 24 hours): Temp Pulse Resp BP Pulse Ox 97.3 F L 70 20 115/64 95 03/20/17 15:51 03/20/17 15:51 03/20/17 15:51 03/20/17 15:51 03/20/17 15:51 Intake and Output: 03/20/17 03/20/17 06:59 18:59 Intake Total 0 Balance 0 - Medications Medications: Current Medications Acetaminophen/Codeine Phosphate (Tylenol/Codeine 300 Mg/30 Mg) 1 ea PO Q6 PRN PRN Reason: Pain, moderate (4-7) Last Admin: 03/19/17 17:32 Dose: 1 ea Albuterol Sulfate (Albuterol 0.042% Inhal [place] (1.25mg/3ml) Ud) 1.25 mg INH RTID [facility] Dextrose (Dextrose 50% Inj) 0 ml IVP .STAT PRN; Protocol PRN Reason: Hypoglycemia Protocol Last Admin: 03/14/17 06:59 Dose: 50 ml Famotidine (Pepcid) 20 mg PO DAILY [facility] Last Admin: 03/20/17 10:40 Dose: Not Given Metronidazole (Flagyl) 500 mg in 100 mls @ 100 mls/hr IVPB Q8H [facility] Last Admin: 03/20/17 10:36 Dose: 100 mls/hr Tigecycline 50 mg/ Sodium (Chloride) 50 mls @ 100 mls/hr IVPB Q12H [facility] Last Admin: 03/20/17 11:36 Dose: 100 mls/hr Insulin Glargine (Lantus) 8 unit SC HS [facility] Last Admin: 03/19/17 21:28 Dose: Not Given Insulin Human Regular (Novolin R) 0 unit SC ACHS [facility] PRN Reason: Protocol Last Admin: 03/20/17 11:47 Dose: Not Given Lactic Acid (Lac-Hydrin 12% Lotion (225 G)) 0 gm EXT BID [facility] Last Admin: 03/20/17 10:39 Dose: 1 applic Lorazepam (Ativan) 0.5 mg PO HS PRN PRN Reason: Anxiety Last Admin: 03/18/17 04:34 Dose: 0.5 mg Magnesium Oxide (Mag-Ox) 400 mg PO DAILY [facility] Last Admin: 03/20/17 10:39 Dose: Not Given Ofloxacin (Ocuflox Ophth 0.3%) 0 ml OD QID [facility] Last Admin: 03/20/17 14:21 Dose: 1 drop Potassium Chloride (Potassium Chloride Oral Soln) 20 meq PO BID [facility] Last Admin: 03/20/17 10:40 Dose: Not Given Prednisolone Acetate (Pred Forte 1% Opht Susp) 0 ml OD QID [facility] Last Admin: 03/20/17 14:21 Dose: 1 drop Pyridostigmine [place] (Mestinon Tab) 60 mg PO TID [facility] Last Admin: 03/20/17 14:20 Dose: Not Given Timolol Maleate (Timoptic 0.5% Ophth Soln) 1 drop OD BID [facility] Last Admin: 03/20/17 11:37 Dose: 1 drop - Labs Labs: 03/20/17 06:17 03/20/17 06:17 PT 33.1 SECONDS (9.7-12.2) H* 03/20/17 06:17 INR 2.8 03/20/17 06:17 APTT 45 SECONDS (21-34) H 03/20/17 06:17 Assessment and Plan (1) Myelodysplasia (myelodysplastic syndrome) Assessment & Plan: Pancytopenia and severe anemia, most likely secondary to MDS, the patient did not want a bone marrow done. ?? Rt. frontal meningioma, with edema, ? contributing to eye findings. May need steroids for the brain edema, will start once plasmapheresis started. Getting platelets and FFPs prior to procedure Status: Acute
--- NOTE | 2017-03-20 17:22 | PN ---
SUBJECTIVE: The patient is in bed. She is afebrile. PHYSICAL EXAMINATION: VITAL SIGNS: Blood pressure 114/70, pulse is 72 per minute, respirations 18 per minute, hemoglobin oxygen saturation of 97% on nasal canula 2 L oxygen. GENERAL: She is not in acute distress in [place] position. She was seen by Hematology/Oncology for myelodysplasia with severe thrombocytopenia. HEART: Regular. LUNGS: Diminished breath sounds over the lung bases. Rhonchi decreased. ABDOMEN: Soft. EXTREMITIES: Legs: No edema. LABORATORY DATA: White count is 22,100, hemoglobin 10.3, platelet count 19,000. PT is 33.1 and INR 2.8. Potassium is 4.1, BUN is 17, creatinine is 0.9. Chest x-ray shows bilateral pulmonary congestive changes and cardiomegaly. IMPRESSION: Respiratory insufficiency, hypertensive cardiovascular disease, congestive heart failure, severe anemia, thrombocytopenia, myelodysplasia, sepsis, and electrolyte imbalance. Now, the serum potassium is normal at 4.1. PLAN: We will give Lasix in view of pulmonary congestive changes and continue with bronchodilators and continue with the antibiotics as recommended by infectious disease specialist and followup with Hematology/Oncology. Abundio Silva MD MTDDagmar
[2017-03-20] MEDS: Albuterol 0.042% Inhal Sol (1.25 mg/3 mL) UD INH SCH (20:51)
[2017-03-20] MEDS: (Lantus) Insulin Glargine, Recombinant SC SCH (21:15)
--- NOTE | 2017-03-20 23:01 | CP.PCM.PN ---
Subjective - Date & Time of Evaluation Date of Evaluation: 03/20/17 Time of Evaluation: 13:35 - Subjective Subjective: Patient lethargic and confused. Hgb 10,platlets 19,000. She is scheduled for insertion of plasmaporesis catheter in AM. Objective - Vital Signs/Intake and Output Vital Signs (last 24 hours): Temp Pulse Resp BP Pulse Ox 97.3 F L 70 20 111/66 95 03/20/17 15:51 03/20/17 15:51 03/20/17 15:51 03/20/17 22:07 03/20/17 15:51 Intake and Output: 03/20/17 03/21/17 18:59 06:59 Intake Total 290 300 Balance 290 300 - Medications Medications: Current Medications Acetaminophen/Codeine Phosphate (Tylenol/Codeine 300 Mg/30 Mg) 1 ea PO Q6 PRN PRN Reason: Pain, moderate (4-7) Last Admin: 03/19/17 17:32 Dose: 1 ea Albuterol Sulfate (Albuterol 0.042% Inhal Tricia (1.25mg/3ml) Ud) 1.25 mg INH RTID [facility] Last Admin: 03/20/17 20:51 Dose: 1.25 mg Dextrose (Dextrose 50% Inj) 0 ml IVP .STAT PRN; Protocol PRN Reason: Hypoglycemia Protocol Last Admin: 03/14/17 06:59 Dose: 50 ml Famotidine (Pepcid) 20 mg PO DAILY [facility] Last Admin: 03/20/17 10:40 Dose: Not Given Metronidazole (Flagyl) 500 mg in 100 mls @ 100 mls/hr IVPB Q8H [facility] Last Admin: 03/20/17 17:41 Dose: 100 mls/hr Tigecycline 50 mg/ Sodium (Chloride) 50 mls @ 100 mls/hr IVPB Q12H [facility] Last Admin: 03/20/17 11:36 Dose: 100 mls/hr Insulin Glargine (Lantus) 8 unit SC HS [facility] Last Admin: 03/20/17 21:15 Dose: Not Given Insulin Human Regular (Novolin R) 0 unit SC ACHS [facility] PRN Reason: Protocol Last Admin: 03/20/17 21:15 Dose: Not Given Lorazepam (Ativan) 0.5 mg PO HS PRN PRN Reason: Anxiety Last Admin: 03/18/17 04:34 Dose: 0.5 mg Magnesium Oxide (Mag-Ox) 400 mg PO DAILY [facility] Last Admin: 03/20/17 10:39 Dose: Not Given Ofloxacin (Ocuflox Ophth 0.3%) 0 ml OD QID [facility] Last Admin: 03/20/17 22:12 Dose: 1 drop Potassium Chloride (Potassium Chloride Oral Soln) 20 meq PO BID [facility] Last Admin: 03/20/17 17:42 Dose: 20 meq Prednisolone Acetate (Pred Forte 1% Opht Susp) 0 ml OD QID [facility] Last Admin: 03/20/17 22:12 Dose: 1 drop Pyridostigmine [place] (Mestinon Tab) 60 mg PO TID [facility] Last Admin: 03/20/17 17:42 Dose: 60 mg Timolol Maleate (Timoptic 0.5% Ophth Soln) 1 drop OD BID [facility] Last Admin: 03/20/17 17:42 Dose: 1 drop - Labs Labs: 03/20/17 06:17 03/20/17 06:17 PT 33.1 SECONDS (9.7-12.2) H* 03/20/17 06:17 INR 2.8 03/20/17 06:17 APTT 45 SECONDS (21-34) H 03/20/17 06:17 - Constitutional Appears: Chronically Ill - Head Exam Head Exam: NORMOCEPHALIC - ENT Exam ENT Exam: Normal Exam - Neck Exam Neck Exam: Normal Inspection - Respiratory Exam Respiratory Exam: Decreased Breath Sounds - Cardiovascular Exam Cardiovascular Exam: REGULAR RHYTHM - GI/Abdominal Exam GI & Abdominal Exam: Hyperactive Bowel Sounds - Rectal Exam Rectal Exam: Deferred - Exam External exam: NORMAL EXTERNAL EXAM - Extremities Exam Extremities Exam: Tenderness - Back Exam Back Exam: NORMAL INSPECTION - Neurological Exam Neurological Exam: Altered - Psychiatric Exam Psychiatric exam: Depressed - Skin Skin Exam: Dry Assessment and Plan (1) Myelodysplasia (myelodysplastic syndrome) Status: Acute (2) Severe anemia Status: Acute (3) Degenerative disc disease at L5-S1 level Status: Acute (4) Osteoarthritis Status: Acute (5) Thrombocytopenia Status: Acute (6) Sepsis Status: Acute
[2017-03-21] MEDS: metroNIDAZOLE IV 500 mg/100 ml 500 MG/100 ML BAG IVPB SCH ×3 (04:14→17:51)
[2017-03-21] MEDS: (Novolin R) Insulin Human Regular 100 units/ml vial SC SCH ×4 (07:23→22:20)
[2017-03-21] MEDS: Albuterol 0.042% Inhal Sol (1.25 mg/3 mL) UD INH SCH ×3 (07:39→20:28)
[2017-03-21 07:45] LABS: INR 1.6
[2017-03-21 07:52] LABS: BASO % 0.2 % (0.0-2.0); EOS % 0.1 % (0.0-4.0); LYMPH # 2.7 K/uL (1.0-4.3); LYMPH % 14.8 % (20.0-40.0); MEAN CORPUSCULAR HEMOGLOBIN 30.2 pg (27.0-31.0); MEAN CORPUSCULAR HGB CONC 31.1 g/dL (33.0-37.0); MEAN PLATELET VOLUME 8.1 fL (7.2-11.7); MONO # 4.8 K/uL (0.0-0.8); MONO % 26.2 % (0.0-10.0); NRBC % 0.3 % (0.0-2.0); RED CELL DISTRIBUTION WIDTH 21.1 % (11.5-14.5); WHITE BLOOD COUNT 18.2 K/uL (4.8-10.8)
[2017-03-21 08:16] LABS: MEAN CELL VOLUME 97.1 fL (81.0-99.0); PLATELET COUNT 99 K/uL (130-400)
[2017-03-21 09:19] LABS: BLOOD UREA NITROGEN 16 mg/dL (7-17); CALCIUM 8.4 mg/dl (8.6-10.4); CARBON DIOXIDE 29 mmol/L (22-30); CHLORIDE 109 mmol/L (98-107); GFR AFRICAN-AMERICAN > 60; GLUCOSE,RANDOM 77 mg/dL (65-105); POTASSIUM 3.7 mmol/L (3.6-5.2); SODIUM 145 mmol/L (132-148)
[2017-03-21 09:31] LABS: TOTAL CELLS COUNTED 100
[2017-03-21 09:32] LABS: NEUTROPHIL 61 % (50-75)
[2017-03-21] MEDS: Potassium Chloride 20 mEq/15 ml LIQ UD PO SCH ×2 (10:27→17:52)
[2017-03-21] MEDS: PrednisoLONE 1% Opht Susp(5 ml) OD SCH ×4 (10:27→21:40)
[2017-03-21] MEDS: Magnesium Oxide 400 mg Tab UD PO SCH (10:27)
[2017-03-21] MEDS: Ofloxacin 0.3% Ophth Soln OD SCH ×4 (10:27→21:39)
[2017-03-21] MEDS ORDERED: HEPARIN-NS 5,000 UNITS/500 ML 5,000 UNIT/500 ML BAG IV ONE (10:30)
[2017-03-21] MEDS ORDERED: Lidocaine 1% Inj (20ml) ONE (10:30)
[2017-03-21] MEDS ORDERED: Iohexol 240 (50 ml) ONE (11:51)
[2017-03-21] MEDS ORDERED: Propofol 10 mg/ml Inj (20 ML) ONE (11:54)
[2017-03-21] MEDS ORDERED: Midazolam 2 MG/2 ML VIAL ONE (11:54)
--- NOTE | 2017-03-21 12:54 | PCM.SURG1 ---
Surgeon's Initial Post Op Note - Surgeon's Notes Surgeon: Fransico Wheat Cleaner: Dianna PGY3 Type of Anesthesia: IV Sedation, Local Pre-Operative Diagnosis: Myasthenia Gravis Operative Findings: normal neck anatomy Post-Operative Diagnosis: same Operation Performed: NILAY aragon Specimen/Specimens Removed: none Estimated Blood Loss: EBL {In ML}: 20 Blood Products Given: N/A Drains Used: No Drains Post-Op Condition: Good Date of Surgery/Procedure: 03/21/17 Time of Surgery/Procedure: 12:53
[2017-03-21] MEDS ORDERED: HYDROmorphone 0.5 mg/0.5 ml ISec IVP PRN (12:56)
[2017-03-21] MEDS ORDERED: HYDROmorphone 0.5 mg/0.5 ml ISec ONE (12:58)
--- NOTE | 2017-03-21 14:06 | CP.PCM.PN ---
Subjective - Date & Time of Evaluation Date of Evaluation: 03/21/17 Time of Evaluation: 12:30 - Subjective Subjective: seen in pacu s/p right shiley confused, cannot obtain ROS Objective - Vital Signs/Intake and Output Vital Signs (last 24 hours): Temp Pulse Resp BP Pulse Ox 97 F L 65 10 L 115/54 L 100 03/21/17 12:52 03/21/17 13:30 03/21/17 13:30 03/21/17 13:30 03/21/17 13:30 Intake and Output: 03/21/17 03/21/17 06:59 18:59 Intake Total 604 250 Balance 604 250 - Medications Medications: Current Medications Acetaminophen/Codeine Phosphate (Tylenol/Codeine 300 Mg/30 Mg) 1 ea PO Q6 PRN PRN Reason: Pain, moderate (4-7) Last Admin: 03/19/17 17:32 Dose: 1 ea Albuterol Sulfate (Albuterol 0.042% Inhal Tricia (1.25mg/3ml) Ud) 1.25 mg INH RTID [facility] Last Admin: 03/21/17 13:37 Dose: Not Given Dextrose (Dextrose 50% Inj) 0 ml IVP .STAT PRN; Protocol PRN Reason: Hypoglycemia Protocol Last Admin: 03/14/17 06:59 Dose: 50 ml Famotidine (Pepcid) 20 mg PO DAILY [facility] Last Admin: 03/21/17 10:27 Dose: Not Given Hydromorphone HCl (Dilaudid) 0.5 mg IVP Q5M PRN PRN Reason: Pain, severe (8-10) Stop: 03/21/17 14:57 Metronidazole (Flagyl) 500 mg in 100 mls @ 100 mls/hr IVPB Q8H [facility] Last Admin: 03/21/17 09:44 Dose: 100 mls/hr Tigecycline 50 mg/ Sodium (Chloride) 50 mls @ 100 mls/hr IVPB Q12H [facility] Last Admin: 03/21/17 12:35 Dose: 50 mls Insulin Glargine (Lantus) 8 unit SC HS [facility] Last Admin: 03/20/17 21:15 Dose: Not Given Insulin Human Regular (Novolin R) 0 unit SC ACHS [facility] PRN Reason: Protocol Last Admin: 03/21/17 07:23 Dose: Not Given Lorazepam (Ativan) 0.5 mg PO HS PRN PRN Reason: Anxiety Last Admin: 03/18/17 04:34 Dose: 0.5 mg Magnesium Oxide (Mag-Ox) 400 mg PO DAILY [facility] Last Admin: 03/21/17 10:27 Dose: Not Given Ofloxacin (Ocuflox Ophth 0.3%) 0 ml OD QID [facility] Last Admin: 03/21/17 10:27 Dose: Not Given Ondansetron HCl (Zofran Inj) 4 mg IVP ONCE PRN PRN Reason: Nausea/Vomiting Stop: 03/21/17 14:57 Potassium Chloride (Potassium Chloride Oral Soln) 20 meq PO BID [facility] Last Admin: 03/21/17 10:27 Dose: Not Given Prednisolone Acetate (Pred Forte 1% Opht Susp) 0 ml OD QID [facility] Last Admin: 03/21/17 10:27 Dose: Not Given Pyridostigmine [place] (Mestinon Tab) 60 mg PO TID [facility] Last Admin: 03/21/17 10:27 Dose: Not Given Timolol Maleate (Timoptic 0.5% Ophth Soln) 1 drop OD BID [facility] Last Admin: 03/21/17 10:28 Dose: Not Given - Labs Labs: 03/21/17 07:17 03/21/17 08:16 PT 18.8 SECONDS (9.7-12.2) H D 03/21/17 07:17 INR 1.6 D 03/21/17 07:17 APTT 35 SECONDS (21-34) H D 03/21/17 07:17 - Constitutional Appears: No Acute Distress, Confused - Eye Exam Additional comments: right eye with erythema and swelling of lower lid - Neck Exam Neck Exam: Full ROM. absent: Lymphadenopathy - Respiratory Exam Respiratory Exam: Clear to Ausculation Bilateral. absent: Accessory Muscle Use - Cardiovascular Exam Cardiovascular Exam: REGULAR RHYTHM. absent: Rubs - GI/Abdominal Exam GI & Abdominal Exam: Soft, Normal Bowel Sounds. absent: Tenderness - Extremities Exam Extremities Exam: absent: Pedal Edema - Neurological Exam Neurological Exam: Awake. absent: Alert Assessment and Plan - Assessment and Plan (Free Text) Assessment: shiley in, await plasma pheresis will continue to follow
--- NOTE | 2017-03-21 14:59 | RAD ---
PROCEDURE: CHEST RADIOGRAPH, 1 VIEW HISTORY: S/P RT IJ COMPARISON: Comparison is made to 03/17/2027 T FINDINGS: LUNGS: Slight improvement in the previously seen moderate pulmonary vascular congestion especially at the right upper lobe since the previous exam. Otherwise no significant interval change. PLEURA: Small left pleural effusion is again noted. CARDIOVASCULAR: The cardiac silhouette is mildly enlarged. OSSEOUS STRUCTURES: No significant abnormalities. VISUALIZED UPPER ABDOMEN: Normal. OTHER FINDINGS: Interval insertion of right-sided hemodialysis catheter seen at appropriate position. No evidence of pneumothorax. IMPRESSION: Interval slight improvement in the lungs. Interval insertion of right-sided hemodialysis catheter seen at appropriate position .
--- NOTE | 2017-03-21 15:07 | RAD ---
PROCEDURE: Fluoroscopy up to 1 hr. HISTORY: MYASTHENIA GRAVIS COMPARISON: None TECHNIQUE: Standard protocol for this study/examination. FINDINGS: Total fluoroscopic time (continuous mode) utilized during the procedure: 2.0 Total exam DLP: (mGy/ m2): 0.394 IMPRESSION: Total fluoroscopic time (continuous mode) utilized during the procedure: 14.7 seconds.
--- NOTE | 2017-03-21 15:29 | CP.PCM.PN ---
Subjective - Date & Time of Evaluation Date of Evaluation: 03/21/17 Time of Evaluation: 09:00 - Subjective Subjective: EVENTS NOTED SHILEY IN ]] FOR PLASMAPHERESIS Objective - Vital Signs/Intake and Output Vital Signs (last 24 hours): Temp Pulse Resp BP Pulse Ox 97 F L 65 10 L 115/54 L 100 03/21/17 12:52 03/21/17 13:30 03/21/17 13:30 03/21/17 13:30 03/21/17 13:30 Intake and Output: 03/21/17 03/21/17 06:59 18:59 Intake Total 604 250 Balance 604 250 - Medications Medications: Current Medications Acetaminophen/Codeine Phosphate (Tylenol/Codeine 300 Mg/30 Mg) 1 ea PO Q6 PRN PRN Reason: Pain, moderate (4-7) Last Admin: 03/19/17 17:32 Dose: 1 ea Albuterol Sulfate (Albuterol 0.042% Inhal Tricia (1.25mg/3ml) Ud) 1.25 mg INH RTID [facility] Last Admin: 03/21/17 13:37 Dose: Not Given Dextrose (Dextrose 50% Inj) 0 ml IVP .STAT PRN; Protocol PRN Reason: Hypoglycemia Protocol Last Admin: 03/14/17 06:59 Dose: 50 ml Famotidine (Pepcid) 20 mg PO DAILY [facility] Last Admin: 03/21/17 10:27 Dose: Not Given Metronidazole (Flagyl) 500 mg in 100 mls @ 100 mls/hr IVPB Q8H [facility] Last Admin: 03/21/17 09:44 Dose: 100 mls/hr Tigecycline 50 mg/ Sodium (Chloride) 50 mls @ 100 mls/hr IVPB Q12H [facility] Last Admin: 03/21/17 12:35 Dose: 50 mls Insulin Glargine (Lantus) 8 unit SC HS [facility] Last Admin: 03/20/17 21:15 Dose: Not Given Insulin Human Regular (Novolin R) 0 unit SC ACHS [facility] PRN Reason: Protocol Last Admin: 03/21/17 15:11 Dose: Not Given Lorazepam (Ativan) 0.5 mg PO HS PRN PRN Reason: Anxiety Last Admin: 03/18/17 04:34 Dose: 0.5 mg Magnesium Oxide (Mag-Ox) 400 mg PO DAILY [facility] Last Admin: 03/21/17 10:27 Dose: Not Given Ofloxacin (Ocuflox Ophth 0.3%) 0 ml OD QID [facility] Last Admin: 03/21/17 15:11 Dose: Not Given Potassium Chloride (Potassium Chloride Oral Soln) 20 meq PO BID [facility] Last Admin: 03/21/17 10:27 Dose: Not Given Prednisolone Acetate (Pred Forte 1% Opht Susp) 0 ml OD QID [facility] Last Admin: 03/21/17 15:11 Dose: Not Given Pyridostigmine [place] (Mestinon Tab) 60 mg PO TID [facility] Last Admin: 03/21/17 15:11 Dose: Not Given Timolol Maleate (Timoptic 0.5% Ophth Soln) 1 drop OD BID [facility] Last Admin: 03/21/17 10:28 Dose: Not Given - Labs Labs: 03/21/17 07:17 03/21/17 08:16 PT 18.8 SECONDS (9.7-12.2) H D 03/21/17 07:17 INR 1.6 D 03/21/17 07:17 APTT 35 SECONDS (21-34) H D 03/21/17 07:17 - Constitutional Appears: Non-toxic, Confused, Cachectic, Chronically Ill - Head Exam Head Exam: ATRAUMATIC, NORMOCEPHALIC - Eye Exam Eye Exam: PERRL. absent: Scleral icterus - ENT Exam ENT Exam: Mucous Membranes Dry - Neck Exam Neck Exam: absent: Lymphadenopathy - Respiratory Exam Respiratory Exam: Decreased Breath Sounds - Cardiovascular Exam Cardiovascular Exam: REGULAR RHYTHM - GI/Abdominal Exam GI & Abdominal Exam: Distended Assessment and Plan (1) Myelodysplasia (myelodysplastic syndrome) Status: Acute (2) Severe anemia Status: Acute (3) Acute on chronic diastolic (congestive) heart failure Status: Acute (4) Anemia Status: Acute (5) Degenerative disc disease at L5-S1 level Status: Acute (6) Dehydration Status: Acute (7) Diabetes mellitus type 2 in obese Status: Acute (8) Carbapenem-resistant bacterial infection Status: Acute (9) Carbapenem-resistant bacterial infection Status: Acute
[2017-03-21] MEDS ORDERED: ceFAZolin IV 1 gm in Dextrose 0 GM/0 ML BAG IVPB ONE (15:30)
--- NOTE | 2017-03-21 18:05 | PN ---
DATE: SUBJECTIVE: Patient has had Viraj catheter placed in the operating room. The patient is in recovery now at the moment and she is waking up, answers questions. PHYSICAL EXAMINATION: GENERAL: She is oriented. She is recovering from sedation and anesthesia. VITAL SIGNS: Afebrile with blood pressure 115/54, pulse 65, her respiration varied between 10 to 18, hemoglobin oxygen saturation is 100% on FiO2 of 4 L via nasal cannula. HEART: Regular. No gallop rhythm. LUNGS: Diminished breath sounds, rhonchi decreased. ABDOMEN: Soft. EXTREMITIES: Legs, no change. LABORATORY DATA: White count is 18,200, hemoglobin 8.7, platelet count is 99,000. PT is 18.8 with INR 1.6. Serum sodium 145, serum potassium 3.7, chloride 109, BUN 16, and creatinine 0.9. X-ray is not available and will return in the morning. IMPRESSION: Respiratory insufficiency, myelodysplasia syndrome, anemia, thrombocytopenia, diabetes mellitus, chronic obstructive pulmonary disease with emphysema, hypertensive cardiovascular disease with congestive pulmonary changes, sepsis, electrolyte imbalance. PLAN: To continue with current measures and therapy, repeat chest x-ray in the morning, and follow up with lab work. Abundio Silva MD
--- NOTE | 2017-03-21 18:34 | OP ---
PROCEDURE DATE: 03/21/2017 PREOPERATIVE DIAGNOSIS: Myasthenia gravis, thrombocytopenia. PROCEDURE CARRIED OUT: Placement of Perm-A-Cath, right jugular vein with C-arm fluoroscopy and ultrasound-guided puncture, and micropuncture technique. SURGEON: Oliverio Bateman Jr., MD APPLICATION HELPER: None. ANESTHESIOLOGIST: Mr. Juárez. INDICATIONS: The patient is an older woman with variety of medical problems who requires access for plasmapheresis. OPERATING FINDINGS: Catheter was inserted uneventfully via the jugular vein. PROCEDURE: The patient was given local anesthesia using ultrasound guidance and micropuncture technique the right jugular vein cannulated. Under fluoroscopic control, guidewire was advanced centrally. A sheath dilator was passed over this and the catheter was positioned in the appropriate location, was flushed with heparinized saline with good flow and good return. Procedure was then terminated. Operation carried out Perm-A-Cath, right jugular vein with C-arm fluoroscopy and ultrasound-guided puncture. On ultrasound vein was patent, approximately 14 mm in diameter. Oliverio Bateman Jr., MD
[2017-03-21] MEDS ORDERED: MethylPREDNISolone 40 mg Vial IV ONE (21:30)
[2017-03-21] MEDS ORDERED: DiphenhydrAMINE 50 mg/ml Inj IVP ONE (21:30)
[2017-03-21] MEDS ORDERED: Calcium Gluconate 9.3 MEQ in Sodium Chloride 0.9% 250 ML IV ONE (22:00)
[2017-03-21] MEDS: (Lantus) Insulin Glargine, Recombinant SC SCH (22:20)
--- NOTE | 2017-03-21 23:06 | CP.PCM.PN ---
Subjective - Date & Time of Evaluation Date of Evaluation: 03/21/17 Time of Evaluation: 13:20 - Subjective Subjective: Patient mildly confused. Permacath was inserted today. Patient was given platlet transfusion before the proceedure. Objective - Vital Signs/Intake and Output Vital Signs (last 24 hours): Temp Pulse Resp BP Pulse Ox 97.2 F L 62 9 L 115/47 L 100 03/21/17 15:00 03/21/17 15:00 03/21/17 15:00 03/21/17 15:00 03/21/17 15:00 Intake and Output: 03/21/17 03/22/17 18:59 06:59 Intake Total 450 870 Balance 450 870 - Medications Medications: Current Medications Acetaminophen/Codeine Phosphate (Tylenol/Codeine 300 Mg/30 Mg) 1 ea PO Q6 PRN PRN Reason: Pain, moderate (4-7) Last Admin: 03/19/17 17:32 Dose: 1 ea Albuterol Sulfate (Albuterol 0.042% Inhal Tricia (1.25mg/3ml) Ud) 1.25 mg INH RTID [facility] Last Admin: 03/21/17 20:28 Dose: 1.25 mg Dexamethasone (Decadron Inj) 4 mg IVP DAILY [facility] Dextrose (Dextrose 50% Inj) 0 ml IVP .STAT PRN; Protocol PRN Reason: Hypoglycemia Protocol Last Admin: 03/14/17 06:59 Dose: 50 ml Famotidine (Pepcid) 20 mg PO DAILY [facility] Last Admin: 03/21/17 10:27 Dose: Not Given Metronidazole (Flagyl) 500 mg in 100 mls @ 100 mls/hr IVPB Q8H [facility] Last Admin: 03/21/17 17:51 Dose: 100 mls/hr Tigecycline 50 mg/ Sodium (Chloride) 50 mls @ 100 mls/hr IVPB Q12H [facility] Last Admin: 03/21/17 12:35 Dose: 50 mls Albumin Human (Albutein 5% 500 Ml) 500 mls @ 250 mls/hr IVPB Q2H [facility] Stop: 03/22/17 09:59 Last Admin: 03/21/17 21:49 Dose: 250 mls/hr Insulin Glargine (Lantus) 8 unit SC HS [facility] Last Admin: 03/21/17 22:20 Dose: Not Given Insulin Human Regular (Novolin R) 0 unit SC ACHS [facility] PRN Reason: Protocol Last Admin: 03/21/17 22:20 Dose: Not Given Lorazepam (Ativan) 0.5 mg PO HS PRN PRN Reason: Anxiety Last Admin: 03/18/17 04:34 Dose: 0.5 mg Magnesium Oxide (Mag-Ox) 400 mg PO DAILY [facility] Last Admin: 03/21/17 10:27 Dose: Not Given Ofloxacin (Ocuflox Ophth 0.3%) 0 ml OD QID [facility] Last Admin: 03/21/17 21:39 Dose: 1 drop Potassium Chloride (Potassium Chloride Oral Soln) 20 meq PO BID [facility] Last Admin: 03/21/17 17:52 Dose: 20 meq Prednisolone Acetate (Pred Forte 1% Opht Susp) 0 ml OD QID [facility] Last Admin: 03/21/17 21:40 Dose: 1 drop Pyridostigmine [place] (Mestinon Tab) 60 mg PO TID [facility] Last Admin: 03/21/17 17:52 Dose: 60 mg Timolol Maleate (Timoptic 0.5% Ophth Soln) 1 drop OD BID [facility] Last Admin: 03/21/17 17:53 Dose: 1 drop - Labs Labs: 03/21/17 07:17 03/21/17 08:16 PT 18.8 SECONDS (9.7-12.2) H D 03/21/17 07:17 INR 1.6 D 03/21/17 07:17 APTT 35 SECONDS (21-34) H D 03/21/17 07:17 - Constitutional Appears: Chronically Ill - Head Exam Head Exam: NORMOCEPHALIC - ENT Exam ENT Exam: Normal Oropharynx - Neck Exam Neck Exam: Normal Inspection - Respiratory Exam Respiratory Exam: Decreased Breath Sounds - Cardiovascular Exam Cardiovascular Exam: REGULAR RHYTHM - GI/Abdominal Exam GI & Abdominal Exam: Hyperactive Bowel Sounds - Rectal Exam Rectal Exam: Deferred - Exam External exam: NORMAL EXTERNAL EXAM - Back Exam Back Exam: NORMAL INSPECTION - Neurological Exam Neurological Exam: Altered - Psychiatric Exam Psychiatric exam: Depressed - Skin Skin Exam: Dry Assessment and Plan (1) Myelodysplasia (myelodysplastic syndrome) Status: Acute (2) Severe anemia Status: Acute (3) Degenerative disc disease at L5-S1 level Status: Acute (4) Osteoarthritis Status: Acute (5) Thrombocytopenia Status: Acute (6) Sepsis Status: Acute
[2017-03-22] MEDS: metroNIDAZOLE IV 500 mg/100 ml 500 MG/100 ML BAG IVPB SCH ×3 (03:32→18:10)
--- NOTE | 2017-03-22 06:38 | CP.PCM.PN ---
Subjective - Date & Time of Evaluation Date of Evaluation: 03/22/17 Time of Evaluation: 06:15 - Subjective Subjective: VASCULAR SURGERY PROGRESS NOTE FOR DR. SANDOVAL Patient seen and examined at bedside. No acute events overnight per nurse. Patient denies pain. She denies nausea or vomiting. She states that she hasn't eaten much since the surgery. She had plasmapharesis last night. Objective - Vital Signs/Intake and Output Vital Signs (last 24 hours): Temp Pulse Resp BP Pulse Ox 97.4 F L 60 20 105/62 97 03/21/17 23:35 03/21/17 23:35 03/21/17 23:35 03/21/17 23:35 03/21/17 23:35 Intake and Output: 03/21/17 03/22/17 18:59 06:59 Intake Total 450 870 Balance 450 870 - Medications Medications: Current Medications Acetaminophen/Codeine Phosphate (Tylenol/Codeine 300 Mg/30 Mg) 1 ea PO Q6 PRN PRN Reason: Pain, moderate (4-7) Last Admin: 03/19/17 17:32 Dose: 1 ea Albuterol Sulfate (Albuterol 0.042% Inhal Tricia (1.25mg/3ml) Ud) 1.25 mg INH RTID [facility] Last Admin: 03/21/17 20:28 Dose: 1.25 mg Dexamethasone (Decadron Inj) 4 mg IVP DAILY [facility] Dextrose (Dextrose 50% Inj) 0 ml IVP .STAT PRN; Protocol PRN Reason: Hypoglycemia Protocol Last Admin: 03/14/17 06:59 Dose: 50 ml Famotidine (Pepcid) 20 mg PO DAILY [facility] Last Admin: 03/21/17 10:27 Dose: Not Given Metronidazole (Flagyl) 500 mg in 100 mls @ 100 mls/hr IVPB Q8H [facility] Last Admin: 03/22/17 03:32 Dose: 100 mls/hr Tigecycline 50 mg/ Sodium (Chloride) 50 mls @ 100 mls/hr IVPB Q12H [facility] Last Admin: 03/22/17 00:53 Dose: 100 mls/hr Insulin Glargine (Lantus) 8 unit SC HS [facility] Last Admin: 03/21/17 22:20 Dose: Not Given Insulin Human Regular (Novolin R) 0 unit SC ACHS [facility] PRN Reason: Protocol Last Admin: 03/21/17 22:20 Dose: Not Given Lorazepam (Ativan) 0.5 mg PO HS PRN PRN Reason: Anxiety Last Admin: 03/18/17 04:34 Dose: 0.5 mg Magnesium Oxide (Mag-Ox) 400 mg PO DAILY [facility] Last Admin: 03/21/17 10:27 Dose: Not Given Ofloxacin (Ocuflox Ophth 0.3%) 0 ml OD QID [facility] Last Admin: 03/21/17 21:39 Dose: 1 drop Potassium Chloride (Potassium Chloride Oral Soln) 20 meq PO BID [facility] Last Admin: 03/21/17 17:52 Dose: 20 meq Prednisolone Acetate (Pred Forte 1% Opht Susp) 0 ml OD QID [facility] Last Admin: 03/21/17 21:40 Dose: 1 drop Pyridostigmine [place] (Mestinon Tab) 60 mg PO TID [facility] Last Admin: 03/21/17 17:52 Dose: 60 mg Timolol Maleate (Timoptic 0.5% Ophth Soln) 1 drop OD BID [facility] Last Admin: 03/21/17 17:53 Dose: 1 drop - Labs Labs: 03/21/17 07:17 03/21/17 08:16 PT 18.8 SECONDS (9.7-12.2) H D 03/21/17 07:17 INR 1.6 D 03/21/17 07:17 APTT 35 SECONDS (21-34) H D 03/21/17 07:17 - Constitutional Appears: Non-toxic, No Acute Distress, Chronically Ill - Eye Exam Additional comments: Right eye patch - Respiratory Exam Respiratory Exam: NORMAL BREATHING PATTERN. absent: Respiratory Distress - Cardiovascular Exam Cardiovascular Exam: +S1, +S2 - Neurological Exam Neurological Exam: Alert, Awake - Psychiatric Exam Psychiatric exam: Normal Affect, Normal Mood - Skin Additional comments: Right chest permacath dressing clean/dry/intact Assessment and Plan - Assessment and Plan (Free Text) Assessment: 76yo F with myasthenia gravis s/p Right IJ permacath POD#1 - Afebrile, VSS - Patient had plasmapharesis successfully last night via catheter - Dressing clean/dry/intact - Will recheck labs this AM - No further surgical intervention necessary - Further recs per Dr. Fransico Yi PGY-3
[2017-03-22 06:57] LABS: BASO # 0.1 K/uL (0.0-0.2); BASO % 0.4 % (0.0-2.0); HEMATOCRIT 29.4 % (34.0-47.0); LYMPH # 1.1 K/uL (1.0-4.3); LYMPH % 7.3 % (20.0-40.0); MEAN CELL VOLUME 96.1 fL (81.0-99.0); MEAN CORPUSCULAR HEMOGLOBIN 30.4 pg (27.0-31.0); MEAN CORPUSCULAR HGB CONC 31.7 g/dL (33.0-37.0); MEAN PLATELET VOLUME 9.1 fL (7.2-11.7); MONO # 0.2 K/uL (0.0-0.8); MONO % 1.3 % (0.0-10.0); NRBC % 0.2 % (0.0-2.0); RED CELL DISTRIBUTION WIDTH 20.2 % (11.5-14.5); WHITE BLOOD COUNT 15.4 K/uL (4.8-10.8)
[2017-03-22 07:05] LABS: PLATELET COUNT 28 K/uL (130-400)
[2017-03-22] MEDS: Albuterol 0.042% Inhal Sol (1.25 mg/3 mL) UD INH SCH ×3 (08:00→19:36)
--- NOTE | 2017-03-22 08:29 | CP.PCM.PN ---
Subjective - Date & Time of Evaluation Date of Evaluation: 03/22/17 Time of Evaluation: 08:27 - Subjective Subjective: s/p right IJ cath insertion then plat plasmapheresis done last PM as per nursing procedure went well alert, weak as before, eating ok still with thromocytopenia lytes stable Objective - Vital Signs/Intake and Output Vital Signs (last 24 hours): Temp Pulse Resp BP Pulse Ox 97.4 F L 60 20 105/62 97 03/21/17 23:35 03/21/17 23:35 03/21/17 23:35 03/21/17 23:35 03/21/17 23:35 Intake and Output: 03/22/17 03/22/17 06:59 18:59 Intake Total 870 Balance 870 - Medications Medications: Current Medications Acetaminophen/Codeine Phosphate (Tylenol/Codeine 300 Mg/30 Mg) 1 ea PO Q6 PRN PRN Reason: Pain, moderate (4-7) Last Admin: 03/19/17 17:32 Dose: 1 ea Albuterol Sulfate (Albuterol 0.042% Inhal Tricia (1.25mg/3ml) Ud) 1.25 mg INH RTID [facility] Last Admin: 03/22/17 08:00 Dose: 1.25 mg Dexamethasone (Decadron Inj) 4 mg IVP DAILY [facility] Dextrose (Dextrose 50% Inj) 0 ml IVP .STAT PRN; Protocol PRN Reason: Hypoglycemia Protocol Last Admin: 03/14/17 06:59 Dose: 50 ml Famotidine (Pepcid) 20 mg PO DAILY [facility] Last Admin: 03/21/17 10:27 Dose: Not Given Metronidazole (Flagyl) 500 mg in 100 mls @ 100 mls/hr IVPB Q8H [facility] Last Admin: 03/22/17 03:32 Dose: 100 mls/hr Tigecycline 50 mg/ Sodium (Chloride) 50 mls @ 100 mls/hr IVPB Q12H [facility] Last Admin: 03/22/17 00:53 Dose: 100 mls/hr Insulin Glargine (Lantus) 8 unit SC HS [facility] Last Admin: 03/21/17 22:20 Dose: Not Given Insulin Human Regular (Novolin R) 0 unit SC ACHS [facility] PRN Reason: Protocol Last Admin: 03/21/17 22:20 Dose: Not Given Lorazepam (Ativan) 0.5 mg PO HS PRN PRN Reason: Anxiety Last Admin: 03/18/17 04:34 Dose: 0.5 mg Magnesium Oxide (Mag-Ox) 400 mg PO DAILY [facility] Last Admin: 03/21/17 10:27 Dose: Not Given Ofloxacin (Ocuflox Ophth 0.3%) 0 ml OD QID [facility] Last Admin: 03/21/17 21:39 Dose: 1 drop Potassium Chloride (Potassium Chloride Oral Soln) 20 meq PO BID [facility] Last Admin: 03/21/17 17:52 Dose: 20 meq Prednisolone Acetate (Pred Forte 1% Opht Susp) 0 ml OD QID [facility] Last Admin: 03/21/17 21:40 Dose: 1 drop Pyridostigmine [place] (Mestinon Tab) 60 mg PO TID [facility] Last Admin: 03/21/17 17:52 Dose: 60 mg Timolol Maleate (Timoptic 0.5% Ophth Soln) 1 drop OD BID [facility] Last Admin: 03/21/17 17:53 Dose: 1 drop - Labs Labs: 03/22/17 06:16 03/21/17 08:16 PT 18.8 SECONDS (9.7-12.2) H D 03/21/17 07:17 INR 1.6 D 03/21/17 07:17 APTT 35 SECONDS (21-34) H D 03/21/17 07:17 - Constitutional Appears: No Acute Distress, Chronically Ill - Head Exam Head Exam: ATRAUMATIC, NORMAL INSPECTION - Eye Exam Eye Exam: EOMI, Periorbital swelling - Neck Exam Neck Exam: Normal Inspection. absent: Tenderness - Respiratory Exam Respiratory Exam: Clear to Ausculation Bilateral, NORMAL BREATHING PATTERN - Cardiovascular Exam Cardiovascular Exam: REGULAR RHYTHM, +S1 - GI/Abdominal Exam GI & Abdominal Exam: Soft. absent: Tenderness - Extremities Exam Extremities Exam: Normal Inspection. absent: Tenderness - Neurological Exam Neurological Exam: Alert, CN II-XII Intact - Skin Skin Exam: Dry, Warm Assessment and Plan (1) Myasthenia Status: Acute (2) Other secondary thrombocytopenia Status: Acute (3) Meningioma Status: Acute (4) Hypokalemia Status: Acute (5) Carbapenem-resistant bacterial infection Status: Acute (6) Myelodysplasia (myelodysplastic syndrome) Status: Acute - Assessment and Plan (Free Text) Plan: Repeat plasmapheresis today - called in orders recheck chemistries
[2017-03-22 08:54] LABS: NEUTROPHIL 85 % (50-75); REACTIVE LYMPHOCYTES 2 % (0-0); TOTAL CELLS COUNTED 100
[2017-03-22 09:01] LABS: FIBRINOGEN 141 mg/dL (200-400)
[2017-03-22 09:12] LABS: FDP INTERPRETATION POSITIVE (NEGATIVE); FDP QUANTITY >10<40 ug/mL (<10)
[2017-03-22] MEDS ORDERED: Dexamethasone 4 MG in Sodium Chloride 0.9% 50 ML IV SCH (10:00)
[2017-03-22] MEDS: Dexamethasone 4 mg/1 ml IVP SCH (11:03)
[2017-03-22] MEDS: (Novolin R) Insulin Human Regular 100 units/ml vial SC SCH ×4 (11:06→21:07)
[2017-03-22] MEDS: Potassium Chloride 20 mEq/15 ml LIQ UD PO SCH ×2 (11:11→18:10)
[2017-03-22] MEDS: Magnesium Oxide 400 mg Tab UD PO SCH (11:14)
[2017-03-22] MEDS: Ofloxacin 0.3% Ophth Soln OD SCH ×4 (11:14→21:07)
[2017-03-22] MEDS: PrednisoLONE 1% Opht Susp(5 ml) OD SCH ×4 (11:16→21:07)
--- NOTE | 2017-03-22 16:47 | RAD ---
HISTORY: chf COMPARISON: Comparison is made to 03/21/2017 FINDINGS: LUNGS: Interval levr-ll-rltwflod improvement in the lungs since the previous exam. Pulmonary vascular congestion is also noted. PLEURA: Small bilateral pleural effusions are again seen. CARDIOVASCULAR: Normal. OSSEOUS STRUCTURES: No significant abnormalities. VISUALIZED UPPER ABDOMEN: Normal. OTHER FINDINGS: Right-sided hemodialysis catheter is again seen in place. IMPRESSION: Interval mild to moderate improvement in the lungs since the previous study.
[2017-03-22] MEDS: Acetaminophen-Codeine 300/30 mg Tab PO PRN (18:10)
[2017-03-22] MEDS ORDERED: Calcium Gluconate 9.3 MEQ in Sodium Chloride 0.9% 250 ML IV ONE (21:00)
[2017-03-22] MEDS: (Lantus) Insulin Glargine, Recombinant SC SCH (21:07)
--- NOTE | 2017-03-22 21:17 | PN ---
DATE: SUBJECTIVE: The patient is alert, oriented, seen afebrile. PHYSICAL EXAMINATION: GENERAL: She is not in acute distress. VITAL SIGNS: Blood pressure 136/80, pulse 78, respirations 20, hemoglobin oxygen saturation of 97%. HEART: Regular. No gallop rhythm. LUNGS: Diminished breath sounds over the lung bases. ABDOMEN: Soft. EXTREMITIES: Legs, no significant edema. The patient remains in bed. LABORATORY DATA: Her white count is 15,400, hemoglobin is 9.3, platelet count still low at 28,000. IMPRESSION: Respiratory insufficiency, chronic obstructive pulmonary disease, sepsis, myelodysplasia, severe thrombocytopenia, anemia, diabetes mellitus. PLAN: To continue with the current medication and current measures and Hematology/Oncology followup. Abundio Silva MD MTDDagmar
[2017-03-22] MEDS ORDERED: Calcium Gluconate 4.65 mEq/10 ml Inj IVP ONE (22:00)
[2017-03-22] MEDS ORDERED: MethylPREDNISolone 40 mg Vial IVP ONE (22:00)
[2017-03-22] MEDS ORDERED: DiphenhydrAMINE 50 mg/ml Inj IVP ONE (22:00)
--- NOTE | 2017-03-22 23:13 | CP.PCM.PN ---
Subjective - Date & Time of Evaluation Date of Evaluation: 03/22/17 Time of Evaluation: 14:35 - Subjective Subjective: Patient confused and not eating. Hct 29 and platlets 21,000. Patient underwent plasmaphoresis with no complications. Objective - Vital Signs/Intake and Output Vital Signs (last 24 hours): Temp Pulse Resp BP Pulse Ox 97.7 F 78 20 136/80 97 03/22/17 16:16 03/22/17 16:16 03/22/17 16:16 03/22/17 16:16 03/22/17 16:16 Intake and Output: 03/22/17 03/23/17 18:59 06:59 Intake Total 350 Balance 350 - Medications Medications: Current Medications Acetaminophen/Codeine Phosphate (Tylenol/Codeine 300 Mg/30 Mg) 1 ea PO Q6 PRN PRN Reason: Pain, moderate (4-7) Last Admin: 03/22/17 18:10 Dose: 1 ea Albuterol Sulfate (Albuterol 0.042% Inhal Tricia (1.25mg/3ml) Ud) 1.25 mg INH RTID [facility] Last Admin: 03/22/17 19:36 Dose: Not Given Dexamethasone (Decadron Inj) 4 mg IVP DAILY [facility] Last Admin: 03/22/17 11:03 Dose: 4 mg Dextrose (Dextrose 50% Inj) 0 ml IVP .STAT PRN; Protocol PRN Reason: Hypoglycemia Protocol Last Admin: 03/14/17 06:59 Dose: 50 ml Famotidine (Pepcid) 20 mg PO DAILY [facility] Last Admin: 03/22/17 11:10 Dose: 20 mg Metronidazole (Flagyl) 500 mg in 100 mls @ 100 mls/hr IVPB Q8H [facility] Last Admin: 03/22/17 18:10 Dose: 100 mls/hr Tigecycline 50 mg/ Sodium (Chloride) 50 mls @ 100 mls/hr IVPB Q12H [facility] Last Admin: 03/22/17 12:28 Dose: 100 mls/hr Insulin Glargine (Lantus) 8 unit SC HS [facility] Last Admin: 03/22/17 21:07 Dose: Not Given Insulin Human Regular (Novolin R) 0 unit SC ACHS [facility] PRN Reason: Protocol Last Admin: 03/22/17 21:07 Dose: Not Given Lorazepam (Ativan) 0.5 mg PO HS PRN PRN Reason: Anxiety Last Admin: 03/18/17 04:34 Dose: 0.5 mg Magnesium Oxide (Mag-Ox) 400 mg PO DAILY [facility] Last Admin: 03/22/17 11:14 Dose: 400 mg Ofloxacin (Ocuflox Ophth 0.3%) 0 ml OD QID [facility] Last Admin: 03/22/17 21:07 Dose: 1 drop Potassium Chloride (Potassium Chloride Oral Soln) 20 meq PO BID [facility] Last Admin: 03/22/17 18:10 Dose: 20 meq Prednisolone Acetate (Pred Forte 1% Opht Susp) 0 ml OD QID [facility] Last Admin: 03/22/17 21:07 Dose: 1 drop Pyridostigmine [place] (Mestinon Tab) 60 mg PO TID [facility] Last Admin: 03/22/17 18:10 Dose: 60 mg Timolol Maleate (Timoptic 0.5% Ophth Soln) 1 drop OD BID [facility] Last Admin: 03/22/17 18:11 Dose: 1 drop - Labs Labs: 03/22/17 06:16 03/21/17 08:16 PT 18.8 SECONDS (9.7-12.2) H D 03/21/17 07:17 INR 1.6 D 03/21/17 07:17 APTT 35 SECONDS (21-34) H D 03/21/17 07:17 - Constitutional Appears: Chronically Ill - Head Exam Head Exam: NORMAL INSPECTION - ENT Exam ENT Exam: Mucous Membranes Dry - Neck Exam Neck Exam: Normal Inspection - Respiratory Exam Respiratory Exam: Decreased Breath Sounds - Cardiovascular Exam Cardiovascular Exam: REGULAR RHYTHM - GI/Abdominal Exam GI & Abdominal Exam: Hyperactive Bowel Sounds - Rectal Exam Rectal Exam: Deferred - Exam External exam: NORMAL EXTERNAL EXAM - Extremities Exam Extremities Exam: Pedal Edema - Back Exam Back Exam: NORMAL INSPECTION - Neurological Exam Neurological Exam: Altered - Psychiatric Exam Psychiatric exam: Depressed - Skin Skin Exam: Dry Assessment and Plan (1) Myelodysplasia (myelodysplastic syndrome) Status: Acute (2) Severe anemia Status: Acute (3) Degenerative disc disease at L5-S1 level Status: Acute (4) Osteoarthritis Status: Acute (5) Thrombocytopenia Status: Acute (6) Sepsis Status: Acute
[2017-03-23] MEDS ORDERED: Calcium Gluconate 4.65 mEq/10 ml Inj IVP ONE (00:30)
[2017-03-23] MEDS ORDERED: DiphenhydrAMINE 50 mg/ml Inj IVP ONE (00:30)
[2017-03-23] MEDS ORDERED: MethylPREDNISolone 40 mg Vial IV ONE (00:30)
[2017-03-23] MEDS: metroNIDAZOLE IV 500 mg/100 ml 500 MG/100 ML BAG IVPB SCH ×3 (03:40→17:41)
[2017-03-23] MEDS: Albuterol 0.042% Inhal Sol (1.25 mg/3 mL) UD INH SCH ×3 (07:53→20:55)
[2017-03-23] MEDS: (Novolin R) Insulin Human Regular 100 units/ml vial SC SCH ×4 (08:25→21:05)
[2017-03-23] MEDS: Potassium Chloride 20 mEq/15 ml LIQ UD PO SCH ×2 (10:13→17:31)
[2017-03-23] MEDS: Magnesium Oxide 400 mg Tab UD PO SCH (10:13)
[2017-03-23] MEDS: PrednisoLONE 1% Opht Susp(5 ml) OD SCH ×4 (10:14→21:04)
[2017-03-23] MEDS: Ofloxacin 0.3% Ophth Soln OD SCH ×4 (10:14→21:04)
[2017-03-23] MEDS: Dexamethasone 4 mg/1 ml IVP SCH (10:19)
--- NOTE | 2017-03-23 10:22 | CP.PCM.PN ---
Subjective - Date & Time of Evaluation Date of Evaluation: 03/23/17 Time of Evaluation: 10:19 - Subjective Subjective: s/p second plasmapheresis 03/22 tolerated well alert, confused chemistries stable still with thrombocytopenia plans for about 5 TPE treatments- next in AM Objective - Vital Signs/Intake and Output Vital Signs (last 24 hours): Temp Pulse Resp BP Pulse Ox 97.4 F L 78 20 130/77 96 03/23/17 07:40 03/23/17 07:40 03/23/17 07:40 03/23/17 07:40 03/23/17 07:40 Intake and Output: 03/23/17 03/23/17 06:59 18:59 Intake Total 200 Balance 200 - Medications Medications: Current Medications Acetaminophen/Codeine Phosphate (Tylenol/Codeine 300 Mg/30 Mg) 1 ea PO Q6 PRN PRN Reason: Pain, moderate (4-7) Last Admin: 03/22/17 18:10 Dose: 1 ea Albuterol Sulfate (Albuterol 0.042% Inhal Tricia (1.25mg/3ml) Ud) 1.25 mg INH RTID [facility]S [facility] Last Admin: 03/23/17 07:53 Dose: 1.25 mg Dexamethasone (Decadron Inj) 4 mg IVP DAILY [facility] Last Admin: 03/23/17 10:19 Dose: 4 mg Dextrose (Dextrose 50% Inj) 0 ml IVP .STAT PRN; Protocol PRN Reason: Hypoglycemia Protocol Last Admin: 03/14/17 06:59 Dose: 50 ml Famotidine (Pepcid) 20 mg PO DAILY [facility] Last Admin: 03/23/17 10:13 Dose: 20 mg Metronidazole (Flagyl) 500 mg in 100 mls @ 100 mls/hr IVPB Q8H [facility] Last Admin: 03/23/17 03:40 Dose: 100 mls/hr Tigecycline 50 mg/ Sodium (Chloride) 50 mls @ 100 mls/hr IVPB Q12H [facility] Last Admin: 03/22/17 23:59 Dose: 100 mls/hr Insulin Glargine (Lantus) 8 unit SC HS [facility] Last Admin: 03/22/17 21:07 Dose: Not Given Insulin Human Regular (Novolin R) 0 unit SC ACHS JOSIE PRN Reason: Protocol Last Admin: 03/23/17 08:25 Dose: 3 unit Lorazepam (Ativan) 0.5 mg PO HS PRN PRN Reason: Anxiety Last Admin: 03/18/17 04:34 Dose: 0.5 mg Magnesium Oxide (Mag-Ox) 400 mg PO DAILY [facility] B[facility]S [facility] Last Admin: 03/23/17 10:13 Dose: 400 mg Ofloxacin (Ocuflox Ophth 0.3%) 0 ml OD QID [facility] B[facility]S [facility] Last Admin: 03/23/17 10:14 Dose: 1 drop Potassium Chloride (Potassium Chloride Oral Soln) 20 meq PO BID [facility] Last Admin: 03/23/17 10:13 Dose: 20 meq Prednisolone Acetate (Pred Forte 1% Opht Susp) 0 ml OD QID [facility] B[facility]S [facility] Last Admin: 03/23/17 10:14 Dose: 1 drop Pyridostigmine [place] (Mestinon Tab) 60 mg PO TID [facility]S [facility] Last Admin: 03/23/17 10:13 Dose: 60 mg Timolol Maleate (Timoptic 0.5% Ophth Soln) 1 drop OD BID [facility] Last Admin: 03/22/17 18:11 Dose: 1 drop - Labs Labs: 03/22/17 06:16 03/21/17 08:16 PT 18.8 SECONDS (9.7-12.2) H D 03/21/17 07:17 INR 1.6 D 03/21/17 07:17 APTT 35 SECONDS (21-34) H D 03/21/17 07:17 - Constitutional Appears: No Acute Distress, Chronically Ill - Head Exam Head Exam: ATRAUMATIC, NORMAL INSPECTION - Eye Exam Eye Exam: EOMI, Normal appearance - Neck Exam Neck Exam: Normal Inspection. absent: Tenderness - Respiratory Exam Respiratory Exam: Clear to Ausculation Bilateral, NORMAL BREATHING PATTERN - Cardiovascular Exam Cardiovascular Exam: REGULAR RHYTHM, +S1 - GI/Abdominal Exam GI & Abdominal Exam: Soft. absent: Tenderness - Extremities Exam Extremities Exam: Normal Inspection. absent: Tenderness - Neurological Exam Neurological Exam: Alert, CN II-XII Intact - Skin Skin Exam: Dry, Warm Assessment and Plan (1) Myasthenia Status: Acute (2) Other secondary thrombocytopenia Status: Acute (3) Meningioma Status: Acute (4) Hypokalemia Status: Acute (5) Carbapenem-resistant bacterial infection Status: Acute (6) Myelodysplasia (myelodysplastic syndrome) Status: Acute - Assessment and Plan (Free Text) Plan: repeat TPE in AM follow up chemistries neuro f/u for myasthenia
[2017-03-23 11:34] LABS: BASO # 0.3 K/uL (0.0-0.2); BASO % 1.4 % (0.0-2.0); HEMATOCRIT 27.4 % (34.0-47.0); LYMPH # 1.5 K/uL (1.0-4.3); LYMPH % 7.7 % (20.0-40.0); MEAN CELL VOLUME 96.5 fL (81.0-99.0); MEAN CORPUSCULAR HEMOGLOBIN 29.6 pg (27.0-31.0); MEAN CORPUSCULAR HGB CONC 30.7 g/dL (33.0-37.0); MEAN PLATELET VOLUME 10.1 fL (7.2-11.7); MONO # 0.1 K/uL (0.0-0.8); MONO % 0.4 % (0.0-10.0); NRBC % 0.3 % (0.0-2.0); RED CELL DISTRIBUTION WIDTH 20.8 % (11.5-14.5); WHITE BLOOD COUNT 19.1 K/uL (4.8-10.8)
[2017-03-23 11:38] LABS: PLATELET COUNT 23 K/uL (130-400)
[2017-03-23 12:03] LABS: NEUTROPHIL 79 % (50-75); TOTAL CELLS COUNTED 100
[2017-03-23 12:05] LABS: ALB/GLOB RATIO 2.5 (1.0-2.1); ALKALINE PHOSPHATASE 100 U/L (38-126); ALT/SGPT 28 U/L (9-52); AST/SGOT 14 U/L (14-36); BILIRUBIN,TOTAL 1.4 mg/dL (0.2-1.3); BLOOD UREA NITROGEN 23 mg/dL (7-17); CALCIUM 7.9 mg/dl (8.6-10.4); CARBON DIOXIDE 19 mmol/L (22-30); CHLORIDE 113 mmol/L (98-107); GFR AFRICAN-AMERICAN > 60; GLUCOSE,RANDOM 242 mg/dL (65-105); MAGNESIUM 1.7 mg/dL (1.6-2.3); PHOSPHOROUS 2.6 mg/dL (2.5-4.5); POTASSIUM 4.9 mmol/L (3.6-5.2); SODIUM 145 mmol/L (132-148); TOTAL PROTEIN 4.9 g/dL (6.3-8.3)
[2017-03-23 12:06] LABS: REACTIVE LYMPHOCYTES 1 % (0-0)
--- NOTE | 2017-03-23 18:25 | CP.PCM.PN ---
Subjective - Date & Time of Evaluation Date of Evaluation: 03/23/17 Time of Evaluation: 07:00 - Subjective Subjective: s/p plasmapheresis afeb lethargic NAD Objective - Vital Signs/Intake and Output Vital Signs (last 24 hours): Temp Pulse Resp BP Pulse Ox 98.7 F 113 H 20 131/79 94 L 03/23/17 17:00 03/23/17 17:00 03/23/17 17:00 03/23/17 17:00 03/23/17 17:00 Intake and Output: 03/23/17 03/23/17 06:59 18:59 Intake Total 200 Balance 200 - Medications Medications: Current Medications Acetaminophen/Codeine Phosphate (Tylenol/Codeine 300 Mg/30 Mg) 1 ea PO Q6 PRN PRN Reason: Pain, moderate (4-7) Last Admin: 03/22/17 18:10 Dose: 1 ea Albuterol Sulfate (Albuterol 0.042% Inhal Tricia (1.25mg/3ml) Ud) 1.25 mg INH RTID [facility] Last Admin: 03/23/17 14:08 Dose: Not Given Dexamethasone (Decadron Inj) 4 mg IVP DAILY [facility] Last Admin: 03/23/17 10:19 Dose: 4 mg Dextrose (Dextrose 50% Inj) 0 ml IVP .STAT PRN; Protocol PRN Reason: Hypoglycemia Protocol Last Admin: 03/14/17 06:59 Dose: 50 ml Famotidine (Pepcid) 20 mg PO DAILY [facility] Last Admin: 03/23/17 10:13 Dose: 20 mg Metronidazole (Flagyl) 500 mg in 100 mls @ 100 mls/hr IVPB Q8H [facility] Last Admin: 03/23/17 17:41 Dose: 100 mls/hr Tigecycline 50 mg/ Sodium (Chloride) 50 mls @ 100 mls/hr IVPB Q12H [facility] Last Admin: 03/23/17 11:59 Dose: 100 mls/hr Insulin Glargine (Lantus) 8 unit SC HS [facility] Last Admin: 03/22/17 21:07 Dose: Not Given Insulin Human Regular (Novolin R) 0 unit SC ACHS [facility] PRN Reason: Protocol Last Admin: 03/23/17 17:29 Dose: 3 unit Lorazepam (Ativan) 0.5 mg PO HS PRN PRN Reason: Anxiety Last Admin: 03/18/17 04:34 Dose: 0.5 mg Magnesium Oxide (Mag-Ox) 400 mg PO DAILY [facility] Last Admin: 03/23/17 10:13 Dose: 400 mg Ofloxacin (Ocuflox Ophth 0.3%) 0 ml OD QID [facility] Last Admin: 03/23/17 17:36 Dose: 1 drop Potassium Chloride (Potassium Chloride Oral Soln) 20 meq PO BID [facility] Last Admin: 03/23/17 17:31 Dose: 20 meq Prednisolone Acetate (Pred Forte 1% Opht Susp) 0 ml OD QID [facility] Last Admin: 03/23/17 17:35 Dose: 1 drop Pyridostigmine [place] (Mestinon Tab) 60 mg PO TID [facility] Last Admin: 03/23/17 17:31 Dose: 60 mg Timolol Maleate (Timoptic 0.5% Ophth Soln) 1 drop OD BID [facility] Last Admin: 03/23/17 17:35 Dose: 1 drop - Labs Labs: 03/23/17 11:14 03/23/17 11:14 PT 18.8 SECONDS (9.7-12.2) H D 03/21/17 07:17 INR 1.6 D 03/21/17 07:17 APTT 35 SECONDS (21-34) H D 03/21/17 07:17 - Constitutional Appears: Non-toxic, Chronically Ill - Head Exam Head Exam: NORMOCEPHALIC - Eye Exam Eye Exam: absent: Scleral icterus - ENT Exam ENT Exam: Mucous Membranes Dry - Neck Exam Neck Exam: absent: Lymphadenopathy - Respiratory Exam Respiratory Exam: Decreased Breath Sounds - Cardiovascular Exam Cardiovascular Exam: REGULAR RHYTHM - GI/Abdominal Exam GI & Abdominal Exam: Distended, Soft - Rectal Exam Rectal Exam: Deferred Assessment and Plan (1) Myelodysplasia (myelodysplastic syndrome) Status: Acute (2) Severe anemia Status: Acute (3) Acute on chronic diastolic (congestive) heart failure Status: Acute (4) Anemia Status: Acute (5) Degenerative disc disease at L5-S1 level Status: Acute (6) Dehydration Status: Acute (7) Diabetes mellitus type 2 in obese Status: Acute (8) Carbapenem-resistant bacterial infection Status: Acute (9) Carbapenem-resistant bacterial infection Status: Acute
[2017-03-23] MEDS: (Lantus) Insulin Glargine, Recombinant SC SCH (22:26)
--- NOTE | 2017-03-23 22:26 | CP.PCM.PN ---
Subjective - Date & Time of Evaluation Date of Evaluation: 03/23/17 Time of Evaluation: 15:45 - Subjective Subjective: Patient is less confused today. She underwent another plasmaphoresis. Hct 27 , platlets 21,000 and glucose 308. Continue supportive measures. Objective - Vital Signs/Intake and Output Vital Signs (last 24 hours): Temp Pulse Resp BP Pulse Ox 98.7 F 113 H 20 131/79 94 L 03/23/17 17:00 03/23/17 17:00 03/23/17 17:00 03/23/17 17:00 03/23/17 17:00 - Medications Medications: Current Medications Acetaminophen/Codeine Phosphate (Tylenol/Codeine 300 Mg/30 Mg) 1 ea PO Q6 PRN PRN Reason: Pain, moderate (4-7) Last Admin: 03/22/17 18:10 Dose: 1 ea Albuterol Sulfate (Albuterol 0.042% Inhal Tricia (1.25mg/3ml) Ud) 1.25 mg INH RTID [facility] Last Admin: 03/23/17 20:55 Dose: Not Given Dexamethasone (Decadron Inj) 4 mg IVP DAILY [facility] Last Admin: 03/23/17 10:19 Dose: 4 mg Dextrose (Dextrose 50% Inj) 0 ml IVP .STAT PRN; Protocol PRN Reason: Hypoglycemia Protocol Last Admin: 03/14/17 06:59 Dose: 50 ml Famotidine (Pepcid) 20 mg PO DAILY [facility] Last Admin: 03/23/17 10:13 Dose: 20 mg Metronidazole (Flagyl) 500 mg in 100 mls @ 100 mls/hr IVPB Q8H [facility] Last Admin: 03/23/17 17:41 Dose: 100 mls/hr Tigecycline 50 mg/ Sodium (Chloride) 50 mls @ 100 mls/hr IVPB Q12H [facility] Last Admin: 03/23/17 11:59 Dose: 100 mls/hr Insulin Glargine (Lantus) 8 unit SC HS [facility] Last Admin: 03/22/17 21:07 Dose: Not Given Insulin Human Regular (Novolin R) 0 unit SC ACHS [facility] PRN Reason: Protocol Last Admin: 03/23/17 21:05 Dose: Not Given Lorazepam (Ativan) 0.5 mg PO HS PRN PRN Reason: Anxiety Last Admin: 03/18/17 04:34 Dose: 0.5 mg Magnesium Oxide (Mag-Ox) 400 mg PO DAILY [facility] Last Admin: 03/23/17 10:13 Dose: 400 mg Ofloxacin (Ocuflox Ophth 0.3%) 0 ml OD QID [facility] Last Admin: 03/23/17 21:04 Dose: 1 drop Potassium Chloride (Potassium Chloride Oral Soln) 20 meq PO BID [facility] Last Admin: 03/23/17 17:31 Dose: 20 meq Prednisolone Acetate (Pred Forte 1% Opht Susp) 0 ml OD QID [facility] Last Admin: 03/23/17 21:04 Dose: 1 drop Pyridostigmine [place] (Mestinon Tab) 60 mg PO TID [facility] Last Admin: 03/23/17 17:31 Dose: 60 mg Timolol Maleate (Timoptic 0.5% Ophth Soln) 1 drop OD BID [facility] Last Admin: 03/23/17 17:35 Dose: 1 drop - Labs Labs: 03/23/17 11:14 03/23/17 11:14 PT 18.8 SECONDS (9.7-12.2) H D 03/21/17 07:17 INR 1.6 D 03/21/17 07:17 APTT 35 SECONDS (21-34) H D 03/21/17 07:17 - Constitutional Appears: Chronically Ill - Head Exam Head Exam: NORMOCEPHALIC - Eye Exam Eye Exam: Normal appearance - Neck Exam Neck Exam: Normal Inspection - Respiratory Exam Respiratory Exam: Decreased Breath Sounds - Cardiovascular Exam Cardiovascular Exam: REGULAR RHYTHM - GI/Abdominal Exam GI & Abdominal Exam: Hyperactive Bowel Sounds - Rectal Exam Rectal Exam: Deferred - Exam External exam: NORMAL EXTERNAL EXAM - Extremities Exam Extremities Exam: Tenderness - Back Exam Back Exam: NORMAL INSPECTION - Neurological Exam Neurological Exam: Awake - Psychiatric Exam Psychiatric exam: Depressed - Skin Skin Exam: Dry Assessment and Plan (1) Myelodysplasia (myelodysplastic syndrome) Status: Acute (2) Severe anemia Status: Acute (3) Degenerative disc disease at L5-S1 level Status: Acute (4) Osteoarthritis Status: Acute (5) Thrombocytopenia Status: Acute (6) Sepsis Status: Acute (7) Carbapenem-resistant bacterial infection Status: Acute (8) Meningioma Status: Acute (9) Myasthenia Status: Acute
[2017-03-24] MEDS: metroNIDAZOLE IV 500 mg/100 ml 500 MG/100 ML BAG IVPB SCH ×3 (02:10→17:25)
[2017-03-24] MEDS: Albuterol 0.042% Inhal Sol (1.25 mg/3 mL) UD INH SCH ×3 (07:40→19:17)
[2017-03-24] MEDS: (Novolin R) Insulin Human Regular 100 units/ml vial SC SCH ×4 (08:25→22:01)
[2017-03-24] MEDS ORDERED: MethylPREDNISolone 40 mg Vial IV ONE (08:45)
[2017-03-24] MEDS ORDERED: DiphenhydrAMINE 50 mg/ml Inj IVP ONE ×2 (08:45→10:00)
[2017-03-24] MEDS: PrednisoLONE 1% Opht Susp(5 ml) OD SCH ×4 (09:20→22:01)
[2017-03-24] MEDS ORDERED: Calcium Gluconate 9.3 MEQ in Sodium Chloride 0.9% 250 ML IV ONE (10:00)
[2017-03-24] MEDS: Ofloxacin 0.3% Ophth Soln OD SCH ×4 (10:37→22:01)
--- NOTE | 2017-03-24 11:24 | CP.PCM.PN ---
Subjective - Date & Time of Evaluation Date of Evaluation: 03/24/17 Time of Evaluation: 11:21 - Subjective Subjective: Podiatry Progress Note- Dr. Thompson: 76 yo patient seen at bedside today for f/u of chronic right heel ulceration. Seen resting in bed with offloading boots in place. Patient is in NAD and is AAOx3. Recently diagnosed with meningioma and myasthenia gravis. Patient denies any pain or discomfort to b/l lower extremities. Patient denies of any other complains at this time. Objective - Vital Signs/Intake and Output Vital Signs (last 24 hours): Temp Pulse Resp BP Pulse Ox 98 F 80 20 127/60 96 03/24/17 08:00 03/24/17 08:00 03/24/17 08:00 03/24/17 08:00 03/24/17 08:00 Intake and Output: 03/24/17 03/24/17 06:59 18:59 Intake Total 250 Output Total 1 Balance 249 - Medications Medications: Current Medications Acetaminophen/Codeine Phosphate (Tylenol/Codeine 300 Mg/30 Mg) 1 ea PO Q6 PRN PRN Reason: Pain, moderate (4-7) Last Admin: 03/22/17 18:10 Dose: 1 ea Albuterol Sulfate (Albuterol 0.042% Inhal Tricia (1.25mg/3ml) Ud) 1.25 mg INH RTID [facility] Last Admin: 03/24/17 07:40 Dose: Not Given Dexamethasone (Decadron Inj) 4 mg IVP DAILY [facility] Last Admin: 03/23/17 10:19 Dose: 4 mg Dextrose (Dextrose 50% Inj) 0 ml IVP .STAT PRN; Protocol PRN Reason: Hypoglycemia Protocol Last Admin: 03/14/17 06:59 Dose: 50 ml Famotidine (Pepcid) 20 mg PO DAILY [facility] Last Admin: 03/23/17 10:13 Dose: 20 mg Metronidazole (Flagyl) 500 mg in 100 mls @ 100 mls/hr IVPB Q8H [facility] Last Admin: 03/24/17 02:10 Dose: 100 mls/hr Tigecycline 50 mg/ Sodium (Chloride) 50 mls @ 100 mls/hr IVPB Q12H [facility] Last Admin: 03/24/17 00:15 Dose: 100 mls/hr Insulin Glargine (Lantus) 8 unit SC [facility] Last Admin: 03/23/17 22:26 Dose: 8 units Insulin Human Regular (Novolin R) 0 unit SC ACHS [facility] PRN Reason: Protocol Last Admin: 03/24/17 08:25 Dose: 4 unit Lorazepam (Ativan) 0.5 mg PO HS PRN PRN Reason: Anxiety Last Admin: 03/18/17 04:34 Dose: 0.5 mg Magnesium Oxide (Mag-Ox) 400 mg PO DAILY [facility] Last Admin: 03/23/17 10:13 Dose: 400 mg Ofloxacin (Ocuflox Ophth 0.3%) 0 ml OD QID [facility] Last Admin: 03/23/17 21:04 Dose: 1 drop Potassium Chloride (Potassium Chloride Oral Soln) 20 meq PO BID [facility] Last Admin: 03/23/17 17:31 Dose: 20 meq Prednisolone Acetate (Pred Forte 1% Opht Susp) 0 ml OD QID [facility] Last Admin: 03/24/17 09:20 Dose: 1 drop Pyridostigmine [place] (Mestinon Tab) 60 mg PO TID [facility] Last Admin: 03/23/17 17:31 Dose: 60 mg Timolol Maleate (Timoptic 0.5% Ophth Soln) 1 drop OD BID [facility] Last Admin: 03/23/17 17:35 Dose: 1 drop - Labs Labs: 03/23/17 11:14 03/23/17 11:14 PT 18.8 SECONDS (9.7-12.2) H D 03/21/17 07:17 INR 1.6 D 03/21/17 07:17 APTT 35 SECONDS (21-34) H D 03/21/17 07:17 - Constitutional Appears: Well, Non-toxic, No Acute Distress - Extremities Exam Additional comments: BL lower ext exam: VASC- pedal pulses faintly palpable, cft >4 sec to all digits, chronic lymphadema DERM- right heel ulcer resolved, left heel is intact with no lesions NEURO- pedal sensation somewhat diminished ORTHO- slight tenderness to palp bl heels - Neurological Exam Neurological Exam: Alert, Awake, Oriented x3 - Psychiatric Exam Psychiatric exam: Normal Affect, Normal Mood Assessment and Plan - Assessment and Plan (Free Text) Assessment: 76 yo female patient w/ chronic lymphadema to lower extremities, resolved right foot ulcer Plan: Pt S&E at bedside Plan discussed with Dr. Thompson Optifoam applied to bilateral heel c/w offloading heel boots stable per podiatry will monitor
[2017-03-24] MEDS: Dexamethasone 4 mg/1 ml IVP SCH (12:32)
[2017-03-24] MEDS: Potassium Chloride 20 mEq/15 ml LIQ UD PO SCH ×2 (12:34→17:24)
[2017-03-24] MEDS: Magnesium Oxide 400 mg Tab UD PO SCH (14:21)
[2017-03-24] MEDS: (Lantus) Insulin Glargine, Recombinant SC SCH (22:00)
--- NOTE | 2017-03-24 23:06 | CP.PCM.PN ---
Subjective - Date & Time of Evaluation Date of Evaluation: 03/24/17 Time of Evaluation: 16:35 - Subjective Subjective: Patient still confused. Denies any pain. She was seen by Dr Thompson. Will repeat labs in AM. Objective - Vital Signs/Intake and Output Vital Signs (last 24 hours): Temp Pulse Resp BP Pulse Ox 97.7 F 72 20 125/67 95 03/24/17 15:48 03/24/17 15:48 03/24/17 15:48 03/24/17 15:48 03/24/17 15:48 Intake and Output: 03/24/17 03/25/17 18:59 06:59 Intake Total 350 Balance 350 - Medications Medications: Current Medications Acetaminophen/Codeine Phosphate (Tylenol/Codeine 300 Mg/30 Mg) 1 ea PO Q6 PRN PRN Reason: Pain, moderate (4-7) Last Admin: 03/22/17 18:10 Dose: 1 ea Albuterol Sulfate (Albuterol 0.042% Inhal Tricia (1.25mg/3ml) Ud) 1.25 mg INH RTID [facility] Last Admin: 03/24/17 19:17 Dose: 1.25 mg Dexamethasone (Decadron Inj) 4 mg IVP DAILY [facility] Last Admin: 03/24/17 12:32 Dose: 4 mg Dextrose (Dextrose 50% Inj) 0 ml IVP .STAT PRN; Protocol PRN Reason: Hypoglycemia Protocol Last Admin: 03/14/17 06:59 Dose: 50 ml Famotidine (Pepcid) 20 mg PO DAILY [facility] Last Admin: 03/24/17 12:35 Dose: 20 mg Metronidazole (Flagyl) 500 mg in 100 mls @ 100 mls/hr IVPB Q8H [facility] Last Admin: 03/24/17 17:25 Dose: 100 mls/hr Tigecycline 50 mg/ Sodium (Chloride) 50 mls @ 100 mls/hr IVPB Q12H [facility] Last Admin: 03/24/17 12:39 Dose: 100 mls/hr Insulin Glargine (Lantus) 8 unit SC HS [facility] Last Admin: 03/24/17 22:00 Dose: 8 units Insulin Human Regular (Novolin R) 0 unit SC ACHS [facility] PRN Reason: Protocol Last Admin: 03/24/17 22:01 Dose: Not Given Lorazepam (Ativan) 0.5 mg PO HS PRN PRN Reason: Anxiety Last Admin: 03/18/17 04:34 Dose: 0.5 mg Magnesium Oxide (Mag-Ox) 400 mg PO DAILY [facility] Last Admin: 03/24/17 14:21 Dose: 400 mg Ofloxacin (Ocuflox Ophth 0.3%) 0 ml OD QID [facility] Last Admin: 03/24/17 22:01 Dose: 1 drop Potassium Chloride (Potassium Chloride Oral Soln) 20 meq PO BID [facility] Last Admin: 03/24/17 17:24 Dose: 20 meq Prednisolone Acetate (Pred Forte 1% Opht Susp) 0 ml OD QID [facility] Last Admin: 03/24/17 22:01 Dose: 1 drop Pyridostigmine [place] (Mestinon Tab) 60 mg PO TID [facility] Last Admin: 03/24/17 17:26 Dose: 60 mg Timolol Maleate (Timoptic 0.5% Ophth Soln) 1 drop OD BID [facility] Last Admin: 03/24/17 17:23 Dose: 1 drop - Labs Labs: 03/23/17 11:14 03/23/17 11:14 PT 18.8 SECONDS (9.7-12.2) H D 03/21/17 07:17 INR 1.6 D 03/21/17 07:17 APTT 35 SECONDS (21-34) H D 03/21/17 07:17 - Constitutional Appears: Chronically Ill - Head Exam Head Exam: NORMOCEPHALIC - ENT Exam ENT Exam: Normal Oropharynx - Neck Exam Neck Exam: Normal Inspection - Respiratory Exam Respiratory Exam: Decreased Breath Sounds - Cardiovascular Exam Cardiovascular Exam: REGULAR RHYTHM - GI/Abdominal Exam GI & Abdominal Exam: Hyperactive Bowel Sounds - Rectal Exam Rectal Exam: Deferred - Exam External exam: NORMAL EXTERNAL EXAM - Extremities Exam Extremities Exam: Tenderness - Back Exam Back Exam: NORMAL INSPECTION - Neurological Exam Neurological Exam: Altered - Psychiatric Exam Psychiatric exam: Depressed - Skin Skin Exam: Dry Assessment and Plan (1) Myelodysplasia (myelodysplastic syndrome) Status: Acute (2) Severe anemia Status: Acute (3) Degenerative disc disease at L5-S1 level Status: Acute (4) Osteoarthritis Status: Acute (5) Thrombocytopenia Status: Acute (6) Sepsis Status: Acute (7) Carbapenem-resistant bacterial infection Status: Acute (8) Meningioma Status: Acute (9) Myasthenia Status: Acute
[2017-03-25] MEDS: metroNIDAZOLE IV 500 mg/100 ml 500 MG/100 ML BAG IVPB SCH ×3 (02:19→18:08)
[2017-03-25] MEDS: Albuterol 0.042% Inhal Sol (1.25 mg/3 mL) UD INH SCH ×2 (08:05→13:24)
[2017-03-25] MEDS: (Novolin R) Insulin Human Regular 100 units/ml vial SC SCH ×4 (08:35→21:34)
[2017-03-25] MEDS: Magnesium Oxide 400 mg Tab UD PO SCH (10:33)
[2017-03-25] MEDS: Potassium Chloride 20 mEq/15 ml LIQ UD PO SCH ×2 (10:33→18:03)
[2017-03-25] MEDS: Dexamethasone 4 mg/1 ml IVP SCH (10:33)
[2017-03-25] MEDS: Ofloxacin 0.3% Ophth Soln OD SCH ×4 (10:38→21:34)
[2017-03-25] MEDS: PrednisoLONE 1% Opht Susp(5 ml) OD SCH ×4 (10:44→21:34)
[2017-03-25 12:57] LABS: HEMATOCRIT 25.1 % (34.0-47.0); LYMPH # 2.4 K/uL (1.0-4.3); LYMPH % 10.1 % (20.0-40.0); MEAN CELL VOLUME 96.6 fL (81.0-99.0); MEAN CORPUSCULAR HEMOGLOBIN 29.7 pg (27.0-31.0); MEAN CORPUSCULAR HGB CONC 30.8 g/dL (33.0-37.0); MEAN PLATELET VOLUME 4.5 fL (7.2-11.7); MONO # 2.8 K/uL (0.0-0.8); MONO % 11.9 % (0.0-10.0); NRBC % 0.1 % (0.0-2.0); RED CELL DISTRIBUTION WIDTH 22.1 % (11.5-14.5); WHITE BLOOD COUNT 23.4 K/uL (4.8-10.8)
--- NOTE | 2017-03-25 13:21 | CP.PCM.PN ---
Subjective - Date & Time of Evaluation Date of Evaluation: 03/25/17 Time of Evaluation: 13:17 - Subjective Subjective: Podiatry Progress Note- Dr. Thompson: 76 yo patient seen at bedside today for f/u of chronic right heel ulceration. Seen resting in bed with offloading boots in place. Patient is in NAD and is AAOx3. Recently diagnosed with meningioma and myasthenia gravis. Patient denies any pain or discomfort to b/l lower extremities and states that she has pain in her legs when moved around to change dressing. Patient denies of any other complains at this time. Objective - Vital Signs/Intake and Output Vital Signs (last 24 hours): Temp Pulse Resp BP Pulse Ox 97.7 F 67 20 156/84 H 100 03/25/17 07:41 03/25/17 07:41 03/25/17 07:41 03/25/17 07:41 03/25/17 07:41 Intake and Output: 03/25/17 03/25/17 06:59 18:59 Intake Total 320 Output Total 1 Balance 319 - Medications Medications: Current Medications Acetaminophen/Codeine Phosphate (Tylenol/Codeine 300 Mg/30 Mg) 1 ea PO Q6 PRN PRN Reason: Pain, moderate (4-7) Last Admin: 03/22/17 18:10 Dose: 1 ea Albuterol Sulfate (Albuterol 0.042% Inhal Tricia (1.25mg/3ml) Ud) 1.25 mg INH RTID [facility] Last Admin: 03/25/17 08:05 Dose: Not Given Dexamethasone (Decadron Inj) 4 mg IVP DAILY [facility] Last Admin: 03/25/17 10:33 Dose: 4 mg Dextrose (Dextrose 50% Inj) 0 ml IVP .STAT PRN; Protocol PRN Reason: Hypoglycemia Protocol Last Admin: 03/14/17 06:59 Dose: 50 ml Famotidine (Pepcid) 20 mg PO DAILY [facility] Last Admin: 03/25/17 10:33 Dose: 20 mg Metronidazole (Flagyl) 500 mg in 100 mls @ 100 mls/hr IVPB Q8H [facility] Last Admin: 03/25/17 10:37 Dose: 100 mls/hr Tigecycline 50 mg/ Sodium (Chloride) 50 mls @ 100 mls/hr IVPB Q12H [facility] Last Admin: 03/25/17 11:53 Dose: 100 mls/hr Insulin Glargine (Lantus) 8 unit SC HS [facility] Last Admin: 03/24/17 22:00 Dose: 8 units Insulin Human Regular (Novolin R) 0 unit SC ACHS [facility] PRN Reason: Protocol Last Admin: 03/25/17 11:51 Dose: 4 unit Lorazepam (Ativan) 0.5 mg PO HS PRN PRN Reason: Anxiety Last Admin: 03/18/17 04:34 Dose: 0.5 mg Magnesium Oxide (Mag-Ox) 400 mg PO DAILY [facility] Last Admin: 03/25/17 10:33 Dose: 400 mg Ofloxacin (Ocuflox Ophth 0.3%) 0 ml OD QID [facility] Last Admin: 03/25/17 10:38 Dose: 1 drop Potassium Chloride (Potassium Chloride Oral Soln) 20 meq PO BID [facility] Last Admin: 03/25/17 10:33 Dose: 20 meq Prednisolone Acetate (Pred Forte 1% Opht Susp) 0 ml OD QID [facility] Last Admin: 03/25/17 10:44 Dose: 1 drop Pyridostigmine [place] (Mestinon Tab) 60 mg PO TID [facility] Last Admin: 03/25/17 10:33 Dose: 60 mg Timolol Maleate (Timoptic 0.5% Ophth Soln) 1 drop OD BID [facility] Last Admin: 03/25/17 10:48 Dose: 1 drop - Labs Labs: 03/25/17 12:45 03/23/17 11:14 PT 18.8 SECONDS (9.7-12.2) H D 03/21/17 07:17 INR 1.6 D 03/21/17 07:17 APTT 35 SECONDS (21-34) H D 03/21/17 07:17 - Constitutional Appears: Well, Non-toxic, No Acute Distress - Extremities Exam Extremities Exam: absent: Calf Tenderness Additional comments: BL lower ext exam: VASC- pedal pulses faintly palpable, cft >4 sec to all digits, chronic lymphadema DERM: Optifoam are intact bilaterally NEURO- pedal sensation somewhat diminished ORTHO- slight tenderness to palp bl heels - Neurological Exam Neurological Exam: Alert, Awake, Oriented x3 - Psychiatric Exam Psychiatric exam: Normal Affect, Normal Mood Assessment and Plan - Assessment and Plan (Free Text) Assessment: 76 yo female patient w/ chronic lymphadema to lower extremities, resolved right foot ulcer Plan: Patient seen and evaluated at bedside Plan discussed with Dr. Donna Francois intact to bilateral heels c/w offloading heel boots stable per podiatry will monitor
--- NOTE | 2017-03-25 13:22 | PN ---
NEUROLOGICAL PROBLEM: Myasthenia gravis, on plasmapheresis 06/04. PHYSICAL EXAMINATION: VITAL SIGNS: Blood pressure 156/84, mean arterial pressure of 108, respiratory rate 16, temperature afebrile. NECK: Supple. GENERAL: The patient is arousable, but she is lethargic. Speech is intact. HEENT: Right eye unchanged with laceration and ecchymosis over the right lower lid. EXTREMITIES: Examination of the muscle strength is unchanged. Deep tendon reflexes and sensory exam, these are all unchanged compared with my previous exam. Continue plasmapheresis as recommended. The patient can continue Mestinon for now. Following plasmapheresis, the patient maybe benefited on IVIG that I would put order in place following plasma change. Continue present physical therapy and DVT prophylaxis. Javad Cota MD
--- NOTE | 2017-03-25 17:13 | CP.PCM.PN ---
Subjective - Date & Time of Evaluation Date of Evaluation: 03/25/17 Time of Evaluation: 08:00 - Subjective Subjective: arousable nad denies fever chills iv rx in progress no new positive cultures Objective - Vital Signs/Intake and Output Vital Signs (last 24 hours): Temp Pulse Resp BP Pulse Ox 97.2 F L 69 20 142/85 100 03/25/17 15:00 03/25/17 15:00 03/25/17 15:00 03/25/17 15:00 03/25/17 15:00 Intake and Output: 03/25/17 03/25/17 06:59 18:59 Intake Total 320 400 Output Total 1 0 Balance 319 400 - Medications Medications: Current Medications Acetaminophen/Codeine Phosphate (Tylenol/Codeine 300 Mg/30 Mg) 1 ea PO Q6 PRN PRN Reason: Pain, moderate (4-7) Last Admin: 03/22/17 18:10 Dose: 1 ea Dexamethasone (Decadron Inj) 4 mg IVP DAILY [facility] Last Admin: 03/25/17 10:33 Dose: 4 mg Dextrose (Dextrose 50% Inj) 0 ml IVP .STAT PRN; Protocol PRN Reason: Hypoglycemia Protocol Last Admin: 03/14/17 06:59 Dose: 50 ml Famotidine (Pepcid) 20 mg PO DAILY [facility] Last Admin: 03/25/17 10:33 Dose: 20 mg Metronidazole (Flagyl) 500 mg in 100 mls @ 100 mls/hr IVPB Q8H [facility] Last Admin: 03/25/17 10:37 Dose: 100 mls/hr Tigecycline 50 mg/ Sodium (Chloride) 50 mls @ 100 mls/hr IVPB Q12H [facility] Last Admin: 03/25/17 11:53 Dose: 100 mls/hr Insulin Glargine (Lantus) 8 unit SC HS [facility] Last Admin: 03/24/17 22:00 Dose: 8 units Insulin Human Regular (Novolin R) 0 unit SC ACHS [facility] PRN Reason: Protocol Last Admin: 03/25/17 11:51 Dose: 4 unit Lorazepam (Ativan) 0.5 mg PO HS PRN PRN Reason: Anxiety Last Admin: 03/18/17 04:34 Dose: 0.5 mg Magnesium Oxide (Mag-Ox) 400 mg PO DAILY [facility] Last Admin: 03/25/17 10:33 Dose: 400 mg Ofloxacin (Ocuflox Ophth 0.3%) 0 ml OD QID [facility] Last Admin: 03/25/17 14:25 Dose: 1 drop Potassium Chloride (Potassium Chloride Oral Soln) 20 meq PO BID [facility] Last Admin: 03/25/17 10:33 Dose: 20 meq Prednisolone Acetate (Pred Forte 1% Opht Susp) 0 ml OD QID [facility] Last Admin: 03/25/17 14:32 Dose: 1 drop Pyridostigmine [place] (Mestinon Tab) 60 mg PO TID [facility] Last Admin: 03/25/17 14:33 Dose: 60 mg Timolol Maleate (Timoptic 0.5% Ophth Soln) 1 drop OD BID [facility] Last Admin: 03/25/17 10:48 Dose: 1 drop - Labs Labs: 03/25/17 12:45 03/23/17 11:14 PT 18.8 SECONDS (9.7-12.2) H D 03/21/17 07:17 INR 1.6 D 03/21/17 07:17 APTT 35 SECONDS (21-34) H D 03/21/17 07:17 - Constitutional Appears: Non-toxic, Chronically Ill - Head Exam Head Exam: NORMOCEPHALIC - Eye Exam Eye Exam: PERRL. absent: Scleral icterus - ENT Exam ENT Exam: Mucous Membranes Dry - Neck Exam Neck Exam: absent: Lymphadenopathy - Respiratory Exam Respiratory Exam: Decreased Breath Sounds - Cardiovascular Exam Cardiovascular Exam: REGULAR RHYTHM - GI/Abdominal Exam GI & Abdominal Exam: Distended, Soft - Rectal Exam Rectal Exam: Deferred - Exam Exam: NORMAL INSPECTION Assessment and Plan (1) Myelodysplasia (myelodysplastic syndrome) Status: Acute (2) Severe anemia Status: Acute (3) Acute on chronic diastolic (congestive) heart failure Status: Acute (4) Anemia Status: Acute (5) Degenerative disc disease at L5-S1 level Status: Acute (6) Dehydration Status: Acute (7) Diabetes mellitus type 2 in obese Status: Acute (8) Carbapenem-resistant bacterial infection Status: Acute (9) Carbapenem-resistant bacterial infection Status: Acute
--- NOTE | 2017-03-25 19:58 | CP.PCM.PN ---
Subjective - Date & Time of Evaluation Date of Evaluation: 03/25/17 Time of Evaluation: 17:05 - Subjective Subjective: Patient still mildly confused but denies pain. Platlets !5,000. [place] for hematology evaluation. May need to start procret again. Objective - Vital Signs/Intake and Output Vital Signs (last 24 hours): Temp Pulse Resp BP Pulse Ox 97.2 F L 69 20 142/85 100 03/25/17 15:00 03/25/17 15:00 03/25/17 15:00 03/25/17 15:00 03/25/17 15:00 Intake and Output: 03/25/17 03/26/17 18:59 06:59 Intake Total 400 Output Total 0 Balance 400 - Medications Medications: Current Medications Acetaminophen/Codeine Phosphate (Tylenol/Codeine 300 Mg/30 Mg) 1 ea PO Q6 PRN PRN Reason: Pain, moderate (4-7) Last Admin: 03/22/17 18:10 Dose: 1 ea Dexamethasone (Decadron Inj) 4 mg IVP DAILY [facility] Last Admin: 03/25/17 10:33 Dose: 4 mg Dextrose (Dextrose 50% Inj) 0 ml IVP .STAT PRN; Protocol PRN Reason: Hypoglycemia Protocol Last Admin: 03/14/17 06:59 Dose: 50 ml Famotidine (Pepcid) 20 mg PO DAILY [facility] Last Admin: 03/25/17 10:33 Dose: 20 mg Metronidazole (Flagyl) 500 mg in 100 mls @ 100 mls/hr IVPB Q8H [facility] Last Admin: 03/25/17 18:08 Dose: 100 mls/hr Tigecycline 50 mg/ Sodium (Chloride) 50 mls @ 100 mls/hr IVPB Q12H [facility] Last Admin: 03/25/17 11:53 Dose: 100 mls/hr Insulin Glargine (Lantus) 8 unit SC HS [facility] Last Admin: 03/24/17 22:00 Dose: 8 units Insulin Human Regular (Novolin R) 0 unit SC ACHS [facility] PRN Reason: Protocol Last Admin: 03/25/17 16:30 Dose: 1 unit Lorazepam (Ativan) 0.5 mg PO HS PRN PRN Reason: Anxiety Last Admin: 03/18/17 04:34 Dose: 0.5 mg Magnesium Oxide (Mag-Ox) 400 mg PO DAILY [facility] Last Admin: 03/25/17 10:33 Dose: 400 mg Ofloxacin (Ocuflox Ophth 0.3%) 0 ml OD QID [facility] Last Admin: 03/25/17 18:07 Dose: 1 drop Potassium Chloride (Potassium Chloride Oral Soln) 20 meq PO BID [facility] Last Admin: 03/25/17 18:03 Dose: 20 meq Prednisolone Acetate (Pred Forte 1% Opht Susp) 0 ml OD QID [facility] Last Admin: 03/25/17 18:07 Dose: 1 drop Pyridostigmine [place] (Mestinon Tab) 60 mg PO TID [facility] Last Admin: 03/25/17 18:03 Dose: 60 mg Timolol Maleate (Timoptic 0.5% Ophth Soln) 1 drop OD BID [facility] Last Admin: 03/25/17 18:07 Dose: 1 drop - Labs Labs: 03/25/17 12:45 03/23/17 11:14 PT 18.8 SECONDS (9.7-12.2) H D 03/21/17 07:17 INR 1.6 D 03/21/17 07:17 APTT 35 SECONDS (21-34) H D 03/21/17 07:17 - Constitutional Appears: Chronically Ill - Head Exam Head Exam: NORMOCEPHALIC - ENT Exam ENT Exam: Normal Exam - Neck Exam Neck Exam: Normal Inspection - Respiratory Exam Respiratory Exam: Decreased Breath Sounds - Cardiovascular Exam Cardiovascular Exam: REGULAR RHYTHM - GI/Abdominal Exam GI & Abdominal Exam: Hyperactive Bowel Sounds - Rectal Exam Rectal Exam: Deferred - Exam External exam: NORMAL EXTERNAL EXAM - Extremities Exam Extremities Exam: Tenderness - Back Exam Back Exam: NORMAL INSPECTION - Neurological Exam Neurological Exam: Altered - Psychiatric Exam Psychiatric exam: Depressed - Skin Skin Exam: Dry Assessment and Plan (1) Myelodysplasia (myelodysplastic syndrome) Status: Acute (2) Severe anemia Status: Acute (3) Degenerative disc disease at L5-S1 level Status: Acute (4) Osteoarthritis Status: Acute (5) Thrombocytopenia Status: Acute (6) Sepsis Status: Acute (7) Carbapenem-resistant bacterial infection Status: Acute (8) Meningioma Status: Acute (9) Myasthenia Status: Acute
[2017-03-25] MEDS: (Lantus) Insulin Glargine, Recombinant SC SCH (21:33)
[2017-03-26] MEDS: metroNIDAZOLE IV 500 mg/100 ml 500 MG/100 ML BAG IVPB SCH ×4 (01:27→18:00)
[2017-03-26] MEDS: (Novolin R) Insulin Human Regular 100 units/ml vial SC SCH ×5 (08:38→21:46)
[2017-03-26] MEDS ORDERED: DiphenhydrAMINE 50 mg/ml Inj IVP ONE (09:30)
[2017-03-26] MEDS ORDERED: MethylPREDNISolone 40 mg Vial IV ONE (09:30)
[2017-03-26] MEDS ORDERED: Calcium Gluconate 9.3 MEQ in Sodium Chloride 0.9% 250 ML IV ONE (10:00)
--- NOTE | 2017-03-26 10:06 | CT ---
PROCEDURE: CT scan brain dated 03/26/2027 HISTORY: Lethargy. Low platelet. COMPARISON: None available. TECHNIQUE: Axial computed tomography images were obtained through the head/brain without intravenous contrast. Radiation dose: Total exam DLP = 1092.99 mGy-cm. This CT exam was performed using one or more of the following dose reduction techniques: Automated exposure control, adjustment of the mA and/or kV according to patient size, and/or use of iterative reconstruction technique. FINDINGS: HEMORRHAGE: No acute parenchymal, subarachnoid nor extra-axial hemorrhage. BRAIN: Previously noted meningioma along planum sphenoidale and extending superiorly along the right parasagittal margin anterior interhemispheric fissure is less well seen due to the lack of circulating intravenous contrast material. . There is surrounding large area of vasogenic white matter edema surrounding the tumor within the right inferior frontal pole. . Mild effacement all also well compression of anterior inferior margin of the right or the Moderate to fairly significant diffuse/confluent chronic white matter ischemic changes seen extending peripherally into the deep and subcortical white matter both cerebral hemispheres. Ischemic changes seen extending into the white matter tracts of both basal nuclei. Moderate generalized volume loss. VENTRICLES: No obstructive hydrocephalus. CALVARIUM: No acute calvarial fractures. PARANASAL SINUSES: Unremarkable as visualized. No significant inflammatory changes. MASTOID AIR CELLS: Unremarkable as visualized. No inflammatory changes. OTHER FINDINGS: None. 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 Note that this tumor is less well seen on this exam as compared to prior contrast enhanced CT scan 03/12/2017. There is a relatively large amount of surrounding vasogenic edema within the right inferior frontal pole. Moderate chronic white matter ischemic changes with extension into white matter tracts of both basal nuclei. Moderate generalized volume loss. . No obstructive hydrocephalus Findings discussed with Dr. Cota at approximately 9:58 a.m. with written down and read back verification.
[2017-03-26] MEDS: PrednisoLONE 1% Opht Susp(5 ml) OD SCH ×5 (11:00→21:47)
[2017-03-26] MEDS: Magnesium Oxide 400 mg Tab UD PO SCH ×2 (11:00→12:12)
[2017-03-26] MEDS: Dexamethasone 4 mg/1 ml IVP SCH ×2 (11:00→12:13)
[2017-03-26] MEDS: Potassium Chloride 20 mEq/15 ml LIQ UD PO SCH ×3 (11:00→17:30)
[2017-03-26] MEDS: Ofloxacin 0.3% Ophth Soln OD SCH ×5 (11:00→21:47)
--- NOTE | 2017-03-26 11:36 | CP.PCM.PN ---
Subjective - Date & Time of Evaluation Date of Evaluation: 03/26/17 Time of Evaluation: 11:33 - Subjective Subjective: undergoing plasmapheresis now- tolerating well BP stable; no new complaint otherwise plats still low Objective - Vital Signs/Intake and Output Vital Signs (last 24 hours): Temp Pulse Resp BP Pulse Ox 97.3 F L 73 20 144/77 100 03/26/17 08:41 03/26/17 08:41 03/26/17 08:41 03/26/17 08:41 03/26/17 08:41 Intake and Output: 03/26/17 03/26/17 06:59 18:59 Intake Total 440 Output Total 0 Balance 440 - Medications Medications: Current Medications Dexamethasone (Decadron Inj) 4 mg IVP DAILY [facility] Last Admin: 03/26/17 11:00 Dose: Not Given Dextrose (Dextrose 50% Inj) 0 ml IVP .STAT PRN; Protocol PRN Reason: Hypoglycemia Protocol Last Admin: 03/14/17 06:59 Dose: 50 ml Famotidine (Pepcid) 20 mg PO DAILY [facility] Last Admin: 03/26/17 11:00 Dose: Not Given Metronidazole (Flagyl) 500 mg in 100 mls @ 100 mls/hr IVPB Q8H [facility] Last Admin: 03/26/17 11:00 Dose: Not Given Tigecycline 50 mg/ Sodium (Chloride) 50 mls @ 100 mls/hr IVPB Q12H [facility] Last Admin: 03/25/17 23:30 Dose: 100 mls/hr Insulin Glargine (Lantus) 8 unit SC HS [facility] Last Admin: 03/25/17 21:33 Dose: 8 units Insulin Human Regular (Novolin R) 0 unit SC ACHS [facility] PRN Reason: Protocol Last Admin: 03/26/17 08:38 Dose: 2 unit Lorazepam (Ativan) 0.5 mg PO HS PRN PRN Reason: Anxiety Last Admin: 03/18/17 04:34 Dose: 0.5 mg Magnesium Oxide (Mag-Ox) 400 mg PO DAILY [facility] Last Admin: 03/26/17 11:00 Dose: Not Given Ofloxacin (Ocuflox Ophth 0.3%) 0 ml OD QID [facility] Last Admin: 03/26/17 11:00 Dose: Not Given Potassium Chloride (Potassium Chloride Oral Soln) 20 meq PO BID [facility] Last Admin: 03/26/17 11:00 Dose: Not Given Prednisolone Acetate (Pred Forte 1% Opht Susp) 0 ml OD QID [facility] Last Admin: 03/26/17 11:00 Dose: Not Given Pyridostigmine [place] (Mestinon Tab) 60 mg PO TID [facility] Last Admin: 03/26/17 11:00 Dose: Not Given Timolol Maleate (Timoptic 0.5% Ophth Soln) 1 drop OD BID [facility] Last Admin: 03/26/17 11:00 Dose: Not Given - Labs Labs: 03/25/17 12:45 03/23/17 11:14 PT 18.8 SECONDS (9.7-12.2) H D 03/21/17 07:17 INR 1.6 D 03/21/17 07:17 APTT 35 SECONDS (21-34) H D 03/21/17 07:17 - Constitutional Appears: No Acute Distress, Chronically Ill - Head Exam Head Exam: ATRAUMATIC, NORMAL INSPECTION - Eye Exam Eye Exam: Periorbital swelling, Periorbital tenderness - Neck Exam Neck Exam: Normal Inspection. absent: Tenderness - Respiratory Exam Respiratory Exam: Clear to Ausculation Bilateral, NORMAL BREATHING PATTERN - Cardiovascular Exam Cardiovascular Exam: REGULAR RHYTHM, +S1 - GI/Abdominal Exam GI & Abdominal Exam: Soft. absent: Tenderness - Extremities Exam Extremities Exam: absent: Normal Inspection, Tenderness - Neurological Exam Neurological Exam: Awake, CN II-XII Intact - Skin Skin Exam: Dry, Warm Assessment and Plan (1) Myasthenia Status: Acute (2) Other secondary thrombocytopenia Status: Acute (3) Meningioma Status: Acute (4) Hypokalemia Status: Acute (5) Carbapenem-resistant bacterial infection Status: Acute (6) Myelodysplasia (myelodysplastic syndrome) Status: Acute - Assessment and Plan (Free Text) Plan: plasmapherersis now; next treatment 03/28 neuro follow up for effect on myasthenia gravis
[2017-03-26 12:05] LABS: BASO # 0.1 K/uL (0.0-0.2); BASO % 0.3 % (0.0-2.0); LYMPH # 2.4 K/uL (1.0-4.3); LYMPH % 7.6 % (20.0-40.0)
[2017-03-26 12:15] LABS: HEMATOCRIT 25.5 % (34.0-47.0); MEAN CELL VOLUME 95.1 fL (81.0-99.0); MEAN CORPUSCULAR HEMOGLOBIN 30.2 pg (27.0-31.0); MEAN CORPUSCULAR HGB CONC 31.8 g/dL (33.0-37.0); MONO % 12.7 % (0.0-10.0); WHITE BLOOD COUNT 31.1 K/uL (4.8-10.8)
[2017-03-26 12:21] LABS: NRBC % 0.1 % (0.0-2.0); PLATELET COUNT 10 K/uL (130-400)
[2017-03-26 12:24] LABS: FDP INTERPRETATION POSITIVE (NEGATIVE); FDP QUANTITY >10<40 ug/mL (<10)
[2017-03-26 12:25] LABS: FIBRINOGEN < 98 mg/dL (200-400); INR 1.5; PARTIAL THROMBOPLASTIN TIME 38 SECONDS (21-34)
--- NOTE | 2017-03-26 13:07 | CP.PCM.PN ---
Subjective - Date & Time of Evaluation Date of Evaluation: 03/26/17 Time of Evaluation: 13:03 - Subjective Subjective: The patient seems more awake, was able to eat some pureed food, platelets and fibrinogen dropping post plasmapheresis, no active bleeding reported Objective - Vital Signs/Intake and Output Vital Signs (last 24 hours): Temp Pulse Resp BP Pulse Ox 97.3 F L 73 20 144/77 100 03/26/17 08:41 03/26/17 08:41 03/26/17 08:41 03/26/17 08:41 03/26/17 08:41 Intake and Output: 03/26/17 03/26/17 06:59 18:59 Intake Total 440 Output Total 0 Balance 440 - Medications Medications: Current Medications Albuterol Sulfate (Albuterol 0.042% Inhal Tricia (1.25mg/3ml) Ud) 1.25 mg INH RQ8 [facility] Dexamethasone (Decadron Inj) 4 mg IVP DAILY [facility] Last Admin: 03/26/17 12:13 Dose: 4 mg Dextrose (Dextrose 50% Inj) 0 ml IVP .STAT PRN; Protocol PRN Reason: Hypoglycemia Protocol Last Admin: 03/14/17 06:59 Dose: 50 ml Famotidine (Pepcid) 20 mg PO DAILY [facility] Last Admin: 03/26/17 12:13 Dose: 20 mg Metronidazole (Flagyl) 500 mg in 100 mls @ 100 mls/hr IVPB Q8H [facility] Last Admin: 03/26/17 12:21 Dose: 100 mls/hr Tigecycline 50 mg/ Sodium (Chloride) 50 mls @ 100 mls/hr IVPB Q12H [facility] Last Admin: 03/26/17 13:00 Dose: 100 mls/hr Insulin Glargine (Lantus) 8 unit SC HS [facility] Last Admin: 03/25/17 21:33 Dose: 8 units Insulin Human Regular (Novolin R) 0 unit SC ACHS [facility] PRN Reason: Protocol Last Admin: 03/26/17 12:18 Dose: 2 unit Lorazepam (Ativan) 0.5 mg PO HS PRN PRN Reason: Anxiety Last Admin: 03/18/17 04:34 Dose: 0.5 mg Magnesium Oxide (Mag-Ox) 400 mg PO DAILY [facility] Last Admin: 03/26/17 12:12 Dose: 400 mg Ofloxacin (Ocuflox Ophth 0.3%) 0 ml OD QID [facility] Last Admin: 03/26/17 12:19 Dose: 1 drop Potassium Chloride (Potassium Chloride Oral Soln) 20 meq PO BID [facility] Last Admin: 03/26/17 12:15 Dose: 20 meq Prednisolone Acetate (Pred Forte 1% Opht Susp) 0 ml OD QID [facility] Last Admin: 03/26/17 12:20 Dose: 1 drop Pyridostigmine [place] (Mestinon Tab) 60 mg PO TID [facility] Last Admin: 03/26/17 12:18 Dose: 60 mg Timolol Maleate (Timoptic 0.5% Ophth Soln) 1 drop OD BID [facility] Last Admin: 03/26/17 12:20 Dose: 1 drop - Labs Labs: 03/26/17 11:49 03/23/17 11:14 PT 17.3 SECONDS (9.7-12.2) H 03/26/17 11:49 INR 1.5 03/26/17 11:49 APTT 38 SECONDS (21-34) H 03/26/17 11:49 Assessment and Plan (1) Myelodysplasia (myelodysplastic syndrome) Assessment & Plan: Pancytopenia, platelet counts dropping, ? secondary to plasmapheresis. Will transfuse platelets today. ??Meningioma with assoscited frontal edema, will slowly taper the Decadron. Status: Acute
[2017-03-26 13:13] LABS: BLOOD UREA NITROGEN 36 mg/dL (7-17); CALCIUM 8.8 mg/dl (8.6-10.4); CARBON DIOXIDE 20 mmol/L (22-30); CHLORIDE 117 mmol/L (98-107); GFR AFRICAN-AMERICAN > 60; GLUCOSE,RANDOM 187 mg/dL (65-105); POTASSIUM 3.2 mmol/L (3.6-5.2); SODIUM 149 mmol/L (132-148)
[2017-03-26 13:26] LABS: MYELOCYTE 1 % (0-0); NEUTROPHIL 81 % (50-75); TOTAL CELLS COUNTED 100
--- NOTE | 2017-03-26 14:41 | PN ---
DATE: SUBJECTIVE: The patient is alert, in bed. PHYSICAL EXAMINATION: VITAL SIGNS: She is afebrile, blood pressure 144/76, pulse 73, respirations 20, hemoglobin oxygen saturation of 100%. GENERAL: She is not in acute distress. HEART: Regular. No gallop rhythm. LUNGS: Diminished breath sounds over lung bases. Rhonchi decreased.. ABDOMEN: Soft. EXTREMITIES: Legs, no edema. LABORATORY DATA: White count 31,100, hemoglobin 8.1, platelet count 10,000, neutrophil 79%. INR 1.5. Fibrinogen degradation products are positive. Blood glucose 242. Chest x-ray of 03/22/2017 showed micronodular changes diffusely and some congestive changes. We will repeat chest x-ray now to reevaluate the current status and check BMP. IMPRESSION: Respiratory insufficiency, myelodysplasia, hypertensive cardiovascular disease, congestive heart failure, sepsis. Patient was seen by Infectious Disease consult as well as heme-oncologist and neurologist. PLAN: To continue with therapy and all the ordered medications including antibiotics. Abundio Silva MD
--- NOTE | 2017-03-26 15:42 | RAD ---
HISTORY: chf COMPARISON: No prior. FINDINGS: No change right IJ dialysis catheter with tips in the SVC/RA junction. LUNGS: Diffuse bilateral infiltrates the most consistent with pulmonary edema ; rule out fluid overload or CHF. PLEURA: No evidence of pneumothorax. Questionable small bilateral effusions left larger than right. CARDIOVASCULAR: Heart appears enlarged OSSEOUS STRUCTURES: No significant abnormalities. VISUALIZED UPPER ABDOMEN: In situ IVC filter. OTHER FINDINGS: None. IMPRESSION: Pulmonary edema; rule out fluid overload and/or CHF.
[2017-03-26] MEDS: Albuterol 0.042% Inhal Sol (1.25 mg/3 mL) UD INH SCH (19:48)
[2017-03-26] MEDS: (Lantus) Insulin Glargine, Recombinant SC SCH (21:46)
--- NOTE | 2017-03-26 22:57 | CP.PCM.PN ---
Subjective - Date & Time of Evaluation Date of Evaluation: 03/26/17 Time of Evaluation: 13:35 - Subjective Subjective: Patient more responsive and toerating food. Plasmaphoresis completed with no complications. Patient still has low platlets and was placed on procrit. Objective - Vital Signs/Intake and Output Vital Signs (last 24 hours): Temp Pulse Resp BP Pulse Ox 97.4 F L 57 L 20 145/76 100 03/26/17 15:47 03/26/17 15:47 03/26/17 15:47 03/26/17 15:47 03/26/17 15:45 Intake and Output: 03/26/17 03/27/17 18:59 06:59 Intake Total 582 Output Total 0 Balance 582 - Medications Medications: Current Medications Albuterol Sulfate (Albuterol 0.042% Inhal Tricia (1.25mg/3ml) Ud) 1.25 mg INH RQ8 [facility] Last Admin: 03/26/17 19:48 Dose: Not Given Dexamethasone (Decadron Inj) 2 mg IV DAILY [facility] Dextrose (Dextrose 50% Inj) 0 ml IVP .STAT PRN; Protocol PRN Reason: Hypoglycemia Protocol Last Admin: 03/14/17 06:59 Dose: 50 ml Epoetin Arturo (Procrit) 10,000 unit SC MWF [facility] Famotidine (Pepcid) 20 mg PO DAILY [facility] Last Admin: 03/26/17 12:13 Dose: 20 mg Metronidazole (Flagyl) 500 mg in 100 mls @ 100 mls/hr IVPB Q8H [facility] Last Admin: 03/26/17 18:00 Dose: 100 mls/hr Tigecycline 50 mg/ Sodium (Chloride) 50 mls @ 100 mls/hr IVPB Q12H [facility] Last Admin: 03/26/17 13:00 Dose: 100 mls/hr Insulin Glargine (Lantus) 8 unit SC HS [facility] Last Admin: 03/26/17 21:46 Dose: 8 units Insulin Human Regular (Novolin R) 0 unit SC ACHS [facility] PRN Reason: Protocol Last Admin: 03/26/17 21:46 Dose: Not Given Lorazepam (Ativan) 0.5 mg PO HS PRN PRN Reason: Anxiety Last Admin: 03/18/17 04:34 Dose: 0.5 mg Magnesium Oxide (Mag-Ox) 400 mg PO DAILY [facility] Last Admin: 03/26/17 12:12 Dose: 400 mg Ofloxacin (Ocuflox Ophth 0.3%) 0 ml OD QID [facility] Last Admin: 03/26/17 21:47 Dose: 1 drop Potassium Chloride (Potassium Chloride Oral Soln) 20 meq PO BID [facility] Last Admin: 03/26/17 17:30 Dose: 20 meq Prednisolone Acetate (Pred Forte 1% Opht Susp) 0 ml OD QID [facility] Last Admin: 03/26/17 21:47 Dose: 1 drop Pyridostigmine [place] (Mestinon Tab) 60 mg PO TID [facility] Last Admin: 03/26/17 17:29 Dose: 60 mg Timolol Maleate (Timoptic 0.5% Ophth Soln) 1 drop OD BID [facility] Last Admin: 03/26/17 17:29 Dose: 1 drop - Labs Labs: 03/26/17 11:49 03/26/17 11:49 PT 17.3 SECONDS (9.7-12.2) H 03/26/17 11:49 INR 1.5 03/26/17 11:49 APTT 38 SECONDS (21-34) H 03/26/17 11:49 - Constitutional Appears: Chronically Ill - Head Exam Head Exam: NORMOCEPHALIC - ENT Exam ENT Exam: Normal Exam - Neck Exam Neck Exam: Normal Inspection - Respiratory Exam Respiratory Exam: Decreased Breath Sounds - Cardiovascular Exam Cardiovascular Exam: REGULAR RHYTHM - GI/Abdominal Exam GI & Abdominal Exam: Hyperactive Bowel Sounds - Rectal Exam Rectal Exam: Deferred - Exam External exam: NORMAL EXTERNAL EXAM - Extremities Exam Extremities Exam: Tenderness - Back Exam Back Exam: NORMAL INSPECTION - Neurological Exam Neurological Exam: Awake - Psychiatric Exam Psychiatric exam: Depressed - Skin Skin Exam: Dry Assessment and Plan (1) Myelodysplasia (myelodysplastic syndrome) Status: Acute (2) Severe anemia Status: Acute (3) Degenerative disc disease at L5-S1 level Status: Acute (4) Osteoarthritis Status: Acute (5) Thrombocytopenia Status: Acute (6) Sepsis Status: Acute (7) Carbapenem-resistant bacterial infection Status: Acute (8) Meningioma Status: Acute (9) Myasthenia Status: Acute
[2017-03-27] MEDS: Albuterol 0.042% Inhal Sol (1.25 mg/3 mL) UD INH SCH ×4 (00:04→23:40)
[2017-03-27] MEDS: metroNIDAZOLE IV 500 mg/100 ml 500 MG/100 ML BAG IVPB SCH ×3 (01:58→17:23)
--- NOTE | 2017-03-27 07:11 | PN ---
DATE: 03/26/2017 NEUROLOGICAL PROBLEM: Myasthenia gravis, under plasmapheresis. PHYSICAL EXAMINATION: VITAL SIGNS: Blood pressure 139/76, mean arterial pressure 97, respiratory rate 16, temperature 97.3. GENERAL: The patient is awake, alert, oriented to person, place and time. The patient did show the episodic change in mental status. Considering her platelet and hemoglobin are decreased, the patient should have a CT of the head to rule out any definite bleed. The patient can get plasmapheresis as per the schedule. Following the plasmapheresis, the patient should get intravenous immunoglobulin to stabilize her neuromuscular status. The patient will be followed while she is in the hospital. Javad Cota MD
--- NOTE | 2017-03-27 08:02 | PN ---
DATE: 03/27/2017 NEUROLOGICAL PROBLEM: Myasthenia gravis, on plasmapheresis. Incidental meningioma with some mass effect. PHYSICAL EXAMINATION: VITAL SIGNS: Blood pressure 156/74 with mean arterial pressure of 101, respiratory rate 18, temperature 97.5, pulse rate 63, regular. NEUROLOGICAL: The patient is sleeping soundly. On tactile stimuli, the patient is arousable. Speech is intact. No new changes. No new findings. Her examination is unchanged compared with my previous examination. ASSESSMENT AND PLAN: The patient is scheduled plasmapheresis as recommended. As suggested, the patient will be getting intravenous immunoglobulin following completion of the plasmapheresis. In the meantime, the patient should get deep venous thrombosis prophylaxis and physical therapy as recommended. Javad Cota MD
[2017-03-27] MEDS: (Novolin R) Insulin Human Regular 100 units/ml vial SC SCH ×4 (08:29→21:15)
[2017-03-27] MEDS: Dexamethasone 4 mg/1 ml IV SCH (09:45)
[2017-03-27] MEDS: Magnesium Oxide 400 mg Tab UD PO SCH (09:46)
[2017-03-27] MEDS: PrednisoLONE 1% Opht Susp(5 ml) OD SCH ×4 (09:47→21:16)
[2017-03-27] MEDS: Ofloxacin 0.3% Ophth Soln OD SCH ×4 (09:47→21:15)
[2017-03-27] MEDS: Potassium Chloride 20 mEq/15 ml LIQ UD PO SCH ×2 (09:47→17:30)
--- NOTE | 2017-03-27 10:45 | CP.PCM.PN ---
Subjective - Date & Time of Evaluation Date of Evaluation: 03/27/17 Time of Evaluation: 10:43 - Subjective Subjective: no events for plasmapheresis tomorrow low platelets noted poor po intake pt unable to provide ros, getting cleaned at this time. Objective - Vital Signs/Intake and Output Vital Signs (last 24 hours): Temp Pulse Resp BP Pulse Ox 97.4 F L 61 20 148/69 99 03/27/17 08:32 03/27/17 08:32 03/27/17 08:32 03/27/17 08:32 03/27/17 08:32 - Medications Medications: Current Medications Albuterol Sulfate (Albuterol 0.042% Inhal Tricia (1.25mg/3ml) Ud) 1.25 mg INH RQ8 [facility] Last Admin: 03/27/17 08:28 Dose: 1.25 mg Dexamethasone (Decadron Inj) 2 mg IV DAILY [facility] Last Admin: 03/27/17 09:45 Dose: 2 mg Dextrose (Dextrose 50% Inj) 0 ml IVP .STAT PRN; Protocol PRN Reason: Hypoglycemia Protocol Last Admin: 03/14/17 06:59 Dose: 50 ml Epoetin Arturo (Procrit) 10,000 unit SC MWF [facility] Famotidine (Pepcid) 20 mg PO DAILY [facility] Last Admin: 03/27/17 09:46 Dose: 20 mg Metronidazole (Flagyl) 500 mg in 100 mls @ 100 mls/hr IVPB Q8H [facility] Last Admin: 03/27/17 09:59 Dose: 100 mls/hr Tigecycline 50 mg/ Sodium (Chloride) 50 mls @ 100 mls/hr IVPB Q12H [facility] Last Admin: 03/26/17 23:52 Dose: 100 mls/hr Sodium Chloride (Sodium Chloride 0.45%) 1,000 mls @ 60 mls/hr IV .[id number] [facility] Insulin Glargine (Lantus) 8 unit SC HS [facility] Last Admin: 03/26/17 21:46 Dose: 8 units Insulin Human Regular (Novolin R) 0 unit SC ACHS [facility] PRN Reason: Protocol Last Admin: 03/27/17 08:29 Dose: 4 unit Lorazepam (Ativan) 0.5 mg PO HS PRN PRN Reason: Anxiety Last Admin: 03/18/17 04:34 Dose: 0.5 mg Magnesium Oxide (Mag-Ox) 400 mg PO DAILY [facility] Last Admin: 03/27/17 09:46 Dose: 400 mg Ofloxacin (Ocuflox Ophth 0.3%) 0 ml OD QID [facility] Last Admin: 03/27/17 09:47 Dose: 1 drop Potassium Chloride (Potassium Chloride Oral Soln) 20 meq PO BID [facility] Last Admin: 03/27/17 09:47 Dose: 20 meq Prednisolone Acetate (Pred Forte 1% Opht Susp) 0 ml OD QID [facility] Last Admin: 03/27/17 09:47 Dose: 1 drop Pyridostigmine [place] (Mestinon Tab) 60 mg PO TID [facility] Last Admin: 03/27/17 09:46 Dose: 60 mg Timolol Maleate (Timoptic 0.5% Ophth Soln) 1 drop OD BID [facility] Last Admin: 03/27/17 09:47 Dose: 1 drop - Labs Labs: 03/26/17 11:49 03/26/17 11:49 PT 17.3 SECONDS (9.7-12.2) H 03/26/17 11:49 INR 1.5 03/26/17 11:49 APTT 38 SECONDS (21-34) H 03/26/17 11:49 - Constitutional Appears: No Acute Distress, Older Than Stated Age, Chronically Ill - Head Exam Head Exam: NORMAL INSPECTION - Eye Exam Additional comments: rt eye erythematous mass projecting from lower eyelid - ENT Exam ENT Exam: Mucous Membranes Dry - Neck Exam Neck Exam: Normal Inspection - Respiratory Exam Respiratory Exam: Clear to Ausculation Bilateral, NORMAL BREATHING PATTERN - GI/Abdominal Exam GI & Abdominal Exam: Distended, Soft - Extremities Exam Extremities Exam: Normal Inspection Assessment and Plan (1) Thrombocytopathia Status: Acute (2) Carbapenem-resistant bacterial infection Status: Acute (3) Hypokalemia Status: Acute (4) Meningioma Status: Acute (5) Myasthenia Status: Acute (6) Myelodysplasia (myelodysplastic syndrome) Status: Acute - Assessment and Plan (Free Text) Assessment: plasmapheresis planned for tomorrow 1/2NS for hypernatremia, encourage po fluids potassium supplementation f/u w/ hematology reg severe thrombocytopenia
[2017-03-27] MEDS: Sodium Chloride 0.45% 1,000 ML IV SCH (11:30)
[2017-03-27 12:26] LABS: BASO # 0.1 K/uL (0.0-0.2); LYMPH # 2.4 K/uL (1.0-4.3); NRBC % 0.3 % (0.0-2.0)
[2017-03-27 12:31] LABS: BASO % 0.3 % (0.0-2.0); HEMATOCRIT 23.8 % (34.0-47.0); LYMPH % 8.2 % (20.0-40.0); MEAN CELL VOLUME 96.1 fL (81.0-99.0); MEAN CORPUSCULAR HEMOGLOBIN 29.5 pg (27.0-31.0); MEAN CORPUSCULAR HGB CONC 30.7 g/dL (33.0-37.0); MEAN PLATELET VOLUME 7.1 fL (7.2-11.7); MONO # 4.1 K/uL (0.0-0.8); RED CELL DISTRIBUTION WIDTH 21.2 % (11.5-14.5); WHITE BLOOD COUNT 29.5 K/uL (4.8-10.8)
[2017-03-27 12:32] LABS: PLATELET COUNT 40 K/uL (130-400)
[2017-03-27 12:43] LABS: NEUTROPHIL 71 % (50-75); TOTAL CELLS COUNTED 100
[2017-03-27 12:59] LABS: BLOOD UREA NITROGEN 37 mg/dL (7-17); CALCIUM 8.8 mg/dl (8.6-10.4); CARBON DIOXIDE 14 mmol/L (22-30); CHLORIDE 119 mmol/L (98-107); GFR AFRICAN-AMERICAN > 60; GLUCOSE,RANDOM 237 mg/dL (65-105); POTASSIUM 3.7 mmol/L (3.6-5.2); SODIUM 149 mmol/L (132-148)
--- NOTE | 2017-03-27 19:42 | PN ---
DATE: SUBJECTIVE: Patient is in bed, responds to questions. States she feels tired. She has had transfusions today and her platelet count is a little better today. She had thousand transfusions. PHYSICAL EXAMINATION: VITAL SIGNS: She is afebrile with a blood pressure 148/68, pulse is 61, respirations 20 per minute, hemoglobin oxygen saturation of 99%. HEART: Regular with no gallop rhythm. LUNGS: Diminished breath sounds, rhonchi decreased. ABDOMEN: Soft. EXTREMITIES: Legs, no edema. LABORATORY DATA: White count is raised to 29,500, hemoglobin is low at 7.3, and platelet count is 40,000. Serum sodium is 149, potassium 3.7, chloride 119, BUN 37, creatinine 0.8. Chest x-ray shows diffuse haze over the lung basal areas and interstitial pattern. She is on antibiotics for sepsis and gets Lasix covering now and then depending upon the level of the pulmonary congestion. IMPRESSION: Respiratory insufficiency, severe anemia, thrombocytopenia, myelodysplasia, sepsis, pneumonitis, hypertensive cardiovascular disease, pulmonary congestive changes. Patient was seen by heme-oncologist, by infectious disease specialist, by phosphatic fertilizer supervisor and phosphatic fertilizer supervisor as well as vascular surgeon. PLAN: To continue with current medications including antibiotics, bronchodilators, and treatments recommended by heme/onc, neurologist and phosphatic fertilizer supervisor. Patient is being treated for diabetes mellitus also. Abundio Silva MD [facility]
--- NOTE | 2017-03-27 20:41 | CP.PCM.CON ---
History of Present Illness - History of Present Illness History of Present Illness: Pt is a 76 yo female with 3 week history of no vision in right eye. She reports initially had pain but no pain after initiating drops. She reports no history of ocular surgery. Past Patient History - Infectious Disease Hx of Infectious Diseases: None - Tetanus Immunizations Tetanus Immunization: Unknown, Up to Date - Past Medical History & Family History Past Medical History?: Yes Past Family History: Reviewed and not pertinent - Past Social History Smoking Status: Never Smoked Chewing Tobacco Use: No Cigar Use: No Alcohol: None Drugs: Denies Home Situation {Lives}: With Family - CARDIAC Hx Congestive Heart Failure: Yes Hx Hypertension: Yes - PULMONARY Hx Chronic Obstructive Pulmonary Disease (COPD): Yes (EMPHYSEMA) - NEUROLOGICAL Hx Neurological Disorder: No Hx Vertigo: Yes - HEENT Hx HEENT Problems: No - RENAL Hx Chronic Kidney Disease: No - ENDOCRINE/METABOLIC Hx Diabetes Mellitus Type 2: Yes - HEMATOLOGICAL/ONCOLOGICAL Hx Anemia: Yes Hx Blood Transfusions: Yes - INTEGUMENTARY Hx Dermatological Problems: No Other/Comment: BLE w/ cauliflowered skin - MUSCULOSKELETAL/RHEUMATOLOGICAL Hx Arthritis: Yes (NECK, L SH; B/L KNEES) - GASTROINTESTINAL Hx Gastritis: Yes - GENITOURINARY/GYNECOLOGICAL Hx Genitourinary Disorders: No Para: 2 - PSYCHIATRIC Hx Physical Abuse: No Hx Schizophrenia: No Hx Sexual Abuse: No Hx Substance Use: No - SURGICAL HISTORY Hx Cholecystectomy: Yes (in 2010) Hx Tonsillectomy: Yes (8yrs old) - ANESTHESIA Hx Anesthesia: Yes Hx Anesthesia Reactions: No Hx Malignant Hyperthermia: No Meds Allergies/Adverse Reactions: Allergies Allergy/AdvReac Type Severity Reaction Status Date / Time Gadolinium-Containing Allergy ITCHING Verified 12/13/16 15:45 Contrast Medi - Medications Medications: Current Medications Albuterol Sulfate (Albuterol 0.042% Inhal Tricia (1.25mg/3ml) Ud) 1.25 mg INH RQ8 [facility] Last Admin: 03/27/17 16:23 Dose: 1.25 mg Dexamethasone (Decadron Inj) 2 mg IV DAILY [facility] Last Admin: 03/27/17 09:45 Dose: 2 mg Dextrose (Dextrose 50% Inj) 0 ml IVP .STAT PRN; Protocol PRN Reason: Hypoglycemia Protocol Last Admin: 03/14/17 06:59 Dose: 50 ml Epoetin Arturo (Procrit) 10,000 unit SC MWF [facility] Famotidine (Pepcid) 20 mg PO DAILY [facility] Last Admin: 03/27/17 09:46 Dose: 20 mg Metronidazole (Flagyl) 500 mg in 100 mls @ 100 mls/hr IVPB Q8H [facility] Last Admin: 03/27/17 17:23 Dose: 100 mls/hr Tigecycline 50 mg/ Sodium (Chloride) 50 mls @ 100 mls/hr IVPB Q12H [facility] Last Admin: 03/27/17 11:29 Dose: 100 mls/hr Sodium Chloride (Sodium Chloride 0.45%) 1,000 mls @ 60 mls/hr IV .[id number] [facility] Last Admin: 03/27/17 11:30 Dose: 60 mls/hr Insulin Glargine (Lantus) 8 unit SC [facility] Last Admin: 03/26/17 21:46 Dose: 8 units Insulin Human Regular (Novolin R) 0 unit SC ACHS [facility] PRN Reason: Protocol Last Admin: 03/27/17 17:28 Dose: 3 unit Lorazepam (Ativan) 0.5 mg PO PRN PRN Reason: Anxiety Last Admin: 03/18/17 04:34 Dose: 0.5 mg Ofloxacin (Ocuflox Ophth 0.3%) 0 ml OD QID [facility] Last Admin: 03/27/17 17:29 Dose: 1 drop Potassium Chloride (Potassium Chloride Oral Soln) 20 meq PO BID [facility] Last Admin: 03/27/17 17:30 Dose: 20 meq Prednisolone Acetate (Pred Forte 1% Opht Susp) 0 ml OD QID [facility] Last Admin: 03/27/17 17:26 Dose: 1 drop Pyridostigmine [place] (Mestinon Tab) 60 mg PO TID [facility] Last Admin: 03/27/17 17:29 Dose: 60 mg Timolol Maleate (Timoptic 0.5% Ophth Soln) 1 drop OD BID [facility] Last Admin: 03/27/17 17:27 Dose: 1 drop Physical Exam - Eye Exam Additional comments: On exam Visual acuity OD: NLP OS: 20/150 Very difficult exam:(unable to position in slit lamp) Exam by bedside OD: soft to palpation RLL lesion ~2 cm scaly, pedunculated, tender to palpation with RLL ectropion 1+ conj inection Cornea clear AC HAZY with fibrin at pupil Hypermature lens No view posterior OS: soft to palpation Normal lids No injection Pupil reactive nuclear cataract Results - Vital Signs Recent Vital Signs: Last Vital Signs Temp 97.2 F L 03/27/17 15:00 Pulse 66 03/27/17 15:00 Resp 20 03/27/17 15:00 BP 148/77 03/27/17 15:00 Pulse Ox 100 03/27/17 15:00 - Labs Result Diagrams: 03/27/17 12:13 03/27/17 12:13 Labs: Laboratory Results - last 24 hr 03/26/17 03/26/17 03/27/17 11:49 21:10 07:21 WBC RBC Hgb Hct MCV MCH MCHC RDW Plt Count MPV Neut % (Auto) Lymph % (Auto) [place] % (Auto) Eos % (Auto) Baso % (Auto) Neut # Lymph # [place] # Eos # Baso # Neutrophils % (Manual) Band Neutrophils % Lymphocytes % (Manual) Monocytes % (Manual) Platelet Estimate Hypochromasia (manual) Poikilocytosis (manual Anisocytosis (manual) Target Cells Ovalocytes Haptoglobin 39 L Sodium Potassium Chloride Carbon Dioxide Anion Gap BUN Creatinine Est GFR ( Amer) Est GFR (Non-Af Amer) POC Glucose (mg/dL) 301 H 325 H Random Glucose Calcium 03/27/17 03/27/17 03/27/17 11:25 12:13 12:13 WBC 29.5 H RBC 2.48 L Hgb 7.3 L Hct 23.8 L MCV 96.1 MCH 29.5 MCHC 30.7 L RDW 21.2 H Plt Count 40 L D MPV 7.1 L Neut % (Auto) 77.5 H Lymph % (Auto) 8.2 L Hernando % (Auto) 14.0 H Eos % (Auto) 0.0 Baso % (Auto) 0.3 Neut # 22.8 H Lymph # 2.4 Hernando # 4.1 H Eos # 0.0 Baso # 0.1 Neutrophils % (Manual) 71 Band Neutrophils % 4 H Lymphocytes % (Manual) 10 L Monocytes % (Manual) 15 H Platelet Estimate Decreased L Hypochromasia (manual) Slight Poikilocytosis (manual Slight Anisocytosis (manual) Moderate Target Cells Slight Ovalocytes Slight Haptoglobin Sodium 149 H Potassium 3.7 Chloride 119 H Carbon Dioxide 14 L Anion Gap 20 BUN 37 H Creatinine 0.8 Est GFR ( Amer) > 60 Est GFR (Non-Af Amer) > 60 POC Glucose (mg/dL) 285 H Random Glucose 237 H Calcium 8.8 03/27/17 16:04 WBC RBC Hgb Hct MCV MCH MCHC RDW Plt Count MPV Neut % (Auto) Lymph % (Auto) Hern[place] % (Auto) Eos % (Auto) Baso % (Auto) Neut # Lymph # [place] # Eos # Baso # Neutrophils % (Manual) Band Neutrophils % Lymphocytes % (Manual) Monocytes % (Manual) Platelet Estimate Hypochromasia (manual) Poikilocytosis (manual Anisocytosis (manual) Target Cells Ovalocytes Haptoglobin Sodium Potassium Chloride Carbon Dioxide Anion Gap BUN Creatinine Est GFR ( Amer) Est GFR (Non-Af Amer) POC Glucose (mg/dL) 260 H Random Glucose Calcium Assessment & Plan (1) Cataracts, bilateral Assessment and Plan: Morganian OD Nuclear sclerotic OS No surgical intervention indicated given NLP OD Status: Acute (2) Lesion of eyelid Assessment and Plan: RLL lesion - infectious vs mass - ID/derm involvement appreciated. Oculoplastics follow-up when discharged. Status: Acute (3) Ectropion Assessment and Plan: Appears mass effect from RLL lesion. Erythromycin or bacitracin ointment at bedtime for ocular surface lubrication Status: Acute (4) Loss of vision Assessment and Plan: NLP OD in setting of inflammation due to morganian cataract OD vs infection. Extremely poor visual prognosis due to NLP vision - continue treatment for comfort. PF QID OD, Ocuflox QID OD, timolol BID OD If any questions please contact our office [phone]. Status: Acute
[2017-03-27] MEDS: (Lantus) Insulin Glargine, Recombinant SC SCH (21:17)
[2017-03-27] MEDS: Erythromycin 0.5% Ophth Oint 1 APPLIC/3.5 G OD SCH (21:44)
--- NOTE | 2017-03-27 23:09 | CP.PCM.PN ---
Subjective - Date & Time of Evaluation Date of Evaluation: 03/27/17 Time of Evaluation: 13:35 - Subjective Subjective: Still mildly confused. Patient was evaluated by Dr Morrell eyelet riveter. Platlets 40,000 today, Hgb 7.3. Patient scheduled for plasmaphoresis. Objective - Vital Signs/Intake and Output Vital Signs (last 24 hours): Temp Pulse Resp BP Pulse Ox 97.2 F L 66 20 148/77 100 03/27/17 15:00 03/27/17 15:00 03/27/17 15:00 03/27/17 15:00 03/27/17 15:00 Intake and Output: 03/27/17 03/28/17 18:59 06:59 Intake Total 780 Output Total 1 Balance 779 - Medications Medications: Current Medications Albuterol Sulfate (Albuterol 0.042% Inhal Tricia (1.25mg/3ml) Ud) 1.25 mg INH RQ8 [facility] Last Admin: 03/27/17 16:23 Dose: 1.25 mg Dexamethasone (Decadron Inj) 2 mg IV DAILY [facility] Last Admin: 03/27/17 09:45 Dose: 2 mg Dextrose (Dextrose 50% Inj) 0 ml IVP .STAT PRN; Protocol PRN Reason: Hypoglycemia Protocol Last Admin: 03/14/17 06:59 Dose: 50 ml Epoetin Arturo (Procrit) 10,000 unit SC MWF [facility] Erythromycin (Erythromycin) 1 applic OD [facility] Last Admin: 03/27/17 21:44 Dose: 1 appl Famotidine (Pepcid) 20 mg PO DAILY [facility] Last Admin: 03/27/17 09:46 Dose: 20 mg Metronidazole (Flagyl) 500 mg in 100 mls @ 100 mls/hr IVPB Q8H [facility] Last Admin: 03/27/17 17:23 Dose: 100 mls/hr Tigecycline 50 mg/ Sodium (Chloride) 50 mls @ 100 mls/hr IVPB Q12H [facility] Last Admin: 03/27/17 11:29 Dose: 100 mls/hr Sodium Chloride (Sodium Chloride 0.45%) 1,000 mls @ 60 mls/hr IV .[id number] [facility] Last Admin: 03/27/17 11:30 Dose: 60 mls/hr Insulin Glargine (Lantus) 8 unit SC [facility] Last Admin: 03/27/17 21:17 Dose: 8 units Insulin Human Regular (Novolin R) 0 unit SC ACHS [facility] PRN Reason: Protocol Last Admin: 03/27/17 21:15 Dose: Not Given Lorazepam (Ativan) 0.5 mg PO HS PRN PRN Reason: Anxiety Last Admin: 03/18/17 04:34 Dose: 0.5 mg Ofloxacin (Ocuflox Ophth 0.3%) 0 ml OD QID [facility] Last Admin: 03/27/17 21:15 Dose: 1 drop Potassium Chloride (Potassium Chloride Oral Soln) 20 meq PO BID [facility] Last Admin: 03/27/17 17:30 Dose: 20 meq Prednisolone Acetate (Pred Forte 1% Opht Susp) 0 ml OD QID [facility] Last Admin: 03/27/17 21:16 Dose: 1 drop Pyridostigmine [place] (Mestinon Tab) 60 mg PO TID [facility] Last Admin: 03/27/17 17:29 Dose: 60 mg Timolol Maleate (Timoptic 0.5% Ophth Soln) 1 drop OD BID [facility] Last Admin: 03/27/17 17:27 Dose: 1 drop - Labs Labs: 03/27/17 12:13 03/27/17 12:13 PT 17.3 SECONDS (9.7-12.2) H 03/26/17 11:49 INR 1.5 03/26/17 11:49 APTT 38 SECONDS (21-34) H 03/26/17 11:49 - Constitutional Appears: Chronically Ill - Head Exam Head Exam: NORMOCEPHALIC - Eye Exam Eye Exam: Normal appearance Pupil Exam: NORMAL ACCOMODATION - ENT Exam ENT Exam: Normal Exam - Neck Exam Neck Exam: Normal Inspection - Respiratory Exam Respiratory Exam: Decreased Breath Sounds - Cardiovascular Exam Cardiovascular Exam: REGULAR RHYTHM - GI/Abdominal Exam GI & Abdominal Exam: Hyperactive Bowel Sounds - Rectal Exam Rectal Exam: Deferred - Exam External exam: NORMAL EXTERNAL EXAM - Extremities Exam Extremities Exam: Tenderness - Back Exam Back Exam: NORMAL INSPECTION - Neurological Exam Neurological Exam: Altered - Psychiatric Exam Psychiatric exam: Depressed - Skin Skin Exam: Dry Assessment and Plan (1) Myelodysplasia (myelodysplastic syndrome) Status: Acute (2) Severe anemia Status: Acute (3) Degenerative disc disease at L5-S1 level Status: Acute (4) Osteoarthritis Status: Acute (5) Thrombocytopenia Status: Acute (6) Sepsis Status: Acute (7) Carbapenem-resistant bacterial infection Status: Acute (8) Meningioma Status: Acute (9) Myasthenia Status: Acute
[2017-03-28] MEDS: metroNIDAZOLE IV 500 mg/100 ml 500 MG/100 ML BAG IVPB SCH ×3 (02:08→17:44)
[2017-03-28] MEDS: Sodium Chloride 0.45% 1,000 ML IV SCH ×2 (03:25→20:05)
[2017-03-28] MEDS: Albuterol 0.042% Inhal Sol (1.25 mg/3 mL) UD INH SCH ×2 (07:25→19:51)
[2017-03-28] MEDS: (Novolin R) Insulin Human Regular 100 units/ml vial SC SCH ×4 (07:42→21:20)
[2017-03-28] MEDS ORDERED: DiphenhydrAMINE 50 mg/ml Inj IVP ONE (09:30)
[2017-03-28] MEDS ORDERED: MethylPREDNISolone 40 mg Vial IV ONE ×2 (09:30→10:30)
[2017-03-28] MEDS: EPOETIN ALFA 10,000 UNIT/ML ML SC SCH (09:52)
[2017-03-28] MEDS: Ofloxacin 0.3% Ophth Soln OD SCH ×4 (09:56→21:20)
[2017-03-28] MEDS: PrednisoLONE 1% Opht Susp(5 ml) OD SCH ×4 (09:56→21:21)
[2017-03-28] MEDS ORDERED: Calcium Gluconate 9.3 MEQ in Sodium Chloride 0.9% 250 ML IV ONE (10:30)
[2017-03-28] MEDS: Dexamethasone 4 mg/1 ml IV SCH (12:18)
[2017-03-28] MEDS: Potassium Chloride 20 mEq/15 ml LIQ UD PO SCH ×2 (12:18→17:58)
--- NOTE | 2017-03-28 12:42 | CP.PCM.PN ---
Subjective - Date & Time of Evaluation Date of Evaluation: 03/28/17 Time of Evaluation: 12:39 - Subjective Subjective: s/p plasmapheresis now- tolerated well still rather weak ; eating fluids fair no diarrhea, SOB, CPs, HAs, dysuria BP stable, chemistries shows metabolic acidosis Objective - Vital Signs/Intake and Output Vital Signs (last 24 hours): Temp Pulse Resp BP Pulse Ox 97.2 F L 62 20 151/65 H 100 03/28/17 00:00 03/28/17 02:30 03/28/17 02:30 03/28/17 02:30 03/28/17 02:30 Intake and Output: 03/28/17 03/28/17 06:59 18:59 Intake Total 630 Balance 630 - Medications Medications: Current Medications Albuterol Sulfate (Albuterol 0.042% Inhal Tricia (1.25mg/3ml) Ud) 1.25 mg INH RQ8 [facility] Last Admin: 03/28/17 07:25 Dose: 1.25 mg Dexamethasone (Decadron Inj) 2 mg IV DAILY [facility] Last Admin: 03/28/17 12:18 Dose: 2 mg Dextrose (Dextrose 50% Inj) 0 ml IVP .STAT PRN; Protocol PRN Reason: Hypoglycemia Protocol Last Admin: 03/14/17 06:59 Dose: 50 ml Epoetin Arturo (Procrit) 10,000 unit SC MWF [facility] Last Admin: 03/28/17 09:52 Dose: 10,000 unit Erythromycin (Erythromycin) 1 applic OD HS [facility] Last Admin: 03/27/17 21:44 Dose: 1 appl Famotidine (Pepcid) 20 mg PO DAILY [facility] Last Admin: 03/28/17 12:18 Dose: 20 mg Metronidazole (Flagyl) 500 mg in 100 mls @ 100 mls/hr IVPB Q8H [facility] Last Admin: 03/28/17 12:17 Dose: 100 mls/hr Tigecycline 50 mg/ Sodium (Chloride) 50 mls @ 100 mls/hr IVPB Q12H [facility] Last Admin: 03/28/17 12:17 Dose: 100 mls/hr Sodium Chloride (Sodium Chloride 0.45%) 1,000 mls @ 60 mls/hr IV .[id number] [facility] Last Admin: 03/28/17 03:25 Dose: Not Given Insulin Glargine (Lantus) 8 unit SC HS [facility] Last Admin: 03/27/17 21:17 Dose: 8 units Insulin Human Regular (Novolin R) 0 unit SC ACHS [facility] PRN Reason: Protocol Last Admin: 03/28/17 12:15 Dose: 1 unit Lorazepam (Ativan) 0.5 mg PO HS PRN PRN Reason: Anxiety Last Admin: 03/28/17 02:31 Dose: 0.5 mg Ofloxacin (Ocuflox Ophth 0.3%) 0 ml OD QID [facility] Last Admin: 03/28/17 09:56 Dose: 1 drop Potassium Chloride (Potassium Chloride Oral Soln) 20 meq PO BID [facility] Last Admin: 03/28/17 12:18 Dose: 20 meq Prednisolone Acetate (Pred Forte 1% Opht Susp) 0 ml OD QID [facility] Last Admin: 03/28/17 09:56 Dose: 1 drop Pyridostigmine [place] (Mestinon Tab) 60 mg PO TID [facility] Last Admin: 03/28/17 12:19 Dose: 60 mg Timolol Maleate (Timoptic 0.5% Ophth Soln) 1 drop OD BID [facility] Last Admin: 03/28/17 09:56 Dose: 1 drop - Labs Labs: 03/27/17 12:13 03/27/17 12:13 PT 17.3 SECONDS (9.7-12.2) H 03/26/17 11:49 INR 1.5 03/26/17 11:49 APTT 38 SECONDS (21-34) H 03/26/17 11:49 - Constitutional Appears: Non-toxic, Cachectic, Chronically Ill - Head Exam Head Exam: ATRAUMATIC, NORMAL INSPECTION - Neck Exam Neck Exam: Normal Inspection. absent: Tenderness - Respiratory Exam Respiratory Exam: Clear to Ausculation Bilateral, NORMAL BREATHING PATTERN - Cardiovascular Exam Cardiovascular Exam: REGULAR RHYTHM, +S1 - GI/Abdominal Exam GI & Abdominal Exam: Soft. absent: Tenderness - Extremities Exam Extremities Exam: Normal Inspection. absent: Tenderness - Neurological Exam Neurological Exam: Alert, CN II-XII Intact - Skin Skin Exam: Dry, Warm Assessment and Plan (1) Myasthenia Status: Acute (2) Other secondary thrombocytopenia Status: Acute (3) Meningioma Status: Acute (4) Hypokalemia Status: Acute (5) Carbapenem-resistant bacterial infection Status: Acute (6) Myelodysplasia (myelodysplastic syndrome) Status: Acute - Assessment and Plan (Free Text) Plan: Repeat labs Add na bicarb
--- NOTE | 2017-03-28 16:07 | CP.PCM.PN ---
Subjective - Date & Time of Evaluation Date of Evaluation: 03/28/17 Time of Evaluation: 09:00 - Subjective Subjective: s/p plasmapheresis IV antibiotics completed will reculture off antibiotics Objective - Vital Signs/Intake and Output Vital Signs (last 24 hours): Temp Pulse Resp BP Pulse Ox 97.2 F L 62 20 151/65 H 100 03/28/17 00:00 03/28/17 02:30 03/28/17 02:30 03/28/17 02:30 03/28/17 02:30 Intake and Output: 03/28/17 03/28/17 06:59 18:59 Intake Total 630 840 Output Total 1 Balance 630 839 - Medications Medications: Current Medications Albuterol Sulfate (Albuterol 0.042% Inhal Tricia (1.25mg/3ml) Ud) 1.25 mg INH RTID [facility] Dexamethasone (Decadron Inj) 2 mg IV DAILY [facility] Last Admin: 03/28/17 12:18 Dose: 2 mg Dextrose (Dextrose 50% Inj) 0 ml IVP .STAT PRN; Protocol PRN Reason: Hypoglycemia Protocol Last Admin: 03/14/17 06:59 Dose: 50 ml Epoetin Arturo (Procrit) 10,000 unit SC MWF [facility] Last Admin: 03/28/17 09:52 Dose: 10,000 unit Erythromycin (Erythromycin) 1 applic OD HS [facility] Last Admin: 03/27/17 21:44 Dose: 1 appl Famotidine (Pepcid) 20 mg PO DAILY [facility] Last Admin: 03/28/17 12:18 Dose: 20 mg Metronidazole (Flagyl) 500 mg in 100 mls @ 100 mls/hr IVPB Q8H [facility] Last Admin: 03/28/17 12:17 Dose: 100 mls/hr Tigecycline 50 mg/ Sodium (Chloride) 50 mls @ 100 mls/hr IVPB Q12H [facility] Last Admin: 03/28/17 12:17 Dose: 100 mls/hr Sodium Chloride (Sodium Chloride 0.45%) 1,000 mls @ 60 mls/hr IV .[id number] [facility] Last Admin: 03/28/17 03:25 Dose: Not Given Insulin Glargine (Lantus) 8 unit SC HS [facility] Last Admin: 03/27/17 21:17 Dose: 8 units Insulin Human Regular (Novolin R) 0 unit SC ACHS [facility] PRN Reason: Protocol Last Admin: 03/28/17 12:15 Dose: 1 unit Lorazepam (Ativan) 0.5 mg PO HS PRN PRN Reason: Anxiety Last Admin: 03/28/17 02:31 Dose: 0.5 mg Ofloxacin (Ocuflox Ophth 0.3%) 0 ml OD QID [facility] Last Admin: 03/28/17 13:33 Dose: 1 drop Potassium Chloride (Potassium Chloride Oral Soln) 20 meq PO BID [facility] Last Admin: 03/28/17 12:18 Dose: 20 meq Prednisolone Acetate (Pred Forte 1% Opht Susp) 0 ml OD QID [facility] Last Admin: 03/28/17 13:32 Dose: 1 drop Pyridostigmine [place] (Mestinon Tab) 60 mg PO TID [facility] Last Admin: 03/28/17 13:32 Dose: 60 mg Sodium Bicarbonate (Sodium Bicarbonate Tab) 650 mg PO BID [facility] Timolol Maleate (Timoptic 0.5% Ophth Soln) 1 drop OD BID [facility] Last Admin: 03/28/17 09:56 Dose: 1 drop - Labs Labs: 03/27/17 12:13 03/27/17 12:13 PT 17.3 SECONDS (9.7-12.2) H 03/26/17 11:49 INR 1.5 03/26/17 11:49 APTT 38 SECONDS (21-34) H 03/26/17 11:49 - Constitutional Appears: Non-toxic, Chronically Ill - Head Exam Head Exam: NORMOCEPHALIC - Eye Exam Eye Exam: PERRL - ENT Exam ENT Exam: Mucous Membranes Dry - Neck Exam Neck Exam: absent: Lymphadenopathy - Respiratory Exam Respiratory Exam: Decreased Breath Sounds - Cardiovascular Exam Cardiovascular Exam: REGULAR RHYTHM Assessment and Plan (1) Myelodysplasia (myelodysplastic syndrome) Status: Acute (2) Severe anemia Status: Acute (3) Acute on chronic diastolic (congestive) heart failure Status: Acute (4) Anemia Status: Acute (5) Degenerative disc disease at L5-S1 level Status: Acute (6) Dehydration Status: Acute (7) Diabetes mellitus type 2 in obese Status: Acute (8) Carbapenem-resistant bacterial infection Status: Acute (9) Carbapenem-resistant bacterial infection Status: Acute
[2017-03-28] MEDS: Erythromycin 0.5% Ophth Oint 1 APPLIC/3.5 G OD SCH (21:19)
[2017-03-28] MEDS: (Lantus) Insulin Glargine, Recombinant SC SCH (21:19)
--- NOTE | 2017-03-28 22:48 | CP.PCM.PN ---
Subjective - Date & Time of Evaluation Date of Evaluation: 03/28/17 Time of Evaluation: 13:25 - Subjective Subjective: Paient still weak and fatigued. She tolerated plasmaphoresis. Platlets at 40,000. Will repeat labs in AM. Objective - Vital Signs/Intake and Output Vital Signs (last 24 hours): Temp Pulse Resp BP Pulse Ox 97.2 F L 55 L 20 145/78 100 03/28/17 00:00 03/28/17 15:00 03/28/17 15:00 03/28/17 15:00 03/28/17 15:00 Intake and Output: 03/28/17 03/29/17 18:59 06:59 Intake Total 840 Output Total 1 Balance 839 - Medications Medications: Current Medications Albuterol Sulfate (Albuterol 0.042% Inhal Tricia (1.25mg/3ml) Ud) 1.25 mg INH RTID [facility] Last Admin: 03/28/17 19:51 Dose: 1.25 mg Dexamethasone (Decadron Inj) 2 mg IV DAILY [facility] Last Admin: 03/28/17 12:18 Dose: 2 mg Dextrose (Dextrose 50% Inj) 0 ml IVP .STAT PRN; Protocol PRN Reason: Hypoglycemia Protocol Last Admin: 03/14/17 06:59 Dose: 50 ml Epoetin Arturo (Procrit) 10,000 unit SC MWF [facility] Last Admin: 03/28/17 09:52 Dose: 10,000 unit Erythromycin (Erythromycin) 1 applic OD HS [facility] Last Admin: 03/28/17 21:19 Dose: 1 appl Famotidine (Pepcid) 20 mg PO DAILY [facility] Last Admin: 03/28/17 12:18 Dose: 20 mg Metronidazole (Flagyl) 500 mg in 100 mls @ 100 mls/hr IVPB Q8H [facility] Last Admin: 03/28/17 17:44 Dose: 100 mls/hr Sodium Chloride (Sodium Chloride 0.45%) 1,000 mls @ 60 mls/hr IV .[id number] [facility] Last Admin: 03/28/17 20:05 Dose: Not Given Insulin Glargine (Lantus) 8 unit SC HS [facility] Last Admin: 03/28/17 21:19 Dose: 8 units Insulin Human Regular (Novolin R) 0 unit SC ACHS [facility] PRN Reason: Protocol Last Admin: 03/28/17 21:20 Dose: Not Given Lorazepam (Ativan) 0.5 mg PO HS PRN PRN Reason: Anxiety Last Admin: 03/28/17 02:31 Dose: 0.5 mg Ofloxacin (Ocuflox Ophth 0.3%) 0 ml OD QID [facility] Last Admin: 03/28/17 21:20 Dose: 1 drop Potassium Chloride (Potassium Chloride Oral Soln) 20 meq PO BID [facility] Last Admin: 03/28/17 17:58 Dose: 20 meq Prednisolone Acetate (Pred Forte 1% Opht Susp) 0 ml OD QID [facility] Last Admin: 03/28/17 21:21 Dose: 1 drop Pyridostigmine [place] (Mestinon Tab) 60 mg PO TID [facility] Last Admin: 03/28/17 17:46 Dose: 60 mg Sodium Bicarbonate (Sodium Bicarbonate Tab) 650 mg PO BID [facility] Last Admin: 03/28/17 17:58 Dose: 650 mg Timolol Maleate (Timoptic 0.5% Ophth Soln) 1 drop OD BID [facility] Last Admin: 03/28/17 17:51 Dose: 1 drop - Labs Labs: 03/27/17 12:13 03/27/17 12:13 PT 17.3 SECONDS (9.7-12.2) H 03/26/17 11:49 INR 1.5 03/26/17 11:49 APTT 38 SECONDS (21-34) H 03/26/17 11:49 - Constitutional Appears: Chronically Ill - Head Exam Head Exam: NORMOCEPHALIC - Eye Exam Eye Exam: Normal appearance Pupil Exam: NORMAL ACCOMODATION - ENT Exam ENT Exam: Normal Exam - Neck Exam Neck Exam: absent: Normal Inspection - Respiratory Exam Respiratory Exam: Decreased Breath Sounds - Cardiovascular Exam Cardiovascular Exam: REGULAR RHYTHM - GI/Abdominal Exam GI & Abdominal Exam: Hyperactive Bowel Sounds - Rectal Exam Rectal Exam: Deferred - Exam External exam: NORMAL EXTERNAL EXAM - Back Exam Back Exam: NORMAL INSPECTION - Neurological Exam Neurological Exam: Altered - Psychiatric Exam Psychiatric exam: Depressed - Skin Skin Exam: Dry Assessment and Plan (1) Myelodysplasia (myelodysplastic syndrome) Status: Acute (2) Severe anemia Status: Acute (3) Degenerative disc disease at L5-S1 level Status: Acute (4) Osteoarthritis Status: Acute (5) Thrombocytopenia Status: Acute (6) Sepsis Status: Acute (7) Carbapenem-resistant bacterial infection Status: Acute (8) Meningioma Status: Acute (9) Myasthenia Status: Acute
[2017-03-29] MEDS: metroNIDAZOLE IV 500 mg/100 ml 500 MG/100 ML BAG IVPB SCH ×3 (01:00→17:25)
[2017-03-29] MEDS: Albuterol 0.042% Inhal Sol (1.25 mg/3 mL) UD INH SCH ×3 (07:37→19:13)
--- NOTE | 2017-03-29 07:46 | PN ---
DATE: 03/28/2017 NEUROLOGIC PROBLEM: Myasthenia gravis, incidental meningioma. PHYSICAL EXAMINATION: VITAL SIGNS: Blood pressure 151/65, mean arterial pressure of 93, respiratory rate 16, temperature afebrile. NEUROLOGIC: The patient is lethargic, arousable on calling her name. Speech is intact. Moving all 4 extremities. The patient is getting plasmapheresis as scheduled. Following plasmapheresis, the patient is scheduled to have intravenous immunoglobulin that will be recommended following plasmapheresis change. Changing her mental status, I would like to repeat the electroencephalogram to rule out any seizures secondary to her space occupying lesion. Javad Cota MD
--- NOTE | 2017-03-29 07:48 | PN ---
DATE: SUBJECTIVE: Patient is in bed, is lethargic and wakeful. PHYSICAL EXAMINATION: VITAL SIGNS: She is afebrile. Blood pressure 166/82, pulse rate 66, respirations 20, hemoglobin oxygen saturation of 100%. HEART: Regular with no gallop rhythm. LUNGS: Diminished breath sounds over lung bases. Rhonchi decreased. ABDOMEN: Soft. EXTREMITIES: Legs, minimal edema. LABORATORY DATA: Her white count is 29,500, hemoglobin 7.3, and platelet count 40,000. Blood sugar today is 189. IMPRESSION: Respiratory insufficiency, sepsis, pneumonitis, hypertensive cardiovascular disease with congestive heart failure, severe anemia, thrombocytopenia, myelodysplasia, diabetes mellitus, electrolyte imbalance, arthritis. Patient was seen by Hematology-Oncology, Neurology and Infectious Disease specialists. PLAN: To continue with antibiotics as per ID and therapy as noted by heme-onc and neurologist. Continue with albuterol aerosol nebulizer and oxygen therapy Abundio Silva MD
[2017-03-29] MEDS: (Novolin R) Insulin Human Regular 100 units/ml vial SC SCH ×4 (08:42→21:44)
[2017-03-29] MEDS: Sodium Chloride 0.45% 1,000 ML IV SCH ×2 (08:44→13:31)
[2017-03-29] MEDS: Potassium Chloride 20 mEq/15 ml LIQ UD PO SCH ×2 (09:47→17:23)
[2017-03-29] MEDS: Dexamethasone 4 mg/1 ml IV SCH (09:48)
[2017-03-29] MEDS: Ofloxacin 0.3% Ophth Soln OD SCH ×2 (09:48→13:28)
[2017-03-29] MEDS: PrednisoLONE 1% Opht Susp(5 ml) OD SCH ×2 (09:49→13:28)
--- NOTE | 2017-03-29 10:14 | CP.PCM.PN ---
Subjective - Date & Time of Evaluation Date of Evaluation: 03/29/17 Time of Evaluation: 10:10 - Subjective Subjective: Feels about same; sl stronger Finished plasmapheresis for myasthenia- 5 treatments Await repeat chemistries Na bicarb started Objective - Vital Signs/Intake and Output Vital Signs (last 24 hours): Temp Pulse Resp BP Pulse Ox 96 F L 67 20 138/77 100 03/29/17 08:00 03/29/17 08:00 03/29/17 08:00 03/29/17 08:00 03/29/17 08:00 Intake and Output: 03/29/17 03/29/17 06:59 18:59 Intake Total 1400 Output Total 1 Balance 1399 - Medications Medications: Current Medications Albuterol Sulfate (Albuterol 0.042% Inhal Tricia (1.25mg/3ml) Ud) 1.25 mg INH RTID [facility] Last Admin: 03/29/17 07:37 Dose: Not Given Dexamethasone (Decadron Inj) 2 mg IV DAILY [facility] Last Admin: 03/29/17 09:48 Dose: 2 mg Dextrose (Dextrose 50% Inj) 0 ml IVP .STAT PRN; Protocol PRN Reason: Hypoglycemia Protocol Last Admin: 03/14/17 06:59 Dose: 50 ml Epoetin Arturo (Procrit) 10,000 unit SC MWF [facility] Last Admin: 03/28/17 09:52 Dose: 10,000 unit Erythromycin (Erythromycin) 1 applic OD HS [facility] Last Admin: 03/28/17 21:19 Dose: 1 appl Famotidine (Pepcid) 20 mg PO DAILY [facility] Last Admin: 03/29/17 09:48 Dose: 20 mg Metronidazole (Flagyl) 500 mg in 100 mls @ 100 mls/hr IVPB Q8H [facility] Last Admin: 03/29/17 01:00 Dose: 100 mls/hr Sodium Chloride (Sodium Chloride 0.45%) 1,000 mls @ 60 mls/hr IV .[id number] [facility] Last Admin: 03/29/17 08:44 Dose: 60 mls/hr Insulin Glargine (Lantus) 8 unit SC HS [facility] Last Admin: 03/28/17 21:19 Dose: 8 units Insulin Human Regular (Novolin R) 0 unit SC ACHS [facility] PRN Reason: Protocol Last Admin: 03/29/17 08:42 Dose: 2 unit Lorazepam (Ativan) 0.5 mg PO HS PRN PRN Reason: Anxiety Last Admin: 03/28/17 02:31 Dose: 0.5 mg Ofloxacin (Ocuflox Ophth 0.3%) 0 ml OD QID [facility] Last Admin: 03/29/17 09:48 Dose: 1 drop Potassium Chloride (Potassium Chloride Oral Soln) 20 meq PO BID [facility] Last Admin: 03/29/17 09:47 Dose: 20 meq Prednisolone Acetate (Pred Forte 1% Opht Susp) 0 ml OD QID [facility] Last Admin: 03/29/17 09:49 Dose: 1 drop Pyridostigmine [place] (Mestinon Tab) 60 mg PO TID [facility] Last Admin: 03/29/17 09:50 Dose: 60 mg Sodium Bicarbonate (Sodium Bicarbonate Tab) 650 mg PO BID [facility] Last Admin: 03/29/17 09:47 Dose: 650 mg Timolol Maleate (Timoptic 0.5% Ophth Soln) 1 drop OD BID [facility] Last Admin: 03/29/17 09:49 Dose: 1 drop - Labs Labs: 03/27/17 12:13 03/27/17 12:13 PT 17.3 SECONDS (9.7-12.2) H 03/26/17 11:49 INR 1.5 03/26/17 11:49 APTT 38 SECONDS (21-34) H 03/26/17 11:49 - Constitutional Appears: No Acute Distress, Chronically Ill - Head Exam Head Exam: ATRAUMATIC, NORMAL INSPECTION - Eye Exam Eye Exam: Periorbital swelling, Periorbital tenderness - Neck Exam Neck Exam: Normal Inspection. absent: Tenderness - Respiratory Exam Respiratory Exam: Clear to Ausculation Bilateral, NORMAL BREATHING PATTERN - Cardiovascular Exam Cardiovascular Exam: REGULAR RHYTHM, +S1 - GI/Abdominal Exam GI & Abdominal Exam: Soft. absent: Tenderness - Extremities Exam Extremities Exam: Normal Inspection, Tenderness. absent: Pedal Edema - Neurological Exam Neurological Exam: Alert, CN II-XII Intact - Skin Skin Exam: Dry, Warm Assessment and Plan (1) Myasthenia Status: Acute (2) Other secondary thrombocytopenia Status: Acute (3) Meningioma Status: Acute (4) Hypokalemia Status: Acute (5) Carbapenem-resistant bacterial infection Status: Acute (6) Myelodysplasia (myelodysplastic syndrome) Status: Acute - Assessment and Plan (Free Text) Plan: follow up labs monitor strength same na bicarb for now
--- NOTE | 2017-03-29 13:43 | CP.PCM.PN ---
Subjective - Date & Time of Evaluation Date of Evaluation: 03/29/17 Time of Evaluation: 13:40 - Subjective Subjective: Podiatry Progress Note- Dr. Thompson: 76 yo patient seen at bedside today for f/u of chronic right heel ulceration. Seen resting in bed with offloading boots in place. Patient is in NAD and is AAOx3. . Patient denies any pain or discomfort to b/l lower extremities and states that she has pain in her legs when moved around to change dressing. Patient denies of any other complains at this time. Objective - Vital Signs/Intake and Output Vital Signs (last 24 hours): Temp Pulse Resp BP Pulse Ox 96 F L 67 20 138/77 100 03/29/17 08:00 03/29/17 08:00 03/29/17 08:00 03/29/17 08:00 03/29/17 08:00 Intake and Output: 03/29/17 03/29/17 06:59 18:59 Intake Total 1400 Output Total 1 Balance 1399 - Medications Medications: Current Medications Albuterol Sulfate (Albuterol 0.042% Inhal Tricia (1.25mg/3ml) Ud) 1.25 mg INH RTID [facility] Last Admin: 03/29/17 07:37 Dose: Not Given Dexamethasone (Decadron Inj) 2 mg IV DAILY [facility] Last Admin: 03/29/17 09:48 Dose: 2 mg Dextrose (Dextrose 50% Inj) 0 ml IVP .STAT PRN; Protocol PRN Reason: Hypoglycemia Protocol Last Admin: 03/14/17 06:59 Dose: 50 ml Epoetin Arturo (Procrit) 10,000 unit SC MWF [facility] Last Admin: 03/28/17 09:52 Dose: 10,000 unit Erythromycin (Erythromycin) 1 applic OD HS [facility] Last Admin: 03/28/17 21:19 Dose: 1 appl Famotidine (Pepcid) 20 mg PO DAILY [facility] Last Admin: 03/29/17 09:48 Dose: 20 mg Metronidazole (Flagyl) 500 mg in 100 mls @ 100 mls/hr IVPB Q8H [facility] Last Admin: 03/29/17 10:13 Dose: 100 mls/hr Sodium Chloride (Sodium Chloride 0.45%) 1,000 mls @ 60 mls/hr IV .[id number] [facility] Last Admin: 03/29/17 13:31 Dose: Not Given Insulin Glargine (Lantus) 8 unit SC HS [facility] Last Admin: 03/28/17 21:19 Dose: 8 units Insulin Human Regular (Novolin R) 0 unit SC ACHS [facility] PRN Reason: Protocol Last Admin: 03/29/17 12:25 Dose: Not Given Lorazepam (Ativan) 0.5 mg PO HS PRN PRN Reason: Anxiety Last Admin: 03/28/17 02:31 Dose: 0.5 mg Ofloxacin (Ocuflox Ophth 0.3%) 0 ml OD QID [facility] Last Admin: 03/29/17 13:28 Dose: 1 drop Potassium Chloride (Potassium Chloride Oral Soln) 20 meq PO BID [facility] Last Admin: 03/29/17 09:47 Dose: 20 meq Prednisolone Acetate (Pred Forte 1% Opht Susp) 0 ml OD QID [facility] Last Admin: 03/29/17 13:28 Dose: 1 drop Pyridostigmine [place] (Mestinon Tab) 60 mg PO TID [facility] Last Admin: 03/29/17 13:28 Dose: 60 mg Sodium Bicarbonate (Sodium Bicarbonate Tab) 650 mg PO BID [facility] Last Admin: 03/29/17 09:47 Dose: 650 mg Timolol Maleate (Timoptic 0.5% Ophth Soln) 1 drop OD BID [facility] Last Admin: 03/29/17 09:49 Dose: 1 drop - Labs Labs: 03/27/17 12:13 03/27/17 12:13 PT 17.3 SECONDS (9.7-12.2) H 03/26/17 11:49 INR 1.5 03/26/17 11:49 APTT 38 SECONDS (21-34) H 03/26/17 11:49 - Constitutional Appears: Well, Non-toxic, No Acute Distress - Extremities Exam Additional comments: BL lower ext exam: VASC- pedal pulses faintly palpable, cft >4 sec to all digits, chronic lymphadema DERM: Optifoam are intact bilaterally. Right plantar central heel hyperkeratotic lesion noted. No signs of deep tissue injury bilaterally. NEURO- pedal sensation somewhat diminished ORTHO- slight tenderness to palp bl heels - Neurological Exam Neurological Exam: Alert, Awake, Oriented x3 - Psychiatric Exam Psychiatric exam: Normal Mood Assessment and Plan - Assessment and Plan (Free Text) Assessment: 76 yo female patient w/ chronic lymphadema to lower extremities, resolved right foot ulcer, resolved deep tissue injury. Plan: Patient seen and evaluated at bedside Plan discussed with Dr. Thompson Optifoam removed from heels bilaterally. c/w offloading heel boots stable per podiatry, will monitor
--- NOTE | 2017-03-29 14:46 | PN ---
DATE: SUBJECTIVE: Patient is awake and alert, in bed with no acute distress. She feels tired. PHYSICAL EXAMINATION: VITAL SIGNS: She is afebrile with blood pressure 138/76, pulse 66, respirations 20, hemoglobin oxygen saturation 100% on O2 via nasal cannula. HEART: Regular with no gallop rhythm. LUNGS: Diminished breath sounds over the lung bases. Rhonchi decreased. ABDOMEN: Soft. EXTREMITIES: Legs show some ankle edema and there is dermatosis with hyperpigmented scales on both lower legs. LABORATORY DATA: Her blood sugar is 244. We will repeat chest x-ray and lab studies. IMPRESSION: Severe anemia, severe thrombocytopenia, myelodysplasia syndrome, diabetes mellitus, sepsis, arthralgia, chronic obstructive pulmonary disease, debility. PLAN: To continue followup with Heme-Onc, Infectious Disease, neurologist, and attic fans mechanic and continue with current medications and current measures. Abundio Silva MD
[2017-03-29] MEDS: (Lantus) Insulin Glargine, Recombinant SC SCH (22:21)
[2017-03-29] MEDS: Erythromycin 0.5% Ophth Oint 1 APPLIC/3.5 G OD SCH (22:22)
--- NOTE | 2017-03-29 22:43 | CP.PCM.PN ---
Subjective - Date & Time of Evaluation Date of Evaluation: 03/29/17 Time of Evaluation: 13:25 - Subjective Subjective: Patient complete last plasmaphoresis. She is mildly confused. She claims her children have not been to the hospital to visit. Will repeat labs in AM. Objective - Vital Signs/Intake and Output Vital Signs (last 24 hours): Temp Pulse Resp BP Pulse Ox 98.5 F 65 20 141/83 100 03/29/17 15:00 03/29/17 15:00 03/29/17 15:00 03/29/17 15:00 03/29/17 15:00 Intake and Output: 03/29/17 03/30/17 18:59 06:59 Intake Total 730 780 Balance 730 780 - Medications Medications: Current Medications Albuterol Sulfate (Albuterol 0.042% Inhal Tricia (1.25mg/3ml) Ud) 1.25 mg INH RTID [facility] Last Admin: 03/29/17 19:13 Dose: 1.25 mg Dexamethasone (Decadron Inj) 2 mg IV DAILY [facility] Last Admin: 03/29/17 09:48 Dose: 2 mg Dextrose (Dextrose 50% Inj) 0 ml IVP .STAT PRN; Protocol PRN Reason: Hypoglycemia Protocol Last Admin: 03/14/17 06:59 Dose: 50 ml Epoetin Arturo (Procrit) 10,000 unit SC MWF [facility] Last Admin: 03/28/17 09:52 Dose: 10,000 unit Erythromycin (Erythromycin) 1 applic OD [facility] Last Admin: 03/29/17 22:22 Dose: 1 appl Famotidine (Pepcid) 20 mg PO DAILY [facility] Last Admin: 03/29/17 09:48 Dose: 20 mg Metronidazole (Flagyl) 500 mg in 100 mls @ 100 mls/hr IVPB Q8H [facility] Last Admin: 03/29/17 17:25 Dose: 100 mls/hr Sodium Chloride (Sodium Chloride 0.45%) 1,000 mls @ 60 mls/hr IV .[id number] [facility] Last Admin: 03/29/17 13:31 Dose: Not Given Immune Globulin (Octagam 5%) 30 gm IV ONCE [facility] Stop: 04/03/17 10:01 Insulin Glargine (Lantus) 8 unit SC [facility] Last Admin: 03/29/17 22:21 Dose: 8 units Insulin Human Regular (Novolin R) 0 unit SC ACHS [facility] PRN Reason: Protocol Last Admin: 03/29/17 21:44 Dose: Not Given Levetiracetam (Keppra) 500 mg PO BID [facility] Lorazepam (Ativan) 0.5 mg PO HS PRN PRN Reason: Anxiety Last Admin: 03/28/17 02:31 Dose: 0.5 mg Potassium Chloride (Potassium Chloride Oral Soln) 20 meq PO BID [facility] Last Admin: 03/29/17 17:23 Dose: 20 meq Pyridostigmine [place] (Mestinon Tab) 60 mg PO TID [facility] Last Admin: 03/29/17 17:24 Dose: 60 mg Sodium Bicarbonate (Sodium Bicarbonate Tab) 650 mg PO BID [facility] Last Admin: 03/29/17 17:23 Dose: 650 mg - Labs Labs: 03/27/17 12:13 03/27/17 12:13 PT 17.3 SECONDS (9.7-12.2) H 03/26/17 11:49 INR 1.5 03/26/17 11:49 APTT 38 SECONDS (21-34) H 03/26/17 11:49 - Constitutional Appears: Chronically Ill - Head Exam Head Exam: NORMOCEPHALIC - Eye Exam Eye Exam: Normal appearance Pupil Exam: NORMAL ACCOMODATION - ENT Exam ENT Exam: Normal Exam - Neck Exam Neck Exam: Normal Inspection - Respiratory Exam Respiratory Exam: Decreased Breath Sounds - Cardiovascular Exam Cardiovascular Exam: REGULAR RHYTHM - GI/Abdominal Exam GI & Abdominal Exam: Hyperactive Bowel Sounds - Rectal Exam Rectal Exam: Deferred - Exam External exam: NORMAL EXTERNAL EXAM - Extremities Exam Extremities Exam: Tenderness - Back Exam Back Exam: NORMAL INSPECTION - Neurological Exam Neurological Exam: Altered - Psychiatric Exam Psychiatric exam: Depressed - Skin Skin Exam: Dry Assessment and Plan (1) Myelodysplasia (myelodysplastic syndrome) Status: Acute (2) Severe anemia Status: Acute (3) Degenerative disc disease at L5-S1 level Status: Acute (4) Osteoarthritis Status: Acute (5) Thrombocytopenia Status: Acute (6) Sepsis Status: Acute (7) Carbapenem-resistant bacterial infection Status: Acute (8) Meningioma Status: Acute (9) Myasthenia Status: Acute
[2017-03-30] MEDS: metroNIDAZOLE IV 500 mg/100 ml 500 MG/100 ML BAG IVPB SCH ×3 (01:02→17:19)
[2017-03-30] MEDS: (Novolin R) Insulin Human Regular 100 units/ml vial SC SCH ×4 (07:35→21:44)
[2017-03-30] MEDS: Albuterol 0.042% Inhal Sol (1.25 mg/3 mL) UD INH SCH ×3 (07:35→19:38)
--- NOTE | 2017-03-30 07:53 | PN ---
DATE: 03/30/2017 NEUROLOGICAL PROBLEM: Myasthenia gravis. PHYSICAL EXAMINATION: VITAL SIGNS: Blood pressure 136/76, mean arterial pressure of 96, respiratory rate 20, temperature 98.2, pulse rate 65. NEUROLOGIC: The patient status post plasma exchange. The patient is examined. The patient is awake alert. Right eye is wide opened. Very mild ptosis noted. She could be able to lift her head off the bed. Still persistent bilateral proximal muscle weakness noted. Easily we could break her resistance. ASSESSMENT AND PLAN: The patient is scheduled to have immunoglobulin with the dose of 0.4 g/kg for 5 days. Following this, the patient can be moved to rehabilitation. Continue Mestinon dose as she has been getting. Electroencephalogram had been reviewed, it showed polyspike and awake activities noted which consistent with seizures. This is probably secondary to her intracranial lesion, which may be the epileptogenic. At this point, the patient is given Keppra, she is tolerating well last night. Continue Keppra for now for her seizures. Javad Cota MD
[2017-03-30] MEDS: Dexamethasone 4 mg/1 ml IV SCH (09:33)
[2017-03-30] MEDS: EPOETIN ALFA 10,000 UNIT/ML ML SC SCH (09:34)
[2017-03-30] MEDS: Potassium Chloride 20 mEq/15 ml LIQ UD PO SCH ×2 (09:34→17:21)
--- NOTE | 2017-03-30 14:08 | PN ---
SUBJECTIVE: The patient is alert, in bed. She is tired and weak. PHYSICAL EXAMINATION VITAL SIGNS: She is afebrile. Blood pressure 132/64, pulse 73, respirations 20, hemoglobin oxygen saturation of 96%. GENERAL: She is not in acute distress. Lying in semi-Marshall position in her bed. HEART: Regular. There is no gallop rhythm. LUNGS: Revealed diminished breath sounds over the lung bases. Rhonchi are decreased. ABDOMEN: Soft. EXTREMITIES: Legs continued to show minimal swelling of the ankle and dermatosis with hyperpigmented skin of the lower legs. LABORATORY DATA: Her blood sugar today is 269. MEDICATIONS: She continues to be on medications including bronchodilators, antibiotics, and antidiabetic medications, oxygen. Heme-Onc followup along with followup by ID, Nephrology, and Neurology. 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 PLAN: To continue with the treatment ordered and current measures. Lab tests have been ordered and await results. Chest x-ray report is yet to come and we are also waiting for reports on serum, vitamin B12 level, folate level, and vitamin D level. Abundio Silva MD MTDDagmar
--- NOTE | 2017-03-30 14:19 | RAD ---
HISTORY: chf COMPARISON: 03/26/2017 FINDINGS: LUNGS: Persistent right upper lobe opacity. Mild improvement in left perihilar opacity. PLEURA: Probable very small left pleural effusion. No right pleural effusion. No pneumothorax. CARDIOVASCULAR: Normal heart size. Central venous dialysis catheter unchanged. No significant congestive change. OSSEOUS STRUCTURES: No significant abnormalities. VISUALIZED UPPER ABDOMEN: Normal. OTHER FINDINGS: None. IMPRESSION: Persistent right upper lobe opacity. Improvement of left perihilar opacity. Probable small left pleural effusion.
--- NOTE | 2017-03-30 14:29 | CP.PCM.PN ---
Subjective - Date & Time of Evaluation Date of Evaluation: 03/30/17 Time of Evaluation: 14:26 - Subjective Subjective: awake, alert, confused at times still weak, poor appetite not been able to obtain labs BP stable Objective - Vital Signs/Intake and Output Vital Signs (last 24 hours): Temp Pulse Resp BP Pulse Ox 97.2 F L 73 20 132/65 96 03/30/17 07:52 03/30/17 07:52 03/30/17 07:52 03/30/17 07:52 03/30/17 07:52 Intake and Output: 03/30/17 03/30/17 06:59 18:59 Intake Total 780 Balance 780 - Medications Medications: Current Medications Albuterol Sulfate (Albuterol 0.042% Inhal Tricia (1.25mg/3ml) Ud) 1.25 mg INH RTID [facility] Last Admin: 03/30/17 13:40 Dose: 1.25 mg Dexamethasone (Decadron Inj) 2 mg IV DAILY [facility] Last Admin: 03/30/17 09:33 Dose: 2 mg Dextrose (Dextrose 50% Inj) 0 ml IVP .STAT PRN; Protocol PRN Reason: Hypoglycemia Protocol Last Admin: 03/14/17 06:59 Dose: 50 ml Epoetin Arturo (Procrit) 10,000 unit SC MWF [facility] Last Admin: 03/30/17 09:34 Dose: 10,000 unit Erythromycin (Erythromycin) 1 applic OD HS [facility] Last Admin: 03/29/17 22:22 Dose: 1 appl Famotidine (Pepcid) 20 mg PO DAILY [facility] Last Admin: 03/30/17 09:33 Dose: 20 mg Metronidazole (Flagyl) 500 mg in 100 mls @ 100 mls/hr IVPB Q8H [facility] Last Admin: 03/30/17 09:31 Dose: 100 mls/hr Immune Globulin (Octagam 5%) 30 gm IV ONCE [facility] Stop: 04/03/17 10:01 Insulin Glargine (Lantus) 8 unit SC HS [facility] Last Admin: 03/29/17 22:21 Dose: 8 units Insulin Human Regular (Novolin R) 0 unit SC ACHS [facility] PRN Reason: Protocol Last Admin: 03/30/17 11:44 Dose: Not Given Levetiracetam (Keppra) 500 mg PO BID [facility] Last Admin: 03/30/17 09:37 Dose: 500 mg Lorazepam (Ativan) 0.5 mg PO HS PRN PRN Reason: Anxiety Last Admin: 03/28/17 02:31 Dose: 0.5 mg Potassium Chloride (Potassium Chloride Oral Soln) 20 meq PO BID [facility] Last Admin: 03/30/17 09:34 Dose: 20 meq Pyridostigmine [place] (Mestinon Tab) 60 mg PO TID [facility] Last Admin: 03/30/17 13:53 Dose: 60 mg Sodium Bicarbonate (Sodium Bicarbonate Tab) 650 mg PO BID [facility] Last Admin: 03/30/17 09:33 Dose: 650 mg - Labs Labs: 03/27/17 12:13 03/27/17 12:13 PT 17.3 SECONDS (9.7-12.2) H 03/26/17 11:49 INR 1.5 03/26/17 11:49 APTT 38 SECONDS (21-34) H 03/26/17 11:49 - Constitutional Appears: No Acute Distress, Chronically Ill - Head Exam Head Exam: ATRAUMATIC, NORMAL INSPECTION - Eye Exam Eye Exam: EOMI, Normal appearance - Neck Exam Neck Exam: Normal Inspection. absent: Tenderness - Respiratory Exam Respiratory Exam: Clear to Ausculation Bilateral, NORMAL BREATHING PATTERN - Cardiovascular Exam Cardiovascular Exam: REGULAR RHYTHM, +S1 - GI/Abdominal Exam GI & Abdominal Exam: Soft. absent: Tenderness - Extremities Exam Extremities Exam: Normal Inspection. absent: Tenderness - Neurological Exam Neurological Exam: Awake, CN II-XII Intact - Skin Skin Exam: Dry, Warm Assessment and Plan (1) Myasthenia Status: Acute (2) Other secondary thrombocytopenia Status: Acute (3) Meningioma Status: Acute (4) Hypokalemia Status: Acute (5) Carbapenem-resistant bacterial infection Status: Acute (6) Myelodysplasia (myelodysplastic syndrome) Status: Acute - Assessment and Plan (Free Text) Plan: plasmapheresis done await follow up labs
--- NOTE | 2017-03-30 16:06 | CP.PCM.PN ---
Subjective - Date & Time of Evaluation Date of Evaluation: 03/30/17 Time of Evaluation: 08:00 - Subjective Subjective: afebrile all recent cultures neg needs port placement Objective - Vital Signs/Intake and Output Vital Signs (last 24 hours): Temp Pulse Resp BP Pulse Ox 97.2 F L 73 20 132/65 96 03/30/17 07:52 03/30/17 07:52 03/30/17 07:52 03/30/17 07:52 03/30/17 07:52 Intake and Output: 03/30/17 03/30/17 06:59 18:59 Intake Total 780 720 Balance 780 720 - Medications Medications: Current Medications Albuterol Sulfate (Albuterol 0.042% Inhal Tricia (1.25mg/3ml) Ud) 1.25 mg INH RTID [facility] Last Admin: 03/30/17 13:40 Dose: 1.25 mg Dexamethasone (Decadron Inj) 2 mg IV DAILY [facility] Last Admin: 03/30/17 09:33 Dose: 2 mg Dextrose (Dextrose 50% Inj) 0 ml IVP .STAT PRN; Protocol PRN Reason: Hypoglycemia Protocol Last Admin: 03/14/17 06:59 Dose: 50 ml Epoetin Arturo (Procrit) 10,000 unit SC MWF [facility] Last Admin: 03/30/17 09:34 Dose: 10,000 unit Erythromycin (Erythromycin) 1 applic OD HS [facility] Last Admin: 03/29/17 22:22 Dose: 1 appl Famotidine (Pepcid) 20 mg PO DAILY [facility] Last Admin: 03/30/17 09:33 Dose: 20 mg Metronidazole (Flagyl) 500 mg in 100 mls @ 100 mls/hr IVPB Q8H [facility] Last Admin: 03/30/17 09:31 Dose: 100 mls/hr Immune Globulin (Octagam 5%) 30 gm IV ONCE [facility] Stop: 04/03/17 10:01 Insulin Glargine (Lantus) 8 unit SC HS [facility] Last Admin: 03/29/17 22:21 Dose: 8 units Insulin Human Regular (Novolin R) 0 unit SC ACHS [facility] PRN Reason: Protocol Last Admin: 03/30/17 11:44 Dose: Not Given Levetiracetam (Keppra) 500 mg PO BID [facility] Last Admin: 03/30/17 09:37 Dose: 500 mg Lorazepam (Ativan) 0.5 mg PO HS PRN PRN Reason: Anxiety Last Admin: 03/28/17 02:31 Dose: 0.5 mg Potassium Chloride (Potassium Chloride Oral Soln) 20 meq PO BID [facility] Last Admin: 03/30/17 09:34 Dose: 20 meq Pyridostigmine [place] (Mestinon Tab) 60 mg PO TID [facility] Last Admin: 03/30/17 13:53 Dose: 60 mg Sodium Bicarbonate (Sodium Bicarbonate Tab) 650 mg PO BID [facility] Last Admin: 03/30/17 09:33 Dose: 650 mg - Labs Labs: 03/27/17 12:13 03/27/17 12:13 PT 17.3 SECONDS (9.7-12.2) H 03/26/17 11:49 INR 1.5 03/26/17 11:49 APTT 38 SECONDS (21-34) H 03/26/17 11:49 - Constitutional Appears: Non-toxic, Chronically Ill - Head Exam Head Exam: NORMOCEPHALIC - Eye Exam Eye Exam: absent: Scleral icterus - ENT Exam ENT Exam: Mucous Membranes Dry - Neck Exam Neck Exam: absent: Lymphadenopathy - Respiratory Exam Respiratory Exam: Decreased Breath Sounds - Cardiovascular Exam Cardiovascular Exam: REGULAR RHYTHM - GI/Abdominal Exam GI & Abdominal Exam: Distended, Soft - Rectal Exam Rectal Exam: Deferred - Exam Exam: NORMAL INSPECTION Assessment and Plan (1) Myelodysplasia (myelodysplastic syndrome) Status: Acute (2) Severe anemia Status: Acute (3) Acute on chronic diastolic (congestive) heart failure Status: Acute (4) Anemia Status: Acute (5) Degenerative disc disease at L5-S1 level Status: Acute (6) Dehydration Status: Acute (7) Diabetes mellitus type 2 in obese Status: Acute (8) Carbapenem-resistant bacterial infection Status: Acute (9) Carbapenem-resistant bacterial infection Status: Acute - Assessment and Plan (Free Text) Assessment: will reculture off antibiotics
[2017-03-30] MEDS: Erythromycin 0.5% Ophth Oint 1 APPLIC/3.5 G OD SCH (21:43)
[2017-03-30] MEDS: (Lantus) Insulin Glargine, Recombinant SC SCH (21:43)
[2017-03-30] MEDS: Sodium Chloride 0.45% 1,000 ML IV SCH (21:46)
--- NOTE | 2017-03-30 22:42 | CP.PCM.PN ---
Subjective - Date & Time of Evaluation Date of Evaluation: 03/30/17 Time of Evaluation: 13:10 - Subjective Subjective: Patient confused but denies pain. Unable to do labs because of no access. Patient will need a new port. patient may benefit from IGg infusion. Objective - Vital Signs/Intake and Output Vital Signs (last 24 hours): Temp Pulse Resp BP Pulse Ox 97.2 F L 62 20 148/84 100 03/30/17 07:52 03/30/17 15:00 03/30/17 15:00 03/30/17 15:00 03/30/17 15:00 Intake and Output: 03/30/17 03/31/17 18:59 06:59 Intake Total 720 Balance 720 - Medications Medications: Current Medications Albuterol Sulfate (Albuterol 0.042% Inhal Tricia (1.25mg/3ml) Ud) 1.25 mg INH RTID [facility] Last Admin: 03/30/17 19:38 Dose: 1.25 mg Dexamethasone (Decadron Inj) 2 mg IV DAILY [facility] Last Admin: 03/30/17 09:33 Dose: 2 mg Dextrose (Dextrose 50% Inj) 0 ml IVP .STAT PRN; Protocol PRN Reason: Hypoglycemia Protocol Last Admin: 03/14/17 06:59 Dose: 50 ml Epoetin Arturo (Procrit) 10,000 unit SC MWF [facility] Last Admin: 03/30/17 09:34 Dose: 10,000 unit Erythromycin (Erythromycin) 1 applic OD HS [facility] Last Admin: 03/30/17 21:43 Dose: 1 appl Famotidine (Pepcid) 20 mg PO DAILY [facility] Last Admin: 03/30/17 09:33 Dose: 20 mg Metronidazole (Flagyl) 500 mg in 100 mls @ 100 mls/hr IVPB Q8H [facility] Last Admin: 03/30/17 17:19 Dose: 100 mls/hr Immune Globulin (Octagam 5%) 30 gm IV ONCE [facility] Stop: 04/03/17 10:01 Insulin Glargine (Lantus) 8 unit SC HS [facility] Last Admin: 03/30/17 21:43 Dose: 8 units Insulin Human Regular (Novolin R) 0 unit SC ACHS [facility] PRN Reason: Protocol Last Admin: 03/30/17 21:44 Dose: Not Given Levetiracetam (Keppra) 500 mg PO BID [facility] Last Admin: 03/30/17 17:21 Dose: 500 mg Lorazepam (Ativan) 0.5 mg PO HS PRN PRN Reason: Anxiety Last Admin: 03/30/17 21:18 Dose: 0.5 mg Potassium Chloride (Potassium Chloride Oral Soln) 20 meq PO BID [facility] Last Admin: 03/30/17 17:21 Dose: 20 meq Pyridostigmine [place] (Mestinon Tab) 60 mg PO TID [facility] Last Admin: 03/30/17 18:00 Dose: 60 mg Sodium Bicarbonate (Sodium Bicarbonate Tab) 650 mg PO BID [facility] Last Admin: 03/30/17 17:21 Dose: 650 mg - Labs Labs: 03/27/17 12:13 03/27/17 12:13 PT 17.3 SECONDS (9.7-12.2) H 03/26/17 11:49 INR 1.5 03/26/17 11:49 APTT 38 SECONDS (21-34) H 03/26/17 11:49 - Constitutional Appears: Chronically Ill - Head Exam Head Exam: NORMOCEPHALIC - Eye Exam Eye Exam: Normal appearance Pupil Exam: NORMAL ACCOMODATION - ENT Exam ENT Exam: Normal Exam - Neck Exam Neck Exam: Normal Inspection - Respiratory Exam Respiratory Exam: Decreased Breath Sounds - Cardiovascular Exam Cardiovascular Exam: REGULAR RHYTHM - GI/Abdominal Exam GI & Abdominal Exam: Hyperactive Bowel Sounds - Rectal Exam Rectal Exam: Deferred - Exam External exam: NORMAL EXTERNAL EXAM - Extremities Exam Extremities Exam: Tenderness - Back Exam Back Exam: NORMAL INSPECTION - Neurological Exam Neurological Exam: Altered - Skin Skin Exam: Dry Assessment and Plan (1) Myelodysplasia (myelodysplastic syndrome) Status: Acute (2) Severe anemia Status: Acute (3) Degenerative disc disease at L5-S1 level Status: Acute (4) Osteoarthritis Status: Acute (5) Thrombocytopenia Status: Acute (6) Sepsis Status: Acute (7) Carbapenem-resistant bacterial infection Status: Acute (8) Meningioma Status: Acute (9) Myasthenia Status: Acute
[2017-03-31] MEDS: metroNIDAZOLE IV 500 mg/100 ml 500 MG/100 ML BAG IVPB SCH ×3 (02:12→17:21)
[2017-03-31] MEDS: (Novolin R) Insulin Human Regular 100 units/ml vial SC SCH ×4 (07:30→22:33)
[2017-03-31 08:11] LABS: VENOUS BLOOD GAS BASE EXCESS -4.8 mmol/L (0.0-2.0); VENOUS BLOOD GAS PCO2 41 mmHg (40-60); VENOUS BLOOD PH 7.32 (7.32-7.43)
[2017-03-31 08:23] LABS: BASO # 0.1 K/uL (0.0-0.2); BASO % 0.3 % (0.0-2.0); EOS % 0.1 % (0.0-4.0); HEMATOCRIT 21.5 % (34.0-47.0); LYMPH # 2.6 K/uL (1.0-4.3); LYMPH % 5.7 % (20.0-40.0); MEAN CELL VOLUME 93.7 fL (81.0-99.0); MEAN CORPUSCULAR HEMOGLOBIN 29.2 pg (27.0-31.0); MEAN CORPUSCULAR HGB CONC 31.1 g/dL (33.0-37.0); MEAN PLATELET VOLUME 11.5 fL (7.2-11.7); MONO # 6.8 K/uL (0.0-0.8); MONO % 14.7 % (0.0-10.0); NRBC % 0.3 % (0.0-2.0); RED CELL DISTRIBUTION WIDTH 19.8 % (11.5-14.5)
[2017-03-31 08:29] LABS: PLATELET COUNT 10 K/uL (130-400); WHITE BLOOD COUNT 46.3 K/uL (4.8-10.8)
[2017-03-31 08:32] LABS: RBC URINE 11 /hpf (0-3); URINE BACTERIA RARE (<OCC); URINE BILIRUBIN NEGATIVE (NEGATIVE); URINE BLOOD 1+ (NEGATIVE); URINE COLOR Yellow (YELLOW); URINE GLUCOSE (UA) NORMAL (Normal); URINE KETONE NEGATIVE (NEGATIVE); URINE LEUKOCYTE ESTERASE TRACE Leu/uL (Negative); URINE PROTEIN NEGATIVE (NEGATIVE); URINE UROBILINOGEN NORMAL mg/dL (0.2-1.0); WBC URINE 3 /hpf (0-5)
[2017-03-31] MEDS: Sodium Chloride 0.9% 1,000 ML IV SCH (08:55)
[2017-03-31 08:57] LABS: ALB/GLOB RATIO 1.7 (1.0-2.1); ALKALINE PHOSPHATASE 977 U/L (38-126); ALT/SGPT 65 U/L (9-52); AST/SGOT 74 U/L (14-36); BILIRUBIN,TOTAL 2.2 mg/dL (0.2-1.3); BLOOD UREA NITROGEN 28 mg/dL (7-17); CALCIUM 8.6 mg/dl (8.6-10.4); CARBON DIOXIDE 20 mmol/L (22-30); CHLORIDE 115 mmol/L (98-107); GFR AFRICAN-AMERICAN > 60; GLUCOSE,RANDOM 102 mg/dL (65-105); MAGNESIUM 1.6 mg/dL (1.6-2.3); PHOSPHOROUS 2.3 mg/dL (2.5-4.5); POTASSIUM 4.7 mmol/L (3.6-5.2); SODIUM 141 mmol/L (132-148); TOTAL PROTEIN 4.9 g/dL (6.3-8.3)
--- NOTE | 2017-03-31 08:58 | PCM.RRT ---
<Kenny Jarvis E - Last Filed: 03/31/17 09:07> PROJECT RESERVOIR ENGINEER Nurses Assessment - Situation Date: 03/31/17 Time PROJECT RESERVOIR ENGINEER was called: 07:38 PROJECT RESERVOIR ENGINEER Location:: 3T Med/Oncology - Ventilator Settings SAO2 %: 99 I.Reason for PROJECT RESERVOIR ENGINEER - A) Acute Change in Patient: (Select all that apply): Acute change in mental status Subjective: PROJECT RESERVOIR ENGINEER was called for unresponsive and AMS at 7:30am. Patient was coughing and complaining of abdominal pain. Patient was responsive to pain stimuli and name calling and was mumbling Upon arrival to the PROJECT RESERVOIR ENGINEER, Vital sign: T: 97.3 HR: 66 BP: 122/68 Blood Sugar: 72 Physical Examination: Prominent rales in the left lung Vital signs at the end of PROJECT RESERVOIR ENGINEER: Bp: 106/84 - Neurological Status (Select all that apply): Responsive. absent: Follows Commands - Respiratory Oxygen Delivery Method: Nasal Cannula @L/min - Constitutional Appears: No Acute Distress - Eyes Eye Exam: EOMI Additional Comments: Ointment on bilateral eye lids - Respiratory Exam Respiratory Exam: Rales - Cardiovascular Exam Cardiovascular Exam: REGULAR RHYTHM, +S1, +S2 - GI/Abdominal Exam GI & Abdominal Exam: Soft, Tenderness, Normal Bowel Sounds - Neurological Exam Neurological Exam: Alert, Awake. absent: Oriented x3 - Extremities Exam Additional comments: Chronic lymphedema and resolving ulcer bilaterally Plan - Assessment of Findings&Treatment Plan 1. Altered mental status change Plan: f/u Head CT without contrast and troponin 2. R/o Sepsis Plan: lactate, CBC, CMP, Blood culture, UA, and urine culture NS @ 50mls/hr Insertion of dykes Gentamicin 80mg IVPB ONCE Vanco 1gm Once 3. R/o aspiration pneumonia Plan: Chest X-ray (03/30): Small left pleural effusion f/u Chest CT 4. Thrombocytopenia Labs (03/26/17): Platelet: 10 Platelet transfusion and (03/27/17), platelet: 44 May need more platelet transfusion 5. Anemia on admission * Has been transfused 4 units of PRBC * f/u cbc Patient's PMD was notified as well as family member, randall by Dr. godinez All plans and management discussed with Dr. Godinez during the PROJECT RESERVOIR ENGINEER <Felton Godinez H - Last Filed: 03/31/17 14:08> PROJECT RESERVOIR ENGINEER Nurses Assessment - Vital Signs Vital Signs: Rapid Response Vital Sign Blood Pressure 122/68 Pulse Rate 59 Respiratory Rate 22 Temperature 93.1 F Oxygen Saturation 100 - Vital Signs at end of PROJECT RESERVOIR ENGINEER Vital Signs at end of PROJECT RESERVOIR ENGINEER: Rapid Response End Vital Sign Blood Pressure 128/68 Pulse Rate 62 Respiratory Rate 20 Temperature 96.8 F O2 Sat by Pulse Oximetry 99 Attending/Attestation - Attestation I have personally seen and examined this patient.: Yes I have fully participated in the care of the patient.: Yes I have reviewed all pertinent clinical information, including history, physical exam and plan: Yes Notes (Text): 03/31/17 14:00 Medical Hospitalist: Patient had an PROJECT RESERVOIR ENGINEER called and we were nearby and came The patient was noted by the RNs to be alter mental state. She was visibly short of breath and she was being suctioned as I came and saw her. This is a patient with an extremely complicated medical history with MDS. She has not had blood work for 5 days due to lack of possible lab draws due to poor veins. During the PROJECT RESERVOIR ENGINEER her BP as well as HR and SpO2 were stable Fourtunately we were able to get lab draws and orders for platelets and PRBC have been given There is a high WBC - we gave one time dose of Vancomycin as well as Gentamicin. She is on IVF and a dykes was started however I should point out that possibly the MDS is causing the high WBC. It seems she previously had + blood cultures. A stat CT of the head as well as of the chest was ordered. Because of her alter state and low platelet count my initial concern was possible hemmoragic CVA as her platelcount is only 10. I spoke with the patient's PMD and I also spoke with the patient's daughter whose number was listed in the chart Overall prognosis is unfortunately not good. thank you Felton Godinez
[2017-03-31] MEDS ORDERED: Vancomycin 1 gm/NS 200 ml 1 GM/200 ML BAG IVPB ONE (09:00)
[2017-03-31] MEDS: Albuterol 0.042% Inhal Sol (1.25 mg/3 mL) UD INH SCH ×3 (09:00→19:39)
[2017-03-31] MEDS: Albumin Human 25% (12.5 gm/50 ml) IV SCH ×3 (10:00→22:34)
[2017-03-31 10:11] LABS: NEUTROPHIL 85 % (50-75); TOTAL CELLS COUNTED 100
--- NOTE | 2017-03-31 10:22 | CT ---
PROCEDURE: CT HEAD WITHOUT CONTRAST. HISTORY: AMS COMPARISON: Unenhanced head CT 03/26/2017. TECHNIQUE: Axial computed tomography images were obtained through the head/brain without intravenous contrast. Radiation dose: Total exam DLP = 948.09 mGy-cm. This CT exam was performed using one or more of the following dose reduction techniques: Automated exposure control, adjustment of the mA and/or kV according to patient size, and/or use of iterative reconstruction technique. FINDINGS: HEMORRHAGE: No intracranial hemorrhage. BRAIN: A partially calcified meningioma is again seen at the right frontal lobe base stable in size measuring 2.2 x 2.3 cm with local vasogenic edema again appreciated without significant interval change. The mass directly cause limited leftward mass effect at the medial left frontal lobe. No interval acute findings are appreciable by standard CT criteria above or below the tentorium. Age-related neuro degenerative changes are reiterated comprised of atrophy and microangiopathy once again. VENTRICLES: Unremarkable. No hydrocephalus. CALVARIUM: Unremarkable. PARANASAL SINUSES: Unremarkable as visualized. No significant inflammatory changes. MASTOID AIR CELLS: Unremarkable as visualized. No inflammatory changes. OTHER FINDINGS: None. IMPRESSION: Stable unenhanced head CT including right planum sphenoidale meningioma with significant local reaction at the right frontal lobe and trace left frontal mass effect. No definite acute intracranial findings. Age related neuro degenerative changes are reiterated. Continued clinical and potential CT follow-up are advised. MRI is available for further characterization if clinically warranted.
[2017-03-31] MEDS: Potassium Chloride 20 mEq/15 ml LIQ UD PO SCH ×3 (10:50→17:37)
--- NOTE | 2017-03-31 11:24 | CT ---
PROCEDURE: CT Chest without contrast HISTORY: pLEURAL EFFUSION COMPARISON: Chest CT without contrast 09/29/2016. TECHNIQUE: Contiguous axial images were obtained through the chest without intravenous contrast enhancement. Sagittal and coronal reconstructions were performed. Radiation dose (DLP): 695.77 mGy-cm. This CT exam was performed using one or more of the following dose reduction techniques: Automated exposure control, adjustment of the mA and/or kV according to patient size, and/or use of iterative reconstruction technique. FINDINGS: LUNGS: Limited infiltrate is questioned affecting the lingula and left lower lobe and potentially the medial right lower lobe as well. An interval 8 mm nodule is noncalcified in the left apex which follow-up CT is recommended in 6 months. MEDIASTINUM: Unremarkable thoracic aorta. No aneurysm. Cardiomegaly is appreciated once again. Main pulmonary artery unremarkable. The pulmonary veins appear dilated with respect to their air brake mechanic airways compatible with CHF though not as prominent as previously shown. Fluid and retained food is seen mildly distending the majority esophagus and there is a small hiatal hernia appreciated. Interval right central venous dialysis catheter is in placed terminating at the inferior vena cava. No lymphadenopathy. However, there is enlarged thyroid gland with numerous slightly hyperdense nodules scattered diffusely suggesting goiter. PLEURA: Small bilateral pleural effusions are recurrent or slightly diminished in the interval. No pericardial effusion. BONES: No fracture. No destructive lesion. UPPER ABDOMEN: Intra vena cava filter placement identified. OTHER FINDINGS: None. IMPRESSION: 1. Limited potential infiltrates or atelectasis affects the lingula and left lower lobe. 2. [id number] CHF. Recurrent or diminished limited bilateral pleural effusions. No pericardial effusion cardiomegaly appears stable. 3. [id number] CHF. 4. Nodular thyroid noted at the thoracic inlet likely reflecting goiter incidentally. Incidental IVC filter placement also identified.
[2017-03-31] MEDS: Dexamethasone 4 mg/1 ml IV SCH (12:30)
--- NOTE | 2017-03-31 20:17 | CP.PCM.PN ---
Subjective - Date & Time of Evaluation Date of Evaluation: 03/31/17 Time of Evaluation: 15:45 - Subjective Subjective: Patient's condition deteriorated this AM. A rapid reponse was called and patient was evaluated by Dr Gomez. Lab studies reveal a WBC count of 46,000, and a Hgb of 7.3. CT scans of the head and chest were ordered. At the present time, patient is lethergic and confused. Transfusion was ordered and other supportive measures in place. I spoke with Ms Jaeger's daughter and explained the severity of her mother's condition. Objective - Vital Signs/Intake and Output Vital Signs (last 24 hours): Temp Pulse Resp BP Pulse Ox 97.2 F L 82 20 112/58 L 100 03/31/17 19:49 03/31/17 19:49 03/31/17 19:49 03/31/17 19:49 03/31/17 15:00 Intake and Output: 03/31/17 04/01/17 18:59 06:59 Intake Total 650 0 Output Total 500 Balance 150 0 - Medications Medications: Current Medications Albumin Human (Albumin Human 25% (12.5 Gm/50 Ml)) 25 gm IV Q12 [facility] Last Admin: 03/31/17 10:00 Dose: Not Given Albuterol Sulfate (Albuterol 0.042% Inhal Tricia (1.25mg/3ml) Ud) 1.25 mg INH RTID [facility] Last Admin: 03/31/17 19:39 Dose: 1.25 mg Dexamethasone (Decadron Inj) 2 mg IV DAILY [facility] Last Admin: 03/31/17 12:30 Dose: 2 mg Dextrose (Dextrose 50% Inj) 0 ml IVP .STAT PRN; Protocol PRN Reason: Hypoglycemia Protocol Last Admin: 03/14/17 06:59 Dose: 50 ml Epoetin Arturo (Procrit) 10,000 unit SC MWF [facility] Last Admin: 03/30/17 09:34 Dose: 10,000 unit Erythromycin (Erythromycin) 1 applic OD HS [facility] Last Admin: 03/30/17 21:43 Dose: 1 appl Famotidine (Pepcid) 20 mg PO DAILY [facility] Last Admin: 03/31/17 10:50 Dose: Not Given Metronidazole (Flagyl) 500 mg in 100 mls @ 100 mls/hr IVPB Q8H [facility] Last Admin: 03/31/17 17:21 Dose: 100 mls/hr Sodium Chloride (Sodium Chloride 0.9%) 1,000 mls @ 50 mls/hr IV .Q20H [facility] Last Admin: 03/31/17 08:55 Dose: 50 mls/hr Immune Globulin (Octagam 5%) 30 gm IV ONCE [facility] Stop: 04/03/17 10:01 Insulin Glargine (Lantus) 8 unit SC HS [facility] Last Admin: 03/30/17 21:43 Dose: 8 units Insulin Human Regular (Novolin R) 0 unit SC ACHS [facility] PRN Reason: Protocol Last Admin: 03/31/17 17:11 Dose: Not Given Levetiracetam (Keppra) 500 mg PO BID [facility] Last Admin: 03/31/17 17:21 Dose: 500 mg Lorazepam (Ativan) 0.5 mg PO HS PRN PRN Reason: Anxiety Last Admin: 03/30/17 21:18 Dose: 0.5 mg Potassium Chloride (Potassium Chloride Oral Soln) 20 meq PO BID [facility] Last Admin: 03/31/17 17:37 Dose: Not Given Pyridostigmine [place] (Mestinon Tab) 60 mg PO TID [facility] Last Admin: 03/31/17 17:21 Dose: 60 mg Sodium Bicarbonate (Sodium Bicarbonate Tab) 650 mg PO BID [facility] Last Admin: 03/31/17 17:21 Dose: 650 mg - Labs Labs: 03/31/17 08:17 03/31/17 08:17 PT 17.3 SECONDS (9.7-12.2) H 03/26/17 11:49 INR 1.5 03/26/17 11:49 APTT 38 SECONDS (21-34) H 03/26/17 11:49 - Constitutional Appears: Chronically Ill - Head Exam Head Exam: NORMOCEPHALIC - Neck Exam Neck Exam: Normal Inspection - Respiratory Exam Respiratory Exam: Decreased Breath Sounds - Cardiovascular Exam Cardiovascular Exam: Irregular Rhythm - GI/Abdominal Exam GI & Abdominal Exam: Hyperactive Bowel Sounds - Rectal Exam Rectal Exam: Deferred - Exam External exam: NORMAL EXTERNAL EXAM - Extremities Exam Extremities Exam: Pedal Edema - Back Exam Back Exam: NORMAL INSPECTION - Neurological Exam Neurological Exam: Altered - Skin Skin Exam: Dry Assessment and Plan (1) Myelodysplasia (myelodysplastic syndrome) Status: Acute (2) Severe anemia Status: Acute (3) Degenerative disc disease at L5-S1 level Status: Acute (4) Osteoarthritis Status: Acute (5) Thrombocytopenia Status: Acute (6) Sepsis Status: Acute (7) Carbapenem-resistant bacterial infection Status: Acute (8) Meningioma Status: Acute (9) Myasthenia Status: Acute
[2017-03-31] MEDS: Erythromycin 0.5% Ophth Oint 1 APPLIC/3.5 G OD SCH (21:30)
--- NOTE | 2017-03-31 21:53 | CP.PCM.PN ---
Subjective - Date & Time of Evaluation Date of Evaluation: 03/31/17 Time of Evaluation: 09:00 - Subjective Subjective: Vascular surgery Progress note. Dr. Bateman Vascular surgery was re-consulted for possible re-insertion of portacath. Pt seen and examined at bedside this morning. COLLEGE ADVISOR called this AM due to patient lethargy and decreased responsiveness. Dr. Gomez and team is at bedside evaluating and managing the patient. Patient's status has acutely deteriorated and aggressive supportive measures are underway. Objective - Vital Signs/Intake and Output Vital Signs (last 24 hours): Temp Pulse Resp BP Pulse Ox 97.1 F L 79 20 117/67 100 03/31/17 20:19 03/31/17 20:19 03/31/17 20:19 03/31/17 20:19 03/31/17 15:00 Intake and Output: 03/31/17 04/01/17 18:59 06:59 Intake Total 650 367 Output Total 500 Balance 150 367 - Medications Medications: Current Medications Albumin Human (Albumin Human 25% (12.5 Gm/50 Ml)) 25 gm IV Q12 [facility] Last Admin: 03/31/17 10:00 Dose: Not Given Albuterol Sulfate (Albuterol 0.042% Inhal Tricia (1.25mg/3ml) Ud) 1.25 mg INH RTID [facility] Last Admin: 03/31/17 19:39 Dose: 1.25 mg Dexamethasone (Decadron Inj) 2 mg IV DAILY [facility] Last Admin: 03/31/17 12:30 Dose: 2 mg Dextrose (Dextrose 50% Inj) 0 ml IVP .STAT PRN; Protocol PRN Reason: Hypoglycemia Protocol Last Admin: 03/14/17 06:59 Dose: 50 ml Epoetin Arturo (Procrit) 10,000 unit SC MWF [facility] Last Admin: 03/30/17 09:34 Dose: 10,000 unit Erythromycin (Erythromycin) 1 applic OD HS [facility] Last Admin: 03/31/17 21:30 Dose: 1 appl Famotidine (Pepcid) 20 mg PO DAILY [facility] Last Admin: 03/31/17 10:50 Dose: Not Given Metronidazole (Flagyl) 500 mg in 100 mls @ 100 mls/hr IVPB Q8H [facility] Last Admin: 03/31/17 17:21 Dose: 100 mls/hr Sodium Chloride (Sodium Chloride 0.9%) 1,000 mls @ 50 mls/hr IV .Q20H [facility] Last Admin: 03/31/17 08:55 Dose: 50 mls/hr Immune Globulin (Octagam 5%) 30 gm IV ONCE [facility] Stop: 04/03/17 10:01 Insulin Glargine (Lantus) 8 unit SC HS [facility] Last Admin: 03/30/17 21:43 Dose: 8 units Insulin Human Regular (Novolin R) 0 unit SC ACHS [facility] PRN Reason: Protocol Last Admin: 03/31/17 17:11 Dose: Not Given Levetiracetam (Keppra) 500 mg PO BID [facility] Last Admin: 03/31/17 17:21 Dose: 500 mg Lorazepam (Ativan) 0.5 mg PO HS PRN PRN Reason: Anxiety Last Admin: 03/30/17 21:18 Dose: 0.5 mg Potassium Chloride (Potassium Chloride Oral Soln) 20 meq PO BID [facility] Last Admin: 03/31/17 17:37 Dose: Not Given Pyridostigmine [place] (Mestinon Tab) 60 mg PO TID [facility] Last Admin: 03/31/17 17:21 Dose: 60 mg Sodium Bicarbonate (Sodium Bicarbonate Tab) 650 mg PO BID [facility] Last Admin: 03/31/17 17:21 Dose: 650 mg - Labs Labs: 03/31/17 08:17 03/31/17 08:17 PT 17.3 SECONDS (9.7-12.2) H 03/26/17 11:49 INR 1.5 03/26/17 11:49 APTT 38 SECONDS (21-34) H 03/26/17 11:49 - Constitutional Appears: In Acute Distress, Confused, Cachectic - Head Exam Head Exam: ATRAUMATIC, NORMAL INSPECTION, NORMOCEPHALIC - Extremities Exam Additional comments: R upper extremity PICC in place and in working condition. Right upper chest port site with chlorhexidine disc in place and clear vapor dressing - Neurological Exam Neurological Exam: Altered Additional comments: decreased responsiveness Assessment and Plan - Assessment and Plan (Free Text) Assessment: 76yo F with myleodysplastic syndrome and multiple comorbidities. Vascular surgery re-consulted for possible replacement of previously removed (03/14/17) infected portacath. - Aggressive supportive measure underway - severe thrombocytopenia - severe leukocytosis - Will re-evaluate patient over the next couple days for possible replacement of portacath - Continue current medical management - f/u family discussions with attending Further recs as per Dr. Fransico Cheng PGY1 surgery pager: [phone]
[2017-03-31] MEDS: (Lantus) Insulin Glargine, Recombinant SC SCH (22:32)
[2017-04-01] MEDS: metroNIDAZOLE IV 500 mg/100 ml 500 MG/100 ML BAG IVPB SCH ×3 (01:10→18:14)
[2017-04-01] MEDS ORDERED: Tigecycline 50 MG in Dextrose 5% In Water 100 ML IVPB SCH (03:00)
[2017-04-01] MEDS: Sodium Chloride 0.9% 1,000 ML IV SCH (04:15)
[2017-04-01] MEDS: Albuterol 0.042% Inhal Sol (1.25 mg/3 mL) UD INH SCH ×3 (07:37→19:49)
[2017-04-01] MEDS: (Novolin R) Insulin Human Regular 100 units/ml vial SC SCH ×4 (08:12→22:09)
[2017-04-01] MEDS: Dexamethasone 4 mg/1 ml IV SCH (10:08)
[2017-04-01] MEDS: Potassium Chloride 20 mEq/15 ml LIQ UD PO SCH ×2 (10:51→18:15)
--- NOTE | 2017-04-01 11:26 | CP.PCM.PN ---
Subjective - Date & Time of Evaluation Date of Evaluation: 04/01/17 Time of Evaluation: 09:30 - Subjective Subjective: Vascular surgery progress note. Dr. Bateman Pt seen and evaluated at bedside. More awake and alert this morning. Denies any pain. No complaints. Objective - Vital Signs/Intake and Output Vital Signs (last 24 hours): Temp Pulse Resp BP Pulse Ox 97.2 F L 75 20 117/63 100 04/01/17 07:45 04/01/17 07:45 04/01/17 07:45 04/01/17 07:45 04/01/17 07:45 Intake and Output: 04/01/17 04/01/17 06:59 18:59 Intake Total 2416 Output Total 750 Balance 1666 - Medications Medications: Current Medications Albumin Human (Albumin Human 25% (12.5 Gm/50 Ml)) 25 gm IV Q12 [facility] Last Admin: 03/31/17 22:34 Dose: Not Given Albuterol Sulfate (Albuterol 0.042% Inhal Tricia (1.25mg/3ml) Ud) 1.25 mg INH RTID [facility] Last Admin: 04/01/17 07:37 Dose: 1.25 mg Dexamethasone (Decadron Inj) 2 mg IV DAILY [facility] Last Admin: 04/01/17 10:08 Dose: 2 mg Dextrose (Dextrose 50% Inj) 0 ml IVP .STAT PRN; Protocol PRN Reason: Hypoglycemia Protocol Last Admin: 03/14/17 06:59 Dose: 50 ml Epoetin Arturo (Procrit) 10,000 unit SC MWF [facility] Last Admin: 03/30/17 09:34 Dose: 10,000 unit Erythromycin (Erythromycin) 1 applic OD HS [facility] Last Admin: 03/31/17 21:30 Dose: 1 appl Famotidine (Pepcid) 20 mg PO DAILY [facility] Last Admin: 04/01/17 10:51 Dose: 20 mg Metronidazole (Flagyl) 500 mg in 100 mls @ 100 mls/hr IVPB Q8H [facility] Last Admin: 04/01/17 10:07 Dose: 100 mls/hr Sodium Chloride (Sodium Chloride 0.9%) 1,000 mls @ 50 mls/hr IV .Q20H [facility] Last Admin: 04/01/17 04:15 Dose: Not Given Immune Globulin (Octagam 5%) 30 gm IV ONCE [facility] Stop: 04/03/17 10:01 Insulin Glargine (Lantus) 8 unit SC HS [facility] Last Admin: 03/31/17 22:32 Dose: Not Given Insulin Human Regular (Novolin R) 0 unit SC ACHS [facility] PRN Reason: Protocol Last Admin: 04/01/17 08:12 Dose: Not Given Levetiracetam (Keppra) 500 mg PO BID [facility] Last Admin: 04/01/17 10:49 Dose: 500 mg Lorazepam (Ativan) 0.5 mg PO HS PRN PRN Reason: Anxiety Last Admin: 03/30/17 21:18 Dose: 0.5 mg Potassium Chloride (Potassium Chloride Oral Soln) 20 meq PO BID [facility] Last Admin: 04/01/17 10:51 Dose: Not Given Pyridostigmine [place] (Mestinon Tab) 60 mg PO TID [facility] Last Admin: 04/01/17 10:51 Dose: Not Given Sodium Bicarbonate (Sodium Bicarbonate Tab) 650 mg PO BID [facility] Last Admin: 04/01/17 10:53 Dose: Not Given - Labs Labs: 03/31/17 08:17 03/31/17 08:17 PT 17.3 SECONDS (9.7-12.2) H 03/26/17 11:49 INR 1.5 03/26/17 11:49 APTT 38 SECONDS (21-34) H 03/26/17 11:49 - Constitutional Appears: Cachectic, Chronically Ill - Head Exam Head Exam: ATRAUMATIC, NORMAL INSPECTION, NORMOCEPHALIC - Eye Exam Eye Exam: Conjunctival injection, Periorbital swelling (right) Additional comments: Right eye erythema and proptosis noted. - ENT Exam ENT Exam: Mucous Membranes Moist - Respiratory Exam Respiratory Exam: NORMAL BREATHING PATTERN. absent: Accessory Muscle Use, Respiratory Distress - Extremities Exam Additional comments: Right IJ tunneled permacath in place. - Neurological Exam Neurological Exam: Awake Assessment and Plan - Assessment and Plan (Free Text) Assessment: 76yo F with MDS and multiple comorbidities. Vascular surgery reconsulted for possible replacement of portacath - severe thrombocytopenia and leukocytosis noted - Continue aggressive supportive management - Patient will need aggressive hematology tune up prior to any vascular surgery intervention - f/u with attending/family discussions for plan Further recs as per Dr. Fransico Cheng PGY1 surgery pager: [phone]
[2017-04-01] MEDS: Albumin Human 25% (12.5 gm/50 ml) IV SCH ×2 (13:56→21:11)
--- NOTE | 2017-04-01 14:58 | CP.PCM.PN ---
Subjective - Date & Time of Evaluation Date of Evaluation: 04/01/17 Time of Evaluation: 09:00 - Subjective Subjective: more alert afebrile s/p rapid response yest no new cuultures Objective - Vital Signs/Intake and Output Vital Signs (last 24 hours): Temp Pulse Resp BP Pulse Ox 97.2 F L 75 20 117/63 100 04/01/17 07:45 04/01/17 07:45 04/01/17 07:45 04/01/17 07:45 04/01/17 07:45 Intake and Output: 04/01/17 04/01/17 06:59 18:59 Intake Total 2416 570 Output Total 750 300 Balance 1666 270 - Medications Medications: Current Medications Albumin Human (Albumin Human 25% (12.5 Gm/50 Ml)) 25 gm IV Q12 [facility] Last Admin: 04/01/17 13:56 Dose: 25 gm Albuterol Sulfate (Albuterol 0.042% Inhal Tricia (1.25mg/3ml) Ud) 1.25 mg INH RTID [facility] Last Admin: 04/01/17 13:07 Dose: 1.25 mg Dexamethasone (Decadron Inj) 2 mg IV DAILY [facility] Last Admin: 04/01/17 10:08 Dose: 2 mg Dextrose (Dextrose 50% Inj) 0 ml IVP .STAT PRN; Protocol PRN Reason: Hypoglycemia Protocol Last Admin: 03/14/17 06:59 Dose: 50 ml Epoetin Arturo (Procrit) 10,000 unit SC MWF [facility] Last Admin: 03/30/17 09:34 Dose: 10,000 unit Erythromycin (Erythromycin) 1 applic OD HS [facility] Last Admin: 03/31/17 21:30 Dose: 1 appl Famotidine (Pepcid) 20 mg PO DAILY [facility] Last Admin: 04/01/17 10:51 Dose: 20 mg Metronidazole (Flagyl) 500 mg in 100 mls @ 100 mls/hr IVPB Q8H [facility] Last Admin: 04/01/17 10:07 Dose: 100 mls/hr Sodium Chloride (Sodium Chloride 0.9%) 1,000 mls @ 50 mls/hr IV .Q20H [facility] Last Admin: 04/01/17 04:15 Dose: Not Given Immune Globulin (Octagam 5%) 30 gm IV ONCE [facility] Stop: 04/03/17 10:01 Insulin Glargine (Lantus) 8 unit SC HS [facility] Last Admin: 03/31/17 22:32 Dose: Not Given Insulin Human Regular (Novolin R) 0 unit SC ACHS [facility] PRN Reason: Protocol Last Admin: 04/01/17 12:11 Dose: 2 unit Levetiracetam (Keppra) 500 mg PO BID [facility] Last Admin: 04/01/17 10:49 Dose: 500 mg Lorazepam (Ativan) 0.5 mg PO HS PRN PRN Reason: Anxiety Last Admin: 03/30/17 21:18 Dose: 0.5 mg Potassium Chloride (Potassium Chloride Oral Soln) 20 meq PO BID [facility] Last Admin: 04/01/17 10:51 Dose: Not Given Pyridostigmine [place] (Mestinon Tab) 60 mg PO TID [facility] Last Admin: 04/01/17 13:57 Dose: 60 mg Sodium Bicarbonate (Sodium Bicarbonate Tab) 650 mg PO BID [facility] Last Admin: 04/01/17 10:53 Dose: Not Given - Labs Labs: 03/31/17 08:17 03/31/17 08:17 PT 17.3 SECONDS (9.7-12.2) H 03/26/17 11:49 INR 1.5 03/26/17 11:49 APTT 38 SECONDS (21-34) H 03/26/17 11:49 - Constitutional Appears: No Acute Distress, Chronically Ill - Head Exam Head Exam: NORMOCEPHALIC - Eye Exam Eye Exam: EOMI, PERRL - ENT Exam ENT Exam: Mucous Membranes Dry - Neck Exam Neck Exam: absent: Lymphadenopathy - Respiratory Exam Respiratory Exam: Decreased Breath Sounds, Rhonchi - Cardiovascular Exam Cardiovascular Exam: REGULAR RHYTHM, +S1, +S2 - GI/Abdominal Exam GI & Abdominal Exam: Distended, Soft. absent: Tenderness - Rectal Exam Rectal Exam: Deferred - Exam Exam: NORMAL INSPECTION - Extremities Exam Extremities Exam: absent: Pedal Edema - Back Exam Back Exam: absent: CVA tenderness (L), CVA tenderness (R) - Neurological Exam Neurological Exam: Alert, Awake, CN II-XII Intact, Oriented x3 - Psychiatric Exam Psychiatric exam: Depressed Assessment and Plan (1) Myelodysplasia (myelodysplastic syndrome) Status: Acute (2) Severe anemia Status: Acute (3) Acute on chronic diastolic (congestive) heart failure Status: Acute (4) Anemia Status: Acute (5) Degenerative disc disease at L5-S1 level Status: Acute (6) Dehydration Status: Acute (7) Diabetes mellitus type 2 in obese Status: Acute (8) Carbapenem-resistant bacterial infection Status: Acute (9) Carbapenem-resistant bacterial infection Status: Acute
--- NOTE | 2017-04-01 19:54 | CP.PCM.PN ---
Subjective - Date & Time of Evaluation Date of Evaluation: 04/01/17 Time of Evaluation: 17:30 - Subjective Subjective: Patient less confused today. Denies any pain. She was evaluated by Dr Prabhakar. We need a new portacath. Dr Bateman on consult. Objective - Vital Signs/Intake and Output Vital Signs (last 24 hours): Temp Pulse Resp BP Pulse Ox 97.1 F L 84 20 149/105 H 95 04/01/17 16:00 04/01/17 16:00 04/01/17 16:00 04/01/17 16:00 04/01/17 16:00 Intake and Output: 04/01/17 04/02/17 18:59 06:59 Intake Total 570 Output Total 300 Balance 270 - Medications Medications: Current Medications Albumin Human (Albumin Human 25% (12.5 Gm/50 Ml)) 25 gm IV Q12 [facility] Last Admin: 04/01/17 13:56 Dose: 25 gm Albuterol Sulfate (Albuterol 0.042% Inhal Tricia (1.25mg/3ml) Ud) 1.25 mg INH RTID [facility] Last Admin: 04/01/17 13:07 Dose: 1.25 mg Dexamethasone (Decadron Inj) 2 mg IV DAILY [facility] Last Admin: 04/01/17 10:08 Dose: 2 mg Dextrose (Dextrose 50% Inj) 0 ml IVP .STAT PRN; Protocol PRN Reason: Hypoglycemia Protocol Last Admin: 03/14/17 06:59 Dose: 50 ml Epoetin Arturo (Procrit) 10,000 unit SC MWF [facility] Last Admin: 03/30/17 09:34 Dose: 10,000 unit Erythromycin (Erythromycin) 1 applic OD HS [facility] Last Admin: 03/31/17 21:30 Dose: 1 appl Famotidine (Pepcid) 20 mg PO DAILY [facility] Last Admin: 04/01/17 10:51 Dose: 20 mg Metronidazole (Flagyl) 500 mg in 100 mls @ 100 mls/hr IVPB Q8H [facility] Last Admin: 04/01/17 18:14 Dose: 100 mls/hr Sodium Chloride (Sodium Chloride 0.9%) 1,000 mls @ 50 mls/hr IV .Q20H [facility] Last Admin: 04/01/17 04:15 Dose: Not Given Tigecycline 50 mg/ Sodium (Chloride) 100 mls @ 100 mls/hr IVPB Q12H [facility] Immune Globulin (Octagam 5%) 30 gm IV ONCE [facility] Stop: 04/03/17 10:01 Insulin Glargine (Lantus) 8 unit SC HS [facility] Last Admin: 03/31/17 22:32 Dose: Not Given Insulin Human Regular (Novolin R) 0 unit SC ACHS [facility] PRN Reason: Protocol Last Admin: 04/01/17 17:30 Dose: Not Given Levetiracetam (Keppra) 500 mg PO BID [facility] Last Admin: 04/01/17 18:14 Dose: 500 mg Lorazepam (Ativan) 0.5 mg PO HS PRN PRN Reason: Anxiety Last Admin: 03/30/17 21:18 Dose: 0.5 mg Potassium Chloride (Potassium Chloride Oral Soln) 20 meq PO BID [facility] Last Admin: 04/01/17 18:15 Dose: Not Given Pyridostigmine [place] (Mestinon Tab) 60 mg PO TID [facility] Last Admin: 04/01/17 18:14 Dose: 60 mg Sodium Bicarbonate (Sodium Bicarbonate Tab) 650 mg PO BID [facility] Last Admin: 04/01/17 18:14 Dose: 650 mg - Labs Labs: 03/31/17 08:17 03/31/17 08:17 PT 17.3 SECONDS (9.7-12.2) H 03/26/17 11:49 INR 1.5 03/26/17 11:49 APTT 38 SECONDS (21-34) H 03/26/17 11:49 - Constitutional Appears: Chronically Ill - Head Exam Head Exam: NORMOCEPHALIC - Eye Exam Eye Exam: Normal appearance - ENT Exam ENT Exam: Normal Exam - Neck Exam Neck Exam: Normal Inspection - Respiratory Exam Respiratory Exam: Decreased Breath Sounds - Cardiovascular Exam Cardiovascular Exam: REGULAR RHYTHM - GI/Abdominal Exam GI & Abdominal Exam: Hyperactive Bowel Sounds - Rectal Exam Rectal Exam: Deferred - Exam External exam: NORMAL EXTERNAL EXAM - Extremities Exam Extremities Exam: Joint Swelling - Back Exam Back Exam: CVA tenderness (R) - Neurological Exam Neurological Exam: Awake Neuro motor strength exam: Right Upper Extremity: 5, Right Lower Extremity: 5 Assessment and Plan (1) Myelodysplasia (myelodysplastic syndrome) Status: Acute (2) Severe anemia Status: Acute (3) Degenerative disc disease at L5-S1 level Status: Acute (4) Osteoarthritis Status: Acute (5) Thrombocytopenia Status: Acute (6) Sepsis Status: Acute (7) Carbapenem-resistant bacterial infection Status: Acute (8) Meningioma Status: Acute (9) Myasthenia Status: Acute
[2017-04-01] MEDS: Erythromycin 0.5% Ophth Oint 1 APPLIC/3.5 G OD SCH (21:14)
[2017-04-01] MEDS: (Lantus) Insulin Glargine, Recombinant SC SCH (22:00)
[2017-04-02] MEDS: Sodium Chloride 0.9% 1,000 ML IV SCH ×2 (00:41→21:57)
[2017-04-02] MEDS: metroNIDAZOLE IV 500 mg/100 ml 500 MG/100 ML BAG IVPB SCH ×3 (02:09→17:28)
[2017-04-02] MEDS: Albuterol 0.042% Inhal Sol (1.25 mg/3 mL) UD INH SCH ×2 (07:33→13:38)
[2017-04-02] MEDS: (Novolin R) Insulin Human Regular 100 units/ml vial SC SCH ×4 (08:03→22:17)
--- NOTE | 2017-04-02 09:09 | RAD ---
HISTORY: interval changes COMPARISON: Portable chest 03/30/2017. FINDINGS: LUNGS: Right center venous dialysis catheter is unchanged in position with heterogeneous limited infiltrates remaining in the left perihilar and right upper lung zones unchanged. PLEURA: No significant pleural effusion identified, no pneumothorax apparent. CARDIOVASCULAR: Cardiac silhouette remains somewhat prominent appearing. No definite pulmonary vascular derangement. OSSEOUS STRUCTURES: No significant abnormalities. VISUALIZED UPPER ABDOMEN: Normal. OTHER FINDINGS: None. IMPRESSION: Stable left perihilar and right upper lung limited infiltrate. No new infiltrate is identified. No improvement is identified either. Continued clinical and radiographic monitoring are advised.
[2017-04-02 09:46] LABS: BASO % 0.1 % (0.0-2.0); HEMATOCRIT 25.8 % (34.0-47.0); LYMPH # 1.3 K/uL (1.0-4.3); LYMPH % 4.4 % (20.0-40.0); MEAN CORPUSCULAR HEMOGLOBIN 29.7 pg (27.0-31.0); MEAN CORPUSCULAR HGB CONC 32.8 g/dL (33.0-37.0); MEAN PLATELET VOLUME 8.5 fL (7.2-11.7); MONO # 4.6 K/uL (0.0-0.8); MONO % 15.7 % (0.0-10.0); NRBC % 0.8 % (0.0-2.0); RED CELL DISTRIBUTION WIDTH 17.2 % (11.5-14.5); WHITE BLOOD COUNT 29.3 K/uL (4.8-10.8)
[2017-04-02 09:50] LABS: MEAN CELL VOLUME 90.5 fL (81.0-99.0); PLATELET COUNT 37 K/uL (130-400)
[2017-04-02] MEDS: EPOETIN ALFA 10,000 UNIT/ML ML SC SCH (10:00)
[2017-04-02 10:02] LABS: ALB/GLOB RATIO 1.5 (1.0-2.1); ALKALINE PHOSPHATASE 1177 U/L (38-126); ALT/SGPT 65 U/L (9-52); AST/SGOT 56 U/L (14-36); BILIRUBIN,TOTAL 1.7 mg/dL (0.2-1.3); BLOOD UREA NITROGEN 20 mg/dL (7-17); CALCIUM 8.5 mg/dl (8.6-10.4); CARBON DIOXIDE 20 mmol/L (22-30); CHLORIDE 113 mmol/L (98-107); GFR AFRICAN-AMERICAN > 60; GLUCOSE,RANDOM 200 mg/dL (65-105); POTASSIUM 3.9 mmol/L (3.6-5.2); SODIUM 141 mmol/L (132-148)
[2017-04-02 10:05] LABS: NEUTROPHIL 87 % (50-75); TOTAL CELLS COUNTED 100
[2017-04-02 10:07] LABS: INR 1.5
[2017-04-02] MEDS: Dexamethasone 4 mg/1 ml IV SCH (11:00)
[2017-04-02] MEDS: Potassium Chloride 20 mEq/15 ml LIQ UD PO SCH ×2 (11:00→17:27)
[2017-04-02] MEDS: Albumin Human 25% (12.5 gm/50 ml) IV SCH ×2 (11:57→21:54)
--- NOTE | 2017-04-02 13:09 | PN ---
DATE: 04/02/2017 NEUROLOGICAL PROBLEM: Myasthenia gravis and plasmapheresis, status post plasma exchange. PHYSICAL EXAMINATION VITAL SIGNS: Blood pressure 137/76, mean arterial pressure of 96, respiratory rate 16, temperature afebrile. NEUROLOGIC: The patient is awake and alert, communicable. She follows command. Moves all four extremities. However, limited examination due to her weakness. ASSESSMENT AND PLAN: The patient has not been getting IV immunoglobulin at present. As requested, patient gets 5 days treatment of IV immunoglobulin. Once she get completed the therapy, the patient is a good candidate for rehabilitation. Continue the present management. The patient will be followed while she is in the hospital. Javad Cota MD MTDD
--- NOTE | 2017-04-02 15:09 | CP.PCM.CON ---
History of Present Illness - History of Present Illness History of Present Illness: Palliative consult requested by Doctor Foster for goals of care discussion Patient is a 76 yo lady admitted on 03/04/17 , from home with complaints of shoulder pain lasting for a few days. In ED patient found with Hb 6.8 and Platelets 23. Immediate actions taken and Blood transfusion administered. Patient has known Hx of severe anemia and frequent Blood transfusions. Family also repoted brow/orange stool and dark emesis. Further diagnostic studies concluded diagnosis of Pneumonia, Myasthenia Gravs and + BC for K. Pneuminie. The IV antibiotics initiated, concluding of Flagyl, Erythromycin and Tygacil. Patient had Plasma exchange as well. The Port o Cath was removed as was believed source of infection. GI consult by Doctor Shukri; no EGD interventions advised at present. PMH: severe anemia with frequent blood transfusions, anxiety, arthritis, CHF, depression, peripheral edema Soc. Hx: , lives at home, son and daughter involved in care, denies smoking or alcohol use Fam. Hx: No known cancer in family Review of Systems - Constitutional Constitutional: Malaise, Weakness - EENT Eyes: Exophthalmos Ears: absent: As Per HPI, Decreased Hearing, Ear Discharge, Ear Pain, Tinnitus, Abnormal Hearing, Disequilibrium, Dizziness, Other Nose/Mouth/Throat: absent: As Per HPI, Epistaxis, Nasal Congestion, Nasal Discharge, Nasal Obstruction, Nasal Trauma, Nose Pain, Post Nasal Drip, Sinus Pain, Sinus Pressure, Bleeding Gums, Change in Voice, Dental Pain, Dry Mouth, Dysphagia, Halitosis, Hoarsness, Lip Swelling, Mouth Lesions, Mouth Pain, Odynophagia, Sore Throat, Throat Swelling, Tongue Swelling, Facial Pain, Neck Pain, Neck Mass, Other - Breasts Breasts: absent: As Per HPI, Change in Shape, Mass, Pain, Nipple Discharge, Nipple Inversion, Skin Changes, Swelling, Other - Cardiovascular Cardiovascular: absent: As Per HPI, Acrocyanosis, Chest Pain, Chest Pain at Rest , Chest Pain with Activity, Claudication, Diaphoresis, Dyspnea, Dyspnea on Exertion, Edema, Irregular Heart Rhythm, Pain Radiating to Arm/Neck/Jaw, Leg Edema, Leg Ulcers, Lightheadedness, Orthopnea, Palpitations, Paroxysmal Nocturnal Dyspnea, Pedal Edema, Radiating Pain, Rapid Heart Rate, Slow Heart Rate, Syncope, Other - Respiratory Respiratory: absent: As Per HPI, Cough, Dyspnea, Hemoptysis, Dyspnea on Exertion , Wheezing, Snoring, Stridor, Pain on Inspiration, Chest Congestion, Excessive Mucous Production, Change in Mucous Color, Pain with Coughing, Other - Gastrointestinal Gastrointestinal: absent: As Per HPI, Abdominal Pain, Belching, Bloating, Change in Bowel Habits, Change in Stool Character, Coffee Ground Emesis, Constipation, Cramping, Diarrhea, Dyspepsia, Dysphagia, Early Satiety, Excessive Flatus, Fecal Incontinence, Heartburn, Hematemesis, Hematochezia, Loose Stools, Melena, Nausea, Odynophagia, Temesmus, Vomiting, Other - Genitourinary Genitourinary: absent: As Per HPI, Change in Urinary Stream, Difficulty Urinating, Dysuria, Flank Pain, Hematuria, Pyuria, Nocturia, Urinary Incontinence, Urinary Frequency, Urinary Hesitance, Urinary Urgency, Voiding Freq/Small Amts, Freq UTI, Hx Renal/Bladder Calculi, Hx /Renal Surgery, Bladder Distension, Other - Reproductive: Female Reproductive:Female: Post Menopausal - Menstruation Menstruation: Post Menopausal - Musculoskeletal Musculoskeletal: Muscle Weakness - Integumentary Integumentary: Dry Skin - Neurological Neurological: Weakness - Psychiatric Psychiatric: Anxiety - Endocrine Endocrine: Fatigue - Hematologic/Lymphatic Hematologic: Easy Bleeding, Easy Bruising Past Patient History - Infectious Disease Hx of Infectious Diseases: None - Tetanus Immunizations Tetanus Immunization: Unknown, Up to Date - Past Medical History & Family History Past Medical History?: Yes Past Family History: Reviewed and not pertinent - Past Social History Smoking Status: Never Smoked Chewing Tobacco Use: No Cigar Use: No Alcohol: None Drugs: Denies Home Situation {Lives}: With Family - CARDIAC Hx Congestive Heart Failure: Yes Hx Hypertension: Yes - PULMONARY Hx Chronic Obstructive Pulmonary Disease (COPD): Yes (EMPHYSEMA) - NEUROLOGICAL Hx Neurological Disorder: No Hx Vertigo: Yes - HEENT Hx HEENT Problems: No - RENAL Hx Chronic Kidney Disease: No - ENDOCRINE/METABOLIC Hx Diabetes Mellitus Type 2: Yes - HEMATOLOGICAL/ONCOLOGICAL Hx Anemia: Yes Hx Blood Transfusions: Yes - INTEGUMENTARY Hx Dermatological Problems: No Other/Comment: BLE w/ cauliflowered skin - MUSCULOSKELETAL/RHEUMATOLOGICAL Hx Arthritis: Yes (NECK, L SH; B/L KNEES) - GASTROINTESTINAL Hx Gastritis: Yes - GENITOURINARY/GYNECOLOGICAL Hx Genitourinary Disorders: No Para: 2 - PSYCHIATRIC Hx Physical Abuse: No Hx Schizophrenia: No Hx Sexual Abuse: No Hx Substance Use: No - SURGICAL HISTORY Hx Cholecystectomy: Yes (in 2010) Hx Tonsillectomy: Yes (8yrs old) - ANESTHESIA Hx Anesthesia: Yes Hx Anesthesia Reactions: No Hx Malignant Hyperthermia: No Meds Allergies/Adverse Reactions: Allergies Allergy/AdvReac Type Severity Reaction Status Date / Time Gadolinium-Containing Allergy ITCHING Verified 12/13/16 15:45 Contrast Medi - Medications Medications: Current Medications Albumin Human (Albumin Human 25% (12.5 Gm/50 Ml)) 25 gm IV Q12 [facility] Stop: 04/03/17 10:00 Last Admin: 04/02/17 11:57 Dose: 25 gm Dexamethasone (Decadron Inj) 2 mg IV DAILY [facility] Last Admin: 04/02/17 11:00 Dose: 2 mg Dextrose (Dextrose 50% Inj) 0 ml IVP .STAT PRN; Protocol PRN Reason: Hypoglycemia Protocol Last Admin: 03/14/17 06:59 Dose: 50 ml Epoetin Arturo (Procrit) 10,000 unit SC MWF [facility] Last Admin: 04/02/17 10:00 Dose: 10,000 unit Erythromycin (Erythromycin) 1 applic OD HS [facility] Last Admin: 04/01/17 21:14 Dose: 1 appl Famotidine (Pepcid) 20 mg PO DAILY [facility] Last Admin: 04/02/17 11:00 Dose: Not Given Metronidazole (Flagyl) 500 mg in 100 mls @ 100 mls/hr IVPB Q8H [facility] Last Admin: 04/02/17 11:00 Dose: 100 mls/hr Sodium Chloride (Sodium Chloride 0.9%) 1,000 mls @ 50 mls/hr IV .Q20H [facility] Last Admin: 04/02/17 00:41 Dose: Not Given Tigecycline 50 mg/ Sodium (Chloride) 100 mls @ 100 mls/hr IVPB Q12H [facility] Last Admin: 04/02/17 14:44 Dose: Not Given Immune Globulin (Octagam 5%) 30 gm IV ONCE [facility] Stop: 04/03/17 10:01 Insulin Glargine (Lantus) 8 unit SC HS [facility] Last Admin: 04/01/17 22:00 Dose: Not Given Insulin Human Regular (Novolin R) 0 unit SC [facility] PRN Reason: Protocol Last Admin: 04/02/17 12:30 Dose: Not Given Levetiracetam (Keppra) 500 mg PO BID [facility] Last Admin: 04/02/17 11:00 Dose: 500 mg Lorazepam (Ativan) 0.5 mg PO HS PRN PRN Reason: Anxiety Last Admin: 03/30/17 21:18 Dose: 0.5 mg Potassium Chloride (Potassium Chloride Oral Soln) 20 meq PO BID [facility] Last Admin: 04/02/17 11:00 Dose: Not Given Pyridostigmine [place] (Mestinon Tab) 60 mg PO TID [facility] Last Admin: 04/02/17 13:52 Dose: 60 mg Sodium Bicarbonate (Sodium Bicarbonate Tab) 650 mg PO BID [facility] Last Admin: 04/02/17 11:00 Dose: 650 mg Physical Exam - Constitutional Appears: Chronically Ill - Head Exam Head Exam: ATRAUMATIC, NORMAL INSPECTION, NORMOCEPHALIC - Eye Exam Additional comments: Exophtalmos to right eye with surrounding edema - ENT Exam ENT Exam: Mucous Membranes Moist, Normal Exam - Neck Exam Neck exam: Positive for: Normal Inspection - Respiratory Exam Respiratory Exam: Clear to Auscultation Bilateral, NORMAL BREATHING PATTERN - Cardiovascular Exam Cardiovascular Exam: REGULAR RHYTHM - GI/Abdominal Exam GI & Abdominal Exam: Normal Bowel Sounds - Rectal Exam Rectal Exam: Deferred - Extremities Exam Extremities exam: Positive for: pedal edema - Back Exam Back exam: NORMAL INSPECTION - Neurological Exam Neurological exam: Alert, Altered - Psychiatric Exam Psychiatric exam: Flat Affect - Skin Skin Exam: Pallor Results - Vital Signs Recent Vital Signs: Last Vital Signs Temp 97.2 F L 04/02/17 14:30 Pulse 67 04/02/17 14:30 Resp 16 04/02/17 14:30 BP 146/77 04/02/17 14:30 Pulse Ox 96 04/02/17 08:00 - Labs Result Diagrams: 04/02/17 09:36 04/02/17 09:36 Labs: Laboratory Results - last 24 hr 04/01/17 04/01/17 04/02/17 17:37 21:29 07:05 WBC RBC Hgb Hct MCV MCH MCHC RDW Plt Count MPV Neut % (Auto) Lymph % (Auto) Ida % (Auto) Eos % (Auto) Baso % (Auto) Neut # Lymph # Ida # Eos # Baso # Neutrophils % (Manual) Band Neutrophils % Lymphocytes % (Manual) Monocytes % (Manual) Platelet Estimate Hypochromasia (manual) Anisocytosis (manual) Target Cells [place]inton Cells PT INR APTT Sodium Potassium Chloride Carbon Dioxide Anion Gap BUN Creatinine Est GFR ( Amer) Est GFR (Non-Af Amer) POC Glucose (mg/dL) 199 H 269 H 208 H Random Glucose Calcium Total Bilirubin AST ALT Alkaline Phosphatase Total Protein Albumin Globulin Albumin/Globulin Ratio Blood Type Antibody Screen 04/02/17 04/02/17 04/02/17 09:36 09:36 09:36 WBC 29.3 H RBC 2.84 L Hgb 8.5 L Hct 25.8 L MCV 90.5 D MCH 29.7 MCHC 32.8 L RDW 17.2 H Plt Count 37 L D MPV 8.5 Neut % (Auto) 79.8 H Lymph % (Auto) 4.4 L Ida % (Auto) 15.7 H Eos % (Auto) 0.0 Baso % (Auto) 0.1 Neut # 23.4 H Lymph # 1.3 Ida # 4.6 H Eos # 0.0 Baso # 0.0 Neutrophils % (Manual) 87 H Band Neutrophils % 3 H Lymphocytes % (Manual) 1 L Monocytes % (Manual) 9 Platelet Estimate Decreased L Hypochromasia (manual) Slight Anisocytosis (manual) Slight Target Cells Slight [place]inton Cells Slight PT 17.1 H INR 1.5 APTT 34 Sodium 141 Potassium 3.9 Chloride 113 H Carbon Dioxide 20 L Anion Gap 12 BUN 20 H Creatinine 0.6 L Est GFR ( Amer) > 60 Est GFR (Non-Af Amer) > 60 POC Glucose (mg/dL) Random Glucose 200 H Calcium 8.5 L Total Bilirubin 1.7 H AST 56 H D ALT 65 H Alkaline Phosphatase 1177 H Total Protein 5.0 L Albumin 3.0 L Globulin 2.0 L Albumin/Globulin Ratio 1.5 Blood Type Antibody Screen 04/02/17 04/02/17 09:36 10:56 WBC RBC Hgb Hct MCV MCH MCHC RDW Plt Count MPV Neut % (Auto) Lymph % (Auto) Ida % (Auto) Eos % (Auto) Baso % (Auto) Neut # Lymph # Ida # Eos # Baso # Neutrophils % (Manual) Band Neutrophils % Lymphocytes % (Manual) Monocytes % (Manual) Platelet Estimate Hypochromasia (manual) Anisocytosis (manual) Target Cells [place] Cells PT INR APTT Sodium Potassium Chloride Carbon Dioxide Anion Gap BUN Creatinine Est GFR ( Amer) Est GFR (Non-Af Amer) POC Glucose (mg/dL) 224 H Random Glucose Calcium Total Bilirubin AST ALT Alkaline Phosphatase Total Protein Albumin Globulin Albumin/Globulin Ratio Blood Type O NEGATIVE Antibody Screen Negative Assessment & Plan - Assessment and Plan (Free Text) Assessment: Palliative consult Code status Full Code, there is no Advance directive/ Living Will on chart, PPS 20% I reviewed medical records, all diagnostic studies, examined patient in the bed and met with her daughter for the family meeting. Patient seen and examined in bed, looking chronically ill. Patient is alert, but altered. Patient intends to answer questions but can not find the right result. Appears tired. Right eye is with bulging and ptosis. Mild edema to upper and lower extremities. Breath sounds normal, abdomen soft, urine to Shine bag clear. patient does not appear able to fallow discussion and participate in goals of care planing. Goals of care discussed with daughter Amanda and son Tony who called in. Clinical presentation reviewed and most recent blood work. The most common symptoms of Myasthenia Gravis reviewed as well and son instructed about Myasthenia Gravis web site as he requested. Both, the son and daughter are looking forward patient being discharged to [facility] and to return home ultimately. Code status discussed. The son Tony admitted having the same discussion with Doctor Foster and needed more time to think about it. I corrected his knowledge regarding POLST form and its benefices/purpose. I provided family with my contact information with idea to revisit this topic in day or so. Impression * Chronically ill patient with severe anemia and multiple blood transfusions * Newly diagnosed and treated for Myasthenia Gravis * Patient's wishes for the end of life care are not known * Son and daughter are advocating for the patient and looking forward her return home post [facility] * Code status discussed; family asked for more time to think about it Suggestion * Assist with ADLs * Max ramos with repositioning * Monitor for abnormal bleeding * [facility] discharge when ready I will fallow up with family regarding Code status. Thank raymond for consulting Palliative Care
--- NOTE | 2017-04-02 16:33 | PN ---
DATE: SUBJECTIVE: Patient is awake, alert, in bed, feels tired. PHYSICAL EXAMINATION: VITAL SIGNS: She is afebrile. Her blood pressure is 160/76, pulse 66 per minute, respirations 16, her oxygen saturation is 96%. HEART: Regular with no gallop rhythm. LUNGS: Diminished breath sounds over lung bases, rhonchi decreased. ABDOMEN: Soft. EXTREMITIES: Legs, there is some ankle swelling and hyperpigmented scaly skin over both lower legs. LABORATORY DATA: Her white count is 29,300, hemoglobin 8.5, and platelet count is 37,000. Her INR is 1.5, serum sodium 141, potassium 3.9, chloride 113, BUN 20, creatinine 0.6, GFR is over 60, blood sugar is 224. AST 56, ALT 65, alkaline phosphatase is increased at 1177, albumin is 3, and globulin 2. Chest x-ray shows some pulmonary congestive changes. IMPRESSION: Respiratory insufficiency, sepsis, pneumonitis, emphysema, chronic obstructive pulmonary disease, diabetes mellitus, severe thrombocytopenia and anemia with myelodysplasia, arthralgia. PLAN: To continue with her current medications and follow up with hem-oncologist, infectious disease as well as neurologist. Abundio Silva MD
[2017-04-02 16:54] LABS: FOLATE 7.7 ng/mL
[2017-04-02] MEDS ORDERED: Immune Globulin 50 MG/ML (OCTAGAM 5%) 10 GM/200 ML IV SCH (17:00)
[2017-04-02] MEDS: Immune Globulin 50 MG/ML 600 ML IV SCH (20:00)
[2017-04-02] MEDS: Erythromycin 0.5% Ophth Oint 1 APPLIC/3.5 G OD SCH (21:56)
[2017-04-02] MEDS: (Lantus) Insulin Glargine, Recombinant SC SCH (21:59)
[2017-04-03] MEDS: metroNIDAZOLE IV 500 mg/100 ml 500 MG/100 ML BAG IVPB SCH ×2 (01:59→10:44)
[2017-04-03 07:32] LABS: RBC URINE 53 /hpf (0-3); URINE BACTERIA RARE (<OCC); URINE BILIRUBIN NEGATIVE (NEGATIVE); URINE BLOOD 2+ (NEGATIVE); URINE COLOR Yellow (YELLOW); URINE GLUCOSE (UA) 1+ mg/dL (Normal); URINE KETONE NEGATIVE (NEGATIVE); URINE LEUKOCYTE ESTERASE 1+ Leu/uL (Negative); URINE PROTEIN NEGATIVE (NEGATIVE); URINE UROBILINOGEN NORMAL mg/dL (0.2-1.0); WBC URINE 45 /hpf (0-5)
[2017-04-03] MEDS: (Novolin R) Insulin Human Regular 100 units/ml vial SC SCH ×4 (08:30→21:41)
[2017-04-03] MEDS: Albumin Human 25% (12.5 gm/50 ml) IV SCH (10:15)
[2017-04-03] MEDS: Potassium Chloride 20 mEq/15 ml LIQ UD PO SCH ×2 (10:19→18:32)
[2017-04-03] MEDS: Dexamethasone 4 mg/1 ml IV SCH (10:19)
[2017-04-03 10:25] LABS: RED CELL DISTRIBUTION WIDTH 19.6 % (11.5-14.5)
[2017-04-03 10:31] LABS: HEMATOCRIT 29.8 % (34.0-47.0); MEAN CORPUSCULAR HEMOGLOBIN 28.1 pg (27.0-31.0); MEAN CORPUSCULAR HGB CONC 32.2 g/dL (33.0-37.0); MEAN PLATELET VOLUME 8.8 fL (7.2-11.7); WHITE BLOOD COUNT 35.8 K/uL (4.8-10.8)
--- NOTE | 2017-04-03 12:09 | EEG ---
DATE: 03/29/17 This is a 16-channel electroencephalogram of an awake and lethargic adult. The photic stimulation was performed. Hyperventilation was not performed. The resting electroencephalogram consists of 20 to 30 microvolts, diffuse theta activities seen at parietal and occipital leads. Anteriorly, fast activity superimposed with 2 to 3 Hz delta activities seen. Intermittent movement artifact and muscle artifact contaminated with background rhythm. The photic stimulation did not evoke driving response noted at 2 to 20 Hz. There is evidence of polyspike and wave activities noted in occipital leads suggestive of an epileptiform focus. IMPRESSION: This is an abnormal electroencephalogram because of persistent slowing throughout the record suggestive of bilateral cerebral dysfunction. This is probably secondary to metabolic, vascular, or degenerative process. There are polyspike and wave activities over the occipital leads consistent epileptiform focus. Please correlate the findings with neurological and radiological studies. Javad Cota MD
[2017-04-03] MEDS: Immune Globulin 50 MG/ML 600 ML IV SCH (18:27)
[2017-04-03] MEDS: Erythromycin 0.5% Ophth Oint 1 APPLIC/3.5 G OD SCH (21:40)
[2017-04-03] MEDS: (Lantus) Insulin Glargine, Recombinant SC SCH (21:41)
--- NOTE | 2017-04-03 23:11 | CP.PCM.PN ---
Subjective - Date & Time of Evaluation Date of Evaluation: 04/03/17 Time of Evaluation: 13:35 - Subjective Subjective: Patient more responsive today. WBC's 35,000 and Hgb 9.6. Will ask Dr Bateman to evaluate for portacath. Objective - Vital Signs/Intake and Output Vital Signs (last 24 hours): Temp Pulse Resp BP Pulse Ox 98.1 F 77 20 157/75 H 98 04/03/17 15:00 04/03/17 15:00 04/03/17 15:00 04/03/17 15:00 04/03/17 15:00 Intake and Output: 04/03/17 04/04/17 18:59 06:59 Intake Total 810 Output Total 1000 350 Balance -190 -350 - Medications Medications: Current Medications Dexamethasone (Decadron Inj) 2 mg IV DAILY [facility] Last Admin: 04/03/17 10:19 Dose: 2 mg Dextrose (Dextrose 50% Inj) 0 ml IVP .STAT PRN; Protocol PRN Reason: Hypoglycemia Protocol Last Admin: 03/14/17 06:59 Dose: 50 ml Epoetin Arturo (Procrit) 10,000 unit SC MWF [facility] Last Admin: 04/02/17 10:00 Dose: 10,000 unit Erythromycin (Erythromycin) 1 applic OD HS [facility] Last Admin: 04/03/17 21:40 Dose: 1 appl Tigecycline 50 mg/ Sodium (Chloride) 100 mls @ 100 mls/hr IVPB Q12H [facility] Last Admin: 04/03/17 14:50 Dose: 100 mls/hr Immune Globulin (Octagam 5%) 600 mls @ 0 mls/hr IV Q24H [facility] PRN Reason: UD Stop: 04/06/17 19:01 Last Admin: 04/03/17 18:27 Dose: 50 mls/hr Insulin Glargine (Lantus) 8 unit SC HS [facility] Last Admin: 04/03/17 21:41 Dose: 8 units Insulin Human Regular (Novolin R) 0 unit SC ACHS [facility] PRN Reason: Protocol Last Admin: 04/03/17 21:41 Dose: Not Given Levetiracetam (Keppra) 500 mg PO BID [facility] Last Admin: 04/03/17 18:32 Dose: 500 mg Lorazepam (Ativan) 0.5 mg PO HS PRN PRN Reason: Anxiety Last Admin: 03/30/17 21:18 Dose: 0.5 mg Ondansetron HCl (Zofran Inj) 4 mg IVP Q6 PRN PRN Reason: Nausea/Vomiting Last Admin: 04/03/17 13:36 Dose: 4 mg Potassium Chloride (Potassium Chloride Oral Soln) 20 meq PO BID [facility] Last Admin: 04/03/17 18:32 Dose: 20 meq Pyridostigmine [place] (Mestinon Tab) 60 mg PO TID [facility] Last Admin: 04/03/17 18:29 Dose: 60 mg Sodium Bicarbonate (Sodium Bicarbonate Tab) 650 mg PO BID [facility] Last Admin: 04/03/17 18:29 Dose: 650 mg - Labs Labs: 04/03/17 10:21 04/02/17 09:36 PT 17.1 SECONDS (9.7-12.2) H 04/02/17 09:36 INR 1.5 04/02/17 09:36 APTT 34 SECONDS (21-34) 04/02/17 09:36 - Constitutional Appears: Chronically Ill - Head Exam Head Exam: NORMOCEPHALIC - Eye Exam Eye Exam: Periorbital swelling - ENT Exam ENT Exam: Normal Exam - Neck Exam Neck Exam: Normal Inspection - Respiratory Exam Respiratory Exam: Decreased Breath Sounds - Cardiovascular Exam Cardiovascular Exam: REGULAR RHYTHM - GI/Abdominal Exam GI & Abdominal Exam: Soft - Rectal Exam Rectal Exam: Deferred - Exam External exam: NORMAL EXTERNAL EXAM - Extremities Exam Extremities Exam: Pedal Edema - Back Exam Back Exam: NORMAL INSPECTION - Neurological Exam Neurological Exam: Alert - Psychiatric Exam Psychiatric exam: Depressed - Skin Skin Exam: Dry Assessment and Plan (1) Myelodysplasia (myelodysplastic syndrome) Status: Acute (2) Severe anemia Status: Acute (3) Degenerative disc disease at L5-S1 level Status: Acute (4) Osteoarthritis Status: Acute (5) Thrombocytopenia Status: Acute (6) Sepsis Status: Acute (7) Carbapenem-resistant bacterial infection Status: Acute (8) Meningioma Status: Acute (9) Myasthenia Status: Acute
[2017-04-04] MEDS ORDERED: Sodium Chloride 0.9% 20 ML IV ONE (07:42)
[2017-04-04] MEDS ORDERED: Lidocaine 1% Inj (20ml) ONE (07:42)
[2017-04-04] MEDS ORDERED: HEPARIN-NS 5,000 UNITS/500 ML 5,000 UNIT/500 ML BAG IV ONE (07:42)
[2017-04-04] MEDS ORDERED: Midazolam 2 MG/2 ML VIAL ONE (07:51)
[2017-04-04] MEDS ORDERED: Propofol 10 mg/ml Inj (20 ML) ONE (08:01)
[2017-04-04] MEDS: EPOETIN ALFA 10,000 UNIT/ML ML SC SCH (08:09)
[2017-04-04] MEDS: (Novolin R) Insulin Human Regular 100 units/ml vial SC SCH ×4 (08:09→21:42)
[2017-04-04] MEDS ORDERED: Etomidate 20 mg/10ml Inj IV ONE (08:09)
--- NOTE | 2017-04-04 09:10 | PCM.SURG1 ---
Surgeon's Initial Post Op Note - Surgeon's Notes Surgeon: britt Control System Computer Scientist: 0 Type of Anesthesia: IV Sedation Anesthesia Administered By: michelle Pre-Operative Diagnosis: avenia Operative Findings: powerport to left jugular vein Post-Operative Diagnosis: same Operation Performed: powerport to /via left jugular vein Specimen/Specimens Removed: 0 Estimated Blood Loss: EBL {In ML}: 10 Blood Products Given: N/A Drains Used: No Drains Post-Op Condition: Good Date of Surgery/Procedure: 04/04/17 Time of Surgery/Procedure: 09:10
[2017-04-04] MEDS: Dexamethasone 4 mg/1 ml IV SCH (10:26)
[2017-04-04] MEDS: Potassium Chloride 20 mEq/15 ml LIQ UD PO SCH ×2 (10:26→17:49)
--- NOTE | 2017-04-04 10:38 | RAD ---
HISTORY: left portacath COMPARISON: 04/02/2017 FINDINGS: LUNGS: Ill-defined multifocal bilateral pulmonary parenchymal opacities, grossly unchanged. . PLEURA: Probable small left pleural effusion. No right pleural effusion. CARDIOVASCULAR: Normal heart size. Congestive change. Left central venous infusion port, new since prior examination. . Right tunneled central venous dialysis catheter. OSSEOUS STRUCTURES: No significant abnormalities. VISUALIZED UPPER ABDOMEN: Normal. OTHER FINDINGS: None. IMPRESSION: Bilateral multifocal parenchymal opacities. Small left pleural effusion. New left central venous infusion port. Congestive change noted.
--- NOTE | 2017-04-04 11:45 | PN ---
DATE OF EVALUATION: 04/04/2017 NEUROLOGICAL PROBLEM: Myasthenia gravis with metabolic syndrome. VITAL SIGNS: Blood pressure 141/81, mean arterial pressure of 101, respiratory rate is 20, temperature 97.3 with pulse rate 75. The patient is sleepy, arousable on calling her name. Moves all four extremities. No involuntary movements noted. The patient has been getting intravenous immunoglobulin as requested. The patient also tolerating well with Keppra at the current dose. Her mentation seems to be intact except the patient has probably secondary to her metabolic issues. Continue the current recommendation. The patient will be followed closely with you. Javad Cota MD
[2017-04-04 14:35] LABS: BASO # 0.1 K/uL (0.0-0.2); BASO % 0.2 % (0.0-2.0); LYMPH # 1.1 K/uL (1.0-4.3); LYMPH % 2.9 % (20.0-40.0); MEAN CELL VOLUME 86.3 fL (81.0-99.0); MEAN CORPUSCULAR HEMOGLOBIN 27.9 pg (27.0-31.0); MEAN CORPUSCULAR HGB CONC 32.4 g/dL (33.0-37.0); MEAN PLATELET VOLUME 6.3 fL (7.2-11.7); MONO # 9.1 K/uL (0.0-0.8); MONO % 23.5 % (0.0-10.0); NRBC % 0.7 % (0.0-2.0); PLATELET COUNT 62 K/uL (130-400); RED CELL DISTRIBUTION WIDTH 20.3 % (11.5-14.5)
[2017-04-04 14:42] LABS: WHITE BLOOD COUNT 38.6 K/uL (4.8-10.8)
[2017-04-04 14:52] LABS: ALB/GLOB RATIO 0.6 (1.0-2.1); ALKALINE PHOSPHATASE 797 U/L (38-126); ALT/SGPT 43 U/L (9-52); AST/SGOT 20 U/L (14-36); BILIRUBIN,TOTAL 1.3 mg/dL (0.2-1.3); BLOOD UREA NITROGEN 20 mg/dL (7-17); CARBON DIOXIDE 28 mmol/L (22-30); CHLORIDE 110 mmol/L (98-107); GFR AFRICAN-AMERICAN > 60; GLUCOSE,RANDOM 177 mg/dL (65-105); POTASSIUM 2.9 mmol/L (3.6-5.2); SODIUM 142 mmol/L (132-148)
--- NOTE | 2017-04-04 15:24 | OP ---
PROCEDURE DATE: 04/04/2017 PREOPERATIVE DIAGNOSES: Lack of venous access and thrombocytopenia. PROCEDURE CARRIED OUT: Placement of Port-A-Cath, PowerPort type, left jugular vein with C-arm fluoroscopy, ultrasound-guided puncture and micropuncture technique. SURGEON: Oliverio Bateman Jr., MD SENIOR BACKUP ADMINISTRATOR: None. TYPE OF ANESTHESIA: Local with sedation. ANESTHESIA ADMINISTERED BY: Kai Blair CRNA OPERATIVE FINDINGS: Catheter was inserted uneventfully via the jugular vein. INDICATIONS: The patient is an elderly woman with multiple medical problems, thrombocytopenia, and coagulation disorder, who presents with a need for venous access. DESCRIPTION OF PROCEDURE: The patient was given local anesthesia and intravenous antibiotics had previously been administered. The skin was prepped. Using ultrasound guidance and micropuncture technique, the left jugular vein was cannulated. Under fluoroscopic control, the guidewire was advanced centrally. Sheath dilator was passed over this and larger wire was exchanged for this and then the sheath dilator was passed and catheter was passed to the superior vena cava, right atrium, and originating in the left subclavian vein. It was flushed with heparinized saline with good return and good flow. Blood loss was less than 10 mL. Ultrasound images of the neck show that the vein was 10 mm in diameter with normal compressibility and no intraluminal thrombosis. Oliverio Bateman Jr., MD
[2017-04-04 15:45] LABS: NEUTROPHIL 80 % (50-75); TOTAL CELLS COUNTED 100
[2017-04-04 15:46] LABS: GIANT PLATELETS PRESENT
--- NOTE | 2017-04-04 18:56 | PN ---
DATE: SUBJECTIVE: The patient is awake in bed. PHYSICAL EXAMINATION: GENERAL: She is not in any acute distress while she is in Marshall's position. VITAL SIGNS: She is afebrile with blood pressure 144/68, pulse 71, respirations 20, hemoglobin oxygen saturation of 95% on 2 L of oxygen via nasal cannula. HEART: Regular. No gallop rhythm. LUNGS: Diminished breath sounds over the left bases. ABDOMEN: Soft. EXTREMITIES: Legs, slight ankle edema present. LABORATORY DATA: White count is 35,800, hemoglobin 9.6, platelet count 31,000. Blood sugar is 231. Urine showed white blood cells 25, rbc's . Chest x-ray shows pulmonary congestive changes. IMPRESSION: Respiratory insufficiency, myelodysplasia and severe thrombocytopenia and anemia, diabetes mellitus, pneumonitis, sepsis, urosepsis, emphysema. The patient was seen by Infectious Disease consult with specialist, Hematology/Oncology, vascular surgeon, neurologist and a investment fund manager. In view of pulmonary congestive changes, we will give her Lasix. PLAN: To continue with the current measures and specialists followup. Abundio Silva MD
[2017-04-04] MEDS: Immune Globulin 50 MG/ML 600 ML IV SCH (19:22)
[2017-04-04] MEDS: Erythromycin 0.5% Ophth Oint 1 APPLIC/3.5 G OD SCH (21:43)
[2017-04-04] MEDS: (Lantus) Insulin Glargine, Recombinant SC SCH (21:43)
--- NOTE | 2017-04-04 22:53 | CP.PCM.PN ---
Subjective - Date & Time of Evaluation Date of Evaluation: 04/04/17 Time of Evaluation: 13:30 - Subjective Subjective: Patient had a new portacath inplated by Dr Bateman. Latest Hct 30. Continue supportive measures. Objective - Vital Signs/Intake and Output Vital Signs (last 24 hours): Temp Pulse Resp BP Pulse Ox 97.4 F L 74 20 157/84 H 99 04/04/17 16:00 04/04/17 16:00 04/04/17 16:00 04/04/17 19:24 04/04/17 16:00 Intake and Output: 04/04/17 04/05/17 18:59 06:59 Intake Total 450 750 Output Total 475 1100 Balance -25 -350 - Medications Medications: Current Medications Albuterol Sulfate (Albuterol 0.042% Inhal Tricia (1.25mg/3ml) Ud) 1.25 mg INH RTID [facility] Dexamethasone (Decadron Inj) 2 mg IV DAILY [facility] Last Admin: 04/04/17 10:26 Dose: Not Given Dextrose (Dextrose 50% Inj) 0 ml IVP .STAT PRN; Protocol PRN Reason: Hypoglycemia Protocol Last Admin: 03/14/17 06:59 Dose: 50 ml Epoetin Arturo (Procrit) 10,000 unit SC MWF [facility] Last Admin: 04/04/17 08:09 Dose: Not Given Erythromycin (Erythromycin) 1 applic OD HS [facility] Last Admin: 04/04/17 21:43 Dose: 1 appl Tigecycline 50 mg/ Sodium (Chloride) 100 mls @ 100 mls/hr IVPB Q12H [facility] Last Admin: 04/04/17 14:37 Dose: 100 mls/hr Immune Globulin (Octagam 5%) 600 mls @ 0 mls/hr IV Q24H [facility] PRN Reason: UD Stop: 04/06/17 19:01 Last Admin: 04/04/17 19:22 Dose: 600 mls/hr Potassium Chloride (Potassium Chloride 20 Meq/100 Ml) 20 meq in 100 mls @ 50 mls/hr IVPB Q2H [facility] Stop: 04/04/17 23:14 Last Admin: 04/04/17 22:39 Dose: 50 mls/hr Fluconazole (Diflucan Iv 200 Mg/100 Ml Ns) 100 mls @ 100 mls/hr IVPB DAILY [facility] Insulin Glargine (Lantus) 8 unit SC HS [facility] Last Admin: 04/04/17 21:43 Dose: 8 units Insulin Human Regular (Novolin R) 0 unit SC ACHS [facility] PRN Reason: Protocol Last Admin: 04/04/17 21:42 Dose: Not Given Levetiracetam (Keppra) 500 mg PO BID [facility] Last Admin: 04/04/17 17:39 Dose: 500 mg Lorazepam (Ativan) 0.5 mg PO HS PRN PRN Reason: Anxiety Last Admin: 03/30/17 21:18 Dose: 0.5 mg Ondansetron HCl (Zofran Inj) 4 mg IVP Q6 PRN PRN Reason: Nausea/Vomiting Last Admin: 04/03/17 13:36 Dose: 4 mg Potassium Chloride (Potassium Chloride Oral Soln) 20 meq PO BID [facility] Last Admin: 04/04/17 17:49 Dose: 20 meq Pyridostigmine [place] (Mestinon Tab) 60 mg PO TID [facility] Last Admin: 04/04/17 17:39 Dose: 60 mg Sodium Bicarbonate (Sodium Bicarbonate Tab) 650 mg PO BID [facility] Last Admin: 04/04/17 17:40 Dose: 650 mg - Labs Labs: 04/04/17 14:29 04/04/17 14:29 PT 17.1 SECONDS (9.7-12.2) H 04/02/17 09:36 INR 1.5 04/02/17 09:36 APTT 34 SECONDS (21-34) 04/02/17 09:36 - Constitutional Appears: Chronically Ill - Head Exam Head Exam: NORMOCEPHALIC - Eye Exam Eye Exam: Normal appearance - ENT Exam ENT Exam: Normal Exam - Neck Exam Neck Exam: Normal Inspection - Respiratory Exam Respiratory Exam: Decreased Breath Sounds - Cardiovascular Exam Cardiovascular Exam: REGULAR RHYTHM - GI/Abdominal Exam GI & Abdominal Exam: Normal Bowel Sounds - Rectal Exam Rectal Exam: Deferred - Exam External exam: NORMAL EXTERNAL EXAM - Extremities Exam Extremities Exam: Tenderness - Back Exam Back Exam: NORMAL INSPECTION - Neurological Exam Neurological Exam: Altered - Psychiatric Exam Psychiatric exam: Depressed - Skin Skin Exam: Dry Assessment and Plan (1) Myelodysplasia (myelodysplastic syndrome) Status: Acute (2) Severe anemia Status: Acute (3) Degenerative disc disease at L5-S1 level Status: Acute (4) Osteoarthritis Status: Acute (5) Thrombocytopenia Status: Acute (6) Sepsis Status: Acute (7) Carbapenem-resistant bacterial infection Status: Acute (8) Meningioma Status: Acute (9) Myasthenia Status: Acute
--- NOTE | 2017-04-04 22:57 | CARD ---
APPROVED REPORT EKG Measurement Heart [id number] VT 142P-2 [id number] <Conclusion> Normal sinus rhythm ST & T wave abnormality, consider inferolateral ischemia Prolonged QT Abnormal ECG
[2017-04-05] MEDS: Albuterol 0.042% Inhal Sol (1.25 mg/3 mL) UD INH SCH ×3 (07:35→19:39)
[2017-04-05] MEDS: (Novolin R) Insulin Human Regular 100 units/ml vial SC SCH ×4 (08:09→22:00)
--- NOTE | 2017-04-05 09:11 | RAD ---
PROCEDURE: Intraoperative Fluoroscopy. HISTORY: RAHELIA FINDINGS: Fluoroscopic assistance was provided for Port-A-Cath insertion.
[2017-04-05] MEDS: Dexamethasone 4 mg/1 ml IV SCH (10:58)
[2017-04-05] MEDS: Potassium Chloride 20 mEq/15 ml LIQ UD PO SCH ×3 (10:58→18:00)
[2017-04-05] MEDS: Fluconazole IV 200mg/100 ml NS 100 ML IVPB SCH (10:59)
[2017-04-05] MEDS ORDERED: Propofol 10 mg/ml Inj (20 ML) ONE (11:35)
--- NOTE | 2017-04-05 11:42 | CP.PCM.PN ---
Subjective - Date & Time of Evaluation Date of Evaluation: 04/05/17 Time of Evaluation: 11:40 - Subjective Subjective: Podiatry Progress Note- Dr. Thompson: 76 yo patient seen at bedside today for f/u of prior right heel ulceration. Seen resting in bed with offloading boots in place. Patient non-verbal at time of visit, though reactive to person and instructions. Pt indicates not new pedal complaints, non-verbally. Objective - Vital Signs/Intake and Output Vital Signs (last 24 hours): Temp Pulse Resp BP Pulse Ox 97.4 F L 75 20 138/82 97 04/05/17 08:48 04/05/17 08:48 04/05/17 08:48 04/05/17 08:48 04/05/17 08:48 Intake and Output: 04/05/17 04/05/17 06:59 18:59 Intake Total 870 Output Total 3100 Balance -2230 - Medications Medications: Current Medications Albuterol Sulfate (Albuterol 0.042% Inhal Tricia (1.25mg/3ml) Ud) 1.25 mg INH RTID [facility] Last Admin: 04/05/17 07:35 Dose: 1.25 mg Dexamethasone (Decadron Inj) 2 mg IV DAILY [facility] Last Admin: 04/05/17 10:58 Dose: 2 mg Dextrose (Dextrose 50% Inj) 0 ml IVP .STAT PRN; Protocol PRN Reason: Hypoglycemia Protocol Last Admin: 03/14/17 06:59 Dose: 50 ml Epoetin Arturo (Procrit) 10,000 unit SC MWF [facility] Last Admin: 04/04/17 08:09 Dose: Not Given Erythromycin (Erythromycin) 1 applic OD HS [facility] Last Admin: 04/04/17 21:43 Dose: 1 appl Tigecycline 50 mg/ Sodium (Chloride) 100 mls @ 100 mls/hr IVPB Q12H [facility] Last Admin: 04/05/17 02:07 Dose: 100 mls/hr Immune Globulin (Octagam 5%) 600 mls @ 0 mls/hr IV Q24H [facility] PRN Reason: UD Stop: 04/06/17 19:01 Last Admin: 04/04/17 19:22 Dose: 600 mls/hr Fluconazole (Diflucan Iv 200 Mg/100 Ml Ns) 100 mls @ 100 mls/hr IVPB DAILY [facility] Last Admin: 04/05/17 10:59 Dose: 100 mls/hr Insulin Glargine (Lantus) 8 unit SC HS [facility] Last Admin: 04/04/17 21:43 Dose: 8 units Insulin Human Regular (Novolin R) 0 unit SC ACHS [facility] PRN Reason: Protocol Last Admin: 04/05/17 08:09 Dose: Not Given Levetiracetam (Keppra) 500 mg PO BID [facility] Last Admin: 04/05/17 11:05 Dose: Not Given Lorazepam (Ativan) 0.5 mg PO HS PRN PRN Reason: Anxiety Last Admin: 03/30/17 21:18 Dose: 0.5 mg Ondansetron HCl (Zofran Inj) 4 mg IVP Q6 PRN PRN Reason: Nausea/Vomiting Last Admin: 04/03/17 13:36 Dose: 4 mg Potassium Chloride (Potassium Chloride Oral Soln) 20 meq PO BID [facility] Last Admin: 04/05/17 10:58 Dose: Not Given Pyridostigmine [place] (Mestinon Tab) 60 mg PO TID [facility] Last Admin: 04/05/17 11:00 Dose: Not Given Sodium Bicarbonate (Sodium Bicarbonate Tab) 650 mg PO BID [facility] Last Admin: 04/05/17 11:00 Dose: Not Given - Labs Labs: 04/04/17 14:29 04/04/17 14:29 PT 17.1 SECONDS (9.7-12.2) H 04/02/17 09:36 INR 1.5 04/02/17 09:36 APTT 34 SECONDS (21-34) 04/02/17 09:36 - Constitutional Appears: Well, Non-toxic, No Acute Distress - Extremities Exam Additional comments: BL lower ext exam: VASC- pedal pulses faintly palpable, cft >4 sec to all digits, chronic lymphadema DERM: Optifoam are intact bilaterally. Right plantar central heel hyperkeratotic lesion noted. No signs of deep tissue injury bilaterally. NEURO- pedal sensation somewhat diminished ORTHO- slight tenderness to palp bl heels - Neurological Exam Neurological Exam: Alert, Awake, Oriented x3 Assessment and Plan - Assessment and Plan (Free Text) Assessment: 76 yo female patient w/ chronic lymphadema to lower extremities, resolved right foot ulcer, resolved deep tissue injury. Plan: Patient seen and evaluated at bedside. Plan discussed with Dr. Thompson Pt is clinically same form podiatric standpoint c/w offloading heel boots stable per podiatry, will monitor
--- NOTE | 2017-04-05 11:57 | CP.PCM.PN ---
Subjective - Date & Time of Evaluation Date of Evaluation: 04/05/17 Time of Evaluation: 07:20 - Subjective Subjective: Surgery progress note. Dr. Bateman No acute events overnight as per nursing staff. Resting in bed. Left port side clean, dry and intact. Objective - Vital Signs/Intake and Output Vital Signs (last 24 hours): Temp Pulse Resp BP Pulse Ox 97.4 F L 75 20 138/82 97 04/05/17 08:48 04/05/17 08:48 04/05/17 08:48 04/05/17 08:48 04/05/17 08:48 Intake and Output: 04/05/17 04/05/17 06:59 18:59 Intake Total 870 Output Total 3100 Balance -2230 - Medications Medications: Current Medications Albuterol Sulfate (Albuterol 0.042% Inhal Tricia (1.25mg/3ml) Ud) 1.25 mg INH RTID [facility] Last Admin: 04/05/17 07:35 Dose: 1.25 mg Dexamethasone (Decadron Inj) 2 mg IV DAILY [facility] Last Admin: 04/05/17 10:58 Dose: 2 mg Dextrose (Dextrose 50% Inj) 0 ml IVP .STAT PRN; Protocol PRN Reason: Hypoglycemia Protocol Last Admin: 03/14/17 06:59 Dose: 50 ml Epoetin Arturo (Procrit) 10,000 unit SC MWF [facility] Last Admin: 04/04/17 08:09 Dose: Not Given Erythromycin (Erythromycin) 1 applic OD [facility] Last Admin: 04/04/17 21:43 Dose: 1 appl Tigecycline 50 mg/ Sodium (Chloride) 100 mls @ 100 mls/hr IVPB Q12H [facility] Last Admin: 04/05/17 02:07 Dose: 100 mls/hr Immune Globulin (Octagam 5%) 600 mls @ 0 mls/hr IV Q24H [facility] PRN Reason: UD Stop: 04/06/17 19:01 Last Admin: 04/04/17 19:22 Dose: 600 mls/hr Fluconazole (Diflucan Iv 200 Mg/100 Ml Ns) 100 mls @ 100 mls/hr IVPB DAILY [facility] Last Admin: 04/05/17 10:59 Dose: 100 mls/hr Insulin Glargine (Lantus) 8 unit SC [facility] Last Admin: 04/04/17 21:43 Dose: 8 units Insulin Human Regular (Novolin R) 0 unit SC ACHS [facility] PRN Reason: Protocol Last Admin: 04/05/17 08:09 Dose: Not Given Levetiracetam (Keppra) 500 mg PO BID [facility] Last Admin: 04/05/17 11:05 Dose: Not Given Lorazepam (Ativan) 0.5 mg PO HS PRN PRN Reason: Anxiety Last Admin: 03/30/17 21:18 Dose: 0.5 mg Ondansetron HCl (Zofran Inj) 4 mg IVP Q6 PRN PRN Reason: Nausea/Vomiting Last Admin: 04/03/17 13:36 Dose: 4 mg Potassium Chloride (Potassium Chloride Oral Soln) 20 meq PO BID [facility] Last Admin: 04/05/17 10:58 Dose: Not Given Pyridostigmine [place] (Mestinon Tab) 60 mg PO TID [facility] Last Admin: 04/05/17 11:00 Dose: Not Given Sodium Bicarbonate (Sodium Bicarbonate Tab) 650 mg PO BID [facility] Last Admin: 04/05/17 11:00 Dose: Not Given - Labs Labs: 04/04/17 14:29 04/04/17 14:29 PT 17.1 SECONDS (9.7-12.2) H 04/02/17 09:36 INR 1.5 04/02/17 09:36 APTT 34 SECONDS (21-34) 04/02/17 09:36 - Constitutional Appears: Non-toxic, No Acute Distress - Head Exam Head Exam: ATRAUMATIC, NORMAL INSPECTION, NORMOCEPHALIC - Eye Exam Eye Exam: EOMI - ENT Exam ENT Exam: Mucous Membranes Moist - Neck Exam Additional comments: left IJ bandage changed. - Cardiovascular Exam Additional comments: Left chest wall port placed. Dressing clean, dry and intact. - GI/Abdominal Exam GI & Abdominal Exam: Soft. absent: Guarding, Rigid, Tenderness Assessment and Plan - Assessment and Plan (Free Text) Assessment: 76yo F with MDS and multiple comorbidities. POD 1 s/p portacath placement Left IJ - Continue medical management - No further acute surgical intervention Further recs as per Dr. Fransico Cheng PGY1 surgery pager: [phone]
[2017-04-05 13:25] LABS: BASO # 0.1 K/uL (0.0-0.2); BASO % 0.3 % (0.0-2.0); HEMATOCRIT 32.4 % (34.0-47.0); LYMPH # 1.1 K/uL (1.0-4.3); LYMPH % 2.4 % (20.0-40.0); MEAN CELL VOLUME 86.3 fL (81.0-99.0); MEAN CORPUSCULAR HEMOGLOBIN 27.8 pg (27.0-31.0); MEAN CORPUSCULAR HGB CONC 32.2 g/dL (33.0-37.0); MEAN PLATELET VOLUME 7.2 fL (7.2-11.7); MONO # 7.9 K/uL (0.0-0.8); MONO % 17.9 % (0.0-10.0); NRBC % 0.8 % (0.0-2.0); RED CELL DISTRIBUTION WIDTH 20.1 % (11.5-14.5)
[2017-04-05 13:37] LABS: PLATELET COUNT 42 K/uL (130-400); WHITE BLOOD COUNT 44.3 K/uL (4.8-10.8)
[2017-04-05 13:44] LABS: BLOOD UREA NITROGEN 23 mg/dL (7-17); CALCIUM 7.8 mg/dl (8.6-10.4); CARBON DIOXIDE 30 mmol/L (22-30); CHLORIDE 108 mmol/L (98-107); GFR AFRICAN-AMERICAN > 60; GLUCOSE,RANDOM 176 mg/dL (65-105); POTASSIUM 2.9 mmol/L (3.6-5.2); SODIUM 143 mmol/L (132-148)
[2017-04-05 13:56] LABS: NEUTROPHIL 80 % (50-75); NUCLEATED RED BLOOD CELL 2 % (0-0); TOTAL CELLS COUNTED 100
[2017-04-05] MEDS ORDERED: Potassium Chloride 20 mEq ER Tab PO SCH (14:00)
--- NOTE | 2017-04-05 16:36 | PN ---
DATE: SUBJECTIVE: The patient is in bed. She is tired. PHYSICAL EXAMINATION: VITAL SIGNS: She is afebrile with blood pressure of 138/82, pulse 75 per minute, respirations 20, hemoglobin oxygen saturation of 97% on O2 two liters via nasal cannula. HEART: Regular. There is no gallop rhythm. LUNGS: Reveal diminished breath sounds over the lung bases. Rhonchi decreased. ABDOMEN: Soft. EXTREMITIES: Legs having an ankle edema hyperkeratotic pigmented scaly skin. LABORATORY DATA: Lab studies show white count of 44,300, hemoglobin 10.4, and platelet count 42,000. Serum sodium is 143, potassium 2.9, chloride 108, BUN 23, creatinine 0.6, GFR is over 60, glucose 176. IMPRESSION: Respiratory insufficiency, sepsis, hypertensive cardiovascular disease, pulmonary congestive changes, diabetes mellitus, myelodysplasia with severe anemia,thrombocytopenia, and electrolyte imbalance. PLAN: To continue with current therapy and we will give her potassium chloride replacement because of low serum potassium. Abundio Silva MD
--- NOTE | 2017-04-05 16:51 | RAD ---
HISTORY: chf COMPARISON: 04/04/2017 FINDINGS: LUNGS: No dense consolidation PLEURA: Small left pleural effusion. Similar CARDIOVASCULAR: Cardiomegaly. Pulmonary venous congestion similar on the left side. Possible minimally increased aeration on the right OSSEOUS STRUCTURES: Thoracic spondylosis. VISUALIZED UPPER ABDOMEN: IVC filter right L2-3 level OTHER FINDINGS: Left central venous infusion port tip able atrial junction similar. Right tunneled central venous dialysis catheter similar IMPRESSION: Cardiomegaly and pulmonary venous congestion small left pleural effusion. Findings consistent with mild CHF. Left hemithorax similar possible minimal increased aeration within right lung. No interval dense consolidation
--- NOTE | 2017-04-05 17:47 | CP.PCM.PN ---
Subjective - Date & Time of Evaluation Date of Evaluation: 04/05/17 Time of Evaluation: 11:00 - Subjective Subjective: LETHARGIC BUT RESPONSIVE. Objective - Vital Signs/Intake and Output Vital Signs (last 24 hours): Temp Pulse Resp BP Pulse Ox 97.3 F L 68 20 152/84 H 99 04/05/17 15:00 04/05/17 15:00 04/05/17 15:00 04/05/17 15:00 04/05/17 15:00 Intake and Output: 04/05/17 04/05/17 06:59 18:59 Intake Total 870 200 Output Total 3100 300 Balance -2230 -100 - Medications Medications: Current Medications Albuterol Sulfate (Albuterol 0.042% Inhal Tricia (1.25mg/3ml) Ud) 1.25 mg INH RTID [facility] Last Admin: 04/05/17 13:39 Dose: Not Given Dexamethasone (Decadron Inj) 2 mg IV DAILY [facility] Last Admin: 04/05/17 10:58 Dose: 2 mg Dextrose (Dextrose 50% Inj) 0 ml IVP .STAT PRN; Protocol PRN Reason: Hypoglycemia Protocol Last Admin: 03/14/17 06:59 Dose: 50 ml Epoetin Arturo (Procrit) 10,000 unit SC MWF [facility] Last Admin: 04/04/17 08:09 Dose: Not Given Erythromycin (Erythromycin) 1 applic OD HS [facility] Last Admin: 04/04/17 21:43 Dose: 1 appl Tigecycline 50 mg/ Sodium (Chloride) 100 mls @ 100 mls/hr IVPB Q12H [facility] Last Admin: 04/05/17 14:37 Dose: 100 mls/hr Immune Globulin (Octagam 5%) 600 mls @ 0 mls/hr IV Q24H [facility] PRN Reason: UD Stop: 04/06/17 19:01 Last Admin: 04/04/17 19:22 Dose: 600 mls/hr Fluconazole (Diflucan Iv 200 Mg/100 Ml Ns) 100 mls @ 100 mls/hr IVPB DAILY [facility] Last Admin: 04/05/17 10:59 Dose: 100 mls/hr Potassium Chloride (Potassium Chloride 20 Meq/100 Ml) 20 meq in 100 mls @ 50 mls/hr IVPB Q2H [facility] Stop: 04/05/17 20:44 Last Admin: 04/05/17 17:20 Dose: 50 mls/hr Insulin Glargine (Lantus) 8 unit SC HS [facility] Last Admin: 04/04/17 21:43 Dose: 8 units Insulin Human Regular (Novolin R) 0 unit SC ACHS [facility] PRN Reason: Protocol Last Admin: 04/05/17 17:21 Dose: 2 unit Levetiracetam (Keppra) 500 mg PO BID [facility] Last Admin: 04/05/17 11:05 Dose: Not Given Lorazepam (Ativan) 0.5 mg PO HS PRN PRN Reason: Anxiety Last Admin: 03/30/17 21:18 Dose: 0.5 mg Ondansetron HCl (Zofran Inj) 4 mg IVP Q6 PRN PRN Reason: Nausea/Vomiting Last Admin: 04/03/17 13:36 Dose: 4 mg Potassium Chloride (Potassium Chloride Oral Soln) 20 meq PO BID [facility] Last Admin: 04/05/17 10:58 Dose: Not Given Pyridostigmine [place] (Mestinon Tab) 60 mg PO TID [facility] Last Admin: 04/05/17 14:38 Dose: Not Given Sodium Bicarbonate (Sodium Bicarbonate Tab) 650 mg PO BID [facility] Last Admin: 04/05/17 11:00 Dose: Not Given - Labs Labs: 04/05/17 13:15 04/05/17 13:15 PT 17.1 SECONDS (9.7-12.2) H 04/02/17 09:36 INR 1.5 04/02/17 09:36 APTT 34 SECONDS (21-34) 04/02/17 09:36 Assessment and Plan - Assessment and Plan (Free Text) Assessment: Patient is lethargic, has no improvement in the general condition with poor prognosis. On full code as per the family. D/W DR Foster plan to discharge to [facility] when bed available.
[2017-04-05] MEDS: Immune Globulin 50 MG/ML 600 ML IV SCH (19:37)
[2017-04-05] MEDS: Erythromycin 0.5% Ophth Oint 1 APPLIC/3.5 G OD SCH (21:29)
[2017-04-05] MEDS: (Lantus) Insulin Glargine, Recombinant SC SCH (21:29)
--- NOTE | 2017-04-05 22:34 | CP.PCM.PN ---
Subjective - Date & Time of Evaluation Date of Evaluation: 04/05/17 Time of Evaluation: 13:20 - Subjective Subjective: Patient letargic today. Portacath in place. WBC's 44,000, Hct 30 and platlets moderatly decreased. Continue supportive measures. Objective - Vital Signs/Intake and Output Vital Signs (last 24 hours): Temp Pulse Resp BP Pulse Ox 97.3 F L 68 20 152/84 H 99 04/05/17 15:00 04/05/17 15:00 04/05/17 15:00 04/05/17 15:00 04/05/17 15:00 Intake and Output: 04/05/17 04/06/17 18:59 06:59 Intake Total 200 850 Output Total 300 Balance -100 850 - Medications Medications: Current Medications Albuterol Sulfate (Albuterol 0.042% Inhal Tricia (1.25mg/3ml) Ud) 1.25 mg INH RTID [facility] Last Admin: 04/05/17 19:39 Dose: 1.25 mg Dexamethasone (Decadron Inj) 2 mg IV DAILY [facility] Last Admin: 04/05/17 10:58 Dose: 2 mg Dextrose (Dextrose 50% Inj) 0 ml IVP .STAT PRN; Protocol PRN Reason: Hypoglycemia Protocol Last Admin: 03/14/17 06:59 Dose: 50 ml Epoetin Arturo (Procrit) 10,000 unit SC MWF [facility] Last Admin: 04/04/17 08:09 Dose: Not Given Erythromycin (Erythromycin) 1 applic OD HS [facility] Last Admin: 04/05/17 21:29 Dose: 1 appl Tigecycline 50 mg/ Sodium (Chloride) 100 mls @ 100 mls/hr IVPB Q12H [facility] Last Admin: 04/05/17 14:37 Dose: 100 mls/hr Immune Globulin (Octagam 5%) 600 mls @ 0 mls/hr IV Q24H [facility] PRN Reason: UD Stop: 04/06/17 19:01 Last Admin: 04/05/17 19:37 Dose: 600 mls/hr Fluconazole (Diflucan Iv 200 Mg/100 Ml Ns) 100 mls @ 100 mls/hr IVPB DAILY [facility] Last Admin: 04/05/17 10:59 Dose: 100 mls/hr Potassium Chloride (Potassium Chloride 20 Meq/100 Ml) 20 meq in 100 mls @ 50 mls/hr IVPB Q2H [facility] Stop: 04/05/17 23:59 Last Admin: 04/05/17 21:29 Dose: 50 mls/hr Insulin Glargine (Lantus) 8 unit SC HS [facility] Last Admin: 04/05/17 21:29 Dose: 8 units Insulin Human Regular (Novolin R) 0 unit SC ACHS [facility] PRN Reason: Protocol Last Admin: 04/05/17 17:21 Dose: 2 unit Levetiracetam (Keppra) 500 mg PO BID [facility] Last Admin: 04/05/17 17:59 Dose: 500 mg Lorazepam (Ativan) 0.5 mg PO HS PRN PRN Reason: Anxiety Last Admin: 03/30/17 21:18 Dose: 0.5 mg Ondansetron HCl (Zofran Inj) 4 mg IVP Q6 PRN PRN Reason: Nausea/Vomiting Last Admin: 04/03/17 13:36 Dose: 4 mg Potassium Chloride (Potassium Chloride Oral Soln) 20 meq PO BID [facility] Last Admin: 04/05/17 18:00 Dose: Not Given Pyridostigmine [place] (Mestinon Tab) 60 mg PO TID [facility] Last Admin: 04/05/17 17:59 Dose: 60 mg Sodium Bicarbonate (Sodium Bicarbonate Tab) 650 mg PO BID [facility] Last Admin: 04/05/17 17:59 Dose: 650 mg - Labs Labs: 04/05/17 13:15 04/05/17 13:15 PT 17.1 SECONDS (9.7-12.2) H 04/02/17 09:36 INR 1.5 04/02/17 09:36 APTT 34 SECONDS (21-34) 04/02/17 09:36 - Constitutional Appears: Chronically Ill - Head Exam Head Exam: NORMOCEPHALIC - ENT Exam ENT Exam: Normal Exam - Neck Exam Neck Exam: Normal Inspection - Respiratory Exam Respiratory Exam: Decreased Breath Sounds - Cardiovascular Exam Cardiovascular Exam: REGULAR RHYTHM - GI/Abdominal Exam GI & Abdominal Exam: Hyperactive Bowel Sounds - Rectal Exam Rectal Exam: Deferred - Exam External exam: NORMAL EXTERNAL EXAM - Extremities Exam Extremities Exam: Tenderness - Back Exam Back Exam: NORMAL INSPECTION - Neurological Exam Neurological Exam: Altered - Psychiatric Exam Psychiatric exam: Depressed - Skin Skin Exam: Dry Assessment and Plan (1) Myelodysplasia (myelodysplastic syndrome) Status: Acute (2) Severe anemia Status: Acute (3) Degenerative disc disease at L5-S1 level Status: Acute (4) Osteoarthritis Status: Acute (5) Thrombocytopenia Status: Acute (6) Sepsis Status: Acute (7) Carbapenem-resistant bacterial infection Status: Acute (8) Meningioma Status: Acute (9) Myasthenia Status: Acute
[2017-04-06] MEDS: Albuterol 0.042% Inhal Sol (1.25 mg/3 mL) UD INH SCH ×2 (07:32→13:17)
[2017-04-06] MEDS: (Novolin R) Insulin Human Regular 100 units/ml vial SC SCH ×2 (07:46→11:31)
[2017-04-06 08:31] VITALS: RESP 20
[2017-04-06] MEDS: Potassium Chloride 20 mEq/15 ml LIQ UD PO SCH ×2 (09:52→11:34)
[2017-04-06] MEDS: EPOETIN ALFA 10,000 UNIT/ML ML SC SCH (09:52)
[2017-04-06] MEDS: Dexamethasone 4 mg/1 ml IV SCH (09:53)
[2017-04-06] MEDS: Fluconazole IV 200mg/100 ml NS 100 ML IVPB SCH (09:54)
--- NOTE | 2017-04-06 14:01 | RAD ---
HISTORY: chf COMPARISON: 04/05/2017 FINDINGS: LUNGS: Limited evaluation due to oblique positioning. No infiltrate. PLEURA: No right pleural effusion. Questionable opacity at left costophrenic angle suggesting small pleural effusion. Follow-up. No pneumothorax. CARDIOVASCULAR: Normal heart size. No congestive change. Right tunneled central venous dialysis catheter. Left MediPort. OSSEOUS STRUCTURES: No significant abnormalities. VISUALIZED UPPER ABDOMEN: Normal. OTHER FINDINGS: None. IMPRESSION: Possible small left pleural effusion. No infiltrate. Limited examination.
--- NOTE | 2017-04-06 14:47 | PN ---
DATE: SUBJECTIVE: Patient is in bed. Feels tired and lethargic. She is not in acute distress. PHYSICAL EXAMINATION VITAL SIGNS: She is afebrile. Blood pressure 144/78, pulse 78, respirations 20, hemoglobin oxygen saturation of 94% on room air. HEART: Regular, with no gallop rhythm. LUNGS: Revealed diminished breath sounds over the lung bases. ABDOMEN: Soft. EXTREMITIES: Legs show hyperpigmented keratotic scaly skin in the lower legs. Patient remains in bed. LABORATORY DATA: Her blood sugar is 157. Chest x-ray shows slight improvement in pulmonary venous congestion. BMP results are not back yet. 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 PLAN: To continue the current measures and medications. Abundio Silva MD
[2017-04-06 17:06] VITALS: BP 137/80; PULSE 60; TEMP 97.3; O2SAT 100
[2017-04-06] MEDS ORDERED: Influenza Vaccine 60 mcg/0.5 mL SYR (4YR UP) IM ONE (17:07)
--- NOTE | 2017-04-06 17:48 | CP.PCM.PN ---
Subjective - Date & Time of Evaluation Date of Evaluation: 04/06/17 Time of Evaluation: 11:00 - Subjective Subjective: Sleepy but arousable, very lethargic. Poor oral intake. Objective - Vital Signs/Intake and Output Vital Signs (last 24 hours): Temp Pulse Resp BP Pulse Ox 97.3 F L 60 20 137/80 100 04/06/17 16:00 04/06/17 16:00 04/06/17 16:00 04/06/17 16:00 04/06/17 16:00 Intake and Output: 04/06/17 04/06/17 06:59 18:59 Intake Total 850 150 Output Total 80 Balance 850 70 - Medications Medications: Current Medications Albuterol Sulfate (Albuterol 0.042% Inhal Tricia (1.25mg/3ml) Ud) 1.25 mg INH RTID [facility] Last Admin: 04/06/17 13:17 Dose: 1.25 mg Dexamethasone (Decadron Inj) 2 mg IV DAILY [facility] Last Admin: 04/06/17 09:53 Dose: 2 mg Dextrose (Dextrose 50% Inj) 0 ml IVP .STAT PRN; Protocol PRN Reason: Hypoglycemia Protocol Last Admin: 03/14/17 06:59 Dose: 50 ml Epoetin Arturo (Procrit) 10,000 unit SC MWF [facility] Last Admin: 04/06/17 09:52 Dose: 10,000 unit Erythromycin (Erythromycin) 1 applic OD HS [facility] Last Admin: 04/05/17 21:29 Dose: 1 appl Immune Globulin (Octagam 5%) 600 mls @ 0 mls/hr IV Q24H [facility] PRN Reason: UD Stop: 04/06/17 19:01 Last Admin: 04/05/17 19:37 Dose: 600 mls/hr Fluconazole (Diflucan Iv 200 Mg/100 Ml Ns) 100 mls @ 100 mls/hr IVPB DAILY [facility] Last Admin: 04/06/17 09:54 Dose: 100 mls/hr Insulin Glargine (Lantus) 8 unit SC HS [facility] Last Admin: 04/05/17 21:29 Dose: 8 units Insulin Human Regular (Novolin R) 0 unit SC ACHS [facility] PRN Reason: Protocol Last Admin: 04/06/17 11:31 Dose: Not Given Levetiracetam (Keppra) 500 mg PO BID [facility] Last Admin: 04/06/17 11:33 Dose: Not Given Lorazepam (Ativan) 0.5 mg PO HS PRN PRN Reason: Anxiety Last Admin: 03/30/17 21:18 Dose: 0.5 mg Ondansetron HCl (Zofran Inj) 4 mg IVP Q6 PRN PRN Reason: Nausea/Vomiting Last Admin: 04/06/17 11:40 Dose: 4 mg Pyridostigmine [place] (Mestinon Tab) 60 mg PO TID [facility] Last Admin: 04/06/17 14:13 Dose: Not Given Sodium Bicarbonate (Sodium Bicarbonate Tab) 650 mg PO BID [facility] Last Admin: 04/06/17 11:34 Dose: Not Given - Labs Labs: 04/05/17 13:15 04/05/17 13:15 PT 17.1 SECONDS (9.7-12.2) H 04/02/17 09:36 INR 1.5 04/02/17 09:36 APTT 34 SECONDS (21-34) 04/02/17 09:36 Assessment and Plan - Assessment and Plan (Free Text) Assessment: Patient is seen and examined, sleepy but arousable. poor appetite, poor intake. IV antibiotics discontinued as per DR Prabhakar. Plan to discharge to [facility] today under DR Leora Ferreira's service. Family in agreement as per social work faculty member. D/W DR Foster and DR Leora Ferreira. Need to re-evaluate the code status at the [facility]. Patient is not eating, general condition very poor, with poor prognosis. All explained to the family by the attending physician that she is a candidate for comfort care.
--- NOTE | 2017-04-06 17:55 | PCM.HF ---
Heart Failure Core Measure - Heart Failure Ejection Fraction: 40 % or Greater (EF 65%) OCHOA Inhibitor Prescribed: No Contraindication/Reason for not providing: low BP Beta-René Prescribed: None Contraindication/Reason for not providing: V/S not stable Angiotensin II Receptor René Prescribed: No Contraindication/Reason for not providing: low BP AnticoagulationTherapy for Atrial Fibrillation/Atrialflutter: No Contraindication/Reason for not providing: coagulopathy Aldosterone Antagonist Prescribed: No Contraindication/Reason for not providing: EF > 40% Hydralazine Nitrate Prescribed: No Contraindication/Reason for not providing: EF >40% Implantable Cardioverter Defibrillator Therapy: No Contraindication/Reason for not providing: EF >40% Cardiac Resynchronization Therapy Prescribed: No Contraindication/Reason for not providing: not indicated - Follow up Will be discharged to: [facility] ([facility]
--- NOTE | 2017-04-06 23:11 | CP.PCM.DIS ---
Provider - Provider Date of Admission: 03/04/17 18:13 Attending physician: Junito Foster MD Time Spent in preparation of Discharge (in minutes): 28 Diagnosis - Discharge Diagnosis (1) Myelodysplasia (myelodysplastic syndrome) Status: Acute (2) Severe anemia Status: Acute (3) Degenerative disc disease at L5-S1 level Status: Acute Priority: Medium (4) Osteoarthritis Status: Acute Priority: Medium (5) Thrombocytopenia Status: Acute (6) Sepsis Status: Acute (7) Carbapenem-resistant bacterial infection Status: Acute (8) Meningioma Status: Acute (9) Myasthenia Status: Acute Hospital Course - Lab Results Lab Results: Micro Results 03/31/17 10:30 Blood-Venous Blood Culture - Final NO GROWTH AFTER 5 DAYS 03/31/17 10:30 Blood-Venous Gram Stain - Final TEST NOT PERFORMED 03/31/17 08:10 Blood-Venous Blood Culture - Final NO GROWTH AFTER 5 DAYS 03/31/17 08:10 Blood-Venous Gram Stain - Final TEST NOT PERFORMED 04/03/17 08:30 Urine,Catheterized Urine Culture - Final Yeast Species 03/31/17 08:00 Urine Urine Culture - Final No Growth (<1,000 CFU/ML) 03/21/17 06:56 Blood-Venous Blood Culture - Final NO GROWTH AFTER 5 DAYS 03/21/17 06:56 Blood-Venous Gram Stain - Final TEST NOT PERFORMED 03/21/17 06:00 Blood-Venous Blood Culture - Final NO GROWTH AFTER 5 DAYS 03/21/17 06:00 Blood-Venous Gram Stain - Final TEST NOT PERFORMED 03/13/17 11:50 Blood-Venous Blood Culture - Final NO GROWTH AFTER 5 DAYS 03/13/17 11:50 Blood-Venous Gram Stain - Final TEST NOT PERFORMED 03/14/17 16:00 Catheter Site Gram Stain - Final 03/14/17 16:00 Catheter Site Anaerobic Culture - Final NO ANAEROBES ISOLATED. 03/14/17 16:00 Catheter Site Wound Culture - Final No growth. 03/13/17 12:20 Blood-Venous S.aureus & Coag-Neg Staph PNA FISH - Final 03/13/17 12:20 Blood-Venous Blood Culture - Final Coagulase Neg Staphylococcus 03/13/17 12:20 Blood-Venous Gram Stain - Final 03/10/17 06:00 Blood-Venous Blood Culture - Final Klebsiella Pneumoniae Ssp Pneu 03/10/17 06:00 Blood-Venous Gram Stain - Final 03/10/17 05:00 Blood-Venous Blood Culture - Final Klebsiella Pneumoniae Ssp Pneu 03/10/17 05:00 Blood-Venous Gram Stain - Final 03/06/17 05:45 Blood-Thru Central Line Blood Culture - Final Klebsiella Pneumoniae Ssp Pneu 03/06/17 05:45 Blood-Thru Central Line Gram Stain - Final 03/06/17 05:45 Blood-Thru Central Line Blood Culture - Final Klebsiella Pneumoniae 03/06/17 05:45 Blood-Thru Central Line Gram Stain - Final Most Recent Lab Values WBC 44.3 K/uL (4.8-10.8) H* 04/05/17 13:15 RBC 3.75 Mil/uL (3.80-5.20) L 04/05/17 13:15 Hgb 10.4 g/dL (11.0-16.0) L 04/05/17 13:15 Hct 32.4 % (34.0-47.0) L 04/05/17 13:15 MCV 86.3 fL (81.0-99.0) 04/05/17 13:15 MCH 27.8 pg (27.0-31.0) 04/05/17 13:15 MCHC 32.2 g/dL (33.0-37.0) L 04/05/17 13:15 RDW 20.1 % (11.5-14.5) H 04/05/17 13:15 Plt Count 42 K/uL (130-400) L D 04/05/17 13:15 MPV 7.2 fL (7.2-11.7) 04/05/17 13:15 Neut % (Auto) 79.4 % (50.0-75.0) H 04/05/17 13:15 Lymph % (Auto) 2.4 % (20.0-40.0) L 04/05/17 13:15 [place] % (Auto) 17.9 % (0.0-10.0) H 04/05/17 13:15 Eos % (Auto) 0.0 % (0.0-4.0) 04/05/17 13:15 Baso % (Auto) 0.3 % (0.0-2.0) 04/05/17 13:15 Neut # 35.2 K/uL (1.8-7.0) H 04/05/17 13:15 Lymph # 1.1 K/uL (1.0-4.3) 04/05/17 13:15 [place] # 7.9 K/uL (0.0-0.8) H 04/05/17 13:15 Eos # 0.0 K/uL (0.0-0.7) 04/05/17 13:15 Baso # 0.1 K/uL (0.0-0.2) 04/05/17 13:15 Neutrophils % (Manual) 80 % (50-75) H 04/05/17 13:15 Band Neutrophils % 3 % (0-2) H 04/05/17 13:15 Lymphocytes % (Manual) 4 % (20-40) L 04/05/17 13:15 Reactive Lymphs % 1 % (0-0) H 03/23/17 11:14 Monocytes % (Manual) 13 % (0-10) H 04/05/17 13:15 Myelocytes % 1 % (0-0) H 03/26/17 11:49 Nucleated RBC % 2 % (0-0) H 04/05/17 13:15 Differential Comment 03/25/17 12:45 Smudge Cells Present 03/06/17 07:18 Platelet Estimate Decreased (NORMAL) L 04/05/17 13:15 Large Platelets Present 03/04/17 17:15 Giant Platelets Present 04/04/17 14:29 Polychromasia Slight 04/04/17 14:29 Hypochromasia (manual) Slight 04/05/17 13:15 Poikilocytosis (manual Slight 03/27/17 12:13 Anisocytosis (manual) Moderate 04/05/17 13:15 Microcytosis (manual) Slight 03/10/17 07:59 Macrocytosis (manual) Slight 03/14/17 08:58 Spherocytes Slight 03/11/17 12:11 Target Cells Slight 04/05/17 13:15 Tear Drop Cells Slight 03/21/17 07:17 Ovalocytes Slight 04/04/17 14:29 [place] Cells Slight 04/05/17 13:15 Schistocytes Slight 03/31/17 08:17 Smear Path Review 03/05/17 12:48 ESR 94 mm/hr (0-20) H 03/12/17 07:57 Haptoglobin 39 mg/dL (43-212) L 03/26/17 11:49 PT 17.1 SECONDS (9.7-12.2) H 04/02/17 09:36 INR 1.5 04/02/17 09:36 APTT 34 SECONDS (21-34) 04/02/17 09:36 Fibrinogen < 98 mg/dL (200-400) L 03/26/17 11:49 Fibrin Degrad Products Positive (NEGATIVE) H 03/26/17 11:49 Fibrin Degrad Prod, Qt >10<40 ug/mL (<10) H 03/26/17 11:49 Puncture Site Rr 03/18/17 17:23 pCO2 45 mm/Hg (35-45) 03/18/17 17: pO2 44 mm/Hg (30-55) 03/31/17 08:05 HCO3 29.4 mmol/L (21-28) H 03/18/17 17:23 ABG pH 7.44 (7.35-7.45) 03/18/17 17:23 ABG Total CO2 32.0 mmol/L (22-28) H 03/18/17 17:23 ABG O2 Saturation 100.0 % (95-98) H 03/18/17 17:23 ABG Base Excess 5.7 mmol/L (-2.0-3.0) H 03/18/17 17:23 ABG Hemoglobin 10.4 g/dL (11.7-17.4) L 03/18/17 17: ABG Carboxyhemoglobin 2.2 % (0.5-1.5) H 03/18/17 17:23 POC ABG HHb (Measured) 0.0 % (0.0-5.0) 03/18/17 17:23 ABG Methemoglobin 2.3 % (0.0-3.0) 03/18/17 17: Inderjit Test Pos 03/18/17 17:23 VBG pH 7.32 (7.32-7.43) 03/31/17 08:05 VBG pCO2 41 mmHg (40-60) 03/31/17 08:05 VBG HCO3 20.6 mmol/L 03/31/17 08:05 VBG Total CO2 22.4 mmol/L (22-28) 03/31/17 08:05 VBG O2 Sat (Calc) 84.5 % (40-65) H 03/31/17 08:05 VBG Base Excess -4.8 mmol/L (0.0-2.0) L 03/31/17 08:05 VBG Potassium 4.2 mmol/L (3.6-5.2) 03/31/17 08:05 A-a O2 Difference 20.0 mm/Hg 03/18/17 17:23 Respiratory Index 0.1 03/18/17 17:23 Hgb O2 Saturation 95.6 % (95.0-98.0) 03/18/17 17:23 Sodium 141.0 mmol/l (132-148) 03/31/17 08:05 Chloride 116.0 mmol/L (98-107) H 03/31/17 08:05 Glucose 109 mg/dl (65-105) H 03/31/17 08:05 Lactate 1.7 mmol/L (0.7-2.1) 03/31/17 08:05 Liter Flow 3.0 03/18/17 17:23 FiO2 32.0 % 03/18/17 17:23 Sodium 143 mmol/L (132-148) 04/05/17 13:15 Potassium 2.9 mmol/L (3.6-5.2) L 04/05/17 13:15 Chloride 108 mmol/L (98-107) H 04/05/17 13:15 Carbon Dioxide 30 mmol/L (22-30) 04/05/17 13:15 Anion Gap 7 (10-20) L 04/05/17 13:15 BUN 23 mg/dL (7-17) H 04/05/17 13:15 Creatinine 0.6 mg/dL (0.7-1.2) L 04/05/17 13:15 Est GFR ( Amer) > 60 04/05/17 13:15 Est GFR (Non-Af Amer) > 60 04/05/17 13:15 POC Glucose (mg/dL) 241 mg/dL (65-110) H 04/06/17 16:28 Random Glucose 176 mg/dL (65-105) H 04/05/17 13:15 Calcium 7.8 mg/dl (8.6-10.4) L 04/05/17 13:15 Ionized Calcium 5.7 mg/dL (4.80-5.60) H 03/12/17 07:57 Phosphorus 2.3 mg/dL (2.5-4.5) L 03/31/17 08:17 Magnesium 1.6 mg/dL (1.6-2.3) 03/31/17 08:17 Iron 57 ug/dL (37-170) 03/05/17 06:25 TIBC 107 ug/dL (250-450) L 03/05/17 06:25 % Saturation 53 (20-55) 03/05/17 06:25 Ferritin 1200.0 ng/mL 03/05/17 06:25 Total Bilirubin 1.3 mg/dL (0.2-1.3) 04/04/17 14:29 AST 20 U/L (14-36) 04/04/17 14:29 ALT 43 U/L (9-52) 04/04/17 14:29 Alkaline Phosphatase 797 U/L (38-126) H D 04/04/17 14:29 Lactate Dehydrogenase 1324 U/L (313-618) H 03/06/17 11:07 Total Creatine Kinase 25 U/L (30-135) L 03/05/17 20:58 CK-MB (Mass) 0.77 ng/mL (0.0-3.38) 03/05/17 20:58 Troponin I 0.2860 ng/mL (0.00-0.120) H* 03/31/17 08:17 Troponin I, Quant < 0.0120 ng/mL (0.00-0.120) 03/05/17 20:58 C-React Prot High Sens > 15.00 mg/L (1.00-3.00) H 03/12/17 07:57 NT-Pro-B Natriuret Pep 5810 pg/mL (0-900) H 03/05/17 12:48 Total Protein 7.0 g/dL (6.3-8.3) 04/04/17 14:29 Albumin 2.7 g/dL (3.5-5.0) L 04/04/17 14:29 Globulin 4.3 gm/dL (2.2-3.9) H 04/04/17 14:29 Albumin/Globulin Ratio 0.6 (1.0-2.1) L 04/04/17 14:29 Amylase 33 U/L (30-110) 03/15/17 07:35 Lipase 40 U/L (23-300) 03/15/17 07:35 CA 125 Antigen 32.0 U/mL (0-35) 03/05/17 20:58 Vitamin B12 998 pg/mL (239-931) H 04/02/17 14:31 25-OH Vitamin D Total < 12.8 NG/ML (30.0-100.0) L 04/02/17 14:33 Folate 7.7 ng/mL 04/02/17 14:31 Homocysteine 8.2 umol/L (4.7-12.6) 03/12/17 07:02 Procalcitonin 0.51 NG/ML (0.19-0.49) H 04/02/17 09:36 Free T4 1.67 ng/dL (0.78-2.19) 03/12/17 07:57 TSH 3rd Generation 4.23 mIU/L (0.46-4.68) 03/12/17 07:57 Prolactin 15.4 ng/mL (3.0-18.9) 03/12/17 07:02 Venous Blood Potassium 4.2 mmol/L (3.6-5.2) 03/31/17 08:05 Urine Color Yellow (YELLOW) 04/03/17 07:05 Urine Clarity Hazy (Clear) 04/03/17 07:05 Urine pH 5.0 (5.0-8.0) 04/03/17 07:05 Ur Specific [place] 1.014 (1.003-1.030) 04/03/17 07:05 Urine Protein Negative mg/dL (NEGATIVE) 04/03/17 07:05 Urine Glucose (UA) 1+ mg/dL (Normal) 04/03/17 07:05 Urine Ketones Negative mg/dL (NEGATIVE) 04/03/17 07:05 Urine Blood 2+ (NEGATIVE) H 04/03/17 07:05 Urine Nitrate Negative (NEGATIVE) 04/03/17 07:05 Urine Bilirubin Negative (NEGATIVE) 04/03/17 07:05 Urine Urobilinogen Normal mg/dL (0.2-1.0) 04/03/17 07:05 Ur Leukocyte Esterase 1+ Svet[place]ana/uL (Negative) H 04/03/17 07:05 Urine WBC (Auto) 45 /hpf (0-5) H 04/03/17 07:05 Urine RBC (Auto) 53 /hpf (0-3) H 04/03/17 07:05 Ur Squamous Epith Cells 1 /hpf (0-5) 04/03/17 07:05 Urine Bacteria Rare (<OCC) 04/03/17 07:05 Urine Yeast (Budding) Mod /hpf (NEGATIVE) H 04/03/17 07:05 Gentamicin Trough 2.9 ug/mL (0.0-0.9) H* 03/12/17 07:02 Serum Immunofixation Detected (Not Detected) H 03/12/17 07:57 TRACY 6 Profile Negative (NEGATIVE) 03/12/17 07:57 Acetylchol Rcpt Bind Ab 0.41 nmol/L (<=0.30) H 03/12/17 07:57 RPR Nonreactive (NONREACTIVE) 03/12/17 07:57 HIV 1&2 Antibody Screen Negative (NEGATIVE) 03/08/17 08:28 Blood Type O NEGATIVE 04/02/17 09:36 Antibody Screen Negative 04/02/17 09:36 Antibody Titer TEST NOT PERFORMED 03/12/17 07:57 Discharge Exam - Head Exam Head Exam: NORMOCEPHALIC - Eye Exam Eye Exam: Periorbital tenderness Pupil Exam: NORMAL ACCOMODATION - ENT Exam ENT Exam: Normal Exam - Neck Exam Neck exam: Normal Inspection - Respiratory Exam Respiratory Exam: Decreased Breath Sounds - Cardiovascular Exam Cardiovascular Exam: REGULAR RHYTHM - GI/Abdominal Exam GI & Abdominal Exam: Normal Bowel Sounds - Rectal Exam Rectal Exam: Deferred - Exam External exam: NORMAL EXTERNAL EXAM - Extremities Exam Extremities exam: tenderness - Back Exam Back exam: NORMAL INSPECTION - Neurological Exam Neurological exam: Altered - Psychiatric Exam Psychiatric exam: Depressed - Skin Skin Exam: Dry Discharge Plan - Discharge Medications Prescriptions: Fluconazole IV 100mg/50 ml NS [Diflucan IV 100 mg/50 ml NS] 100 mg IV DAILY #7 ml Furosemide [Lasix] 20 mg PO DAILY #30 tab - Follow Up Plan Condition: FAIR Disposition: REHAB FACILITY/REHAB UNIT Instructions: Myelodysplastic Syndromes (DC), Anemia (DC) Referrals: Junito Foster MD [Staff Provider] -
== END 2017-04-06 18:45 | DRG 981 ==
LOC: C.ER 16:31 → C.9E 18:13 → C.3T 18:29 → C.5S 03-12 18:12 → C.3T 03-23 10:30
PROVIDERS: ADMIT Internal Medicine; ATTEND Internal Medicine
PROC: 30233N1 Transfusion of Nonautologous Red Blood Cells into Peripheral Vein, Percutaneous Approach (ICD-10-PCS; principal; 2017-03-04)
PROC: 30233R1 Transfusion of Nonautologous Platelets into Peripheral Vein, Percutaneous Approach (ICD-10-PCS; 2017-03-06)
PROC: 05PY03Z Removal of Infusion Device from Upper Vein, Open Approach (ICD-10-PCS; 2017-03-14)
PROC: 05HM33Z Insertion of Infusion Device into Right Internal Jugular Vein, Percutaneous Approach (ICD-10-PCS; 2017-03-21)
PROC: 02HV33Z Insertion of Infusion Device into Superior Vena Cava, Percutaneous Approach (ICD-10-PCS; 2017-04-04)
DX: D46.9 Myelodysplastic syndrome, unspecified (principal); A41.52 Sepsis due to Pseudomonas; D61.818 Other pancytopenia; I50.33 Acute on chronic diastolic (congestive) heart failure; R65.20 Severe sepsis without septic shock; T80.219A Unspecified infection due to central venous catheter, initial encounter; L03.116 Cellulitis of left lower limb; L03.115 Cellulitis of right lower limb; G70.00 Myasthenia gravis without (acute) exacerbation; J43.9 Emphysema, unspecified; E11.621 Type 2 diabetes mellitus with foot ulcer; E86.0 Dehydration; I11.0 Hypertensive heart disease with heart failure; F32.9 Major depressive disorder, single episode, unspecified; M47.9 Spondylosis, unspecified; F41.9 Anxiety disorder, unspecified; Z90.49 Acquired absence of other specified parts of digestive tract; M51.37 Other intervertebral disc degeneration, lumbosacral region; Y84.6 Urinary catheterization as the cause of abnormal reaction of the patient, or of later complication, without mention of misadventure at the time of the procedure; L85.3 Xerosis cutis; I89.0 Lymphedema, not elsewhere classified; Z74.01 Bed confinement status; E87.6 Hypokalemia; Z51.5 Encounter for palliative care; Z79.4 Long term (current) use of insulin